=== PATIENT | male | born 1950 | race Caucasian/White ===

== ENCOUNTER → 2017-02-09 | Outpatient (CLI) | payer OTHER ==
--- NOTE | 2017-02-11 10:32 | P.ARTDOP ---
Arterial Doppler LOWER EXTREMITY ARTERIAL DOPPLER: DATE OF SERVICE: 02/09/2017 Reason for study: Suspected PVD. Status post revascularization effort of the left leg.. Doppler waveforms: Multiphasic bilaterally throughout. Pulse volume recording: Normal configuration to the ankle level. Some blunting at the toe level.. Pressure gradients: Only at the foot level. Ankle-brachial indices: Greater than 1 bilaterally. Toe pressures: 65 on the right, 68 on the left Impression: Normal from the ankle up. Possible mild distal disease. Perfusion pressures suspected to be adequate for healing..
== END | disposition home or self-care (01) ==
LOC: RADUSWWP 07:00
PROVIDERS: ATTEND Family Medicine
DX: I73.9 Peripheral vascular disease, unspecified (principal)
CPT/HCPCS: 93923

== ENCOUNTER → 2018-07-12 | Outpatient (CLI) | payer OTHER ==
[2018-07-12 13:06] LABS: Blood Urea Nitrogen 11 mg/dL (9-20)
--- NOTE | 2018-07-12 15:00 | CT ---
EXAMINATION TYPE: CT angio abdomen DATE OF EXAM: 07/12/2018 COMPARISON: None HISTORY: Abdominal aortic aneurysm. CT DLP: 1327.7 mGycm, Automated Exposure Control for Dose Reduction was Utilized. CONTRAST: CTA scan of the abdomen and pelvis is performed without oral and without and with IV Contrast, patien t injected with 100ml mL of Isovue 370. Three-D reconstructed images are created on independent works tation and reviewed. FINDINGS: VASCULAR: There is an infrarenal abdominal aortic aneurysm measuring up to 5.0 cm AP diameter by 4.9 cm transversely axial image 46. Extensive mural thrombus is identified. Length of the aneurysm is rou ghly 6 to 7 cm on coronal sagittal images. No extension into common iliac arteries is identified. The re is focal aneurysm in the left common iliac artery shortly after origin however axial image 56 ami uring up to 2.3 cm. There is focal aneurysm mid segment of the right common iliac artery measuring 1. 8 cm on axial image 58. Fairly moderate to severe mixed plaque in the left common iliac artery is not ed. There is stent graft seen distal to this which is likely patent. There is occlusion of the left i nternal iliac artery at its origin. Patency distal to this is noted. There is patency of the bilatera l external iliac arteries. There is moderate plaque in the right internal iliac artery without signif icant stenosis. There is patency common femoral artery level bilaterally with mild calcified plaque. Left groin clips are noted. There is patent celiac axis, SMA, and bilateral single renal arteries whi ch have mild to moderate calcified plaque noted at origin. Patent IGLESIA is identified. Patent posterior lumbar vessel is seen near axial image 44 through intramural thrombus. LUNG BASES: Dependent atelectasis is present. There is 12 x 11 mm lingular nodule or nodular consolid ation axial image 5 favoring round atelectasis. Consider PET/CT to exclude malignancy LIVER/GB: No significant abnormality is appreciated. PANCREAS: No significant abnormality is seen. SPLEEN: No significant abnormality is seen. ADRENALS: No significant abnormality is seen. KIDNEYS: There is simple appearing 2.2 cm cyst posterior laterally mid to lower pole level right kidn ey axial series 8 image 36. BOWEL: There is dilated distal esophagus with air-fluid level. Small hiatal hernia is seen distal to this PROSTATE/SEMINAL VESICLES: Prostate gland is mildly enlarged in size bulging on bladder base, underly ing BPH is felt present. LYMPH NODES: No greater than 1cm abdominal or pelvic lymph nodes are appreciated. OSSEOUS STRUCTURES: Some prominent multilevel spurring in the visualized lower thoracic spine is note d. OTHER: There is unusual earlier opacification of posterior aspect IVC due to opacified lumbar drainin g vessel to right of midline near axial images 27 through 32. Moderate sized fat-containing wide neck umbilical hernia is present axial image 48 series 8. IMPRESSION: 1. There is 5.0 cm infrarenal abdominal aortic aneurysm with extensive mural thrombus occupying up to 70% of vascular lumen, aneurysm is over 6 to 7.0 cm length. Additional focal aneurysm of the bilater al common iliac arteries is seen. There is patent left external iliac artery stent graft with occlusi on of the left internal iliac artery at its origin.
== END ==
LOC: RADCTMAIN 12:26
PROVIDERS: ATTEND Thoracic Surgery (Cardiothoracic Vascular Surgery)
DX: I71.4 Abdominal aortic aneurysm, without rupture (principal); Z95.828 Presence of other vascular implants and grafts
CPT/HCPCS: 82565; 84520; 74175; 36415; Q9967

== ENCOUNTER → 2019-03-09 | Outpatient (CLI) | payer OTHER ==
[2019-03-09 08:09] LABS: African American GFR (CKD) >90 (>60 ml/min/1.73 sqM); Blood Urea Nitrogen 14 mg/dL (9-20); Non-African American GFR(CKD) >90 (>60 ml/min/1.73 sqM)
--- NOTE | 2019-03-10 08:49 | CT ---
EXAMINATION TYPE: CT angio abd aorta w/Runoff DATE OF EXAM: 03/09/2019 12:50 PM COMPARISON: 07/12/2018 HISTORY: Aneurysm CT DLP: 2332.1 mGycm Automated exposure control for dose reduction was used. TECHNIQUE: Performed without and with IV Contrast, patient injected with 125 mL of Isovue 370. Axial, coronal and sagittal images before and after the use of intravenous contrast were performed of the abdomen and pelvis with runoff to the toes. FINDINGS: Noncontrast imaging shows a small amount of linear hyperattenuating material within the aneurysm sac along the right lateral and posterior aspect, which appears to be present on the prior exam. [place] tration of the infrarenal abdominal aortic aneurysm with aneurysmal sac measuring approximately 5.3 x 5.4 x 7.2 cm in AP by transverse by craniocaudad dimension. Previous aneurysm sac size on 07/12/2018 was measuring 5.0 x 4.9 cm in AP by transverse dimension. Redemonstration of extensive mural thrombu s measuring approximately to 7 cm in length. The neural thrombus along the left anterolateral portion of the sac has increased in size now measuring up to 0.7 cm and best seen on axial image 31. There i s redemonstration of posterior focal ulceration which is best seen on image 34. There is a new anteri or focal ulceration which is best seen on axial image 53. Redemonstration of bilateral focal aneurysm s in the proximal left common iliac artery and mid/distal right common iliac artery measuring 2.3 and 1.8 cm, respectively, and similar in size when compared to prior exam. Redemonstration of stent with in the left common iliac artery which is patent. Celiac artery, superior mesenteric artery, bilateral renal arteries and inferior mesenteric artery ar e patent. Bilateral external iliac arteries are patent with a few calcified atherosclerotic plaques. Stable focal aneurysm in the proximal right internal iliac artery measuring up to 0.9 cm. Bilateral i nternal iliac arteries are patent. The common femoral artery, deep profunda artery, superficial femoral artery, popliteal artery and angie f vessels are patent with runoff to the ankles/toes. A few scattered atheromatous plaques are seen ne ar the bifurcation of the femoral artery, but no significant flow restrictive stenosis is identified. Previously identified left upper lobe lingular nodular consolidation is not imaged. Reflux of contrast within the hepatic veins immediately basis of right heart failure. Liver, spleen, adrenal glands, pancreas appear grossly unremarkable. Symmetric perfusion the bilateral kidneys with midpole renal cyst measuring up to 2.5 cm Small hiatal hernia. Bowel gas pattern is nonobstructive. Pelvic structures appear grossly unremarkable. Redemonstration of small umbilical hernia measuring up to 1.8 cm. No evidence of osteolytic or osteoblastic lesions. IMPRESSION: INCREASING SIZE OF ABDOMINAL AORTIC ANEURYSM WHICH NOW MEASURES UP TO 5.4 CM WITH PREVIOUS MEASUREMEN T OF 5.0 CM. NEW FOCAL ULCERATION IN THE ANTEROLATERAL WALL MID INFRARENAL ABDOMINAL AORTIC ANEURYSM WITH INCREASE SIZE ALONG THE LEFT ANTEROLATERAL ASPECT OF THE MURAL THROMBUS. SURGICAL CONSULTATION I S RECOMMENDED. LEFT COMMON ILIAC STENT IS PATENT. PATENCY OF THE ARTERIAL VASCULATURE WITHIN THE BILATERAL LOWER EXTREMITIES WITHOUT EVIDENCE OF FLOW R ESTRICTIVE STENOSIS. STABLE BILATERAL COMMON ILIAC ARTERY ANEURYSMS. These findings were discussed with Dr. Coreas by Dr. Rueda at 8:43 AM on 03/10/2019.
== END | disposition home or self-care (01) ==
LOC: RADCTMAIN 07:11
DX: I71.4 Abdominal aortic aneurysm, without rupture (principal)
CPT/HCPCS: 82565; 84520; 75635; 36415; Q9967

== ENCOUNTER → 2019-06-16 | Outpatient (CLI) | payer OTHER ==
[2019-06-16 09:12] LABS: Basophils # (A) 0.1 k/uL (0-0.2); Basophils % (A) 1 %; Eosinophils # (A) 0.6 k/uL (0-0.7); Eosinophils % (A) 8 %; HCT 48.9 % (39.0-53.0); HGB 16.2 gm/dL (13.0-17.5); Lymphocytes # (A) 1.7 k/uL (1.0-4.8); Lymphocytes % (A) 23 %; MCH 32.9 pg (25.0-35.0); MCHC 33.1 g/dL (31.0-37.0); MCV 99.4 fL (80.0-100.0); Mean Platelet Volume 6.2; Monocytes # (A) 0.5 k/uL (0-1.0); Monocytes % (A) 6 %; Neutrophils # (A) 4.4 k/uL (1.3-7.7); Neutrophils % (A) 59 %; Platelet Count 226 k/uL (150-450); RBC 4.92 m/uL (4.30-5.90); RDW 12.5 % (11.5-15.5); WBC 7.3 k/uL (3.8-10.6)
[2019-06-16 17:33] LABS: African American GFR (CKD) 110.8 (60.0-200.0); Anion Gap 5.3 mmol/L (4.00-12.00); Carbon Dioxide 26.7 mmol/L (21.6-31.8); Non-African American GFR(CKD) 95.6 (60.0-200.0); Potassium 4.6 mmol/L (3.5-5.5)
== END | disposition home or self-care (01) ==
LOC: LABWHC1 08:30
PROVIDERS: ATTEND Surgery
DX: Z01.812 Encounter for preprocedural laboratory examination (principal); I71.4 Abdominal aortic aneurysm, without rupture
CPT/HCPCS: 36415; 80051; 82565; 84520; 85025

== ENCOUNTER 2019-06-28 07:14 | Inpatient (IN) | payer OTHER ==
[2019-06-21 13:31] VITALS: BMI 25.1
[~2019-06-28 07:14] MED LIST: ALBUMIN HUMAN 5% 250 ML in EMPTY BAG 1 BAG IVPB ONE; CALCIUM CHLORIDE 100 MG/ML 10 ML SYRINGE IVP ONE; CHLORHEXIDINE GLUCONATE 15 ML CUP MUCOUS MEM ONE; EPINEPHrine 10 ML SYRINGE (0.1 MG/ML) IV ONE; HEPARIN SODIUM 1,000 UN/ML (10ML VL) IV ONE; NITROGLYCERIN-D5W PMX 50 MG in DEXTROSE/WATER 1 250ML.BAG IV ONE; NOREPINEPHRINE 4 MG in SODIUM CHLORIDE 0.9% 250 ML IV ONE; PHENYLEPHRINE 10 MG/ML VIAL IV ONE; SODIUM BICARB 8.4% 50 ML SYR (1 MEQ/ML) IV ONE
[2019-06-28] MEDS ORDERED: SODIUM CHLORIDE 0.9% 1,000 ML IV ONE (07:50)
[2019-06-28 08:00] LABS: Basophils % (A) 0 %; Eosinophils # (A) 0.9 k/uL (0-0.7); Eosinophils % (A) 14 %; HCT 49.9 % (39.0-53.0); HGB 16.4 gm/dL (13.0-17.5); Lymphocytes # (A) 1.8 k/uL (1.0-4.8); Lymphocytes % (A) 26 %; MCH 32.5 pg (25.0-35.0); MCHC 32.9 g/dL (31.0-37.0); MCV 98.5 fL (80.0-100.0); Mean Platelet Volume 6.3; Monocytes # (A) 0.4 k/uL (0-1.0); Monocytes % (A) 5 %; Neutrophils # (A) 3.6 k/uL (1.3-7.7); Neutrophils % (A) 53 %; Platelet Count 193 k/uL (150-450); RBC 5.06 m/uL (4.30-5.90); RDW 12.3 % (11.5-15.5); WBC 6.9 k/uL (3.8-10.6)
[2019-06-28 08:09] LABS: African American GFR (CKD) >90 (>60 ml/min/1.73 sqM); Anion Gap 7 mmol/L; Blood Urea Nitrogen 14 mg/dL (9-20); Calcium 9.5 mg/dL (8.4-10.2); Carbon Dioxide 28 mmol/L (22-30); Chloride 105 mmol/L (98-107); Glucose 83 mg/dL (74-99); Non-African American GFR(CKD) >90 (>60 ml/min/1.73 sqM); Potassium 4.7 mmol/L (3.5-5.1); Sodium 140 mmol/L (137-145)
[2019-06-28] MEDS ORDERED: MIDAZOLAM 1 MG/ML 5 ML VIAL IV STA (08:39)
[2019-06-28] MEDS ORDERED: GLYCOPYRROLATE 0.2 MG/ML 2 ML VIAL ONE (10:34)
[2019-06-28] MEDS ORDERED: ePHEDrine SULFATE/0.9% NACL/PF 50 MG/5 ML SYRINGE IV ONE (10:34)
[2019-06-28] MEDS ORDERED: ONDANSETRON 4 MG/2 ML VIAL ONE (10:34)
[2019-06-28] MEDS ORDERED: LABETALOL 5 MG/ML VIAL MDV ONE (10:34)
[2019-06-28] MEDS ORDERED: LIDOCAINE 1% INJ 10MG/ML (20 ML MDV) ONE (10:34)
[2019-06-28] MEDS ORDERED: fentaNYL (PF) 50 MCG/ML 2 ML AMP ONE (10:34)
[2019-06-28] MEDS ORDERED: ROCURONIUM BROMIDE 10 MG/ML 10 ML VIAL IV ONE (10:34)
[2019-06-28] MEDS ORDERED: PROPOFOL 10 MG/ML 20 ML VIAL IV ONE (10:34)
[2019-06-28] MEDS ORDERED: HEPARIN SODIUM,PORCINE 10,000 UNIT/ML 1 ML VIAL ONE (10:34)
[2019-06-28] MEDS ORDERED: NEOSTIGMINE 1 MG/ML 10 ML VIAL ONE (10:34)
[2019-06-28] MEDS ORDERED: LIDOCAINE 1% INJ 10MG/ML (20 ML MDV) SQ ONE (11:10)
[2019-06-28] MEDS ORDERED: IOPAMIDOL-300 100ML BTL INJ ONE ×2 (12:36→12:37)
[2019-06-28] MEDS ORDERED: IOPAMIDOL-370 50ML BTL INJ ONE (12:37)
--- NOTE | 2019-06-28 12:59 | P.OP ---
Date of Procedure: 06/28/19 Preoperative Diagnosis: Infrarenal abdominal aortic aneurysm measuring 5.5 cm with small infrarenal aortic dissection. Right common iliac artery ectasia. Postoperative Diagnosis: Same plus type II endoleak Procedure(s) Performed: 1. Endovascular aortic repair with ovation Ix graft 2. Intravascular ultrasound of the aorta, bilateral iliac arteries. 3. Ultrasound-guided access of bilateral common femoral arteries 4. Perclose closure device placement bilateral common femoral arteries. Anesthesia: OLIA Surgeon: Kwabena Ford Estimated Blood Loss (ml): 30 IV fluids (ml): 950 Urine output (ml): 150 Pathology: none sent Condition: stable Disposition: PACU Indications for Procedure: 69-year-old gentleman presents to the hospital for elective repair of infrarenal abdominal aortic aneurysm measuring 5.5 cm on recent CTA. On ultrasound it was noted to be greater than 5-1/2 cm. He also had a iliac ectasia. Operative Findings: Intravascular ultrasound demonstrated 5.5 cm aneurysm. Description of Procedure: After written informed consent was obtained the patient all risks benefits competitions were described the patient is brought to the Guidance Secretary laid in supine position. The area of the groins were prepped and draped in usual sterile fashion after appropriate anesthetic was performed per the anesthesiologist. A timeout was performed in normal fashion and antibiotics were administered prior to incision. Utilizing ultrasound the bilateral common femoral arteries were visualized shown to be patent without any significant calcification. Under ultrasound guidance and utilizing a multipurpose needle of the common femoral arteries were accessed bilaterally. 035 Glidewire were placed followed by Perclose closure devices 2 in each groin. A 7-Albanian she ath was then placed in normal fashion. 035 Glidewire was then placed into the aorta and 7-Albanian sheath was removed and a 10-Albanian sheath was placed followed by IVUS catheter. IVUS catheter was then placed at the L2 vertebra level to visualize the takeoff of the renal arteries bilaterally. At the 13 mm distal aspect of the renal arteries measurements were obtained on either this which were 20.5 x 21 mm. This therefore called for a 26 mm main body graft. IVUS catheter was then taken up above the renal arteries and wire was exchanged for a Lunderquist wire. A 26 mm main body graft was then placed over the Lunderquist wire after removal of the 7-Albanian sheath at the L2 vertebra level. Pigtail catheter was then placed up the left femoral sheath. Angiogram of the aorta and iliacs were then obtained demonstrating patent aorta and common iliacs with occluded internal iliac artery on the left with reconstitution. The main body was then deployed in normal fashion just distal to the renal arteries. Polymer was then placed under direct visualization of fluoroscopy in normal fashion. 035 Glidewire and pigtail catheter were withdrawn and the contralateral limb was cannulated with the 035 Glidewire and an angled glide catheter. Once into the gate the catheter was removed replaced with an IVUS catheter and gate cannulation was confirmed. Wire was then exchanged for a Lunderquist wire and retrograde angiogram was obtained delineating the internal iliac artery which was just distal to the existing stent in the common iliac artery. A 12 x 140 mm contralateral iliac limb was then deployed in normal fashion after removal of the existing sheath. Once completed attention was then placed back to the main body and final deployment was performed. Wire was once again replaced into the aorta and the deployment device was removed. IVUS catheter was once again placed up the ipsilateral limb and retrograde angiogram was obtained to delineate the internal iliac artery. A 22 x 140 mm brito bottom limb was then placed in the ipsilateral iliac in normal fashion. Utilizing a Q50 balloon balloon angioplasty was performed at the rings. Two 10 x 40 mm balloons were then placed in a kissing fashion along the areas of the overlapping grafts. Final angiogram was obtained via pigtail catheter which demonstrated no evidence of a type I, type III or type IV endoleak. There was a late type II endoleak from a sacral artery as well as the inferior mesenteric artery in a retrograde fashion. All guidewires and catheters were removed Perclose closure devices were secured for hemostasis. Hemostasis was achieved and dressings were placed. The patient all procedure well and was sent to PACU for recovery. He had palpable PT pulses at the conclusion of the procedure.
[2019-06-28 14:10] LABS: Glucose,Whole Blood 55 mg/dL (75-99)
[2019-06-28] MEDS ORDERED: DEXTROSE 10 % IN WATER 250 ML IV ONE (14:32)
[2019-06-28 14:50] LABS: Glucose,Whole Blood 61 mg/dL (75-99)
[2019-06-28 14:50] LABS: Glucose,Whole Blood 54 mg/dL (75-99)
[2019-06-28 14:57] LABS: Glucose,Whole Blood 66 mg/dL (75-99)
[2019-06-28 15:03] LABS: Basophils % (A) 0 %; Eosinophils # (A) 0.9 k/uL (0-0.7); Eosinophils % (A) 11 %; HCT 48.1 % (39.0-53.0); Lymphocytes # (A) 1.9 k/uL (1.0-4.8); Lymphocytes % (A) 23 %; MCH 32.7 pg (25.0-35.0); MCHC 33.3 g/dL (31.0-37.0); MCV 98.1 fL (80.0-100.0); Mean Platelet Volume 6.5; Monocytes # (A) 0.3 k/uL (0-1.0); Monocytes % (A) 4 %; Neutrophils # (A) 4.9 k/uL (1.3-7.7); Neutrophils % (A) 60 %; Platelet Count 174 k/uL (150-450); RDW 12.4 % (11.5-15.5); WBC 8.1 k/uL (3.8-10.6)
[2019-06-28] MEDS ORDERED: hydrALAZINE HCL 20 MG/ML 1 ML VIAL IVP STA (15:04)
[2019-06-28 15:09] LABS: Glucose,Whole Blood 102 mg/dL (75-99)
[2019-06-28 15:18] LABS: African American GFR (CKD) >90 (>60 ml/min/1.73 sqM); Anion Gap 6 mmol/L; Blood Urea Nitrogen 12 mg/dL (9-20); Calcium 8.8 mg/dL (8.4-10.2); Carbon Dioxide 20 mmol/L (22-30); Chloride 109 mmol/L (98-107); Glucose 212 mg/dL (74-99); Non-African American GFR(CKD) >90 (>60 ml/min/1.73 sqM); Potassium 4.5 mmol/L (3.5-5.1); Sodium 135 mmol/L (137-145)
[2019-06-28] MEDS ORDERED: CLEVIDIPINE BUTYRATE 25 MG in EMPTY BAG 1 BAG IV SCH (15:30)
--- NOTE | 2019-06-28 15:32 | P.CONS ---
History of Present Illness - Reason for Consult Consult date: 06/28/19 COPD Requesting physician: Kwabena Ford - Chief Complaint Abdominal aortic aneurysm - History of Present Illness patient is a 69-year-old male past medical history of tobacco abuse, dyslipidemia, GERD, and beginning stages of COPD presented for elective abdomin al aortic aneurysmrepair. He underwent endovascular aortic repair with placement of one graft. He has subsequently admitted to the ICU. He did not have any immediate postoperative complications. On arrival to the ICU he was hypertensive with a blood pressure of 168/86. patient seen and examined at bedside. He denies any lightheadedness, dizziness, nausea and vomiting, chest pain, or shortness of breath. He states that his normal state of health prior to surgery. He hasn't had any recent illnesses. He has not had any recent adjustment in his medications. He admits to being noncompliant with his cholesterol medications. He states that his aortic aneurysm was found 3 months ago on a routine screening exam ordered through the [place] and in [place]. Review of Systems Pertinent positives and negatives as discussed in HPI, a complete review of systems was performed and all other systems are negative. Past Medical History Past Medical History: COPD, GERD/Reflux, Pneumonia Additional Past Medical History / Comment(s): aortic aneurysm, dyslipidemia History of Any Multi-Drug Resistant Organisms: None Reported Past Surgical History: Appendectomy Additional Past Surgical History / Comment(s): iliac stent, aortic stent Past Anesthesia/Blood Transfusion Reactions: No Reported Reaction Smoking Status: Current every day smoker Past Alcohol Use History: Heavy Additional History: initial patient tells me he drinks 6 beers daily, but he changes it to 2-3 beers on the weekends, his story is rather inconsistent. He lives alone. He does not use any assistive devices. - Past Family History Mother Family Medical History: Liver Disease Additional Family Medical History / Comment(s): liver cirrhosis Brother(s) Family Medical History: Vascular Disorder Father Family Medical History: Myocardial Infarction (SD) Medications and Allergies Home Medications Medication Instructions Recorded Confirmed Type Albuterol Sulfate [Ventolin HFA] 1 - 2 puff INHALATION Q6H PRN 06/21/19 06/21/19 History Aspirin 81 mg PO DAILY 06/21/19 06/28/19 History Atorvastatin Calcium [Lipitor] 20 mg PO HS 06/21/19 06/28/19 History Budesonide-Formot 160-4.5 Mcg 2 puff INHALATION RT-BID 06/21/19 06/28/19 History [Symbicort 160-4.5 Mcg Inhaler (Bulk)] Ipratropium-Albuterol Nebulize 3 ml INHALATION Q6H PRN 06/21/19 06/21/19 History [Duoneb 0.5 mg-3 mg/3 ml Soln] Omeprazole 20 mg PO QAM 06/21/19 06/28/19 History Ranitidine HCl 150 mg PO HS 06/21/19 06/28/19 History Allergies Allergy/AdvReac Type Severity Reaction Status Date / Time tomato AdvReac acid reflux Verified 06/21/19 13:11 Physical Exam Osteopathic Statement: *. No significant issues noted on an osteopathic structural exam other than those noted in the History and Physical/Consult. Vitals: Vital Signs Temp Pulse Resp BP Pulse Ox 06/28/19 13:39 54 L 16 167/88 98 06/28/19 13:25 55 L 16 168/86 98 06/28/19 13:10 56 L 18 172/90 100 06/28/19 12:55 97 F L 62 16 165/79 94 L 06/28/19 07:41 97.8 F 62 16 161/71 97 Intake and Output 06/28/19 06/28/19 06/28/19 06:59 14:59 22:59 Intake Total 1075 Output Total 400 Balance 675 Intake: IV 1075 Output: Urine 400 Other: Weight 79.6 kg General: non toxic, no distress, appears at stated age, normal weight Derm: no unusual rashes/lesions no unusual ecchymoses, warm, dry Head: atraumatic, normocephalic, symmetric Eyes: EOMI, no lid lag, anicteric sclera, pupils equal round reactive to lightENT: Nose and ears atraumatic, no thrush, no pharyngeal erythema Neck: No thyromegaly, no cervical lymphadenopathy, trachea midline, supple Mouth: no lip lesion, mucus membranes moist Cardiovascular: S1S2 reg, no murmur, palpableherself pedis pulses on right foot, dopplerabledorsalis pedis pulse left foot, no edema, capillary refill less than 2 seconds Lungs: decreased breath sounds bilateral, no rhonchi, no rales , no accessory muscle use Abdominal: soft, nontender to palpation, no guarding, no appreciable organomegaly, normal bowel sounds Ext: no gross muscle atrophy, muscle strength 5 out of 5 in all 4 extremities grossly, no contractures, Neuro: CN II-XI grossly intact, light touch intact all 4 extremities, finger to nose within normal limits, Psych: Alert, oriented, appropriate affect Results CBC & Chem 7: 06/28/19 14:42 06/28/19 07:43 Labs: Abnormal Lab Results - Last 24 Hours (Table) 06/28/19 06/28/19 06/28/19 Range/Units 07:43 13:58 14:15 Eosinophils # 0.9 H (0-0.7) k/uL POC Glucose (mg/dL) 55 L 61 L (75-99) mg/dL 06/28/19 06/28/19 06/28/19 Range/Units 14:31 14:42 14:45 Eosinophils # 0.9 H (0-0.7) k/uL POC Glucose (mg/dL) 54 L 66 L (75-99) mg/dL Assessment and Plan Assessment: Elevated blood pressure without diagnosis of hypertension - IV hydralazine ordered by Vascular surgery - Follow BP - ? related tro ETOH w/d, trial dose of ativan - Clevidipine ordered by critical care HLD - statin therapy Tobacco abuse - cessation - nicotine replacement GERD - PPI and H2 veronica from home reordered Alcohol misuse - CIWI protocol - Thiamine and folic acid COPD without exacerbation - Resume more symbicort and prn duonebs - Pulmonary hygiene DVT prophylaxis: SCDs Discussed with: Patient, nursing, family Anticipated discharge: in AM Anticipated discharge place: home A total of 40 minutes was spent on the care of this complex patient more than 50% of the time was spent in counseling and care coordination. Patient's PCP apparently is typically seen by [facility] and we will transfer medical management to them in AM. D/W Dr. Stapleton.
--- NOTE | 2019-06-28 16:22 | P.CNPUL ---
History of Present Illness Consult date: 06/28/19 Reason for consult: other Chief complaint: Abdominal aortic aneurysm, status post endovascular repair History of present illness: This is a 69-year-old white male patient with has medical history of 48 years of smoking, GERD/reflux, dyslipidemia, who presented today on 06/28/2019 for elective repair of abdominal aortic aneurysm. Patient had endovascular aortic repair with placement of a graft. He was admitted to the intensive care unit in the postoperative period and we are consulted for intensive care management, requiring our evaluation patient is resting in bed in reverse Trendelenburg, awake and alert, in no acute distress other than some discomfort from the indwelling catheter. Denies any pain, denies any shortness of breath, no chest pain, he is a bit hypertensive with a systolic in the 160-170 range, afebrile, room air pulse ox is 98%, lung sounds are positive for a few scattered rhonchi and wheezing. Today's labs have been reviewed, no new chest x-ray. Review of Systems All systems: negative Constitutional: Denies chills, Denies fever Eyes: denies blurred vision, denies pain Ears, nose, mouth and throat: Denies headache, Denies sore throat Cardiovascular: Denies chest pain, Denies shortness of breath Respiratory: Denies cough Gastrointestinal: Denies abdominal pain, Denies diarrhea, Denies nausea, Denies vomiting Musculoskeletal: Denies myalgias Integumentary: Denies pruritus, Denies rash Neurological: Denies numbness, Denies weakness Psychiatric: Denies anxiety, Denies depression Endocrine: Denies fatigue, Denies weight change Past Medical History Past Medical History: COPD, GERD/Reflux, Pneumonia Additional Past Medical History / Comment(s): aortic aneurysm, dyslipidemia History of Any Multi-Drug Resistant Organisms: None Reported Past Surgical History: Appendectomy Additional Past Surgical History / Comment(s): iliac stent, aortic stent Past Anesthesia/Blood Transfusion Reactions: No Reported Reaction Smoking Status: Current every day smoker Past Alcohol Use History: Heavy - Past Family History Mother Family Medical History: Liver Disease Additional Family Medical History / Comment(s): liver cirrhosis Brother(s) Family Medical History: Vascular Disorder Father Family Medical History: Myocardial Infarction ([place]) Medications and Allergies Home Medications Medication Instructions Recorded Confirmed Type Albuterol Sulfate [Ventolin HFA] 1 - 2 puff INHALATION Q6H PRN 06/21/19 06/21/19 History Aspirin 81 mg PO DAILY 06/21/19 06/28/19 History Atorvastatin Calcium [Lipitor] 20 mg PO HS 06/21/19 06/28/19 History Budesonide-Formot 160-4.5 Mcg 2 puff INHALATION RT-BID 06/21/19 06/28/19 History [Symbicort 160-4.5 Mcg Inhaler (Bulk)] Ipratropium-Albuterol Nebulize 3 ml INHALATION Q6H PRN 06/21/19 06/21/19 History [Duoneb 0.5 mg-3 mg/3 ml Soln] Omeprazole 20 mg PO QAM 06/21/19 06/28/19 History Ranitidine HCl 150 mg PO HS 06/21/19 06/28/19 History Allergies Allergy/AdvReac Type Severity Reaction Status Date / Time tomato AdvReac acid reflux Verified 06/21/19 13:11 Physical Exam Vitals: Vital Signs Temp Pulse Resp BP Pulse Ox 06/28/19 13:39 54 L 16 167/88 98 06/28/19 13:25 55 L 16 168/86 98 06/28/19 13:10 56 L 18 172/90 100 06/28/19 12:55 97 F L 62 16 165/79 94 L 06/28/19 07:41 97.8 F 62 16 161/71 97 Intake and Output 06/28/19 06/28/19 06/28/19 06:59 14:59 22:59 Intake Total 1075 Output Total 400 Balance 675 Intake: IV 1075 Output: Urine 400 Other: Weight 79.6 kg GENERAL EXAM: Alert, very pleasant, 69-year-old white male, sitting in bed in the intensive care unit in reverse Trendelenburg comfortable in no apparent distress. HEAD: Normocephalic/atraumatic. EYES: Normal reaction of pupils, equal size. Conjunctiva pink, sclera white. NOSE: Clear with pink turbinates. THROAT: No erythema or exudates. NECK: No masses, no JVD, no thyroid enlargement, no adenopathy. CHEST: No chest wall deformity. Symmetrical expansion. LUNGS: Equal air entry with scattered wheezes and rhonchi CVS: Regular rate and rhythm, normal S1 and S2, no gallops, no murmurs, no rubs ABDOMEN: Soft, nontender. No hepatosplenomegaly, normal bowel sounds, no guarding or rigidity. EXTREMITIES: No clubbing, no edema, no cyanosis, 2+ pulses and upper and lower extremities. Bilateral groin incisions are clean dry and intact covered with surgical dressings MUSCULOSKELETAL: Muscle strength and tone normal. SPINE: No scoliosis or deformity SKIN: No rashes CENTRAL NERVOUS SYSTEM: Alert and oriented -3. No focal deficits, tone is normal in all 4 extremities. PSYCHIATRIC: Alert and oriented -3. Appropriate affect. Intact judgment and insight. Results - Laboratory Findings CBC and BMP: 06/28/19 14:42 06/28/19 14:42 Abnormal lab findings: Abnormal Labs 06/28/19 06/28/19 06/28/19 07:43 13:58 14:15 Eosinophils # 0.9 H Sodium Chloride Carbon Dioxide Creatinine Glucose POC Glucose (mg/dL) 55 L 61 L 06/28/19 06/28/19 06/28/19 14:31 14:42 14:42 Eosinophils # 0.9 H Sodium 135 L Chloride 109 H Carbon Dioxide 20 L Creatinine 0.65 L Glucose 212 H POC Glucose (mg/dL) 54 L 06/28/19 06/28/19 14:45 14:58 Eosinophils # Sodium Chloride Carbon Dioxide Creatinine Glucose POC Glucose (mg/dL) 66 L 102 H Assessment and Plan Plan: Assessment: #1. Abdominal aortic aneurysm measuring 5.5 cm with small infrarenal aortic dissection, and right common iliac artery ectasia, status post endovascular repair with stent placement, postop day 0 #2. Chronic tobacco abuse, patient carries at least 40+ some years of smoking #3. Dyslipidemia #4. Hypertension #5. Previous episode of pneumonia #6. EtOH abuse Plan: Start Cleviprex for blood pressure control to keep systolic under 150 mmHg. Continue breathing treatments. [facility] protocol for possibility of acute alcohol withdrawal. Close hemodynamic monitoring, antibiotics per surgery. We'll continue to follow I performed a history & physical examination of the patient and discussed their management with my nurse practitioner, Glenda Avila. I reviewed the nurse practitioner's note and agree with the documented findings and plan of care. Lung sounds are positive for diffuse wheezes throughout the lung franklin. The findings and the impression was discussed with the patient. I attest to the do cumentation by the nurse practitioner. Time with Patient: Greater than 30
[2019-06-28] MEDS: IPRATROPIUM-ALBUTEROL 3 ML NEB INHALATION PRN (17:35)
[2019-06-28] MEDS: SYMBICORT 160-4.5 MCG INHALER INHALATION SCH (19:36)
[2019-06-28] MEDS: SODIUM CHLORIDE 0.9% 1,000 ML IV SCH ×2 (20:26→20:35)
[2019-06-28 20:40] LABS: Glucose,Whole Blood 128 mg/dL (75-99)
[2019-06-28] MEDS ORDERED: FAMOTIDINE 20 MG TAB PO SCH (21:00)
[2019-06-28] MEDS ORDERED: ATORVASTATIN 20 MG TAB PO SCH (21:00)
[2019-06-28] MEDS ORDERED: PRAVASTATIN SODIUM 40 MG TAB PO SCH (21:00)
[2019-06-29 05:39] LABS: African American GFR (CKD) >90 (>60 ml/min/1.73 sqM); Non-African American GFR(CKD) >90 (>60 ml/min/1.73 sqM)
[2019-06-29] MEDS ORDERED: PANTOPRAZOLE 40 MG TABLET PO SCH (07:30)
[2019-06-29] MEDS: SYMBICORT 160-4.5 MCG INHALER INHALATION SCH (07:35)
[2019-06-29] MEDS: IPRATROPIUM-ALBUTEROL 3 ML NEB INHALATION PRN (07:35)
[2019-06-29] MEDS: SODIUM CHLORIDE 0.9% 1,000 ML IV SCH (08:26)
[2019-06-29] MEDS ORDERED: NICOTINE 14MG/24HR PATCH TRANSDERM SCH (09:00)
[2019-06-29] MEDS ORDERED: ASPIRIN 81 MG PO SCH (09:00)
[2019-06-29] MEDS ORDERED: FOLIC ACID 1 MG TAB PO SCH (09:00)
[2019-06-29] MEDS ORDERED: THIAMINE 100 MG TAB PO SCH (09:00)
[2019-06-29 09:02] LABS: HCT 46.6 % (39.0-53.0); HGB 15.9 gm/dL (13.0-17.5); MCH 33.1 pg (25.0-35.0); MCHC 34.1 g/dL (31.0-37.0); MCV 97.1 fL (80.0-100.0); Mean Platelet Volume 6.1; Platelet Count 184 k/uL (150-450); RDW 12.5 % (11.5-15.5); WBC 10.5 k/uL (3.8-10.6)
[2019-06-29 09:14] LABS: African American GFR (CKD) >90 (>60 ml/min/1.73 sqM); Anion Gap 9 mmol/L; Blood Urea Nitrogen 11 mg/dL (9-20); Calcium 9.4 mg/dL (8.4-10.2); Carbon Dioxide 21 mmol/L (22-30); Chloride 109 mmol/L (98-107); Glucose 190 mg/dL (74-99); Non-African American GFR(CKD) >90 (>60 ml/min/1.73 sqM); Potassium 4.2 mmol/L (3.5-5.1); Sodium 139 mmol/L (137-145)
--- NOTE | 2019-06-29 11:24 | P.PN ---
Subjective Progress Note Date: 06/29/19 Principal diagnosis: Abdominal aortic aneurysm, status post endovascular repair postoperative day #1 This is a 69-year-old white male patient with has medical history of 48 years of smoking, GERD/reflux, dyslipidemia, who presented today on 06/28/2019 for elective repair of abdominal aortic aneurysm. Patient had endovascular aortic repair with placement of a graft. He was admitted to the intensive care unit in the postoperative period and we are consulted for intensive care management, requiring our evaluation patient is resting in bed in reverse Trendelenburg, awake and alert, in no acute distress other than some discomfort from the indwelling catheter. Denies any pain, denies any shortness of breath, no chest pain, he is a bit hypertensive with a systolic in the 160-170 range, afebrile, room air pulse ox is 98%, lung sounds are positive for a few scattered rhonchi and wheezing. Today's labs have been reviewed, no new chest x-ray. Reevaluated today on 06/29/2019, patient is doing great, he is off clevidipine drip, he is hemodynamically stable, in no form of distress. CBC is relatively unremarkable today, a left lites are normal and renal profile is normal. Hence patient is being considered for discharge today. Objective - Vital Signs Vital signs: Vital Signs Temp 96.7 F L 06/29/19 08:00 Pulse 51 L 06/29/19 11:00 Resp 19 06/29/19 11:00 BP 104/78 06/29/19 11:00 Pulse Ox 95 06/29/19 11:00 Intake & Output 06/28/19 06/29/19 06/29/19 18:59 06:59 18:59 Intake Total 2245 1300 400 Output Total 1130 1320 250 Balance 1115 -20 150 Weight 79.6 kg 81 kg Intake: IV 1575 1100 400 Sodium Chloride 0.9% 1, 500 1100 400 000 ml @ 100 mls/hr IV . Q10H [facility] Rx#:[id number] Oral 670 200 Output: Urine 1130 1320 250 Other: Voiding Method Indwelling Catheter Indwelling Catheter Indwelling Catheter ABP, PAP, CO, CI - Last Documented Arterial Blood Pressure 137/82 - Exam GENERAL EXAM: Alert, very pleasant, 69-year-old white male, and a bedside chair, on room air, in no distress. HEENT: PERRLA, EOMI, no active. No neck masses no JVD, no stridor. CHEST: No chest wall deformity. Symmetrical expansion. LUNGS: Equal air entry with scattered wheezes and rhonchi CVS: Regular rate and rhythm, normal S1 and S2, no gallops, no murmurs, no rubs ABDOMEN: Soft, nontender. No hepatosplenomegaly, normal bowel sounds, no guarding or rigidity. EXTREMITIES: No clubbing, no edema, no cyanosis, 2+ pulses and upper and lower extremities. Bilateral groin incisions are clean dry and intact covered with surgical dressings MUSCULOSKELETAL: Muscle strength and tone normal. SPINE: No scoliosis or deformity SKIN: No rashes CENTRAL NERVOUS SYSTEM: Alert and oriented -3. No focal deficits, tone is normal in all 4 extremities. PSYCHIATRIC: Alert and oriented -3. Appropriate affect. Intact judgment and insight. - Labs CBC & Chem 7: 06/29/19 08:43 06/29/19 08:43 Labs: Abnormal Lab Results - Last 24 Hours (Table) 06/28/19 06/28/19 06/28/19 Range/Units 13:58 14:15 14:31 Eosinophils # (0-0.7) k/uL Sodium (137-145) mmol/L Chloride (98-107) mmol/L Carbon Dioxide (22-30) mmol/L Creatinine (0.66-1.25) mg/dL Glucose (74-99) mg/dL POC Glucose (mg/dL) 55 L 61 L 54 L (75-99) mg/dL 06/28/19 06/28/19 06/28/19 Range/Units 14:42 14:42 14:45 Eosinophils # 0.9 H (0-0.7) k/uL Sodium 135 L (137-145) mmol/L Chloride 109 H (98-107) mmol/L Carbon Dioxide 20 L (22-30) mmol/L Creatinine 0.65 L (0.66-1.25) mg/dL Glucose 212 H (74-99) mg/dL POC Glucose (mg/dL) 66 L (75-99) mg/dL 06/28/19 06/28/19 06/29/19 Range/Units 14:58 20:29 05:04 Eosinophils # (0-0.7) k/uL Sodium (137-145) mmol/L Chloride (98-107) mmol/L Carbon Dioxide (22-30) mmol/L Creatinine 0.61 L (0.66-1.25) mg/dL Glucose (74-99) mg/dL POC Glucose (mg/dL) 102 H 128 H (75-99) mg/dL 06/29/19 Range/Units 08:43 Eosinophils # (0-0.7) k/uL Sodium (137-145) mmol/L Chloride 109 H (98-107) mmol/L Carbon Dioxide 21 L (22-30) mmol/L Creatinine 0.62 L (0.66-1.25) mg/dL Glucose 190 H (74-99) mg/dL POC Glucose (mg/dL) (75-99) mg/dL Assessment and Plan Assessment: #1. Abdominal aortic aneurysm measuring 5.5 cm with small infrarenal aortic dissection, and right common iliac artery ectasia, status post endovascular repair with stent placement, postoperative day #1. #2. Chronic tobacco abuse, patient carries at least 40+ some years of smoking however the patient has no active symptoms of shortness of breath. Counseled regarding smoking cessation. #3. Dyslipidemia #4. Hypertension #5. Previous episode of pneumonia #6. EtOH abuse Recommendation: Continue present treatment plan, resume home meds, clear from my perspective for discharge planning if cleared to go home by surgery. Patient can follow-up with me on outpatient basis if there is any concern about his pulmonary status in the future. Time with Patient: Less than 30
[2019-06-29 12:13] VITALS: TEMP 97.6
--- NOTE | 2019-06-29 13:19 | P.DS ---
Providers Date of admission: 06/28/19 07:14 Attending physician: Kwabena Ford DO Consults: 06/28/19 15:10 Consult Physician Routine Consulting Provider: Cameron Pollock Consult Reason/Comments: ICU Do you want consulting provider notified?: Already Contacted 06/29/19 07:49 Consult Physician Routine Consulting Provider: Delisa Viera Consult Reason/Comments: medical consult Do you want consulting provider notified?: Yes Primary care physician: [facility] Hospital Course: Patient is a 69-year-old gentleman who presented to the hospital yesterday for an elective repair of the infrarenal abdominal aortic aneurysm measuring 5.[address] Kwabena Ford. Patient seen and evaluated in the ICU. The patient was sitting up in a chair, with no complaints of shortness of breath or chest pa in. Patient denied any bleeding from the groins, denies any abdominal pain, has mild discomfort in right lateral groin. Patient tolerating diet, had Lopez catheter removed and up ambulating. Patient will follow up with Dr. Ford in the office in 2 weeks. Discuss with patient no heavy lifting, no tub bathing, may shower tomorrow, and increase activity as tolerated. General appearance: The patient is alert, oriented, in no acute distress. Heart: S1 S2. Regular rate and rhythm. Lungs: clear to auscultation with B/L lower expiratory wheezes Abdomen: Soft, nontender, nondistended with bowel sounds. Groin: Bilateral groins with dressing clean dry and intact. No evidence of hematoma. Extremities: Normal skin color and turgor. No cyanosis, rash, ulceration, clubbing, or edema. Radial and pedal pulses are 2/4 bilaterally. Neurological: No focal deficits. Strength and sensation are grossly intact. Assessment: Patient status post elective repair of infrarenal abdominal aortic aneurysm ovation Ix graft Right common iliac artery ectasia Perclose closure device placement bilateral common femoral arteries Procedures: 1. Endovascular aortic repair with ovation Ix graft 2. Intravascular ultrasound of the aorta, bilateral iliac arteries 3. Ultrasound-guided access of bilateral common femoral arteries 4. Perclose closure device placement bilateral common femoral arteries Patient Condition at Discharge: Good Plan - Discharge Summary Discharge Rx Participant: No New Discharge Prescriptions: New Thiamine [Vitamin B-1] 100 mg PO DAILY #30 tablet Continue Aspirin 81 mg PO DAILY Budesonide-Formot 160-4.5 Mcg [Symbicort 160-4.5 Mcg Inhaler (Bulk)] 2 puff INHALATION RT-BID Albuterol Sulfate [Ventolin HFA] 1 - 2 puff INHALATION Q6H PRN PRN Reason: sob Ranitidine HCl 150 mg PO HS Omeprazole 20 mg PO QAM Atorvastatin Calcium [Lipitor] 20 mg PO HS Ipratropium-Albuterol Nebulize [Duoneb 0.5 mg-3 mg/3 ml Soln] 3 ml INHALATION Q6H PRN PRN Reason: sob Discharge Medication List Albuterol Sulfate [Ventolin HFA] 1 - 2 puff INHALATION Q6H PRN 06/21/19 [History] Aspirin 81 mg PO DAILY 06/21/19 [History] Atorvastatin Calcium [Lipitor] 20 mg PO HS 06/21/19 [History] Budesonide-Formot 160-4.5 Mcg [Symbicort 160-4.5 Mcg Inhaler (Bulk)] 2 puff INHALATION RT-BID 06/21/19 [History] Ipratropium-Albuterol Nebulize [Duoneb 0.5 mg-3 mg/3 ml Soln] 3 ml INHALATION Q6H PRN 06/21/19 [History] Omeprazole 20 mg PO QAM 06/21/19 [History] Ranitidine HCl 150 mg PO HS 06/21/19 [History] Thiamine [Vitamin B-1] 100 mg PO DAILY #30 tablet 06/29/19 [Rx] Follow up Appointment(s)/Referral(s): Kwabena Ford DO [STAFF PHYSICIAN] - 2 Weeks (Appointment scheduled for 2018 at 2:45pm.) [facility] [Primary Care Provider] - 4 Weeks (Appointment scheduled for 2018 at 3:00pm. ) Patient Instructions/Handouts: Endovascular Aneurysm Repair of Abdominal Aorta ([place]) Activity/Diet/Wound Care/Special Instructions: Increase activity as tolerated. No tub bathing. May shower tomorrow 06/30/2019, no heavy lifting. Discharge Disposition: HOME SELF-CARE
[2019-06-29 13:43] VITALS: BP 141/96; PULSE 68; RESP 19
--- NOTE | 2019-06-29 15:21 | P.PN ---
Subjective No overnight events patient is being discharged today does have some wheezing on exam patient does have inhalers at home extensive nicotine cessation counseling was provided patient said he will try to quit smoking Constitutional: Denied any fatigue denied any fever. Cardio vascular: denied any chest pain, palpitations Gastrointestinal denied any nausea vomiting Pulmonary: Denied any shortness of breath cough Neurologic denied any new focal deficits All inpatient medications were reviewed and appropriate changes in these medications as dictated in the interval history and assessment and plan. Objective - Vital Signs Vital signs: Vital Signs Temp 97.6 F 06/29/19 12:00 Pulse 68 06/29/19 13:00 Resp 19 06/29/19 13:00 BP 141/96 06/29/19 13:00 Pulse Ox 92 L 06/29/19 13:00 Intake & Output 06/28/19 06/29/19 06/29/19 18:59 06:59 18:59 Intake Total 2245 1300 400 Output Total 1130 1320 825 Balance 1115 -20 -425 Weight 79.6 kg 81 kg Intake: IV 1575 1100 400 Sodium Chloride 0.9% 1, 500 1100 400 000 ml @ 100 mls/hr IV . Q10H [facility] Rx#:[id number] Oral 670 200 Output: Urine 1130 1320 825 Other: Voiding Method Indwelling Catheter Indwelling Catheter Indwelling Catheter # Voids 1 ABP, PAP, CO, CI - Last Documented Arterial Blood Pressure 137/82 - Exam PHYSICAL EXAMINATION: GENERAL: The patient is alert and oriented x3, not in any acute distress. Well developed, well nourished. HEENT: Pupils are round and equally reacting to light. EOMI. No scleral icterus. No conjunctival pallor. Normocephalic, atraumatic. No pharyngeal erythema. No thyromegaly. CARDIOVASCULAR: S1 and S2 present. No murmurs, rubs, or gallops. PULMONARY: Mild expiratory wheezing on exam. ABDOMEN: Soft, nontender, nondistended, normoactive bowel sounds. No palpable organomegaly. MUSCULOSKELETAL: No joint swelling or deformity. EXTREMITIES: No cyanosis, clubbing, or pedal edema. NEUROLOGICAL: Gross neurological examination did not reveal any focal deficits. SKIN: No rashes. - Labs CBC & Chem 7: 06/29/19 08:43 06/29/19 08:43 Labs: Abnormal Lab Results - Last 24 Hours (Table) 06/28/19 06/29/19 06/29/19 Range/Units 20:29 05:04 08:43 Chloride 109 H (98-107) mmol/L Carbon Dioxide 21 L (22-30) mmol/L Creatinine 0.61 L 0.62 L (0.66-1.25) mg/dL Glucose 190 H (74-99) mg/dL POC Glucose (mg/dL) 128 H (75-99) mg/dL Assessment and Plan Plan: Hypertension fairly controlled blood pressure at this time patient will continue his home regimen no additional medications are being added -COPD with mildly acute exacerbation (systemic steroids patient will resume his inhaled steroids inhalational treatments -Hyperlipidemia - Nicotine use extensive counseling regarding this was provided -Gastroesophageal reflux disease -Alcohol abuse: Counseling was provided patient doesn't have any withdrawals at this time patient is medically stable to discharge medication reconciliation upon discharge was reviewed.
--- NOTE | 2019-07-01 08:23 | IR ---
EXAMINATION TYPE: IR stent intravas non coronary DATE OF EXAM: 06/28/2019 COMPARISON: NONE HISTORY: Fluoroscopy time. Fluoroscopy was provided to the referring clinician.
== END 2019-06-29 14:00 | disposition home or self-care (01) | DRG 269 ==
LOC: 2ORMAIN 07:14 → 2SICU 12:33
PROVIDERS: ADMIT Surgery; ATTEND Surgery
PROC: B44 Imaging, Lower Arteries, Ultrasonography (ICD-10-PCS; 2019-06-28)
PROC: 04V03DZ Restriction of Abdominal Aorta with Intraluminal Device, Percutaneous Approach (ICD-10-PCS; principal; 2019-06-28 09:00)
PROC: B440ZZZ Ultrasonography of Abdominal Aorta (ICD-10-PCS; 2019-06-28 09:00)
DX: I71.03 Dissection of thoracoabdominal aorta (principal); T82.338A Leakage of other vascular grafts, initial encounter; E78.5 Hyperlipidemia, unspecified; F10.10 Alcohol abuse, uncomplicated; Z71.41 Alcohol abuse counseling and surveillance of alcoholic; Z71.6 Tobacco abuse counseling; F17.210 Nicotine dependence, cigarettes, uncomplicated; I10 Essential (primary) hypertension; J44.9 Chronic obstructive pulmonary disease, unspecified; K21.9 Gastro-esophageal reflux disease without esophagitis; Z79.51 Long term (current) use of inhaled steroids; Z79.82 Long term (current) use of aspirin; Z79.899 Other long term (current) drug therapy; Z82.49 Family history of ischemic heart disease and other diseases of the circulatory system; Z86.79 Personal history of other diseases of the circulatory system; T46.6X6A Underdosing of antihyperlipidemic and antiarteriosclerotic drugs, initial encounter; Z91.128 Patient's intentional underdosing of medication regimen for other reason; K74.60 Unspecified cirrhosis of liver; Z87.01 Personal history of pneumonia (recurrent); I25.2 Old myocardial infarction
CPT/HCPCS: 34705; 37252; 80048; 82565; 85025; 85027; 86850; 86900; 86901; 94640

== ENCOUNTER 2019-06-30 06:01 | Emergency (ER) | payer OTHER ==
[2019-06-30 06:09] VITALS: BP 145/84; PULSE 58; RESP 18; TEMP 97.3
--- NOTE | 2019-06-30 06:19 | ED ---
Recheck HPI - General Chief Complaint: Recheck/Abnormal Lab/Rx Stated Complaint: Post Op Rash Time Seen by Provider: 06/30/19 06:11 Source: patient, RN notes reviewed Mode of arrival: ambulatory Limitations: no limitations - History of Present Illness Initial Comments: 69-year-old male presented unresponsive chief complaint of wound recheck. Patient was discharged yesterday after an endovascular AAA repair. Patient states that he is doing well with he has mild discomfort in his groin. Patient states he was advised changes dressing today but he is worried as there is some discoloration. Patient denies any fevers chills dumping chest pain or shortness of breath. - Related Data Home Medications Medication Instructions Recorded Confirmed Albuterol Sulfate [Ventolin HFA] 1 - 2 puff INHALATION Q6H PRN 06/21/19 06/21/19 Aspirin 81 mg PO DAILY 06/21/19 06/28/19 Atorvastatin Calcium [Lipitor] 20 mg PO HS 06/21/19 06/28/19 Budesonide-Formot 160-4.5 Mcg 2 puff INHALATION RT-BID 06/21/19 06/28/19 [Symbicort 160-4.5 Mcg Inhaler (Bulk)] Ipratropium-Albuterol Nebulize 3 ml INHALATION Q6H PRN 06/21/19 06/21/19 [Duoneb 0.5 mg-3 mg/3 ml Soln] Omeprazole 20 mg PO QAM 06/21/19 06/28/19 Ranitidine HCl 150 mg PO HS 06/21/19 06/28/19 Previous Rx's Medication Instructions Recorded Thiamine [Vitamin B-1] 100 mg PO DAILY #30 tablet 06/29/19 Allergies Allergy/AdvReac Type Severity Reaction Status Date / Time tomato AdvReac acid reflux Verified 06/21/19 13:11 Review of Systems ROS Statement: Those systems with pertinent positive or pertinent negative responses have been documented in the HPI. ROS Other: All systems not noted in ROS Statement are negative. Past Medical History Past Medical History: COPD, GERD/Reflux, Pneumonia Additional Past Medical History / Comment(s): aortic aneurysm, dyslipidemia History of Any Multi-Drug Resistant Organisms: None Reported Past Surgical History: Appendectomy Additional Past Surgical History / Comment(s): AAA repair 06/28/19 iliac stent, aortic stent Past Anesthesia/Blood Transfusion Reactions: No Reported Reaction Past Psychological History: Anxiety, Depression Smoking Status: Current every day smoker Past Alcohol Use History: Heavy - Past Family History Mother Family Medical History: Liver Disease Additional Family Medical History / Comment(s): liver cirrhosis Brother(s) Family Medical History: Vascular Disorder Father Family Medical History: Myocardial Infarction ([place]) General Exam Limitations: no limitations General appearance: alert, in no apparent distress Head exam: Present: atraumatic, normocephalic, normal inspection Neck exam: Present: normal inspection. Absent: tenderness, meningismus, lymphadenopathy Respiratory exam: Present: normal lung sounds bilaterally. Absent: respiratory distress, wheezes, rales, rhonchi, stridor Cardiovascular Exam: Present: regular rate, normal rhythm, normal heart sounds. Absent: systolic murmur, diastolic murmur, rubs, gallop, clicks GI/Abdominal exam: Present: soft, normal bowel sounds. Absent: distended, tenderness, guarding, rebound, rigid Extremities exam: Present: other (Bilateral groin dressings are noted, they are removed there is mild ecchymosis no drainage or erythema minimally tender) Course Vital Signs 06/30/19 06:03 Temperature 97.3 F L Pulse Rate 58 L Respiratory 18 Rate Blood Pressure 145/84 O2 Sat by Pulse 96 Oximetry Medical Decision Making - Medical Decision Making Patient presented for concerns of rash after surgery, the area of rash is ecchymosis noted this is a normal finding. I did explain this to the patient patient was discharged in stable condition. Disposition Clinical Impression: Encounter for wound re-check, Postoperative ecchymosis Disposition: HOME SELF-CARE Condition: Stable Instructions (If sedation given, give patient instructions): Ecchymosis (ED) Additional Instructions: Please return to the Emergency Department if symptoms worsen or any other concerns. Is patient prescribed a controlled substance at d/c from ED?: No Referrals: [facility] [Primary Care Provider] - 1-2 days Time of Disposition: 06:19
== END 2019-06-30 06:36 | disposition home or self-care (01) ==
LOC: EC 06:01
DX: L76.22 Postprocedural hemorrhage of skin and subcutaneous tissue following other procedure (principal); Z48.00 Encounter for change or removal of nonsurgical wound dressing; J44.1 Chronic obstructive pulmonary disease with (acute) exacerbation; K21.9 Gastro-esophageal reflux disease without esophagitis; E78.5 Hyperlipidemia, unspecified; F17.200 Nicotine dependence, unspecified, uncomplicated; Z98.890 Other specified postprocedural states; Z79.51 Long term (current) use of inhaled steroids; Z79.82 Long term (current) use of aspirin; Z79.899 Other long term (current) drug therapy; Z91.018 Allergy to other foods; Z95.828 Presence of other vascular implants and grafts; Z86.79 Personal history of other diseases of the circulatory system
CPT/HCPCS: 99283

== ENCOUNTER → 2019-08-15 | Outpatient (CLI) | payer OTHER ==
[2019-08-15 13:40] LABS: African American GFR (CKD) >90 (>60 ml/min/1.73 sqM); Blood Urea Nitrogen 13 mg/dL (9-20); Non-African American GFR(CKD) >90 (>60 ml/min/1.73 sqM)
--- NOTE | 2019-08-15 15:32 | CT ---
EXAMINATION TYPE: CT angio abdomen pelvis DATE OF EXAM: 08/15/2019 COMPARISON: CT abdomen and pelvis March 09, 2019 and July 12, 2018. HISTORY: AAA with stent repair. Patient also complains of left upper quadrant pain from cough. CT DLP: 986.2 mGycm, Automated Exposure Control for Dose Reduction was Utilized. CONTRAST: CTA scan of the abdomen and pelvis is performed without oral and without and with IV Contrast, patien t injected with 100 mL of Isovue 370. Aneurysm protocol with 3-D reconstructed images created on an [employer] workstation and reviewed. FINDINGS: Vascular: Interval placement of aortobiiliac stent graft through AAA. Length of aneurysm roughly 8 cm similar to prior. LUNG BASES: Lung bases show occasional scattered blebs and mild areas of scarring. LIVER/GB: No significant abnormality is appreciated. PANCREAS: No significant abnormality is seen. SPLEEN: No significant abnormality is seen. ADRENALS: No significant abnormality is seen. KIDNEYS: There are simple appearing 2.4 cm thin-walled cyst right kidney midpole level posteriorly ax ial image 32 redemonstrated. Size of elem AAA up to 5.3 cm axial image 44 slightly larger from 5.1 to 5.2 cm prior study axial image 57. Postcontrast image shows shows successful enhancement of stent- graft without suspicious extraluminal enhancement. 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 BOWEL: No significant abnormality is seen. PROSTATE/SEMINAL VESICLES: Mildly enlarged prostate gland bulging on bladder base again seen. LYMPH NODES: No greater than 1cm abdominal or pelvic lymph nodes are appreciated. OSSEOUS STRUCTURES: Multilevel spurring in the visualized thoracic spine.. OTHER: Small umbilical hernia containing fat axial image 43 redemonstrated. IMPRESSION: New and patent aortobiiliac stent graft with fairly stable 5.3 cm AAA. No CTA evidence fo r endoleak.
== END | disposition home or self-care (01) ==
LOC: RADCTMAIN 12:56
PROVIDERS: ATTEND Surgery
DX: I71.4 Abdominal aortic aneurysm, without rupture (principal)
CPT/HCPCS: 82565; 84520; 36415; 74174; Q9967

== ENCOUNTER 2019-12-11 20:34 | Inpatient (IN) | payer OTHER ==
[2019-12-11] MEDS ORDERED: IPRATROPIUM-ALBUTEROL 3 ML NEB INHALATION STA (20:49)
[2019-12-11] MEDS ORDERED: methylPREDNISolone SOD SUCCI 125 MG/2 ML VIAL IV STA (20:49)
[2019-12-11] MEDS ORDERED: SODIUM CHLORIDE 0.9% 500 ML 500 ML IV STA (20:49)
[2019-12-11] MEDS ORDERED: ALBUTEROL NEB (CONC) 2.5 MG/0.5 ML INHALATION STA (20:50)
[2019-12-11 21:17] LABS: Basophils # (A) 0.1 k/uL (0-0.2); Basophils % (A) 1 %; Eosinophils # (A) 1.3 k/uL (0-0.7); Eosinophils % (A) 16 %; HCT 50.4 % (39.0-53.0); HGB 16.1 gm/dL (13.0-17.5); Lymphocytes # (A) 2.4 k/uL (1.0-4.8); Lymphocytes % (A) 29 %; MCH 31.5 pg (25.0-35.0); MCV 98.4 fL (80.0-100.0); Mean Platelet Volume 7.1; Monocytes # (A) 0.5 k/uL (0-1.0); Monocytes % (A) 5 %; Neutrophils % (A) 47 %; Platelet Count 209 k/uL (150-450); RBC 5.12 m/uL (4.30-5.90); RDW 13.5 % (11.5-15.5); WBC 8.5 k/uL (3.8-10.6)
[2019-12-11 21:21] LABS: Partial Thromboplastin Time 26.9 sec (22.0-30.0); Prothrombin Time 10.5 sec (9.0-12.0)
[2019-12-11 21:22] LABS: ALT 23 U/L (4-49); AST 28 U/L (17-59); African American GFR (CKD) >90 (>60 ml/min/1.73 sqM); Albumin 4.2 g/dL (3.5-5.0); Alkaline Phosphatase 99 U/L (38-126); Anion Gap 11 mmol/L; Blood Urea Nitrogen 10 mg/dL (9-20); Calcium 9.4 mg/dL (8.4-10.2); Carbon Dioxide 19 mmol/L (22-30); Chloride 107 mmol/L (98-107); Glucose 87 mg/dL (74-99); Magnesium 2.1 mg/dL (1.6-2.3); Non-African American GFR(CKD) >90 (>60 ml/min/1.73 sqM); Potassium 4.5 mmol/L (3.5-5.1); Sodium 137 mmol/L (137-145); Total Bilirubin 0.6 mg/dL (0.2-1.3); Total Protein 7.1 g/dL (6.3-8.2)
--- NOTE | 2019-12-11 21:26 | ED ---
SOB HPI - General Source: patient Mode of arrival: ambulatory Limitations: no limitations <Leisa Solis - Last Filed: 12/11/19 22:26> <Bart Shin - Last Filed: 12/11/19 22:31> - General Chief Complaint: Shortness of Breath Stated Complaint: SOB Time Seen by Provider: 12/11/19 20:42 - History of Present Illness Initial Comments: 77-year-old male patient presents to the emergency department today for evalu ation of shortness of breath and cough. Patient states that he has history of COPD as symptoms have been getting worse over the last week or so. Patient states he did have a similar episode last week that lasted about 3 days. States that he did see his primary doctor was given steroids. He states that he did complete the steroids and then started getting worse again today. He denies any fever or chills. States he is coughing up a small amount of sputum denies any hemoptysis. He denies any chest pain. Denies any dizziness or weakness. States symptoms worsen with activity. He does not wear oxygen at home. States he then 6 breathing treatments in the last 3 hours. Patient denies any recent rash, abdominal pain, nausea, vomiting, diarrhea, constipation, back pain, numbness, tingling, dizziness, weakness, hematuria, dysuria, urinary urgency, urinary frequency, headache, visual changes, or any other complaints. (Leisa Solis) - Related Data Home Medications Medication Instructions Recorded Confirmed Albuterol Sulfate [Ventolin HFA] 2 puff INHALATION RT-Q6H PRN 06/21/19 12/11/19 Budesonide-Formot 160-4.5 Mcg 2 puff INHALATION RT-BID 06/21/19 12/11/19 [Symbicort 160-4.5 Mcg Inhaler (Mhu)] Ipratropium-Albuterol Nebulize 3 ml INHALATION RT-QID 06/21/19 12/11/19 [Duoneb 0.5 mg-3 mg/3 ml Soln] Omeprazole 20 mg PO DAILY 06/21/19 12/11/19 Ammonium Lactate Cream [Lac-Hydrin 1 applic TOPICAL DAILY PRN 12/11/19 12/11/19 12% Cream] Aspirin EC [Ecotrin Low Dose] 81 mg PO DAILY 12/11/19 12/11/19 Atorvastatin [Lipitor] 40 mg PO HS 12/11/19 12/11/19 EPINEPHrine (Auto Inject) [Epipen] 0.3 mg IM ONCE PRN 12/11/19 12/11/19 Melatonin 3 mg PO HS 12/11/19 12/11/19 Nitroglycerin Sl Tabs [Nitrostat] 0.4 mg SUBLINGUAL Q5M PRN 12/11/19 12/11/19 Allergies Allergy/AdvReac Type Severity Reaction Status Date / Time bee venom protein (honey bee) Allergy Unknown Verified 12/11/19 22:24 bupropion [From Wellbutrin] Allergy Unknown Verified 12/11/19 22:24 simvastatin [From Zocor] Allergy Unknown Verified 12/11/19 22:24 Review of Systems ROS Other: All systems not noted in ROS Statement are negative. <Leisa Solis - Last Filed: 12/11/19 22:26> ROS Other: All systems not noted in ROS Statement are negative. <Bart Shin - Last Filed: 12/11/19 22:31> ROS Statement: Those systems with pertinent positive or pertinent negative responses have been documented in the HPI. Past Medical History Past Medical History: COPD, GERD/Reflux, Pneumonia Additional Past Medical History / Comment(s): aortic aneurysm, dyslipidemia History of Any Multi-Drug Resistant Organisms: None Reported Past Surgical History: Appendectomy Additional Past Surgical History / Comment(s): AAA repair 06/28/19 iliac stent, aortic stent Past Anesthesia/Blood Transfusion Reactions: No Reported Reaction Past Psychological History: Anxiety, Depression Smoking Status: Current every day smoker Past Alcohol Use History: Daily Past Drug Use History: None Reported - Past Family History Mother Family Medical History: Liver Disease Additional Family Medical History / Comment(s): liver cirrhosis Brother(s) Family Medical History: Vascular Disorder Father Family Medical History: Myocardial Infarction ([place]) <Leisa Solis - Last Filed: 12/11/19 22:26> General Exam Limitations: no limitations General appearance: alert, in no apparent distress, other (This is a well- developed, well-nourished elderly male patient in no acute distress. Vital signs upon presentation are temperature 97.6F, pulse 86, respirations 22, blood pressure 115/78, pulse ox 95% on room air.) Eye exam: Present: normal appearance, PERRL, EOMI. Absent: scleral icterus, conjunctival injection, periorbital swelling ENT exam: Present: normal exam, normal oropharynx, mucous membranes moist Respiratory exam: Present: respiratory distress (Mild), wheezes (Inspiratory and extremities noted in the posterior lung franklin), accessory muscle use (Abdominal), other (Able to do 3-5 word sentences only. Frequent cough noted.). Absent: normal lung sounds bilaterally, rales, rhonchi, stridor Cardiovascular Exam: Present: regular rate, normal rhythm, normal heart sounds. Absent: systolic murmur, diastolic murmur, rubs, gallop, clicks GI/Abdominal exam: Present: soft, normal bowel sounds. Absent: distended, tenderness, guarding, rebound, rigid Neurological exam: Present: alert, oriented X3, CN II-XII intact Psychiatric exam: Present: normal affect, normal mood Skin exam: Present: warm, dry, intact, normal color. Absent: rash <Leisa Solis - Last Filed: 12/11/19 22:26> Course <Bart Shin - Last Filed: 12/11/19 22:31> Vital Signs 12/11/19 12/11/19 12/11/19 20:36 21:16 21:22 Temperature 97.6 F Pulse Rate 86 86 88 Respiratory 22 Rate Blood Pressure 115/78 O2 Sat by Pulse 95 Oximetry 12/11/19 22:18 Temperature 97.4 F L Pulse Rate 71 Respiratory 19 Rate Blood Pressure 132/80 O2 Sat by Pulse 96 Oximetry - Reevaluation(s) Reevaluation #1: 12/11/19 22:30 TELEGRAPH OFFICE TELEPHONE CLERK supervision: I proceeded [id number] evaluation the patient did present with complaints of shortness of breath he did demonstrate diminished breath sounds with wheezing and exertional dyspnea. The presentation is consistent with COPD exacerbation the patient be admitted Dr. Sexton was contacted. I do agree with the assessment and plan. (Bart Shin) Medical Decision Making - Lab Data Result diagrams: 12/11/19 20:58 12/11/19 20:58 - EKG Data -: EKG Interpreted by Me - Radiology Data Radiology results: report reviewed, image reviewed <Leisa Solis - Last Filed: 12/11/19 22:26> - Lab Data Result diagrams: 12/11/19 20:58 12/11/19 20:58 <Bart Shin - Last Filed: 12/11/19 22:31> - Medical Decision Making 69-year-old male patient presents to the emergency department today for evaluation of shortness of breath, cough, sputum production. Patient states symptoms started about a week ago worsened today. States he did 6 breathing treatments and the 3 hours prior to arrival. Physical examination upon arrival did reveal inspiratory and expiratory wheezing in the posterior lung franklin. He was obviously short of breath with abdominal accessory muscle use and 3-5 word sentences. Chest x-ray showed no acute cardiopulmonary process. Labs reviewed and are relatively unremarkable. Patient did complete a course of steroids outpatient recently. We'll admit to the hospital for COPD exacerbation with fa iled outpatient treatment. He has no white blood cell count, no fever so antibiotics will not be started at this time. We'll consult pulmonology. (Leisa Solis) - Lab Data Lab Results 12/11/19 12/11/19 12/11/19 Range/Units 20:58 20:58 20:58 WBC 8.5 (3.8-10.6) k/uL RBC 5.12 (4.30-5.90) m/uL Hgb 16.1 (13.0-17.5) gm/dL Hct 50.4 (39.0-53.0) % MCV 98.4 (80.0-100.0) fL MCH 31.5 (25.0-35.0) pg MCHC 32.0 (31.0-37.0) g/dL RDW 13.5 (11.5-15.5) % Plt Count 209 (150-450) k/uL Neutrophils % 47 % Lymphocytes % 29 % Monocytes % 5 % Eosinophils % 16 % Basophils % 1 % Neutrophils # 4.0 (1.3-7.7) k/uL Lymphocytes # 2.4 (1.0-4.8) k/uL Monocytes # 0.5 (0-1.0) k/uL Eosinophils # 1.3 H (0-0.7) k/uL Basophils # 0.1 (0-0.2) k/uL PT 10.5 (9.0-12.0) sec INR 1.0 (<1.2) APTT 26.9 (22.0-30.0) sec Sodium 137 (137-145) mmol/L Potassium 4.5 (3.5-5.1) mmol/L Chloride 107 (98-107) mmol/L Carbon Dioxide 19 L (22-30) mmol/L Anion Gap 11 mmol/L BUN 10 (9-20) mg/dL Creatinine 0.71 (0.66-1.25) mg/dL Est GFR (CKD-EPI)AfAm >90 (>60 ml/min/1.73 sqM) Est GFR (CKD-EPI)NonAf >90 (>60 ml/min/1.73 sqM) Glucose 87 (74-99) mg/dL Plasma Lactic Acid Jae (0.7-2.0) mmol/L Calcium 9.4 (8.4-10.2) mg/dL Magnesium 2.1 (1.6-2.3) mg/dL Total Bilirubin 0.6 (0.2-1.3) mg/dL AST 28 (17-59) U/L ALT 23 (4-49) U/L Alkaline Phosphatase 99 (38-126) U/L Troponin I (0.000-0.034) ng/mL Total Protein 7.1 (6.3-8.2) g/dL Albumin 4.2 (3.5-5.0) g/dL 12/11/19 12/11/19 Range/Units 20:58 20:58 WBC (3.8-10.6) k/uL RBC (4.30-5.90) m/uL Hgb (13.0-17.5) gm/dL Hct (39.0-53.0) % MCV (80.0-100.0) fL MCH (25.0-35.0) pg MCHC (31.0-37.0) g/dL RDW (11.5-15.5) % Plt Count (150-450) k/uL Neutrophils % % Lymphocytes % % Monocytes % % Eosinophils % % Basophils % % Neutrophils # (1.3-7.7) k/uL Lymphocytes # (1.0-4.8) k/uL Monocytes # (0-1.0) k/uL Eosinophils # (0-0.7) k/uL Basophils # (0-0.2) k/uL PT (9.0-12.0) sec INR (<1.2) APTT (22.0-30.0) sec Sodium (137-145) mmol/L Potassium (3.5-5.1) mmol/L Chloride (98-107) mmol/L Carbon Dioxide (22-30) mmol/L Anion Gap mmol/L BUN (9-20) mg/dL Creatinine (0.66-1.25) mg/dL Est GFR (CKD-EPI)AfAm (>60 ml/min/1.73 sqM) Est GFR (CKD-EPI)NonAf (>60 ml/min/1.73 sqM) Glucose (74-99) mg/dL Plasma Lactic Acid Jae 1.0 (0.7-2.0) mmol/L Calcium (8.4-10.2) mg/dL Magnesium (1.6-2.3) mg/dL Total Bilirubin (0.2-1.3) mg/dL AST (17-59) U/L ALT (4-49) U/L Alkaline Phosphatase (38-126) U/L Troponin I <0.012 (0.000-0.034) ng/mL Total Protein (6.3-8.2) g/dL Albumin (3.5-5.0) g/dL - EKG Data EKG Comments: EKG obtained at 2109 shows normal sinus rhythm with a ventricular rate of 82, ND interval 182, QRS duration 86, QT 394, QTC 460. No evidence of ST elevation or depression. (Leisa Solis) - Radiology Data One view x-ray of the chest is obtained. Report was reviewed in its entirety. Impression by Dr. Ellis shows no active cardiopulmonary disease. Normal heart. No change. (Leisa Solis) Disposition Decision to Admit Reason: Admit from EC Decision Date: 12/11/19 Decision Time: 22:14 <Leisa Solis - Last Filed: 12/11/19 22:26> <Bart Shin - Last Filed: 12/11/19 22:31> Clinical Impression: COPD exacerbation Disposition: ADMITTED IP TO THIS [facility] Condition: Serious Referrals: [facility],Clinic [Primary Care Provider] - 1-2 days
--- NOTE | 2019-12-11 21:52 | XR ---
EXAMINATION TYPE: XR chest 1V portable DATE OF EXAM: 12/11/2019 COMPARISON: 03/14/2015 HISTORY: Short of breath. Cough. TECHNIQUE: Single view FINDINGS: Heart is normal. Lungs are clear of infiltrate. Costophrenic angles are clear. There are ch est leads. Bony thorax is intact. IMPRESSION: No active cardiopulmonary disease. Normal heart. No change.
[2019-12-11] MEDS ORDERED: IPRATROPIUM-ALBUTEROL 3 ML NEB INHALATION PRN (22:12)
[2019-12-12] MEDS: methylPREDNISolone SOD SUCCI 125 MG/2 ML VIAL IV SCH ×3 (00:06→12:47)
[2019-12-12] MEDS ORDERED: EPINEPHrine 1 MG/ML 1 ML AMP IM PRN (06:02)
[2019-12-12] MEDS: IPRATROPIUM-ALBUTEROL 3 ML NEB INHALATION SCH ×3 (08:21→15:49)
[2019-12-12] MEDS ORDERED: PANTOPRAZOLE 40 MG TABLET PO SCH (09:00)
[2019-12-12] MEDS ORDERED: ASPIRIN 81 MG PO SCH (09:00)
[2019-12-12] MEDS ORDERED: AMMONIUM LACTATE 12% CREAM 140 GM TUBE TOPICAL PRN (09:00)
[2019-12-12] MEDS ORDERED: NICOTINE 21MG/24HR PATCH TRANSDERM SCH (09:00)
[2019-12-12] MEDS ORDERED: DOXYCYCLINE 100 MG CAP PO SCH (12:15)
[2019-12-12] MEDS ORDERED: predniSONE 20 MG TAB PO SCH (12:15)
--- NOTE | 2019-12-12 14:22 | P.CNPUL ---
History of Present Illness Consult date: 12/12/19 Requesting physician: Sophia Sexton Reason for consult: dyspnea Chief complaint: Shortness of breath, cough, congestion History of present illness: This is a very pleasant 69-year-old gentleman who follows at the [facility] for his primary care needs. He has a history of chronic obstructive pulmonary disease, chronic tobacco dependence, hyperlipidemia, gastroesophageal reflux disease, abdominal aortic aneurysm status post repair with aortic stent, iliac stent in June 2019, anxiety/depression, daily alcohol use. He presented here to the emergency room yesterday with complaints of increasing shortness of breath, cough and congestion. He had been having symptoms that have been worsening over the past week. He was given steroids without significant improvement. He had been taking home breathing treatments without significant improvement. He is seen today in consultation on the regular medical floor. He is currently sitting up in a chair at the bedside. Awake and alert in no acute distress. He is breathing quite a bit better today compared to yesterday. He remains afebrile. Maintaining O2 saturations in the mid 90s on 2 L/m per nasal cannula. Chest x-ray revealed no acute pulmonary process. White count 8.5. Hemoglobin 16.1. Sodium 137. Potassium will 0.5. Bicarb 19. Creatinine 0.71. Troponin 0.012. Lactic acid 1.0. He had been initiated on DuoNeb inhalations, Symbicort, doxycycline, prednisone. Review of Systems REVIEW OF SYSTEMS: CONSTITUTIONAL: Denies any recent significant weight loss or weight gain. EYES: Denies change in vision. EARS, NOSE, MOUTH, THROAT: Denies headaches, denies sore throat. CARDIOVASCULAR: Denies chest pain, palpitations or syncopal episodes. RESPIRATORY: Positive for shortness of breath, cough, congestion no hemoptysis. GASTROINTESTINAL: Denies change in appetite, denies abdominal pain GENITOURINARY: Denies hematuria, denies infections. MUSKULOSKELETAL: Denies pain, denies swelling. INTEGUMENTARY: Denies rash, denies eczema. NEUROLOGICAL: Denies recent memory loss, no recent seizure activity. PSYCHIATRIC: Denies anxiety, denies depression. HEMATOLOGIC/LYMPHATIC: Denies anemia, denies enlarged lymph nodes. Past Medical History Past Medical History: COPD, GERD/Reflux, Pneumonia Additional Past Medical History / Comment(s): aortic aneurysm, dyslipidemia History of Any Multi-Drug Resistant Organisms: None Reported Past Surgical History: Appendectomy Additional Past Surgical History / Comment(s): AAA repair 06/28/19 iliac stent, aortic stent Past Anesthesia/Blood Transfusion Reactions: No Reported Reaction Past Psychological History: Anxiety, Depression Smoking Status: Current every day smoker Past Alcohol Use History: Daily Additional Past Alcohol Use History / Comment(s): drinks 4 bottles a beer per night,started smoking at age 15<1ppd Past Drug Use History: None Reported Additional Drug Use History / Comment(s): uses marijuana - Past Family History Mother Family Medical History: Liver Disease Additional Family Medical History / Comment(s): liver cirrhosis Brother(s) Family Medical History: Vascular Disorder Father Family Medical History: Myocardial Infarction ([place]) Medications and Allergies Home Medications Medication Instructions Recorded Confirmed Type Albuterol Sulfate [Ventolin HFA] 2 puff INHALATION RT-Q6H PRN 06/21/19 12/11/19 History Budesonide-Formot 160-4.5 Mcg 2 puff INHALATION RT-BID 06/21/19 12/11/19 History [Symbicort 160-4.5 Mcg Inhaler (Mhu)] Ipratropium-Albuterol Nebulize 3 ml INHALATION RT-QID 06/21/19 12/11/19 History [Duoneb 0.5 mg-3 mg/3 ml Soln] Omeprazole 20 mg PO DAILY 06/21/19 12/11/19 History Ammonium Lactate Cream [Lac-Hydrin 1 applic TOPICAL DAILY PRN 12/11/19 12/11/19 History 12% Cream] Aspirin EC [Ecotrin Low Dose] 81 mg PO DAILY 12/11/19 12/11/19 History Atorvastatin [Lipitor] 40 mg PO HS 12/11/19 12/11/19 History EPINEPHrine (Auto Inject) [Epipen] 0.3 mg IM ONCE PRN 12/11/19 12/11/19 History Melatonin 3 mg PO HS 12/11/19 12/11/19 History Nitroglycerin Sl Tabs [Nitrostat] 0.4 mg SUBLINGUAL Q5M PRN 12/11/19 12/11/19 History Allergies Allergy/AdvReac Type Severity Reaction Status Date / Time bee venom protein (honey bee) Allergy Unknown Verified 12/11/19 22:24 bupropion [From Wellbutrin] Allergy Unknown Verified 12/11/19 22:24 simvastatin [From Zocor] Allergy Unknown Verified 12/11/19 22:24 Physical Exam Vitals: Vital Signs Temp Pulse Pulse Resp BP BP Pulse Ox 12/12/19 11:31 88 12/12/19 11:26 80 12/12/19 08:29 84 12/12/19 08:23 80 12/12/19 07:00 97.7 F 83 15 114/65 96 12/12/19 06:00 88 12/12/19 05:43 84 12/12/19 01:20 97.5 F L 74 131/70 93 L 12/12/19 00:42 97.7 F 81 20 134/80 96 12/11/19 22:18 97.4 F L 71 19 132/80 96 12/11/19 21:22 88 12/11/19 21:16 86 12/11/19 20:36 97.6 F 86 22 115/78 95 Intake and Output 12/11/19 12/12/19 12/12/19 22:59 06:59 14:59 Intake Total 500 Balance 500 Intake: Oral 500 Other: Voiding Method Toilet Urinal # Voids 1 Weight 77.111 kg 77.111 kg GENERAL EXAM: Alert, active, pleasant 69-year-old gentleman, on 2 L nasal cannula comfortable in no apparent distress. HEAD: Normocephalic. EYES: Normal reaction of pupils, equal size. NOSE: Clear with pink turbinates. THROAT: No erythema or exudates. NECK: No masses, no JVD. CHEST: No chest wall deformity. LUNGS: Equal air entry with no crackles, wheeze, rhonchi or dullness. Diminish ed. CVS: S1 and S2 normal with no audible murmur, regular rhythm. ABDOMEN: No hepatosplenomegaly, normal bowel sounds, no guarding or rigidity. SPINE: No scoliosis or deformity SKIN: No rashes CENTRAL NERVOUS SYSTEM: No focal deficits, tone is normal in all 4 extremities. EXTREMITIES: There is no peripheral edema. No clubbing, no cyanosis. Peripheral pulses are intact. Results - Laboratory Findings CBC and BMP: 12/11/19 20:58 12/11/19 20:58 PT/INR, D-dimer PT 10.5 sec (9.0-12.0) 12/11/19 20:58 INR 1.0 (<1.2) 12/11/19 20:58 Abnormal lab findings: Abnormal Labs 12/11/19 12/11/19 20:58 20:58 Eosinophils # 1.3 H Carbon Dioxide 19 L - Diagnostic Findings Chest x-ray: image reviewed (No acute pulmonary process) Assessment and Plan Assessment: 1 Acute exacerbation of chronic obstructive pulmonary disease 2 Chronic and ongoing tobacco dependence 3 Daily alcohol use 4 Hyperlipidemia 5 Gastroesophageal reflux disease 6 History of abdominal aortic aneurysm status post repair/stenting in June 2019 Plan The patient was seen and evaluated by Dr. Pollock Chest x-ray and labs reviewed The patient is stable and requesting to go home Titrate down the FiO2, assure no need for home oxygen Complete a course of empiric antibiotics Continue Symbicort and DuoNeb inhalations Complete a prednisone burst and taper starting at 40 mg for 4 days Follow-up in our office in 1-2 weeks' time I, the cosigning physician, performed a history & physical examination of the patient. Lungs sounds are clear, diminished. Maintaining good O2 saturations in the 90s on 2 L/m nasal cannula. I discussed the assessment and plan of care with my nurse practitioner, Vivian Walton. I attest to the above consultation as dictated by her. Time with Patient: Greater than 30
[2019-12-12 14:24] VITALS: BP 133/72; RESP 17; TEMP 97.9
[2019-12-12] MEDS ORDERED: HEPARIN SODIUM,PORCINE 5,000 UNIT/ML 1 ML VIAL SQ SCH (16:00)
[2019-12-12 16:01] VITALS: PULSE 84
[2019-12-12] MEDS ORDERED: SYMBICORT 160-4.5 MCG INHALER INHALATION SCH (20:00)
[2019-12-12] MEDS ORDERED: ATORVASTATIN 40 MG TAB PO SCH (21:00)
== END 2019-12-12 16:48 | disposition home or self-care (01) | DRG 192 ==
LOC: EC 20:34 → 4SSUR 22:30
PROVIDERS: ADMIT Internal Medicine; ATTEND Internal Medicine
DX: J44.1 Chronic obstructive pulmonary disease with (acute) exacerbation (principal); Z20.828 Contact with and (suspected) exposure to other viral communicable diseases; K21.9 Gastro-esophageal reflux disease without esophagitis; E78.5 Hyperlipidemia, unspecified; F17.210 Nicotine dependence, cigarettes, uncomplicated; Z71.6 Tobacco abuse counseling; Z79.82 Long term (current) use of aspirin; Z79.51 Long term (current) use of inhaled steroids; Z79.899 Other long term (current) drug therapy; Z95.828 Presence of other vascular implants and grafts; Z86.79 Personal history of other diseases of the circulatory system; Z87.01 Personal history of pneumonia (recurrent); Z90.49 Acquired absence of other specified parts of digestive tract; Z98.890 Other specified postprocedural states; Z86.59 Personal history of other mental and behavioral disorders; Z88.8 Allergy status to other drugs, medicaments and biological substances; Z91.030 Bee allergy status; Z82.49 Family history of ischemic heart disease and other diseases of the circulatory system; Z83.79 Family history of other diseases of the digestive system
CPT/HCPCS: 36415; 71045; 80053; 83605; 83735; 84484; 85025; 85610; 85730; 87635; 93005; 94640; 96361; 96374; 96376; 99285

== ENCOUNTER 2020-02-09 11:57 | Inpatient (IN) | payer OTHER ==
[2020-02-09] MEDS ORDERED: IPRATROPIUM 0.5 MG/2.5 ML NEBU INHALATION STA (12:13)
[2020-02-09] MEDS ORDERED: ALBUTEROL NEBULIZED 2.5 MG/3 ML INHALATION STA (12:13)
[2020-02-09] MEDS ORDERED: methylPREDNISolone SOD SUCCI 125 MG/2 ML VIAL IV STA (12:13)
[2020-02-09 12:46] LABS: Basophils # (A) 0.1 k/uL (0-0.2); Basophils % (A) 1 %; Eosinophils # (A) 1.1 k/uL (0-0.7); Eosinophils % (A) 14 %; HCT 47.1 % (39.0-53.0); HGB 15.5 gm/dL (13.0-17.5); Lymphocytes # (A) 1.6 k/uL (1.0-4.8); Lymphocytes % (A) 20 %; MCH 32.3 pg (25.0-35.0); MCHC 32.9 g/dL (31.0-37.0); MCV 98.3 fL (80.0-100.0); Monocytes # (A) 0.5 k/uL (0-1.0); Monocytes % (A) 7 %; Neutrophils # (A) 4.2 k/uL (1.3-7.7); Neutrophils % (A) 55 %; Platelet Count 205 k/uL (150-450); RBC 4.79 m/uL (4.30-5.90); RDW 13.1 % (11.5-15.5); WBC 7.8 k/uL (3.8-10.6)
--- NOTE | 2020-02-09 12:54 | ED ---
General Adult HPI - General Chief complaint: Shortness of Breath Stated complaint: LIAT Time Seen by Provider: 02/09/20 12:00 Source: patient, EMS, RN notes reviewed, old records reviewed Mode of arrival: EMS Limitations: no limitations - History of Present Illness Initial comments: This is a 69-year-old male who presents to the emergency room with a history of COPD. Patient states he has had a chronic cough lately he denies any fever or chills.. Patient states she's taken 11 breathing treatments and none of which have helped him more than a half an hour. Patient denies chest pain or palpitations. Patient denies any abdominal pain. Patient denies any lightheadedness or dizziness. Patient denies headache patient denies numbness weakness. Patient denies any increased swelling to the legs or calf tenderness. - Related Data Home Medications Medication Instructions Recorded Confirmed Albuterol Sulfate [Ventolin HFA] 2 puff INHALATION RT-Q6H PRN 06/21/19 12/11/19 Budesonide-Formot 160-4.5 Mcg 2 puff INHALATION RT-BID 06/21/19 12/11/19 [Symbicort 160-4.5 Mcg Inhaler (Mhu)] Ipratropium-Albuterol Nebulize 3 ml INHALATION RT-QID 06/21/19 12/11/19 [Duoneb 0.5 mg-3 mg/3 ml Soln] Omeprazole 20 mg PO DAILY 06/21/19 12/11/19 Ammonium Lactate Cream [Lac-Hydrin 1 applic TOPICAL DAILY PRN 12/11/19 12/11/19 12% Cream] Aspirin EC [Ecotrin Low Dose] 81 mg PO DAILY 12/11/19 12/11/19 Atorvastatin [Lipitor] 40 mg PO HS 12/11/19 12/11/19 EPINEPHrine (Auto Inject) [Epipen] 0.3 mg IM ONCE PRN 12/11/19 12/11/19 Melatonin 3 mg PO HS 12/11/19 12/11/19 Nitroglycerin Sl Tabs [Nitrostat] 0.4 mg SUBLINGUAL Q5M PRN 12/11/19 12/11/19 Previous Rx's Medication Instructions Recorded Doxycycline [Vibramycin] 100 mg PO BID 5 Days #10 cap 12/12/19 predniSONE See Taper PO DIRECTED #30 tab 12/12/19 Allergies Allergy/AdvReac Type Severity Reaction Status Date / Time bee venom protein (honey bee) Allergy Unknown Verified 02/09/20 12:04 bupropion [From Wellbutrin] Allergy Unknown Verified 02/09/20 12:04 simvastatin [From Zocor] Allergy Unknown Verified 02/09/20 12:04 Review of Systems ROS Statement: Those systems with pertinent positive or pertinent negative responses have been documented in the HPI. ROS Other: All systems not noted in ROS Statement are negative. Past Medical History Past Medical History: COPD, GERD/Reflux, Pneumonia Additional Past Medical History / Comment(s): aortic aneurysm, dyslipidemia History of Any Multi-Drug Resistant Organisms: None Reported Past Surgical History: Appendectomy Additional Past Surgical History / Comment(s): AAA repair 06/28/19 iliac stent, aortic stent Past Anesthesia/Blood Transfusion Reactions: No Reported Reaction Past Psychological History: Anxiety, Depression Smoking Status: Current every day smoker Past Alcohol Use History: Daily Past Drug Use History: None Reported - Past Family History Mother Family Medical History: Liver Disease Additional Family Medical History / Comment(s): liver cirrhosis Brother(s) Family Medical History: Vascular Disorder Father Family Medical History: Myocardial Infarction ([place]) General Exam - General Exam Comments Initial Comments: GENERAL: Patient is well-developed and well-nourished. Patient is nontoxic and well- hydrated and is in moderate distress. ENT: Neck is soft and supple. No significant lymphadenopathy is noted. Oropharynx is clear. Moist mucous membranes. Neck has full range of motion without eliciting any pain. EYES: The sclera were anicteric and conjunctiva were pink and moist. Extraocular movements were intact and pupils were equal round and reactive to light. Eyelids were unremarkable. PULMONARY: Patient has expiratory wheezing diffusely and teeth decreased breath sounds. CARDIOVASCULAR: There is a regular rate and rhythm without any murmurs gallops or rubs. ABDOMEN: Soft and nontender with normal bowel sounds. No palpable organomegaly was noted. There is no palpable pulsatile mass. SKIN: Skin is clear with no lesions or rashes and otherwise unremarkable. NEUROLOGIC: Patient is alert and oriented x3. Cranial nerves II through XII are grossly intact. Motor and sensory are also intact. Normal speech, volume and content. Symmetrical smile. MUSCULOSKELETAL: Normal extremities with adequate strength and full range of motion. 1+ edema bilaterally LYMPHATICS: No significant lymphadenopathy is noted PSYCHIATRIC: Normal psychiatric evaluation. Limitations: no limitations Course Vital Signs 02/09/20 02/09/20 02/09/20 12:02 12:36 12:52 Temperature 97.5 F L Pulse Rate 85 87 83 Respiratory 28 H Rate Blood Pressure 139/81 O2 Sat by Pulse 98 Oximetry 02/09/20 02/09/20 13:14 14:00 Temperature Pulse Rate 80 76 Respiratory 20 22 Rate Blood Pressure 130/102 144/96 O2 Sat by Pulse 99 99 Oximetry Medical Decision Making - Medical Decision Making EKG shows normal sinus rhythm at 83 bpm [place] interval 276 QRS is 86 QT interval 368 QTC is 432. Patient is patient has Q waves in II, III, and F aVF. Chest x-ray shows no acute normalities. Patient was placed on BiPAP and when I went back into the room to reevaluate the patient he was doing considerably better. Patient received a breathing treatment of albuterol Atrovent here he did not get any more because he didn't let him at home he also received steroids while he was in the emergency department. I spoke with Dr. Polk he agreed to admit the patient admitted the patient I wrote admitting orders. - Lab Data Result diagrams: 02/09/20 12:24 02/09/20 12:24 Lab Results 02/09/20 02/09/20 02/09/20 Range/Units 12:24 12:24 12:24 WBC 7.8 (3.8-10.6) k/uL RBC 4.79 (4.30-5.90) m/uL Hgb 15.5 (13.0-17.5) gm/dL Hct 47.1 (39.0-53.0) % MCV 98.3 (80.0-100.0) fL MCH 32.3 (25.0-35.0) pg MCHC 32.9 (31.0-37.0) g/dL RDW 13.1 (11.5-15.5) % Plt Count 205 (150-450) k/uL Neutrophils % 55 % Lymphocytes % 20 % Monocytes % 7 % Eosinophils % 14 % Basophils % 1 % Neutrophils # 4.2 (1.3-7.7) k/uL Lymphocytes # 1.6 (1.0-4.8) k/uL Monocytes # 0.5 (0-1.0) k/uL Eosinophils # 1.1 H (0-0.7) k/uL Basophils # 0.1 (0-0.2) k/uL PT 10.1 (9.0-12.0) sec INR 1.0 (<1.2) APTT 27.2 (22.0-30.0) sec Sodium 134 L (137-145) mmol/L Potassium 4.6 (3.5-5.1) mmol/L Chloride 104 (98-107) mmol/L Carbon Dioxide 23 (22-30) mmol/L Anion Gap 7 mmol/L BUN 7 L (9-20) mg/dL Creatinine 0.52 L (0.66-1.25) mg/dL Est GFR (CKD-EPI)AfAm >90 (>60 ml/min/1.73 sqM) Est GFR (CKD-EPI)NonAf >90 (>60 ml/min/1.73 sqM) Glucose 113 H (74-99) mg/dL Plasma Lactic Acid Jae (0.7-2.0) mmol/L Calcium 9.2 (8.4-10.2) mg/dL Magnesium 2.1 (1.6-2.3) mg/dL Total Bilirubin 0.5 (0.2-1.3) mg/dL AST 23 (17-59) U/L ALT 18 (4-49) U/L Alkaline Phosphatase 75 (38-126) U/L Troponin I (0.000-0.034) ng/mL NT-Pro-B Natriuret Pep pg/mL Total Protein 6.3 (6.3-8.2) g/dL Albumin 4.0 (3.5-5.0) g/dL 02/09/20 02/09/20 02/09/20 Range/Units 12:24 12:24 12:24 WBC (3.8-10.6) k/uL RBC (4.30-5.90) m/uL Hgb (13.0-17.5) gm/dL Hct (39.0-53.0) % MCV (80.0-100.0) fL MCH (25.0-35.0) pg MCHC (31.0-37.0) g/dL RDW (11.5-15.5) % Plt Count (150-450) k/uL Neutrophils % % Lymphocytes % % Monocytes % % Eosinophils % % Basophils % % Neutrophils # (1.3-7.7) k/uL Lymphocytes # (1.0-4.8) k/uL Monocytes # (0-1.0) k/uL Eosinophils # (0-0.7) k/uL Basophils # (0-0.2) k/uL PT (9.0-12.0) sec INR (<1.2) APTT (22.0-30.0) sec Sodium (137-145) mmol/L Potassium (3.5-5.1) mmol/L Chloride (98-107) mmol/L Carbon Dioxide (22-30) mmol/L Anion Gap mmol/L BUN (9-20) mg/dL Creatinine (0.66-1.25) mg/dL Est GFR (CKD-EPI)AfAm (>60 ml/min/1.73 sqM) Est GFR (CKD-EPI)NonAf (>60 ml/min/1.73 sqM) Glucose (74-99) mg/dL Plasma Lactic Acid Jae 1.3 (0.7-2.0) mmol/L Calcium (8.4-10.2) mg/dL Magnesium (1.6-2.3) mg/dL Total Bilirubin (0.2-1.3) mg/dL AST (17-59) U/L ALT (4-49) U/L Alkaline Phosphatase (38-126) U/L Troponin I <0.012 (0.000-0.034) ng/mL NT-Pro-B Natriuret Pep 55 pg/mL Total Protein (6.3-8.2) g/dL Albumin (3.5-5.0) g/dL Critical Care Time Critical Care Time: Yes Total Critical Care Time: 35 Disposition Clinical Impression: Acute exacerbation of chronic obstructive pulmonary disease (COPD) Disposition: ADMITTED IP TO THIS [facility] Time of Disposition: 14:10
[2020-02-09 12:56] LABS: ALT 18 U/L (4-49); AST 23 U/L (17-59); African American GFR (CKD) >90 (>60 ml/min/1.73 sqM); Alkaline Phosphatase 75 U/L (38-126); Anion Gap 7 mmol/L; Blood Urea Nitrogen 7 mg/dL (9-20); Calcium 9.2 mg/dL (8.4-10.2); Carbon Dioxide 23 mmol/L (22-30); Chloride 104 mmol/L (98-107); Glucose 113 mg/dL (74-99); Magnesium 2.1 mg/dL (1.6-2.3); Non-African American GFR(CKD) >90 (>60 ml/min/1.73 sqM); Potassium 4.6 mmol/L (3.5-5.1); Sodium 134 mmol/L (137-145); Total Bilirubin 0.5 mg/dL (0.2-1.3); Total Protein 6.3 g/dL (6.3-8.2)
--- NOTE | 2020-02-09 13:12 | XR ---
EXAMINATION TYPE: XR chest 1V portable DATE OF EXAM: 02/09/2020 COMPARISON: Prior chest x-ray 12/11/2019 HISTORY: Shortness of breath TECHNIQUE: Single frontal view of the chest is obtained. FINDINGS: Prominent lung lines are consistent with underlying COPD. There are overlying artifacts. T here is no focal air space opacity, pleural effusion, or pneumothorax seen. The cardiac silhouette s ize is within normal limits. The osseous structures are intact. IMPRESSION: No acute process.
[2020-02-09 13:17] LABS: Partial Thromboplastin Time 27.2 sec (22.0-30.0); Prothrombin Time 10.1 sec (9.0-12.0)
[2020-02-09] MEDS: IPRATROPIUM-ALBUTEROL 3 ML NEB INHALATION SCH ×2 (15:04→19:05)
[2020-02-09] MEDS: methylPREDNISolone SOD SUCCI 125 MG/2 ML VIAL IV SCH (18:44)
[2020-02-09] MEDS: AZITHROMYCIN 500 MG TAB PO SCH (18:44)
[2020-02-09] MEDS: NICOTINE 14MG/24HR PATCH TRANSDERM SCH (18:49)
[2020-02-09] MEDS: FORMOTEROL FUMARATE 20 MCG/2 ML NEBU INHALATION SCH (19:04)
[2020-02-09] MEDS: BUDESONIDE 1 MG/2 ML NEBU INHALATION SCH (19:05)
[2020-02-09 20:21] LABS: Glucose,Whole Blood 247 mg/dL (75-99)
[2020-02-09] MEDS: INSULIN ASPART (NovoLOG) 100 UNIT/ML VIAL SQ SCH (20:35)
--- NOTE | 2020-02-09 23:41 | P.HPIM ---
History of Present Illness H&P Date: 02/09/20 Chief Complaint: LIAT Patient is a 69-year-old male with a known history of COPD, hyperlipidemia, AAA repair on 06/28/19, iliac stent aortic stent, anxiety/depression currently everyday smoker and daily alcohol use came to ER with complaints of worsening shortness of breath Since yesterday. Patient had nebulizer at home and he has taken 11 breathing treatments without much improvement. Patient presents to ER with worsening shortness of breath. Denied any chest pain. No palpitations. Denied any fever or chills. No headache or dizziness or lightheadedness. Denied any leg swelling or calf tenderness. Patient was placed on BiPAP in the ER. Patient was tachypneic with respiratory 28 and 98% on 100% nonrebreather on admission. Patient has been afebrile. Laboratory data showed WBC 7.8, hemoglobin 15.5 and platelets 205 Is noticed low 1.1 Sodium 134, potassium 4.6, BUN 7 and creatinine 0.52 proBNP 55 Troponin I 0.012 Liver enzymes are not elevated Chest x-ray showed no acute process EKG showed normal sinus rhythm. Review of Systems Constitutional: Patient denies any fever or chills . No generalized weakness or weight loss. Abdomen: Patient denied nausea vomiting and diarrhea and abdominal pain. Cardiovascular: Patient denies any chest pain or short of breath no palpitations. Respiratory: Patient does have cough without sputum production and shortness of breath Neurologic: Patient denied any numbness or tingling headache. Musculoskeletal: Patient denies any complaints of joint swelling or deformity. Skin: Negative Psychiatric: Negative Endocrine: No heat or cold intolerance. No recent weight gain. Genitourinary: No dysuria or hematuria. All other 14 point ROS negative except the above Past Medical History Past Medical History: COPD, GERD/Reflux, Pneumonia Additional Past Medical History / Comment(s): aortic aneurysm, dyslipidemia History of Any Multi-Drug Resistant Organisms: None Reported Past Surgical History: Appendectomy Additional Past Surgical History / Comment(s): AAA repair 06/28/19 iliac stent, aortic stent Past Anesthesia/Blood Transfusion Reactions: No Reported Reaction Past Psychological History: Anxiety, Depression Smoking Status: Current every day smoker Past Alcohol Use History: Daily Past Drug Use History: None Reported - Past Family History Mother Family Medical History: Liver Disease Additional Family Medical History / Comment(s): liver cirrhosis Brother(s) Family Medical History: Vascular Disorder Father Family Medical History: Myocardial Infarction ([place]) Medications and Allergies Home Medications Medication Instructions Recorded Confirmed Type Albuterol Sulfate [Ventolin HFA] 2 puff INHALATION RT-QID PRN 06/21/19 02/09/20 History Budesonide-Formot 160-4.5 Mcg 2 puff INHALATION RT-BID 06/21/19 02/09/20 History [Symbicort 160-4.5 Mcg Inhaler (Mhu)] Ipratropium-Albuterol Nebulize 3 ml INHALATION RT-QID 06/21/19 02/09/20 History [Duoneb 0.5 mg-3 mg/3 ml Soln] Omeprazole 20 mg PO DAILY 06/21/19 02/09/20 History Aspirin EC [Ecotrin Low Dose] 81 mg PO DAILY 12/11/19 02/09/20 History Atorvastatin [Lipitor] 40 mg PO HS 12/11/19 02/09/20 History EPINEPHrine (Auto Inject) [Epipen] 0.3 mg IM ONCE PRN 12/11/19 02/09/20 History Melatonin 3 mg PO HS 12/11/19 02/09/20 History Nitroglycerin Sl Tabs [Nitrostat] 0.4 mg SUBLINGUAL Q5M PRN 12/11/19 02/09/20 History Allergies Allergy/AdvReac Type Severity Reaction Status Date / Time bee venom protein (honey bee) Allergy Unknown Verified 02/09/20 15:56 bupropion [From Wellbutrin] Allergy Unknown Verified 02/09/20 15:56 simvastatin [From Zocor] Allergy Unknown Verified 02/09/20 15:56 Physical Exam Vitals: Vital Signs Temp Pulse Resp BP Pulse Ox 02/09/20 15:14 71 20 02/09/20 15:06 77 20 02/09/20 15:00 74 20 143/86 98 02/09/20 14:00 76 22 144/96 99 02/09/20 13:14 80 20 130/102 99 02/09/20 12:52 83 02/09/20 12:36 87 02/09/20 12:02 97.5 F L 85 28 H 139/81 98 Intake and Output 02/09/20 02/09/20 02/09/20 06:59 14:59 22:59 Other: Weight 74.843 kg PHYSICAL EXAMINATION: Patient is lying in the bed comfortably, no acute distress, awake alert and oriented.. HEENT: Normocephalic. Neck is supple. Pupils reactive. Nostrils clear. Oral cavity is moist. Ears reveal no drainage. Neck reveals no JVD, carotid bruits, or thyromegaly. CHEST EXAMINATION: Trachea is central. Symmetrical expansion. Bilateral diminished air entry and scattered rhonchi. Minimal wheezing. CARDIAC: Normal S1, S2 with no gallops. No murmurs ABDOMEN: Soft. Bowel sounds normal. No organomegaly. No abdominal bruits. Extremities: reveal no edema. No clubbing or cyanosis Neurologically awake, alert, oriented x3 with well-coordinated movements. No focal deficits noted Skin: No rash or skin lesions. Psychiatric: Coperative. Nonsuicidal Musculoskeletal: No joint swelling or deformity. Normal range of motion. Results CBC & Chem 7: 02/09/20 12:24 02/09/20 12:24 Labs: Abnormal Lab Results - Last 24 Hours (Table) 02/09/20 02/09/20 Range/Units 12:24 12:24 Eosinophils # 1.1 H (0-0.7) k/uL Sodium 134 L (137-145) mmol/L BUN 7 L (9-20) mg/dL Creatinine 0.52 L (0.66-1.25) mg/dL Glucose 113 H (74-99) mg/dL Assessment and Plan Assessment: Acute hypoxic respiratory failure. Secondary to COPD exacerbation Ongoing nicotine addiction Daily alcohol use Anxiety/depression Hyperlipidemia History of AAA repair 06/28/19 iliac stent, aortic stent DVT prophylaxis with heparin subcu GI prophylaxis Plan: Patient will be continued on BiPAP and gradually titrate down to oxygen via nasal cannula. Patient is not on home oxygen at baseline. Continue with IV st eroids and duo nebs and Symbicort. Continue with aspirin statins and home medications. Pulmonary was consulted. Continue to follow closely. Prognosis guarded. Smoking cessation has been counseled extensively.
[2020-02-10] MEDS: methylPREDNISolone SOD SUCCI 125 MG/2 ML VIAL IV SCH ×3 (00:11→12:40)
[2020-02-10 06:14] LABS: Glucose,Whole Blood 192 mg/dL (75-99)
[2020-02-10] MEDS: INSULIN ASPART (NovoLOG) 100 UNIT/ML VIAL SQ SCH ×2 (06:38→12:40)
[2020-02-10] MEDS ORDERED: PANTOPRAZOLE 40 MG TABLET PO SCH (07:30)
[2020-02-10] MEDS: IPRATROPIUM-ALBUTEROL 3 ML NEB INHALATION SCH ×2 (08:07→13:16)
[2020-02-10] MEDS: FORMOTEROL FUMARATE 20 MCG/2 ML NEBU INHALATION SCH (08:07)
[2020-02-10] MEDS: BUDESONIDE 1 MG/2 ML NEBU INHALATION SCH (08:07)
[2020-02-10] MEDS ORDERED: ASPIRIN 81 MG PO SCH (09:00)
[2020-02-10] MEDS: NICOTINE 14MG/24HR PATCH TRANSDERM SCH (09:49)
[2020-02-10] MEDS: AZITHROMYCIN 500 MG TAB PO SCH (09:56)
[2020-02-10 10:43] VITALS: RESP 20; TEMP 97.6
[2020-02-10 12:04] LABS: Glucose,Whole Blood 198 mg/dL (75-99)
[2020-02-10 12:19] VITALS: BP 130/85; PULSE 73
--- NOTE | 2020-02-10 12:30 | P.CNPUL ---
History of Present Illness Consult date: 02/09/20 Reason for consult: dyspnea Chief complaint: Shortness of breath History of present illness: 69-year-old white male patient who follows at the [facility] for his primary care needs with known history of COPD, chronic tobacco dependence, hyperlipidemia, GERD/reflux, abdominal aortic aneurysm status post repair with aortic and iliac stent in June 2019. Patient also has a history of daily alcohol use, and he continues to smoke. He carries a 48 [id number] smoking history. He was hospitalized in November 2023 acute exacerbation of COPD. Have previously seen the patient in consultation during his hospitalizations for abdominal aortic aneurysm repair with stenting, however patient never followed up in the office. Patient presented to the emergency department on 02/09/2020 with complaints of shortness of breath, chronic cough, denied any fever or chills. For the past several days patient spent a lot of time indoors by his air conditioning in view of hot and humid temperatures, and because of fluctuation in temperature he states his air conditioner was on and off and this may have triggered his shortness of breath. Patient did take multiple breathing treatments however the relief from dyspnea did not last longer than half an hour. Denied any chest pain or palpitations, no nausea vomiting diarrhea, no lightheadedness or dizziness. No increased leg swelling or calf tenderness. Chest x-ray shows no acute abnormalities, and EKG showed normal sinus rhythm with evidence of inferior infarct of undetermined age. Patient was placed on BiPAP support, breathing treatments and IV steroids have been started. COVID 19 test is pending, patient is afebrile. CBC is within normal limits, with a mildly elev ated he was seen neutrophils, coagulation profile is within normal limits, sodium is 134, the rest of electrolytes are within normal limits, BUN is 7, creatinine 0.52. LFTs are within normal limits, troponin is less than 0.012, proBNP is normal at 55. Patient required BiPAP support initially, he has been switched to nasal cannula at 3 L last night at 1900, he is breathing has significantly improved since admission. He has been up ambulating, his coronavirus PCR was negative Review of Systems All systems: negative Constitutional: Denies chills, Denies fever Eyes: denies blurred vision, denies pain Ears, nose, mouth and throat: Denies headache, Denies sore throat Cardiovascular: Denies chest pain, Denies shortness of breath Respiratory: Reports cough, Reports dyspnea, Reports respiratory infections, Reports wheezing Gastrointestinal: Denies abdominal pain, Denies diarrhea, Denies nausea, Denies vomiting Musculoskeletal: Denies myalgias Integumentary: Denies pruritus, Denies rash Neurological: Denies numbness, Denies weakness Psychiatric: Denies anxiety, Denies depression Endocrine: Denies fatigue, Denies weight change Past Medical History Past Medical History: COPD, GERD/Reflux, Myocardial Infarction ([place]), Pneumonia, Vascular Disorder Additional Past Medical History / Comment(s): Bronchitis, past respiratory failure, PVD, pt states SC per EKG, beginnings of bilateral cataracts. Last Myocardial Infarction Date:: 2009 per EKG History of Any Multi-Drug Resistant Organisms: None Reported Past Surgical History: Appendectomy Additional Past Surgical History / Comment(s): Endovascular aortic repair, L iliac stent, colonoscopy Past Anesthesia/Blood Transfusion Reactions: No Reported Reaction Smoking Status: Current every day smoker - Past Family History Mother Family Medical History: Liver Disease Additional Family Medical History / Comment(s): liver cirrhosis Brother(s) Family Medical History: Vascular Disorder Father Family Medical History: Myocardial Infarction ([place]) Medications and Allergies Home Medications Medication Instructions Recorded Confirmed Type Albuterol Sulfate [Ventolin HFA] 2 puff INHALATION RT-QID PRN 06/21/19 02/09/20 History Budesonide-Formot 160-4.5 Mcg 2 puff INHALATION RT-BID 06/21/19 02/09/20 History [Symbicort 160-4.5 Mcg Inhaler (Mhu)] Ipratropium-Albuterol Nebulize 3 ml INHALATION RT-QID 06/21/19 02/09/20 History [Duoneb 0.5 mg-3 mg/3 ml Soln] Omeprazole 20 mg PO DAILY 06/21/19 02/09/20 History Aspirin EC [Ecotrin Low Dose] 81 mg PO DAILY 12/11/19 02/09/20 History Atorvastatin [Lipitor] 40 mg PO HS 12/11/19 02/09/20 History EPINEPHrine (Auto Inject) [Epipen] 0.3 mg IM ONCE PRN 12/11/19 02/09/20 History Melatonin 3 mg PO HS 12/11/19 02/09/20 History Nitroglycerin Sl Tabs [Nitrostat] 0.4 mg SUBLINGUAL Q5M PRN 12/11/19 02/09/20 History Allergies Allergy/AdvReac Type Severity Reaction Status Date / Time bee venom protein (honey bee) Allergy Unknown Verified 02/09/20 15:56 bupropion [From Wellbutrin] Allergy Unknown Verified 02/09/20 15:56 simvastatin [From Zocor] Allergy Unknown Verified 02/09/20 15:56 Physical Exam Vitals: Vital Signs Temp Pulse Resp BP Pulse Ox 02/09/20 15:14 71 20 02/09/20 15:06 77 20 02/09/20 15:00 74 20 143/86 98 02/09/20 14:00 76 22 144/96 99 02/09/20 13:14 80 20 130/102 99 02/09/20 12:52 83 02/09/20 12:36 87 02/09/20 12:02 97.5 F L 85 28 H 139/81 98 Intake and Output 02/09/20 02/09/20 02/09/20 06:59 14:59 22:59 Other: Weight 74.843 kg 74.843 kg GENERAL EXAM: Alert, pleasant, 69-year-old white male, early on patient was on BiPAP support, with FiO2 of 30%, currently on nasal cannula at 3 L with a pulse ox of 95% comfortable in no apparent distress. HEAD: Normocephalic/atraumatic. EYES: Normal reaction of pupils, equal size. Conjunctiva pink, sclera white. NOSE: Clear with pink turbinates. THROAT: No erythema or exudates. NECK: No masses, no JVD, no thyroid enlargement, no adenopathy. CHEST: No chest wall deformity. Symmetrical expansion. LUNGS: Equal air entry with diminished breath sounds with diffuse end expiratory wheezes CVS: Regular rate and rhythm, normal S1 and S2, no gallops, no murmurs, no rubs ABDOMEN: Soft, nontender. No hepatosplenomegaly, normal bowel sounds, no guarding or rigidity. EXTREMITIES: No clubbing, no edema, no cyanosis, 2+ pulses and upper and lower extremities. MUSCULOSKELETAL: Muscle strength and tone normal. SPINE: No scoliosis or deformity SKIN: No rashes CENTRAL NERVOUS SYSTEM: Alert and oriented -3. No focal deficits, tone is normal in all 4 extremities. PSYCHIATRIC: Alert and oriented -3. Appropriate affect. Intact judgment and insight. Results - Laboratory Findings CBC and BMP: 02/09/20 12:24 02/09/20 12:24 PT/INR, D-dimer PT 10.1 sec (9.0-12.0) 02/09/20 12:24 INR 1.0 (<1.2) 02/09/20 12:24 Abnormal lab findings: Abnormal Labs 02/09/20 02/09/20 12:24 12:24 Eosinophils # 1.1 H Sodium 134 L BUN 7 L Creatinine 0.52 L Glucose 113 H - Diagnostic Findings Chest x-ray: report reviewed, image reviewed Additional studies: EKG reviewed Assessment and Plan Plan: Assessment: #1. Acute on chronic dyspnea related to acute exacerbation of chronic obstructive pulmonary disease, chest x-ray shows no evidence of acute pulmonary process. COVID 19 was negative #2. History of COPD, severity of which is unknown. Not oxygen dependent at baseline, patient never followed up in the outpatient setting in the pulmonary clinic #3. Previous history of pneumonia #4. Abdominal aortic aneurysm, status post surgical repair on 06/28/2019 with placement of aortic and iliac stent #5. Anxiety #6. Current every day smoker, carries a 40+-pack-year smoking history #7. Dyslipidemia #8. History of EtOH abuse Plan: Continue steroids, will continue bronchodilators, will and Pulmicort, Perforomi st, chest x-ray reviewed shows no clear evidence of pneumonia, patient did require BiPAP support initially, improved, he had since been switched to nasal cannula, COVID 19 PCR is negative, no fever or chills. Nicotine replacement patch. Patient has significantly improved since admission, tolerating ambulation, room air pulse ox 96%, smoking cessation has been advised, patient is requesting to go home today, from pulmonary perspective he can be considered for discharge home today on prednisone taper, breathing treatments, he is not requiring any oxygen, would like to see him in follow-up in the office with Dr. Zepeda in 7-10 days. I performed a history & physical examination of the patient and discussed their management with my nurse practitioner, Glenda Avila. I reviewed the nurse practitioner's note and agree with the documented findings and plan of care. Lung sounds are positive for diffuse wheezes throughout the lung franklin. The findings and the impression was discussed with the patient. I attest to the documentation by the nurse practitioner. Time with Patient: Greater than 30
[2020-02-10] MEDS ORDERED: MELATONIN 3 MG TABLET PO SCH (21:00)
== END 2020-02-10 13:29 | disposition left against medical advice (07) | DRG 190 ==
LOC: EC 11:57 → 3SCARD 14:11
PROVIDERS: ADMIT Internal Medicine; ATTEND Internal Medicine
PROC: 5A09357 Assistance with Respiratory Ventilation, Less than 24 Consecutive Hours, Continuous Positive Airway Pressure (ICD-10-PCS; principal; 2020-02-09)
DX: J44.1 Chronic obstructive pulmonary disease with (acute) exacerbation (principal); J96.01 Acute respiratory failure with hypoxia; K21.9 Gastro-esophageal reflux disease without esophagitis; F41.9 Anxiety disorder, unspecified; F32.9 Major depressive disorder, single episode, unspecified; F17.200 Nicotine dependence, unspecified, uncomplicated; E78.5 Hyperlipidemia, unspecified; Z20.828 Contact with and (suspected) exposure to other viral communicable diseases; I73.9 Peripheral vascular disease, unspecified; I71.4 Abdominal aortic aneurysm, without rupture; Z90.49 Acquired absence of other specified parts of digestive tract; Z87.01 Personal history of pneumonia (recurrent); Z79.899 Other long term (current) drug therapy; I25.2 Old myocardial infarction; Z79.82 Long term (current) use of aspirin; Z79.51 Long term (current) use of inhaled steroids; Z88.8 Allergy status to other drugs, medicaments and biological substances; Z91.030 Bee allergy status; Z83.79 Family history of other diseases of the digestive system; Z82.49 Family history of ischemic heart disease and other diseases of the circulatory system
CPT/HCPCS: 36415; 71045; 80053; 83605; 83735; 83880; 84484; 85025; 85610; 85730; 87040; 93005; 94640; 94660; 99291

== ENCOUNTER 2021-04-21 16:30 | Emergency (ER) | payer OTHER ==
[2021-04-21] MEDS ORDERED: SODIUM CHLORIDE 0.9% 1,000 ML IV STA (16:36)
[2021-04-21 16:55] VITALS: BP 154/93; PULSE 79; RESP 18; TEMP 97.8
[2021-04-21 16:56] LABS: Basophils % (A) 1 %; Eosinophils # (A) 0.2 k/uL (0-0.7); Eosinophils % (A) 3 %; HCT 45.2 % (39.0-53.0); HGB 15.6 gm/dL (13.0-17.5); Lymphocytes # (A) 1.2 k/uL (1.0-4.8); Lymphocytes % (A) 17 %; MCH 34.3 pg (25.0-35.0); MCHC 34.5 g/dL (31.0-37.0); MCV 99.2 fL (80.0-100.0); Mean Platelet Volume 6.9; Monocytes # (A) 0.4 k/uL (0-1.0); Monocytes % (A) 5 %; Neutrophils # (A) 5.3 k/uL (1.3-7.7); Neutrophils % (A) 71 %; Platelet Count 197 k/uL (150-450); RBC 4.56 m/uL (4.30-5.90); RDW 13.1 % (11.5-15.5); WBC 7.4 k/uL (3.8-10.6)
[2021-04-21 17:09] LABS: INR 0.9 (<1.2); Partial Thromboplastin Time 27.1 sec (22.0-30.0); Prothrombin Time 10.2 sec (9.0-12.0)
--- NOTE | 2021-04-21 17:10 | XR ---
EXAMINATION TYPE: XR chest 1V portable DATE OF EXAM: 04/21/2021 COMPARISON: 03/19/2020 HISTORY: Syncope TECHNIQUE: FINDINGS: Heart size is fairly normal. There is no heart failure. There is mild subsegmental atelecta sis at the lung bases. There is probably also some COPD. There are no hilar masses. IMPRESSION: Mild subsegmental atelectasis appears new compared to old exam. No heart failure.
[2021-04-21 17:14] LABS: ALT 18 U/L (4-49); AST 30 U/L (17-59); African American GFR (CKD) >90 (>60 ml/min/1.73 sqM); Albumin 4.2 g/dL (3.5-5.0); Alkaline Phosphatase 74 U/L (38-126); Anion Gap 12 mmol/L; Blood Urea Nitrogen 9 mg/dL (9-20); Calcium 8.5 mg/dL (8.4-10.2); Carbon Dioxide 18 mmol/L (22-30); Chloride 98 mmol/L (98-107); Creatine Kinase 189 U/L (55-170); Glucose 106 mg/dL (74-99); Magnesium 1.8 mg/dL (1.6-2.3); Non-African American GFR(CKD) >90 (>60 ml/min/1.73 sqM); Potassium 4.1 mmol/L (3.5-5.1); Sodium 128 mmol/L (137-145); Total Bilirubin 0.5 mg/dL (0.2-1.3); Total Protein 6.9 g/dL (6.3-8.2)
--- NOTE | 2021-04-21 17:20 | ED ---
Alcohol HPI - General Chief Complaint: Alcohol Stated Complaint: ETOH Time Seen by Provider: 04/21/21 16:30 Source: family, EMS, RN notes reviewed, old records reviewed Mode of arrival: EMS Limitations: altered mental status - History of Present Illness Initial Comments: 70-year-old with a history of COPD and post medic stress disorder who apparently was self-medicating today with alcohol he did have a total of 3 syncopal episodes to witnessed by paramedics. Patient was on a monitor to time no cardiac dysrhythmia noted. No injury reported. Patient does admit to drinking a lot of whiskey today. No other drugs reported. He denies any pain at this time. 2 episodes were witnessed lasted for perhaps 1-2 minutes the patient did respond to sternal rubs. MD Complaint: alcohol intoxication - Related Data Home Medications Medication Instructions Recorded Confirmed Albuterol Sulfate [Ventolin HFA] 2 puff INHALATION RT-QID PRN 06/21/19 02/09/20 Budesonide-Formot 160-4.5 Mcg 2 puff INHALATION RT-BID 06/21/19 02/09/20 [Symbicort 160-4.5 Mcg Inhaler (Mhu)] Ipratropium-Albuterol Nebulize 3 ml INHALATION RT-QID 06/21/19 02/09/20 [Duoneb 0.5 mg-3 mg/3 ml Soln] Omeprazole 20 mg PO DAILY 06/21/19 02/09/20 Aspirin EC [Ecotrin Low Dose] 81 mg PO DAILY 12/11/19 02/09/20 Atorvastatin [Lipitor] 40 mg PO HS 12/11/19 02/09/20 EPINEPHrine (Auto Inject) [Epipen] 0.3 mg IM ONCE PRN 12/11/19 02/09/20 Melatonin 3 mg PO HS 12/11/19 02/09/20 Nitroglycerin Sl Tabs [Nitrostat] 0.4 mg SUBLINGUAL Q5M PRN 12/11/19 02/09/20 Allergies Allergy/AdvReac Type Severity Reaction Status Date / Time bee venom protein (honey bee) Allergy Unknown Verified 02/09/20 15:56 bupropion [From Wellbutrin] Allergy Unknown Verified 02/09/20 15:56 simvastatin [From Zocor] Allergy Unknown Verified 02/09/20 15:56 Review of Systems ROS Statement: Those systems with pertinent positive or pertinent negative responses have been documented in the HPI. ROS Other: All systems not noted in ROS Statement are negative. Past Medical History Past Medical History: COPD, GERD/Reflux, Myocardial Infarction ([place]), Pneumonia, Vascular Disorder Additional Past Medical History / Comment(s): Bronchitis, past respiratory failure, PVD, pt states [place] per EKG, beginnings of bilateral cataracts. Last Myocardial Infarction Date:: 2009 per EKG History of Any Multi-Drug Resistant Organisms: None Reported Past Surgical History: Appendectomy Additional Past Surgical History / Comment(s): Endovascular aortic repair, L iliac stent, colonoscopy Past Anesthesia/Blood Transfusion Reactions: No Reported Reaction Past Psychological History: Anxiety, Depression, PTSD Smoking Status: Current every day smoker Past Alcohol Use History: Occasional Past Drug Use History: None Reported - Past Family History Mother Family Medical History: Liver Disease Additional Family Medical History / Comment(s): liver cirrhosis Brother(s) Family Medical History: Vascular Disorder Father Family Medical History: Myocardial Infarction ([place]) General Exam - General Exam Comments Initial Comments: This is a well-developed well-nourished awake alert but lethargic male with the smell of alcohol conjoiners on his breath Limitations: altered mental status General appearance: alert, lethargic Head exam: Present: atraumatic, normocephalic, normal inspection Eye exam: Present: normal appearance, PERRL, EOMI. Absent: scleral icterus, conjunctival injection, periorbital swelling ENT exam: Present: mucous membranes dry Neck exam: Present: normal inspection. Absent: tenderness, meningismus, lymphadenopathy Respiratory exam: Present: normal lung sounds bilaterally. Absent: respiratory distress, wheezes, rales, rhonchi, stridor Cardiovascular Exam: Present: regular rate, normal rhythm, normal heart sounds. Absent: systolic murmur, diastolic murmur, rubs, gallop, clicks GI/Abdominal exam: Present: soft, normal bowel sounds, other (Distended with epigastric discomfort to palpation no guarding rebound masses or bruits). Absent: distended, tenderness, guarding, rebound, rigid Rectal exam: Present: deferred Extremities exam: Present: normal inspection, full ROM, normal capillary refill. Absent: tenderness, pedal edema, joint swelling, calf tenderness Back exam: Present: normal inspection Neurological exam: Present: alert, oriented X3, CN II-XII intact Psychiatric exam: Present: normal affect, normal mood Skin exam: Present: warm, dry, intact, normal color. Absent: rash Course Vital Signs 04/21/21 16:36 Temperature 97.8 F Pulse Rate 79 Respiratory 18 Rate Blood Pressure 154/93 O2 Sat by Pulse 97 Oximetry - Reevaluation(s) Reevaluation #1: 04/21/21 20:10 Reevaluation patient finds in the awake alert oriented 3 no distress he denies any thoughts of hurting himself he is was a go home and sleep. He is demonstrating good his making capacity at this time. He'll be discharged home with a nephew Medical Decision Making - Medical Decision Making Patient will be discharged home with a nephew. Patient agrees not to drink anymore alcohol he is not demonstrating suicidal thoughts or ideation a harm to himself. He does realize he drank too much alcohol tonight. - Lab Data Result diagrams: 04/21/21 16:37 04/21/21 16:37 Lab Results 04/21/21 04/21/21 04/21/21 Range/Units 16:37 16:37 16:37 WBC 7.4 (3.8-10.6) k/uL RBC 4.56 (4.30-5.90) m/uL Hgb 15.6 (13.0-17.5) gm/dL Hct 45.2 (39.0-53.0) % MCV 99.2 (80.0-100.0) fL MCH 34.3 (25.0-35.0) pg MCHC 34.5 (31.0-37.0) g/dL RDW 13.1 (11.5-15.5) % Plt Count 197 (150-450) k/uL MPV 6.9 Neutrophils % 71 % Lymphocytes % 17 % Monocytes % 5 % Eosinophils % 3 % Basophils % 1 % Neutrophils # 5.3 (1.3-7.7) k/uL Lymphocytes # 1.2 (1.0-4.8) k/uL Monocytes # 0.4 (0-1.0) k/uL Eosinophils # 0.2 (0-0.7) k/uL Basophils # 0.0 (0-0.2) k/uL PT 10.2 (9.0-12.0) sec INR 0.9 (<1.2) APTT 27.1 (22.0-30.0) sec Sodium 128 L (137-145) mmol/L Potassium 4.1 (3.5-5.1) mmol/L Chloride 98 (98-107) mmol/L Carbon Dioxide 18 L (22-30) mmol/L Anion Gap 12 mmol/L BUN 9 (9-20) mg/dL Creatinine 0.66 (0.66-1.25) mg/dL Est GFR (CKD-EPI)AfAm >90 (>60 ml/min/1.73 sqM) Est GFR (CKD-EPI)NonAf >90 (>60 ml/min/1.73 sqM) Glucose 106 H (74-99) mg/dL Calcium 8.5 (8.4-10.2) mg/dL Magnesium 1.8 (1.6-2.3) mg/dL Total Bilirubin 0.5 (0.2-1.3) mg/dL AST 30 (17-59) U/L ALT 18 (4-49) U/L Alkaline Phosphatase 74 (38-126) U/L Ammonia (<30) umol/L Creatine Kinase 189 H (55-170) U/L Troponin I (0.000-0.034) ng/mL Total Protein 6.9 (6.3-8.2) g/dL Albumin 4.2 (3.5-5.0) g/dL Lipase 46 (23-300) U/L Urine Color Urine Appearance (Clear) Urine pH (5.0-8.0) Ur Specific [place] (1.001-1.035) Urine Protein (Negative) Urine Glucose (UA) (Negative) Urine Ketones (Negative) Urine Blood (Negative) Urine Nitrite (Negative) Urine Bilirubin (Negative) Urine Urobilinogen (<2.0) mg/dL Ur Leukocyte Esterase (Negative) Serum Alcohol 285 H* mg/dL 04/21/21 04/21/21 04/21/21 Range/Units 16:37 16:39 16:47 WBC (3.8-10.6) k/uL RBC (4.30-5.90) m/uL Hgb (13.0-17.5) gm/dL Hct (39.0-53.0) % MCV (80.0-100.0) fL MCH (25.0-35.0) pg MCHC (31.0-37.0) g/dL RDW (11.5-15.5) % Plt Count (150-450) k/uL MPV Neutrophils % % Lymphocytes % % Monocytes % % Eosinophils % % Basophils % % Neutrophils # (1.3-7.7) k/uL Lymphocytes # (1.0-4.8) k/uL Monocytes # (0-1.0) k/uL Eosinophils # (0-0.7) k/uL Basophils # (0-0.2) k/uL PT (9.0-12.0) sec INR (<1.2) APTT (22.0-30.0) sec Sodium (137-145) mmol/L Potassium (3.5-5.1) mmol/L Chloride (98-107) mmol/L Carbon Dioxide (22-30) mmol/L Anion Gap mmol/L BUN (9-20) mg/dL Creatinine (0.66-1.25) mg/dL Est GFR (CKD-EPI)AfAm (>60 ml/min/1.73 sqM) Est GFR (CKD-EPI)NonAf (>60 ml/min/1.73 sqM) Glucose (74-99) mg/dL Calcium (8.4-10.2) mg/dL Magnesium (1.6-2.3) mg/dL Total Bilirubin (0.2-1.3) mg/dL AST (17-59) U/L ALT (4-49) U/L Alkaline Phosphatase (38-126) U/L Ammonia <9 (<30) umol/L Creatine Kinase (55-170) U/L Troponin I <0.012 (0.000-0.034) ng/mL Total Protein (6.3-8.2) g/dL Albumin (3.5-5.0) g/dL Lipase (23-300) U/L Urine Color Light Yellow Urine Appearance Clear (Clear) Urine pH 6.0 (5.0-8.0) Ur Specific [place] 1.006 (1.001-1.035) Urine Protein Negative (Negative) Urine Glucose (UA) Negative (Negative) Urine Ketones Negative (Negative) Urine Blood Negative (Negative) Urine Nitrite Negative (Negative) Urine Bilirubin Negative (Negative) Urine Urobilinogen <2.0 (<2.0) mg/dL Ur Leukocyte Esterase Negative (Negative) Serum Alcohol mg/dL Disposition Clinical Impression: Alcoholic intoxication, History of posttraumatic stress disorder (PTSD) Disposition: HOME SELF-CARE Condition: Good Instructions (If sedation given, give patient instructions): Alcohol Intoxication (ED) Is patient prescribed a controlled substance at d/c from ED?: No Referrals: [facility],Clinic [Primary Care Provider] - 1-2 days
[2021-04-21 17:30] LABS: Lipase 46 U/L (23-300)
[2021-04-21 17:34] LABS: Alcohol 285 mg/dL
[2021-04-21 17:51] LABS: Appearance,Urine Clear (Clear); Bilirubin,Urine Negative (Negative); Blood,Urine Negative (Negative); Color,Urine Light Yellow; Glucose,Urine (UA) Negative (Negative); Ketones,Urine Negative (Negative); Leukocyte Esterase,Urine Negative (Negative); Nitrite,Urine Negative (Negative); Protein,Urine Negative (Negative); Specific Gravity,Urine 1.006 (1.001-1.035); Urobilinogen,Urine <2.0 mg/dL (<2.0)
--- NOTE | 2021-04-21 17:54 | CT ---
EXAMINATION TYPE: CT brain wo con DATE OF EXAM: 04/21/2021 COMPARISON: None HISTORY: Syncope. CT DLP: 1836.9 mGycm Automated exposure control for dose reduction was used. There is mild cerebral atrophy. There is no mass effect nor midline shift. There is no sign of intrac ranial hemorrhage. The calvarium is intact. There is some mucosal thickening in the right side spheno id sinus. Skull base is intact. IMPRESSION: Cerebral atrophy. No acute intracranial abnormality. Right side sphenoid sinusitis.
--- NOTE | 2021-04-21 17:55 | XR ---
EXAMINATION TYPE: XR KUB portable DATE OF EXAM: 04/21/2021 COMPARISON: NONE HISTORY: Abdominal pain TECHNIQUE: 2 views supine FINDINGS: Bowel gas pattern is normal. There is no sign of intestinal obstruction or pneumoperitoneum . Fecal pattern is normal. There is inferior vena cava filter. Lung bases are clear. There is no evid ence of a mass. There are iliac artery stents. IMPRESSION: Nonacute abdomen.
== END 2021-04-21 20:50 | disposition home or self-care (01) ==
LOC: EC 16:30
DX: F10.129 Alcohol abuse with intoxication, unspecified (principal); J44.9 Chronic obstructive pulmonary disease, unspecified; I25.2 Old myocardial infarction; K21.9 Gastro-esophageal reflux disease without esophagitis; F32.9 Major depressive disorder, single episode, unspecified; F41.9 Anxiety disorder, unspecified; F17.200 Nicotine dependence, unspecified, uncomplicated; Z86.59 Personal history of other mental and behavioral disorders; Z79.51 Long term (current) use of inhaled steroids; Z79.82 Long term (current) use of aspirin; Z90.49 Acquired absence of other specified parts of digestive tract; Y90.8 Blood alcohol level of 240 mg/100 ml or more
CPT/HCPCS: 36415; 70450; 71045; 74018; 80053; 80320; 81003; 82140; 82550; 83690; 83735; 84484; 85025; 85610; 85730; 93005; 96360; 99285

== ENCOUNTER 2021-12-08 04:25 | Observation (INO) | payer MEDICARE, OTHER ==
[2021-12-08 05:15] LABS: Basophils # (A) 0.1 k/uL (0-0.2); Basophils % (A) 0 %; Eosinophils # (A) 0.1 k/uL (0-0.7); Eosinophils % (A) 1 %; HCT 45.5 % (39.0-53.0); HGB 14.9 gm/dL (13.0-17.5); Lymphocytes # (A) 0.9 k/uL (1.0-4.8); Lymphocytes % (A) 7 %; MCH 32.1 pg (25.0-35.0); MCHC 32.9 g/dL (31.0-37.0); MCV 97.8 fL (80.0-100.0); Mean Platelet Volume 7.1; Monocytes # (A) 0.6 k/uL (0-1.0); Monocytes % (A) 5 %; Neutrophils # (A) 10.8 k/uL (1.3-7.7); Neutrophils % (A) 84 %; Platelet Count 227 k/uL (150-450); RBC 4.65 m/uL (4.30-5.90); RDW 13.1 % (11.5-15.5); WBC 12.8 k/uL (3.8-10.6)
--- NOTE | 2021-12-08 05:16 | XR ---
EXAMINATION TYPE: XR chest 2V DATE OF EXAM: 12/08/2021 COMPARISON: 04/21/2021 HISTORY: Chest pain TECHNIQUE: 2 views FINDINGS: There is airspace patchy consolidation in the anterior right upper lobe. The lung franklin ar e clear. Heart size is normal. No hilar mass. There is no pleural effusion. IMPRESSION: Right upper lobe pneumonia appears new compared to the old exam.
[2021-12-08 05:29] LABS: ALT 66 U/L (4-49); AST 52 U/L (17-59); African American GFR (CKD) >90 (>60 ml/min/1.73 sqM); Albumin 3.1 g/dL (3.5-5.0); Alkaline Phosphatase 141 U/L (38-126); Anion Gap 7 mmol/L; Blood Urea Nitrogen 15 mg/dL (9-20); Calcium 8.2 mg/dL (8.4-10.2); Carbon Dioxide 21 mmol/L (22-30); Chloride 100 mmol/L (98-107); Glucose 164 mg/dL (74-99); Magnesium 1.6 mg/dL (1.6-2.3); Non-African American GFR(CKD) >90 (>60 ml/min/1.73 sqM); Potassium 4.1 mmol/L (3.5-5.1); Sodium 128 mmol/L (137-145); Total Bilirubin 1.6 mg/dL (0.2-1.3); Total Protein 5.7 g/dL (6.3-8.2)
[2021-12-08] MEDS ORDERED: ALBUTEROL NEBULIZED 2.5 MG/3 ML INHALATION PRN (05:39)
[2021-12-08] MEDS ORDERED: ACETAMINOPHEN TAB 325 MG TAB PO PRN (05:39)
[2021-12-08] MEDS ORDERED: PNEUMONIA PROTOCOL UTILIZED 1 EACH MISC PO PRN (05:39)
[2021-12-08] MEDS ORDERED: NITROGLYCERIN SL TABS 0.4 MG TAB SUBLINGUAL PRN (05:44)
[2021-12-08 05:48] LABS: Partial Thromboplastin Time 29.2 sec (22.0-30.0); Prothrombin Time 10.9 sec (9.0-12.0)
--- NOTE | 2021-12-08 05:50 | ED ---
Chest Pain HPI - General Chief Complaint: Chest Pain Stated Complaint: chest pain Time Seen by Provider: 12/08/21 04:57 Source: police Mode of arrival: ambulatory - History of Present Illness Initial Comments: This patient is 71-year-old man with history of some underlying COPD who presents with chest pain that is been going on for approximately 3-4 days. He states that it is an aching pain that comes on mainly when he coughs. The patient states she has had a little bit of an increase in cough over his baseline. He is also feeling a little short of breath more than usual. He has not noted fever or chills. The cough is productive of some yellowish sputum. No hemoptysis. MD Complaint: chest pain Onset/Timin -: hour(s) Onset: during rest Pain Location: right chest Pain Radiation: none Severity: severe Quality: sharp Consistency: intermittent Worsens With: other (Coughing) Other Symptoms: cough Treatments Prior to Arrival: none - Related Data Home Medications Medication Instructions Recorded Confirmed Albuterol Sulfate [Ventolin HFA] 2 puff INHALATION RT-QID PRN 06/21/19 02/09/20 Budesonide-Formot 160-4.5 Mcg 2 puff INHALATION RT-BID 06/21/19 02/09/20 [Symbicort 160-4.5 Mcg Inhaler (Mhu)] Ipratropium-Albuterol Nebulize 3 ml INHALATION RT-QID 06/21/19 02/09/20 [Duoneb 0.5 mg-3 mg/3 ml Soln] Omeprazole 20 mg PO DAILY 06/21/19 02/09/20 Aspirin EC [Ecotrin Low Dose] 81 mg PO DAILY 12/11/19 02/09/20 Atorvastatin [Lipitor] 40 mg PO HS 12/11/19 02/09/20 EPINEPHrine (Auto Inject) [Epipen] 0.3 mg IM ONCE PRN 12/11/19 02/09/20 Melatonin 3 mg PO HS 12/11/19 02/09/20 Nitroglycerin Sl Tabs [Nitrostat] 0.4 mg SUBLINGUAL Q5M PRN 12/11/19 02/09/20 Allergies Allergy/AdvReac Type Severity Reaction Status Date / Time bee venom protein (honey bee) Allergy Unknown Verified 12/08/21 04:34 bupropion [From Wellbutrin] Allergy Unknown Verified 12/08/21 04:34 simvastatin [From Zocor] Allergy Unknown Verified 12/08/21 04:34 Review of Systems ROS Statement: Those systems with pertinent positive or pertinent negative responses have been documented in the HPI. ROS Other: All systems not noted in ROS Statement are negative. Constitutional: Denies: fever, chills, weakness Respiratory: Reports: as per HPI, cough, dyspnea. Denies: hemoptysis Cardiovascular: Reports: as per HPI, chest pain. Denies: palpitations, orthopnea, edema, syncope Gastrointestinal: Denies: abdominal pain, nausea, vomiting Genitourinary: Denies: urgency, dysuria, frequency Musculoskeletal: Denies: back pain Skin: Denies: rash Neurological: Denies: headache, weakness, numbness Past Medical History Past Medical History: COPD, GERD/Reflux, Myocardial Infarction ([place]), Pneumonia, Vascular Disorder Additional Past Medical History / Comment(s): Bronchitis, past respiratory failure, PVD, pt states [place] per EKG, beginnings of bilateral cataracts. Last Myocardial Infarction Date:: 2009 per EKG History of Any Multi-Drug Resistant Organisms: None Reported Past Surgical History: Appendectomy Additional Past Surgical History / Comment(s): Endovascular aortic repair, L iliac stent, colonoscopy Past Anesthesia/Blood Transfusion Reactions: No Reported Reaction Past Psychological History: Anxiety, Depression Smoking Status: Current some day smoker Past Alcohol Use History: Occasional Past Drug Use History: None Reported - Past Family History Mother Family Medical History: Liver Disease Additional Family Medical History / Comment(s): liver cirrhosis Brother(s) Family Medical History: Vascular Disorder Father Family Medical History: Myocardial Infarction ([place]) General Exam General appearance: alert, in no apparent distress Head exam: Present: atraumatic, normocephalic Eye exam: Present: normal appearance. Absent: scleral icterus, conjunctival injection ENT exam: Present: normal oropharynx Neck exam: Present: normal inspection, full ROM Respiratory exam: Present: rales (Right upper lung field). Absent: respiratory distress, wheezes, rhonchi, stridor, accessory muscle use, decreased breath sounds, prolonged expiratory Cardiovascular Exam: Present: regular rate, normal rhythm, normal heart sounds. Absent: systolic murmur, diastolic murmur, rubs, gallop GI/Abdominal exam: Present: soft. Absent: distended, tenderness, guarding, rebound, rigid, mass Extremities exam: Present: normal inspection, normal capillary refill. Absent: pedal edema, calf tenderness Back exam: Present: normal inspection. Absent: CVA tenderness (R), CVA tenderness (L) Neurological exam: Present: alert Skin exam: Present: warm, dry, intact, normal color. Absent: rash Course Vital Signs 12/08/21 12/08/21 12/08/21 04:29 04:34 06:24 Temperature 98.3 F Pulse Rate 100 93 87 Respiratory 19 17 Rate Blood Pressure 103/67 116/75 113/70 O2 Sat by Pulse 96 95 Oximetry Disposition Clinical Impression: Pneumonia Disposition: ADMITTED IP TO THIS HOSP Condition: Good Is patient prescribed a controlled substance at d/c from ED?: No
[2021-12-08] MEDS ORDERED: AZITHROMYCIN 500 MG in SODIUM CHLORIDE 0.9% 250 ML IVPB ONE (06:00)
[2021-12-08] MEDS: SODIUM CHLORIDE 0.9% 1,000 ML IV SCH ×3 (06:19→15:48)
[2021-12-08] MEDS: IPRATROPIUM-ALBUTEROL 3 ML NEB INHALATION SCH ×4 (08:10→20:31)
[2021-12-08] MEDS: SYMBICORT 160-4.5 MCG INHALER INHALATION SCH ×2 (08:11→20:31)
[2021-12-08] MEDS: HEPARIN SODIUM,PORCINE/PF 5,000 UNIT/0.5 ML SYRINGE SQ SCH ×3 (08:46→22:52)
[2021-12-08] MEDS: PANTOPRAZOLE 40 MG TABLET PO SCH (08:46)
[2021-12-08] MEDS: ASPIRIN 81 MG PO SCH (08:46)
[2021-12-08] MEDS ORDERED: NALOXONE 0.4 MG/ML 1 ML VIAL IV PRN (17:23)
--- NOTE | 2021-12-08 17:28 | P.HPIM ---
History of Present Illness H&P Date: 12/08/21 Chief Complaint: chest pain 71-year-old man with history of COPD who presents with chest pain that is been going on for approximately 3-4 days. Pain is located in the right upper chest area. He feels the pain mainly when he coughs. He has been having increasing cough over his baseline. The cough is productive of some yellowish sputum. No hemoptysis. No fevers or chills. No shortness of breath more than usual. He has not noted fever or chills. He states that he use nebulizer treatment for COPD. He continues to smoke. Evaluation in the emergency department with chest x-ray showed right upper lobe infiltrates. He tested negative for Covid. Sodium was 128 and that is chronic. He has mild leukocytosis of 12.8. He was subsequently admitted for further treatment. Review of Systems Complete review of system was performed, negative except for what is stated in HPI Past Medical History Past Medical History: COPD, GERD/Reflux, Myocardial Infarction ([place]), Pneumonia, Vascular Disorder Additional Past Medical History / Comment(s): Bronchitis, past respiratory failure, PVD, pt states [place] per EKG, beginnings of bilateral cataracts. Last Myocardial Infarction Date:: 2009 per EKG History of Any Multi-Drug Resistant Organisms: None Reported Past Surgical History: Appendectomy Additional Past Surgical History / Comment(s): Endovascular aortic repair, L iliac stent, colonoscopy Past Anesthesia/Blood Transfusion Reactions: No Reported Reaction Past Psychological History: Anxiety, Depression Smoking Status: Current some day smoker Past Alcohol Use History: Occasional Past Drug Use History: None Reported - Past Family History Mother Family Medical History: Liver Disease Additional Family Medical History / Comment(s): liver cirrhosis Brother(s) Family Medical History: Vascular Disorder Father Family Medical History: Myocardial Infarction ([place]) Medications and Allergies Home Medications Medication Instructions Recorded Confirmed Type Omeprazole 20 mg PO DAILY 06/21/19 12/08/21 History Aspirin EC [Ecotrin Low Dose] 81 mg PO DAILY 12/11/19 12/08/21 History Allergies Allergy/AdvReac Type Severity Reaction Status Date / Time bee venom protein (honey bee) Allergy Unknown Verified 12/08/21 12:16 bupropion [From Wellbutrin] Allergy Unknown Verified 12/08/21 12:16 simvastatin [From Zocor] Allergy Unknown Verified 12/08/21 12:16 Physical Exam Vitals: Vital Signs Temp Pulse Pulse Resp BP BP Pulse Ox 12/08/21 08:23 84 12/08/21 08:11 84 12/08/21 07:00 97.9 F 82 16 101/62 95 12/08/21 06:24 87 113/70 95 12/08/21 04:34 93 17 116/75 12/08/21 04:29 98.3 F 100 19 103/67 96 Intake and Output 12/07/21 12/08/21 12/08/21 22:59 06:59 14:59 Intake Total 358 Balance 358 Intake: Oral 358 Other: Weight 77.111 kg Constitutional: No acute distress, conversant, pleasant Eyes:Anicteric sclerae, moist conjunctiva, no lid-lag, PERRLA, ENMT: Oropharynx clear, no erythema, exudates Neck: Supple, FROM, no masses, or JVD, No carotid bruits, No thyromegaly Lungs: Clear to auscultation, Clear to percussion, Normal respiratory effort, no accessory muscle use Cardiovascular: Heart regular in rate and rhythm, No murmurs, gallops, or rubs, No peripheral edema Abdominal: Soft, Nontender, no guarding, rebound or rigidity, Normoactive bowel sounds, No hepatomegaly, No splenomegaly, No palpable mass Skin: Normal temperature, tone, texture, turgor, no induration, No subcutaneous nodules, No rash, lesions, No ulcers Extremities: No digital cyanosis, No clubbing, Pedal pulses intact and symmetrical, Radial pulses intact and symmetrical, No calf tenderness Psychiatric: Alert and oriented to person, place and time, appropriate affect, intact judgement Neuro: Muscles Strength 5/5 in all 4 extremities, Sensation to light touch grossly present throughout, Cranial nerves II-XII grossly intact, no focal sensory deficits Results CBC & Chem 7: 12/08/21 04:36 12/08/21 04:36 Labs: Abnormal Lab Results - Last 24 Hours (Table) 12/08/21 12/08/21 Range/Units 04:36 04:36 WBC 12.8 H (3.8-10.6) k/uL Neutrophils # 10.8 H (1.3-7.7) k/uL Lymphocytes # 0.9 L (1.0-4.8) k/uL Sodium 128 L (137-145) mmol/L Carbon Dioxide 21 L (22-30) mmol/L Glucose 164 H (74-99) mg/dL Calcium 8.2 L (8.4-10.2) mg/dL Total Bilirubin 1.6 H (0.2-1.3) mg/dL ALT 66 H (4-49) U/L Alkaline Phosphatase 141 H (38-126) U/L Total Protein 5.7 L (6.3-8.2) g/dL Albumin 3.1 L (3.5-5.0) g/dL Thrombosis Risk Factor Assmnt - Choose All That Apply Each Risk Factor Represents 2 Points: Age 61-74 years Each Risk Factor Represents 3 Points: History of DVT/PE Thrombosis Risk Factor Assessment Total Risk Factor Score: 5 Thrombosis Risk Factor Assessment Level: High Risk Assessment and Plan Plan: Community-acquired pneumonia Continue DuoNeb No need for steroids as he is not wheezing IV antibiotics treatment ceftriaxone and azithromycin. Chest pain secondary to pneumonia Tylenol when necessary for pain Hyponatremia Sodium was low back in March Unclear etiology Check urine and plasma osmolalities and urine sodium Check TSH Peripheral vascular disease GERD Stable Resume meds Admit to observation Anticipate discharge in a.m.
[2021-12-08] MEDS ORDERED: MELATONIN 3 MG TABLET PO SCH (21:00)
[2021-12-09 02:41] VITALS: RESP 18
[2021-12-09] MEDS: SYMBICORT 160-4.5 MCG INHALER INHALATION SCH (05:44)
[2021-12-09] MEDS: IPRATROPIUM-ALBUTEROL 3 ML NEB INHALATION SCH ×2 (06:07→11:31)
[2021-12-09] MEDS: SODIUM CHLORIDE 0.9% 1,000 ML IV SCH (06:28)
[2021-12-09 08:07] VITALS: BP 121/68; TEMP 97.6
[2021-12-09] MEDS ORDERED: AZITHROMYCIN 500 MG TAB PO SCH (09:00)
[2021-12-09] MEDS: HEPARIN SODIUM,PORCINE/PF 5,000 UNIT/0.5 ML SYRINGE SQ SCH (09:14)
[2021-12-09] MEDS: ASPIRIN 81 MG PO SCH (09:15)
[2021-12-09] MEDS: PANTOPRAZOLE 40 MG TABLET PO SCH (09:15)
[2021-12-09 09:45] LABS: Basophils # (A) 0.05 X 10*3/uL (0.00-0.10); Basophils % (A) 0.5 %; Eosinophils # (A) 0.15 X 10*3/uL (0.04-0.35); Eosinophils % (A) 1.5 %; HCT 39.5 % (39.6-50.0); HGB 13.4 g/dL (13.0-17.0); Immature Grans, Automated 0.9 %; Lymphocytes # (A) 1.09 X 10*3/uL (0.90-5.00); Lymphocytes % (A) 10.9 %; MCH 32.8 pg (27.0-32.0); MCHC 33.9 g/dL (32.0-37.0); MCV 96.6 fL (80.0-97.0); Mean Platelet Volume 9.6 fL (9.5-12.2); Monocytes # (A) 0.94 X 10*3/uL (0.20-1.00); Monocytes % (A) 9.4 %; NRBC Per 100 WBC 0 /100 WBCS (0.0-0.0); Neutrophils # (A) 7.65 X 10*3/uL (1.80-7.70); Neutrophils % (A) 76.8 %; Platelet Count 243 X 10*3/uL (140-440); RBC 4.09 X 10*6/uL (4.40-5.60); RDW 13.7 % (11.5-14.5); WBC 9.97 X 10*3/uL (4.50-10.00)
[2021-12-09 09:58] LABS: African American GFR (CKD) 109.3 (60.0-200.0); Albumin 2.9 g/dL (3.8-4.9); Albumin/Globulin Ratio 1.32 (1.60-3.17); Anion Gap 10.5 mmol/L (10.00-18.00); Blood Urea Nitrogen 13.3 mg/dL (9.0-27.0); Calcium 8.2 mg/dL (8.7-10.3); Carbon Dioxide 21.5 mmol/L (20.0-27.5); Globulin 2.2 g/dL (1.6-3.3); Non-African American GFR(CKD) 94.3 (60.0-200.0); Potassium 4.4 mmol/L (3.5-5.5); Total Bilirubin 0.7 mg/dL (0.30-1.20); Total Protein 5.1 g/dL (6.2-8.2)
--- NOTE | 2021-12-09 11:30 | P.DS ---
Providers Date of admission: 12/08/21 05:44 Expected date of discharge: 12/09/21 Attending physician: Ness Franco MD Primary care physician: [facility] Hospital Course: Discharge Diagnosis: Community-acquired pneumonia, patient discharged home on doxycycline 100 mg by mouth twice daily 5 days to complete a 7 day course of antibiotics for community-acquired pneumonia. COPD, refills provided for Symbicort and albuterol nebulizer treatments as patient requested Hyponatremia, resolved Elevated liver enzymes, unclear if acute vs chronic, pt asymptomatic. Patient being discharged home with prescription to have labs rechecked in one week status post completion of antibiotic treatment. Results to [facility] follow-up and management. Peripheral vascular disease GERD Hospital Course: Patient is a very pleasant 71-year-old male with a past medical history of COPD, peripheral vascular disease and GERD. He presented to the emergency department on 12/08/21 with a chief complaint of chest pain with productive cough 3-4 days accompanied by mild shortness of breath. He was seen and fully evaluated. He was initially found to have leukocytosis with WBC count of 12.8 and hyponatremia with sodium of 128. In addition patient was noted to have a low osmolality of 272 and transaminitis with total bili of 1.6, AST 52, ALT is 66, and alkaline phosphatase of 141. Troponin normal at 0.013. TSH also normal at 1.930. Urine osmolality and urine sodium normal findings. Covid PCR was negative. Chest x- ray revealing right upper lobe pneumonia. EKG showing normal sinus rhythm and 96 bpm with no noted T-wave or ST abnormalities. Patient was started on IV antibiotics and admitted under our services. He underwent a 2 day hospital course with IV antibiotics azithromycin and Rocephin. Patient reports feeling significantly better and requesting discharge home. His leukocytosis and hyponatremia has resolved. Hyperbilirubinemia also resolved, however patient continues to have mild elevation of liver enzymes with AST of 37, and ALT of 62 with alkaline phosphatase of 148. He is ambulatory and room and hallway maintaining SpO2 92-96%. Patient denies having shortness of breath with ambulation and reports significant improvement in his cough. Patient's sputum culture was positive for gram-negative bacilli, patient being placed on doxycycline upon discharge. Blood culture showing no growth after 24 hours. patient medically stable at this time and being discharged home. Patient to follow-up with [facility] as advised. Patient also sent home with a prescription to have repeat CMP in 1 week for evaluation of liver enzymes. Results to be sent to PCP for follow-up and management. Physical examination: Patient seen and examined at bedside. Patient reports significantly feeling better this morning with improvement in cough and denies feeling short of breath with and without ambulation. Patient denies having any chest pain, palpitations, nausea, or experiencing any numbness/tingling/weakness in his extremities. Patient very fidgety and states he is ready to get out of here! P atient is showing no signs of acute distress and is medically stable for discharge at this time. Vital signs reviewed and stable. General: Nontoxic, no distress and appears stated age. Derm: Skin warm and dry, normal coloration for ethnicity. Head: Atraumatic, normocephalic and symmetric. Eyes: EOMs intact, no lid lag, and anicteric sclera Mouth: no lip lesions, mucus membranes moist Cardiovascular: regular rate and rhythm with normal S1S2, no murmur, positive posterior tibial pulses bilaterally, and cap refill < 2 seconds. Lungs: Respirations even, regular, and unlabored on room air. Lungs CTA bilaterally with the exception of soft expiratory wheezes in right mid and upper lung. No noted crackles, rales, or rhonchi noted. No accessory muscle usage. Abdominal: soft, nontender to palpation, no guarding, no appreciable organomegaly Ext: ROM intact. No gross muscle atrophy, no edema, no contractures Neuro: Speech clear, face symmetrical and CN II-XII grossly intact with no noted focal neuro deficits Psych: Alert and oriented to person, place, time, and situation. Appropriate and pleasant affect. A total of 38 minutes of time were spent preparing this complex discharge summary. Pt was discharged on 12/09/21 11:17 AM. Patient Condition at Discharge: Stable Plan - Discharge Summary Discharge Rx Participant: No New Discharge Prescriptions: New Budesonide-Formot 160-4.5 Mcg [Symbicort 160-4.5 Mcg Inhaler] 2 puff INHALATION RT-BID #1 gm Doxycycline [Vibramycin] 100 mg PO BID 5 Days #10 capsule Albuterol Nebulized [Ventolin Nebulized] 2.5 mg INHALATION RT-Q4H PRN 14 Days #1 pack PRN Reason: Shortness Of Breath Or Wheezing Continue Omeprazole 20 mg PO DAILY Aspirin EC [Ecotrin Low Dose] 81 mg PO DAILY Discharge Medication List Omeprazole 20 mg PO DAILY 06/21/19 [History] Aspirin EC [Ecotrin Low Dose] 81 mg PO DAILY 12/11/19 [History] Albuterol Nebulized [Ventolin Nebulized] 2.5 mg INHALATION RT-Q4H PRN 14 Days #1 pack 12/09/21 [Rx] Budesonide-Formot 160-4.5 Mcg [Symbicort 160-4.5 Mcg Inhaler] 2 puff INHALATION RT-BID #1 gm 12/09/21 [Rx] Doxycycline [Vibramycin] 100 mg PO BID 5 Days #10 capsule 12/09/21 [Rx] Follow up Appointment(s)/Referral(s): [facility],Clinic [Primary Care Provider] - 1-2 days Ambulatory/Diagnostic Orders: Comprehensive Metabolic Panel [LAB.AMB] Time Frame: 1 Week, Location: None Selected Patient Instructions/Handouts: Community Acquired Pneumonia ([place]) Activity/Diet/Wound Care/Special Instructions: Activity: As tolerated. Take breaks as needed. Diet: Heart healthy and carb consistent diet. Avoid salts, or foods with hidden salts such as canned or boxed foods and frozen dinners. Extra salt makes your heart work harder and traps the fluid in your body for longer. Special Instructions: Take all of your medications as directed and remember to keep all of your doctor's appointments and follow-up as needed. Throughout your two days of hospitalization, you have had mild elevation of your liver enzymes. This is possibly secondary to your acute illness or chronic in nature (as it has been over a year since labs were drawn with [facility]) however, this could also represent other underlying issues. I have provided you with a prescription to have your liver enzymes rechecked in one week status post completion of your antibiotics for current infection. These results will be sent to [facility] for follow up. It is important to follow up with these results as additional testing may be warranted. Thank you for allowing us to participate in your care, it was truly a pleasure having you for our patient!!! Discharge Disposition: HOME SELF-CARE Pending Studies Pending Results: This documentation was completed by the Nurse Practitioner. History, physical examination including assessment and plan were only completed by Nurse Practitioner and was NOT evaluated by myself the attending physician including all plan of care including discharge planning and documentation. I did NOT participate or have any communication regarding the patient, including orders, imaging, diagnostic work up, consultations, communication with registered RN/lab animal technician and discharge planning/instructions. I will be co-signing this documentation as this is a requirement per [facility] [facility] and agreement.
[2021-12-09 11:46] VITALS: PULSE 85
== END 2021-12-09 11:50 | disposition home or self-care (01) ==
LOC: EC 04:25 → 6NMEDSUR 05:44
PROVIDERS: ADMIT Internal Medicine; ATTEND Internal Medicine
DX: J18.9 Pneumonia, unspecified organism (principal); J44.0 Chronic obstructive pulmonary disease with (acute) lower respiratory infection; Z20.822 Contact with and (suspected) exposure to COVID-19; E87.1 Hypo-osmolality and hyponatremia; R17 Unspecified jaundice; F17.200 Nicotine dependence, unspecified, uncomplicated; I25.2 Old myocardial infarction; R74.8 Abnormal levels of other serum enzymes; I73.9 Peripheral vascular disease, unspecified; K21.9 Gastro-esophageal reflux disease without esophagitis; F41.9 Anxiety disorder, unspecified; F32.A Depression, unspecified; H26.9 Unspecified cataract; Z79.899 Other long term (current) drug therapy; Z91.030 Bee allergy status; Z88.1 Allergy status to other antibiotic agents; Z88.8 Allergy status to other drugs, medicaments and biological substances; Z71.3 Dietary counseling and surveillance; Z79.51 Long term (current) use of inhaled steroids; Z79.82 Long term (current) use of aspirin; Z90.49 Acquired absence of other specified parts of digestive tract; Z82.49 Family history of ischemic heart disease and other diseases of the circulatory system; Z83.79 Family history of other diseases of the digestive system
CPT/HCPCS: 99285; 96361 ×2; 96365; 96366; 96372; 36415; 94640 ×4; 93005; 84300; 83930; 80053 ×2; 84443; 83735; 84484; 85025 ×2; 85610; 85730; 83935; 87040; 87070; 87205; 87077; 87186; 87635; 71046; G0378 ×2; J0456; J0696 ×2; J1644

== ENCOUNTER → 2022-03-05 | Outpatient (CLI) | payer OTHER ==
[2022-03-05 10:49] LABS: African American GFR (CKD) >90 (>60 ml/min/1.73 sqM); Blood Urea Nitrogen 12 mg/dL (9-20); Non-African American GFR(CKD) >90 (>60 ml/min/1.73 sqM)
--- NOTE | 2022-03-05 13:01 | CT ---
EXAMINATION TYPE: CT chest w con CT DLP: 278.6 mGycm, Automated exposure control for dose reduction was used. DATE OF EXAM: 03/05/2022 11:14 AM COMPARISON: Chest radiograph 12/08/2021, CTA abdomen and pelvis 08/15/2019. CLINICAL INDICATION:Male, 71 years old with history of R91.8 ABNORMAL FINDING OF LUNG FIELD; PHH, Abn ormal chest x-ray TECHNIQUE: Multiple axial images were obtained through the chest following the administration of 70 c c of Isovue 300. Coronal and sagittal reformats reviewed. FINDINGS: LUNGS/ PLEURA: No pneumothorax, pleural effusion, focal consolidation. Right apical spiculated mass m easuring 4.4 x 3.0 cm (series 4, image 11). There is associated bronchiectasis. Additional spiculated density measuring 9 mm along the right major fissure in the right apex (series 4, image 19). Stable left lower lobe 6 number pulmonary nodule dating back to 2019 (series 4, image 48). Mild centrilobula r emphysematous changes. AIRWAY: Patent and unremarkable. HEART: Size within normal limits. No pericardial effusion. Coronary artery calcifications.. MEDIASTINUM/HILUM: No pathologic adenopathy. VASCULATURE: Ascending thoracic aortic aneurysm measuring up to 4.2 cm. Aortic root measures up to 4 .0 cm. Descending thoracic aorta measures up to 3.3 cm. Atherosclerotic calcification of the aorta an d its branches. MUSCULOSKELETAL: Chronic appearing anterior wedge compression deformities of the T7 and L1 vertebral bodies without evidence of retropulsion. The L1 vertebral body compression deformity has progressed f rom 2019 examination. This demonstrates approximately 50% height loss. Remote right-sided rib fractur es. No aggressive osseous lesions. SOFT TISSUES/LYMPH NODES: Unremarkable. LOWER NECK: No significant findings. UPPER ABDOMEN: The esophagus is patulous. Partial visualization of abdominal aortic stent graft. Part ial visualization of stable right renal 3.0 cm cyst IMPRESSION: 1. Right apical spiculated mass measuring up to 4.4 cm. Additional spiculated density along the right major fissure in the right apex. Findings concerning for primary lung malignancy. Further evaluation is recommended with direct sampling. 2. Mild COPD changes. 3. Ascending thoracic aorta aneurysm measuring up to 4.2 cm. 4. Chronic appearing wedge compression deformity is of the T7 and L1 vertebral bodies without evidenc e of retropulsion. L1 compression deformity has progressed from 2020 exam. Correlation with point ten derness is recommended.
== END | disposition home or self-care (01) ==
LOC: RADCTMAIN 09:59
DX: R91.8 Other nonspecific abnormal finding of lung field (principal); J44.9 Chronic obstructive pulmonary disease, unspecified; I71.4 Abdominal aortic aneurysm, without rupture
CPT/HCPCS: 82565; 84520; 71260; 36415; Q9967

== ENCOUNTER 2022-07-15 15:47 | Inpatient (IN) | payer OTHER, MEDICARE ==
[2022-07-15] MEDS ORDERED: ALBUTEROL NEBULIZED 2.5 MG/3 ML INHALATION STA (16:21)
[2022-07-15] MEDS ORDERED: IPRATROPIUM 0.5 MG/2.5 ML NEBU INHALATION STA (16:21)
[2022-07-15] MEDS ORDERED: methylPREDNISolone SOD SUCCI 125 MG/2 ML VIAL IV STA (16:21)
--- NOTE | 2022-07-15 16:36 | ED ---
General Adult HPI - General Chief complaint: Shortness of Breath Stated complaint: sob Time Seen by Provider: 07/15/22 15:50 Source: patient, RN notes reviewed, old records reviewed Mode of arrival: EMS - History of Present Illness Initial comments: This is a 72-year-old male who presents emergency Department with a past medical history significant for COPD. Patient continues to smoke. Patient states the last 3 days he has been getting worse and worse cough. Patient also states his shortness of breath is getting exceedingly worse. Patient denies any chest pain patient denies palpitations. Patient denies abdominal pain patient denies nausea vomiting diarrhea. Patient denies any fever chills per patient denies headache patient denies numbness weakness. Patient denies lightheadedness or dizziness per patient denies any swelling to the legs or calf tenderness. - Related Data Home Medications Medication Instructions Recorded Confirmed Omeprazole 20 mg PO DAILY 06/21/19 12/08/21 Aspirin EC [Ecotrin Low Dose] 81 mg PO DAILY 12/11/19 12/08/21 Previous Rx's Medication Instructions Recorded Albuterol Nebulized [Ventolin 2.5 mg INHALATION RT-Q4H PRN 14 12/09/21 Nebulized] Days #1 pack Budesonide-Formot 160-4.5 Mcg 2 puff INHALATION RT-BID #1 gm 12/09/21 [Symbicort 160-4.5 Mcg Inhaler] Doxycycline [Vibramycin] 100 mg PO BID 5 Days #10 capsule 12/09/21 Amoxic-Pot Clav 875-125Mg 1 tab PO Q12HR 1 Days #20 tab 03/12/22 [Augmentin 875-125] predniSONE 50 mg PO DAILY #5 tab 03/12/22 methylPREDNISolone [Medrol Dose 4 mg PO DIRECTED #1 packet 03/23/22 Pack] Allergies Allergy/AdvReac Type Severity Reaction Status Date / Time bee venom protein (honey bee) Allergy Unknown Verified 07/15/22 16:01 bupropion [From Wellbutrin] Allergy Unknown Verified 07/15/22 16:01 simvastatin [From Zocor] Allergy Unknown Verified 07/15/22 16:01 Review of Systems ROS Statement: Those systems with pertinent positive or pertinent negative responses have been documented in the HPI. ROS Other: All systems not noted in ROS Statement are negative. Past Medical History Past Medical History: COPD, GERD/Reflux, Myocardial Infarction ([place]), Pneumonia, Vascular Disorder Additional Past Medical History / Comment(s): Bronchitis, past respiratory failure, PVD, pt states [place] per EKG, beginnings of bilateral cataracts. Mass on lung Last Myocardial Infarction Date:: 2009 per EKG History of Any Multi-Drug Resistant Organisms: None Reported Past Surgical History: Appendectomy Additional Past Surgical History / Comment(s): Endovascular aortic repair, L iliac stent, colonoscopy Past Anesthesia/Blood Transfusion Reactions: No Reported Reaction Past Psychological History: Anxiety, Depression Smoking Status: Current every day smoker Past Alcohol Use History: Occasional Past Drug Use History: None Reported - Past Family History Mother Family Medical History: Liver Disease Additional Family Medical History / Comment(s): liver cirrhosis Brother(s) Family Medical History: Vascular Disorder Father Family Medical History: Myocardial Infarction ([place]) General Exam - General Exam Comments Initial Comments: GENERAL: Patient is well-developed and well-nourished. Patient is nontoxic and well- hydrated and is in moderate distress. ENT: Neck is soft and supple. No significant lymphadenopathy is noted. Oropharynx is clear. Moist mucous membranes. Neck has full range of motion without eliciting any pain. EYES: The sclera were anicteric and conjunctiva were pink and moist. Extraocular movements were intact and pupils were equal round and reactive to light. Eyelids were unremarkable. PULMONARY: Patient has diffuse extra wheezing. CARDIOVASCULAR: There is a regular rate and rhythm without any murmurs gallops or rubs. ABDOMEN: Soft and nontender with normal bowel sounds. SKIN: Skin is clear with no lesions or rashes and otherwise unremarkable. NEUROLOGIC: Patient is alert and oriented x3. Cranial nerves II through XII are grossly intact. Motor and sensory are also intact. Normal speech, volume and content. Symmetrical smile. MUSCULOSKELETAL: Normal extremities with adequate strength and full range of motion. No lower extremity swelling or edema. No calf tenderness. LYMPHATICS: No significant lymphadenopathy is noted PSYCHIATRIC: Normal psychiatric evaluation. Course Vital Signs 07/15/22 07/15/22 15:52 17:06 Temperature 97 F L Pulse Rate 104 H 104 H Respiratory 24 Rate Blood Pressure 142/94 O2 Sat by Pulse 96 Oximetry Medical Decision Making - Medical Decision Making EKG was interpreted by me. EKG shows sinus tachycardia at 102 bpm MI was 210 QRS is 94 QT interval 344 QTC is 44 per patient's EKG shows no ST segment or depression. Chest x-ray was interpreted by me. Chest x-ray shows no acute abnormality. Patient was given Rocephin because of her consistent cough and a history of severe COPD. Patient received multiple breathing treatments in the emergency department and Solu-Medrol patient continued to wheeze diffusely. I spoke with Dr. Ramirez she agreed to admit the patient admitted the patient regarding her to continue albuterol steroids on the floor. - Lab Data Result diagrams: 07/15/22 16:44 07/15/22 16:44 Lab Results 07/15/22 07/15/22 07/15/22 Range/Units 16:44 16:44 16:44 WBC 8.0 (3.8-10.6) k/uL RBC 4.37 (4.30-5.90) m/uL Hgb 14.7 (13.0-17.5) gm/dL Hct 43.2 (39.0-53.0) % MCV 98.9 (80.0-100.0) fL MCH 33.7 (25.0-35.0) pg MCHC 34.1 (31.0-37.0) g/dL RDW 12.7 (11.5-15.5) % Plt Count 218 (150-450) k/uL MPV 7.4 Neutrophils % 54 % Lymphocytes % 23 % Monocytes % 6 % Eosinophils % 14 % Basophils % 1 % Neutrophils # 4.3 (1.3-7.7) k/uL Lymphocytes # 1.8 (1.0-4.8) k/uL Monocytes # 0.5 (0-1.0) k/uL Eosinophils # 1.1 H (0-0.7) k/uL Basophils # 0.1 (0-0.2) k/uL PT 10.0 (9.0-12.0) sec INR 0.9 (<1.2) APTT 27.1 (22.0-30.0) sec Sodium 138 (137-145) mmol/L Potassium 4.2 (3.5-5.1) mmol/L Chloride 110 H (98-107) mmol/L Carbon Dioxide 22 (22-30) mmol/L Anion Gap 6 mmol/L BUN 7 L (9-20) mg/dL Creatinine 0.62 L (0.66-1.25) mg/dL Est GFR (CKD-EPI)AfAm >90 (>60 ml/min/1.73 sqM) Est GFR (CKD-EPI)NonAf >90 (>60 ml/min/1.73 sqM) Glucose 89 (74-99) mg/dL Plasma Lactic Acid Jae (0.7-2.0) mmol/L Calcium 9.0 (8.4-10.2) mg/dL Magnesium 1.9 (1.6-2.3) mg/dL Total Bilirubin 0.4 (0.2-1.3) mg/dL AST 20 (17-59) U/L ALT 17 (4-49) U/L Alkaline Phosphatase 66 (38-126) U/L Troponin I (0.000-0.034) ng/mL Total Protein 6.2 L (6.3-8.2) g/dL Albumin 3.7 (3.5-5.0) g/dL 07/15/22 07/15/22 Range/Units 16:44 16:44 WBC (3.8-10.6) k/uL RBC (4.30-5.90) m/uL Hgb (13.0-17.5) gm/dL Hct (39.0-53.0) % MCV (80.0-100.0) fL MCH (25.0-35.0) pg MCHC (31.0-37.0) g/dL RDW (11.5-15.5) % Plt Count (150-450) k/uL MPV Neutrophils % % Lymphocytes % % Monocytes % % Eosinophils % % Basophils % % Neutrophils # (1.3-7.7) k/uL Lymphocytes # (1.0-4.8) k/uL Monocytes # (0-1.0) k/uL Eosinophils # (0-0.7) k/uL Basophils # (0-0.2) k/uL PT (9.0-12.0) sec INR (<1.2) APTT (22.0-30.0) sec Sodium (137-145) mmol/L Potassium (3.5-5.1) mmol/L Chloride (98-107) mmol/L Carbon Dioxide (22-30) mmol/L Anion Gap mmol/L BUN (9-20) mg/dL Creatinine (0.66-1.25) mg/dL Est GFR (CKD-EPI)AfAm (>60 ml/min/1.73 sqM) Est GFR (CKD-EPI)NonAf (>60 ml/min/1.73 sqM) Glucose (74-99) mg/dL Plasma Lactic Acid Jae 1.2 (0.7-2.0) mmol/L Calcium (8.4-10.2) mg/dL Magnesium (1.6-2.3) mg/dL Total Bilirubin (0.2-1.3) mg/dL AST (17-59) U/L ALT (4-49) U/L Alkaline Phosphatase (38-126) U/L Troponin I <0.012 (0.000-0.034) ng/mL Total Protein (6.3-8.2) g/dL Albumin (3.5-5.0) g/dL Critical Care Time Critical Care Time: Yes Total Critical Care Time: 35 Disposition Clinical Impression: Acute exacerbation of chronic obstructive pulmonary disease (COPD), Bronchitis Disposition: ADMITTED IP TO THIS HOSP Referrals: [facility],Clinic [Primary Care Provider] - 1-2 days Time of Disposition: 18:01
[2022-07-15 16:54] LABS: Basophils # (A) 0.1 k/uL (0-0.2); Basophils % (A) 1 %; Eosinophils # (A) 1.1 k/uL (0-0.7); Eosinophils % (A) 14 %; HCT 43.2 % (39.0-53.0); HGB 14.7 gm/dL (13.0-17.5); Lymphocytes # (A) 1.8 k/uL (1.0-4.8); Lymphocytes % (A) 23 %; MCH 33.7 pg (25.0-35.0); MCHC 34.1 g/dL (31.0-37.0); MCV 98.9 fL (80.0-100.0); Mean Platelet Volume 7.4; Monocytes # (A) 0.5 k/uL (0-1.0); Monocytes % (A) 6 %; Neutrophils # (A) 4.3 k/uL (1.3-7.7); Neutrophils % (A) 54 %; Platelet Count 218 k/uL (150-450); RBC 4.37 m/uL (4.30-5.90); RDW 12.7 % (11.5-15.5)
--- NOTE | 2022-07-15 17:09 | XR ---
EXAMINATION TYPE: XR chest 2V DATE OF EXAM: 07/15/2022 COMPARISON: Chest x-ray March 23, 2022 HISTORY: Shortness of breath. TECHNIQUE: Frontal and lateral views of the chest are obtained. FINDINGS: There is mild cardiomegaly with small to tiny right pleural effusion. No suspicious focal airspace opacity. The osseous structures are intact. IMPRESSION: Mild cardiomegaly with small to tiny right pleural effusion.
[2022-07-15 17:11] LABS: INR 0.9 (<1.2); Partial Thromboplastin Time 27.1 sec (22.0-30.0)
[2022-07-15 17:12] LABS: ALT 17 U/L (4-49); AST 20 U/L (17-59); African American GFR (CKD) >90 (>60 ml/min/1.73 sqM); Albumin 3.7 g/dL (3.5-5.0); Alkaline Phosphatase 66 U/L (38-126); Anion Gap 6 mmol/L; Blood Urea Nitrogen 7 mg/dL (9-20); Carbon Dioxide 22 mmol/L (22-30); Chloride 110 mmol/L (98-107); Glucose 89 mg/dL (74-99); Magnesium 1.9 mg/dL (1.6-2.3); Non-African American GFR(CKD) >90 (>60 ml/min/1.73 sqM); Potassium 4.2 mmol/L (3.5-5.1); Sodium 138 mmol/L (137-145); Total Bilirubin 0.4 mg/dL (0.2-1.3); Total Protein 6.2 g/dL (6.3-8.2)
[2022-07-15] MEDS ORDERED: NALOXONE 0.4 MG/ML 1 ML VIAL IVP PRN (18:02)
[2022-07-15] MEDS: IPRATROPIUM-ALBUTEROL 3 ML NEB INHALATION SCH (18:54)
[2022-07-15] MEDS ORDERED: AMOXIC-POT CLAV 875-125MG 1 EACH TAB PO SCH (21:00)
[2022-07-15] MEDS: methylPREDNISolone SOD SUCCI 125 MG/2 ML VIAL IV SCH (23:41)
[2022-07-15] MEDS ORDERED: IPRATROPIUM-ALBUTEROL 3 ML NEB INHALATION PRN (23:53)
--- NOTE | 2022-07-15 23:54 | P.HPIM ---
History of Present Illness H&P Date: 07/15/22 The patient is a 72-year-old male with a PMH of COPD who presents to the emergency room with complaints of gradually worsening shortness of breath with increased cough. Patient reports that his symptoms started roughly 3 days ago with cough immediately worse from baseline productive of white and care phlegm. He denied experiencing fever or chills. Also denied chest pain, nausea, vomiting, diaphoresis. Denied lower extremity swelling or pain. Reports attempting to use his nebulizer at home 10-15 times earlier in the day without much relief. Reports that his shortness of breath has improved significantly after medications received in the emergency room. Chest x-ray in the emergency room mild cardiomegaly with small to tiny right pleural effusion. EKG revealed sinus tachycardia with first-degree AV block at 102 bpm with poor R-wave progression. Review of systems: Pertinent positives and negatives as discussed in HPI, a complete review of systems was performed and all other systems are negative. Physical examination: General: non toxic, no distress, appears at stated age, normal weight Derm: no unusual rashes/lesions, warm Head: atraumatic, normocephalic, symmetric Eyes: EOMI, no lid lag, anicteric sclera, pupils equal round reactive to light ENT: Nose and ears atraumatic Neck: No cervical lymphadenopathy, trachea midline, supple Mouth: no lip lesion, mucus membranes moist Cardiovascular: S1S2 reg, no murmur, positive dorsalis pedis pulse bilateral, no edema Lungs: Diffuse expiratory wheezing noted, no rales or rhonchi, no accessory muscle use Abdominal: soft, nontender to palpation, no guarding Ext: muscle strength 5 out of 5 in all 4 extremities grossly, no gross muscle atrophy, no contractures, Neuro: CN II-XI grossly intact, no gross focal neuro deficits Psych: Alert, oriented, appropriate affect Assessment/plan Acute COPD exacerbation -Continue with Solumedrol -DuoNeb's -Obtain pro-calcitonin levels -Low suspicion for pneumonia -Hold off on antibiotics at this time DVT prophylaxis -Heparin subq The patient is admitted with an anticipated greater than 2 midnight stay for evaluation of acute COPD exacerbation CODE STATUS: Full Code Discussed with: Patient Anticipated discharge date: 2-[address]: Home Past Medical History Past Medical History: COPD, GERD/Reflux, Myocardial Infarction ([place]), Pneumonia, Vascular Disorder Additional Past Medical History / Comment(s): Bronchitis, past respiratory failure, PVD, pt states [place] per EKG, beginnings of bilateral cataracts. Mass on lung Last Myocardial Infarction Date:: 2009 per EKG History of Any Multi-Drug Resistant Organisms: None Reported Past Surgical History: Appendectomy Additional Past Surgical History / Comment(s): Endovascular aortic repair, L iliac stent, colonoscopy Past Anesthesia/Blood Transfusion Reactions: No Reported Reaction Past Psychological History: Anxiety, Depression Smoking Status: Current every day smoker Past Alcohol Use History: Occasional Past Drug Use History: None Reported - Past Family History Mother Family Medical History: Liver Disease Additional Family Medical History / Comment(s): liver cirrhosis Brother(s) Family Medical History: Vascular Disorder Father Family Medical History: Myocardial Infarction ([place]) Medications and Allergies Home Medications Medication Instructions Recorded Confirmed Type Omeprazole 20 mg PO DAILY 06/21/19 07/15/22 History Aspirin EC [Ecotrin Low Dose] 81 mg PO DAILY 12/11/19 07/15/22 History Allergies Allergy/AdvReac Type Severity Reaction Status Date / Time bee venom protein (honey bee) Allergy Unknown Verified 07/15/22 18:36 bupropion [From Wellbutrin] Allergy Unknown Verified 07/15/22 18:36 simvastatin [From Zocor] Allergy Unknown Verified 07/15/22 18:36 Physical Exam Vitals: Vital Signs Temp Pulse Pulse Resp BP BP Pulse Ox 07/15/22 19:58 97.3 F L 83 18 147/87 94 L 07/15/22 18:37 98.1 F 100 20 148/77 96 07/15/22 17:06 104 H 07/15/22 15:52 97 F L 104 H 24 142/94 96 Intake and Output 07/15/22 07/15/22 07/15/22 06:59 14:59 22:59 Other: Weight 77.111 kg Results CBC & Chem 7: 07/15/22 16:44 07/15/22 16:44 Labs: Abnormal Lab Results - Last 24 Hours (Table) 07/15/22 07/15/22 Range/Units 16:44 16:44 Eosinophils # 1.1 H (0-0.7) k/uL Chloride 110 H (98-107) mmol/L BUN 7 L (9-20) mg/dL Creatinine 0.62 L (0.66-1.25) mg/dL Total Protein 6.2 L (6.3-8.2) g/dL
[2022-07-16] MEDS: HEPARIN SODIUM,PORCINE/PF 5,000 UNIT/0.5 ML SYRINGE SQ SCH ×2 (00:09→08:15)
[2022-07-16 03:01] VITALS: PULSE 82
[2022-07-16] MEDS: methylPREDNISolone SOD SUCCI 125 MG/2 ML VIAL IV SCH (06:40)
[2022-07-16] MEDS ORDERED: PANTOPRAZOLE 40 MG TABLET PO SCH (07:30)
[2022-07-16 08:14] VITALS: BP 150/84; RESP 16; TEMP 97.6
[2022-07-16] MEDS: IPRATROPIUM-ALBUTEROL 3 ML NEB INHALATION SCH (08:37)
[2022-07-16] MEDS ORDERED: ASPIRIN 81 MG PO SCH (09:00)
--- NOTE | 2022-07-16 09:04 | P.DS ---
Providers Date of admission: 07/15/22 18:02 Expected date of discharge: 07/16/22 Attending physician: Praveena Ramirez DO Primary care physician: [facility] Hospital Course: The patient is a 72-year-old male with a PMH of COPD who presents to the emergency room with complaints of gradually worsening shortness of breath with increased cough. Patient reports that his symptoms started roughly 3 days ago with cough immediately worse from baseline productive of white and care phlegm. He denied experiencing fever or chills. Also denied chest pain, nausea, vomiting, diaphoresis. Denied lower extremity swelling or pain. Reports at tempting to use his nebulizer at home 10-15 times earlier in the day without much relief. Reports that his shortness of breath has improved significantly after medications received in the emergency room. Chest x-ray in the emergency room mild cardiomegaly with small to tiny right pleural effusion. EKG revealed sinus tachycardia with first-degree AV block at 102 bpm with poor R-wave progression. Patient left against medical advise prior to being seen. Pertinent studies include chest x-ray. Discharge diagnosis: #Acute COPD exacerbation Patient Condition at Discharge: Undetermined Plan - Discharge Summary Discharge Rx Participant: Yes New Discharge Prescriptions: No Action Omeprazole 20 mg PO DAILY Aspirin EC [Ecotrin Low Dose] 81 mg PO DAILY Discharge Medication List Omeprazole 20 mg PO DAILY 06/21/19 [History] Aspirin EC [Ecotrin Low Dose] 81 mg PO DAILY 12/11/19 [History] Follow up Appointment(s)/Referral(s): [facility],Clinic [Primary Care Provider] - 1-2 days Discharge Disposition: Left Against Medical Advice
== END 2022-07-16 08:25 | disposition left against medical advice (07) | DRG 192 ==
LOC: EC 15:47 → 4SSUR 18:02
PROVIDERS: ADMIT Internal Medicine; ATTEND Internal Medicine
DX: J44.1 Chronic obstructive pulmonary disease with (acute) exacerbation (principal); F17.210 Nicotine dependence, cigarettes, uncomplicated; R00.0 Tachycardia, unspecified; I44.0 Atrioventricular block, first degree; I51.7 Cardiomegaly; Z53.21 Procedure and treatment not carried out due to patient leaving prior to being seen by health care provider; Z95.820 Peripheral vascular angioplasty status with implants and grafts; Z79.82 Long term (current) use of aspirin; Z79.899 Other long term (current) drug therapy; Z79.51 Long term (current) use of inhaled steroids; Z79.52 Long term (current) use of systemic steroids; Z91.030 Bee allergy status; Z88.8 Allergy status to other drugs, medicaments and biological substances; I25.2 Old myocardial infarction; Z28.310 Unvaccinated for COVID-19
CPT/HCPCS: 36415; 71046; 80053; 83605; 83735; 84145; 84484; 85025; 85610; 85730; 87040; 93005; 94640; 96374; 96375; 99291

== ENCOUNTER 2022-10-12 17:34 | Inpatient (IN) | payer MEDICARE, OTHER ==
[2022-10-12] MEDS ORDERED: methylPREDNISolone SOD SUCCI 125 MG/2 ML VIAL IV STA (18:00)
[2022-10-12] MEDS ORDERED: MAGNESIUM SULFATE-D5W PMX 1 GM in DEXTROSE/WATER 1 100ML.BAG IVPB ONE (18:01)
[2022-10-12] MEDS ORDERED: ALBUTEROL NEBULIZED 2.5 MG/3 ML INHALATION STA (18:05)
[2022-10-12] MEDS ORDERED: IPRATROPIUM-ALBUTEROL 3 ML NEB INHALATION STA (18:05)
[2022-10-12 18:50] LABS: Basophils # (A) 0.1 k/uL (0-0.2); Basophils % (A) 1 %; Eosinophils # (A) 1.1 k/uL (0-0.7); Eosinophils % (A) 15 %; HCT 44.2 % (39.0-53.0); HGB 14.9 gm/dL (13.0-17.5); Lymphocytes # (A) 2.1 k/uL (1.0-4.8); Lymphocytes % (A) 30 %; MCH 33.3 pg (25.0-35.0); MCHC 33.7 g/dL (31.0-37.0); MCV 98.6 fL (80.0-100.0); Mean Platelet Volume 7.1; Monocytes # (A) 0.4 k/uL (0-1.0); Monocytes % (A) 6 %; Neutrophils # (A) 3.2 k/uL (1.3-7.7); Neutrophils % (A) 45 %; Platelet Count 184 k/uL (150-450); RBC 4.49 m/uL (4.30-5.90); RDW 13.2 % (11.5-15.5); WBC 7.1 k/uL (3.8-10.6)
[2022-10-12 19:01] LABS: ALT 41 U/L (4-49); AST 32 U/L (17-59); African American GFR (CKD) >90 (>60 ml/min/1.73 sqM); Alkaline Phosphatase 52 U/L (38-126); Anion Gap 8 mmol/L; Blood Urea Nitrogen 7 mg/dL (9-20); Calcium 8.8 mg/dL (8.4-10.2); Carbon Dioxide 20 mmol/L (22-30); Chloride 106 mmol/L (98-107); Glucose 85 mg/dL (74-99); Non-African American GFR(CKD) 82 (>60 ml/min/1.73 sqM); Potassium 4.4 mmol/L (3.5-5.1); Sodium 134 mmol/L (137-145); Total Bilirubin 0.6 mg/dL (0.2-1.3); Total Protein 6.3 g/dL (6.3-8.2)
[2022-10-12 19:07] LABS: Partial Thromboplastin Time 26.1 sec (22.0-30.0); Prothrombin Time 10.3 sec (9.0-12.0)
--- NOTE | 2022-10-12 19:07 | XR ---
EXAMINATION TYPE: XR chest 2V DATE OF EXAM: 10/12/2022 COMPARISON: 09/10/2022 HISTORY: Short of breath TECHNIQUE: 2 views FINDINGS: There is no heart failure nor confluent pneumonic infiltrate. Bony thorax is intact. No ple ural effusion. There are chest leads. There is pleural thickening right lung apex. IMPRESSION: There are some pleural and pulmonary scarring right upper lobe without change. Normal hea rt.
--- NOTE | 2022-10-12 19:44 | ED ---
SOB HPI - General Chief Complaint: Shortness of Breath Stated Complaint: LIAT Time Seen by Provider: 10/12/22 17:45 Source: patient Mode of arrival: ambulatory Limitations: no limitations - History of Present Illness Initial Comments: 72-year-old male with past history of COPD who still smokes presents to the emergency department with shortness of breath. States that for the past couple of days he has had worsening shortness of breath. He has to sleep in a chair to sleep or else he will wake up gasping for air. He does not wear oxygen at home. He does have a nebulizer and states that he took approximately 9-10 treatments. He denies any fevers or chills. Does admit to a productive cough. No sick contacts with similar symptoms. Denies any chest pain. Takes chronic steroids and follows with Dr. Pollock. No hemoptysis. No history of cardiac issues. No other alleviating, precipitating or modifying factors - Related Data Home Medications Medication Instructions Recorded Confirmed Omeprazole 20 mg PO DAILY 06/21/19 10/12/22 Aspirin EC [Ecotrin Low Dose] 81 mg PO DAILY 12/11/19 10/12/22 predniSONE 5 mg PO DAILY 10/12/22 10/12/22 Allergies Allergy/AdvReac Type Severity Reaction Status Date / Time bee venom protein (honey bee) Allergy Unknown Verified 10/12/22 19:05 bupropion [From Wellbutrin] Allergy Unknown Verified 10/12/22 19:05 simvastatin [From Zocor] Allergy Unknown Verified 10/12/22 19:05 Review of Systems ROS Statement: Those systems with pertinent positive or pertinent negative responses have been documented in the HPI. ROS Other: All systems not noted in ROS Statement are negative. Past Medical History Past Medical History: COPD, GERD/Reflux, Myocardial Infarction (NV), Pneumonia, Vascular Disorder Additional Past Medical History / Comment(s): Bronchitis, past respiratory failure, PVD, pt states NV per EKG, beginnings of bilateral cataracts. Mass on lung Last Myocardial Infarction Date:: 2009 per EKG History of Any Multi-Drug Resistant Organisms: None Reported Past Surgical History: Appendectomy Additional Past Surgical History / Comment(s): Endovascular aortic repair, L iliac stent, colonoscopy Past Anesthesia/Blood Transfusion Reactions: No Reported Reaction Past Psychological History: Anxiety, Depression Smoking Status: Current every day smoker Past Alcohol Use History: Occasional Past Drug Use History: None Reported - Past Family History Mother Family Medical History: Liver Disease Additional Family Medical History / Comment(s): liver cirrhosis Brother(s) Family Medical History: Vascular Disorder Father Family Medical History: Myocardial Infarction (NV) General Exam Limitations: no limitations General appearance: alert, in no apparent distress Head exam: Present: atraumatic, normocephalic, normal inspection Eye exam: Present: normal appearance, PERRL, EOMI. Absent: scleral icterus, conjunctival injection, periorbital swelling ENT exam: Present: normal exam, mucous membranes moist Neck exam: Present: normal inspection. Absent: tenderness, meningismus, lymphadenopathy Respiratory exam: Present: respiratory distress, wheezes, accessory muscle use, decreased breath sounds, other (tachypnia). Absent: rales, rhonchi, stridor Cardiovascular Exam: Present: regular rate, normal rhythm, normal heart sounds. Absent: systolic murmur, diastolic murmur, rubs, gallop, clicks GI/Abdominal exam: Present: soft, normal bowel sounds. Absent: distended, tenderness, guarding, rebound, rigid Extremities exam: Present: normal inspection, full ROM, normal capillary refill. Absent: tenderness, pedal edema, joint swelling, calf tenderness Back exam: Present: normal inspection Neurological exam: Present: alert, oriented X3, CN II-XII intact Psychiatric exam: Present: normal affect, normal mood Skin exam: Present: warm, dry, intact, normal color. Absent: rash Course Vital Signs 10/12/22 10/12/22 10/12/22 17:41 18:18 18:28 Temperature 98.2 F Pulse Rate 90 80 75 Pulse Rate [ Right Supine Pulse Oximetery ] Respiratory 26 H 19 Rate Blood Pressure 180/92 161/89 Blood Pressure [Right Arm Supine] O2 Sat by Pulse 94 L 100 Oximetry 10/12/22 10/12/22 10/12/22 18:31 20:03 21:00 Temperature 97.4 F L Pulse Rate 85 86 Pulse Rate [ 76 Right Supine Pulse Oximetery ] Respiratory 16 20 Rate Blood Pressure 177/96 Blood Pressure 161/84 [Right Arm Supine] O2 Sat by Pulse 94 L 93 L Oximetry 10/12/22 21:05 Temperature Pulse Rate Pulse Rate [ Right Supine Pulse Oximetery ] Respiratory 18 Rate Blood Pressure Blood Pressure [Right Arm Supine] O2 Sat by Pulse Oximetry Medical Decision Making - Medical Decision Making Was pt. sent in by a medical professional or institution (CONNIE Jones, ASSISTANT PRODUCTION MANAGER, urgent care, hospital, or fci...) When possible be specific @ -No Did you speak to anyone other than the patient for history (EMS, parent, family, police, friend...)? What history was obtained from this source @ -Son Did you review nursing and triage notes (agree or disagree)? Why? @ -I reviewed and agree with nursing and triage notes Were old charts reviewed (outside hosp., previous admission, EMS record, old EKG, old radiological studies, urgent care reports/EKG's, fci records)? Report findings @ -Recent admission records not reviewed Differential Diagnosis (chest pain, altered mental status, abdominal pain women, abdominal pain men, vaginal bleeding, weakness, fever, dyspnea, syncope, headache, dizziness, GI bleed, back pain, seizure, CVA, palpatations, mental health, musculoskeletal)? @ -COPD exacerbation, pulmonary fibrosis, chf exacerbation, pe EKG interpreted by me (3pts min.). @ -yes X-rays interpreted by me (1pt min.). @ -yes CT interpreted by me (1pt min.). @ -None done U/S interpreted by me (1pt. min.). @ -None done What testing was considered but not performed or refused? (CT, X-rays, U/S, labs)? Why? @ -None What meds were considered but not given or refused? Why? @ -None Did you discuss the management of the patient with other professionals (professionals i.e. CONNIE Jones, ASSISTANT PRODUCTION MANAGER, lab, RT, psych nurse, social media job titles, double backer, teacher, aboriginal home school liaison officer, field nurse case manager)? Give summary @ -Admitting physician Was smoking cessation discussed for >3mins.? @ -No Was critical care preformed (if so, how long)? @ -No Were there social determinants of health that impacted care today? How? (Homelessness, low income, unemployed, alcoholism, drug addiction, transportation, low edu. Level, literacy, decrease access to med. care, usp, rehab)? @ -No Was there de-escalation of care discussed even if they declined (Discuss DNR or withdrawal of care, Hospice)? DNR status @ -No What co-morbidities impacted this encounter? (DM, HTN, Smoking, COPD, CAD, Cancer, CVA, ARF, Chemo, Hep., AIDS, mental health diagnosis, sleep apnea, morbid obesity)? @ -COPD, NV Was patient admitted / discharged? Hospital course, mention meds given and route, prescriptions, significant lab abnormalities, going to OR and other pertinent info. @ -Upon arrival patient was placed into room 2. Thorough history and physical exam was performed. Patient is diffusely wheezy. He was given a DuoNeb breathi ng treatment followed by an albuterol treatment. Laboratory studies are conducted. Viral swab was performed. Chest x-ray was performed. Patient is reevaluated and continues to be wheezy. He is given a gram of magnesium and 125 of Solu-Medrol. I recommended admission for which the patient was agreeable. Pulmonology will be consulted Undiagnosed new problem with uncertain prognosis? @ -yes Drug Therapy requiring intensive monitoring for toxicity (Heparin, Nitro, Insulin, Cardizem)? @ -No Were any procedures done? @ -No Diagnosis/symptom? @ -acute/chronic resp insuff, copd exacerbation Acute, or Chronic, or Acute on Chronic? @ -acute Uncomplicated (without systemic symptoms) or Complicated (systemic symptoms)? @ -complicated Side effects of treatment? @ -No Exacerbation, Progression, or Severe Exacerbation? @ -yes Poses a threat to life or bodily function? How? (Chest pain, USA, NV, pneumonia, PE, COPD, DKA, ARF, appy, cholecystitis, CVA, Diverticulitis, Homicidal, Suicidal, threat to staff... and all critical care pts) @ -yes - Lab Data Result diagrams: 10/13/22 03:49 10/13/22 03:49 Lab Results 10/12/22 10/12/22 10/12/22 Range/Units 18:15 18:15 18:15 WBC 7.1 (3.8-10.6) k/uL RBC 4.49 (4.30-5.90) m/uL Hgb 14.9 (13.0-17.5) gm/dL Hct 44.2 (39.0-53.0) % MCV 98.6 (80.0-100.0) fL MCH 33.3 (25.0-35.0) pg MCHC 33.7 (31.0-37.0) g/dL RDW 13.2 (11.5-15.5) % Plt Count 184 (150-450) k/uL MPV 7.1 Neutrophils % 45 % Lymphocytes % 30 % Monocytes % 6 % Eosinophils % 15 % Basophils % 1 % Neutrophils # 3.2 (1.3-7.7) k/uL Lymphocytes # 2.1 (1.0-4.8) k/uL Monocytes # 0.4 (0-1.0) k/uL Eosinophils # 1.1 H (0-0.7) k/uL Basophils # 0.1 (0-0.2) k/uL PT 10.3 (9.0-12.0) sec INR 1.0 (<1.2) APTT 26.1 (22.0-30.0) sec Sodium 134 L (137-145) mmol/L Potassium 4.4 (3.5-5.1) mmol/L Chloride 106 (98-107) mmol/L Carbon Dioxide 20 L (22-30) mmol/L Anion Gap 8 mmol/L BUN 7 L (9-20) mg/dL Creatinine 0.92 (0.66-1.25) mg/dL Est GFR (CKD-EPI)AfAm >90 (>60 ml/min/1.73 sqM) Est GFR (CKD-EPI)NonAf 82 (>60 ml/min/1.73 sqM) Glucose 85 (74-99) mg/dL Plasma Lactic Acid Jae (0.7-2.0) mmol/L Calcium 8.8 (8.4-10.2) mg/dL Total Bilirubin 0.6 (0.2-1.3) mg/dL AST 32 (17-59) U/L ALT 41 (4-49) U/L Alkaline Phosphatase 52 (38-126) U/L Troponin I (0.000-0.034) ng/mL NT-Pro-B Natriuret Pep pg/mL Total Protein 6.3 (6.3-8.2) g/dL Albumin 4.0 (3.5-5.0) g/dL Influenza Type A (PCR) (Not Detectd) Influenza Type B (PCR) (Not Detectd) RSV (PCR) (Not Detectd) SARS-CoV-2 (PCR) (Not Detectd) 10/12/22 10/12/22 10/12/22 Range/Units 18:15 18:15 18:15 WBC (3.8-10.6) k/uL RBC (4.30-5.90) m/uL Hgb (13.0-17.5) gm/dL Hct (39.0-53.0) % MCV (80.0-100.0) fL MCH (25.0-35.0) pg MCHC (31.0-37.0) g/dL RDW (11.5-15.5) % Plt Count (150-450) k/uL MPV Neutrophils % % Lymphocytes % % Monocytes % % Eosinophils % % Basophils % % Neutrophils # (1.3-7.7) k/uL Lymphocytes # (1.0-4.8) k/uL Monocytes # (0-1.0) k/uL Eosinophils # (0-0.7) k/uL Basophils # (0-0.2) k/uL PT (9.0-12.0) sec INR (<1.2) APTT (22.0-30.0) sec Sodium (137-145) mmol/L Potassium (3.5-5.1) mmol/L Chloride (98-107) mmol/L Carbon Dioxide (22-30) mmol/L Anion Gap mmol/L BUN (9-20) mg/dL Creatinine (0.66-1.25) mg/dL Est GFR (CKD-EPI)AfAm (>60 ml/min/1.73 sqM) Est GFR (CKD-EPI)NonAf (>60 ml/min/1.73 sqM) Glucose (74-99) mg/dL Plasma Lactic Acid Jae 1.9 (0.7-2.0) mmol/L Calcium (8.4-10.2) mg/dL Total Bilirubin (0.2-1.3) mg/dL AST (17-59) U/L ALT (4-49) U/L Alkaline Phosphatase (38-126) U/L Troponin I <0.012 (0.000-0.034) ng/mL NT-Pro-B Natriuret Pep 165 pg/mL Total Protein (6.3-8.2) g/dL Albumin (3.5-5.0) g/dL Influenza Type A (PCR) (Not Detectd) Influenza Type B (PCR) (Not Detectd) RSV (PCR) (Not Detectd) SARS-CoV-2 (PCR) (Not Detectd) 10/12/22 Range/Units 18:15 WBC (3.8-10.6) k/uL RBC (4.30-5.90) m/uL Hgb (13.0-17.5) gm/dL Hct (39.0-53.0) % MCV (80.0-100.0) fL MCH (25.0-35.0) pg MCHC (31.0-37.0) g/dL RDW (11.5-15.5) % Plt Count (150-450) k/uL MPV Neutrophils % % Lymphocytes % % Monocytes % % Eosinophils % % Basophils % % Neutrophils # (1.3-7.7) k/uL Lymphocytes # (1.0-4.8) k/uL Monocytes # (0-1.0) k/uL Eosinophils # (0-0.7) k/uL Basophils # (0-0.2) k/uL PT (9.0-12.0) sec INR (<1.2) APTT (22.0-30.0) sec Sodium (137-145) mmol/L Potassium (3.5-5.1) mmol/L Chloride (98-107) mmol/L Carbon Dioxide (22-30) mmol/L Anion Gap mmol/L BUN (9-20) mg/dL Creatinine (0.66-1.25) mg/dL Est GFR (CKD-EPI)AfAm (>60 ml/min/1.73 sqM) Est GFR (CKD-EPI)NonAf (>60 ml/min/1.73 sqM) Glucose (74-99) mg/dL Plasma Lactic Acid Jae (0.7-2.0) mmol/L Calcium (8.4-10.2) mg/dL Total Bilirubin (0.2-1.3) mg/dL AST (17-59) U/L ALT (4-49) U/L Alkaline Phosphatase (38-126) U/L Troponin I (0.000-0.034) ng/mL NT-Pro-B Natriuret Pep pg/mL Total Protein (6.3-8.2) g/dL Albumin (3.5-5.0) g/dL Influenza Type A (PCR) Not Detected (Not Detectd) Influenza Type B (PCR) Not Detected (Not Detectd) RSV (PCR) Not Detected (Not Detectd) SARS-CoV-2 (PCR) Not Detected (Not Detectd) - EKG Data EKG Comments: EKG demonstrates sinus rhythm with rate of 87. MA interval 195. QRS 106. QTC 410. No acute ST segment elevations or depressions Disposition Clinical Impression: COPD exacerbation, Acute respiratory insufficiency Disposition: ADMITTED IP TO THIS [facility] Condition: Stable Is patient prescribed a controlled substance at d/c from ED?: No Time of Disposition: 19:44 Decision to Admit Reason: Admit from EC Decision Date: 10/12/22 Decision Time: 19:44
[2022-10-12] MEDS ORDERED: ACETAMINOPHEN TAB 325 MG TAB PO PRN (19:45)
[2022-10-12] MEDS ORDERED: NALOXONE 0.4 MG/ML 1 ML VIAL IV PRN (19:45)
[2022-10-12] MEDS ORDERED: IPRATROPIUM-ALBUTEROL 3 ML NEB INHALATION SCH (20:00)
[2022-10-12 21:27] VITALS: RESP 18
[2022-10-12] MEDS: ALBUTEROL NEBULIZED 2.5 MG/3 ML INHALATION SCH (21:27)
[2022-10-12] MEDS: IPRATROPIUM 0.5 MG/2.5 ML NEBU INHALATION SCH (21:27)
[2022-10-13] MEDS ORDERED: methylPREDNISolone SOD SUCCI 40 MG/ML 1 ML VIAL IV SCH
[2022-10-13] MEDS: IPRATROPIUM 0.5 MG/2.5 ML NEBU INHALATION SCH ×2 (00:47→04:50)
[2022-10-13] MEDS: ALBUTEROL NEBULIZED 2.5 MG/3 ML INHALATION SCH ×2 (00:47→04:50)
[2022-10-13 02:14] VITALS: BP 151/77; TEMP 97.7
--- NOTE | 2022-10-13 02:53 | P.HPIM ---
History of Present Illness H&P Date: 10/12/22 Chief Complaint: shortness of breath 72 year old male with COPD he is coming in due to progressive worsening of shortness of breath despite breathing treatment , he is not on home oxygen , but on chronic low dose steroids, he has been taking his medications but also admits to smoking , over past few days , he noticed worsening of his chronic cough productive of whitish sputum , no hemoptysis , along with diffuse wheezing , denies any weight loss, he continue to smoke . he is very short of breath that he can not walk around his house, he used his inhalers multiple times today without much benefit. denies any recent travel or hospital stay , denies any history of blood clots. he denies any fever, chills, sore throat, body aches, nausea or vomiting , abd pain , changes in bowel or urinary habits. he admits to tobacco smoking , denies illicit drugs or alcohol , he admits to drinking only on sundays every week Review of Systems Pertinent positives as noted in HPI. All other systems were reviewed and are negative Past Medical History Past Medical History: COPD, GERD/Reflux, Myocardial Infarction (ND), Pneumonia, Vascular Disorder Additional Past Medical History / Comment(s): Bronchitis, past respiratory failure, PVD, pt states ND per EKG, beginnings of bilateral cataracts. Mass on lung Last Myocardial Infarction Date:: 2009 per EKG History of Any Multi-Drug Resistant Organisms: None Reported Past Surgical History: Appendectomy Additional Past Surgical History / Comment(s): Endovascular aortic repair, L iliac stent, colonoscopy Past Anesthesia/Blood Transfusion Reactions: No Reported Reaction Past Psychological History: Anxiety, Depression Smoking Status: Current every day smoker Past Alcohol Use History: Occasional Past Drug Use History: None Reported - Past Family History Mother Family Medical History: Liver Disease Additional Family Medical History / Comment(s): liver cirrhosis Brother(s) Family Medical History: Vascular Disorder Father Family Medical History: Myocardial Infarction (ND) Medications and Allergies Home Medications Medication Instructions Recorded Confirmed Type Omeprazole 20 mg PO DAILY 06/21/19 10/12/22 History Aspirin EC [Ecotrin Low Dose] 81 mg PO DAILY 12/11/19 10/12/22 History predniSONE 5 mg PO DAILY 10/12/22 10/12/22 History Allergies Allergy/AdvReac Type Severity Reaction Status Date / Time bee venom protein (honey bee) Allergy Unknown Verified 10/12/22 19:05 bupropion [From Wellbutrin] Allergy Unknown Verified 10/12/22 19:05 simvastatin [From Zocor] Allergy Unknown Verified 10/12/22 19:05 Physical Exam Vitals: Vital Signs Temp Pulse Resp BP Pulse Ox 10/12/22 18:31 85 10/12/22 18:28 75 19 161/89 100 10/12/22 18:18 80 10/12/22 17:41 98.2 F 90 26 H 180/92 94 L Intake and Output 10/12/22 10/12/22 10/12/22 06:59 14:59 22:59 Other: Weight 77.111 kg Constitutional: No acute distress, conversant, pleasant Eyes: Anicteric sclerae, moist conjunctiva, Pupils equal round reactive to light ENMT: NC/AT Oropharynx clear, no erythema, or exudates Neck: Supple, no masses, or JVD No carotid bruits No thyromegaly Lungs: prolonged expiratory phase, with rhonchi Clear to percussion Normal respiratory effort, no accessory muscle use Cardiovascular: Heart regular in rate and rhythm, No murmurs, gallops, or rubs No peripheral edema Abdominal: Soft Nontender, no guarding, rebound or rigidity Abdomen moving with respiration Normoactive bowel sounds No hepatomegaly, No splenomegaly No palpable mass No abdominal wall hernia noted Skin: Normal temperature, tone, texture, turgor No induration No subcutaneous nodules No rash, lesions No ulcers Extremities: No digital cyanosis No clubbing Pedal pulses intact and symmetrical Radial pulses intact and symmetrical No calf tenderness Psychiatric: Alert and oriented to person, place and time Appropriate affect fair judgement Neuro Muscles Strength 5/5 in all 4 extremities Sensation to light touch grossly present throughout Cranial nerves II-XII grossly intact Lymphatics: no palpable cervical or supraclavicular lymph nodes Results CBC & Chem 7: 10/12/22 18:15 10/12/22 18:15 Labs: Abnormal Lab Results - Last 24 Hours (Table) 10/12/22 10/12/22 Range/Units 18:15 18:15 Eosinophils # 1.1 H (0-0.7) k/uL Sodium 134 L (137-145) mmol/L Carbon Dioxide 20 L (22-30) mmol/L BUN 7 L (9-20) mg/dL Assessment and Plan Assessment: 72 year old male with COPD presented due to worsening shortness of breath , I discussed the case with ED doc, patient only had slight improvement after multiple treatment in the ED, I accepted the admission with anticipated length of stay of > 2 midnights for acute COPD exacerbation management with parenteral steroids and breathing treatment acute COPD exacerbation tobacco smoking counseled to quit smoking duonebs q4 hours prn shortness of breath CXR no acute pathology acute respiratory viral panel negative systemic IV solumedrol 40 mg q8hrs doxycycline 100 mg BID PO supplemental oxygen as needed assess for home oxygen requirement prior to discharge pulmonary consultation blood work reviewed and unremarkable resume aspirin PO daily with vague history of CAD GERD resume omeprazole PO daily dvt ppx heparin sc tid full code
[2022-10-13] MEDS ORDERED: BENZONATATE 100 MG CAP PO PRN (02:55)
[2022-10-13 05:01] VITALS: PULSE 88
[2022-10-13] MEDS ORDERED: HEPARIN SODIUM,PORCINE/PF 5,000 UNIT/0.5 ML SYRINGE SQ SCH (08:00)
[2022-10-13] MEDS ORDERED: PANTOPRAZOLE 40 MG TABLET PO SCH (09:00)
[2022-10-13] MEDS ORDERED: DOXYCYCLINE 100 MG CAP PO SCH (09:00)
[2022-10-13] MEDS ORDERED: ASPIRIN 81 MG PO SCH (09:00)
[2022-10-13 09:15] LABS: African American GFR (CKD) 76.8 (60.0-200.0); Anion Gap 12.1 mmol/L (10.00-18.00); BUN/Creat Ratio 12.64 Ratio (12.00-20.00); Blood Urea Nitrogen 13.9 mg/dL (9.0-27.0); Calcium 9.3 mg/dL (8.7-10.3); Carbon Dioxide 19.9 mmol/L (20.0-27.5); Non-African American GFR(CKD) 66.2 (60.0-200.0); Potassium 4.6 mmol/L (3.5-5.5)
[2022-10-13 09:43] LABS: HCT 44.2 % (39.6-50.0); HGB 15.1 g/dL (13.0-17.0); MCH 32.8 pg (27.0-32.0); MCHC 34.2 g/dL (32.0-37.0); MCV 96.1 fL (80.0-97.0); Mean Platelet Volume 9.3 fL (9.5-12.2); NRBC Per 100 WBC 0 /100 WBCS (0.0-0.0); Platelet Count 185 X 10*3/uL (140-440); RDW 13.4 % (11.5-14.5); WBC 5.12 X 10*3/uL (4.50-10.00)
--- NOTE | 2022-10-13 10:53 | P.DS ---
Providers Date of admission: 10/12/22 19:45 Expected date of discharge: 10/13/22 Attending physician: Ness Franco MD Consults: 10/12/22 19:45 Consult Physician Urgent Consulting Provider: Cameron Pollock Consult Reason/Comments: copd exacerbation Do you want consulting provider notified?: Yes Primary care physician: [facility] Hospital Course: This patient left AGAINST MEDICAL ADVICE and was not seen by me. 72 year old male with COPD presents to the ED for progressive worsening of shortness of breath despite breathing treatments. He continues to smoke cigarettes. Patient was admitted for COPD exacerbation. He was started on bronchodilators and IV Solu-Medrol along with doxycycline by mouth. Patient left AGAINST MEDICAL ADVICE on 10/13 prior to being seen by me. No physical exam was performed. Pertinent studies include chest x-ray. Discharge diagnosis: #Acute COPD exacerbation #Tobacco smoking Patient Condition at Discharge: Stable Plan - Discharge Summary Discharge Rx Participant: No New Discharge Prescriptions: No Action Omeprazole 20 mg PO DAILY Aspirin EC [Ecotrin Low Dose] 81 mg PO DAILY predniSONE 5 mg PO DAILY Discharge Medication List Omeprazole 20 mg PO DAILY 06/21/19 [History] Aspirin EC [Ecotrin Low Dose] 81 mg PO DAILY 12/11/19 [History] predniSONE 5 mg PO DAILY 10/12/22 [History] Follow up Appointment(s)/Referral(s): [facility],Clinic [Primary Care Provider] - 1-2 days Discharge Disposition: Left Against Medical Advice
[2022-10-13 11:27] LABS: Basophils # (A) 0.02 X 10*3/uL (0.00-0.10); Basophils % (A) 0.4 %; Eosinophils # (A) 0 X 10*3/uL (0.04-0.35); Eosinophils % (A) 0 %; Immature Grans, Automated 0.4 %; Lymphocytes # (A) 0.39 X 10*3/uL (0.90-5.00); Lymphocytes % (A) 7.6 %; Monocytes # (A) 0.04 X 10*3/uL (0.20-1.00); Monocytes % (A) 0.8 %; Neutrophils # (A) 4.65 X 10*3/uL (1.80-7.70); Neutrophils % (A) 90.8 %
== END 2022-10-13 07:24 | disposition left against medical advice (07) | DRG 192 ==
LOC: EC 17:34 → 4SSUR 19:45 → 5NMEDONC 20:11
PROVIDERS: ADMIT Internal Medicine; ATTEND Internal Medicine
DX: J44.1 Chronic obstructive pulmonary disease with (acute) exacerbation (principal); K21.9 Gastro-esophageal reflux disease without esophagitis; I25.10 Atherosclerotic heart disease of native coronary artery without angina pectoris; F41.9 Anxiety disorder, unspecified; F32.A Depression, unspecified; F17.210 Nicotine dependence, cigarettes, uncomplicated; I73.9 Peripheral vascular disease, unspecified; Z20.822 Contact with and (suspected) exposure to COVID-19; Z79.82 Long term (current) use of aspirin; Z79.52 Long term (current) use of systemic steroids; I25.2 Old myocardial infarction; Z87.01 Personal history of pneumonia (recurrent); Z95.820 Peripheral vascular angioplasty status with implants and grafts; Z71.6 Tobacco abuse counseling
CPT/HCPCS: 36415; 71046; 80048; 80053; 83605; 83880; 84484; 85025; 85610; 85730; 87636; 93005; 94640; 94760; 96365; 96375; 96376; 99285

== ENCOUNTER 2023-08-20 09:25 | Emergency (ER) | payer MEDICARE, OTHER ==
[2023-08-20 09:37] VITALS: RESP 18
--- NOTE | 2023-08-20 09:48 | ED ---
Back Pain HPI - General Chief Complaint: Back Pain/Injury Stated Complaint: Back Pain Time Seen by Provider: 08/20/23 09:34 Source: patient, RN notes reviewed Limitations: no limitations - History of Present Illness Initial Comments: 73-year-old male presents emergency department chief complaint of back pain. Patient states that he was cleaning his bathroom floor 1 week ago when he states he went to get up but twisted at same time and felt pain in his thoracic to mid back. Patient states that he has pain when he presses on his back leans backwards or moves. He has no chest pain or shortness of breath no fever chills no cough or cold-like symptoms. - Related Data Home Medications Medication Instructions Recorded Confirmed Omeprazole 20 mg PO DAILY 06/21/19 10/12/22 Aspirin EC [Ecotrin Low Dose] 81 mg PO DAILY 12/11/19 10/12/22 predniSONE 5 mg PO DAILY 10/12/22 10/12/22 Previous Rx's Medication Instructions Recorded HYDROcodone/APAP 5-325MG [[place] 5] 1 each PO Q6HR PRN #12 tab 08/20/23 Allergies Allergy/AdvReac Type Severity Reaction Status Date / Time bee venom protein (honey bee) Allergy Unknown Verified 08/20/23 09:33 bupropion [From Wellbutrin] Allergy Unknown Verified 08/20/23 09:33 simvastatin [From Zocor] Allergy Unknown Verified 08/20/23 09:33 Review of Systems ROS Statement: Those systems with pertinent positive or pertinent negative responses have been documented in the HPI. ROS Other: All systems not noted in ROS Statement are negative. Past Medical History Past Medical History: COPD, GERD/Reflux, Myocardial Infarction ([place]), Pneumonia, Vascular Disorder Additional Past Medical History / Comment(s): Bronchitis, past respiratory failure, PVD, pt states [place] per EKG, beginnings of bilateral cataracts. Mass on lung Last Myocardial Infarction Date:: 2009 per EKG History of Any Multi-Drug Resistant Organisms: None Reported Past Surgical History: Appendectomy Additional Past Surgical History / Comment(s): Endovascular aortic repair, L iliac stent, colonoscopy Past Anesthesia/Blood Transfusion Reactions: No Reported Reaction Past Psychological History: Anxiety, Depression Smoking Status: Current every day smoker Past Alcohol Use History: Daily Past Drug Use History: None Reported - Past Family History Mother Family Medical History: Liver Disease Additional Family Medical History / Comment(s): liver cirrhosis Brother(s) Family Medical History: Vascular Disorder Father Family Medical History: Myocardial Infarction ([place]) General Exam Limitations: no limitations General appearance: alert, in no apparent distress Head exam: Present: atraumatic, normocephalic, normal inspection Neck exam: Present: normal inspection. Absent: tenderness, meningismus, lymphadenopathy Respiratory exam: Present: normal lung sounds bilaterally. Absent: respiratory distress, wheezes, rales, rhonchi, stridor Cardiovascular Exam: Present: regular rate, normal rhythm, normal heart sounds. Absent: systolic murmur, diastolic murmur, rubs, gallop, clicks GI/Abdominal exam: Present: soft, normal bowel sounds. Absent: distended, tenderness, guarding, rebound, rigid Extremities exam: Present: normal inspection, full ROM, normal capillary refill. Absent: tenderness, pedal edema, joint swelling, calf tenderness Back exam: Present: full ROM, tenderness, paraspinal tenderness, vertebral tenderness ( thoracic region) Neurological exam: Present: reflexes normal. Absent: motor sensory deficit Skin exam: Present: warm, dry, intact, normal color. Absent: rash Course Vital Signs 08/20/23 08/20/23 09:27 13:08 Temperature 98 F 98.2 F Pulse Rate 72 74 Respiratory 18 18 Rate Blood Pressure 189/89 154/89 O2 Sat by Pulse 98 98 Oximetry Medical Decision Making - Medical Decision Making Was pt. sent in by a medical professional or institution (CONNIE Jones, ART TRACER, urgent care, hospital, or custodial...) When possible be specific @ -No Did you speak to anyone other than the patient for history (EMS, parent, family, police, friend...)? What history was obtained from this source @ -No Did you review nursing and triage notes (agree or disagree)? Why? @ -I reviewed and agree with nursing and triage notes Were old charts reviewed (outside hosp., previous admission, EMS record, old EKG, old radiological studies, urgent care reports/EKG's, custodial records)? Report findings @ -No old charts were reviewed Differential Diagnosis (chest pain, altered mental status, abdominal pain women, abdominal pain men, vaginal bleeding, weakness, fever, dyspnea, syncope, headache, dizziness, GI bleed, back pain, seizure, CVA, palpatations, mental health, musculoskeletal)? @ -[Differential Back Pain: Strain, zoster, cauda equina syndrome, epidural abscess, vertebral osteomyelitis, discitis, fracture, subluxation, disc herniation, DJD, spinal stenosis, dissection, AAA, pancreatitis, peptic ulcer disease, pyelonephritis, kidney stone, this is not meant to be an all-inclusive list. EKG interpreted by me (3pts min.). @ -None X-rays interpreted by me (1pt min.). @ -X-ray thoracic spine showing old compression fracture CT interpreted by me (1pt min.). @ -[CT of the thoracic spine showing compression fracture L2, old compression fractures U/S interpreted by me (1pt. min.). @ -[None done What testing was considered but not performed or refused? (CT, X-rays, U/S, labs)? Why? @ -None What meds were considered but not given or refused? Why? @ -None Did you discuss the management of the patient with other professionals (professionals i.e. , PA, ART TRACER, lab, RT, psych nurse, social services coordinator, manager administration, teacher, senior administrative services officer, porter sample case)? Give summary @ -No Was smoking cessation discussed for >3mins.? @ -No Was critical care preformed (if so, how long)? @ -No Were there social determinants of health that impacted care today? How? (Homelessness, low income, unemployed, alcoholism, drug addiction, transportation, low edu. Level, literacy, decrease access to med. care, detention, rehab)? @ -No Was there de-escalation of care discussed even if they declined (Discuss DNR or withdrawal of care, Hospice)? DNR status @ -No What co-morbidities impacted this encounter? (DM, HTN, Smoking, COPD, CAD, Cancer, CVA, ARF, Chemo, Hep., AIDS, mental health diagnosis, sleep apnea, morbid obesity)? @ -None Was patient admitted / discharged? Hospital course, mention meds given and route, prescriptions, significant lab abnormalities, going to OR and other pertinent info. @ -[Discharge patient has no neurological symptoms. Patient does have compression fracture noted patient advised to have no lifting twisting bending will follow-up with orthopedics. Patient provided analgesics. We did discuss strict return parameters. Undiagnosed new problem with uncertain prognosis? @ -No Drug Therapy requiring intensive monitoring for toxicity (Heparin, Nitro, Insulin, Cardizem)? @ -No Were any procedures done? @ -No Diagnosis/symptom? @ -Vertebral compression fracture Acute, or Chronic, or Acute on Chronic? @ -[Acute Uncomplicated (without systemic symptoms) or Complicated (systemic symptoms)? @ -Uncomplicated Side effects of treatment? @ -No Exacerbation, Progression, or Severe Exacerbation? @ -No Poses a threat to life or bodily function? How? (Chest pain, [place], [place], pneumonia, PE, COPD, DKA, ARF, appy, cholecystitis, CVA, Diverticulitis, Homicidal, Suicidal, threat to staff... and all critical care pts) @ -No Disposition Clinical Impression: Vertebral compression fracture Disposition: HOME SELF-CARE Condition: Stable Instructions (If sedation given, give patient instructions): Vertebral Compression Fracture (ED) Additional Instructions: Please return to the Emergency Department if symptoms worsen or any other concerns. Prescriptions: HYDROcodone/APAP 5-325MG [[place] 5] 1 each PO Q6HR PRN #12 tab PRN Reason: Pain Is patient prescribed a controlled substance at d/c from ED?: Yes When asked, does pt state using other controlled substances?: No If prescribed controlled substance>3 days was MAPS reviewed?: Prescribed <3 Days If opioid is for acute pain is fill amount 7 days or less?: Yes If Rx opioid, was Start Talking consent form obtained?: Yes Referrals: [facility],Clinic [Primary Care Provider] - 1-2 days Rcoky Smith DO [Doctor of Osteopathic Medicine] - 1-2 days Sameer Oliva DO [Doctor of Osteopathic Medicine] - 1-2 days Time of Disposition: 12:44
--- NOTE | 2023-08-20 10:45 | XR ---
EXAMINATION TYPE: XR thoracic spine 3 views DATE OF EXAM: 08/20/2023 COMPARISON: CT chest 03/12/2022 HISTORY: 73-year-old male back pain for one week after twisting injury TECHNIQUE: 3 views FINDINGS: Osteopenia. 12 rib-bearing thoracic vertebral bodies. [facility] within the mid thoracic spine. M ild anterior wedge deformity L1 vertebral body remains unchanged back to the CT consumer loan manager of 03/12/2022. M inimal anterior wedging T7 also unchanged. Slight accentuated mid to lower thoracic kyphosis. Overall alignment is maintained. Partially visualized abdominal aorta endovascular stent graft. IMPRESSION: 1. DISH mid thoracic spine. 2. A couple levels of chronic mild compression deformities involving T7 and L1 vertebral bodies, unch anged back to 03/12/2022. 3. No new vertebral compression deformity or malalignment is seen.
--- NOTE | 2023-08-20 12:04 | CT ---
EXAMINATION TYPE: CT thoracic spine wo con DATE OF EXAM: 08/20/2023 COMPARISON: None HISTORY: Pain CT DLP: 686.9 mGycm Automated exposure control for dose reduction was used. Contrast: None Technique: Axial images 3 mm thick sections. Oral constructed images in the sagittal plane FINDINGS: Some mild inferior T8 endplate change is present. Some mild superior endplate changes present at T12. Mild compression of L2 is within the [id number]. Vertebral body heights are otherwise preserved. No posterior wall displacement is evident. No spinal canal stenosis is present. No focal disc hernia tions are identified. Note is made of some endplate changes in the lower cervical spine may has some anterior thecal sac compression. Abdominal aortic stenting is evident the upper abdomen. No spinal canal stenosis is present. Disc heights appear preserved. IMPRESSION: 1. MINIMAL ENDPLATE CHANGES T8 AND T12 OF INDETERMINATE AGE. 2. NO SPINAL CANAL STENOSIS.
[2023-08-20 13:26] VITALS: BP 154/89; PULSE 74; TEMP 98.2
== END 2023-08-20 13:20 | disposition home or self-care (01) ==
LOC: EC 09:25
DX: S22.000A Wedge compression fracture of unspecified thoracic vertebra, initial encounter for closed fracture (principal); J44.9 Chronic obstructive pulmonary disease, unspecified; K21.9 Gastro-esophageal reflux disease without esophagitis; I25.2 Old myocardial infarction; F17.200 Nicotine dependence, unspecified, uncomplicated; Z86.59 Personal history of other mental and behavioral disorders; Z79.899 Other long term (current) drug therapy; Z79.82 Long term (current) use of aspirin; Z91.030 Bee allergy status; Z88.8 Allergy status to other drugs, medicaments and biological substances; X50.1XXA Overexertion from prolonged static or awkward postures, initial encounter
CPT/HCPCS: 72070; 72128; 99283

== ENCOUNTER 2023-08-26 10:34 | Inpatient (IN) | payer MEDICARE, OTHER ==
--- NOTE | 2023-08-26 11:00 | ED ---
General Adult HPI - General Source: patient, RN notes reviewed Mode of arrival: wheelchair Limitations: no limitations <Analilia Gandhi - Last Filed: 08/26/23 10:59> <Tierra Rosario - Last Filed: 08/26/23 16:19> - General Chief complaint: Back Pain/Injury Stated complaint: abd and back pain Time Seen by Provider: 08/26/23 10:59 - History of Present Illness Initial comments: Patient is a 73-year-old male presented to the ER with chief complaint of back pain and abdominal pain. Patient reports he has several vertebral compression fractures. Patient also states that he has been having abdominal pain for the past couple days. Patient states he has not had a bowel movement in the past couple days. (Analilia Gandhi) - Related Data Home Medications Medication Instructions Recorded Confirmed Omeprazole 20 mg PO DAILY 06/21/19 08/26/23 Aspirin EC [Ecotrin Low Dose] 81 mg PO DAILY 12/11/19 08/26/23 predniSONE 5 mg PO DAILY 10/12/22 08/26/23 HYDROcodone/APAP 5-325MG [[place] 5] 1 tab PO Q6HR PRN 08/26/23 08/26/23 Allergies Allergy/AdvReac Type Severity Reaction Status Date / Time bee venom protein (honey bee) Allergy Unknown Verified 08/26/23 15:17 bupropion [From Wellbutrin] Allergy Unknown Verified 08/26/23 15:17 simvastatin [From Zocor] Allergy Unknown Verified 08/26/23 15:17 Review of Systems ROS Other: All systems not noted in ROS Statement are negative. <Analilia Gandhi - Last Filed: 08/26/23 10:59> ROS Other: All systems not noted in ROS Statement are negative. <Tierra Rosario - Last Filed: 08/26/23 16:19> ROS Statement: Those systems with pertinent positive or pertinent negative responses have been documented in the HPI. Past Medical History Past Medical History: COPD, GERD/Reflux, Myocardial Infarction ([place]), Pneumonia, Vascular Disorder Additional Past Medical History / Comment(s): Bronchitis, past respiratory failure, PVD, pt states [place] per EKG, beginnings of bilateral cataracts. Mass on lung Last Myocardial Infarction Date:: 2009 per EKG History of Any Multi-Drug Resistant Organisms: None Reported Past Surgical History: Appendectomy Additional Past Surgical History / Comment(s): Endovascular aortic repair, L iliac stent, colonoscopy Past Anesthesia/Blood Transfusion Reactions: No Reported Reaction Past Psychological History: Anxiety, Depression Smoking Status: Current every day smoker Past Alcohol Use History: Daily Past Drug Use History: None Reported - Past Family History Mother Family Medical History: Liver Disease Additional Family Medical History / Comment(s): liver cirrhosis Brother(s) Family Medical History: Vascular Disorder Father Family Medical History: Myocardial Infarction ([place]) <Analilia Gandhi - Last Filed: 08/26/23 10:59> General Exam Limitations: no limitations <Analilia Gandhi - Last Filed: 08/26/23 10:59> - General Exam Comments Initial Comments: Visual Physical Exam Vital signs reviewed General: Well-appearing, nontoxic, no acute distress. Head: Normocephalic, atraumatic Eyes: PERRLA, EOMI ENT: Airway patent Chest: Nonlabored breathing Skin: No visual rash, normal skin tone, abdomen appears distended Neuro: Alert and oriented 3 Musculoskeletal: No gross abnormalities (Analilia Gandhi) Course Vital Signs 08/26/23 10:47 Temperature 97.7 F Pulse Rate 57 L Respiratory 16 Rate Blood Pressure 157/91 O2 Sat by Pulse 94 L Oximetry Medical Decision Making <Analilia Gandhi - Last Filed: 08/26/23 10:59> - Lab Data Result diagrams: 08/26/23 12:14 08/26/23 12:14 <Tierra Rosario - Last Filed: 08/26/23 16:19> - Medical Decision Making I performed the quick note portion of the exam. Electronically signed by Analilia Gandhi PA-C (Analilia Gandhi) - Lab Data Lab Results 08/26/23 08/26/23 08/26/23 Range/Units 12:14 12:14 12:14 WBC 5.4 (3.8-10.6) k/uL RBC 5.22 (4.30-5.90) m/uL Hgb 17.7 H (13.0-17.5) gm/dL Hct 50.5 (39.0-53.0) % MCV 96.6 (80.0-100.0) fL MCH 33.8 (25.0-35.0) pg MCHC 35.0 (31.0-37.0) g/dL RDW 13.1 (11.5-15.5) % Plt Count 181 (150-450) k/uL MPV 7.9 Sodium 135 L (137-145) mmol/L Potassium 4.7 (3.5-5.1) mmol/L Chloride 103 (98-107) mmol/L Carbon Dioxide 19 L (22-30) mmol/L Anion Gap 13 mmol/L BUN 28 H (9-20) mg/dL Creatinine 1.04 (0.66-1.25) mg/dL Est GFR (CKD-EPI)AfAm 82 (>60 ml/min/1.73 sqM) Est GFR (CKD-EPI)NonAf 71 (>60 ml/min/1.73 sqM) Glucose 122 H (74-99) mg/dL Plasma Lactic Acid Jae 1.5 (0.7-2.0) mmol/L Calcium 9.7 (8.4-10.2) mg/dL Total Bilirubin 1.6 H (0.2-1.3) mg/dL AST 49 (17-59) U/L ALT 120 H (4-49) U/L Alkaline Phosphatase 142 H (38-126) U/L Total Protein 7.3 (6.3-8.2) g/dL Albumin 4.4 (3.5-5.0) g/dL Amylase 44 (30-110) U/L Lipase 15 L (23-300) U/L Disposition <Analilia Gandhi - Last Filed: 08/26/23 10:59> Is patient prescribed a controlled substance at d/c from ED?: No Time of Disposition: 16:19 Decision to Admit Reason: Admit from EC Decision Date: 08/26/23 Decision Time: 16:19 <Tierra Rosario - Last Filed: 08/26/23 16:19> Clinical Impression: Abdominal pain, Nausea and vomiting, Small bowel obstruction Disposition: ADMITTED IP TO THIS [facility] Condition: Stable Referrals: [facility],Clinic [Primary Care Provider] - 1-2 days
[2023-08-26 12:43] LABS: HCT 50.5 % (39.0-53.0); HGB 17.7 gm/dL (13.0-17.5); MCH 33.8 pg (25.0-35.0); MCV 96.6 fL (80.0-100.0); Mean Platelet Volume 7.9; Platelet Count 181 k/uL (150-450); RBC 5.22 m/uL (4.30-5.90); RDW 13.1 % (11.5-15.5); WBC 5.4 k/uL (3.8-10.6)
[2023-08-26 12:47] LABS: ALT 120 U/L (4-49); AST 49 U/L (17-59); African American GFR (CKD) 82 (>60 ml/min/1.73 sqM); Albumin 4.4 g/dL (3.5-5.0); Alkaline Phosphatase 142 U/L (38-126); Amylase 44 U/L (30-110); Anion Gap 13 mmol/L; Blood Urea Nitrogen 28 mg/dL (9-20); Calcium 9.7 mg/dL (8.4-10.2); Carbon Dioxide 19 mmol/L (22-30); Chloride 103 mmol/L (98-107); Glucose 122 mg/dL (74-99); Lipase 15 U/L (23-300); Non-African American GFR(CKD) 71 (>60 ml/min/1.73 sqM); Potassium 4.7 mmol/L (3.5-5.1); Sodium 135 mmol/L (137-145); Total Bilirubin 1.6 mg/dL (0.2-1.3); Total Protein 7.3 g/dL (6.3-8.2)
--- NOTE | 2023-08-26 13:52 | CT ---
EXAMINATION TYPE: CT abdomen pelvis wo con DATE OF EXAM: 08/26/2023 COMPARISON: 03/12/2022 INDICATION: abdominal pain, back pain DLP: 546.6 mGycm, Automated exposure control for dose reduction was used. CONTRAST: 0 mL of Isovue 300. Study performed without Oral Contrast TECHNIQUE: Axial images were obtained from above the diaphragm to the pubic rami in the axial plane a t 5 mm thick sections. Reconstructed images are reviewed on the computer in the coronal plane. FINDINGS: Limited CT sections are obtained the lung bases. Some thickening up to 0.7 cm may be within the lingu la at the left diaphragm base. Series 201 image 6. Punctate nodularity above the posterior left diaph ragm may remain present without enlargement, series 201 image 10 measuring 0.5 cm. Minimal pericardial effusion is present. Some coronary artery calcification is noted. Cardiomegaly is present. Hiatal hernia is present with an air-fluid level. CT ABDOMEN: A prominent retrocrural lymph node measuring 0.9 cm may be present. Liver: Normal Spleen: Normal Pancreas: Atrophic Adrenal glands: The adrenal glands are normal. Gallbladder: Normal Kidneys: No masses are evident. No hydronephrosis is present. There is a 3.7 cm cyst posterior late ral right kidney which is slightly enlarged from comparison. No obstructing renal or ureteral stones are evident. Aorta: Vascular calcification is within the aorta. There is an abdominal aortic aneurysm with stent graft repair. Distal right common iliac artery stent is prominent measuring 2.4 cm. Inferior vena cava: Normal. CT PELVIS: There are multiple fluid-filled dilated small bowel loops. Fecal debris is in the colon. A zone of tr ansition is not identified. Dilated small bowel loops extend to the right lower quadrant. Fecalizatio n within the ileum is not excluded. Appendix: Not identified. No dilated tubular structure or inflammatory changes are evident. Urinary bladder: Normal. Genitourinary structures: Prostate appears normal Osseous structures: No suspicious lytic or sclerotic lesions. IMPRESSION: 1. Dilated fluid-filled small bowel loops extending to the lower abdomen. Some fecal debris with may be within the dilated terminal ileum region. Fecal debris is through the ascending and transverse col on. No solid transition to identify the obstruction is evident. Findings however appears suspicious f or small bowel obstruction. Report was called to the ER by Dr. Hernandez by telephone at the time of in terpretation.
[2023-08-26] MEDS ORDERED: SODIUM CHLORIDE 0.9% 1,000 ML IV ONE (16:10)
[2023-08-26] MEDS ORDERED: ONDANSETRON 4 MG/2 ML VIAL IVP STA (16:10)
[2023-08-26] MEDS ORDERED: MORPHINE SULFATE 4 MG/ML SYRINGE IVP STA (16:10)
[2023-08-26] MEDS ORDERED: MORPHINE SULFATE 4 MG/ML SYRINGE IV PRN (16:20)
[2023-08-26] MEDS ORDERED: ONDANSETRON 4 MG/2 ML VIAL IVP PRN (16:20)
[2023-08-26] MEDS ORDERED: NALOXONE 0.4 MG/ML 1 ML VIAL IV PRN (16:20)
[2023-08-26] MEDS ORDERED: IPRATROPIUM-ALBUTEROL 3 ML NEB INHALATION PRN (17:26)
[2023-08-26] MEDS: SODIUM CHLORIDE 0.9% 1,000 ML IV SCH (17:30)
--- NOTE | 2023-08-26 17:30 | P.HPIM ---
History of Present Illness H&P Date: 08/26/23 Patient is a 73-year-old male with history of AAA with stent ,COPD, nicotine dependence, dyslipidemia, GERD presenting with back pain and abdominal pain. He claims that his back pain has been chronic, was recently evaluated. Orthospine 1 week ago. There was plan for further surgical interventions. However, 2 days ago the back pain worsened and often radiated down to his right lower extremity as well as to his abdomen. He also started noticing abdominal distention, and nausea. He denies any fevers or chills. He does have chronic cough, slightly worsening. Does use inhalers at home. He denies using any other medications other than his inhalers. He is not sure about which inhaler he uses. He does have some productive cough as well. He lives by himself, manages own medications. He continues to smoke 1 pack/day, drinks 1 beer per day, denies any illicit drug use. In the ED, temperature was 97.7, pulse 57, respiratory rate 16, blood pressure 157/91, saturating at 94% on room air. WBC 5.4, hemoglobin 17.7, sodium 135, bicarb 19, anion gap 13, lactate 1.5, creatinine 1.04, BUN 28, glucose 122, total bili 1.6, AST 49, ALT 120, ALP 142. Lipase was 15. CT abdomen pelvis showed dilated fluid-filled small bowel loops extending to the lower abdomen. Some fecal debris with may be dilated terminal ileum return. No solid transition point identified. Findings suspicious for small bowel obstruction. Patient being admitted for small bowel obstruction and COPD exacerbation. Pertinent positives and negatives as discussed in HPI, a complete review of systems was performed and all other systems are negative. Patient seen and examined at bedside. Vital signs reviewed General: nontoxic, no distress, appears at stated age Derm: warm, dry Head: atraumatic, normocephalic, symmetric Eyes: EOMI, no lid lag, anicteric sclera, pupils equal round reactive to light ENT: Nose and ears atraumatic Neck: No thyromegaly, supple Mouth: no lip lesion, mucus membranes moist Cardiovascular: S1S2 reg, no murmur, no edema Lungs: Scattered wheezing, no accessory muscle use Abdominal: soft, distended, tender to palpation in all quadrants, no guarding, no appreciable organomegaly Ext: no gross muscle atrophy, muscle strength muscle strength 5 out of 5 in all 4 extremities, no contractures, lumbar spine tender to palpation Neuro: CN II-XII grossly intact Psych: Alert, oriented, appropriate affect Assessment/Plan: Active: Small bowel obstruction Anion gap metabolic acidosis Prerenal azotemia Mild hyponatremia Transaminitis -Continue supportive care -Normal saline at 75 cc an hour -Pain control with IV morphine as needed -Zofran as needed -General surgery consulted -NG tube placement -Keep n.p.o. -Repeat CMP tomorrow Acute on chronic back pain -Orthospine consulted Mild COPD exacerbation -DuoNeb scheduled and as needed -Solu-Medrol 40 IV every 6 hours, monitor mentation -Chest x-ray ordered Chronic: AAA with stent Nicotine dependence, counseled regarding smoking cessation Dyslipidemia, not on medications GERD The patient is admitted with an anticipated greater than 2 midnight stay as inpatient status for evaluation of SBO. Surrogate decision-maker: Sibling CODE STATUS: Full code DVT prophylaxis: heparin Sq Anticipated discharge date: Pending clinical course Anticipated discharge place: Pending clinical course A total of 55 minutes was spent on the care of this complex patient more than 50% of the time was spent in counseling and care coordination. Past Medical History Past Medical History: COPD, GERD/Reflux, Myocardial Infarction ([place]), Pneumonia, Vascular Disorder Additional Past Medical History / Comment(s): Bronchitis, past respiratory failure, PVD, pt states [place] per EKG, beginnings of bilateral cataracts. Mass on lung Last Myocardial Infarction Date:: 2009 per EKG History of Any Multi-Drug Resistant Organisms: None Reported Past Surgical History: Appendectomy Additional Past Surgical History / Comment(s): Endovascular aortic repair, L iliac stent, colonoscopy Past Anesthesia/Blood Transfusion Reactions: No Reported Reaction Past Psychological History: Anxiety, Depression Smoking Status: Current every day smoker Past Alcohol Use History: Daily Past Drug Use History: None Reported - Past Family History Mother Family Medical History: Liver Disease Additional Family Medical History / Comment(s): liver cirrhosis Brother(s) Family Medical History: Vascular Disorder Father Family Medical History: Myocardial Infarction ([place]) Medications and Allergies Home Medications Medication Instructions Recorded Confirmed Type Omeprazole 20 mg PO DAILY 06/21/19 08/26/23 History Aspirin EC [Ecotrin Low Dose] 81 mg PO DAILY 12/11/19 08/26/23 History predniSONE 5 mg PO DAILY 10/12/22 08/26/23 History HYDROcodone/APAP 5-325MG [[place] 5] 1 tab PO Q6HR PRN 08/26/23 08/26/23 History Allergies Allergy/AdvReac Type Severity Reaction Status Date / Time bee venom protein (honey bee) Allergy Unknown Verified 08/26/23 15:17 bupropion [From Wellbutrin] Allergy Unknown Verified 08/26/23 15:17 simvastatin [From Zocor] Allergy Unknown Verified 08/26/23 15:17 Physical Exam Vitals: Vital Signs Temp Pulse Resp BP Pulse Ox 08/26/23 10:47 97.7 F 57 L 16 157/91 94 L Intake and Output 08/26/23 08/26/23 08/26/23 06:59 14:59 22:59 Other: Weight 74.843 kg Results CBC & Chem 7: 08/26/23 12:14 08/26/23 12:14 Labs: Abnormal Lab Results - Last 24 Hours (Table) 08/26/23 08/26/23 Range/Units 12:14 12:14 Hgb 17.7 H (13.0-17.5) gm/dL Sodium 135 L (137-145) mmol/L Carbon Dioxide 19 L (22-30) mmol/L BUN 28 H (9-20) mg/dL Glucose 122 H (74-99) mg/dL Total Bilirubin 1.6 H (0.2-1.3) mg/dL ALT 120 H (4-49) U/L Alkaline Phosphatase 142 H (38-126) U/L Lipase 15 L (23-300) U/L
[2023-08-26 18:05] LABS: Appearance,Urine Cloudy (Clear); Bilirubin,Urine 1+ (Negative); Blood,Urine Negative (Negative); Color,Urine Dark Brown; Glucose,Urine (UA) Negative (Negative); Ketones,Urine 2+ (Negative); Leukocyte Esterase,Urine Negative (Negative); Mucus,Urine Few /hpf; Nitrite,Urine Negative (Negative); PH, Urine 5.5 (5.0-8.0); Protein,Urine 1+ (Negative); RBC,Urine 1 /hpf (0-5); Specific Gravity,Urine 1.033 (1.001-1.035); Squamous Epithelial Cell,Urine <1 /hpf (0-4); WBC,Urine 1 /hpf (0-5)
--- NOTE | 2023-08-26 18:12 | XR ---
EXAMINATION TYPE: XR chest 1V portable DATE OF EXAM: 08/26/2023 5:50 PM CLINICAL INDICATION:Male, 73 years old with history of COPD; [facility] COMPARISON: Chest radiographs from 10/12/2022 TECHNIQUE: XR chest 1V portable Frontal view of the chest. FINDINGS: Lungs/Pleura: There is no evidence of pleural effusion, focal consolidation, or pneumothorax. Pulmonary vascularity: Unremarkable. Heart/mediastinum: Cardiomediastinal silhouette is prominent in size. Musculoskeletal: No acute osseous pathology. Other findings: None IMPRESSION: No acute cardiopulmonary disease/process.
[2023-08-26] MEDS: methylPREDNISolone SOD SUCCI 40 MG/ML 1 ML VIAL IV SCH ×2 (20:05→23:50)
[2023-08-26] MEDS: PANTOPRAZOLE 40 MG/10 ML VIAL IVP SCH (20:05)
[2023-08-26] MEDS: IPRATROPIUM-ALBUTEROL 3 ML NEB INHALATION SCH (20:09)
[2023-08-26 20:52] VITALS: RESP 18
[2023-08-26] MEDS: HEPARIN SODIUM,PORCINE 5,000 UNIT/ML 1 ML VIAL SQ SCH (23:50)
[2023-08-27] MEDS ORDERED: PANTOPRAZOLE 40 MG TABLET PO SCH (07:30)
[2023-08-27] MEDS: IPRATROPIUM-ALBUTEROL 3 ML NEB INHALATION SCH ×2 (07:31→11:08)
[2023-08-27] MEDS: methylPREDNISolone SOD SUCCI 40 MG/ML 1 ML VIAL IV SCH (07:37)
[2023-08-27] MEDS: SODIUM CHLORIDE 0.9% 1,000 ML IV SCH (07:39)
[2023-08-27 07:43] VITALS: BP 163/74; TEMP 97.4
[2023-08-27] MEDS: HEPARIN SODIUM,PORCINE 5,000 UNIT/ML 1 ML VIAL SQ SCH (08:35)
[2023-08-27] MEDS: PANTOPRAZOLE 40 MG/10 ML VIAL IVP SCH (08:35)
[2023-08-27 08:59] LABS: Basophils # (A) 0.01 X 10*3/uL (0.00-0.10); Basophils % (A) 0.3 %; Eosinophils # (A) 0 X 10*3/uL (0.04-0.35); Eosinophils % (A) 0 %; HCT 42.3 % (39.6-50.0); HGB 14.3 g/dL (13.0-17.0); Lymphocytes # (A) 0.41 X 10*3/uL (0.90-5.00); Lymphocytes % (A) 13.4 %; MCHC 33.8 g/dL (32.0-37.0); MCV 94.6 FL (80.0-97.0); Mean Platelet Volume 9.9 FL (9.5-12.2); Monocytes # (A) 0.07 X 10*3/uL (0.20-1.00); Monocytes % (A) 2.3 %; NRBC Per 100 WBC 0 X 10*3/uL (0.00-0.01); Neutrophils # (A) 2.57 X 10*3/uL (1.80-7.70); Neutrophils % (A) 83.7 %; Platelet Count 182 X 10*3/uL (140-440); RBC 4.47 X 10*6/uL (4.40-5.60); RDW 13.2 % (11.5-14.5); WBC 3.07 X 10*3/uL (4.50-10.00)
--- NOTE | 2023-08-27 09:08 | P.CNOR ---
History of Present Illness - [facility] Consult date: 08/27/23 Requesting physician: Eduardo Singh Consult reason: back pain History of present illness: History of Presenting Illness Patient is a pleasant 73-year-old male who presented to the ER with complaint of back pain and abdominal pain. Mr. Vasques has been admitted to the [facility] due to abdominal pain. Our services have been consulted due to increased back pain. Patient reports he has several known vertebral compression fractures. He reports he has episodes of increased back pain with activity. He has scheduled an initial visit with our office on 09/01/23. Patient states approximately 1 week ago he was scrubbing and polishing his bathroom and kitchen floor on his hands and knees and shoveling snow when he had an increase of mid- back pain and was unable to relief his pain and had difficulty getting around the house. Patient states he lives alone and is independent. He does state his brother is close by. Patient seen and examined this morning. He reports that his symptoms of back pain has resolved since his admission. He denies any radicular symptoms or numbness/tingling to his lower extremities. Patient denies any TTP of the spine. He is able to perform bed exercises without difficulty. Patient states he has been ambulatory within room independently. Review of Systems Pertinent positives and negatives as discussed in HPI, a complete review of systems was performed and all other systems are negative. Physical Examination Inspection: Negative for any open fractures, ecchymosis, significant erythema/ulcers. Sensation: Sensation is equal, symmetric, bilaterally intact throughout the upper and lower extremities Palpation: Nontender to palpation throughout bilateral upper and lower extremities and throughout spine exam Range of motion: Patient does have full range of motion bilateral upper and lower extremities on exam Motor: 5/5 in all major motor groups in the bilateral upper and lower extremities Special tests: Negative Homans bilaterally. Negative Nikunj bilaterally. Negative clonus bilaterally. Neurovascular: Radial pulse intact, 2+ bilaterally. Cap refill under 3 seconds in digits upper extremities. Assessment and Plan CT of the Thoracic spine taken on 08/20/23 and Abd/Pelvis taken on 08/26/23 have been reviewed. Lumbar spondylosis T7, T8, T11, L1 Chronic compression fractures Mechanical mid back pain Multiple comorbidities At this time we do not recommend any emergent/urgent orthopedic surgical intervention. Patient may follow-up with Dr. Oliva office for further evaluation as needed. Orthopedics is signing off at this time. Please do not hesitate to contact us for any further questions. 2. Appreciate medical management 3. Pain management -Continue with conservative treatment, patient may benefit from muscle relaxant. 4. GI prophylaxis -Protonix 5. DVT prophylaxis -Mechanical 6. PT/OT - weightbearing as tolerated with a walker as needed. 7. Appreciate consult I reviewed and discussed this case with my attending Dr. Oliva, whom has reviewed this chart and films and is in agreement with assessment and plan of care as outlined above. I have personally seen and examined the patient, performed the documentation and the assessment and plan as written. Number of minutes spent on the visit: 20m. Past Medical History Past Medical History: COPD, GERD/Reflux, Myocardial Infarction ([place]), Pneumonia, Vascular Disorder Additional Past Medical History / Comment(s): Bronchitis, past respiratory failu re, PVD, pt states CA per EKG, beginnings of bilateral cataracts. Mass on lung, agent orange from [place]. Last Myocardial Infarction Date:: 2009 per EKG History of Any Multi-Drug Resistant Organisms: None Reported Past Surgical History: Appendectomy Additional Past Surgical History / Comment(s): Endovascular aortic repair, L iliac stent, colonoscopy Past Anesthesia/Blood Transfusion Reactions: No Reported Reaction Past Psychological History: Anxiety, Depression Additional Psychological History / Comment(s): Pt resides alone. He has a nebulizer. He drives. Smoking Status: Current every day smoker Past Alcohol Use History: Daily Additional Past Alcohol Use History / Comment(s): Patient has been smoking since 15 years old, claims to drink about 5-6 beers a day and smokes one pack a day. Smoking cessation refused. Past Drug Use History: None Reported Additional Drug Use History / Comment(s): Pt states he used marijuana in the past. Does not smoke it daily. - Past Family History Mother Family Medical History: Liver Disease Additional Family Medical History / Comment(s): liver cirrhosis Brother(s) Family Medical History: Vascular Disorder Father Family Medical History: Myocardial Infarction ([place]) Medications and Allergies Home Medications Medication Instructions Recorded Confirmed Type Omeprazole 20 mg PO DAILY 06/21/19 08/26/23 History Aspirin EC [Ecotrin Low Dose] 81 mg PO DAILY 12/11/19 08/26/23 History predniSONE 5 mg PO DAILY 10/12/22 08/26/23 History HYDROcodone/APAP 5-325MG [[place] 5] 1 tab PO Q6HR PRN 08/26/23 08/26/23 History Allergies Allergy/AdvReac Type Severity Reaction Status Date / Time bee venom protein (honey bee) Allergy Unknown Verified 08/26/23 15:17 bupropion [From Wellbutrin] Allergy Unknown Verified 08/26/23 15:17 simvastatin [From Zocor] Allergy Unknown Verified 08/26/23 15:17 Results - Labs Labs: Abnormal Lab Results - Last 24 Hours (Table) 08/26/23 08/26/23 08/26/23 Range/Units 12:14 12:14 17:20 Hgb 17.7 H (13.0-17.5) gm/dL Sodium 135 L (137-145) mmol/L Carbon Dioxide 19 L (22-30) mmol/L BUN 28 H (9-20) mg/dL Glucose 122 H (74-99) mg/dL Total Bilirubin 1.6 H (0.2-1.3) mg/dL ALT 120 H (4-49) U/L Alkaline Phosphatase 142 H (38-126) U/L Lipase 15 L (23-300) U/L Urine Protein 1+ H (Negative) Urine Ketones 2+ H (Negative) Urine Bilirubin 1+ H (Negative) Urine Mucus Few H (None) /hpf H & H 08/26/23 Range/Units 12:14 Hgb 17.7 H (13.0-17.5) gm/dL Hct 50.5 (39.0-53.0) % Result Diagrams: 08/26/23 12:14 08/26/23 12:14
--- NOTE | 2023-08-27 11:28 | P.GSCN ---
History of Present Illness Consult date: 08/27/23 History of present illness: CHIEF COMPLAINT: Abdominal pain and distention HISTORY OF PRESENT ILLNESS: This is a 73-year-old male who presented to the hospital with complaints of abdominal pain across lower abdomen and right side of the abdomen that radiated to the back x 2 days. He denies any nausea or vomiting. Does have a known history of vertebral fractures. Past surgical history does include appendectomy. He has known history of daily alcohol use. Patient had CT scan abdomen and pelvis that reported dilated fluid-filled small bowel loops extending to the lower abdomen. Some fecal debris may be within the dilated terminal ileum region. Fecal debris is through the ascending and transverse colon. No solid transition to identify obstruction is evident. Findings however appear suspicious for small bowel obstruction. Patient reports having 2 large bowel movements. He reports improvement in his abdominal pain and abdominal distention. PAST MEDICAL HISTORY: See below PAST SURGICAL HISTORY: See below MEDICATIONS: See below ALLERGIES: See below SOCIAL HISTORY: No illicit drug use. REVIEW OF SYSTEMS: CONSTITUTIONAL: Denies fever or chills. HEENT: Denies blurred vision, vision changes, or eye pain. Denies hemoptysis CARDIOVASCULAR: Denies chest pain or pressure. RESPIRATORY: No shortness of breath. GASTROINTESTINAL: See HPI for pertinent findings HEMATOLOGIC: Denies bleeding disorders. GENITOURINARY: Denies any blood in urine or increased urinary frequency. SKIN: Denies pruitis. Denies rash. PHYSICAL EXAM: VITAL SIGNS: Reviewed GENERAL: Well-developed in no acute distress. ABDOMEN: Soft. Nondistended. Nontender. Umbilical hernia reducible NEUROLOGIC: Alert and oriented. Cranial nerves II through XII grossly intact. LABORATORY DATA: WBC 3.07 HGB 14.3 plt 182 Na 135 K 4.7 Cr 1.04 Lactic acid 1.5 Total bilirubin 1.6 AST 49 ALT 120 alk phos 142 Lipase 15 Urinalysis urine color dark brown IMAGING: CT scan abdomen pelvis as stated above ASSESSMENT: 1. Abdominal pain and abdominal distention likely due to constipation. CT scan abdomen reported evidence of dilated fluid-filled small bowel loops extending into the lower abdomen. Some fecal debris with a dilated terminal ileum region and through the ascending and transverse colon. Suspicious for small bowel obstruction. PLAN: -Advance diet to low fiber -Encourage patient to ambulate -Patient to continue good bowel regimen at home -Further recommendations forthcoming per surgeon Physician Client Administrator note has been reviewed by physician. Signing provider agrees with the documented findings, assessment, and plan of care. Past Medical History Past Medical History: COPD, GERD/Reflux, Myocardial Infarction ([place]), Pneumonia, Vascular Disorder Additional Past Medical History / Comment(s): Bronchitis, past respiratory failure, PVD, pt states [place] per EKG, beginnings of bilateral cataracts. Mass on lung, agent orange from [place]. Last Myocardial Infarction Date:: 2009 per EKG History of Any Multi-Drug Resistant Organisms: None Reported Past Surgical History: Appendectomy Additional Past Surgical History / Comment(s): Endovascular aortic repair, L iliac stent, colonoscopy Past Anesthesia/Blood Transfusion Reactions: No Reported Reaction Past Psychological History: Anxiety, Depression Additional Psychological History / Comment(s): Pt resides alone. He has a nebulizer. He drives. Smoking Status: Current every day smoker Past Alcohol Use History: Daily Additional Past Alcohol Use History / Comment(s): Patient has been smoking since 15 years old, claims to drink about 5-6 beers a day and smokes one pack a day. Smoking cessation refused. Past Drug Use History: None Reported Additional Drug Use History / Comment(s): Pt states he used marijuana in the past. Does not smoke it daily. - Past Family History Mother Family Medical History: Liver Disease Additional Family Medical History / Comment(s): liver cirrhosis Brother(s) Family Medical History: Vascular Disorder Father Family Medical History: Myocardial Infarction ([place]) Medications and Allergies Home Medications Medication Instructions Recorded Confirmed Type Omeprazole 20 mg PO DAILY 06/21/19 08/26/23 History Aspirin EC [Ecotrin Low Dose] 81 mg PO DAILY 12/11/19 08/26/23 History HYDROcodone/APAP 5-325MG [[place] 1 tab PO Q6HR PRN 08/26/23 08/26/23 History 5-325] Tiotropium [place] [Spiriva] 1 puff IH DAILY #30 each 08/27/23 Rx polyethylene glycoL 3350 [Miralax] 17 gm PO DAILY #527 gm 08/27/23 Rx predniSONE [Deltasone] 40 mg PO DAILY #8 tab 08/27/23 Rx Allergies Allergy/AdvReac Type Severity Reaction Status Date / Time bee venom protein (honey bee) Allergy Unknown Verified 08/26/23 15:17 bupropion [From Wellbutrin] Allergy Unknown Verified 08/26/23 15:17 simvastatin [From Zocor] Allergy Unknown Verified 08/26/23 15:17 Surgical - Exam Vital Signs Temp Pulse Resp BP Pulse Ox 97.7 F 57 L 16 157/91 94 L 08/26/23 10:47 08/26/23 10:47 08/26/23 10:47 08/26/23 10:47 08/26/23 10:47 Results - Labs 08/27/23 04:05 08/26/23 12:14 Abnormal Lab Results - Last 24 Hours (Table) 08/26/23 08/26/23 08/26/23 Range/Units 12:14 12:14 17:20 WBC (4.50-10.00) X 10*3/uL Hgb 17.7 H (13.0-17.5) gm/dL Lymphocytes # (0.90-5.00) X 10*3/uL Monocytes # (0.20-1.00) X 10*3/uL Eosinophils # (0.04-0.35) X 10*3/uL Sodium 135 L (137-145) mmol/L Carbon Dioxide 19 L (22-30) mmol/L BUN 28 H (9-20) mg/dL Glucose 122 H (74-99) mg/dL Total Bilirubin 1.6 H (0.2-1.3) mg/dL ALT 120 H (4-49) U/L Alkaline Phosphatase 142 H (38-126) U/L Lipase 15 L (23-300) U/L Urine Protein 1+ H (Negative) Urine Ketones 2+ H (Negative) Urine Bilirubin 1+ H (Negative) Urine Mucus Few H (None) /hpf 08/27/23 Range/Units 04:05 WBC 3.07 L (4.50-10.00) X 10*3/uL Hgb (13.0-17.5) gm/dL Lymphocytes # 0.41 L (0.90-5.00) X 10*3/uL Monocytes # 0.07 L (0.20-1.00) X 10*3/uL Eosinophils # 0 L (0.04-0.35) X 10*3/uL Sodium (137-145) mmol/L Carbon Dioxide (22-30) mmol/L BUN (9-20) mg/dL Glucose (74-99) mg/dL Total Bilirubin (0.2-1.3) mg/dL ALT (4-49) U/L Alkaline Phosphatase (38-126) U/L Lipase (23-300) U/L Urine Protein (Negative) Urine Ketones (Negative) Urine Bilirubin (Negative) Urine Mucus (None) /hpf Diabetes panel 08/26/23 Range/Units 12:14 Sodium 135 L (137-145) mmol/L Potassium 4.7 (3.5-5.1) mmol/L Chloride 103 (98-107) mmol/L Carbon Dioxide 19 L (22-30) mmol/L BUN 28 H (9-20) mg/dL Creatinine 1.04 (0.66-1.25) mg/dL Glucose 122 H (74-99) mg/dL Calcium 9.7 (8.4-10.2) mg/dL AST 49 (17-59) U/L ALT 120 H (4-49) U/L Alkaline Phosphatase 142 H (38-126) U/L Total Protein 7.3 (6.3-8.2) g/dL Albumin 4.4 (3.5-5.0) g/dL Calcium panel 08/26/23 Range/Units 12:14 Calcium 9.7 (8.4-10.2) mg/dL Albumin 4.4 (3.5-5.0) g/dL Pituitary panel 08/26/23 Range/Units 12:14 Sodium 135 L (137-145) mmol/L Potassium 4.7 (3.5-5.1) mmol/L Chloride 103 (98-107) mmol/L Carbon Dioxide 19 L (22-30) mmol/L BUN 28 H (9-20) mg/dL Creatinine 1.04 (0.66-1.25) mg/dL Glucose 122 H (74-99) mg/dL Calcium 9.7 (8.4-10.2) mg/dL Adrenal panel 08/26/23 Range/Units 12:14 Sodium 135 L (137-145) mmol/L Potassium 4.7 (3.5-5.1) mmol/L Chloride 103 (98-107) mmol/L Carbon Dioxide 19 L (22-30) mmol/L BUN 28 H (9-20) mg/dL Creatinine 1.04 (0.66-1.25) mg/dL Glucose 122 H (74-99) mg/dL Calcium 9.7 (8.4-10.2) mg/dL Total Bilirubin 1.6 H (0.2-1.3) mg/dL AST 49 (17-59) U/L ALT 120 H (4-49) U/L Alkaline Phosphatase 142 H (38-126) U/L Total Protein 7.3 (6.3-8.2) g/dL Albumin 4.4 (3.5-5.0) g/dL
[2023-08-27 11:51] VITALS: PULSE 86
--- NOTE | 2023-08-27 12:27 | P.DS ---
Providers Date of admission: 08/26/23 16:29 Expected date of discharge: 08/27/23 Attending physician: Eduardo Singh MD Consults: 08/26/23 16:20 Consult Physician Urgent Consulting Provider: Gael Diaz Consult Reason/Comments: small bowel obstruction Do you want consulting provider notified?: Yes 08/26/23 17:28 Consult Physician Routine Consulting Provider: Sameer Oliva Consult Reason/Comments: back pain, patient seen in the office 1 week ago Do you want consulting provider notified?: Yes Primary care physician: [facility] Hospital Course: Discharge Diagnosis: Small bowel obstruction Anion gap metabolic acidosis Prerenal azotemia Mild hyponatremia Mild COPD exacerbation Acute on chronic back pain Hospital Course: 73-year-old male with history of AAA with stent ,COPD, nicotine dependence, dyslipidemia, GERD presenting with back pain and abdominal pain. In the ED, temperature was 97.7, pulse 57, respiratory rate 16, blood pressure 157/91, saturating at 94% on room air. WBC 5.4, hemoglobin 17.7, sodium 135, bicarb 19, anion gap 13, lactate 1.5, creatinine 1.04, BUN 28, glucose 122, total bili 1.6, AST 49, ALT 120, ALP 142. Lipase was 15. CT abdomen pelvis showed dilated fluid-filled small bowel loops extending to the lower abdomen. Some fecal debris with may be dilated terminal ileum return. No solid transition point identified. Findings suspicious for small bowel obstruction. Patient being admitted for small bowel obstruction and COPD exacerbation. General surgery was consulted. Patient had 2 large bowel movements the next morning. Able to tolerate oral intake. Will be sent home on MiraLAX. Patient did not want to wait to be seen by general surgeon. For his mild COPD exacerbation, patient will be sent on Spiriva as well as oral prednisone. Orthospine was also consulted, recommended outpatient follow-up. Patient seen and examined at bedside. Vital signs reviewed and stable. General: Nontoxic, no distress, appears at stated age Derm: Warm, dry Head: Atraumatic, normocephalic, symmetric Eyes: EOMI, no lid lag, anicteric sclera Mouth: No lip lesion, mucus membranes moist Cardiovascular: S1S2 reg, no murmur Lungs: CTA bilateral, no rhonchi, no rales, no accessory muscle use Abdominal: Soft, nontender to palpation, no guarding, no appreciable organomegaly Ext: No gross muscle atrophy, no edema, no contractures Neuro: CN II-XI grossly intact, no focal neuro deficits Psych: Alert, oriented, appropriate affect A total of 36 minutes of time were spent preparing this complex discharge summary. Patient was discharged on 08/27/2023 at 12: 24. Patient Condition at Discharge: Stable Plan - Discharge Summary Discharge Rx Participant: Yes New Discharge Prescriptions: New polyethylene glycoL 3350 [Miralax] 17 gm PO DAILY #527 gm predniSONE [Deltasone] 40 mg PO DAILY #8 tab Tiotropium [place] [Spiriva] 1 puff IH DAILY #30 each Continue Omeprazole 20 mg PO DAILY Aspirin EC [Ecotrin Low Dose] 81 mg PO DAILY HYDROcodone/APAP 5-325MG [[place] 5-325] 1 tab PO Q6HR PRN PRN Reason: Pain Discontinued predniSONE 5 mg PO DAILY Discharge Medication List Omeprazole 20 mg PO DAILY 06/21/19 [History] Aspirin EC [Ecotrin Low Dose] 81 mg PO DAILY 12/11/19 [History] HYDROcodone/APAP 5-325MG [[place] 5-325] 1 tab PO Q6HR PRN 08/26/23 [History] Tiotropium [place] [Spiriva] 1 puff IH DAILY #30 each 08/27/23 [Rx] polyethylene glycoL 3350 [Miralax] 17 gm PO DAILY #527 gm 08/27/23 [Rx] predniSONE [Deltasone] 40 mg PO DAILY #8 tab 08/27/23 [Rx] Follow up Appointment(s)/Referral(s): Sameer Oliva DO [Doctor of Osteopathic Medicine] - 09/01/23 10:50 am [facility]Clinic [Primary Care Provider] - 1-2 days Patient Instructions/Handouts: Prednisone (By mouth), Polyethylene Glycol 3350 (By mouth), Tiotropium (By breathing), COPD (Chronic Obstructive Pulmonary Disease) (DC), Bowel Obstruction (DC) Activity/Diet/Wound Care/Special Instructions: Please see your PCP and orthospine surgery. Discharge Disposition: HOME SELF-CARE
[2023-08-27 15:33] LABS: ALT 75 U/L (4-49); AST 37 U/L (17-59); African American GFR (CKD) >90 (>60 ml/min/1.73 sqM); Albumin 3.2 g/dL (3.5-5.0); Albumin/Globulin Ratio 1.4; Alkaline Phosphatase 112 U/L (38-126); Anion Gap 8 mmol/L; Blood Urea Nitrogen 31 mg/dL (9-20); Calcium 7.9 mg/dL (8.4-10.2); Carbon Dioxide 21 mmol/L (22-30); Chloride 109 mmol/L (98-107); Globulin 2.3 g/dL; Glucose 128 mg/dL (74-99); Non-African American GFR(CKD) 79 (>60 ml/min/1.73 sqM); Sodium 138 mmol/L (137-145); Total Bilirubin 0.9 mg/dL (0.2-1.3); Total Protein 5.5 g/dL (6.3-8.2)
== END 2023-08-27 13:01 | disposition home or self-care (01) | DRG 389 ==
LOC: EC 10:34 → 5NMEDONC 16:29
PROVIDERS: ADMIT Student in an Organized Health Care Education/Training Program; ATTEND Student in an Organized Health Care Education/Training Program
DX: K56.609 Unspecified intestinal obstruction, unspecified as to partial versus complete obstruction (principal); E87.1 Hypo-osmolality and hyponatremia; E87.20 Acidosis, unspecified; J44.1 Chronic obstructive pulmonary disease with (acute) exacerbation; M48.56XA Collapsed vertebra, not elsewhere classified, lumbar region, initial encounter for fracture; M54.50 Low back pain, unspecified; K21.9 Gastro-esophageal reflux disease without esophagitis; E78.5 Hyperlipidemia, unspecified; I71.40 Abdominal aortic aneurysm, without rupture, unspecified; F17.210 Nicotine dependence, cigarettes, uncomplicated; M47.816 Spondylosis without myelopathy or radiculopathy, lumbar region; F32.A Depression, unspecified; I25.2 Old myocardial infarction; F41.9 Anxiety disorder, unspecified; G89.29 Other chronic pain; R74.01 Elevation of levels of liver transaminase levels; Z79.82 Long term (current) use of aspirin; I73.9 Peripheral vascular disease, unspecified; Z82.49 Family history of ischemic heart disease and other diseases of the circulatory system; Z86.79 Personal history of other diseases of the circulatory system; Z88.6 Allergy status to analgesic agent; Z91.030 Bee allergy status; Z87.19 Personal history of other diseases of the digestive system
CPT/HCPCS: 36415; 71045; 74176; 80053; 81001; 82150; 83605; 83690; 85025; 85027; 94640; 96361; 96374; 96375; 99285

== ENCOUNTER 2023-09-14 15:08 | Inpatient (IN) | payer OTHER, MEDICARE ==
--- NOTE | 2023-09-14 16:08 | ED ---
General Adult HPI - General Chief complaint: Shortness of Breath Stated complaint: SOB Time Seen by Provider: 09/14/23 15:15 Source: patient, RN notes reviewed, old records reviewed Mode of arrival: ambulatory Limitations: no limitations - History of Present Illness Initial comments: This is a 73-year-old male who presents to the emergency department complaints of difficulty breathing. Patient is a smoker. Patient states he has been coughing and thinks he might have pneumonia because he is now coughing up green sputum. Patient denies any fever chills. Patient denies any exposure to COVID or influenza that he knows of. Patient denies chest pain at rest however he states when he coughs hard he has some sharp chest pain that lasts only as long as he is coughing. Patient denies any palpitations.. Patient denies back pain. Patient denies any abdominal pain patient denies has nausea vomiting diarrhea. - Related Data Home Medications Medication Instructions Recorded Confirmed Omeprazole 20 mg PO DAILY PRN 06/21/19 09/14/23 Aspirin EC [Ecotrin Low Dose] 81 mg PO DAILY@0630 12/11/19 09/14/23 Albuterol Sulfate [Albuterol 2 puff INHALATION RT-Q6H PRN 09/14/23 09/14/23 Sulfate Hfa] predniSONE 5 mg PO DAILY@0600 09/14/23 09/14/23 Allergies Allergy/AdvReac Type Severity Reaction Status Date / Time bee venom protein (honey bee) Allergy Unknown Verified 09/14/23 18:57 bupropion [From Wellbutrin] Allergy Unknown Verified 09/14/23 18:57 simvastatin [From Zocor] Allergy Unknown Verified 09/14/23 18:57 Review of Systems ROS Statement: Those systems with pertinent positive or pertinent negative responses have been documented in the HPI. ROS Other: All systems not noted in ROS Statement are negative. Past Medical History Past Medical History: COPD, GERD/Reflux, Myocardial Infarction (HI), Pneumonia, Vascular Disorder Additional Past Medical History / Comment(s): Bronchitis, past respiratory failure, PVD, pt states HI per EKG, beginnings of bilateral cataracts. Mass on lung, agent orange from [place]. Last Myocardial Infarction Date:: 2009 per EKG History of Any Multi-Drug Resistant Organisms: None Reported Past Surgical History: Appendectomy Additional Past Surgical History / Comment(s): Endovascular aortic repair, L iliac stent, colonoscopy Past Anesthesia/Blood Transfusion Reactions: No Reported Reaction Past Psychological History: Anxiety, Depression Smoking Status: Current every day smoker Past Alcohol Use History: Daily Past Drug Use History: None Reported - Past Family History Mother Family Medical History: Liver Disease Additional Family Medical History / Comment(s): liver cirrhosis Brother(s) Family Medical History: Vascular Disorder Father Family Medical History: Myocardial Infarction ([place]) General Exam - General Exam Comments Initial Comments: GENERAL: Patient is well-developed and well-nourished. Patient is nontoxic and well- hydrated and is in no acute distress. Patient is very intoxicated ENT: Neck is soft and supple. No significant lymphadenopathy is noted. Oropharynx is clear. Moist mucous membranes. Neck has full range of motion without eliciting any pain. EYES: The sclera were anicteric and conjunctiva were pink and moist. Extraocular movements were intact and pupils were equal round and reactive to light. Eyelids were unremarkable. PULMONARY: Unlabored respirations. Good breath sounds bilaterally. No audible rales rhon chi or wheezing was noted. CARDIOVASCULAR: There is a regular rate and rhythm without any murmurs gallops or rubs. ABDOMEN: Soft and nontender with normal bowel sounds. SKIN: Skin is clear with no lesions or rashes and otherwise unremarkable. NEUROLOGIC: Patient is alert and oriented x3. Cranial nerves II through XII are grossly intact. Motor and sensory are also intact. Normal speech, volume and content. Symmetrical smile. MUSCULOSKELETAL: Normal extremities with adequate strength and full range of motion. LYMPHATICS: No significant lymphadenopathy is noted PSYCHIATRIC: Normal psychiatric evaluation. Limitations: no limitations Course Vital Signs 09/14/23 09/14/23 09/14/23 15:12 15:22 17:16 Temperature 97.9 F Pulse Rate 84 76 Respiratory 18 24 Rate Blood Pressure 139/78 O2 Sat by Pulse 98 Oximetry 09/14/23 09/14/23 09/14/23 17:40 18:01 19:48 Temperature Pulse Rate 80 72 72 Respiratory 18 Rate Blood Pressure 160/83 O2 Sat by Pulse 93 L Oximetry 09/14/23 19:56 Temperature Pulse Rate 76 Respiratory Rate Blood Pressure O2 Sat by Pulse Oximetry Medical Decision Making - Medical Decision Making EKG is interpreted by myself but EKG shows sinus rhythm at 80 bpm NC was 212 QRS of 98 QT interval 383 QTc is 419. Patient EKG shows no ST segment ovation or depression. Was pt. sent in by a medical professional or institution ([facility]NIE Jones, [employer], urgent ca re, hospital, or fci...) When possible be specific @ -No Did you speak to anyone other than the patient for history (EMS, parent, family, police, friend...)? What history was obtained from this source @ -No Did you review nursing and triage notes (agree or disagree)? Why? @ -I reviewed and agree with nursing and triage notes Were old charts reviewed (outside hosp., previous admission, EMS record, old EKG, old radiological studies, urgent care reports/EKG's, fci records)? Report findings @ -No old charts were reviewed Differential Diagnosis (chest pain, altered mental status, abdominal pain women, abdominal pain men, vaginal bleeding, weakness, fever, dyspnea, syncope, he adache, dizziness, GI bleed, back pain, seizure, CVA, palpatations, mental health, musculoskeletal)? @ -Differential Dyspnea: Coronary syndrome, arrhythmia, tamponade, asthma, COPD, pulmonary embolism, pneumonia, pneumothorax, pulmonary effusion, anaphylaxis, diabetic ketoacidosis, flailed chest, pulmonary contusion, diaphragmatic rupture, anemia, neuromuscular, this is not meant to be an all-inclusive list. EKG interpreted by me (3pts min.). @ -As above X-rays interpreted by me (1pt min.). @ -Chest x-ray shows right lower lobe pneumonia CT interpreted by me (1pt min.). @ -None done U/S interpreted by me (1pt. min.). @ -None done What testing was considered but not performed or refused? (CT, X-rays, U/S, labs)? Why? @ -None What meds were considered but not given or refused? Why? @ -None Did you discuss the management of the patient with other professionals (professionals i.e. CONNIE Jones, [employer], lab, RT, psych nurse, social work job titles, air conditioning mechanic, teacher, community service patrol officer, case preparer and liner)? Give summary @ -I spoke with sound physicians they agreed to admit the patient admit the patient wrote admitting orders Was smoking cessation discussed for >3mins.? @ -No Was critical care preformed (if so, how long)? @ -No Were there social determinants of health that impacted care today? How? (Homelessness, low income, unemployed, alcoholism, drug addiction, transportation, low edu. Level, literacy, decrease access to med. care, intermediate, rehab)? @ -No Was there de-escalation of care discussed even if they declined (Discuss DNR or withdrawal of care, Hospice)? DNR status @ -No What co-morbidities impacted this encounter? (DM, HTN, Smoking, COPD, CAD, Cancer, CVA, ARF, Chemo, Hep., AIDS, mental health diagnosis, sleep apnea, morbid obesity)? @ -None Was patient admitted / discharged? Hospital course, mention meds given and route, prescriptions, significant lab abnormalities, going to OR and other pe rtinent info. @ -Patient has pneumonia on x-ray I did cover him with antibiotics even though it is likely to be a viral pneumonia from RSV. Undiagnosed new problem with uncertain prognosis? @ -No Drug Therapy requiring intensive monitoring for toxicity (Heparin, Nitro, Insulin, Cardizem)? @ -No Were any procedures done? @ -No Diagnosis/symptom? @ -RSV Acute, or Chronic, or Acute on Chronic? @ -Acute Uncomplicated (without systemic symptoms) or Complicated (systemic symptoms)? @ -Complicate Side effects of treatment? @ -No Exacerbation, Progression, or Severe Exacerbation? @ -No Poses a threat to life or bodily function? How? (Chest pain, [place], HI, pneumonia, PE, COPD, DKA, ARF, appy, cholecystitis, CVA, Diverticulitis, Homicidal, Suicidal, threat to staff... and all critical care pts) @ -No Diagnosis/symptom? @ -Pneumonia Acute, or Chronic, or Acute on Chronic? @ -Acute Uncomplicated (without systemic symptoms) or Complicated (systemic symptoms)? @ -Complicated Side effects of treatment? @ -None Exacerbation, Progression, or Severe Exacerbation] @ -No Poses a threat to life or bodily function? @ -Yes this can lead to hypoxia and endorgan dysfunction - Lab Data Result diagrams: 09/14/23 16:00 09/14/23 16:00 Lab Results 09/14/23 09/14/23 09/14/23 Range/Units 16:00 16:00 16:00 WBC 7.6 (3.8-10.6) k/uL RBC 4.43 (4.30-5.90) m/uL Hgb 14.1 D (13.0-17.5) gm/dL Hct 42.5 (39.0-53.0) % MCV 95.8 (80.0-100.0) fL MCH 31.8 (25.0-35.0) pg MCHC 33.2 (31.0-37.0) g/dL RDW 12.9 (11.5-15.5) % Plt Count 245 (150-450) k/uL MPV 7.2 Neutrophils % 72 % Lymphocytes % 20 % Monocytes % 5 % Eosinophils % 1 % Basophils % 0 % Neutrophils # 5.5 (1.3-7.7) k/uL Lymphocytes # 1.5 (1.0-4.8) k/uL Monocytes # 0.4 (0-1.0) k/uL Eosinophils # 0.1 (0-0.7) k/uL Basophils # 0.0 (0-0.2) k/uL PT 10.3 (10.0-12.5) sec INR 0.9 (<1.2) APTT 26.8 (22.0-30.0) sec D-Dimer 2.50 H (<0.60) mg/L FEU Sodium 134 L (137-145) mmol/L Potassium 4.5 (3.5-5.1) mmol/L Chloride 106 (98-107) mmol/L Carbon Dioxide 20 L (22-30) mmol/L Anion Gap 8 mmol/L BUN 17 (9-20) mg/dL Creatinine 0.75 (0.66-1.25) mg/dL Est GFR (CKD-EPI)AfAm >90 (>60 ml/min/1.73 sqM) Est GFR (CKD-EPI)NonAf >90 (>60 ml/min/1.73 sqM) Glucose 113 H (74-99) mg/dL Lactic Ac Sepsis Rflx Plasma Lactic Acid Jae (0.7-2.0) mmol/L Calcium 8.9 (8.4-10.2) mg/dL Magnesium 1.7 (1.6-2.3) mg/dL Total Bilirubin 0.7 (0.2-1.3) mg/dL AST 27 (17-59) U/L ALT 53 H (4-49) U/L Alkaline Phosphatase 123 (38-126) U/L Troponin I (0.000-0.034) ng/mL Total Protein 6.0 L (6.3-8.2) g/dL Albumin 3.4 L (3.5-5.0) g/dL Influenza Type A (PCR) (Not Detectd) Influenza Type B (PCR) (Not Detectd) RSV (PCR) (Not Detectd) SARS-CoV-2 (PCR) (Not Detectd) 09/14/23 09/14/23 09/14/23 Range/Units 16:00 16:00 16:20 WBC (3.8-10.6) k/uL RBC (4.30-5.90) m/uL Hgb (13.0-17.5) gm/dL Hct (39.0-53.0) % MCV (80.0-100.0) fL MCH (25.0-35.0) pg MCHC (31.0-37.0) g/dL RDW (11.5-15.5) % Plt Count (150-450) k/uL MPV Neutrophils % % Lymphocytes % % Monocytes % % Eosinophils % % Basophils % % Neutrophils # (1.3-7.7) k/uL Lymphocytes # (1.0-4.8) k/uL Monocytes # (0-1.0) k/uL Eosinophils # (0-0.7) k/uL Basophils # (0-0.2) k/uL PT (10.0-12.5) sec INR (<1.2) APTT (22.0-30.0) sec D-Dimer (<0.60) mg/L FEU Sodium (137-145) mmol/L Potassium (3.5-5.1) mmol/L Chloride (98-107) mmol/L Carbon Dioxide (22-30) mmol/L Anion Gap mmol/L BUN (9-20) mg/dL Creatinine (0.66-1.25) mg/dL Est GFR (CKD-EPI)AfAm (>60 ml/min/1.73 sqM) Est GFR (CKD-EPI)NonAf (>60 ml/min/1.73 sqM) Glucose (74-99) mg/dL Lactic Ac Sepsis Rflx Plasma Lactic Acid Jae 2.2 H* (0.7-2.0) mmol/L Calcium (8.4-10.2) mg/dL Magnesium (1.6-2.3) mg/dL Total Bilirubin (0.2-1.3) mg/dL AST (17-59) U/L ALT (4-49) U/L Alkaline Phosphatase (38-126) U/L Troponin I 0.018 (0.000-0.034) ng/mL Total Protein (6.3-8.2) g/dL Albumin (3.5-5.0) g/dL Influenza Type A (PCR) Not Detected (Not Detectd) Influenza Type B (PCR) Not Detected (Not Detectd) RSV (PCR) Detected A (Not Detectd) SARS-CoV-2 (PCR) Not Detected (Not Detectd) 09/14/23 09/14/23 Range/Units 16:36 19:06 WBC (3.8-10.6) k/uL RBC (4.30-5.90) m/uL Hgb (13.0-17.5) gm/dL Hct (39.0-53.0) % MCV (80.0-100.0) fL MCH (25.0-35.0) pg MCHC (31.0-37.0) g/dL RDW (11.5-15.5) % Plt Count (150-450) k/uL MPV Neutrophils % % Lymphocytes % % Monocytes % % Eosinophils % % Basophils % % Neutrophils # (1.3-7.7) k/uL Lymphocytes # (1.0-4.8) k/uL Monocytes # (0-1.0) k/uL Eosinophils # (0-0.7) k/uL Basophils # (0-0.2) k/uL PT (10.0-12.5) sec INR (<1.2) APTT (22.0-30.0) sec D-Dimer (<0.60) mg/L FEU Sodium (137-145) mmol/L Potassium (3.5-5.1) mmol/L Chloride (98-107) mmol/L Carbon Dioxide (22-30) mmol/L Anion Gap mmol/L BUN (9-20) mg/dL Creatinine (0.66-1.25) mg/dL Est GFR (CKD-EPI)AfAm (>60 ml/min/1.73 sqM) Est GFR (CKD-EPI)NonAf (>60 ml/min/1.73 sqM) Glucose (74-99) mg/dL Lactic Ac Sepsis Rflx Y Plasma Lactic Acid Jae 1.1 (0.7-2.0) mmol/L Calcium (8.4-10.2) mg/dL Magnesium (1.6-2.3) mg/dL Total Bilirubin (0.2-1.3) mg/dL AST (17-59) U/L ALT (4-49) U/L Alkaline Phosphatase (38-126) U/L Troponin I (0.000-0.034) ng/mL Total Protein (6.3-8.2) g/dL Albumin (3.5-5.0) g/dL Influenza Type A (PCR) (Not Detectd) Influenza Type B (PCR) (Not Detectd) RSV (PCR) (Not Detectd) SARS-CoV-2 (PCR) (Not Detectd) Disposition Clinical Impression: RSV (acute bronchiolitis due to respiratory syncytial virus), Pneumonia Disposition: ADMITTED IP TO THIS HOSP Referrals: [facility] [Primary Care Provider] - 1-2 days Time of Disposition: 20:26
[2023-09-14 16:34] LABS: ALT 53 U/L (4-49); AST 27 U/L (17-59); African American GFR (CKD) >90 (>60 ml/min/1.73 sqM); Albumin 3.4 g/dL (3.5-5.0); Alkaline Phosphatase 123 U/L (38-126); Anion Gap 8 mmol/L; Blood Urea Nitrogen 17 mg/dL (9-20); Calcium 8.9 mg/dL (8.4-10.2); Carbon Dioxide 20 mmol/L (22-30); Chloride 106 mmol/L (98-107); Glucose 113 mg/dL (74-99); Magnesium 1.7 mg/dL (1.6-2.3); Non-African American GFR(CKD) >90 (>60 ml/min/1.73 sqM); Potassium 4.5 mmol/L (3.5-5.1); Sodium 134 mmol/L (137-145); Total Bilirubin 0.7 mg/dL (0.2-1.3)
[2023-09-14 16:36] LABS: INR 0.9 (<1.2)
[2023-09-14 16:37] LABS: Partial Thromboplastin Time 26.8 sec (22.0-30.0); Prothrombin Time 10.3 sec (10.0-12.5)
[2023-09-14 16:40] LABS: Basophils % (A) 0 %; Eosinophils # (A) 0.1 k/uL (0-0.7); Eosinophils % (A) 1 %; HCT 42.5 % (39.0-53.0); Lymphocytes # (A) 1.5 k/uL (1.0-4.8); Lymphocytes % (A) 20 %; MCH 31.8 pg (25.0-35.0); MCHC 33.2 g/dL (31.0-37.0); MCV 95.8 fL (80.0-100.0); Mean Platelet Volume 7.2; Monocytes # (A) 0.4 k/uL (0-1.0); Monocytes % (A) 5 %; Neutrophils # (A) 5.5 k/uL (1.3-7.7); Neutrophils % (A) 72 %; Platelet Count 245 k/uL (150-450); RBC 4.43 m/uL (4.30-5.90); RDW 12.9 % (11.5-15.5); WBC 7.6 k/uL (3.8-10.6)
[2023-09-14 16:43] LABS: HGB 14.1 gm/dL (13.0-17.5)
--- NOTE | 2023-09-14 16:59 | XR ---
EXAMINATION: XR chest 2V: 09/14/2023 4:40 PM CLINICAL INDICATION: difficulty breathing TECHNIQUE: Departmental protocol COMPARISON: 08/26/2023 FINDINGS/IMPRESSION: There is a 6 cm ill-defined consolidation in the right lower lung zone consistent with a clinical iker gnosis of bronchopneumonia, for which six-week follow-up PA and lateral chest radiograph or CT is rec ommended to prove resolution of the abdomen only. In addition there are a few scattered subcentimeter ill-defined areas of added opacity not seen on th e prior study, in both the right lung and left lung, etiology unclear. Attention on follow-up will ad d specificity. The pleural spaces are negative. The cardiac silhouette appears enlarged, stable. Tortuous thoracic aorta redemonstrated. The skeletal structures and soft tissues are negative for acute findings.
[2023-09-14] MEDS: IPRATROPIUM 0.5 MG/2.5 ML NEBU INHALATION STA (17:16)
[2023-09-14] MEDS: ALBUTEROL NEBULIZED 2.5 MG/3 ML INHALATION STA (17:16)
[2023-09-14] MEDS ORDERED: HYDROcodone/APAP 5-325MG 1 EACH TAB PO PRN (18:00)
[2023-09-14] MEDS: cefTRIAXone IN SWFI 1,000 MG/10 ML SYRINGE IVP STA (18:02)
[2023-09-14] MEDS ORDERED: ACETAMINOPHEN TAB 325 MG TAB PO PRN (18:03)
[2023-09-14] MEDS ORDERED: MELATONIN 3 MG TABLET PO PRN (18:03)
[2023-09-14] MEDS: methylPREDNISolone SOD SUCCI 125 MG/2 ML VIAL IV STA (18:03)
[2023-09-14] MEDS ORDERED: DOCUSATE 100 MG CAP PO PRN (18:03)
[2023-09-14] MEDS ORDERED: NALOXONE 0.4 MG/ML 1 ML VIAL IV PRN (18:03)
[2023-09-14] MEDS ORDERED: ONDANSETRON 4 MG/2 ML VIAL IVP PRN (18:03)
[2023-09-14] MEDS ORDERED: PNEUMONIA PROTOCOL UTILIZED 1 EACH MISC PO PRN (18:09)
--- NOTE | 2023-09-14 18:16 | P.HPIM ---
History of Present Illness H&P Date: 09/14/23 73 year old M with PMH of COPD, GERD, CAD, PVD, L iliac stent, Anxiety and Depression, Smoker presents to the ED. He was eating a bag of chips this morning when he started to have severe coughing fit. He became extremely short of breath which prompted him to come to the ED. States he was turning blue. Attempted nebulized treatments without success. Smokes 1-2 cigarettes daily. Reports history of exposure to agent orange. Denies any chest pain, palpitations, lightheadedness. He was told in the past he requires home O2 but states he is not ready for it yet. In the ED he underwent extensive evaluation. BP 139/78 HR 84 RR 18 98% on RA 97.9F CBC and Coag panel unremarkable. D-Dimer 2.50. CMP Na 134, bicarb 20, glu 113, ALT 53, alb 3.4. Lactic acid 2.2. RSV + EKG sinus rhythm with Q waves in anterior leads CXR RLL conslidation General: non toxic, no distress, appears at stated age, frail Derm: warm, dry Head: atraumatic, normocephalic Eyes: EOMI, no lid lag, anicteric sclera Cardiovascular: S1S2 reg, no murmur Lungs: Decreased BS bilateral with expiratory wheezing, no rhonchi, no rales , no accessory muscle use Ext: no gross muscle atrophy, no edema, no contractures Neuro: no focal neuro deficits Psych: Alert, oriented, appropriate affect Based on my assessment of this patient, this patient meets a high complexity level of care. Patient has an acute diagnosis of COPD exacerbation with pneumonia that poses a threat to life or bodily function. Acute on chronic COPD exacerbation: DuoNeb QID and Q2H PRN for SOB/wheezing. SoluMedrol 60 mg IV Q6H. Symbicort 2 puff BID. Pulmonary consult. Community acquired PNA: Start Rocephin 2g IV QD and Azithromycin 500 mg PO QD. Obtain Pro-angie. BCx. Sputum Cx. Repeat CXR tomorrow morning. RSV pneumonia: Supportive management in addition to above. Elevated D-Dimer: CTA chest to rule out PE. Smoker: Encouraged to quit. Nicotine patch offered. Lactic acidosis: Encourage hydration by mouth. Trend until negative. Chronic conditions: GERD, CAD, PVD, L iliac stent, Anxiety and Depression CODE STATUS: FULL CODE DVT Prophylaxis: Lovenox SQ GI Prophylaxis: Protonix PO Designated medical POA if patient is not able to make medical decisions for themselves: Brother I have reviewed the following senior application security consultant notes: I have reviewed the results of the following tests: As above. I have ordered the following tests: As above. I have discussed the care of this patient with the following independent historian: I have independently interpreted the following test below: EKG. CXR. I have discussed the management of this patient with the following physician: ED provider in detail. Past Medical History Past Medical History: COPD, GERD/Reflux, Myocardial Infarction (DC), Pneumonia, Vascular Disorder Additional Past Medical History / Comment(s): Bronchitis, past respiratory fa ilure, PVD, pt states DC per EKG, beginnings of bilateral cataracts. Mass on lung, agent orange from [place]. Last Myocardial Infarction Date:: 2009 per EKG History of Any Multi-Drug Resistant Organisms: None Reported Past Surgical History: Appendectomy Additional Past Surgical History / Comment(s): Endovascular aortic repair, L iliac stent, colonoscopy Past Anesthesia/Blood Transfusion Reactions: No Reported Reaction Past Psychological History: Anxiety, Depression Smoking Status: Current every day smoker Past Alcohol Use History: Daily Past Drug Use History: None Reported - Past Family History Mother Family Medical History: Liver Disease Additional Family Medical History / Comment(s): liver cirrhosis Brother(s) Family Medical History: Vascular Disorder Father Family Medical History: Myocardial Infarction (DC) Medications and Allergies Home Medications Medication Instructions Recorded Confirmed Type Omeprazole 20 mg PO DAILY 06/21/19 08/26/23 History Aspirin EC [Ecotrin Low Dose] 81 mg PO DAILY 12/11/19 08/26/23 History HYDROcodone/APAP 5-325MG [Renick 1 tab PO Q6HR PRN 08/26/23 08/26/23 History 5-325] Tiotropium [place] [Spiriva] 1 puff IH DAILY #30 each 08/27/23 Rx polyethylene glycoL 3350 [Miralax] 17 gm PO DAILY #527 gm 08/27/23 Rx predniSONE [Deltasone] 40 mg PO DAILY #8 tab 08/27/23 Rx Allergies Allergy/AdvReac Type Severity Reaction Status Date / Time bee venom protein (honey bee) Allergy Unknown Verified 08/26/23 15:17 bupropion [From Wellbutrin] Allergy Unknown Verified 08/26/23 15:17 simvastatin [From Zocor] Allergy Unknown Verified 08/26/23 15:17 Physical Exam Vitals: Vital Signs Temp Pulse Resp BP Pulse Ox 09/14/23 18:01 72 18 160/83 93 L 09/14/23 17:40 80 09/14/23 17:16 76 09/14/23 15:22 24 09/14/23 15:12 97.9 F 84 18 139/78 98 Intake and Output 09/14/23 09/14/23 09/14/23 06:59 14:59 22:59 Other: Weight 74.843 kg Results CBC & Chem 7: 09/14/23 16:00 09/14/23 16:00 Labs: Abnormal Lab Results - Last 24 Hours (Table) 09/14/23 09/14/23 09/14/23 Range/Units 16:00 16:00 16:00 D-Dimer 2.50 H (<0.60) mg/L FEU Sodium 134 L (137-145) mmol/L Carbon Dioxide 20 L (22-30) mmol/L Glucose 113 H (74-99) mg/dL Plasma Lactic Acid Jae 2.2 H* (0.7-2.0) mmol/L ALT 53 H (4-49) U/L Total Protein 6.0 L (6.3-8.2) g/dL Albumin 3.4 L (3.5-5.0) g/dL RSV (PCR) (Not Detectd) 09/14/23 Range/Units 16:20 D-Dimer (<0.60) mg/L FEU Sodium (137-145) mmol/L Carbon Dioxide (22-30) mmol/L Glucose (74-99) mg/dL Plasma Lactic Acid Jae (0.7-2.0) mmol/L ALT (4-49) U/L Total Protein (6.3-8.2) g/dL Albumin (3.5-5.0) g/dL RSV (PCR) Detected A (Not Detectd)
--- NOTE | 2023-09-14 19:33 | CT ---
EXAMINATION TYPE: CT chest angio for PE DATE OF EXAM: 09/14/2023 COMPARISON: 03/12/2022 HISTORY: LIAT CT DLP: 273.3 mGycm. Automated Exposure Control for Dose Reduction was Utilized. CONTRAST: CTA scan of the thorax is performed with IV Contrast, patient injected with 100 ml mL of Is ovue 370. MIP Images are created on CT scanner and reviewed. 3D reconstructed images are created on an independent workstation and reviewed. FINDINGS: LUNGS/PLEURAL SPACES: There are multifocal ill-defined pulmonary opacities involving the lung bases, right midlung zone and right apex. There is diffuse logical bronchiectasis with bronchial wall thicke mariya, most prominent in the lung bases. There is no pleural effusion or pneumothorax. MEDIASTINUM: There is satisfactory enhancement of the pulmonary artery and its branches, and there is no CT evidence for pulmonary embolism. There is no acute aortic process, but the ascending aorta is mildly dilated, measuring up to 4.5 cm caliber. There is mild cardiomegaly without pericardial effus ion. Prominent left and right coronary calcifications are noted, in addition to aortic valve calcific ations. The esophagus is gas/fluid distended throughout its extent. There are no greater than 1 cm hilar or mediastinal lymph nodes. OTHER: No additional significant abnormality is seen. IMPRESSION: Negative for pulmonary embolism. Multifocal pulmonary findings can correlate with a clinical diagnosis of multifocal bronchopneumonia. Recommend 9 week follow-up CT to prove resolution of the findings. Prominent left and right coronary calcifications, aortic valve calcifications, and mild dilation of t he ascending aorta.
[2023-09-14] MEDS: IPRATROPIUM-ALBUTEROL 3 ML NEB INHALATION SCH (19:48)
[2023-09-14] MEDS ORDERED: BUDESONIDE 0.5 MG/2 ML NEBU INHALATION SCH (20:00)
[2023-09-14] MEDS ORDERED: FORMOTEROL FUMARATE 20 MCG/2 ML NEBU INHALATION SCH (20:00)
[2023-09-14] MEDS: AZITHROMYCIN 500 MG in SODIUM CHLORIDE 0.9% 250 ML IVPB STA (20:06)
[2023-09-14] MEDS ORDERED: DOXYCYCLINE 100 MG CAP PO SCH (21:00)
[2023-09-14] MEDS: SYMBICORT 80-4.5 MCG INHALER INHALATION SCH (21:07)
[2023-09-14] MEDS: methylPREDNISolone SOD SUCCI 125 MG/2 ML VIAL IV SCH (23:56)
[2023-09-14] MEDS ORDERED: BENZONATATE 100 MG CAP PO PRN (23:56)
--- NOTE | 2023-09-15 04:13 | P.CNPUL ---
History of Present Illness Consult date: 09/15/23 Requesting physician: Jeb Lui Reason for consult: COPD, other (RSV) Chief complaint: Shortness of breath and cough History of present illness: I am seeing this patient in consultation today September 15, 2023 in the emergency room for acute hypoxemic respiratory failure. Patient is a 73-year-old white male with past medical history significant for COPD, chronic tobacco dependence, AAA status post aortoiliac stent, hyperlipidemia, hypertension, alcoholism, among other things. Follows with a primary care provider out of the [facility] clinic. He has been seen in the pulmonary office in the past by Dr. Pollock. Patient is known to have moderate COPD with an FEV1 52% of predicted. Patient presented to the emergency room yesterday afternoon complaining of progressively worsening shortness of breath over the last 3 days. He denies any sick contacts. He lives alone. He endorses an associated cough that was originally productive with green sputum and is now nonproductive. De nies any fevers. Admits substernal chest pain that occurs with coughing. Described as sore. Nonradiating. No heart palpitations, syncopal events, or lower extremity swelling. Patient did test positive for RSV on arrival. Chest x-ray identified a right lower lobe opacity with few other scattered subcentimeter ill-defined areas of added opacity bilaterally. A follow-up chest CTA was done which was negative for pulmonary embolism. It did show multifocal pulmonary opacities consistent with bronchopneumonia. There is probable right apical scarring. CBC on arrival unremarkable. No leukocytosis. BMP on arrival: Sodium 134, potassium 4.5, chloride 106, serum bicarb 20, BUN 17, creatinine 0.75, glucose 113. Lactic acid level was 2.2 and is down to 1.1. Troponin 0.018. Patient empirically placed on a combination of azithromycin and ceftriaxone. Currently afebrile. Patient sitting up in bed, on room air, in no acute distress. Does not appear toxic or hemodynamically unstable. Review of Systems REVIEW OF SYSTEMS: CONSTITUTIONAL: Denies any recent significant weight loss or weight gain. EYES: Denies change in vision. EARS, NOSE, MOUTH, THROAT: Denies headaches, denies sore throat. CARDIOVASCULAR: Denies chest pain, palpitations or syncopal episodes. RESPIRATORY: see HPI. GASTROINTESTINAL: Denies change in appetite, abdominal pain, vomiting, or iekr rrhea. Admits intermittent nausea. GENITOURINARY: Denies hematuria, denies infections. MUSKULOSKELETAL: Denies pain, denies swelling. INTEGUMENTARY: Denies rash, denies eczema. NEUROLOGICAL: Denies recent memory loss, no recent seizure activity. PSYCHIATRIC: Denies anxiety, denies depression. HEMATOLOGIC/LYMPHATIC: Denies anemia, denies enlarged lymph node Past Medical History Past Medical History: COPD, GERD/Reflux, Myocardial Infarction ([place]), Pneumonia, Vascular Disorder Additional Past Medical History / Comment(s): Bronchitis, past respiratory failure, PVD, pt states [place] per EKG, beginnings of bilateral cataracts. Mass on l cla[place], agent orange from [place]. Last Myocardial Infarction Date:: 2009 per EKG History of Any Multi-Drug Resistant Organisms: None Reported Past Surgical History: Appendectomy Additional Past Surgical History / Comment(s): Endovascular aortic repair, L iliac stent, colonoscopy Past Anesthesia/Blood Transfusion Reactions: No Reported Reaction Past Psychological History: Anxiety, Depression Smoking Status: Current every day smoker Past Alcohol Use History: Daily Past Drug Use History: None Reported - Past Family History Mother Family Medical History: Liver Disease Additional Family Medical History / Comment(s): liver cirrhosis Brother(s) Family Medical History: Vascular Disorder Father Family Medical History: Myocardial Infarction ([place]) Medications and Allergies Home Medications Medication Instructions Recorded Confirmed Type Omeprazole 20 mg PO DAILY PRN 06/21/19 09/14/23 History Aspirin EC [Ecotrin Low Dose] 81 mg PO DAILY@0630 12/11/19 09/14/23 History Albuterol Sulfate [Albuterol 2 puff INHALATION RT-Q6H PRN 09/14/23 09/14/23 History Sulfate Hfa] predniSONE 5 mg PO DAILY@0600 09/14/23 09/14/23 History Allergies Allergy/AdvReac Type Severity Reaction Status Date / Time bee venom protein (honey bee) Allergy Unknown Verified 09/14/23 18:57 bupropion [From Wellbutrin] Allergy Unknown Verified 09/14/23 18:57 simvastatin [From Zocor] Allergy Unknown Verified 09/14/23 18:57 Physical Exam Vitals: Vital Signs Temp Pulse Resp BP Pulse Ox 09/14/23 19:56 76 09/14/23 19:48 72 09/14/23 18:01 72 18 160/83 93 L 09/14/23 17:40 80 09/14/23 17:16 76 09/14/23 15:22 24 09/14/23 15:12 97.9 F 84 18 139/78 98 Intake and Output 09/14/23 09/14/23 09/15/23 14:59 22:59 06:59 Other: Weight 74.843 kg GENERAL EXAM: Alert, 73-year-old white male, well-nourished and talkative, comfortable in no apparent distress. HEAD: Normocephalic and atraumatic EYES: Normal reaction of pupils, equal size. NOSE: Clear with pink turbinates. THROAT: No erythema or exudates. NECK: No masses, no JVD. CHEST: No chest wall deformity. LUNGS: Equal air entry with diffuse expiratory wheezes and rhonchi bilaterally and throughout. On room air. No conversational dyspnea or accessory muscle use while at rest.. CVS: S1 and S2 normal with no audible murmur, regular rhythm. No extra heart sounds ABDOMEN: No hepatosplenomegaly, active bowel sounds, no guarding or rigidity. Umbilical hernia, reducible SPINE: No scoliosis or deformity SKIN: No rashes CENTRAL NERVOUS SYSTEM: No focal deficits, tone is normal in all 4 extremities. EXTREMITIES: There is no peripheral edema, clubbing, or cyanosis. Peripheral pulses are intact. Results - Laboratory Findings CBC and BMP: 09/14/23 16:00 09/14/23 16:00 PT/INR, D-dimer PT 10.3 sec (10.0-12.5) 09/14/23 16:00 INR 0.9 (<1.2) 09/14/23 16:00 D-Dimer 2.50 mg/L FEU (<0.60) H 09/14/23 16:00 Abnormal lab findings: Abnormal Labs 09/14/23 09/14/23 09/14/23 16:00 16:00 16:00 D-Dimer 2.50 H Sodium 134 L Carbon Dioxide 20 L Glucose 113 H Plasma Lactic Acid Jae 2.2 H* ALT 53 H Total Protein 6.0 L Albumin 3.4 L RSV (PCR) 09/14/23 16:20 D-Dimer Sodium Carbon Dioxide Glucose Plasma Lactic Acid Jae ALT Total Protein Albumin RSV (PCR) Detected A - Diagnostic Findings Chest x-ray: image reviewed Assessment and Plan Assessment: Acute COPD exacerbation secondary to acute RSV infection and multifocal community acquired pneumonia. Chest CTA was done which was negative for pulmonary embolism. It did show multifocal pulmonary opacities consistent with bronchopneumonia and chronic opacity in the right upper lobe, likely scarring. Acute on chronic dyspnea, secondary to above Chronic ongoing tobacco dependence, down to approximately 1 cigarette/week History of hyperlipidemia Hypertension History of aortic abdominal aneurysm status post aortoiliac stent History of alcoholism Plan: Patient's medications, labs, imaging were reviewed. Currently on room air Continue empiric antibiotics in the form of azithromycin and Rocephin. Start patient on combination of DuoNebs, Symbicort inhaler, and IV Solu-Medrol. Tessalon Perles added as as needed antitussive Protonix for GI prophylaxis and Lovenox for DVT prophylaxis We will continue to follow, and further recommendations are forthcoming I have personally seen and examined the patient, performed the documentation and the assessment and plan as written. Number of minutes spent on the visit:20 Time with Patient: Greater than 30
[2023-09-15] MEDS: PANTOPRAZOLE 40 MG TABLET PO SCH (06:32)
[2023-09-15] MEDS: AZITHROMYCIN 500 MG TAB PO SCH (08:05)
[2023-09-15] MEDS: ASPIRIN 81 MG PO SCH (08:05)
[2023-09-15] MEDS: ENOXAPARIN 40 MG/0.4 ML SYRINGE SQ SCH (08:06)
[2023-09-15] MEDS: SYMBICORT 160-4.5 MCG INHALER INHALATION SCH (08:16)
--- NOTE | 2023-09-15 09:01 | XR ---
EXAMINATION TYPE: XR chest 1V portable DATE OF EXAM: 09/15/2023 Comparison: 09/14/2023 Clinical History: 73-year-old male pneumonia/covid/flu precautions Findings: Heart borderline in size. Hyperinflation. Focal right basilar patchy opacity persists. Background mil d interstitial densities similar. No sizable pleural effusion. Impression: COPD with borderline heart size and ongoing right basilar pneumonia.
[2023-09-15] MEDS: CALCIUM CARBONATE 500 MG CHEWABLE PO PRN (10:29)
[2023-09-15 12:37] LABS: HCT 40.5 % (39.0-53.0); HGB 13.5 gm/dL (13.0-17.5); MCHC 33.4 g/dL (31.0-37.0); MCV 95.9 fL (80.0-100.0); Mean Platelet Volume 7.2; Platelet Count 257 k/uL (150-450); RBC 4.22 m/uL (4.30-5.90); RDW 12.8 % (11.5-15.5); WBC 4.5 k/uL (3.8-10.6)
[2023-09-15 12:48] LABS: African American GFR (CKD) >90 (>60 ml/min/1.73 sqM); Anion Gap 11 mmol/L; Blood Urea Nitrogen 19 mg/dL (9-20); Calcium 8.9 mg/dL (8.4-10.2); Carbon Dioxide 21 mmol/L (22-30); Chloride 101 mmol/L (98-107); Glucose 146 mg/dL (74-99); Non-African American GFR(CKD) >90 (>60 ml/min/1.73 sqM); Potassium 4.3 mmol/L (3.5-5.1); Sodium 133 mmol/L (137-145)
[2023-09-15 13:15] VITALS: RESP 20
--- NOTE | 2023-09-15 15:12 | P.PN ---
Subjective Progress Note Date: 09/15/23 73 year old M with PMH of COPD, GERD, CAD, PVD, L iliac stent, Anxiety and Depression, Smoker presents to the ED. He was eating a bag of chips this morning when he started to have severe coughing fit. He became extremely short of breath which prompted him to come to the ED. States he was turning blue. Attempted nebulized treatments without success. Smokes 1-2 cigarettes daily. Reports history of exposure to agent orange. Denies any chest pain, palpitations, lightheadedness. He was told in the past he requires home O2 but states he is not ready for it yet. In the ED he underwent extensive evaluation. BP 139/78 HR 84 RR 18 98% on RA 97.9F CBC and Coag panel unremarkable. D-Dimer 2.50. CMP Na 134, bicarb 20, glu 113, ALT 53, alb 3.4. Lactic acid 2.2. RSV + EKG sinus rhythm with Q waves in anterior leads CXR RLL conslidation Patient was admitted for PNA and COPD exacerbation. Started on Rocephin/Azithromycin for treatment of pneumonia. Started on bronchodilators and SoluMedrol. Pulmonary consulted. 09/15 Patient was seen and examined. Slight improvement in breathing. Still feeling SOB with dry cough. On 2L NC. CTA chest no PE, multifocal bronchopneumonia. CBC RBC 4.22. BMP Ca 133, bicarb 21, glu 146. CXR shows RLL consolidation. General: non toxic, no distress, appears at stated age, frail, dyspenic speaking 2 word sentences Derm: warm, dry Head: atraumatic, normocephalic Eyes: EOMI, no lid lag, anicteric sclera Cardiovascular: S1S2 reg, no murmur Lungs: Decreased BS bilateral with expiratory wheezing, no rhonchi, no rales , no accessory muscle use Ext: no gross muscle atrophy, no edema, no contractures Neuro: no focal neuro deficits Psych: Alert, oriented, appropriate affect Based on my assessment of this patient, this patient meets a high complexity level of care. Patient has an acute diagnosis of COPD exacerbation with pneumonia that poses a threat to life or bodily function. Acute on chronic COPD exacerbation: DuoNeb QID and Q2H PRN for SOB/wheezing. SoluMedrol 60 mg IV Q6H. Symbicort 2 puff BID. Pulmonary on board. Multifocal PNA: Rocephin 2g IV QD (D2) and Azithromycin 500 mg PO QD (D2). Obtain Pro-angie. BCx. Sputum Cx. Legionella Ag. RSV pneumonia: Supportive management in addition to above. Elevated D-Dimer: PE ruled out. Smoker: Encouraged to quit. Nicotine patch offered. Resolved: Lactic acidosis Chronic conditions: GERD, CAD, PVD, L iliac stent, Anxiety and Depression CODE STATUS: FULL CODE DVT Prophylaxis: Lovenox SQ GI Prophylaxis: Protonix PO Designated medical POA if patient is not able to make medical decisions for themselves: Brother I have reviewed the following customer experience consultant notes: Pulmonary note. I have reviewed the results of the following tests: CBC, BMP, CTA chest. I have ordered the following tests: Pending: Sputum Cx, Legionella Ag, Pro-angie, BCx CBC and BMP ordered for tomorrow morning. I have discussed the care of this patient with the following independent historian: I have independently interpreted the following test below: CXR. I have discussed the management of this patient with the following physician: Objective - Vital Signs Vital signs: Vital Signs Temp 97.6 F 09/15/23 13:06 Pulse 86 09/15/23 13:06 Resp 20 09/15/23 13:06 BP 145/98 09/15/23 13:06 Pulse Ox 97 09/15/23 13:06 FiO2 Intake & Output 09/14/23 09/15/23 09/15/23 18:59 06:59 18:59 Weight 74.843 kg - Labs CBC & Chem 7: 09/15/23 12:10 09/15/23 12:10 Labs: Abnormal Lab Results - Last 24 Hours (Table) 09/14/23 09/14/23 09/14/23 Range/Units 16:00 16:00 16:00 RBC (4.30-5.90) m/uL D-Dimer 2.50 H (<0.60) mg/L FEU Sodium 134 L (137-145) mmol/L Carbon Dioxide 20 L (22-30) mmol/L Glucose 113 H (74-99) mg/dL Plasma Lactic Acid Jae 2.2 H* (0.7-2.0) mmol/L ALT 53 H (4-49) U/L Total Protein 6.0 L (6.3-8.2) g/dL Albumin 3.4 L (3.5-5.0) g/dL RSV (PCR) (Not Detectd) 09/14/23 09/15/23 09/15/23 Range/Units 16:20 12:10 12:10 RBC 4.22 L (4.30-5.90) m/uL D-Dimer (<0.60) mg/L FEU Sodium 133 L (137-145) mmol/L Carbon Dioxide 21 L (22-30) mmol/L Glucose 146 H (74-99) mg/dL Plasma Lactic Acid Jae (0.7-2.0) mmol/L ALT (4-49) U/L Total Protein (6.3-8.2) g/dL Albumin (3.5-5.0) g/dL RSV (PCR) Detected A (Not Detectd)
[2023-09-16] MEDS: IPRATROPIUM-ALBUTEROL 3 ML NEB INHALATION PRN (00:22)
[2023-09-16 07:29] LABS: HCT 40.1 % (39.0-53.0); HGB 13.3 gm/dL (13.0-17.5); MCH 31.8 pg (25.0-35.0); MCHC 33.1 g/dL (31.0-37.0); MCV 96.1 fL (80.0-100.0); Mean Platelet Volume 7.3; Platelet Count 270 k/uL (150-450); RBC 4.17 m/uL (4.30-5.90); RDW 12.9 % (11.5-15.5); WBC 7.1 k/uL (3.8-10.6)
[2023-09-16 07:36] LABS: African American GFR (CKD) >90 (>60 ml/min/1.73 sqM); Anion Gap 4 mmol/L; Blood Urea Nitrogen 23 mg/dL (9-20); Carbon Dioxide 23 mmol/L (22-30); Chloride 105 mmol/L (98-107); Glucose 139 mg/dL (74-99); Non-African American GFR(CKD) 85 (>60 ml/min/1.73 sqM); Potassium 4.7 mmol/L (3.5-5.1); Sodium 132 mmol/L (137-145)
[2023-09-16 09:31] VITALS: BP 152/94; TEMP 97.6
[2023-09-16 10:33] VITALS: PULSE 76
--- NOTE | 2023-09-16 10:44 | P.PN ---
Subjective Progress Note Date: 09/16/23 Discharge Diagnosis: Acute exacerbation of COPD Acute hypoxic respiratory failure. Now chronic and related to his COPD. Patient will require oxygen 16/02 on discharge for oxygen saturation of 86% on room air with exercise RSV pneumonia Tobacco abuse Hospital Course: Patient is a 73-year-old male with COPD, GERD, CAD, PVD, and multiple other comorbid conditions who presented to the emergency department due to extreme shortness of breath and coughing fits. In the ER he underwent extensive evaluation. On arrival his vital signs were within normal limits. Laboratory analysis was remarkable for sodium 134, carbon dioxide 20. Patient did test positive for influenza. Chest x-ray demonstrated scattered subsegmental areas ill-defined areas possible pneumonia. Patient was subsequently started on Rocephin, Zithromax, steroids, and bronchodilators. He was admitted. He underwent CTA of the chest due to an elevated D-dimer. This demonstrated no evidence of pulmonary embolism but multifocal bronchopneumonia with recommended 9-week follow-up CT. He continued to improve. His procalcitonin came back normal. His antibiotics were discontinued. His wheezing had resolved and he was determined stable for discharge. Home O2 eval did reveal oxygenation with ambulation of 86%. He was subsequently discharged with home oxygen. Follow-up: Dr. Pollock in 1 week, [facility] in 1 to 2 days. Patient will complete a 10-day steroid taper, this is due to multiple recurrent hospitalizations for difficulty breathing. Arrangements were made for home O2. Patient seen and examined at bedside. He is feeling much better. Wheezing has resolved. He is asking to be discharged home. Vital signs reviewed and stable. General: Nontoxic, no distress, appears at stated age Cardiovascular: S1S2 reg, no murmur, positive posterior tibial pulse bilateral, Lungs: Coarse breath sounds bilateral, no rhonchi, no rales, no accessory muscle use Abdominal: Soft, nontender to palpation, no guarding, no appreciable organomegaly Ext: No gross muscle atrophy, no edema b/l lower extremities, no contractures Neuro: CN II-XI grossly intact, no focal neuro deficits Psych: Alert, oriented, appropriate affect A total of 25 minutes of time were spent preparing this complex discharge summary. Patient was discharged on 09/16/2023. This dictation was prepared using [employer] voice recognition software. Though every attempt is made to correct errors during dictation some may still exist. Objective - Vital Signs Vital signs: Vital Signs Temp 97.6 F 09/16/23 08:00 Pulse 76 09/16/23 10:16 Resp 20 09/16/23 02:00 BP 152/94 09/16/23 08:00 Pulse Ox 95 09/16/23 10:16 FiO2 Intake & Output 09/15/23 09/16/23 09/16/23 18:59 06:59 18:59 Intake Total 350 240 180 Balance 350 240 180 Weight 74.843 kg Intake: Oral 350 240 180 Other: Voiding Method Toilet Urinal # Voids 2 1 1 - Labs CBC & Chem 7: 09/16/23 06:37 09/16/23 06:37 Labs: Abnormal Lab Results - Last 24 Hours (Table) 09/15/23 09/15/23 09/16/23 Range/Units 12:10 12:10 06:37 RBC 4.22 L 4.17 L (4.30-5.90) m/uL Sodium 133 L (137-145) mmol/L Carbon Dioxide 21 L (22-30) mmol/L BUN (9-20) mg/dL Glucose 146 H (74-99) mg/dL 09/16/23 Range/Units 06:37 RBC (4.30-5.90) m/uL Sodium 132 L (137-145) mmol/L Carbon Dioxide (22-30) mmol/L BUN 23 H (9-20) mg/dL Glucose 139 H (74-99) mg/dL Microbiology - Last 24 Hours (Table) 09/15/23 15:41 Gram Stain - Preliminary Sputum 09/14/23 16:57 Blood Culture - Preliminary Blood
--- NOTE | 2023-09-16 12:00 | P.DS ---
Providers Date of admission: 09/14/23 18:03 Attending physician: Jeb Lui MD Consults: 09/14/23 18:04 Consult Physician Routine Consulting Provider: Cameron Pollock Consult Reason/Comments: COPD RSV Do you want consulting provider notified?: Yes Primary care physician: [facility] Hospital Course: Discharge Diagnosis: Acute exacerbation of COPD Acute hypoxic respiratory failure. Now chronic and related to his COPD. Patient will require oxygen 16/02 on discharge for oxygen saturation of 86% on room air with exercise RSV pneumonia Tobacco abuse Hospital Course: Patient is a 73-year-old male with COPD, GERD, CAD, PVD, and multiple other comorbid conditions who presented to the emergency department due to extreme shortness of breath and coughing fits. In the ER he underwent extensive evaluation. On arrival his vital signs were within normal limits. Laboratory analysis was remarkable for sodium 134, carbon dioxide 20. Patient did test po sitive for influenza. Chest x-ray demonstrated scattered subsegmental areas ill-defined areas possible pneumonia. Patient was subsequently started on Rocephin, Zithromax, steroids, and bronchodilators. He was admitted. He underwent CTA of the chest due to an elevated D-dimer. This demonstrated no evidence of pulmonary embolism but multifocal bronchopneumonia with recommended 9-week follow-up CT. He continued to improve. His procalcitonin came back normal. His antibiotics were discontinued. His wheezing had resolved and he was determined stable for discharge. Home O2 eval did reveal oxygenation with ambulation of 86%. He was subsequently discharged with home oxygen. Follow-up: Dr. Pollock in 1 week, [facility] in 1 to 2 days. Patient will complete a 10-day steroid taper, this is due to multiple recurrent hospitalizations for difficulty breathing. Arrangements were made for home O2. Patient seen and examined at bedside. He is feeling much better. Wheezing has resolved. He is asking to be discharged home. Vital signs reviewed and stable. General: Nontoxic, no distress, appears at stated age Cardiovascular: S1S2 reg, no murmur, positive posterior tibial pulse bilateral, Lungs: Coarse breath sounds bilateral, no rhonchi, no rales, no accessory muscle use Abdominal: Soft, nontender to palpation, no guarding, no appreciable organomegaly Ext: No gross muscle atrophy, no edema b/l lower extremities, no contractures Neuro: CN II-XI grossly intact, no focal neuro deficits Psych: Alert, oriented, appropriate affect A total of 25 minutes of time were spent preparing this complex discharge summary. Patient was discharged on 09/16/2023. This dictation was prepared using [employer] voice recognition software. Though every attempt is made to correct errors during dictation some may still exist. Plan - Discharge Summary Discharge Rx Participant: Yes New Discharge Prescriptions: New predniSONE [Deltasone] 0 mg PO DIRECTED #13 tab Benzonatate [Tessalon Perles] 100 mg PO TID PRN #20 cap PRN Reason: Cough Continue Omeprazole 20 mg PO DAILY PRN PRN Reason: Gerd Aspirin EC [Ecotrin Low Dose] 81 mg PO DAILY@0630 Albuterol Sulfate [Albuterol Sulfate Hfa] 2 puff INHALATION RT-Q6H PRN PRN Reason: Shortness Of Breath predniSONE 5 mg PO DAILY@0600 Discharge Medication List Omeprazole 20 mg PO DAILY PRN 06/21/19 [History] Aspirin EC [Ecotrin Low Dose] 81 mg PO DAILY@0630 12/11/19 [History] Albuterol Sulfate [Albuterol Sulfate Hfa] 2 puff INHALATION RT-Q6H PRN 09/14/23 [History] predniSONE 5 mg PO DAILY@0600 09/14/23 [History] Benzonatate [Tessalon Perles] 100 mg PO TID PRN #20 cap 09/16/23 [Rx] predniSONE [Deltasone] 0 mg PO DIRECTED #13 tab 09/16/23 [Rx] Follow up Appointment(s)/Referral(s): Cameron Pollock MD [STAFF PHYSICIAN] - 09/25/23 10:00 am [facility],Equipment [NON-STAFF] - 1 Week (Call [facility] when you get home and they will deliver your oxygen concentrator. ) [facility] [Primary Care Provider] - 1-2 days Patient Instructions/Handouts: Using Oxygen at Home (DC) Activity/Diet/Wound Care/Special Instructions: Activity: as tolerated Diet: regular Special Instructions: Resume your prior home inhaler regiment For the next 4 days please use your nebulizer with duoneb 4 times dailly while awake, and then resume your prior regiment Do not smoke or use an open flame with your oxygen Discharge Disposition: HOME SELF-CARE
--- NOTE | 2023-09-16 12:14 | P.PN ---
Subjective Progress Note Date: 09/16/23 I am seeing this patient in consultation today September 15, 2023 in the emergency room for acute hypoxemic respiratory failure. Patient is a 73-year-old white male with past medical history significant for COPD, chronic tobacco dependence, AAA status post aortoiliac stent, hyperlipidemia, hypertension, alcoholism, among other things. Follows with a primary care provider out of the [facility]. He has been seen in the pulmonary office in the past by Dr. Pollock. Patient is known to have moderate COPD with an FEV1 52% of predicted. Patient presented to the emergency room yesterday afternoon com plaining of progressively worsening shortness of breath over the last 3 days. He denies any sick contacts. He lives alone. He endorses an associated cough that was originally productive with green sputum and is now nonproductive. Denies any fevers. Admits substernal chest pain that occurs with coughing. Described as sore. Nonradiating. No heart palpitations, syncopal events, or lower extremity swelling. Patient did test positive for RSV on arrival. Chest x-ray identified a right lower lobe opacity with few other scattered subcentimeter ill-defined areas of added opacity bilaterally. A follow-up chest CTA was done which was negative for pulmonary embolism. It did show multifocal pulmonary opacities consistent with bronchopneumonia. There is probable right apical scarring. CBC on arrival unremarkable. No leukocytosis. BMP on arrival: Sodium 134, potassium 4.5, chloride 106, serum bicarb 20, BUN 17, creatinine 0.75, glucose 113. Lactic acid level was 2.2 and is down to 1.1. Troponin 0.018. Patient empirically placed on a combination of azithromycin and ceftriaxone. Currently afebrile. Patient sitting up in bed, on room air, in no acute distress. Does not appear toxic or hemodynamically unstable. The patient is seen today September 16, 2023 and follow-up on the regular medical floor. He is up ambulating in his room. Awake and alert in no acute distress. He is maintaining O2 saturations in the 90s on 2 L/min per nasal cannula. He continues with a loose nonproductive cough. No fever or chills. Blood cultures revealed no growth. Sputum cultures reveal no growth. White count 7.1. Hemoglobin 13.3. Platelets 270. Sodium 132. Potassium 4.7. Bicarb 23. BUN 23. Creatinine 0.88. Glucose 139. Procalcitonin was 0.06. He is continued on DuoNeb ventilations, Symbicort, Solu-Medrol. Antibiotics in the form of ceftriaxone. Lovenox for DVT prophylaxis. Objective - Vital Signs Vital signs: Vital Signs Temp 97.6 F 09/16/23 08:00 Pulse 76 09/16/23 10:16 Resp 20 09/16/23 02:00 BP 152/94 09/16/23 08:00 Pulse Ox 95 09/16/23 10:16 FiO2 Intake & Output 09/15/23 09/16/23 09/16/23 18:59 06:59 18:59 Intake Total 350 240 180 Output Total 200 Balance 350 240 -20 Weight 74.843 kg Intake: Oral 350 240 180 Output: Urine 200 Other: Voiding Method Toilet Urinal # Voids 2 1 1 - Exam GENERAL EXAM: Alert, 73-year-old male, on 2 L nasal cannula, comfortable in no apparent distress. HEAD: Normocephalic and atraumatic EYES: Normal reaction of pupils, equal size. NOSE: Clear with pink turbinates. THROAT: No erythema or exudates. NECK: No masses, no JVD. CHEST: No chest wall deformity. LUNGS: Equal air entry with diffuse expiratory wheezes and rhonchi bilaterally and throughout. No conversational dyspnea. CVS: S1 and S2 normal with no audible murmur, regular rhythm. No extra heart sounds ABDOMEN: No hepatosplenomegaly, active bowel sounds, no guarding or rigidity. Umbilical hernia, reducible SPINE: No scoliosis or deformity SKIN: No rashes CENTRAL NERVOUS SYSTEM: No focal deficits, tone is normal in all 4 extremities. EXTREMITIES: There is no peripheral edema, clubbing, or cyanosis. Peripheral pulses are intact. - Labs CBC & Chem 7: 09/16/23 06:37 09/16/23 06:37 Labs: Abnormal Lab Results - Last 24 Hours (Table) 09/15/23 09/15/23 09/16/23 Range/Units 12:10 12:10 06:37 RBC 4.22 L 4.17 L (4.30-5.90) m/uL Sodium 133 L (137-145) mmol/L Carbon Dioxide 21 L (22-30) mmol/L BUN (9-20) mg/dL Glucose 146 H (74-99) mg/dL 09/16/23 Range/Units 06:37 RBC (4.30-5.90) m/uL Sodium 132 L (137-145) mmol/L Carbon Dioxide (22-30) mmol/L BUN 23 H (9-20) mg/dL Glucose 139 H (74-99) mg/dL Microbiology - Last 24 Hours (Table) 09/15/23 15:41 Gram Stain - Preliminary Sputum 09/14/23 16:57 Blood Culture - Preliminary Blood Assessment and Plan Assessment: Acute COPD exacerbation secondary to acute RSV infection. Chest CTA was done whi ch was negative for pulmonary embolism. It did show multifocal pulmonary opacities consistent with chronic opacity in the right upper lobe, likely scarring. Acute on chronic dyspnea, secondary to above Chronic ongoing tobacco dependence, down to approximately 1 cigarette/week History of hyperlipidemia Hypertension History of aortic abdominal aneurysm status post aortoiliac stent History of alcoholism Plan: The patient was seen and evaluated Labs and medications reviewed Anxious to go home Evaluate for possible home oxygen Continue bronchodilators, prednisone taper Procalcitonin was negative No need for antibiotics Follow-up in our office in 1 week I have personally seen and examined the patient, performed the documentation and the assessment and plan as written. Number of minutes spent on the visit: 10.
== END 2023-09-16 14:13 | disposition home or self-care (01) | DRG 193 ==
LOC: EC 15:08 → 4SSUR 18:03
PROVIDERS: ADMIT Family Medicine; ATTEND Family Medicine
DX: J12.1 Respiratory syncytial virus pneumonia (principal); J96.21 Acute and chronic respiratory failure with hypoxia; E87.20 Acidosis, unspecified; J44.0 Chronic obstructive pulmonary disease with (acute) lower respiratory infection; J44.1 Chronic obstructive pulmonary disease with (acute) exacerbation; I73.9 Peripheral vascular disease, unspecified; I10 Essential (primary) hypertension; F10.229 Alcohol dependence with intoxication, unspecified; F32.A Depression, unspecified; J11.08 Influenza due to unidentified influenza virus with specified pneumonia; Z99.81 Dependence on supplemental oxygen; I25.10 Atherosclerotic heart disease of native coronary artery without angina pectoris; K21.9 Gastro-esophageal reflux disease without esophagitis; F17.210 Nicotine dependence, cigarettes, uncomplicated; I25.2 Old myocardial infarction; E78.5 Hyperlipidemia, unspecified; F41.9 Anxiety disorder, unspecified; R79.89 Other specified abnormal findings of blood chemistry; R91.8 Other nonspecific abnormal finding of lung field; Z77.29 Contact with and (suspected) exposure to other hazardous substances; Z95.820 Peripheral vascular angioplasty status with implants and grafts; Z11.52 Encounter for screening for COVID-19; Z79.51 Long term (current) use of inhaled steroids; Z79.82 Long term (current) use of aspirin; Z79.52 Long term (current) use of systemic steroids; Z86.79 Personal history of other diseases of the circulatory system; Z79.899 Other long term (current) drug therapy; Z91.030 Bee allergy status; Z88.8 Allergy status to other drugs, medicaments and biological substances
CPT/HCPCS: 36415; 71045; 71046; 71275; 80048; 80053; 83605; 83735; 84145; 84484; 85025; 85027; 85379; 85610; 85730; 87040; 87070; 87205; 87636; 93005; 94640; 94760; 96365; 96366; 96367; 96372; 96375; 96376; 99285

== ENCOUNTER 2023-09-25 20:28 | Emergency (ER) | payer OTHER, MEDICARE ==
--- NOTE | 2023-09-25 20:36 | ED ---
Chest Pain HPI - General Source: patient Mode of arrival: ambulatory Limitations: no limitations <Irena Gandhi - Last Filed: 09/25/23 20:35> - General Source: patient, RN notes reviewed, old records reviewed <Sunday Gutierrez - Last Filed: 09/26/23 04:46> - General Stated Complaint: CHEST PAIN Time Seen by Provider: 09/25/23 20:35 - History of Present Illness Initial Comments: Patient is 73-year-old male presented ER chief complaint chest pain. Started this morning. Also is endorsing radiation to left arm and shortness of breath. (Irena Gandhi) Patient originally seen as a quick note. Presents for chest pain. Denies any radiation of the pain. States he believes it is likely secondary to his chronic back pain as he notices have a known compression fracture in the thoracic spine. States his pain seems to radiate from his mid back around the sides like a belt towards his front. It is worse with movement as well as when laying down in certain positions. Is somewhat chronic, mildly worse today. Presents for further evaluation at this time. Denies any shortness of breath, fevers, chills, cough. States he has a history of a thoracic aneurysm. (Sunday Gutierrez) - Related Data Home Medications Medication Instructions Recorded Confirmed Omeprazole 20 mg PO DAILY PRN 06/21/19 09/14/23 Aspirin EC [Ecotrin Low Dose] 81 mg PO DAILY@0630 12/11/19 09/14/23 Albuterol Sulfate [Albuterol 2 puff INHALATION RT-Q6H PRN 09/14/23 09/14/23 Sulfate Hfa] predniSONE 5 mg PO DAILY@0600 09/14/23 09/14/23 Previous Rx's Medication Instructions Recorded Benzonatate [Tessalon Perles] 100 mg PO TID PRN #20 cap 09/16/23 predniSONE [Deltasone] 0 mg PO DIRECTED #13 tab 09/16/23 Lidocaine 5% Patch [Lidoderm 5% 1 patch TOPICAL DAILY PRN 14 Days 09/26/23 Patch] #14 patch Allergies Allergy/AdvReac Type Severity Reaction Status Date / Time bee venom protein (honey bee) Allergy Unknown Verified 09/14/23 18:57 bupropion [From Wellbutrin] Allergy Unknown Verified 09/14/23 18:57 simvastatin [From Zocor] Allergy Unknown Verified 09/14/23 18:57 Review of Systems ROS Other: All systems not noted in ROS Statement are negative. <OksanaIrena - Last Filed: 09/25/23 20:35> ROS Other: All systems not noted in ROS Statement are negative. <Sunday Gutierrez - Last Filed: 09/26/23 04:46> ROS Statement: Those systems with pertinent positive or pertinent negative responses have been documented in the HPI. Review of Systems: CONST: Denies fever EYES: Denies blurry vision ENT: Denies nasal congestion C/V: Endorses chest pain RESP: Denies shortness of breath GI: Denies abdominal pain : Denies dysuria SKIN: Denies rash. MSK: Denies joint pain. NEURO: Denies headache (Sunday Gutierrez) EKG Findings - EKG Comments: EKG Findings:: 12-lead Electrocardiogram Interpretation Note. EKG was reviewed and interpreted by myself. 12-lead ECG performed at 2038 is interpreted by me as revealing sinus rhythm with incomplete right bundle branch block at a rate of 73 beats per minute. Indeterminate axis. IL interval is 188 ms, QRS duration is 102 ms, QTc is 442 ms. Chronic T wave inversion in V6 and aVL as well as chronic very subtle ST segment depressions in III and aVF seen on prior EKGs from at least September 2022.. There were no obvious acute ST or T wave abnormalities to suggest myocardial ischemia or injury. R wave progression across the precordium was satisfactory. By my interpretation this EKG is non- diagnostic for acute ischemia. 12-lead Electrocardiogram Interpretation Note. EKG was reviewed and interpreted by myself. 12-lead ECG performed at 2341 is interpreted by me as revealing normal sinus rhythm with incomplete right bundle branch block at a rate of 65 beats per minute. Indeterminate axis. IL interval is 208 ms, QRS duration is 102 ms, QTc is [address] segment depressions in lead III and aVF as well as redemonstrated chronic T wave inversion in V6. aVL also has chronic T wave inversion.. There were no obvious acute ST or T wave abnormalities to suggest myocardial ischemia or injury. R wave progression across the precordium was satisfactory. By my interpretation this EKG is non-diagnostic for acute ischemia. - EKG Results: EKG: interpreted by ERMD <Sunday Gutierrez - Last Filed: 09/26/23 04:46> Past Medical History Past Medical History: COPD, GERD/Reflux, Myocardial Infarction (NM), Pneumonia, Vascular Disorder Additional Past Medical History / Comment(s): Bronchitis, past respiratory failure, PVD, pt states NM per EKG, beginnings of bilateral cataracts. Mass on lung, agent orange from [place]. Last Myocardial Infarction Date:: 2009 per EKG History of Any Multi-Drug Resistant Organisms: None Reported Past Surgical History: Appendectomy Additional Past Surgical History / Comment(s): Endovascular aortic repair, L iliac stent, colonoscopy Past Anesthesia/Blood Transfusion Reactions: No Reported Reaction Past Psychological History: Anxiety, Depression Smoking Status: Former smoker Past Alcohol Use History: Daily Past Drug Use History: None Reported - Past Family History Mother Family Medical History: Liver Disease Additional Family Medical History / Comment(s): liver cirrhosis Brother(s) Family Medical History: Vascular Disorder Father Family Medical History: Myocardial Infarction (NM) <Irena Gandhi - Last Filed: 09/25/23 20:35> General Exam Limitations: no limitations <Irena Gandhi - Last Filed: 09/25/23 20:35> <Sunday Gutierrez - Last Filed: 09/26/23 04:46> - General Exam Comments Initial Comments: Visual Physical Exam Vital signs reviewed General: Well-appearing, nontoxic, no acute distress. Head: Normocephalic, atraumatic Eyes: PERRLA, EOMI ENT: Airway patent Chest: Nonlabored breathing Skin: No visual rash, normal skin tone Neuro: Alert and oriented 3 Musculoskeletal: No gross abnormalities (Irena Gandhi) General: Appears in no acute distress. HEAD: Normal with no signs of head trauma. EYES: PERRLA, EOMI, conjunctiva normal, no discharge. ENT: Hearing grossly intact, normal oropharynx. RESPIRATORY: Clear breath sounds bilaterally. No wheezes, rales, or rhonchi. C/V: Regular rate and rhythm. S1 and S2 auscultated, no edema, peripheral pulses 2+ and intact throughout. Chest pain is reproducible on palpation of the rib spaces as well as the mid thoracic spine. Reproducible on movement as well. ABD: Abd is soft, nontender, nondistended EXT: Normal range of motion, no obvious deformity SKIN: No rashes or lesions observed on exposed skin. NEURO: Alert and oriented x 4. (Sunday Gutierrez) Course Vital Signs 09/25/23 09/25/23 09/26/23 20:31 23:47 03:49 Temperature 98 F Pulse Rate 76 67 64 Respiratory 18 17 18 Rate Blood Pressure 167/84 148/82 150/83 O2 Sat by Pulse 98 99 95 Oximetry Chest Pain MDM <Irena Gandhi - Last Filed: 09/25/23 20:35> <Sunday Gutierrez - Last Filed: 09/26/23 04:46> - MDM I performed the quick note portion of the exam. Electronically signed by Irena Gandhi PA-C (Irena Gandhi) Was pt. sent in by a medical professional or institution (CONNIE Jones, SPECIAL PROGRAMS DIRECTOR, urgent care, hospital, or intermediate...) When possible be specific @ -No Did you speak to anyone other than the patient for history (EMS, parent, family, police, friend...)? What history was obtained from this source @ -No Did you review nursing and triage notes (agree or disagree)? Why? @ -I reviewed and agree with nursing and triage notes, except patient denies radiation of the left shoulder, but rather endorses radiation from the back around the sides of his chest wall towards the front of his chest. Were old charts reviewed (outside hosp., previous admission, EMS record, old EKG, old radiological studies, urgent care reports/EKG's, intermediate records)? Report findings @ -Old charts reviewed Differential Diagnosis (chest pain, altered mental status, abdominal pain women, abdominal pain men, vaginal bleeding, weakness, fever, dyspnea, syncope, headache, dizziness, GI bleed, back pain, seizure, CVA, palpatations, mental health, musculoskeletal)? @ -Differential Chest Pain: Stable Angina, Unstable Angina, STEMI, NSTEMI Aortic Dissection, Pneumothorax, Musculoskeletal, Esophageal Spasm GERD, Cholecystitis, Pancreatitis, Zoster, this is not meant to be an all-inclusive list. EKG interpreted by me (3pts min.). @ -As above X-rays interpreted by me (1pt min.). @ -Chest x-ray reveals no obvious acute cardiopulmonary process. CT interpreted by me (1pt min.). @ -CT imaging of the thoracic and abdominal aorta reveals no obvious acute findings. Patient does have the known compression fractures of L1 as well as in the thoracic spine. AAA repair is stable. U/S interpreted by me (1pt. min.). @ -None done What testing was considered but not performed or refused? (CT, X-rays, U/S, labs)? Why? @ -None What meds were considered but not given or refused? Why? @ -None Did you discuss the management of the patient with other professionals (professionals i.e. , PA, SPECIAL PROGRAMS DIRECTOR, lab, RT, psych nurse, social media designer, senior dentist, teacher, quality officer, block and case maker)? Give summary @ -No Was smoking cessation discussed for >3mins.? @ -No Was critical care preformed (if so, how long)? @ -No Were there social determinants of health that impacted care today? How? (Homelessness, low income, unemployed, alcoholism, drug addiction, transportation, low edu. Level, literacy, decrease access to med. care, care home, rehab)? @ -No Was there de-escalation of care discussed even if they declined (Discuss DNR or withdrawal of care, Hospice)? DNR status @ -No What co-morbidities impacted this encounter? (DM, HTN, Smoking, COPD, CAD, Cancer, CVA, ARF, Chemo, Hep., AIDS, mental health diagnosis, sleep apnea, morbid obesity)? @ -None Was patient admitted / discharged? Hospital course, mention meds given and route, prescriptions, significant lab abnormalities, going to OR and other pe rtinent info. @ -Patient presents for what appears to be musculoskeletal chest wall pain likely secondary to compression fractures in the T-spine however he states he has a history of a thoracic aneurysm. We will obtain CT angiogram to further evaluate as well as cardiac workup. Pain all seems to be chest wall and musculoskeletal in nature. Worse with movement and on palpation. Having radiculopathy along the intercostal spaces. Patient was in agreement with this assessment. He declines analgesia medications at this time. Vital signs are within acceptable limits. EKG shows chronic findings. CT imaging and chest x-ray revealed no obvious acute findings other than the compression fractures which are known to the patient. Troponins are unremarkable. Remainder of labs within acceptable limits. At this time, I discussed the results with the patient. He was in agreement with discharge home with close follow-up. I did offer him admission but he would prefer to be discharged and agrees that this is likely chest wall pain. He will be discharged home with lidocaine patches as well as a starter pack of Tylenol 3. I instructed the patient to follow up with their PCP in the next 1-3 days. I explained that the patient should return to the emergency department if they experience any worsening symptoms. Strict return precautions were discussed with the patient. The patient expressed understanding of these instructions. I answered all questions that the patient had. The patient was discharged home in good condition with their prescriptions and follow up information. Undiagnosed new problem with uncertain prognosis? @ -No Drug Therapy requiring intensive monitoring for toxicity (Heparin, Nitro, Insulin, Cardizem)? @ -No Were any procedures done? @ -No Diagnosis/symptom? @ -Chest wall pain, thoracic spine compression fracture, radiculopathy Acute, or Chronic, or Acute on Chronic? @ -Acute Uncomplicated (without systemic symptoms) or Complicated (systemic symptoms)? @ -Complicated Side effects of treatment? @ -No Exacerbation, Progression, or Severe Exacerbation? @ -No Poses a threat to life or bodily function? How? (Chest pain, [place], NM, pneumonia, PE, COPD, DKA, ARF, appy, cholecystitis, CVA, Diverticulitis, Homicidal, Suicidal, threat to staff... and all critical care pts) @ -Unlikely (Sunday Gutierrez) Disposition <Irena Gandhi - Last Filed: 09/25/23 20:35> Is patient prescribed a controlled substance at d/c from ED?: No Time of Disposition: 03:15 <Sunday Gutierrez - Last Filed: 09/26/23 04:46> Clinical Impression: Radiculopathy, Thoracic spine fracture, Chest wall pain Disposition: HOME SELF-CARE Condition: Good Instructions (If sedation given, give patient instructions): Thoracic Pain (ED) Prescriptions: Lidocaine 5% Patch [Lidoderm 5% Patch] 1 patch TOPICAL DAILY PRN 14 Days #14 patch PRN Reason: Pain Referrals: None,Stated [REFERRING] - 1-2 days
[2023-09-25 20:41] VITALS: TEMP 98
[2023-09-25 20:54] LABS: Basophils % (A) 0 %; Eosinophils # (A) 0.2 k/uL (0-0.7); Eosinophils % (A) 3 %; HCT 42.2 % (39.0-53.0); Lymphocytes # (A) 2.1 k/uL (1.0-4.8); Lymphocytes % (A) 25 %; MCHC 33.1 g/dL (31.0-37.0); MCV 96.7 fL (80.0-100.0); Mean Platelet Volume 6.8; Monocytes # (A) 0.5 k/uL (0-1.0); Monocytes % (A) 6 %; Neutrophils # (A) 5.5 k/uL (1.3-7.7); Neutrophils % (A) 65 %; Platelet Count 215 k/uL (150-450); RBC 4.36 m/uL (4.30-5.90); RDW 13.4 % (11.5-15.5); WBC 8.4 k/uL (3.8-10.6)
[2023-09-25 21:06] LABS: ALT 37 U/L (4-49); AST 21 U/L (17-59); African American GFR (CKD) >90 (>60 ml/min/1.73 sqM); Alkaline Phosphatase 85 U/L (38-126); Anion Gap 3 mmol/L; Blood Urea Nitrogen 16 mg/dL (9-20); Calcium 8.5 mg/dL (8.4-10.2); Carbon Dioxide 26 mmol/L (22-30); Chloride 105 mmol/L (98-107); Glucose 84 mg/dL (74-99); Magnesium 1.9 mg/dL (1.6-2.3); Non-African American GFR(CKD) 90 (>60 ml/min/1.73 sqM); Potassium 4.4 mmol/L (3.5-5.1); Sodium 134 mmol/L (137-145); Total Bilirubin 0.5 mg/dL (0.2-1.3); Total Protein 5.3 g/dL (6.3-8.2)
[2023-09-25 21:09] LABS: INR 0.9 (<1.2); Partial Thromboplastin Time 24.6 sec (22.0-30.0); Prothrombin Time 10.3 sec (10.0-12.5)
--- NOTE | 2023-09-25 21:37 | XR ---
EXAMINATION TYPE: XR chest 2V DATE OF EXAM: 09/25/2023 9:28 PM CLINICAL INDICATION:Male, 73 years old with history of Chest Pain; COMPARISON: Chest radiographs from 09/15/2023 TECHNIQUE: XR chest 2V Frontal and lateral views of the chest. FINDINGS: Lungs/Pleura: Right basilar airspace opacities. There is flattening of the diaphragm with increased l ucency of the lungs. No evidence of pneumothorax, pleural effusion or focal consolidation. Pulmonary vascularity: Unremarkable. Heart/mediastinum: Cardiomediastinal silhouette is unremarkable. Musculoskeletal: No acute osseous pathology. IMPRESSION: 1. Improved aeration of the right basilar airspace opacities as seen on prior. 2. COPD changes.
--- NOTE | 2023-09-26 02:57 | CT ---
EXAM: CT Angiography Chest Without and With Intravenous Contrast CLINICAL HISTORY: ITS.REASON CT Reason: chest pain, known thoracic aneurysm TECHNIQUE: Axial computed tomographic angiography images of the chest without and with intravenous contrast. CTDI is 67.63 mGy and DLP is 629.8 mGy-cm. This CT exam was performed using one or more of the following dose reduction techniques: automated exposure control, adjustment of the mA and/or kV according to patient size, and/or use of iterative reconstruction technique. MIP reconstructed images were created and reviewed. COMPARISON: No relevant prior studies available. FINDINGS: Thyroid gland is unremarkable as visualized. There is no mediastinal, hilar, or axillary lymphadenopathy. There is atherosclerosis of the thoracic aorta without intramural hematoma, aneurysm, or dissection. Aorta measures 4.3 cm at the root, 3. 6 cm in the mid-ascending portion, 3.6 cm at the arch, and 3.4 cm in the mid-descending portion. Main pulmonary artery is normal in caliber. There is no evidence of acute pulmonary embolism. Heart is mildly enlarged. Coronary arteries are calcified. There is a small anterior pericardial effusion. Some retained fluid in the esophagus may be due to reflux. There is a small sliding-type hiatal hernia. Lungs demonstrate moderate emphysema with pleural-parenchymal scarring at the right lung apex and in the medial right middle lobe. There is no consolidation or mass. There is no pleural effusion or pneumothorax. Bones are osteopenic. Bowing deformity of the sternal body may represent an old, healed fracture. There are chronic compression fractures at T7 and T11. There is an acute/subacute 30% T8 compression fracture without retropulsion. IMPRESSION: 1. Acute/subacute 30% T8 compression fracture without retropulsion. 2. No aortic aneurysm or dissection. No pulmonary embolism. 3. Emphysema. 4. Small hiatal hernia. Fluid in the esophagus may be on the basis of reflux. EXAM: CT Angiography Abdomen and Pelvis Without and With Intravenous Contrast CLINICAL HISTORY: ITS.REASON CT Reason: chest pain, known thoracic aneurysm TECHNIQUE: Axial computed tomographic angiography images of the abdomen and pelvis without and with intravenous contrast. CTDI is 67.63 mGy and DLP is 629. 8 mGy-cm. This CT exam was performed using one or more of the following dose reduction techniques: automated exposure control, adjustment of the mA and/or kV according to patient size, and/or use of iterative reconstruction technique. MIP reconstructed images were created and reviewed. COMPARISON: No relevant prior studies available. FINDINGS: Patient has undergone previous aortic aneurysm repair with placement of bifurcated stent graft in the infrarenal aorta extending to the bilateral common iliac arteries. Excluded aneurysm measures 5.6 x 5.9 cm. There is no evidence of endoleak. An additional vascular stent is noted in the left common iliac artery. There is aneurysmal dilatation of the right common iliac artery, including the stented portion, measuring 2.4 cm. Right common, internal, and external iliac arteries are patent. Left common and external iliac arteries are patent. 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 Celiac artery, SMA, and bilateral renal arteries are patent. IGLESIA is not visualized and may be occluded. Liver, gallbladder, spleen, pancreas, and adrenal glands are unremarkable. Kidneys enhance symmetrically. There is no hydronephrosis. Simple cortical cyst of the right kidney measures 3.5 cm; no further follow-up is required. There is no adenopathy, free fluid, or free air. There are small fat-containing umbilical and inguinal hernias. Urinary bladder and prostate are unremarkable. There are fluid distended loops of small bowel without evidence of bowel obstruction. There is a large volume of retained stool in the colon. Appendix is not identified. There is an L1 compression fracture with 50% height loss, possibly acute- on-chronic. No other fractures are visualized. IMPRESSION: 1. 50% L1 compression fracture without retropulsion, possibly acute-on- chronic. 2. Constipation. 3. Fluid distended small bowel loops without obstruction, favored to represent ileus/slow GI transit. Enteritis is a differential consideration. 4. Previous stent grafting of abdominal aortic aneurysm. Excluded aneurysm sac measures 5.6 x 5.9 cm. No evidence of endoleak. 5. 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
[2023-09-26] MEDS: ACET/COD 300 MG/30 MG STARTER PACK 6 TAB BTL PO STA (03:43)
[2023-09-26] MEDS: LIDOCAINE 4% PATCH TOPICAL ONE (03:43)
[2023-09-26 04:25] VITALS: BP 150/83; PULSE 64; RESP 18
== END 2023-09-26 03:50 | disposition home or self-care (01) ==
LOC: EC 20:28
DX: S22.060A Wedge compression fracture of T7-T8 vertebra, initial encounter for closed fracture (principal); M54.14 Radiculopathy, thoracic region; I25.2 Old myocardial infarction; J44.9 Chronic obstructive pulmonary disease, unspecified; K21.9 Gastro-esophageal reflux disease without esophagitis; Z79.82 Long term (current) use of aspirin; Z79.52 Long term (current) use of systemic steroids; Z79.899 Other long term (current) drug therapy; Z88.8 Allergy status to other drugs, medicaments and biological substances; Z91.030 Bee allergy status; Z87.891 Personal history of nicotine dependence; Z90.49 Acquired absence of other specified parts of digestive tract; X58.XXXA Exposure to other specified factors, initial encounter
CPT/HCPCS: 36415; 93005; 80053; 83735; 84484; 85025; 85610; 85730; 71046; 71275; 74174; 99285; Q9967

== ENCOUNTER 2023-11-21 18:08 | Emergency (ER) | payer MEDICARE, OTHER ==
[2023-11-21 18:52] VITALS: RESP 18; TEMP 99.7
[2023-11-21 22:23] LABS: Appearance,Urine Clear (Clear); Bilirubin,Urine Negative (Negative); Blood,Urine Negative (Negative); Color,Urine Colorless; Glucose,Urine (UA) Negative (Negative); Ketones,Urine Negative (Negative); Leukocyte Esterase,Urine Negative (Negative); Nitrite,Urine Negative (Negative); PH, Urine 5.5 (5.0-8.0); Protein,Urine Negative (Negative); Specific Gravity,Urine 1.003 (1.001-1.035); Urobilinogen,Urine <2.0 mg/dL (<2.0)
[2023-11-21 22:49] VITALS: BP 156/95; PULSE 70
[2023-11-21] MEDS ORDERED: MAGNESIUM CITRATE 296 ML BOTTLE PO ONE (22:55)
--- NOTE | 2023-11-21 22:55 | ED ---
Abdominal Pain HPI - General Chief Complaint: Abdominal Pain Stated Complaint: constipation kidney pain Time Seen by Provider: 11/21/23 18:36 Source: patient Mode of arrival: ambulatory Limitations: no limitations - History of Present Illness Initial Comments: 73-year-old male presenting with chief complaint of constipation. States that his last bowel movement was about a week ago. He has tried [id number] stool softeners and a suppository which have not helped alleviate his symptoms. He admits to bloating. No abdominal pain. No nausea or vomiting. States that time he has had blood. Patient has a hernia repair scheduled for next month. He is having no pain around his hernia and the hernia is easily reducible. No fevers or chills. - Related Data Home Medications Medication Instructions Recorded Confirmed Omeprazole 20 mg PO DAILY PRN 06/21/19 10/05/23 Aspirin EC [Ecotrin Low Dose] 81 mg PO DAILY@0630 12/11/19 10/05/23 Albuterol Sulfate [Albuterol 2 puff INHALATION RT-Q6H PRN 09/14/23 10/05/23 Sulfate Hfa] Metoprolol (Unk) 1 tab PO BID 10/05/23 10/05/23 traMADol HCL 50 mg PO Q12H PRN 10/05/23 10/05/23 Allergies Allergy/AdvReac Type Severity Reaction Status Date / Time bee venom protein (honey bee) Allergy Unknown Verified 10/05/23 13:29 bupropion [From Wellbutrin] Allergy Unknown Verified 10/05/23 13:29 simvastatin [From Zocor] Allergy Unknown Verified 10/05/23 13:29 Review of Systems ROS Statement: Those systems with pertinent positive or pertinent negative responses have been documented in the HPI. ROS Other: All systems not noted in ROS Statement are negative. Past Medical History Past Medical History: COPD, GERD/Reflux, Myocardial Infarction (MO), Pneumonia, Vascular Disorder Additional Past Medical History / Comment(s): Bronchitis, past respiratory failure, PVD, pt states MO per EKG, beginnings of bilateral cataracts. Mass on lung, agent orange from [place]. Last Myocardial Infarction Date:: 2009 per EKG History of Any Multi-Drug Resistant Organisms: None Reported Past Surgical History: Appendectomy Additional Past Surgical History / Comment(s): Endovascular aortic repair, L iliac stent, colonoscopy Past Anesthesia/Blood Transfusion Reactions: No Reported Reaction Past Psychological History: Anxiety, Depression Smoking Status: Current some day smoker Past Alcohol Use History: Rare Past Drug Use History: None Reported - Past Family History Mother Family Medical History: Liver Disease Additional Family Medical History / Comment(s): liver cirrhosis Brother(s) Family Medical History: Vascular Disorder Father Family Medical History: Myocardial Infarction ([place]) General Exam Limitations: no limitations General appearance: alert, in no apparent distress Head exam: Present: atraumatic, normocephalic Eye exam: Present: normal appearance, EOMI Neck exam: Present: normal inspection. Absent: meningismus Respiratory exam: Present: normal lung sounds bilaterally. Absent: respiratory distress, wheezes, rales, rhonchi, stridor Cardiovascular Exam: Present: regular rate, normal rhythm, normal heart sounds. Absent: systolic murmur, diastolic murmur, rubs, gallop, clicks GI/Abdominal exam: Present: soft, distended, hernia (Easily reducible umbilical hernia). Absent: tenderness, guarding, rebound, rigid Neurological exam: Present: alert, oriented X3 Psychiatric exam: Present: normal affect, normal mood Skin exam: Present: warm, dry Course Vital Signs 11/21/23 11/21/23 11/21/23 18:15 20:00 22:45 Temperature 99.7 F H Pulse Rate 80 76 70 Respiratory 18 18 18 Rate Blood Pressure 144/83 174/97 156/95 O2 Sat by Pulse 97 Oximetry Medical Decision Making - Medical Decision Making Was pt. sent in by a medical professional or institution (, PA, [facility], urgent care, hospital, or half-way...) When possible be specific @ -No Did you speak to anyone other than the patient for history (EMS, parent, family, police, friend...)? What history was obtained from this source @ -No Did you review nursing and triage notes (agree or disagree)? Why? @ -I reviewed and agree with nursing and triage notes Were old charts reviewed (outside hosp., previous admission, EMS record, old E KG, old radiological studies, urgent care reports/EKG's, half-way records)? Report findings @ -No old charts were reviewed Differential Diagnosis (chest pain, altered mental status, abdominal pain women, abdominal pain men, vaginal bleeding, weakness, fever, dyspnea, syncope, headache, dizziness, GI bleed, back pain, seizure, CVA, palpatations, mental health, musculoskeletal)? @ -Differential includes constipation, bowel obstruction, ileus, this is not an all-inclusive list EKG interpreted by me (3pts min.). @ -As above X-rays interpreted by me (1pt min.). @ -KUB x-ray shows nonspecific bowel gas pattern, could relate to constipation with fecal stasis. Also consider ileus. Unlikely to be obstructive. No free air detected. CT interpreted by me (1pt min.). @ -None done U/S interpreted by me (1pt. min.). @ -None done What testing was considered but not performed or refused? (CT, X-rays, U/S, labs)? Why? @ -None What meds were considered but not given or refused? Why? @ -None Did you discuss the management of the patient with other professionals (professionals i.e. Dr., PA, [facility], lab, RT, psych nurse, elementary school social worker, customer support engineer, teacher, security flex officer, case fitter)? Give summary @ -No Was smoking cessation discussed for >3mins.? @ -No Was critical care preformed (if so, how long)? @ -No Were there social determinants of health that impacted care today? How? (Homelessness, low income, unemployed, alcoholism, drug addiction, transportation, low edu. Level, literacy, decrease access to med. care, shelter, rehab)? @ -No Was there de-escalation of care discussed even if they declined (Discuss DNR or withdrawal of care, Hospice)? DNR status @ -No What co-morbidities impacted this encounter? (DM, HTN, Smoking, COPD, CAD, Cancer, CVA, ARF, Chemo, Hep., AIDS, mental health diagnosis, sleep apnea, morbid obesity)? @ -None Was patient admitted / discharged? Hospital course, mention meds given and route, prescriptions, significant lab abnormalities, going to OR and other pertinent info. @ -73-year-old male presenting chief complaint of constipation. Has not had a bowel movement in 1 week. History and physical exam are conducted. Abdomen is distended, no abdominal pain. Patient has an easily reducible umbilical hernia. KUB x-ray is consistent with constipation. Patient is given enema, he is able to have bowel movement and reports significant improvement in his symptoms afterwards. Urine shows no evidence of UTI. Patient is educated on supportive management and prevention of constipation at home. Advised to take magnesium citrate for constipation as needed. Discharged home. Follow-up with PCP. Report back to ER with any new or worsening symptoms. Discussed return parameters and answered all questions. Patient conveyed verbal understanding and agreed to the plan. I discussed this case in detail with my attending Dr. Burns Undiagnosed new problem with uncertain prognosis? @ -No Drug Therapy requiring intensive monitoring for toxicity (Heparin, Nitro, Insulin, Cardizem)? @ -No Were any procedures done? @ -No Diagnosis/symptom? @ -Constipation Acute, or Chronic, or Acute on Chronic? @ -Acute Uncomplicated (without systemic symptoms) or Complicated (systemic symptoms)? @ -Uncomplicated Side effects of treatment? @ -No Exacerbation, Progression, or Severe Exacerbation? @ -No Poses a threat to life or bodily function? How? (Chest pain, USA, MO, pneumonia, PE, COPD, DKA, ARF, appy, cholecystitis, CVA, Diverticulitis, Homicidal, Suicidal, threat to staff... and all critical care pts) @ -No - Lab Data Lab Results 11/21/23 Range/Units 21:57 Urine Color Colorless Urine Appearance Clear (Clear) Urine pH 5.5 (5.0-8.0) Ur Specific Floweree 1.003 (1.001-1.035) Urine Protein Negative (Negative) Urine Glucose (UA) Negative (Negative) Urine Ketones Negative (Negative) Urine Blood Negative (Negative) Urine Nitrite Negative (Negative) Urine Bilirubin Negative (Negative) Urine Urobilinogen <2.0 (<2.0) mg/dL Ur Leukocyte Esterase Negative (Negative) Disposition Clinical Impression: Constipation Disposition: HOME SELF-CARE Condition: Good Instructions (If sedation given, give patient instructions): Constipation (ED), High Fiber Diet (ED) Additional Instructions: Follow-up with your PCP. Report back to ER with any new or worsening symptoms. Take magnesium citrate if needed Is patient prescribed a controlled substance at d/c from ED?: No Referrals: [facility],Clinic [Primary Care Provider] - 1-2 days Time of Disposition: 22:55
--- NOTE | 2023-11-22 01:33 | XR ---
EXAMINATION TYPE: XR KUB DATE OF EXAM: 11/21/2023 8:09 PM CLINICAL INDICATION:Male, 73 years old with history of constipation; [facility] COMPARISON: CT 09/26/2023 TECHNIQUE: Upright radiographic view/s of the abdomen/pelvis obtained. FINDINGS: There is mild to moderate gaseous prominence throughout the small and large bowel, with a moderate am ount of stool also through the colon to the rectum. There are a couple of air-fluid levels in the sma ll bowel. No definite free intraperitoneal air. No pathologic calcifications can be seen. There are multiple vascular stents seen, likely aortic and bilateral iliac. Surgical clips over the p kiersten and left inguinal region. Generalized osteopenia and moderate degenerative changes of the spine. IMPRESSION: 1. Nonspecific bowel gas pattern, could relate to constipation with fecal stasis. Also consider ileus. Unlikely to be obstructive. 2. No free air detected. 3. If there is persistent clinical concern, follow-up radiographs or CT may be obtained for better ev aluation.
== END 2023-11-21 23:35 | disposition home or self-care (01) ==
LOC: EC 18:08
DX: K59.00 Constipation, unspecified (principal); F17.200 Nicotine dependence, unspecified, uncomplicated; Z88.8 Allergy status to other drugs, medicaments and biological substances; Z91.030 Bee allergy status
CPT/HCPCS: 51798; 74018; 81003; 99284

== ENCOUNTER 2023-11-29 10:46 | Emergency (ER) | payer MEDICARE, OTHER ==
[2023-11-29 11:05] VITALS: BP 146/73; PULSE 83; RESP 16; TEMP 98
--- NOTE | 2023-11-29 12:45 | ED ---
Abdominal Pain HPI - General Chief Complaint: Abdominal Pain Stated Complaint: RECTAL PAIN Time Seen by Provider: 11/29/23 11:30 Source: patient, RN notes reviewed Mode of arrival: ambulatory Limitations: no limitations - History of Present Illness Initial Comments: 73-year-old male with history of constipation presenting to the ER with chief complaint of rectal pain x 2 days. Patient said he felt bumps near his rectum. He takes stool softeners for chronic constipation but states he has not had a bowel movement in 2 days. Denies fever, abdominal pain, rectal bleeding, black stools. - Related Data Home Medications Medication Instructions Recorded Confirmed Omeprazole 20 mg PO DAILY PRN 06/21/19 10/05/23 Aspirin EC [Ecotrin Low Dose] 81 mg PO DAILY@0630 12/11/19 10/05/23 Albuterol Sulfate [Albuterol 2 puff INHALATION RT-Q6H PRN 09/14/23 10/05/23 Sulfate Hfa] Metoprolol (Unk) 1 tab PO BID 10/05/23 10/05/23 traMADol HCL 50 mg PO Q12H PRN 10/05/23 10/05/23 Previous Rx's Medication Instructions Recorded Hydrocortisone [Anusol-Hc] 1 applic RECTAL BID PRN #30 gm 11/29/23 Allergies Allergy/AdvReac Type Severity Reaction Status Date / Time bee venom protein (honey bee) Allergy Unknown Verified 10/05/23 13:29 bupropion [From Wellbutrin] Allergy Unknown Verified 10/05/23 13:29 simvastatin [From Zocor] Allergy Unknown Verified 10/05/23 13:29 Review of Systems ROS Statement: Those systems with pertinent positive or pertinent negative responses have been documented in the HPI. ROS Other: All systems not noted in ROS Statement are negative. Past Medical History Past Medical History: COPD, GERD/Reflux, Myocardial Infarction ([place]), Pneumonia, Vascular Disorder Additional Past Medical History / Comment(s): Bronchitis, past respiratory failure, PVD, pt states MO per EKG, beginnings of bilateral cataracts. Mass on lung, agent orange from [place]. Last Myocardial Infarction Date:: 2009 per EKG History of Any Multi-Drug Resistant Organisms: None Reported Past Surgical History: Appendectomy Additional Past Surgical History / Comment(s): Endovascular aortic repair, L iliac stent, colonoscopy Past Anesthesia/Blood Transfusion Reactions: No Reported Reaction Past Psychological History: Anxiety, Depression Smoking Status: Current some day smoker Past Alcohol Use History: Rare Past Drug Use History: None Reported - Past Family History Mother Family Medical History: Liver Disease Additional Family Medical History / Comment(s): liver cirrhosis Brother(s) Family Medical History: Vascular Disorder Father Family Medical History: Myocardial Infarction ([place]) General Exam Limitations: no limitations General appearance: alert, in no apparent distress Respiratory exam: Present: normal lung sounds bilaterally. Absent: respiratory distress, wheezes, rales, rhonchi, stridor Cardiovascular Exam: Present: regular rate, normal rhythm, normal heart sounds. Absent: systolic murmur, diastolic murmur, rubs, gallop, clicks GI/Abdominal exam: Present: soft, normal bowel sounds. Absent: distended, tenderness, guarding, rebound, rigid Rectal exam: Present: normal rectal tone, hemorrhoids, tenderness, other (Director Of Perioperative Services present for rectal exam. Tender, blueberry sized external hemorrhoid present. There is no erythema or signs of strangulation.) Psychiatric exam: Present: normal affect, normal mood Skin exam: Present: warm, dry, intact, normal color. Absent: rash Course Vital Signs 11/29/23 10:58 Temperature 98 F Pulse Rate 83 Respiratory 16 Rate Blood Pressure 146/73 O2 Sat by Pulse 98 Oximetry Medical Decision Making - Medical Decision Making Was pt. sent in by a medical professional or institution ([facility], [facility], urgent care, hospital, or assisted...) When possible be specific @ -No Did you speak to anyone other than the patient for history (EMS, parent, family, police, friend...)? What history was obtained from this source @ -No Did you review nursing and triage notes (agree or disagree)? Why? @ -I reviewed and agree with nursing and triage notes Were old charts reviewed (outside hosp., previous admission, EMS record, old EKG, old radiological studies, urgent care reports/EKG's, assisted records)? Report findings @ -No old charts were reviewed Differential Diagnosis (chest pain, altered mental status, abdominal pain women, abdominal pain men, vaginal bleeding, weakness, fever, dyspnea, syncope, headache, dizziness, GI bleed, back pain, seizure, CVA, palpatations, mental health, musculoskeletal)? @ -Hemorrhoid, strangulated hemorrhoid, anal fissure, constipation, prostatitis EKG interpreted by me (3pts min.). @ -None X-rays interpreted by me (1pt min.). @ -None done CT interpreted by me (1pt min.). @ -None done U/S interpreted by me (1pt. min.). @ -None done What testing was considered but not performed or refused? (CT, X-rays, U/S, labs)? Why? @ -Recommended KUB for assessment of constipation however patient declined What meds were considered but not given or refused? Why? @ -None Did you discuss the management of the patient with other professionals (professionals i.e. , PA, [facility], lab, RT, psych nurse, social media executive, head host/hostess, teacher, business development officer, case maker)? Give summary @ -No Was smoking cessation discussed for >3mins.? @ -No Was critical care preformed (if so, how long)? @ -No Were there social determinants of health that impacted care today? How? (Homelessness, low income, unemployed, alcoholism, drug addiction, tra nsportation, low edu. Level, literacy, decrease access to med. care, halfway, rehab)? @ -No Was there de-escalation of care discussed even if they declined (Discuss DNR or withdrawal of care, Hospice)? DNR status @ -No What co-morbidities impacted this encounter? (DM, HTN, Smoking, COPD, CAD, Cancer, CVA, ARF, Chemo, Hep., AIDS, mental health diagnosis, sleep apnea, morbid obesity)? @ -None Was patient admitted / discharged? Hospital course, mention meds given and route, prescriptions, significant lab abnormalities, going to OR and other pertinent info. @ -Patient was discharged. Patient was seen and evaluated for rectal pain for 2 days. Rectal exam revealed nonstrangulated hemorrhoid. No red flag symptoms present. Discussed with patient hemorrhoid is likely due to constipation. Supportive care discussed. Strict return/alarm symptoms discussed with patient in detail and patient shows understanding and agrees. Follow-up with PCP in 1 to 3 days. Prescribed Anusol cream. Patient discharged in stable condition. Case discussed with Dr. Fuller. Undiagnosed new problem with uncertain prognosis? @ -No Drug Therapy requiring intensive monitoring for toxicity (Heparin, Nitro, Insulin, Cardizem)? @ -No Were any procedures done? @ -No Diagnosis/symptom? @ -Nonstrangulated hemorrhoid Acute, or Chronic, or Acute on Chronic? @ -Acute Uncomplicated (without systemic symptoms) or Complicated (systemic symptoms)? @ -Uncomplicated Side effects of treatment? @ -No Exacerbation, Progression, or Severe Exacerbation? @ -No Poses a threat to life or bodily function? How? (Chest pain, USA, MO, pneumonia, PE, COPD, DKA, ARF, appy, cholecystitis, CVA, Diverticulitis, Homicidal, Suicidal, threat to staff... and all critical care pts) @ -No Disposition Clinical Impression: Hemorrhoid Disposition: HOME SELF-CARE Condition: Stable Instructions (If sedation given, give patient instructions): Hemorrhoids (ED) Additional Instructions: Please follow-up with PCP in 1 to 3 days. Please return to the Emergency Department if symptoms worsen or any other concerns. Prescriptions: Hydrocortisone [Anusol-Hc] 1 applic RECTAL BID PRN #30 gm PRN Reason: Pain Is patient prescribed a controlled substance at d/c from ED?: No Referrals: [facility],Clinic [Primary Care Provider] - 1-2 days Time of Disposition: 12:44
== END 2023-11-29 13:05 | disposition home or self-care (01) ==
LOC: EC 10:46
DX: K64.4 Residual hemorrhoidal skin tags (principal); F17.200 Nicotine dependence, unspecified, uncomplicated; Z91.030 Bee allergy status; Z88.8 Allergy status to other drugs, medicaments and biological substances
CPT/HCPCS: 99283

== ENCOUNTER → 2023-12-09 | Outpatient (CLI) | payer MEDICARE, OTHER ==
[2023-12-09 08:05] LABS: African American GFR (CKD) >90 (>60 ml/min/1.73 sqM); Blood Urea Nitrogen 11 mg/dL (9-20); Non-African American GFR(CKD) >90 (>60 ml/min/1.73 sqM)
--- NOTE | 2023-12-09 18:31 | CT ---
EXAMINATION TYPE: CT chest w con CT DLP: 388 mGycm, Automated exposure control for dose reduction was used. DATE OF EXAM: 12/09/2023 8:35 AM COMPARISON: CT chest 09/14/2023. Thoracoabdominal pelvis aorta 09/26/23 CLINICAL INDICATION:Male, 73 years old with history of R91.8 OTHER NONSPECIFIC ABNORMAL FINDING OF BELL NG F; PHH, f/u lung nodule TECHNIQUE: Multiple axial images were obtained through the chest following the administration of 100 cc of Isovue 300. . Coronal and sagittal reformats reviewed. FINDINGS: LUNGS/ PLEURA: Mild centrilobular emphysematous changes. Some linear scarring or atelectasis within t he anterior right middle lobe. No pleural effusions. No pneumothorax. Increased spiculated thickening identified within the right upper lobe measuring 4.3 x 1.1 cm (series 4, image 18). Surrounding sca rring and pleural parenchymal thickening identified. AIRWAY: Patent and unremarkable.. HEART: Size within normal limits.Increased density within the coronary arteries may relate to scleros is versus vascular stents.. MEDIASTINUM: No gross evidence of adenopathy. VASCULATURE: No thoracic aortic aneurysm. Partial visualization of abdominal aortic stent graft Athe rosclerotic calcification of the aorta and its branches. MUSCULOSKELETAL: Subacute compression fracture with sclerosis involving the T6 vertebral body with ap proximately 10% height loss. Subacute to chronic compression fracture involving the T8 vertebral body with sclerosis demonstrated. Approximately 30% height loss. Chronic compression deformity of the L1 vertebral body with approximately 30% height loss. Increase in Schmorl's node involving the inferior endplate. Subacute appearing compression fracture with sclerosis involving the L4 vertebral body with approximately 20% diameter loss. No overall significant retropulsion identified. Remote sternal frac ture suggested. SOFT TISSUES/LYMPH NODES: Unremarkable. LOWER NECK: No significant findings. UPPER ABDOMEN: Debris/fluid demonstrated within the distal esophagus. Small sliding-type hiatal herni a. Partial visualization of right renal cyst measuring up to 3.9 cm. IMPRESSION: 1. Increased spiculated thickening identified within the right upper lobe with surrounding scarring demonstrated. Raises concern for developing lung neoplasm. Consider further evaluation with PET/CT. 2. Chronic compression deformity of T8 and L1 vertebral bodies with subacute compression deformities of the T6 and L4 vertebral bodies. 3. Mild COPD. 4. Debris/fluid identified within the distal esophagus with small hiatal hernia. May represent reflu x.
== END | disposition home or self-care (01) ==
LOC: RADCTMAIN 07:27
PROVIDERS: ATTEND Internal Medicine
DX: M48.54XA Collapsed vertebra, not elsewhere classified, thoracic region, initial encounter for fracture (principal); M48.56XA Collapsed vertebra, not elsewhere classified, lumbar region, initial encounter for fracture; J44.9 Chronic obstructive pulmonary disease, unspecified; K44.9 Diaphragmatic hernia without obstruction or gangrene; R91.8 Other nonspecific abnormal finding of lung field
CPT/HCPCS: 82565; 84520; 71260; 36415; Q9967

== ENCOUNTER 2023-12-16 11:29 | Day surgery (SDC) | payer MEDICARE, OTHER ==
[2023-12-11 16:08] VITALS: BMI 24.3
[~2023-12-16 11:29] MED LIST changes: -ALBUMIN HUMAN 5% 250 ML in EMPTY BAG 1 BAG IVPB ONE; -CALCIUM CHLORIDE 100 MG/ML 10 ML SYRINGE IVP ONE; -CHLORHEXIDINE GLUCONATE 15 ML CUP MUCOUS MEM ONE; -EPINEPHrine 10 ML SYRINGE (0.1 MG/ML) IV ONE; -HEPARIN SODIUM 1,000 UN/ML (10ML VL) IV ONE; +LIDOCAINE 1% (10MG/ML) FOR IV START INTRADERMA PRN; -NITROGLYCERIN-D5W PMX 50 MG in DEXTROSE/WATER 1 250ML.BAG IV ONE; -NOREPINEPHRINE 4 MG in SODIUM CHLORIDE 0.9% 250 ML IV ONE; -PHENYLEPHRINE 10 MG/ML VIAL IV ONE; -SODIUM BICARB 8.4% 50 ML SYR (1 MEQ/ML) IV ONE
[2023-12-16] MEDS: NA PHOS,M-B/NA PHOS,DI-BA 133 ML ENEMA RECTAL ONE (12:20)
[2023-12-16] MEDS: LACTATED RINGERS 1,000 ML IV SCH (12:34)
[2023-12-16 12:35] LABS: Glucose,Whole Blood 80 mg/dL (70-110)
[2023-12-16 12:36] VITALS: TEMP 98.2
[2023-12-16] MEDS ORDERED: PROPOFOL 10 MG/ML 20 ML VIAL IV ONE (12:59)
--- NOTE | 2023-12-16 13:31 | P.PCN ---
Date of Procedure: 12/16/23 Procedure(s) Performed: BRIEF HISTORY: Patient is a 73-year-old pleasant white male scheduled for an elective colonoscopy as a part of evaluation of patient bowel habits and hronic constipation for the last 3 months duration. PROCEDURE PERFORMED: Colonoscopy with snare polypectomy. PREOPERATIVE DIAGNOSIS: Change in bowel habits a few months duration. IV sedation per Anesthesia. PROCEDURE: After informed consent was obtained, the patient, was brought into the endoscopy unit. IV sedation was administered by Anesthesia under continuous monitoring. Digital rectal examination was normal. Initially the Olympus CF-160 flexible video colonoscope was then inserted in the rectum, gradually advanced into the cecum without any difficulty. Careful examination was performed as the scope was gradually being withdrawn. Ileocecal valve and the appendiceal orifice were visualized and appeared normal. Prep was poor in several areas of the colon.. Mucosa of the cecum 1 cm polyp removed by snare polypectomy. Rest of the, ascending colon, transverse colon, descending colon, sigmoid colon, and rectum appeared normal. Sigmoid colon there was a 5 mm polyp removed by snare polypectomy. Retroflexion was performed in the rectum and no lesions were seen. The patient tolerated the procedure well. IMPRESSION: 1 cm cecal polyp status post snare polypectomy 7 mm sigmoid polyp status post polypectomy RECOMMENDATIONS: Findings of this examination were discussed with the patient as well as his family. He was advised to follow-up with the biopsy results. Continue with osmotic laxatives and high-fiber diet.. The biopsy was adenoma recommended repeat colonoscopy in 5 years
[2023-12-16 14:36] VITALS: BP 159/94; PULSE 87; RESP 20
== END 2023-12-16 14:30 | disposition home or self-care (01) ==
LOC: ORWHC2ENDO 11:29
PROVIDERS: ATTEND Internal Medicine Gastroenterology
DX: K59.00 Constipation, unspecified (principal); J44.9 Chronic obstructive pulmonary disease, unspecified; I73.9 Peripheral vascular disease, unspecified; K21.9 Gastro-esophageal reflux disease without esophagitis; Z79.82 Long term (current) use of aspirin; Z79.899 Other long term (current) drug therapy; Z90.49 Acquired absence of other specified parts of digestive tract; Z90.89 Acquired absence of other organs; Z98.890 Other specified postprocedural states
CPT/HCPCS: 88305; 45385; J2704

== ENCOUNTER → 2023-12-27 | Outpatient (CLI) | payer OTHER ==
--- NOTE | 2023-12-28 13:39 | PE ---
EXAMINATION TYPE: PET CT fusion skull to thigh DATE OF EXAM: 12/27/2023 COMPARISON: 12/09/2023 Prior PET/CT: None HISTORY: Lung mass TECHNIQUE: Following the intravenous administration of 12.58 mCi of F-18 FDG, whole body images are performed from the skull base to the midthigh. Images are reviewed on the computer in the coronal, a xial, and sagittal planes. Reconstructed rotating images are created on independent workstation and reviewed on the computer. A localization and attenuation correction CT is performed in conjunction with the PET scan. DLP: 3-6.04 mGycm SCAN: Initial Blood glucose: 107 mg/dL Average Mediastinum SUV: 1.52 Average Liver SUV: 1.59 FINDINGS: NECK: There is a focal uptake within the left neck, image 50, SUV 3.52. There is a focal area of uptake in the right supraclavicular region, image 76, SUV 3.55. Milder uptak e is within additional nodules on the right, example image 77, SUV 2.68. THORAX: There is intense uptake within the right posterior lateral apical mass, example image 91, SUV 4.88. Intense activity is along the medial aspect of this mass, image 93, SUV 6.17. Along the inferior ante rior lateral margin this has an SUV of 6.21, example image 93. Uptake within the aortopulmonic window, image 104 has an SUV of 3.25. A left suprahilar uptake image 107 has an SUV of 2.71. Uptake is in the infrahilar regions, example image 120, SUV 3.05 on the left. SUV 3.09 on the right. There is intense uptake within a small density at the cardiac apex level within the lingula, image 13 4, SUV 5.29 Note is made of mild uptake within the anterior lateral right mid lung, image 111, SUV 1.44. Addition al mild uptake is in the anterior right lung base. These are nonspecific and could be related to infl ammatory change. Early metastatic disease could be considered ABDOMEN: No abnormal uptake PELVIS: No abnormal uptake OSSEOUS STRUCTURES: No abnormal uptake LOCALIZATION CT: Prior abdominal aortic aneurysm repair is evident. COMPARISON: Findings appear similar IMPRESSION: 1. Focal areas of increased uptake within the right upper lobe masslike density suspicious for neopla sm. 2. There are scattered hilar and mediastinal areas of uptake suspicious for small metastatic lymph no beth. 3. Right supraclavicular and left neck foci of uptake suspicious for possible metastasis. 4. There is some mild uptake within the right mid and lower lung franklin not clearly evident on lung windows. Mild inflammatory changes are favored. Early metastasis is considered less likely.
== END | disposition home or self-care (01) ==
LOC: RADPETMAIN 08:49
PROVIDERS: ATTEND Internal Medicine
DX: R91.8 Other nonspecific abnormal finding of lung field (principal); J98.4 Other disorders of lung
CPT/HCPCS: 78815; A9552

== ENCOUNTER 2023-12-29 11:10 | Emergency (ER) | payer OTHER, MEDICARE ==
[2023-12-29 11:24] VITALS: BP 121/72; TEMP 98.9
--- NOTE | 2023-12-29 13:17 | XR ---
EXAMINATION TYPE: XR chest 2V DATE OF EXAM: 12/29/2023 COMPARISON: 09/25/2023 HISTORY: 73-year-old male with cough and shortness of breath TECHNIQUE: PA and lateral views FINDINGS: Heart normal size. Aorta within normal limits. Hyperinflation. Improved aeration at the medial right base. Increasing irregular opacity at the right apex. Patchy opacity also increasing at the retrocard iac region. Partially visualized upper abdominal aorto endovascular stent graft. No pleural effusion. IMPRESSION: COPD with increasing irregular opacity at the right apex (neoplasm and/or pneumonia; refer to recent PET/CT 12/27/2023) and increasing patchy left basilar opacity, possible pneumonia.
--- NOTE | 2023-12-29 13:20 | ED ---
General Adult HPI - General Chief complaint: Shortness of Breath Stated complaint: Pneumonia Time Seen by Provider: 12/29/23 12:40 Source: patient, RN notes reviewed, old records reviewed Mode of arrival: ambulatory Limitations: no limitations - History of Present Illness Initial comments: This is a 73-year-old male who presents to the emergency department complaining of a cough for the last few days and very short of breath. Patient states he is a smoker he continues to smoke. Patient has been diagnosed with COPD. Patient states he is not coughing anything up but he feels like he needs to. Patient denies any fever or chills. Patient states he has sharp chest pain. Patient denies any abdominal pain patient has nausea vomiting diarrhea. Patient has lightheadedness or dizziness. Patient [place] any numbness weakness - Related Data Home Medications Medication Instructions Recorded Confirmed Aspirin EC [Ecotrin Low Dose] 81 mg PO DAILY 12/11/19 12/29/23 Dextromethorphan Polistirex 60 mg PO Q12H 12/29/23 12/29/23 [Delsym] polyethylene glycoL 3350 [Miralax] 17 gm PO DAILY 12/29/23 12/29/23 Previous Rx's Medication Instructions Recorded Albuterol Inhaler [Ventolin Hfa 1 - 2 puff INHALATION Q6HR PRN #2 12/29/23 Inhaler] each Levofloxacin [Levaquin] 750 mg PO DAILY #10 tab 12/29/23 predniSONE [Deltasone] 40 mg PO DAILY #8 tab 12/29/23 Allergies Allergy/AdvReac Type Severity Reaction Status Date / Time bee venom protein (honey bee) Allergy Unknown Verified 12/29/23 13:18 tape AdvReac Rash/Hives Uncoded 12/29/23 13:18 Review of Systems ROS Statement: Those systems with pertinent positive or pertinent negative responses have been documented in the HPI. ROS Other: All systems not noted in ROS Statement are negative. Past Medical History Past Medical History: COPD, GERD/Reflux, Myocardial Infarction ([place]), Pneumonia, Vascular Disorder Additional Past Medical History / Comment(s): Bronchitis, past respiratory failure, PVD, pt states [place] per EKG, beginnings of bilateral cataracts. Mass on lung, agent orange from [place]. Last Myocardial Infarction Date:: 2009 per EKG History of Any Multi-Drug Resistant Organisms: None Reported Past Surgical History: Appendectomy Additional Past Surgical History / Comment(s): Endovascular aortic repair, L iliac stent, colonoscopy Past Anesthesia/Blood Transfusion Reactions: No Reported Reaction Additional Past Anesthesia/Blood Transfusion Reaction / Comment(s): no blood transfusion Past Psychological History: Anxiety, Depression Smoking Status: Current every day smoker Past Alcohol Use History: None Reported Past Drug Use History: None Reported - Past Family History Mother Family Medical History: Liver Disease Additional Family Medical History / Comment(s): liver cirrhosis Brother(s) Family Medical History: Vascular Disorder Father Family Medical History: Myocardial Infarction ([place]) General Exam - General Exam Comments Initial Comments: GENERAL: Patient is well-developed and well-nourished. Patient is nontoxic and well- hydrated and is in mild distress. ENT: Neck is soft and supple. No significant lymphadenopathy is noted. Oropharynx is clear. Moist mucous membranes. Neck has full range of motion without eliciting any pain. EYES: The sclera were anicteric and conjunctiva were pink and moist. Extraocular movements were intact and pupils were equal round and reactive to light. Eyelids were unremarkable. PULMONARY: Patient has expiratory wheezing. Patient also is coughing quite a bit CARDIOVASCULAR: There is a regular rate and rhythm without any murmurs gallops or rubs. ABDOMEN: Soft and nontender with normal bowel sounds. No palpable organomegaly was noted. There is no palpable pulsatile mass. SKIN: Skin is clear with no lesions or rashes and otherwise unremarkable. NEUROLOGIC: Patient is alert and oriented x3. Cranial nerves II through XII are grossly intact. Motor and sensory are also intact. Normal speech, volume and content. Symmetrical smile. MUSCULOSKELETAL: Normal extremities with adequate strength and full range of motion. No lower extremity swelling or edema. No calf tenderness. LYMPHATICS: No significant lymphadenopathy is noted PSYCHIATRIC: Normal psychiatric evaluation. Limitations: no limitations Course Vital Signs 12/29/23 12/29/23 12/29/23 11:22 12:40 14:08 Temperature 98.9 F Pulse Rate 81 87 Respiratory 24 16 Rate Blood Pressure 121/72 O2 Sat by Pulse 98 Oximetry Medical Decision Making - Medical Decision Making EKG is interpreted by myself EKG shows a sinus rhythm at 65 bpm parables 220 QRS is 104 QT interval is 420 QTc is 431. Patient's EKG shows no ST segment ovation or depression. Was pt. sent in by a medical professional or institution (CONNIE Jones, AIR FORCE SENIOR OFFICER, urgent care, hospital, or fci...) When possible be specific @ -No Did you speak to anyone other than the patient for history (EMS, parent, family, police, friend...)? What history was obtained from this source @ -No Did you review nursing and triage notes (agree or disagree)? Why? @ -I reviewed and agree with nursing and triage notes Were old charts reviewed (outside hosp., previous admission, EMS record, old EKG, old radiological studies, urgent care reports/EKG's, fci records)? Report findings @ -I reviewed a prior chest x-ray from a prior admission to the hospital and a new infiltrate in comparison to the old x-ray patient had scarring that was similar to that x-ray. Differential Diagnosis (chest pain, altered mental status, abdominal pain women, abdominal pain men, vaginal bleeding, weakness, fever, dyspnea, syncope, headache, dizziness, GI bleed, back pain, seizure, CVA, palpatations, mental health, musculoskeletal)? @ -Differential Dyspnea: Coronary syndrome, arrhythmia, tamponade, asthma, COPD, pulmonary embolism, pneumonia, pneumothorax, pulmonary effusion, anaphylaxis, diabetic ketoacidosis, flailed chest, pulmonary contusion, diaphragmatic rupture, anemia, neuromuscular, this is not meant to be an all-inclusive list. EKG interpreted by me (3pts min.). @ -As above X-rays interpreted by me (1pt min.). @ -Chest x-ray shows an infiltrate left lower lobe CT interpreted by me (1pt min.). @ -CT scan shows no pulmonary embolism but does show a left lower lobe infiltrate U/S interpreted by me (1pt. min.). @ -None done What testing was considered but not performed or refused? (CT, X-rays, U/S, labs)? Why? @ -None What meds were considered but not given or refused? Why? @ -None Did you discuss the management of the patient with other professionals (professionals i.e. CONNIE Jones, AIR FORCE SENIOR OFFICER, lab, RT, psych nurse, secondary social studies teacher, bulk tank car unloader, teacher, guest relations officer, comp field case manager)? Give summary @ -No Was smoking cessation discussed for >3mins.? @ -No Was critical care preformed (if so, how long)? @ -No Were there social determinants of health that impacted care today? How? (Homelessness, low income, unemployed, alcoholism, drug addiction, transportation, low edu. Level, literacy, decrease access to med. care, longterm, rehab)? @ -No Was there de-escalation of care discussed even if they declined (Discuss DNR or withdrawal of care, Hospice)? DNR status @ -No What co-morbidities impacted this encounter? (DM, HTN, Smoking, COPD, CAD, Cancer, CVA, ARF, Chemo, Hep., AIDS, mental health diagnosis, sleep apnea, morbid obesity)? @ -None Was patient admitted / discharged? Hospital course, mention meds given and route, prescriptions, significant lab abnormalities, going to OR and other pertinent info. @ -Patient left AMA after he had a couple breathing treatments and did not wait for his results from the CAT scan so I will call the patient's meds into the pharmacy left Undiagnosed new problem with uncertain prognosis? @ -No Drug Therapy requiring intensive monitoring for toxicity (Heparin, Nitro, Insulin, Cardizem)? @ -No Were any procedures done? @ -No Diagnosis/symptom? @ -Pneumonia Acute, or Chronic, or Acute on Chronic? @ -Acute Uncomplicated (without systemic symptoms) or Complicated (systemic symptoms)? @ -Complicated Side effects of treatment? @ -No Exacerbation, Progression, or Severe Exacerbation? @ -No Poses a threat to life or bodily function? How? (Chest pain, [place], [place], pneumonia, PE, COPD, DKA, ARF, appy, cholecystitis, CVA, Diverticulitis, Homicidal, Suicidal, threat to staff... and all critical care pts) @ -Yes this could lead to sepsis and endorgan dysfunction - Lab Data Result diagrams: 12/29/23 13:41 12/29/23 13:41 Lab Results 12/29/23 12/29/23 12/29/23 Range/Units 13:41 13:41 13:41 WBC 6.8 (3.8-10.6) k/uL RBC 3.83 L (4.30-5.90) m/uL Hgb 12.4 L (13.0-17.5) gm/dL Hct 38.0 L (39.0-53.0) % MCV 99.3 (80.0-100.0) fL MCH 32.4 (25.0-35.0) pg MCHC 32.7 (31.0-37.0) g/dL RDW 14.6 (11.5-15.5) % Plt Count 228 (150-450) k/uL MPV 7.2 Neutrophils % 80 % Lymphocytes % 13 % Monocytes % 5 % Eosinophils % 0 % Basophils % 0 % Neutrophils # 5.4 (1.3-7.7) k/uL Lymphocytes # 0.9 L (1.0-4.8) k/uL Monocytes # 0.4 (0-1.0) k/uL Eosinophils # 0.0 (0-0.7) k/uL Basophils # 0.0 (0-0.2) k/uL PT 10.5 (10.0-12.5) sec INR 0.9 (<1.2) APTT 29.3 (22.0-30.0) sec D-Dimer 3.47 H (<0.60) mg/L FEU Sodium 132 L (137-145) mmol/L Potassium 3.9 (3.5-5.1) mmol/L Chloride 104 (98-107) mmol/L Carbon Dioxide 25 (22-30) mmol/L Anion Gap 3 mmol/L BUN 16 (9-20) mg/dL Creatinine 0.68 (0.66-1.25) mg/dL Est GFR (CKD-EPI)AfAm >90 (>60 ml/min/1.73 sqM) Est GFR (CKD-EPI)NonAf >90 (>60 ml/min/1.73 sqM) Glucose 110 H (74-99) mg/dL Plasma Lactic Acid Jae (0.7-2.0) mmol/L Calcium 8.9 (8.4-10.2) mg/dL Magnesium 2.0 (1.6-2.3) mg/dL Total Bilirubin 0.8 (0.2-1.3) mg/dL AST 16 L (17-59) U/L ALT 17 (4-49) U/L Alkaline Phosphatase 96 (38-126) U/L Troponin I (0.000-0.034) ng/mL Total Protein 5.8 L (6.3-8.2) g/dL Albumin 3.3 L (3.5-5.0) g/dL 06/04/24 06/04/24 Range/Units 13:41 13:41 WBC (3.8-10.6) k/uL RBC (4.30-5.90) m/uL Hgb (13.0-17.5) gm/dL Hct (39.0-53.0) % MCV (80.0-100.0) fL MCH (25.0-35.0) pg MCHC (31.0-37.0) g/dL RDW (11.5-15.5) % Plt Count (150-450) k/uL MPV Neutrophils % % Lymphocytes % % Monocytes % % Eosinophils % % Basophils % % Neutrophils # (1.3-7.7) k/uL Lymphocytes # (1.0-4.8) k/uL Monocytes # (0-1.0) k/uL Eosinophils # (0-0.7) k/uL Basophils # (0-0.2) k/uL PT (10.0-12.5) sec INR (<1.2) APTT (22.0-30.0) sec D-Dimer (<0.60) mg/L FEU Sodium (137-145) mmol/L Potassium (3.5-5.1) mmol/L Chloride (98-107) mmol/L Carbon Dioxide (22-30) mmol/L Anion Gap mmol/L BUN (9-20) mg/dL Creatinine (0.66-1.25) mg/dL Est GFR (CKD-EPI)AfAm (>60 ml/min/1.73 sqM) Est GFR (CKD-EPI)NonAf (>60 ml/min/1.73 sqM) Glucose (74-99) mg/dL Plasma Lactic Acid Jae 1.7 (0.7-2.0) mmol/L Calcium (8.4-10.2) mg/dL Magnesium (1.6-2.3) mg/dL Total Bilirubin (0.2-1.3) mg/dL AST (17-59) U/L ALT (4-49) U/L Alkaline Phosphatase (38-126) U/L Troponin I <0.012 (0.000-0.034) ng/mL Total Protein (6.3-8.2) g/dL Albumin (3.5-5.0) g/dL Disposition Clinical Impression: Pneumonia Disposition: LEFT AGAINST MEDICAL ADVICE Prescriptions: predniSONE [Deltasone] 40 mg PO DAILY #8 tab Levofloxacin [Levaquin] 750 mg PO DAILY #10 tab Albuterol Inhaler [Ventolin Hfa Inhaler] 1 - 2 puff INHALATION Q6HR PRN #2 each PRN Reason: Difficulty breathing Is patient prescribed a controlled substance at d/c from ED?: No Referrals: [facility],Clinic [Primary Care Provider] - 1-2 days Time of Disposition: 16:26
[2023-12-29] MEDS: SODIUM CHLORIDE 0.9% 500 ML 500 ML IV STA (13:35)
[2023-12-29] MEDS: methylPREDNISolone SOD SUCCI 125 MG/2 ML VIAL IV STA (13:36)
[2023-12-29] MEDS: cefTRIAXone IN SWFI 1,000 MG/10 ML SYRINGE IVP STA ×2 (13:36→13:39)
[2023-12-29] MEDS: ALBUTEROL NEBULIZED 2.5 MG/3 ML INHALATION STA (13:45)
[2023-12-29] MEDS: IPRATROPIUM 0.5 MG/2.5 ML NEBU INHALATION STA (13:45)
[2023-12-29 13:58] LABS: Basophils % (A) 0 %; Eosinophils % (A) 0 %; HGB 12.4 gm/dL (13.0-17.5); Lymphocytes # (A) 0.9 k/uL (1.0-4.8); Lymphocytes % (A) 13 %; MCH 32.4 pg (25.0-35.0); MCHC 32.7 g/dL (31.0-37.0); MCV 99.3 fL (80.0-100.0); Mean Platelet Volume 7.2; Monocytes # (A) 0.4 k/uL (0-1.0); Monocytes % (A) 5 %; Neutrophils # (A) 5.4 k/uL (1.3-7.7); Neutrophils % (A) 80 %; Platelet Count 228 k/uL (150-450); RBC 3.83 m/uL (4.30-5.90); RDW 14.6 % (11.5-15.5); WBC 6.8 k/uL (3.8-10.6)
[2023-12-29 14:09] VITALS: PULSE 87
[2023-12-29 14:20] LABS: INR 0.9 (<1.2); Partial Thromboplastin Time 29.3 sec (22.0-30.0); Prothrombin Time 10.5 sec (10.0-12.5)
[2023-12-29 14:21] LABS: ALT 17 U/L (4-49); AST 16 U/L (17-59); African American GFR (CKD) >90 (>60 ml/min/1.73 sqM); Albumin 3.3 g/dL (3.5-5.0); Alkaline Phosphatase 96 U/L (38-126); Anion Gap 3 mmol/L; Blood Urea Nitrogen 16 mg/dL (9-20); Calcium 8.9 mg/dL (8.4-10.2); Carbon Dioxide 25 mmol/L (22-30); Chloride 104 mmol/L (98-107); Glucose 110 mg/dL (74-99); Non-African American GFR(CKD) >90 (>60 ml/min/1.73 sqM); Potassium 3.9 mmol/L (3.5-5.1); Sodium 132 mmol/L (137-145); Total Bilirubin 0.8 mg/dL (0.2-1.3); Total Protein 5.8 g/dL (6.3-8.2)
[2023-12-29] MEDS: SODIUM CHLORIDE 0.9% 1,000 ML IV ONE (14:52)
[2023-12-29 15:46] VITALS: RESP 16
--- NOTE | 2023-12-29 15:59 | CT ---
EXAMINATION TYPE: CT chest angio for PE CT DLP: 257.9 mGycm, Automated exposure control for dose reduction was used. DATE OF EXAM: 12/29/2023 3:17 PM COMPARISON: CT chest 0 1923. CLINICAL INDICATION:Male, 73 years old with history of Elevated D-dimer; emphysema, shortness of derrick th and pneumonia on the prior exam. Previous negative PE TECHNIQUE/CONTRAST: CTA scan of the thorax is performed with IV Contrast, patient injected with 100 ml mL of Isovue 370, MIP images are created and reviewed these are created on a separate workstation.. FINDINGS: Pulmonary Artery: There is no evidence for a filling defect within the pulmonary vasculature to sugge st acute pulmonary embolism. The pulmonary artery is of normal size. Lungs/Pleura: Patchy areas of scarring are present. Scarring in the right upper lobe now appears to have associated post obstruction pneumonia. Bronchiol itis obliterans with organizing pneumonia is another possibility. Other etiologies are not excluded.. Previous right middle lobe and right lower lobe airspace consolidation has resolved. Groundglass air space disease in the left lower lobe is new and moderate in size. Airway: Large airways are patent. Heart: Upper limits normal in size. Moderately pronounced calcific coronary artery disease. Vasculature: Ascending aorta is dilated. 4.5 cm. Mediastinum: No gross evidence of adenopathy.. Dilated esophagus throughout. Questionable previous ga stric pull-through or extensive hiatal hernia Musculoskeletal: No acute osseous abnormalities Soft Tissues: Unremarkable. Lower neck: No significant findings. Upper Abdomen: No significant findings. IMPRESSION: 1. No evidence of pulmonary embolism. 2. Right upper lobe scarring and scar related pneumonia, left lower lobe pneumonia
== END 2023-12-29 15:40 | disposition left against medical advice (07) ==
LOC: EC 11:10
DX: J18.9 Pneumonia, unspecified organism (principal); F17.200 Nicotine dependence, unspecified, uncomplicated; Z91.030 Bee allergy status; Z53.29 Procedure and treatment not carried out because of patient's decision for other reasons; Z91.048 Other nonmedicinal substance allergy status
CPT/HCPCS: 36415; 94640; 93005; 85379; 80053; 83605; 83735; 84484; 85025; 85610; 85730; 87040; 71046; 71275; 99285; 96374; 96375; 96376; 96361 ×2; J0696; Q9967; J2919

== ENCOUNTER 2024-03-02 16:23 | Inpatient (IN) | payer OTHER, MEDICARE ==
[~2024-03-02 16:23] MED LIST changes: +IPRATROPIUM-ALBUTEROL 3 ML NEB ONE; -LIDOCAINE 1% (10MG/ML) FOR IV START INTRADERMA PRN; +MORPHINE SULFATE 4 MG/ML SYRINGE ONE
[2024-03-02] MEDS ORDERED: methylPREDNISolone SOD SUCCI 125 MG/2 ML VIAL ONE (16:33)
[2024-03-02] MEDS ORDERED: lisinopriL 10 MG TAB ONE (18:15)
--- NOTE | 2024-04-01 14:51 | XR ---
EXAMINATION TYPE: XR chest 2V DATE OF EXAM: 03/02/2024 COMPARISON: Chest radiographs from 02/16/2024 TECHNIQUE: XR chest 2V Frontal and lateral views of the chest. CLINICAL INDICATION:Male, 73 years old with history of SOB; FINDINGS: Lungs/Pleura: No pleural effusion or pneumothorax. Stable right apical pleural-based opacity from [place] or examination. Flattening of the hemidiaphragms. Pulmonary vascularity: Unremarkable. Heart/mediastinum: Cardiomediastinal silhouette is unremarkable. Musculoskeletal: Multiple level degenerative disc disease changes seen throughout the spine. IMPRESSION: 1. No acute cardiopulmonary disease/process. 2. COPD with stable right apical pleural-based opacity from prior exam. Correlate for history of mal ignancy.
--- NOTE | 2024-04-01 14:56 | XR ---
EXAMINATION TYPE: XR KUB DATE OF EXAM: 04/01/2024 COMPARISON: PET CT 12/27/23, KUB radiograph 11/21/2023 HISTORY: Pain TECHNIQUE: Single upright KUB image of the abdomen is obtained FINDINGS: Moderate amount stool is present throughout the colon. Few air-fluid levels within the small bowel. No convincing evidence for pneumoperitoneum. No unusual calcifications. Abdominal aortic stent graft with bilateral iliac stents. Additional surg ical clips in the left inguinal region. The lung bases are clear. The osseous structures are intact. IMPRESSION: Nonspecific bowel gas pattern with moderate colonic stool burden.
--- NOTE | 2024-04-05 15:13 | CT ---
EXAM: CT abdomen and pelvis with contrast DATE OF EXAM: 03/02/24 INDICATION: Patient age:RENEE PICHARDO : 1950 Reason for study: Small Bowel Obstruction Suspected, COMPARISON: None, please note PACS downtime occurred during the radiologist interpretation of these i mages with limited priors/reports.. TECHNIQUE: CT abdomen pelvis with axial imaging and sagittal and coronal reformats following the administration of 100 cc of Omnipaque 350 IV contrast material.. One or more CT dose reduction strategies were utili zed during this examination. Total DLP administered was 730.1 mGycm. FINDINGS: LOWER CHEST: Circumferential wall thickening of the distal esophagus with layering debris. ABDOMEN LIVER: Unremarkable GALLBLADDER AND BILE DUCTS: Unremarkable. PANCREAS: Unremarkable. SPLEEN: Unremarkable. ADRENAL GLANDS: Unremarkable. KIDNEYS AND URETERS: No evidence of hydronephrosis or renal calculus. The ureters are unremarkable. R ight renal cortical simple appearing cyst. PELVIS BLADDER: Distended urinary bladder. REPRODUCTIVE: Unremarkable. ABDOMEN & PELVIS STOMACH AND BOWEL: Large stool burden throughout the colon. Large fecaloma in the rectum measuring up to 7.9 cm. Stomach and duodenum are unremarkable. No evidence of bowel obstruction. PERITONEUM: No evidence of pneumoperitoneum or free fluid. VASCULATURE: Atherosclerosis of the arterial vasculature with stent graft present which is patent. Ad ditional bilateral common iliac artery stent grafts are present and patent. MUSCULOSKELETAL: No acute osseous abnormalities LYMPH NODES: No gross evidence for lymphadenopathy. SOFT TISSUE/ABDOMINAL WALL: Unremarkable IMPRESSION: 1. Large amount of stool in the colon and rectum correlate for constipation/fecal impaction. No evid ence for small bowel obstruction. 2. Circumferential thickening of the distal esophagus with layering debris correlate for esophagitis with reflux and/or esophageal dysmotility. 3. Pain abdominal aorta and bilateral common iliac stent grafts. 4. Distended urinary bladder which impresses upon the sigmoid colon possibly contributing to obstruc tion of the colon consider voiding and/or catheters insertion.
== END 2024-03-03 09:59 | disposition left against medical advice (07) | DRG 192 ==
LOC: 4SSUR 16:23
PROVIDERS: ADMIT Internal Medicine; ATTEND Internal Medicine
DX: J44.1 Chronic obstructive pulmonary disease with (acute) exacerbation (principal); Z53.29 Procedure and treatment not carried out because of patient's decision for other reasons; K59.00 Constipation, unspecified; R33.8 Other retention of urine; I10 Essential (primary) hypertension; N28.1 Cyst of kidney, acquired; E78.5 Hyperlipidemia, unspecified; Z86.79 Personal history of other diseases of the circulatory system
CPT/HCPCS: 71046; 74018; 74177; 80048; 80053; 83735; 83880; 84484; 85025; 94640; 96374; 96375; 99285

== ENCOUNTER 2024-04-04 10:37 | Inpatient (IN) | payer OTHER, MEDICARE ==
[2024-04-04 11:32] LABS: Basophils % (A) 1 %; Eosinophils # (A) 0.3 k/uL (0-0.7); Eosinophils % (A) 4 %; HCT 35.5 % (39.0-53.0); HGB 12.1 gm/dL (13.0-17.5); Lymphocytes # (A) 1.3 k/uL (1.0-4.8); Lymphocytes % (A) 18 %; MCH 33.4 pg (25.0-35.0); MCHC 34.1 g/dL (31.0-37.0); Monocytes # (A) 0.3 k/uL (0-1.0); Monocytes % (A) 5 %; Neutrophils # (A) 5.5 k/uL (1.3-7.7); Neutrophils % (A) 72 %; Platelet Count 189 k/uL (150-450); RBC 3.62 m/uL (4.30-5.90); RDW 13.3 % (11.5-15.5); WBC 7.7 k/uL (3.8-10.6)
--- NOTE | 2024-04-04 11:41 | XR ---
EXAMINATION TYPE: XR chest 2V DATE OF EXAM: 04/04/2024 11:38 AM CLINICAL INDICATION: Male, 73 years old with history of syncope; H COMPARISON: Chest radiographs from 03/02/2024 TECHNIQUE: XR chest 2V Frontal view of the chest. FINDINGS: Lungs/Pleura: Prominent interstitial lung markings are seen scattered throughout the lungs and most p ronounced right upper lung. No evidence of focal consolidation, pneumothorax or pleural effusion. Pulmonary vascularity: Unremarkable. Heart/mediastinum: Cardiomediastinal silhouette is unremarkable. Musculoskeletal: No acute osseous pathology. IMPRESSION: Chronic changes without acute pulmonary process. No significant change from prior.
[2024-04-04 11:45] LABS: ALT 16 U/L (4-49); African American GFR (CKD) >90 (>60 ml/min/1.73 sqM); Albumin 3.4 g/dL (3.5-5.0); Anion Gap 7 mmol/L; Blood Urea Nitrogen 24 mg/dL (9-20); Calcium 8.8 mg/dL (8.4-10.2); Carbon Dioxide 23 mmol/L (22-30); Chloride 100 mmol/L (98-107); Glucose 145 mg/dL (74-99); Non-African American GFR(CKD) >90 (>60 ml/min/1.73 sqM); Sodium 130 mmol/L (137-145); Total Bilirubin 0.7 mg/dL (0.2-1.3); Total Protein 5.7 g/dL (6.3-8.2)
[2024-04-04 11:49] LABS: Partial Thromboplastin Time 25.7 sec (22.0-30.0); Prothrombin Time 11.3 sec (10.0-12.5)
[2024-04-04] MEDS: SODIUM CHLORIDE 0.9% 500 ML 500 ML IV STA ×2 (11:49→14:49)
[2024-04-04 11:51] LABS: AST 24 U/L (17-59); Alkaline Phosphatase 43 U/L (38-126); Magnesium 1.5 mg/dL (1.6-2.3); Potassium 5.7 mmol/L (3.5-5.1)
[2024-04-04] MEDS: IPRATROPIUM-ALBUTEROL 3 ML NEB INHALATION STA ×2 (11:51→15:49)
--- NOTE | 2024-04-04 12:11 | ED ---
Syncope HPI - General Source: patient, RN notes reviewed Mode of arrival: wheelchair Limitations: no limitations <Renae Ryan - Last Filed: 04/05/24 07:14> <Tierra Rosario - Last Filed: 04/24/24 22:51> - General Chief Complaint: Syncope Stated Complaint: Diarrhea/Dizziness Time Seen by Provider: 04/04/24 11:04 - History of Present Illness Initial Comments: This is a 73-year-old male who presents to the emergency department for a syncopal episode. States that this morning he started to feel dizzy and lighthe aded, and then had some sweating. He then had diarrhea, shortly after the diarrhea he had a syncopal episode. Does not believe he was out for very long. States that he hit the back of his head which is mildly bothersome. He also has small abrasions to his right arm and left knee. Tetanus vaccine is up-to-date. Not taking any blood thinners. States that he has had syncopal episodes before, but cannot recall when or why. (Renae Ryan) - Related Data Home Medications Medication Instructions Recorded Confirmed Aspirin EC [Ecotrin Low Dose] 81 mg PO DAILY 12/11/19 04/04/24 Albuterol Inhaler [Ventolin Hfa 2 puff INHALATION RT-Q6H PRN 04/04/24 04/04/24 Inhaler] Atorvastatin [Lipitor] 40 mg PO HS 04/04/24 04/04/24 Formoterol Fumarate [Perforomist] 20 mcg INHALATION RT-BID 04/04/24 04/04/24 Ipratropium Nebulized [Atrovent 0.5 mg INHALATION RT-QID PRN 04/04/24 04/04/24 Nebulized 0.2 MG/ML] Ketoconazole 2% Cream [Nizoral 2%] 1 applic TOPICAL DAILY PRN 04/04/24 04/04/24 Mometasone/Formoterol [Dulera 200 2 puff INHALATION RT-BID 04/04/24 04/04/24 Mcg-5 Mcg Inhaler] Omeprazole [PriLOSEC] 20 mg PO DAILY 04/04/24 04/04/24 Tiotropium 2.5 Mcg/Puff [Spiriva 2 puff INHALATION RT-DAILY 04/04/24 04/04/24 Respimat 2.5 Mcg] lisinopriL [Zestril] 10 mg PO DAILY 04/04/24 04/04/24 predniSONE 5 mg PO DAILY 04/04/24 04/04/24 traMADol HCL 100 mg PO Q8H PRN 04/04/24 04/04/24 Allergies Allergy/AdvReac Type Severity Reaction Status Date / Time bee venom protein (honey bee) Allergy Unknown Verified 04/04/24 16:10 tape AdvReac Rash/Hives Uncoded 04/04/24 16:10 Review of Systems ROS Other: All systems not noted in ROS Statement are negative. <Renae Ryan - Last Filed: 04/05/24 07:14> ROS Other: All systems not noted in ROS Statement are negative. <Tierra Rosario - Last Filed: 04/24/24 22:51> ROS Statement: Those systems with pertinent positive or pertinent negative responses have been documented in the HPI. Past Medical History Past Medical History: COPD, GERD/Reflux, Myocardial Infarction ([place]), Pneumonia, Vascular Disorder Additional Past Medical History / Comment(s): Bronchitis, past respiratory failure, PVD, pt states AZ per EKG, beginnings of bilateral cataracts. Mass on lung, agent orange from [place]. Last Myocardial Infarction Date:: 2009 per EKG History of Any Multi-Drug Resistant Organisms: None Reported Past Surgical History: Appendectomy Additional Past Surgical History / Comment(s): Endovascular aortic repair, L iliac stent, colonoscopy Past Anesthesia/Blood Transfusion Reactions: No Reported Reaction Additional Past Anesthesia/Blood Transfusion Reaction / Comment(s): no blood transfusion Past Psychological History: Anxiety, Depression Smoking Status: Current every day smoker Past Alcohol Use History: None Reported Past Drug Use History: None Reported - Past Family History Mother Family Medical History: Liver Disease Additional Family Medical History / Comment(s): liver cirrhosis Brother(s) Family Medical History: Vascular Disorder Father Family Medical History: Myocardial Infarction ([place]) <Renae Ryan - Last Filed: 04/05/24 07:14> General Exam Limitations: no limitations General appearance: alert, in no apparent distress Head exam: Present: atraumatic, normocephalic, normal inspection Eye exam: Present: normal appearance, PERRL, EOMI. Absent: scleral icterus, conjunctival injection, periorbital swelling Respiratory exam: Present: normal lung sounds bilaterally. Absent: respiratory distress, wheezes, rales, rhonchi, stridor Cardiovascular Exam: Present: regular rate, normal rhythm, normal heart sounds. Absent: systolic murmur, diastolic murmur, rubs, gallop, clicks Neurological exam: Present: alert, oriented X3, CN II-XII intact Psychiatric exam: Present: normal affect, normal mood Skin exam: Present: warm, dry, intact, normal color. Absent: rash <Renae Ryan - Last Filed: 04/05/24 07:14> Course <Tierra Rosario - Last Filed: 04/24/24 22:51> Vital Signs 04/04/24 04/04/24 04/04/24 10:40 11:51 11:59 Temperature 97.4 F L Pulse Rate 86 78 80 Pulse Rate [ Brass Wind Instrument Maker ] Respiratory 18 18 18 Rate Blood Pressure 83/60 Blood Pressure [Left Arm Sitting] Blood Pressure [Left Arm Standing] Blood Pressure [Right Arm Supine] O2 Sat by Pulse 80 L Oximetry Fraction of Inspired Oxygen (FIO2) 04/04/24 04/04/24 04/04/24 12:17 14:18 14:37 Temperature 98.0 F Pulse Rate 80 98 Pulse Rate [ 112 H Brass Wind Instrument Maker ] Respiratory 18 18 18 Rate Blood Pressure 129/81 107/71 Blood Pressure 104/60 [Left Arm Sitting] Blood Pressure 60/53 [Left Arm Standing] Blood Pressure 104/60 [Right Arm Supine] O2 Sat by Pulse 99 98 100 Oximetry Fraction of Inspired Oxygen (FIO2) 04/04/24 04/04/24 04/04/24 15:49 15:56 16:30 Temperature Pulse Rate 104 H 107 H Pulse Rate [ Brass Wind Instrument Maker ] Respiratory 22 20 Rate Blood Pressure 70/56 Blood Pressure [Left Arm Sitting] Blood Pressure [Left Arm Standing] Blood Pressure [Right Arm Supine] O2 Sat by Pulse Oximetry Fraction of Inspired Oxygen (FIO2) 04/04/24 04/04/24 04/04/24 16:31 16:34 16:36 Temperature Pulse Rate Pulse Rate [ Brass Wind Instrument Maker ] Respiratory Rate Blood Pressure 71/50 79/58 69/53 Blood Pressure [Left Arm Sitting] Blood Pressure [Left Arm Standing] Blood Pressure [Right Arm Supine] O2 Sat by Pulse Oximetry Fraction of Inspired Oxygen (FIO2) 04/04/24 04/04/24 04/04/24 16:39 16:43 16:50 Temperature Pulse Rate 120 H 114 H Pulse Rate [ Brass Wind Instrument Maker ] Respiratory Rate Blood Pressure 91/64 91/64 73/32 Blood Pressure [Left Arm Sitting] Blood Pressure [Left Arm Standing] Blood Pressure [Right Arm Supine] O2 Sat by Pulse Oximetry Fraction of Inspired Oxygen (FIO2) 04/04/24 04/04/24 04/04/24 16:51 16:56 17:00 Temperature 98.2 F Pulse Rate 114 H 120 H Pulse Rate [ 102 H Brass Wind Instrument Maker ] Respiratory 22 24 Rate Blood Pressure 73/32 99/65 Blood Pressure [Left Arm Sitting] Blood Pressure [Left Arm Standing] Blood Pressure [Right Arm Supine] O2 Sat by Pulse 99 Oximetry Fraction of 50 50 Inspired Oxygen (FIO2) 04/04/24 04/04/24 04/04/24 17:05 17:06 17:10 Temperature 98.0 F Pulse Rate 118 H 105 H Pulse Rate [ Brass Wind Instrument Maker ] Respiratory 18 24 Rate Blood Pressure 106/67 106/67 106/67 Blood Pressure [Left Arm Sitting] Blood Pressure [Left Arm Standing] Blood Pressure [Right Arm Supine] O2 Sat by Pulse 98 Oximetry Fraction of Inspired Oxygen (FIO2) 04/04/24 04/04/24 04/04/24 17:15 17:20 17:21 Temperature 36.4 F L Pulse Rate 111 H 112 H Pulse Rate [ Brass Wind Instrument Maker ] Respiratory 22 20 Rate Blood Pressure 114/67 114/67 122/86 Blood Pressure [Left Arm Sitting] Blood Pressure [Left Arm Standing] Blood Pressure [Right Arm Supine] O2 Sat by Pulse 97 Oximetry Fraction of Inspired Oxygen (FIO2) 04/04/24 04/04/24 17:35 17:40 Temperature Pulse Rate 117 H Pulse Rate [ Brass Wind Instrument Maker ] Respiratory 27 H 22 Rate Blood Pressure 108/98 108/98 Blood Pressure [Left Arm Sitting] Blood Pressure [Left Arm Standing] Blood Pressure [Right Arm Supine] O2 Sat by Pulse 97 Oximetry Fraction of Inspired Oxygen (FIO2) - Reevaluation(s) Reevaluation #1: Spoke with Dr. Pollock - accepted to ICU 04/04/24 16:31 (Tierra Rosario) Medical Decision Making - Lab Data Result diagrams: 04/05/24 04:06 04/05/24 04:06 - Radiology Data Radiology results: report reviewed, image reviewed <Renae Ryan - Last Filed: 04/05/24 07:14> - Lab Data Result diagrams: 04/08/24 06:00 04/08/24 14:30 <Tierra Rosario Gorge - Last Filed: 04/24/24 22:51> - Medical Decision Making This is a 73 year old male who presents to the emergency department for a syncopal episode. Was pt. sent in by a medical professional or institution? @ -No Did you speak to anyone other than the patient for history? @ -No Did you review nursing and triage notes? @ -Yes, and I agree, it is accurate with regards to the patient's symptoms. Were old charts reviewed? @ -No Differential Diagnosis? @ -Differential Syncope: Valvular disease, hypertrophic cardiomyopathy, pulmonary embolism, tamponade, tachycardia, bradycardia, [place], hypovolemia, hemorrhage, dissection, anemia, intracranial hemorrhage, seizure, hypoglycemia, carbon monoxide poisoning, this is not meant to be an all-inclusive list. EKG interpreted by me (3pts min.)? @ -EKG interpreted by me demonstrating the following: Sinus rhythm. Ventricular rate 86 bpm, AZ interval 218 ms, QRS duration 103 ms, QTc 405 ms. X-rays interpreted by me (1pt min.)? @ -Chest x-ray obtained, my interpretation identifies no localized consolidations or infiltrates. CT interpreted by me (1pt min.)? @ -Computed tomography scan of the brain and c-spine obtained. My interpretation identifies no evidence of an acute intracranial hemorrhage, skull fracture, or cervical spine fracture. CT scan of the chest, abdomen, and pelvis obtained. My interpretation identifies extravasation of contrast into the right colon and transverse colon. U/S interpreted by me (1pt. min.)? @ -Not obtained What testing was considered but not performed? (CT, X-rays, U/S, labs)? Why? @ -None What meds were considered but not given? Why? @ -None Did you discuss the management of the patient with other professionals? @ -Yes, Dr. Rojas GI, who advised ICU management. Dr. Lui with [facility] accepts the patient for admission. Case also discussed with Rodrigo ocampo NP with [facility]. Did you reconcile home meds? @ -Yes Was smoking cessation discussed for >3mins.? @ -I discussed smoking cessation for greater than 3 minutes. The risk of smoking were discussed with the patient including but not limited to risks of cancer, stroke, coronary artery disease and COPD. Also discussed with patient were multiple methods of quitting smoking. Lastly we discussed the financial cost of smoking. Was critical care preformed (if so, how long)? @ -Yes, >35 minutes Were there social determinants of health that impacted care today? How? (Homelessness, low income, unemployed, alcoholism, drug addiction, transportation, low edu. Level, literacy, decrease access to med. care, correction, rehab)? @ -No Was there de-escalation of care discussed even if they declined? (Discuss DNR or withdrawal of care, Hospice)? @ -Yes, patient's wishes were discussed and he wishes to remain full code at this time. What co-morbidities impacted this encounter? (DM, HTN, Smoking, COPD, CAD, Cancer, CVA, Hep., AIDS, mental health diagnosis, sleep apnea, morbid obesity)? @ -COPD, smoking Was patient admitted / discharged? @ -Admitted. Lab work was initially relatively unremarkable. He had some signs of dehydration as well as hypomagnesemia of 1.5. 400mg of magnesium oxide was administered. This was hemolyzed. Hyperkalemia of 5.[address] scan of the brain and C-spine obtained due to the injury he sustained. This was negative for any acute process. Chest x-ray was also unremarkable. Urinalysis negative for signs of infection. We had initially planned on discharging the patient, however while in the emergency department he started to feel dizzy again and said that he needed to have a bowel movement. Nursing staff went to help change the patient and he was covered in a very large amount of maroon- colored blood and and clots. Patient states that he also started to feel more dizzy and very unwell. We subsequent proceeded with a CT scan of the abdomen and pelvis. Chest was included as well as the patient was wheezing fairly significantly and feeling increasingly short of breath. CT scan of the abdomen and pelvis obtained demonstrating extravasation of contrast into the right colon and transverse colon consistent with acute hemorrhage/GI bleed. CBC was re peated as well demonstrating a drop in hemoglobin from 12.1 to 9.4. ED attending, Dr. Rosario, spoke with Dr. Pollock, who advised ICU care due to active bleeding. Case discussed with Dr. Rojas, GI as well. She also advised ICU care due to active bleed and dropping hemoglobin. Due to patient's respiratory distress he was started on a BiPAP for comfort as well. Patient did start to decompensate and become hypotensive. He was subsequently transfused with 2 units of PRBCs for symptomatic acute bleed and blood pressure did start to stabilize afterwards before being moved to the ICU. Case discussed with ED attending Dr. Rosario. Undiagnosed new problem with uncertain prognosis? @ -None Drug Therapy requiring intensive monitoring for toxicity (Heparin, Nitro, Insulin, Cardizem)? @ -None Were any procedures done? @ -None Diagnosis/symptom? @ -Syncope, GI bleed Acute, or Chronic, or Acute on Chronic? @ -Acute Uncomplicated (without systemic symptoms) or Complicated (systemic symptoms)? @ -Complicated Side effects of treatment? @ -None Exacerbation, Progression, or Severe Exacerbation] @ -Not applicable Poses a threat to life or bodily function? @ -Yes, can lead to further blood loss, which can be life-threatening (Renae Ryan) - Lab Data Lab Results 04/04/24 04/04/24 04/04/24 Range/Units 11:19 11:19 11:19 WBC 7.7 (3.8-10.6) k/uL RBC 3.62 L (4.30-5.90) m/uL Hgb 12.1 L (13.0-17.5) gm/dL Hct 35.5 L (39.0-53.0) % MCV 98.0 (80.0-100.0) fL MCH 33.4 (25.0-35.0) pg MCHC 34.1 (31.0-37.0) g/dL RDW 13.3 (11.5-15.5) % Plt Count 189 (150-450) k/uL MPV 7.0 Neutrophils % 72 % Lymphocytes % 18 % Monocytes % 5 % Eosinophils % 4 % Basophils % 1 % Neutrophils # 5.5 (1.3-7.7) k/uL Lymphocytes # 1.3 (1.0-4.8) k/uL Monocytes # 0.3 (0-1.0) k/uL Eosinophils # 0.3 (0-0.7) k/uL Basophils # 0.0 (0-0.2) k/uL PT 11.3 (10.0-12.5) sec INR 1.0 (<1.2) APTT 25.7 (22.0-30.0) sec Sodium (137-145) mmol/L Potassium (3.5-5.1) mmol/L Chloride (98-107) mmol/L Carbon Dioxide (22-30) mmol/L Anion Gap mmol/L BUN (9-20) mg/dL Creatinine (0.66-1.25) mg/dL Est GFR (CKD-EPI)AfAm (>60 ml/min/1.73 sqM) Est GFR (CKD-EPI)NonAf (>60 ml/min/1.73 sqM) Glucose (74-99) mg/dL Calcium (8.4-10.2) mg/dL Magnesium (1.6-2.3) mg/dL Total Bilirubin (0.2-1.3) mg/dL AST (17-59) U/L ALT (4-49) U/L Alkaline Phosphatase (38-126) U/L Troponin I (0.000-0.034) ng/mL Total Protein (6.3-8.2) g/dL Albumin (3.5-5.0) g/dL Urine Color Colorless Urine Appearance Clear (Clear) Urine pH 6.5 (5.0-8.0) Ur Specific Morrow 1.012 (1.001-1.035) Urine Protein Negative (Negative) Urine Glucose (UA) Negative (Negative) Urine Ketones Negative (Negative) Urine Blood Negative (Negative) Urine Nitrite Negative (Negative) Urine Bilirubin Negative (Negative) Urine Urobilinogen <2.0 (<2.0) mg/dL Ur Leukocyte Esterase Negative (Negative) 04/04/24 04/04/24 04/04/24 Range/Units 11:19 11:19 15:04 WBC 5.7 (3.8-10.6) k/uL RBC 2.85 L (4.30-5.90) m/uL Hgb 9.4 L D (13.0-17.5) gm/dL Hct 27.7 L (39.0-53.0) % MCV 97.3 (80.0-100.0) fL MCH 33.1 (25.0-35.0) pg MCHC 34.0 (31.0-37.0) g/dL RDW 13.6 (11.5-15.5) % Plt Count 156 (150-450) k/uL MPV 7.6 Neutrophils % 63 % Lymphocytes % 28 % Monocytes % 5 % Eosinophils % 2 % Basophils % 1 % Neutrophils # 3.6 (1.3-7.7) k/uL Lymphocytes # 1.6 (1.0-4.8) k/uL Monocytes # 0.3 (0-1.0) k/uL Eosinophils # 0.1 (0-0.7) k/uL Basophils # 0.0 (0-0.2) k/uL PT (10.0-12.5) sec INR (<1.2) APTT (22.0-30.0) sec Sodium 130 L (137-145) mmol/L Potassium 5.7 H (3.5-5.1) mmol/L Chloride 100 (98-107) mmol/L Carbon Dioxide 23 (22-30) mmol/L Anion Gap 7 mmol/L BUN 24 H (9-20) mg/dL Creatinine 0.69 (0.66-1.25) mg/dL Est GFR (CKD-EPI)AfAm >90 (>60 ml/min/1.73 sqM) Est GFR (CKD-EPI)NonAf >90 (>60 ml/min/1.73 sqM) Glucose 145 H (74-99) mg/dL Calcium 8.8 (8.4-10.2) mg/dL Magnesium 1.5 L (1.6-2.3) mg/dL Total Bilirubin 0.7 (0.2-1.3) mg/dL AST 24 (17-59) U/L ALT 16 (4-49) U/L Alkaline Phosphatase 43 (38-126) U/L Troponin I <0.012 (0.000-0.034) ng/mL Total Protein 5.7 L (6.3-8.2) g/dL Albumin 3.4 L (3.5-5.0) g/dL Urine Color Urine Appearance (Clear) Urine pH (5.0-8.0) Ur Specific Morrow (1.001-1.035) Urine Protein (Negative) Urine Glucose (UA) (Negative) Urine Ketones (Negative) Urine Blood (Negative) Urine Nitrite (Negative) Urine Bilirubin (Negative) Urine Urobilinogen (<2.0) mg/dL Ur Leukocyte Esterase (Negative) Critical Care Time Critical Care Time: Yes <Renae Ryan - Last Filed: 04/05/24 07:14> Critical Care Time: >35 minutes (Renae Ryan) Disposition Time of Disposition: 14:29 <Renae Ryan - Last Filed: 04/05/24 07:14> <Tierra Rosario - Last Filed: 04/24/24 22:51> Clinical Impression: Syncope, GI bleed, Nicotine dependence Disposition: ADMITTED IP TO THIS HOSP Condition: Critical
--- NOTE | 2024-04-04 12:14 | CT ---
EXAMINATION TYPE: CT brain cspine wo con CT DLP: 1366.7 mGycm, Automated exposure control for dose reduction was used. DATE OF EXAM: 04/04/2024 11:52 AM COMPARISON: Pet/CT 12/27/2023.. CLINICAL INDICATION: Male, 73 years old with history of syncope, head injury; Syncope, Head injury TECHNIQUE: Brain: Multiple axial CT images of the brain were obtained without IV contrast. Cspine: Axial CT images from the skull base to the inferior aspect of T2 we obtained without intraven ous contrast. Coronal and sagittal reformatted images were also reviewed. . FINDINGS: Brain: Extra-axial spaces: No abnormal extra-axial fluid collections. Ventricular system: Dilatation in proportion to cerebral atrophy. Cerebral parenchyma: Cerebral atrophy. No acute intraparenchymal hemorrhage or mass effect. The grimm -white junction is well differentiated. Scattered hypoattenuating areas are seen within the white mat ter. Cerebellum: Unremarkable. Mass effect: No evidence of midline shift. Intracranial vasculature: Atherosclerotic calcifications of the intracranial vessels. Soft tissues: Normal. Calvarium/osseous structures: No depressed skull fracture. Paranasal sinuses and mastoid air cells: Clear. Visualized orbits: Bilateral aphakia Cervical spine: Fracture: None. Osseous structures: Multilevel degenerative disc disease changes with endplate spurring and disc oste ophyte complex's. Vertebral alignment: Within normal limits. Spinal canal/Neural Foramina: No evidence of significant spinal canal narrowing. No evidence for sign ificant neural foraminal stenosis. Neck soft tissues: Prevertebral soft tissues are within normal limits. Other: The airway is patent. Scarring/atelectasis in the right upper lung superimposed on COPD/emphys william.. Atherosclerosis of the carotid bifurcations. IMPRESSION: 1. No acute intracranial process. 2. Nonspecific white matter changes, likely secondary to chronic small vessel ischemic disease. 3. No evidence of cervical spine fracture. 4. Mild multilevel degenerative disc disease. 5. Right upper lung scarring/atelectasis with superimposed emphysema. Similar to prior PET 12/27/2023.
[2024-04-04] MEDS: MAGNESIUM OXIDE 400 MG TAB PO STA (12:16)
[2024-04-04 13:40] LABS: Appearance,Urine Clear (Clear); Bilirubin,Urine Negative (Negative); Blood,Urine Negative (Negative); Color,Urine Colorless; Glucose,Urine (UA) Negative (Negative); Ketones,Urine Negative (Negative); Leukocyte Esterase,Urine Negative (Negative); Nitrite,Urine Negative (Negative); PH, Urine 6.5 (5.0-8.0); Protein,Urine Negative (Negative); Specific Gravity,Urine 1.012 (1.001-1.035); Urobilinogen,Urine <2.0 mg/dL (<2.0)
[2024-04-04] MEDS: DIPHENOX-ATROP 2.5-0.025 MG 1 EACH TAB PO STA (14:49)
[2024-04-04] MEDS: ONDANSETRON 4 MG/2 ML VIAL IVP STA (14:49)
[2024-04-04 15:43] LABS: Basophils % (A) 1 %; Eosinophils # (A) 0.1 k/uL (0-0.7); Eosinophils % (A) 2 %; HCT 27.7 % (39.0-53.0); Lymphocytes # (A) 1.6 k/uL (1.0-4.8); Lymphocytes % (A) 28 %; MCH 33.1 pg (25.0-35.0); MCV 97.3 fL (80.0-100.0); Mean Platelet Volume 7.6; Monocytes # (A) 0.3 k/uL (0-1.0); Monocytes % (A) 5 %; Neutrophils # (A) 3.6 k/uL (1.3-7.7); Neutrophils % (A) 63 %; Platelet Count 156 k/uL (150-450); RBC 2.85 m/uL (4.30-5.90); RDW 13.6 % (11.5-15.5); WBC 5.7 k/uL (3.8-10.6)
[2024-04-04 15:45] LABS: HGB 9.4 gm/dL (13.0-17.5)
--- NOTE | 2024-04-04 16:00 | CT ---
EXAMINATION TYPE: CT ChestAbdPelvis w con DATE OF EXAM: 04/04/2024 COMPARISON: CT chest dated 12/09/2023 HISTORY: Wheeze and rectal bleeding CT DLP: 719.9 mGycm Automated exposure control for dose reduction was used. CONTRAST: CT scan of the chest, abdomen and pelvis is performed without Oral Contrast and with IV Contrast, pat ient injected with 100 cc mL of Isovue 300. FINDINGS: CT chest: 4.3 x 3 cm spiculated mass in right upper lobe has essentially resolved. In the same location there i s now severe pleural parenchymal scarring. There is no new or suspicious lung mass or nodule. There is no airspace consolidation. There is persistent 4.2-4.3 cm aneurysmal dilatation of the ascending thoracic aorta. There is no ple ural effusion, pleural thickening or pneumothorax. There is no mediastinal, hilar or axillary adenopathy. No focal osseous lesions are seen. CT abdomen and pelvis: Gallbladder is normal without distention, pericholecystic fluid, wall thickening or gallstone. There is no biliary ductal dilatation. There is no focal mass or organomegaly involving the liver, pancreas, spleen or adrenal glands.. There is no solid renal mass or hydronephrosis. There is a aortobiiliac stent grafts. The kwethluk aneurysm is 6.6 x 5.8 cm. There is no evidence of en doleak or retroperitoneal hemorrhage. There is active extravasation of contrast within the region of the right colon extending into the tra nsverse colon consistent with acute hemorrhage. There is no free intracranial air or fluid. There is no pelvic mass or adenopathy. There is no free fluid within the pelvis. No focal osseous lesions are seen. Soft tissue the abdomen and pelvis are normal. IMPRESSION: 1. Resolution of the large spiculated mass seen on the prior CT chest dated 03/05/2022. Is been replac ed by severe pleural-parenchymal scarring but no suspicious mass. 2. Stable 4.2-4.3 cm aneurysmal dilatation ascending thoracic aorta. 3. Extravasation of contrast into the right colon and transverse colon consistent with acute hemorrha ge/GI bleed. 4. Aortic stent graft with large kwethluk aneurysm as described above. No evidence of endoleak.
[2024-04-04] MEDS: PANTOPRAZOLE 40 MG/10 ML VIAL IVP STA (16:04)
[2024-04-04] MEDS ORDERED: NALOXONE 0.4 MG/ML 1 ML VIAL IV PRN (16:45)
--- NOTE | 2024-04-04 16:55 | P.CNPUL ---
History of Present Illness Consult date: 04/04/24 Requesting physician: Renae Ryan Reason for consult: COPD, other (GI bleeding and anemia) Chief complaint: Passing out episode History of present illness: This is a 73-year-old white male familiar to my service, known history of severe COPD, patient was seen in the ER today, he was brought in with feeling lightheaded and dizzy and diaphoresis. Apparently since earlier today the patient has been experiencing diarrhea and he may have had according to him a syncopal episode. Does not believe that he was out for very long, patient fell, sustained a small abrasion on the right arm and left knee, patient has also been complaining of bright red blood per rectum baseline hemoglobin was 12.1 at 11:15 AM, follow-up hemoglobin at 3 PM was down to 9.4 in addition to her GI symptoms, patient is complaining of coughing wheezing and shortness of breath. GI has been consulted, I saw the patient done in the ER, and I recommended admitting the patient to the ICU. In the meantime the patient may need to have further evaluation for his GI bleeding, he will need to be placed on bronchodilators for his COPD, and will need to be closely monitored, hence I am recommending ICU admission. Patient is known to have history of severe COPD, chronic tobacco dependence, history of abdominal aortic aneurysm and had previous aortoiliac stents, he is also known to have history of hypertension, alcoholism, and his primary care physician is at the [facility]. Baseline FEV1 is in the range of 52%, patient is known to have history of chronic right apical scarring, underlying malignancy is not entirely ruled out, patient is being followed closely on outpatient basis for his abnormal CT of the chest. Chest x-ray on this admission showed mostly right apical scarring, chronic, and evidence of COPD, otherwise no evidence of acute process. CT of the head and cervical spine, showed no acute intracranial process. Review of Systems REVIEW OF SYSTEMS: CONSTITUTIONAL: Feels generally weak and tired, no fever and chills. Feels extremely lightheaded. EYES: Denies change in vision. EARS, NOSE, MOUTH, THROAT: Denies headaches, denies sore throat. CARDIOVASCULAR: Denies chest pain, palpitations or syncopal episodes. RESPIRATORY: Cough wheezing shortness of breath GASTROINTESTINAL: Bloody stools/bright red blood per rectum with diarrhea GENITOURINARY: Denies hematuria, denies infections. MUSKULOSKELETAL: Denies pain, denies swelling. INTEGUMENTARY: Denies rash, denies eczema. NEUROLOGICAL: Lightheadedness and possibly a syncopal episode PSYCHIATRIC: Denies anxiety, denies depression. HEMATOLOGIC/LYMPHATIC: Denies anemia, denies enlarged lymph node Past Medical History Past Medical History: COPD, GERD/Reflux, Myocardial Infarction ([place]), Pneumonia, Vascular Disorder Additional Past Medical History / Comment(s): Bronchitis, past respiratory failure, PVD, pt states [place] per EKG, beginnings of bilateral cataracts. Mass on lung, agent [place] from [place]. Last Myocardial Infarction Date:: 2009 per EKG History of Any Multi-Drug Resistant Organisms: None Reported Past Surgical History: Appendectomy Additional Past Surgical History / Comment(s): Endovascular aortic repair, L iliac stent, colonoscopy Past Anesthesia/Blood Transfusion Reactions: No Reported Reaction Additional Past Anesthesia/Blood Transfusion Reaction / Comment(s): no blood transfusion Past Psychological History: Anxiety, Depression Smoking Status: Current every day smoker Past Alcohol Use History: None Reported Past Drug Use History: None Reported - Past Family History Mother Family Medical History: Liver Disease Additional Family Medical History / Comment(s): liver cirrhosis Brother(s) Family Medical History: Vascular Disorder Father Family Medical History: Myocardial Infarction ([place]) Medications and Allergies Home Medications Medication Instructions Recorded Confirmed Type Aspirin EC [Ecotrin Low Dose] 81 mg PO DAILY 12/11/19 04/04/24 History Albuterol Inhaler [Ventolin Hfa 2 puff INHALATION RT-Q6H PRN 04/04/24 04/04/24 History Inhaler] Atorvastatin [Lipitor] 40 mg PO HS 04/04/24 04/04/24 History Formoterol Fumarate [Perforomist] 20 mcg INHALATION RT-BID 04/04/24 04/04/24 History Ipratropium Nebulized [Atrovent 0.5 mg INHALATION RT-QID PRN 04/04/24 04/04/24 History Nebulized 0.2 MG/ML] Ketoconazole 2% Cream [Nizoral 2%] 1 applic TOPICAL DAILY PRN 04/04/24 04/04/24 History Mometasone/Formoterol [Dulera 200 2 puff INHALATION RT-BID 04/04/24 04/04/24 History Mcg-5 Mcg Inhaler] Omeprazole [PriLOSEC] 20 mg PO DAILY 04/04/24 04/04/24 History Tiotropium 2.5 Mcg/Puff [Spiriva 2 puff INHALATION RT-DAILY 04/04/24 04/04/24 History Respimat 2.5 Mcg] lisinopriL [Zestril] 10 mg PO DAILY 04/04/24 04/04/24 History predniSONE 5 mg PO DAILY 04/04/24 04/04/24 History traMADol HCL 100 mg PO Q8H PRN 04/04/24 04/04/24 History Allergies Allergy/AdvReac Type Severity Reaction Status Date / Time bee venom protein (honey bee) Allergy Unknown Verified 04/04/24 16:10 tape AdvReac Rash/Hives Uncoded 04/04/24 16:10 Physical Exam Vitals: Vital Signs Temp Pulse Pulse Resp BP BP BP 04/04/24 15:56 107 H 20 04/04/24 15:49 104 H 22 04/04/24 14:37 98.0 F 112 H 18 104/60 60/53 04/04/24 14:18 98 18 107/71 04/04/24 12:17 80 18 129/81 04/04/24 11:59 80 18 04/04/24 11:51 78 18 04/04/24 10:40 97.4 F L 86 18 83/60 BP Pulse Ox 04/04/24 15:56 04/04/24 15:49 04/04/24 14:37 104/60 100 04/04/24 14:18 98 04/04/24 12:17 99 04/04/24 11:59 04/04/24 11:51 04/04/24 10:40 80 L Intake and Output 04/04/24 04/04/24 04/04/24 06:59 14:59 22:59 Other: Weight 63.503 kg GENERAL EXAM: Reveals 73-year-old white male frail looking, chronically ill, in mild respiratory distress. HEAD: Normocephalic and atraumatic EYES: Normal reaction of pupils, equal size. Pale conjunctivae, nonicteric NOSE: Clear with pink turbinates. THROAT: No erythema or exudates. NECK: No masses, no JVD. CHEST: No chest wall deformity. LUNGS: Diffuse rhonchi and wheezes noted bilaterally. CVS: S1 and S2 normal with no audible murmur, regular rhythm. No extra heart sounds ABDOMEN: No hepatosplenomegaly, active bowel sounds, no guarding or rigidity. Umbilical hernia, reducible SKIN: No rashes CENTRAL NERVOUS SYSTEM: No focal deficits, tone is normal in all 4 extremities. EXTREMITIES: There is no peripheral edema, clubbing, or cyanosis. Peripheral pulses are intact. Results - Laboratory Findings CBC and BMP: 04/04/24 15:04 04/04/24 11:19 PT/INR, D-dimer PT 11.3 sec (10.0-12.5) 04/04/24 11:19 INR 1.0 (<1.2) 04/04/24 11:19 Abnormal lab findings: Abnormal Labs 04/04/24 04/04/24 04/04/24 11:19 11:19 15:04 RBC 3.62 L 2.85 L Hgb 12.1 L 9.4 L D Hct 35.5 L 27.7 L Sodium 130 L Potassium 5.7 H BUN 24 H Glucose 145 H Magnesium 1.5 L Total Protein 5.7 L Albumin 3.4 L - Diagnostic Findings Chest x-ray: image reviewed (As noted in HPI) Assessment and Plan Assessment: Impression: Acute GI bleeding exact source is not clear could be upper GI or could be lower GI in nature Acute exacerbation of COPD Acute blood loss anemia Chronic right apical scarring History of alcoholism but no previous history of esophageal varices History of abdominal aortic aneurysm status post aortoiliac stent Benign essential hypertension Ongoing tobacco dependence Chronic right upper lobe scarring, underlying malignancy is not entirely ruled out but felt to be less likely Recommendation: Admit patient to ICU Continue to monitor hemoglobin hematocrit and transfuse for hemoglobin below 7 Patient needs to have type and hold at least 3 to 4 units of blood Patient needs to be placed on bronchodilators including DuoNeb, Symbicort, and Solu-Medrol. Stat GI consultation on this patient patient may need EGD and/or colonoscopy Treat patient with Protonix empirically. Patient is critically ill Hence I am recommending transfer to ICU from the ER. Critical care time is over 30 minutes Time with Patient: Greater than 30
[2024-04-04] MEDS ORDERED: LORazepam 2 MG/ML INJ IV PRN (16:59)
[2024-04-04] MEDS ORDERED: traMADol 50 MG TAB PO PRN (17:00)
[2024-04-04] MEDS ORDERED: NON FORMULARY DRUG (Albuterol Inhaler 90 MCG Puff) INHALATION PRN (17:00)
[2024-04-04] MEDS ORDERED: IPRATROPIUM 0.5 MG/2.5 ML NEBU INHALATION PRN (17:00)
[2024-04-04] MEDS: ACETAMINOPHEN IV (For NPO) 1,000 MG in SALINE 1 100ML.BAG IVPB ONE (17:00)
[2024-04-04] MEDS ORDERED: CLOTRIMAZOLE 1% CREAM 30 GM TUBE TOPICAL PRN (17:00)
[2024-04-04] MEDS ORDERED: methylPREDNISolone SOD SUCCI 40 MG/ML 1 ML VIAL IV SCH (17:00)
[2024-04-04] MEDS ORDERED: ACETAMINOPHEN IV (For NPO) 1,000 MG in EMPTY BAG 1 BAG IVPB PRN (17:14)
--- NOTE | 2024-04-04 17:37 | P.HPIM ---
History of Present Illness H&P Date: 04/04/24 Patient is currently on BiPAP and appears to be in moderate distress, majority of history is obtained from charting and ER provider. 73 year old M with PMH of COPD, CAD, PVD, L iliac stent presented to the ED after a syncopal episode at home after an episode of diarrhea. In the ED he underwent extensive evaluation. BP 83/60, HR 86, T 97.4F, RR 18, 80% on RA?. CBC, Coag panel, CMP significant for RBC 3.62, Hg 12.1, Hct 35.5, Na 130, K 5.7, BUN 24, glu 145, alb 3.4. Mag 1.5. Troponin < 0.012. UA negative. CXR chronic changes. CT head and C-spine no acute process. EKG sinus rhythm with first de gree AV block. Initially plans for discharge home however patient had a large maroon colored bowel movement and a Hg drop to 9.4 while in the ED. 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 ER provider discussed the case with GI and arrangements were made for admission to ICU for C-scope tomorrow. General: Toxic, moderate distress, appears at stated age Derm: Warm, dry Head: Atraumatic, normocephalic, symmetric Eyes: EOMI, no lid lag, anicteric sclera Mouth: No lip lesion, mucus membranes moist Cardiovascular: S1 S2 tachy. No murmurs, rubs, gallops Lungs: Diffuse expiratory wheezing bilaterally, no accessory muscle use, BiPAP Abdominal: Soft, non distended, non TTP, umbillical hernia Ext: No gross muscle atrophy, no edema, no contractures Psych: Alert, oriented, appropriate affect Based on my assessment of this patient, this patient meets a high complexity level of care. Lower GI bleed: As seen on CT AP. Protonix 40 mg IV BID. 2 unit PRBC ordered. CBC Q4H. NPO. Transfuse if Hg < 7. Telemetry monitoring. Admit to ICU. GI consulted, plans for C-scope tomorrow. Acute hypoxic respiratory failure COPD exacerbation: DuoNeb QID scheduled and PRN for SOB/wheezing. Solumedrol 40 mg IV TID. Symbicort 2 INH BID. Performist 20 mcg INH BID. Pulmonary on board. Hyperkalemia: Hemolyzed specimen. Hypomagnesemia: Replaced. Repeat tomorrow. CAD, PVD, L iliac stent: Hold ASA Prognosis is guarded. CODE STATUS: FULL CODE DVT Prophylaxis: SCD GI Prophylaxis: Protonix IV Designated medical POA if patient is not able to make medical decisions for themselves: I have reviewed the following business information consultant notes: ED note I have reviewed the results of the following tests: As above. I have ordered the following tests: As above. I have discussed the care of this patient with the following independent historian: ISABEL. I have independently interpreted the following test below: CXR I have discussed the management of this patient with the following physician: Renae ROSALES Past Medical History Past Medical History: COPD, GERD/Reflux, Myocardial Infarction ([place]), Pneumonia, Vascular Disorder Additional Past Medical History / Comment(s): Bronchitis, past respiratory failure, PVD, pt states [place] per EKG, beginnings of bilateral cataracts. Mass on lung, agent [place] from [place]. Last Myocardial Infarction Date:: 2009 per EKG History of Any Multi-Drug Resistant Organisms: None Reported Past Surgical History: Appendectomy Additional Past Surgical History / Comment(s): Endovascular aortic repair, L lorenzo ac stent, colonoscopy Past Anesthesia/Blood Transfusion Reactions: No Reported Reaction Additional Past Anesthesia/Blood Transfusion Reaction / Comment(s): no blood transfusion Past Psychological History: Anxiety, Depression Smoking Status: Current every day smoker Past Alcohol Use History: None Reported Past Drug Use History: None Reported - Past Family History Mother Family Medical History: Liver Disease Additional Family Medical History / Comment(s): liver cirrhosis Brother(s) Family Medical History: Vascular Disorder Father Family Medical History: Myocardial Infarction ([place]) Medications and Allergies Home Medications Medication Instructions Recorded Confirmed Type Aspirin EC [Ecotrin Low Dose] 81 mg PO DAILY 12/11/19 04/04/24 History Albuterol Inhaler [Ventolin Hfa 2 puff INHALATION RT-Q6H PRN 04/04/24 04/04/24 History Inhaler] Atorvastatin [Lipitor] 40 mg PO HS 04/04/24 04/04/24 History Formoterol Fumarate [Perforomist] 20 mcg INHALATION RT-BID 04/04/24 04/04/24 History Ipratropium Nebulized [Atrovent 0.5 mg INHALATION RT-QID PRN 04/04/24 04/04/24 History Nebulized 0.2 MG/ML] Ketoconazole 2% Cream [Nizoral 2%] 1 applic TOPICAL DAILY PRN 04/04/24 04/04/24 History Mometasone/Formoterol [Dulera 200 2 puff INHALATION RT-BID 04/04/24 04/04/24 History Mcg-5 Mcg Inhaler] Omeprazole [PriLOSEC] 20 mg PO DAILY 04/04/24 04/04/24 History Tiotropium 2.5 Mcg/Puff [Spiriva 2 puff INHALATION RT-DAILY 04/04/24 04/04/24 History Respimat 2.5 Mcg] lisinopriL [Zestril] 10 mg PO DAILY 04/04/24 04/04/24 History predniSONE 5 mg PO DAILY 04/04/24 04/04/24 History traMADol HCL 100 mg PO Q8H PRN 04/04/24 04/04/24 History Allergies Allergy/AdvReac Type Severity Reaction Status Date / Time bee venom protein (honey bee) Allergy Unknown Verified 04/04/24 16:10 tape AdvReac Rash/Hives Uncoded 04/04/24 16:10 Physical Exam Vitals: Vital Signs Temp Pulse Pulse Resp BP BP BP 04/04/24 17:15 114/67 04/04/24 17:10 123/77 04/04/24 17:06 98.0 F 118 H 18 106/67 04/04/24 17:05 106/67 04/04/24 17:00 120 H 99/65 04/04/24 16:56 98.2 F 114 H 22 73/32 04/04/24 16:51 04/04/24 16:50 114 H 73/32 04/04/24 16:43 120 H 91/64 04/04/24 16:39 91/64 04/04/24 16:36 69/53 04/04/24 16:34 79/58 04/04/24 16:31 71/50 04/04/24 16:30 70/56 04/04/24 15:56 107 H 20 04/04/24 15:49 104 H 22 04/04/24 14:37 98.0 F 112 H 18 104/60 60/53 04/04/24 14:18 98 18 107/71 04/04/24 12:17 80 18 129/81 04/04/24 11:59 80 18 04/04/24 11:51 78 18 04/04/24 10:40 97.4 F L 86 18 83/60 BP Pulse Ox FiO2 04/04/24 17:15 04/04/24 17:10 04/04/24 17:06 98 04/04/24 17:05 04/04/24 17:00 04/04/24 16:56 99 04/04/24 16:51 50 04/04/24 16:50 04/04/24 16:43 04/04/24 16:39 04/04/24 16:36 04/04/24 16:34 04/04/24 16:31 04/04/24 16:30 04/04/24 15:56 04/04/24 15:49 04/04/24 14:37 104/60 100 04/04/24 14:18 98 04/04/24 12:17 99 04/04/24 11:59 04/04/24 11:51 04/04/24 10:40 80 L Intake and Output 04/04/24 04/04/24 04/04/24 06:59 14:59 22:59 Intake Total 310 Balance 310 Intake: Blood Product 310 Rc As-1 Unit 310 [id number] Other: Weight 63.503 kg Results CBC & Chem 7: 04/04/24 15:04 04/04/24 11:19 Labs: Abnormal Lab Results - Last 24 Hours (Table) 04/04/24 04/04/24 04/04/24 Range/Units 11:19 11:19 15:04 RBC 3.62 L 2.85 L (4.30-5.90) m/uL Hgb 12.1 L 9.4 L D (13.0-17.5) gm/dL Hct 35.5 L 27.7 L (39.0-53.0) % Sodium 130 L (137-145) mmol/L Potassium 5.7 H (3.5-5.1) mmol/L BUN 24 H (9-20) mg/dL Glucose 145 H (74-99) mg/dL Magnesium 1.5 L (1.6-2.3) mg/dL Total Protein 5.7 L (6.3-8.2) g/dL Albumin 3.4 L (3.5-5.0) g/dL
[2024-04-04] MEDS: SYMBICORT 160-4.5 MCG INHALER INHALATION STA (17:40)
[2024-04-04 17:48] LABS: Glucose,Whole Blood 91 mg/dL (70-110)
[2024-04-04 18:31] LABS: ABG Base Excess -8.5 mmol/L; ABG HCO3 16 mmol/L (21-25); ABG Oxygen Saturation 99.9 % (94-97); ABG PCO2 29 mmHg (35-45); ABG PH 7.36 (7.35-7.45); ABG PO2 245 mmHg (83-108); ABG TCO2 17 mmol/L (19-24); Allen Test Performed? Yes
[2024-04-04] MEDS: DEXTROSE 50% SYRINGE 50 ML IVP STA (18:55)
[2024-04-04] MEDS: SODIUM BICARB 8.4% 50 ML SYR (1 MEQ/ML) IV STA (18:55)
[2024-04-04] MEDS: INSULIN REGULAR 100 UNIT/ML VIAL (IV) IV ONE (18:55)
[2024-04-04] MEDS ORDERED: FORMOTEROL FUMARATE 20 MCG/2 ML NEBU INHALATION SCH (20:00)
[2024-04-04] MEDS: SODIUM BICARB 8.4% 50 ML SYR (1 MEQ/ML) IV ONE (20:02)
[2024-04-04 20:32] LABS: HCT 29.7 % (39.0-53.0); HGB 9.7 gm/dL (13.0-17.5); MCH 31.4 pg (25.0-35.0); MCHC 32.7 g/dL (31.0-37.0); MCV 96.2 fL (80.0-100.0); Platelet Count 100 k/uL (150-450); RBC 3.09 m/uL (4.30-5.90); WBC 8.5 k/uL (3.8-10.6)
[2024-04-04] MEDS: SYMBICORT 160-4.5 MCG INHALER INHALATION SCH (20:51)
--- NOTE | 2024-04-04 20:51 | P.CONS ---
History of Present Illness - Reason for Consult Consult date: 04/04/24 Requesting physician: Narinder eWir - History of Present Illness Patient is a 73-year-old pleasant white male came to the emergency room this afternoon after having 2 episodes of bloody bowel movements at home. He complained of some vague lower abdominal discomfort but no nausea vomiting. Came to the emergency room this afternoon and initially was noted to have a hemoglobin of 12.1 g/dL. However he was noted to be somewhat hypotensive and was resuscitated with fluids. While in the ER he had several large maroon- colored stools with large clots and continues remain hypertensive. He received 2 units of PRBC transfusion prior to which his hemoglobin dropped to 9.5 g/dL. He was transferred to the intensive care unit. Since being in the ICU he had another 2 episodes of large bloody bowel movements with dark clots. He denies any abdominal pain at this time. No nausea vomiting. He received 2 units of PRBC transfusion and repeat CBC is pending at this time. He denies being on any any anticoagulation. In the ER he did have CT abdomen and pelvis/angiogram performed which revealed active extravasation of the contrast into the right colon and transverse colon suggestive of active GI bleed. His last colonoscopy done in November of this year revealed 1 cm cecal polyp and a 5 mm transverse colon polyp that was removed. Review of Systems REVIEW OF SYSTEMS: CARDIOPULMONARY: No chest pain or with patient is complaining of severe shortness of breath and was started on BiPAP GENITOURINARY: No dysuria or hematuria. MUSCULOSKELETAL: Unremarkable. SKIN: Unremarkable. ENDOCRINE: Unremarkable. PSYCHIATRIC: Unremarkable. NEUROLOGY: Slightly confused ENT: Vision unremarkable. CONSTITUTIONAL: No recent weight loss. No fever, chills, night sweats. Past Medical History Past Medical History: COPD, GERD/Reflux, Myocardial Infarction (MD), Pneumonia, Vascular Disorder Additional Past Medical History / Comment(s): Bronchitis, past respiratory failure, PVD, pt states MD per EKG, beginnings of bilateral cataracts. Mass on lung, agent orange from [place]. Last Myocardial Infarction Date:: 2009 per EKG History of Any Multi-Drug Resistant Organisms: None Reported Past Surgical History: Appendectomy Additional Past Surgical History / Comment(s): Endovascular aortic repair, L iliac stent, colonoscopy Past Anesthesia/Blood Transfusion Reactions: No Reported Reaction Additional Past Anesthesia/Blood Transfusion Reaction / Comm: no blood trans fusion Past Psychological History: Anxiety, Depression Smoking Status: Current every day smoker Past Alcohol Use History: None Reported Past Drug Use History: None Reported - Past Family History Mother Family Medical History: Liver Disease Additional Family Medical History / Comment(s): liver cirrhosis Brother(s) Family Medical History: Vascular Disorder Father Family Medical History: Myocardial Infarction (MD) Medications and Allergies Home Medications Medication Instructions Recorded Confirmed Type Aspirin EC [Ecotrin Low Dose] 81 mg PO DAILY 12/11/19 04/04/24 History Albuterol Inhaler [Ventolin Hfa 2 puff INHALATION RT-Q6H PRN 04/04/24 04/04/24 History Inhaler] Atorvastatin [Lipitor] 40 mg PO HS 04/04/24 04/04/24 History Formoterol Fumarate [Perforomist] 20 mcg INHALATION RT-BID 04/04/24 04/04/24 History Ipratropium Nebulized [Atrovent 0.5 mg INHALATION RT-QID PRN 04/04/24 04/04/24 History Nebulized 0.2 MG/ML] Ketoconazole 2% Cream [Nizoral 2%] 1 applic TOPICAL DAILY PRN 04/04/24 04/04/24 History Mometasone/Formoterol [Dulera 200 2 puff INHALATION RT-BID 04/04/24 04/04/24 History Mcg-5 Mcg Inhaler] Omeprazole [PriLOSEC] 20 mg PO DAILY 04/04/24 04/04/24 History Tiotropium 2.5 Mcg/Puff [Spiriva 2 puff INHALATION RT-DAILY 04/04/24 04/04/24 History Respimat 2.5 Mcg] lisinopriL [Zestril] 10 mg PO DAILY 04/04/24 04/04/24 History predniSONE 5 mg PO DAILY 04/04/24 04/04/24 History traMADol HCL 100 mg PO Q8H PRN 04/04/24 04/04/24 History Allergies Allergy/AdvReac Type Severity Reaction Status Date / Time bee venom protein (honey bee) Allergy Unknown Verified 04/04/24 16:10 tape AdvReac Rash/Hives Uncoded 04/04/24 16:10 Physical Exam Vitals: Vital Signs Temp Pulse Pulse Resp BP BP BP 04/04/24 20:28 04/04/24 19:30 96.5 F L 110 H 22 67/46 04/04/24 19:20 114 H 24 144/103 04/04/24 19:10 108 H 26 H 122/86 04/04/24 19:00 106 H 21 101/55 04/04/24 18:50 106 H 20 101/55 04/04/24 18:40 101 H 21 104/92 04/04/24 18:30 108 H 20 106/83 04/04/24 18:20 108 H 20 106/83 04/04/24 18:10 108 H 23 106/45 04/04/24 18:00 36.2 F L 112 H 24 143/56 04/04/24 17:50 110 H 14 143/56 04/04/24 17:40 117 H 22 108/98 04/04/24 17:35 27 H 108/98 04/04/24 17:21 36.4 F L 112 H 20 122/86 04/04/24 17:20 111 H 22 114/67 04/04/24 17:15 114/67 04/04/24 17:10 105 H 24 106/67 04/04/24 17:06 98.0 F 118 H 18 106/67 04/04/24 17:05 106/67 04/04/24 17:00 120 H 102 H 24 99/65 04/04/24 16:56 98.2 F 114 H 22 73/32 04/04/24 16:51 04/04/24 16:50 114 H 73/32 04/04/24 16:43 120 H 91/64 04/04/24 16:39 91/64 04/04/24 16:36 69/53 04/04/24 16:34 79/58 04/04/24 16:31 71/50 04/04/24 16:30 70/56 04/04/24 15:56 107 H 20 04/04/24 15:49 104 H 22 04/04/24 14:37 98.0 F 112 H 18 104/60 60/53 04/04/24 14:18 98 18 107/71 04/04/24 12:17 80 18 129/81 04/04/24 11:59 80 18 04/04/24 11:51 78 18 04/04/24 10:40 97.4 F L 86 18 83/60 BP Pulse Ox FiO2 04/04/24 20:28 50 04/04/24 19:30 04/04/24 19:20 04/04/24 19:10 04/04/24 19:00 04/04/24 18:50 04/04/24 18:40 04/04/24 18:30 04/04/24 18:20 04/04/24 18:10 04/04/24 18:00 04/04/24 17:50 04/04/24 17:40 97 04/04/24 17:35 04/04/24 17:21 97 04/04/24 17:20 04/04/24 17:15 04/04/24 17:10 04/04/24 17:06 98 04/04/24 17:05 04/04/24 17:00 50 04/04/24 16:56 99 04/04/24 16:51 50 04/04/24 16:50 04/04/24 16:43 04/04/24 16:39 04/04/24 16:36 04/04/24 16:34 04/04/24 16:31 04/04/24 16:30 04/04/24 15:56 04/04/24 15:49 04/04/24 14:37 104/60 100 04/04/24 14:18 98 04/04/24 12:17 99 04/04/24 11:59 04/04/24 11:51 04/04/24 10:40 80 L Intake and Output 04/04/24 04/04/24 04/04/24 06:59 14:59 22:59 Intake Total 620 Output Total 300 Balance 320 Intake: Blood Product 620 Rc As-1 Unit 310 [id number] Rc As-1 Unit 310 [id number] Rc As-1 Unit 0 [id number] Output: Urine 300 Other: # Voids 1 # Bowel Movements 1 Weight 63.503 kg 63.503 kg HEENT examination unremarkable patient presently on BiPAP Neuro he is alert and oriented x 3 no focal deficits Conjunctiva pale, sclera anicteric Oral cavity no lesions or lymph node enlargement Chest decreased breath sounds bilaterally Heart regular rate and rhythm Abdomen was soft he was nontender nondistended pulses are positive Extremities no pedal edema Results CBC & Chem 7: 04/04/24 20:10 04/04/24 11:19 Labs: Abnormal Lab Results - Last 24 Hours (Table) 04/04/24 04/04/24 04/04/24 Range/Units 11:19 11:19 15:04 RBC 3.62 L 2.85 L (4.30-5.90) m/uL Hgb 12.1 L 9.4 L D (13.0-17.5) gm/dL Hct 35.5 L 27.7 L (39.0-53.0) % Plt Count (150-450) k/uL ABG pCO2 (35-45) mmHg ABG pO2 (83-108) mmHg ABG HCO3 (21-25) mmol/L ABG Total CO2 (19-24) mmol/L ABG O2 Saturation (94-97) % Sodium 130 L (137-145) mmol/L Potassium 5.7 H (3.5-5.1) mmol/L BUN 24 H (9-20) mg/dL Glucose 145 H (74-99) mg/dL Magnesium 1.5 L (1.6-2.3) mg/dL Total Protein 5.7 L (6.3-8.2) g/dL Albumin 3.4 L (3.5-5.0) g/dL Crossmatch 04/04/24 04/04/24 04/04/24 Range/Units 16:35 18:30 20:10 RBC 3.09 L (4.30-5.90) m/uL Hgb 9.7 L (13.0-17.5) gm/dL Hct 29.7 L (39.0-53.0) % Plt Count 100 L (150-450) k/uL ABG pCO2 29 L (35-45) mmHg ABG pO2 245 H (83-108) mmHg ABG HCO3 16 L (21-25) mmol/L ABG Total CO2 17 L (19-24) mmol/L ABG O2 Saturation 99.9 H (94-97) % Sodium (137-145) mmol/L Potassium (3.5-5.1) mmol/L BUN (9-20) mg/dL Glucose (74-99) mg/dL Magnesium (1.6-2.3) mg/dL Total Protein (6.3-8.2) g/dL Albumin (3.5-5.0) g/dL Crossmatch See Detail Assessment and Plan (1) GI bleed Narrative/Plan: Is a patient who presents with acute lower GI bleed. She started having maroon- colored stools with large clots since this morning came to the emergency room this afternoon and since then he had at least 3-4 large bloody bowel movements. Remains hypotensive. Was resuscitated with IV fluids and 2 mL of PRBC transfusion and repeat CBC still pending. Initial hemoglobin at the time of admission the hospital was 12.1 g/dL and repeat 1 prior to blood transfusion was 9.1 g/dL. Since being in the ICU he continues to remain hemodynamically un stable and passing large bloody bowel movements. On review of his records he did have a colonoscopy in November of this year that revealed 2 small polyps in the cecum and transverse colon that were removed. CT angiogram did reveal active extravasation of the contrast in the right colon and transverse colon consistent with active colonic bleed. Current Visit: Yes Status: Acute Code(s): K92.2 - GASTROINTESTINAL HEMORRHAGE, UNSPECIFIED SNOMED Code(s): 62307407 (2) COPD exacerbation Narrative/Plan: Presently on BiPAP. Current Visit: No Status: Acute Code(s): J44.1 - CHRONIC OBSTRUCTIVE PULMONARY DISEASE W (ACUTE) EXACERBATION SNOMED Code(s): 907951797 (3) AAA (abdominal aortic aneurysm) Narrative/Plan: Status post graft several years ago. Recent CT angiogram did not show any aorto enteric fistula. Current Visit: No Status: Acute Code(s): I71.4 - ABDOMINAL AORTIC ANEURYSM, WITHOUT RUPTURE * DO NOT USE * SNOMED Code(s): 985233445 Plan: 1. Continue resuscitating with blood products. Patient is s/p 2 units of PRBC transfusion and he will be transfused 2 more units as he continues to remain hemodynamically unstable. 2. Await CBC results 3. Discussed with patient as well as with Dr. Winslow, general surgeon on-call.. Given the fact that the patient remains hemodynamically unstable and continues to have active ongoing bleeding, he would be a candidate for either surgical intervention or angiography with embolization. Since the patient is not stable to be transferred to a tertiary center, we will continue with aggressive supportive measures and await further recommendations by the general surgery team. Thank you for this consultation. Will follow with you closely. Time with Patient: Greater than 30
[2024-04-04] MEDS: IPRATROPIUM-ALBUTEROL 3 ML NEB INHALATION SCH (20:52)
[2024-04-04] MEDS ORDERED: ATORVASTATIN 40 MG TAB PO SCH (21:00)
[2024-04-04] MEDS: SODIUM CHLORIDE 0.9% 1,000 ML IV ONE (21:00)
[2024-04-04] MEDS: CALCIUM GLUCONATE IN NACL 2 GM in SALINE 1 100ML.BAG IVPB ONE (21:31)
[2024-04-04] MEDS ORDERED: MIDAZOLAM 2 MG/2 ML VIAL ONE (21:43)
[2024-04-04] MEDS: SODIUM CHLORIDE 0.9% 500 ML 500 ML IV ONE ×2 (21:43→22:26)
[2024-04-04] MEDS: IV FLUID CONTINUATION 1,000 ML IV ONE (21:43)
[2024-04-04] MEDS ORDERED: PROPOFOL 10 MG/ML 20 ML VIAL IV ONE (21:43)
[2024-04-04] MEDS ORDERED: ROCURONIUM 10 MG/ML (5 ML VIAL) IV ONE (21:43)
[2024-04-04] MEDS ORDERED: fentaNYL (PF) 50 MCG/ML 2 ML AMP ONE (21:43)
[2024-04-04] MEDS ORDERED: HYDROmorphone (PF) 1 MG/ML ONE (21:43)
[2024-04-04] MEDS ORDERED: PHENYLEPHRINE 10 MG/ML VIAL ONE (21:43)
[2024-04-04] MEDS: SODIUM CHLORIDE 0.9% 100 ML with ceFAZolin 2,000 MG IV ONE (22:16)
--- NOTE | 2024-04-04 23:15 | P.ANPRN ---
Procedure Note - Anesthesia - Invasive Line Right Central Line Time Out Performed: Yes Date of Procedure: 04/04/24 Time of Procedure: 21:55 Location of Patient: OR Preparation: Sterile Prep, Sterile Dressing Central Line Location: Internal Jugular Ultrasound Used: No Purpose - Visualization and Identification of Vasculature: No Image Stored and Saved: No Narrative: Invasive line placement per sterile protocol utilized.
[2024-04-04] MEDS: DEXTROSE 50% SYRINGE 50 ML IVP ONE (23:55)
[2024-04-04 23:57] LABS: Glucose,Whole Blood 45 mg/dL (70-110)
[2024-04-05] MEDS: SODIUM CHLORIDE 0.9% 1,000 ML IV SCH
[2024-04-05] MEDS: propofoL 100 ML IV ONE
[2024-04-05] MEDS: IPRATROPIUM-ALBUTEROL 3 ML NEB INHALATION PRN
--- NOTE | 2024-04-05 00:05 | P.CON ---
Consult Note - . Consult date: 04/04/24 Assessment/Plan:: Patient is a 73-year-old pleasant white male came to the emergency room this afternoon after having 2 episodes of bloody bowel movements at home. He complained of some vague lower abdominal discomfort but no nausea vomiting. He came to the emergency room this afternoon and initially was noted to have a hemoglobin of 12.1 g/dL. However he was noted to be somewhat hypotensive and was resuscitated with fluids. While in the ER he had several large maroon- colored stools with large clots and continues remained hypotensive. He received 2 units of PRBC transfusion prior to which his hemoglobin dropped to 9.5 g/dL. He was transferred to the ICU. Since being in the ICU, he has had another 2 episodes of large bloody bowel movements with dark clots. He denies any abdominal pain at this time. No nausea vomiting. He received 2 units of PRBC transfusion and repeat CBC is pending at this time. He denies being on any any anticoagulation. In the ER he did have CT abdomen and pelvis/angiogram performed which revealed active extravasation of the contrast into the right colon and transverse colon suggestive of active GI bleed. Dr Sher contacted me due to the patient being hypotensive and requiring multiple transfusions that the patient may require surgical intervention. Review of Systems REVIEW OF SYSTEMS: CARDIOPULMONARY: No chest pain or with patient is complaining of severe shortness of breath and was started on BiPAP GENITOURINARY: No dysuria or hematuria. MUSCULOSKELETAL: Unremarkable. SKIN: Unremarkable. ENDOCRINE: Unremarkable. PSYCHIATRIC: Unremarkable. NEUROLOGY: Slightly confused ENT: Vision unremarkable. CONSTITUTIONAL: No recent weight loss. No fever, chills, night sweats. Past Medical History Past Medical History: COPD, GERD/Reflux, Myocardial Infarction ([place]), Pneumonia, Vascular Disorder Additional Past Medical History / Comment(s): Bronchitis, past respiratory failure, PVD, pt states [place] per EKG, beginnings of bilateral cataracts. Mass on lung, agent orange from [place]. Last Myocardial Infarction Date:: 2009 per EKG History of Any Multi-Drug Resistant Organisms: None Reported Past Surgical History: Appendectomy Additional Past Surgical History / Comment(s): Endovascular aortic repair, L iliac stent, colonoscopy Past Anesthesia/Blood Transfusion Reactions: No Reported Reaction Additional Past Anesthesia/Blood Transfusion Reaction / Comm: no blood transfusion Past Psychological History: Anxiety, Depression Smoking Status: Current every day smoker Past Alcohol Use History: None Reported Past Drug Use History: None Reported - Past Family History Mother Family Medical History: Liver Disease Additional Family Medical History / Comment(s): liver cirrhosis Brother(s) Family Medical History: Vascular Disorder Father Family Medical History: Myocardial Infarction ([place]) Physical Exam HEENT examination unremarkable patient presently on BiPAP Neuro he is alert and oriented x 3 no focal deficits Conjunctiva pale, sclera anicteric Oral cavity no lesions or lymph node enlargement Chest decreased breath sounds bilaterally Heart regular rate and rhythm Abdomen was soft he was nontender nondistended pulses are positive Extremities no pedal edema 73 year old with LGIB and is hypotensive requiring 4 units PRBCS -Case discussed with Legal Receptionist Dr Sher -Will take patient to OR for subtotal colectomy and end ileostomy -Transfuse PRBCs prn -ICU Care Pritesh Wing DO [facility] [phone]
[2024-04-05] MEDS: DEXTROSE 50% SYRINGE 50 ML IVP ONE (00:15)
[2024-04-05 00:16] LABS: Glucose,Whole Blood 39 mg/dL (70-110)
[2024-04-05] MEDS: methylPREDNISolone SOD SUCCI 40 MG/ML 1 ML VIAL IV SCH (00:28)
--- NOTE | 2024-04-05 00:28 | P.OP ---
Date of Procedure: 04/04/24 Preoperative Diagnosis: Lower Gastrointestinal Bleed Postoperative Diagnosis: Lower Gastrointestinal Bleed Procedure(s) Performed: 1. Exploratory Laparotomy 2. Subtotal Colectomy with End Ileostomy Anesthesia: MAC Surgeon: Pritesh Wing Estimated Blood Loss (ml): 50 Pathology: other (Colon) Condition: critical Disposition: ICU Indications for Procedure: This is a 73 year old man in the ICU with a Lower Gastrointestinal Bleed. He has had multiple bloody bowel movements with blood clots. He remains hypotensive and had received multiple units of Packed Red Blood Cells. He had a CT-AP which showed active bleeding in the right and transverse colon. He was evaluated by Gastroenterology and was noted to be too unstable for colonoscopy. Surgery was consulted for surgical intervention. Description of Procedure: The patient was taken to the operating suite and placed in the supine position. Endotracheal intubation was performed and anesthesia was given. Anesthesia, at this time, also inserted a central venous catheter and an arterial line. A sinclair catheter was placed. The patient was prepped and draped in the usual sterile fashion. A timeout was performed prior to starting the procedure. A #10 blade was used to make an incision from the subxiphoid area to just above the pubic rami. Bovie electrocautery was used to cauterize through the subcutaneous tissue, fascia, and into the peritoneal cavity. At this point, the small bowel was packed into the upper abdomen. The sigmoid colon was ran to the rectosigmoid junction. A mesenteric window was made at the rectosigmoid junction with bovie. An Endo BUTCH 60 mm purple load was then used to transect the colon. The white line of Toldt and the lateral attachments of the sigmoid, descending, and splenic flexure of the colon were taken down with cautery. The mesetery of this portion of the colon was taken down with a ligasure device. Once the splenic flexure was freed, bovie was used to male a window in the gastrocolic and this was taken down paying special attention to the stomach to make sure it was not injured. The mesentery of the transverse colon was taken down with a ligasure toward the hepatic flexure again making sure to avoid the duodenum. The duodeum was visualized the entire time and there was no injury to the duodeum noted. The lateral attachments of hepatic flexure, ascending colon, and cecum were then taken down cautery. The mesentery of this portion of the colon was taken down with a ligasure. There was also some mesentery of the terminal ileum which was taken down with a ligasure device. A mesenteric window was then made in the distal ileum and an Endo BUTCH 60 mm staple load was used to divide the ileum. The colon specimen was then passed off which included the sigmoid, descending, transverse colon and the cecum. The abdomen was thoroughly irrigated at this time with saline. A hemostatic timeout was performed and there was no active bleeding noted.. At the point, bovie electrocautery was used to male a circular incision in the right lower quadrant. This area was dissected through the skin, subcutaneous tissue, fascia, and into the peritoneal cavity and would be the location for the ileostomy. The ileum was then externalized through this incision. At the point, the midline fascia was closed with two #0 Looped PDS sutures in a running manner in opposite directions. A skin stapler was used to approximate the skin. Attention was turned the externalized ileum. #2-0 Vicryl was used to mature an ileostomy in the right lower quadrant. It should be noted that when the bowel was opened, there was a significant amount of old dark blood appreciated. Once the ileostomy was complete, and the abdomen was cleaned. An ostomy appliance was placed around the ileostomy and a sterile dressing was applied to the midline incision. All counts including sponge and needle counts were correct at the end of the case. This concluded the procedure and the patient was return to the ICU intubated in critical condition.
[2024-04-05] MEDS: MAGNESIUM SULFATE-D5W PMX 1 GM in DEXTROSE/WATER 1 100ML.BAG IVPB ONE ×2 (00:30→07:05)
[2024-04-05 00:32] LABS: ABG Base Excess -5.5 mmol/L; ABG HCO3 21 mmol/L (21-25); ABG Oxygen Saturation 100.2 % (94-97); ABG PCO2 45 mmHg (35-45); ABG PH 7.28 (7.35-7.45); ABG TCO2 22 mmol/L (19-24); Allen Test Performed? Yes
[2024-04-05 00:35] LABS: ABG PO2 >420 mmHg (83-108)
[2024-04-05] MEDS: MORPHINE SULFATE 4 MG/ML SYRINGE IV PRN (00:35)
[2024-04-05] MEDS: DEXMEDETOMIDINE/0.9% NACL(PMX) 400 MCG in EMPTY BAG 1 BAG IV SCH (00:36)
[2024-04-05 00:41] LABS: Glucose,Whole Blood 385 mg/dL (70-110)
[2024-04-05] MEDS: PANTOPRAZOLE 40 MG/10 ML VIAL IVP SCH (00:45)
[2024-04-05 00:52] LABS: HCT 25.6 % (39.0-53.0); HGB 8.7 gm/dL (13.0-17.5); MCH 31.6 pg (25.0-35.0); MCHC 33.9 g/dL (31.0-37.0); MCV 93.2 fL (80.0-100.0); Mean Platelet Volume 7.9; RBC 2.75 m/uL (4.30-5.90); RDW 15.3 % (11.5-15.5); WBC 4.9 k/uL (3.8-10.6)
[2024-04-05 00:53] LABS: Platelet Count 63 k/uL (150-450)
[2024-04-05] MEDS: SODIUM CHLORIDE 0.9% 500 ML 500 ML IV ONE ×2 (01:15→02:10)
[2024-04-05] MEDS: PIPERACILLIN-TAZOBACTAM 3.375 GM in SODIUM CHLORIDE 0.9% 100 ML IVPB SCH (02:03)
--- NOTE | 2024-04-05 02:04 | XR ---
EXAM: XR Chest, 1 View CLINICAL HISTORY: ITS.REASON XR Reason: Tube placement TECHNIQUE: Frontal view of the chest. COMPARISON: No relevant prior studies available. IMPRESSION: ET tube, right central line in good position. NG tube site port is above the diaphragm. Advance 5 cm. There appears to be air under the right hemidiaphragm.
[2024-04-05 02:08] LABS: Glucose,Whole Blood 277 mg/dL (70-110)
[2024-04-05] MEDS: SODIUM CHLORIDE 0.9% 1,000 ML IV ONE ×3 (03:30→17:48)
[2024-04-05] MEDS: NOREPINEPHRINE 4 MG in SODIUM CHLORIDE 0.9% 250 ML IV SCH (04:20)
[2024-04-05 04:46] LABS: ABG Base Excess -11.1 mmol/L; ABG HCO3 16 mmol/L (21-25); ABG Oxygen Saturation 98.5 % (94-97); ABG PCO2 41 mmHg (35-45); ABG PO2 123 mmHg (83-108); ABG TCO2 17 mmol/L (19-24); Allen Test Performed? Yes
[2024-04-05 05:09] LABS: HCT 25.5 % (39.0-53.0); HGB 8.7 gm/dL (13.0-17.5); MCH 31.7 pg (25.0-35.0); MCV 93.4 fL (80.0-100.0); Mean Platelet Volume 9.3; Platelet Count 77 k/uL (150-450); RBC 2.73 m/uL (4.30-5.90); RDW 15.7 % (11.5-15.5); WBC 10.3 k/uL (3.8-10.6)
[2024-04-05 05:27] LABS: Glucose,Whole Blood 200 mg/dL (70-110)
[2024-04-05 05:39] LABS: African American GFR (CKD) >90 (>60 ml/min/1.73 sqM); Anion Gap 2 mmol/L; Blood Urea Nitrogen 38 mg/dL (9-20); Calcium 7.2 mg/dL (8.4-10.2); Carbon Dioxide 16 mmol/L (22-30); Chloride 110 mmol/L (98-107); Glucose 190 mg/dL (74-99); Magnesium 1.8 mg/dL (1.6-2.3); Non-African American GFR(CKD) 79 (>60 ml/min/1.73 sqM); Potassium 5.1 mmol/L (3.5-5.1); Sodium 128 mmol/L (137-145)
[2024-04-05] MEDS: SODIUM BICARB 8.4% 50 ML SYR (1 MEQ/ML) ONE (05:40)
[2024-04-05] MEDS: DEXTROSE 5% IN WATER 1,000 ML with SODIUM BICARB (1 MEQ/ML) 150 ML IV SCH (06:01)
[2024-04-05] MEDS ORDERED: TIOTROPIUM 2.5 MCG INHALER INHALATION SCH (08:00)
[2024-04-05] MEDS ORDERED: BUDESONIDE 0.5 MG/2 ML NEBU INHALATION SCH (08:00)
[2024-04-05] MEDS: FORMOTEROL FUMARATE 20 MCG/2 ML NEBU INHALATION SCH (08:25)
[2024-04-05] MEDS: BUDESONIDE 1 MG/2 ML NEBU INHALATION SCH (08:25)
[2024-04-05] MEDS: CHLORHEXIDINE GLUCONATE 15 ML CUP MUCOUS MEM SCH (08:26)
--- NOTE | 2024-04-05 08:26 | XR ---
EXAMINATION TYPE: XR chest 1V portable DATE OF EXAM: 04/05/2024 COMPARISON: 04/05/2024 HISTORY: SOB, Follow Up FINDINGS: Indwelling tubes and catheters are unchanged. NG tube is seen coursing into the stomach. Right apical opacity persists unchanged. Stable appearance of the cardio-mediastinal structures at this time. Pneumoperitoneum again noted likely postoperative in nature. IMPRESSION: 1. Stable portable chest. Clinical correlation and follow up until resolution is recommended.
[2024-04-05] MEDS ORDERED: PANTOPRAZOLE 40 MG/10 ML VIAL IV SCH (09:00)
[2024-04-05] MEDS ORDERED: lisinopriL 10 MG TAB PO SCH (09:00)
[2024-04-05 09:58] LABS: ABG Base Excess -11.4 mmol/L; ABG HCO3 16 mmol/L (21-25); ABG Oxygen Saturation 98.6 % (94-97); ABG PCO2 43 mmHg (35-45); ABG PO2 129 mmHg (83-108); ABG TCO2 18 mmol/L (19-24)
[2024-04-05 09:59] LABS: ABG PH 7.18 (7.35-7.45); Allen Test Performed? no
[2024-04-05] MEDS: SODIUM BICARB 8.4% 50 ML SYR (1 MEQ/ML) IV STA ×2 (10:48→10:49)
[2024-04-05] MEDS: MORPHINE SULFATE 2 MG/ML SYRINGE IV PRN (10:57)
--- NOTE | 2024-04-05 11:47 | P.PN ---
Subjective Progress Note Date: 04/05/24 73 year old M with PMH of COPD, CAD, PVD, L iliac stent presented to the ED after a syncopal episode at home after an episode of diarrhea. In the ED he underwent extensive evaluation. BP 83/60, HR 86, T 97.4F, RR 18, 80% on RA?. CBC, Coag panel, CMP significant for RBC 3.62, Hg 12.1, Hct 35.5, Na 130, K 5.7, BUN 24, glu 145, alb 3.4. Mag 1.5. Troponin < 0.012. UA negative. CXR chronic changes. CT head and C-spine no acute process. EKG sinus rhythm with first degree AV block. Initially plans for discharge home however patient had a large maroon colored bowel movement and a Hg drop to 9.4 while in the ED. 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 ER provider discussed the case with GI and arrangements were made for admission to ICU for C-scope tomorrow. Transfused 4 units PRBC. GI evaluated the patient and recommended surgery consult. 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 04/05 Patient was seen and examined. Intubated sedated with Propofol at 25 mcg/kg/min. POD 0 subtotal colectomy with end ileostomy. Hypoglycemic as low as 39 overnight requiring D5. Currently on Levophed at 0.2 mcg/kg/min. Antibiotics include Zosyn 3.375g IV TID. CBC and BMP significant for RBC 2.73, Hg 8.7, Hct 25.5, Plt 77, Na 128, Cl 110, bicarb 16, BUN 38, glu 190, Ca 7.2. Mag 1.8. ABG pH 7.2, pCO2 41, pO2 123 FiO2 50. CXR shows ET tube, central line, NG tube, air under the right hemidiaphragm. General: Intubated Derm: Warm, dry Head: Atraumatic, normocephalic, symmetric Eyes: no lid lag, anicteric sclera Mouth: No lip lesion, mucus membranes moist Cardiovascular: S1 S2 tachy. No murmurs, rubs, gallops Lungs: Coarse breath sounds bilaterally, no accessory muscle use Abdominal: Soft, non distended, surgical scar intact dressing c/d/i Ext: No gross muscle atrophy, no edema, no contractures Psych: Intubated Based on my assessment of this patient, this patient meets a high complexity level of care. Lower GI bleed status post exploratory laparotomy and subtotal colectomy with end ileostomy on 04/05: As seen on CT AP. Protonix 40 mg IV BID. Status post 4 unit PRBC ordered. Transfuse if Hg < 7. Telemetry monitoring. Admit to ICU. Surgery on board. Hypovolemic shock: Maintain Levophed titrate to MAP > 65. Empirically on Zosyn 3.375g IV TID. D5W with NaHCO3 at 125 cc/hr. Obtain BCx, Sputum Cx. Acute hypoxic respiratory failure COPD exacerbation: DuoNeb QID scheduled and PRN for SOB/wheezing. Solumedrol 40 mg IV TID. Symbicort 2 INH BID. Performist 20 mcg INH BID. Pulmonary on board. Hypoglycemia: Improved with D5. Now hyperglycemic. Accuchecks A4H. Check A1c. Hyponatremia: Hypovolemic. IV hydration as above. Prerenal azotemia: IV hydration as above. Thrombocytopenia: Likely reactive in the setting of acute stressor. CAD, PVD, L iliac stent: Hold ASA Resolved: HyperK, HypoMag CODE STATUS: FULL CODE DVT Prophylaxis: SCD GI Prophylaxis: Protonix IV Designated medical POA if patient is not able to make medical decisions for themselves: I have reviewed the following skin care consultant notes: Surgery and GI note. I have reviewed the results of the following tests: As above. I have ordered the following tests: As above. I have discussed the care of this patient with the following independent historian: Family at bedside. I have independently interpreted the following test below: CXR I have discussed the management of this patient with the following physician: Objective - Vital Signs Vital signs: Vital Signs Temp 37.2 F L 04/05/24 05:00 Pulse 111 H 04/05/24 07:45 Resp 23 04/05/24 07:45 BP 174/69 04/04/24 23:59 Pulse Ox 99 04/05/24 04:30 FiO2 50 04/05/24 00:36 Intake & Output 04/04/24 04/05/24 04/05/24 18:59 06:59 18:59 Intake Total 310 5003.501 239.517 Output Total 200 1695 40 Balance 110 3308.501 199.517 Weight 63.503 kg 66.7 kg Intake: IV 3970 225 Calcium Gluconate in NaCl 120 2 gm In Saline 1 100ml. bag @ 100 mls/hr IVPB ONCE ONE Rx#:[id number] Dextrose 5% in Water 1, 125 125 000 ml @ 125 mls/hr IV . Q9H12M BOBBY with Sodium Bicarb (1 Meq/ml) 150 ml Rx#:[id number] Magnesium Sulfate-D5w Pmx 100 100 1 gm In Dextrose/Water 1 100ml.bag @ 100 mls/hr IVPB ONCE ONE Rx#: [id number] Sodium Chloride 0.9% 1, 225 000 ml @ 75 mls/hr IV . [id number] BOBBY Rx#:[id number] Sodium Chloride 0.9% 1, 2000 000 ml @ 999 mls/hr IV . Q1H1M ONE Rx#:[id number] Intake, IV Titration 103.501 14.517 Amount Norepinephrine 4 mg In 85.085 14.517 Sodium Chloride 0.9% 250 ml @ 0.03 MCG/KG/MIN 7. 258 mls/hr IV .Q24H BOBBY Rx#:[id number] propofoL 1,000 mg In 18.416 Empty Bag 1 bag @ 15 MCG/ KG/MIN 5.715 mls/hr IV . [id number] BOBBY Rx#:[id number] Blood Product 310 930 Rc As-1 Unit 310 [id number] Rc As-1 Unit 0 310 [id number] Rc As-1 Unit 310 [id number] Rc As-1 Unit 310 [id number] Output: Urine 200 1595 40 Estimated Blood Loss 100 Other: Voiding Method Indwelling Catheter # Voids 1 # Bowel Movements 1 ABP, PAP, CO, CI - Last Documented Arterial Blood Pressure 122/72 - Labs CBC & Chem 7: 04/05/24 04:06 04/05/24 04:06 Labs: Abnormal Lab Results - Last 24 Hours (Table) 04/04/24 04/04/24 04/04/24 Range/Units 11:19 11:19 15:04 RBC 3.62 L 2.85 L (4.30-5.90) m/uL Hgb 12.1 L 9.4 L D (13.0-17.5) gm/dL Hct 35.5 L 27.7 L (39.0-53.0) % RDW (11.5-15.5) % Plt Count (150-450) k/uL ABG pH (7.35-7.45) ABG pCO2 (35-45) mmHg ABG pO2 (83-108) mmHg ABG HCO3 (21-25) mmol/L ABG Total CO2 (19-24) mmol/L ABG O2 Saturation (94-97) % Sodium 130 L (137-145) mmol/L Potassium 5.7 H (3.5-5.1) mmol/L Chloride (98-107) mmol/L Carbon Dioxide (22-30) mmol/L BUN 24 H (9-20) mg/dL Glucose 145 H (74-99) mg/dL POC Glucose (mg/dL) (70-110) mg/dL Calcium (8.4-10.2) mg/dL Magnesium 1.5 L (1.6-2.3) mg/dL Total Protein 5.7 L (6.3-8.2) g/dL Albumin 3.4 L (3.5-5.0) g/dL Crossmatch 04/04/24 04/04/24 04/04/24 Range/Units 16:35 18:30 20:10 RBC 3.09 L (4.30-5.90) m/uL Hgb 9.7 L (13.0-17.5) gm/dL Hct 29.7 L (39.0-53.0) % RDW (11.5-15.5) % Plt Count 100 L (150-450) k/uL ABG pH (7.35-7.45) ABG pCO2 29 L (35-45) mmHg ABG pO2 245 H (83-108) mmHg ABG HCO3 16 L (21-25) mmol/L ABG Total CO2 17 L (19-24) mmol/L ABG O2 Saturation 99.9 H (94-97) % Sodium (137-145) mmol/L Potassium (3.5-5.1) mmol/L Chloride (98-107) mmol/L Carbon Dioxide (22-30) mmol/L BUN (9-20) mg/dL Glucose (74-99) mg/dL POC Glucose (mg/dL) (70-110) mg/dL Calcium (8.4-10.2) mg/dL Magnesium (1.6-2.3) mg/dL Total Protein (6.3-8.2) g/dL Albumin (3.5-5.0) g/dL Crossmatch See Detail 04/04/24 04/04/24 04/05/24 Range/Units 20:10 23:55 00:15 RBC (4.30-5.90) m/uL Hgb (13.0-17.5) gm/dL Hct (39.0-53.0) % RDW (11.5-15.5) % Plt Count (150-450) k/uL ABG pH (7.35-7.45) ABG pCO2 (35-45) mmHg ABG pO2 (83-108) mmHg ABG HCO3 (21-25) mmol/L ABG Total CO2 (19-24) mmol/L ABG O2 Saturation (94-97) % Sodium (137-145) mmol/L Potassium 6.0 H (3.5-5.1) mmol/L Chloride (98-107) mmol/L Carbon Dioxide (22-30) mmol/L BUN (9-20) mg/dL Glucose (74-99) mg/dL POC Glucose (mg/dL) 45 L* 39 L* (70-110) mg/dL Calcium (8.4-10.2) mg/dL Magnesium (1.6-2.3) mg/dL Total Protein (6.3-8.2) g/dL Albumin (3.5-5.0) g/dL Crossmatch 04/05/24 04/05/24 04/05/24 Range/Units 00:28 00:35 00:40 RBC 2.75 L (4.30-5.90) m/uL Hgb 8.7 L (13.0-17.5) gm/dL Hct 25.6 L (39.0-53.0) % RDW (11.5-15.5) % Plt Count 63 L (150-450) k/uL ABG pH 7.28 L (7.35-7.45) ABG pCO2 (35-45) mmHg ABG pO2 >420 H (83-108) mmHg ABG HCO3 (21-25) mmol/L ABG Total CO2 (19-24) mmol/L ABG O2 Saturation 100.2 H (94-97) % Sodium (137-145) mmol/L Potassium (3.5-5.1) mmol/L Chloride (98-107) mmol/L Carbon Dioxide (22-30) mmol/L BUN (9-20) mg/dL Glucose (74-99) mg/dL POC Glucose (mg/dL) 385 H (70-110) mg/dL Calcium (8.4-10.2) mg/dL Magnesium (1.6-2.3) mg/dL Total Protein (6.3-8.2) g/dL Albumin (3.5-5.0) g/dL Crossmatch 04/05/24 04/05/24 04/05/24 Range/Units 02:07 04:06 04:06 RBC 2.73 L (4.30-5.90) m/uL Hgb 8.7 L (13.0-17.5) gm/dL Hct 25.5 L (39.0-53.0) % RDW 15.7 H (11.5-15.5) % Plt Count 77 L (150-450) k/uL ABG pH (7.35-7.45) ABG pCO2 (35-45) mmHg ABG pO2 (83-108) mmHg ABG HCO3 (21-25) mmol/L ABG Total CO2 (19-24) mmol/L ABG O2 Saturation (94-97) % Sodium 128 L (137-145) mmol/L Potassium (3.5-5.1) mmol/L Chloride 110 H (98-107) mmol/L Carbon Dioxide 16 L (22-30) mmol/L BUN 38 H (9-20) mg/dL Glucose 190 H (74-99) mg/dL POC Glucose (mg/dL) 277 H (70-110) mg/dL Calcium 7.2 L (8.4-10.2) mg/dL Magnesium (1.6-2.3) mg/dL Total Protein (6.3-8.2) g/dL Albumin (3.5-5.0) g/dL Crossmatch 04/05/24 04/05/24 Range/Units 04:45 05:26 RBC (4.30-5.90) m/uL Hgb (13.0-17.5) gm/dL Hct (39.0-53.0) % RDW (11.5-15.5) % Plt Count (150-450) k/uL ABG pH 7.20 L (7.35-7.45) ABG pCO2 (35-45) mmHg ABG pO2 123 H (83-108) mmHg ABG HCO3 16 L (21-25) mmol/L ABG Total CO2 17 L (19-24) mmol/L ABG O2 Saturation 98.5 H (94-97) % Sodium (137-145) mmol/L Potassium (3.5-5.1) mmol/L Chloride (98-107) mmol/L Carbon Dioxide (22-30) mmol/L BUN (9-20) mg/dL Glucose (74-99) mg/dL POC Glucose (mg/dL) 200 H (70-110) mg/dL Calcium (8.4-10.2) mg/dL Magnesium (1.6-2.3) mg/dL Total Protein (6.3-8.2) g/dL Albumin (3.5-5.0) g/dL Crossmatch
[2024-04-05 11:51] LABS: Glucose,Whole Blood 222 mg/dL (70-110)
[2024-04-05 12:19] LABS: Anisocytosis Slight; HCT 24.9 % (39.0-53.0); HGB 8.3 gm/dL (13.0-17.5); MCH 31.5 pg (25.0-35.0); MCHC 33.2 g/dL (31.0-37.0); MCV 94.7 fL (80.0-100.0); Mean Platelet Volume 9.9; RBC 2.62 m/uL (4.30-5.90)
[2024-04-05 12:24] LABS: Platelet Count 73 k/uL (150-450)
--- NOTE | 2024-04-05 13:05 | P.PN ---
Subjective Progress Note Date: 04/05/24 Principal diagnosis: Patient is a 73-year-old pleasant white male came to the emergency room this afternoon after having 2 episodes of bloody bowel movements at home. He complained of some vague lower abdominal discomfort but no nausea vomiting. Came to the emergency room this afternoon and initially was noted to have a hemoglobin of 12.1 g/dL. However he was noted to be somewhat hypotensive and was resuscitated with fluids. While in the ER he had several large maroon-col ored stools with large clots and continues remain hypertensive. He received 2 units of PRBC transfusion prior to which his hemoglobin dropped to 9.5 g/dL. He was transferred to the intensive care unit. Since being in the ICU he had another 2 episodes of large bloody bowel movements with dark clots. He denies any abdominal pain at this time. No nausea vomiting. He received 2 units of PRBC transfusion and repeat CBC is pending at this time. He denies being on any any anticoagulation. In the ER he did have CT abdomen and pelvis/angiogram performed which revealed active extravasation of the contrast into the right colon and transverse colon suggestive of active GI bleed. His last colonoscopy done in November of this year revealed 1 cm cecal polyp and a 5 mm transverse colon polyp that was removed. 04/05/2024 Patient seen and examined today as a follow-up. He remains in the ICU. Yester day he he underwent exploratory laparotomy with subtotal colectomy with end ileostomy with general surgery. He remains sedated and intubated. He is on pressors, having some bloody output from ostomy. No rectal bleeding. He was transfused for total of 4 units yesterday. Repeat hemoglobin this morning is 8.7. Patient is a 73-year-old pleasant white male came to the emergency room this afternoon after having 2 episodes of bloody bowel movements at home. He complained of some vague lower abdominal discomfort but no nausea vomiting. Came to the emergency room this afternoon and initially was noted to have a hemoglobin of 12.1 g/dL. However he was noted to be somewhat hypotensive and was resuscitated with fluids. While in the ER he had several large maroon- colored stools with large clots and continues remain hypertensive. He received 2 units of PRBC transfusion prior to which his hemoglobin dropped to 9.5 g/dL. He was transferred to the intensive care unit. Since being in the ICU he had another 2 episodes of large bloody bowel movements with dark clots. He denies any abdominal pain at this time. No nausea vomiting. He received 2 units of PRBC transfusion and repeat CBC is pending at this time. He denies being on any any anticoagulation. In the ER he did have CT abdomen and pelvis/angiogram performed which revealed active extravasation of the contrast into the right colon and transverse colon suggestive of active GI bleed. His last colonoscopy done in November of this year revealed 1 cm cecal polyp and a 5 mm transverse colon polyp that was removed. 04/05/2024 Patient seen and examined today as a follow-up. He remains in the ICU. Yesterday he he underwent exploratory laparotomy with subtotal colectomy with end ileostomy with general surgery. He remains sedated and intubated. He is on pressors, having some bloody output from ostomy. No rectal bleeding. He was transfused for total of 4 units yesterday. Repeat hemoglobin this morning is 8.7, platelets 77,000. Patient continued to have further bleeding out of the ileostomy for total of 650 cc today. Objective - Vital Signs Vital signs: Vital Signs Temp 98.6 F 04/05/24 08:00 Pulse 114 H 04/05/24 08:36 Resp 25 H 04/05/24 08:00 BP 174/69 04/04/24 23:59 Pulse Ox 99 04/05/24 04:30 FiO2 50 04/05/24 08:00 Intake & Output 04/04/24 04/05/24 04/05/24 18:59 06:59 18:59 Intake Total 310 5003.501 288.470 Output Total 200 1695 40 Balance 110 3308.501 248.470 Weight 63.503 kg 66.7 kg Intake: IV 3970 225 Calcium Gluconate in NaCl 120 2 gm In Saline 1 100ml. bag @ 100 mls/hr IVPB ONCE ONE Rx#:[id number] Dextrose 5% in Water 1, 125 125 000 ml @ 125 mls/hr IV . Q9H12M BOBBY with Sodium Bicarb (1 Meq/ml) 150 ml Rx#:[id number] Magnesium Sulfate-D5w Pmx 100 100 1 gm In Dextrose/Water 1 100ml.bag @ 100 mls/hr IVPB ONCE ONE Rx#: [id number] Sodium Chloride 0.9% 1, 225 000 ml @ 75 mls/hr IV . [id number] BOBBY Rx#:[id number] Sodium Chloride 0.9% 1, 2000 000 ml @ 999 mls/hr IV . Q1H1M ONE Rx#:[id number] Intake, IV Titration 103.501 63.470 Amount Norepinephrine 4 mg In 85.085 63.470 Sodium Chloride 0.9% 250 ml @ 0.03 MCG/KG/MIN 7. 258 mls/hr IV .Q24H BOBBY Rx#:[id number] propofoL 1,000 mg In 18.416 Empty Bag 1 bag @ 15 MCG/ KG/MIN 5.715 mls/hr IV . [id number] BOBBY Rx#:[id number] Blood Product 310 930 Rc As-1 Unit 310 [id number] Rc As-1 Unit 0 310 [id number] Rc As-1 Unit 310 [id number] Rc As-1 Unit 310 [id number] Output: Urine 200 1595 40 Estimated Blood Loss 100 Other: Voiding Method Indwelling Catheter # Voids 1 # Bowel Movements 1 ABP, PAP, CO, CI - Last Documented Arterial Blood Pressure 139/76 - Exam General appearance: The patient is dated and intubated. HET: Head is normocephalic and atraumatic. Conjunctiva pink. Sclera anicteric. Neck: Supple without lymphadenopathy. Abdomen: Soft, nontender, nondistended, right ileostomy with bloody output. Extremities: Normal skin color and turgor. No pedal edema Skin: No rashes, no jaundice Neurological: Sedated and intubated. - Labs CBC & Chem 7: 04/05/24 11:50 04/05/24 04:06 Labs: Abnormal Lab Results - Last 24 Hours (Table) 04/04/24 04/04/24 04/04/24 Range/Units 11:19 11:19 15:04 RBC 3.62 L 2.85 L (4.30-5.90) m/uL Hgb 12.1 L 9.4 L D (13.0-17.5) gm/dL Hct 35.5 L 27.7 L (39.0-53.0) % RDW (11.5-15.5) % Plt Count (150-450) k/uL ABG pH (7.35-7.45) ABG pCO2 (35-45) mmHg ABG pO2 (83-108) mmHg ABG HCO3 (21-25) mmol/L ABG Total CO2 (19-24) mmol/L ABG O2 Saturation (94-97) % Sodium 130 L (137-145) mmol/L Potassium 5.7 H (3.5-5.1) mmol/L Chloride (98-107) mmol/L Carbon Dioxide (22-30) mmol/L BUN 24 H (9-20) mg/dL Glucose 145 H (74-99) mg/dL POC Glucose (mg/dL) (70-110) mg/dL Calcium (8.4-10.2) mg/dL Magnesium 1.5 L (1.6-2.3) mg/dL Total Protein 5.7 L (6.3-8.2) g/dL Albumin 3.4 L (3.5-5.0) g/dL Crossmatch 04/04/24 04/04/24 04/04/24 Range/Units 16:35 18:30 20:10 RBC 3.09 L (4.30-5.90) m/uL Hgb 9.7 L (13.0-17.5) gm/dL Hct 29.7 L (39.0-53.0) % RDW (11.5-15.5) % Plt Count 100 L (150-450) k/uL ABG pH (7.35-7.45) ABG pCO2 29 L (35-45) mmHg ABG pO2 245 H (83-108) mmHg ABG HCO3 16 L (21-25) mmol/L ABG Total CO2 17 L (19-24) mmol/L ABG O2 Saturation 99.9 H (94-97) % Sodium (137-145) mmol/L Potassium (3.5-5.1) mmol/L Chloride (98-107) mmol/L Carbon Dioxide (22-30) mmol/L BUN (9-20) mg/dL Glucose (74-99) mg/dL POC Glucose (mg/dL) (70-110) mg/dL Calcium (8.4-10.2) mg/dL Magnesium (1.6-2.3) mg/dL Total Protein (6.3-8.2) g/dL Albumin (3.5-5.0) g/dL Crossmatch See Detail 04/04/24 04/04/24 04/05/24 Range/Units 20:10 23:55 00:15 RBC (4.30-5.90) m/uL Hgb (13.0-17.5) gm/dL Hct (39.0-53.0) % RDW (11.5-15.5) % Plt Count (150-450) k/uL ABG pH (7.35-7.45) ABG pCO2 (35-45) mmHg ABG pO2 (83-108) mmHg ABG HCO3 (21-25) mmol/L ABG Total CO2 (19-24) mmol/L ABG O2 Saturation (94-97) % Sodium (137-145) mmol/L Potassium 6.0 H (3.5-5.1) mmol/L Chloride (98-107) mmol/L Carbon Dioxide (22-30) mmol/L BUN (9-20) mg/dL Glucose (74-99) mg/dL POC Glucose (mg/dL) 45 L* 39 L* (70-110) mg/dL Calcium (8.4-10.2) mg/dL Magnesium (1.6-2.3) mg/dL Total Protein (6.3-8.2) g/dL Albumin (3.5-5.0) g/dL Crossmatch 04/05/24 04/05/24 04/05/24 Range/Units 00:28 00:35 00:40 RBC 2.75 L (4.30-5.90) m/uL Hgb 8.7 L (13.0-17.5) gm/dL Hct 25.6 L (39.0-53.0) % RDW (11.5-15.5) % Plt Count 63 L (150-450) k/uL ABG pH 7.28 L (7.35-7.45) ABG pCO2 (35-45) mmHg ABG pO2 >420 H (83-108) mmHg ABG HCO3 (21-25) mmol/L ABG Total CO2 (19-24) mmol/L ABG O2 Saturation 100.2 H (94-97) % Sodium (137-145) mmol/L Potassium (3.5-5.1) mmol/L Chloride (98-107) mmol/L Carbon Dioxide (22-30) mmol/L BUN (9-20) mg/dL Glucose (74-99) mg/dL POC Glucose (mg/dL) 385 H (70-110) mg/dL Calcium (8.4-10.2) mg/dL Magnesium (1.6-2.3) mg/dL Total Protein (6.3-8.2) g/dL Albumin (3.5-5.0) g/dL Crossmatch 04/05/24 04/05/24 04/05/24 Range/Units 02:07 04:06 04:06 RBC 2.73 L (4.30-5.90) m/uL Hgb 8.7 L (13.0-17.5) gm/dL Hct 25.5 L (39.0-53.0) % RDW 15.7 H (11.5-15.5) % Plt Count 77 L (150-450) k/uL ABG pH (7.35-7.45) ABG pCO2 (35-45) mmHg ABG pO2 (83-108) mmHg ABG HCO3 (21-25) mmol/L ABG Total CO2 (19-24) mmol/L ABG O2 Saturation (94-97) % Sodium 128 L (137-145) mmol/L Potassium (3.5-5.1) mmol/L Chloride 110 H (98-107) mmol/L Carbon Dioxide 16 L (22-30) mmol/L BUN 38 H (9-20) mg/dL Glucose 190 H (74-99) mg/dL POC Glucose (mg/dL) 277 H (70-110) mg/dL Calcium 7.2 L (8.4-10.2) mg/dL Magnesium (1.6-2.3) mg/dL Total Protein (6.3-8.2) g/dL Albumin (3.5-5.0) g/dL Crossmatch 04/05/24 04/05/24 Range/Units 04:45 05:26 RBC (4.30-5.90) m/uL Hgb (13.0-17.5) gm/dL Hct (39.0-53.0) % RDW (11.5-15.5) % Plt Count (150-450) k/uL ABG pH 7.20 L (7.35-7.45) ABG pCO2 (35-45) mmHg ABG pO2 123 H (83-108) mmHg ABG HCO3 16 L (21-25) mmol/L ABG Total CO2 17 L (19-24) mmol/L ABG O2 Saturation 98.5 H (94-97) % Sodium (137-145) mmol/L Potassium (3.5-5.1) mmol/L Chloride (98-107) mmol/L Carbon Dioxide (22-30) mmol/L BUN (9-20) mg/dL Glucose (74-99) mg/dL POC Glucose (mg/dL) 200 H (70-110) mg/dL Calcium (8.4-10.2) mg/dL Magnesium (1.6-2.3) mg/dL Total Protein (6.3-8.2) g/dL Albumin (3.5-5.0) g/dL Crossmatch Assessment and Plan (1) GI bleed Narrative/Plan: 73-year-old patient who presents with acute lower GI bleed. She started having maroon-colored stools with large clots since this morning came to the emergency room this afternoon and since then he had at least 3-4 large bloody bowel movements. Remains hypotensive. Was resuscitated with IV fluids and 2 mL of PRBC transfusion and repeat CBC still pending. Initial hemoglobin at the time of admission the hospital was 12.1 g/dL and repeat 1 prior to blood transfusion was 9.1 g/dL. Since being in the ICU he continues to remain hemodynamically unstable and passing large bloody bowel movements. On review of his records he did have a colonoscopy in November of this year that revealed 2 small polyps in the cecum and transverse colon that were removed. CT angiogram did reveal active extravasation of the contrast in the right colon and transverse colon consistent with active colonic bleed. Was seen by general surgery and taken for exploratory laparotomy and subtotal colectomy with end ileostomy. Continue to monitor blood loss. Will plan for upper endoscopy for further evaluation of blood loss Current Visit: Yes Status: Acute Code(s): K92.2 - GASTROINTESTINAL HEMORRHAGE, UNSPECIFIED SNOMED Code(s): 80686786 (2) AAA (abdominal aortic aneurysm) Narrative/Plan: Status post graft several years ago. Current Visit: No Status: Acute Code(s): I71.4 - ABDOMINAL AORTIC ANEURYSM, WITHOUT RUPTURE * DO NOT USE * SNOMED Code(s): 724568920 (3) COPD exacerbation Current Visit: No Status: Acute Code(s): J44.1 - CHRONIC OBSTRUCTIVE PULMONARY DISEASE W (ACUTE) EXACERBATION SNOMED Code(s): 468711399 Plan: 1. Continue symptomatic and supportive care 2. Continue supportive care in the ICU 3. CBC every 6 hours, transfuse for hemoglobin less than 7 4. Protonix 40 mg IV for GI prophylaxis 5. Continue to monitor blood loss 6. Will plan for upper endoscopy 7. Continue with general surgery recommendations Thank you for this consultation, we will continue to follow closely. Dr. Dipesh Rojas I agree with the dictator's note, documented as a scribe by Yamileth Vásquez.
--- NOTE | 2024-04-05 13:51 | P.PN ---
Subjective Progress Note Date: 04/05/24 Patient seen and examined at bedside. Vented and sedated. On Levophed for pressor therapy. On bicarb drip. Nurse and family at bedside. Objective - Vital Signs Vital signs: Vital Signs Temp 98.2 F 04/05/24 12:00 Pulse 112 H 04/05/24 12:15 Resp 21 04/05/24 12:15 BP 174/69 04/04/24 23:59 Pulse Ox 99 04/05/24 12:15 FiO2 40 04/05/24 12:00 Intake & Output 04/04/24 04/05/24 04/05/24 18:59 06:59 18:59 Intake Total 310 5003.501 2109.571 Output Total 200 1695 380 Balance 110 3308.501 1729.571 Weight 63.503 kg 66.7 kg 66.7 kg Intake: IV 3970 1950 Calcium Gluconate in NaCl 120 2 gm In Saline 1 100ml. bag @ 100 mls/hr IVPB ONCE ONE Rx#:[id number] Dextrose 5% in Water 1, 125 750 000 ml @ 125 mls/hr IV . Q9H12M BOBBY with Sodium Bicarb (1 Meq/ml) 150 ml Rx#:[id number] Magnesium Sulfate-D5w Pmx 100 100 1 gm In Dextrose/Water 1 100ml.bag @ 100 mls/hr IVPB ONCE ONE Rx#: [id number] Piperacillin-Tazobactam 3 100 .375 gm In Sodium Chloride 0.9% 100 ml @ 25 mls/hr IVPB Q8H BOBBY Rx#: [id number] Sodium Chloride 0.9% 1, 225 000 ml @ 75 mls/hr IV . [id number] BOBBY Rx#:[id number] Sodium Chloride 0.9% 1, 2000 1000 000 ml @ 999 mls/hr IV . Q1H1M ONE Rx#:[id number] Intake, IV Titration 103.501 159.571 Amount Norepinephrine 4 mg In 85.085 103.310 Sodium Chloride 0.9% 250 ml @ 0.03 MCG/KG/MIN 7. 258 mls/hr IV .Q24H BOBBY Rx#:[id number] propofoL 1,000 mg In 18.416 56.261 Empty Bag 1 bag @ 15 MCG/ KG/MIN 5.715 mls/hr IV . [id number] BOBBY Rx#:[id number] Blood Product 310 930 Rc As-1 Unit 310 [id number] Rc As-1 Unit 0 310 [id number] Rc As-1 Unit 310 [id number] Rc As-1 Unit 310 [id number] Output: Urine 200 1595 80 Stool 300 Estimated Blood Loss 100 Other: Voiding Method Indwelling Catheter # Voids 1 # Bowel Movements 1 ABP, PAP, CO, CI - Last Documented Arterial Blood Pressure 88/51 - Constitutional Constitutional Comment(s): Vented, sedated - Respiratory Details: Oxygenating well on vent - Cardiovascular Details: Labile blood pressure - Gastrointestinal Gastrointestinal Comment(s): Soft, midline incision site with surgical dressing, ileostomy in place with mild bloody output - Labs CBC & Chem 7: 04/05/24 11:50 04/05/24 04:06 Labs: Abnormal Lab Results - Last 24 Hours (Table) 04/04/24 04/04/24 04/04/24 Range/Units 15:04 16:35 18:30 RBC 2.85 L (4.30-5.90) m/uL Hgb 9.4 L D (13.0-17.5) gm/dL Hct 27.7 L (39.0-53.0) % RDW (11.5-15.5) % Plt Count (150-450) k/uL ABG pH (7.35-7.45) ABG pCO2 29 L (35-45) mmHg ABG pO2 245 H (83-108) mmHg ABG HCO3 16 L (21-25) mmol/L ABG Total CO2 17 L (19-24) mmol/L ABG O2 Saturation 99.9 H (94-97) % Hemoglobin (13.0-17.5) gm/dL Sodium (137-145) mmol/L Potassium (3.5-5.1) mmol/L Chloride (98-107) mmol/L Carbon Dioxide (22-30) mmol/L BUN (9-20) mg/dL Glucose (74-99) mg/dL POC Glucose (mg/dL) (70-110) mg/dL Calcium (8.4-10.2) mg/dL Crossmatch See Detail 04/04/24 04/04/24 04/04/24 Range/Units 20:10 20:10 23:55 RBC 3.09 L (4.30-5.90) m/uL Hgb 9.7 L (13.0-17.5) gm/dL Hct 29.7 L (39.0-53.0) % RDW (11.5-15.5) % Plt Count 100 L (150-450) k/uL ABG pH (7.35-7.45) ABG pCO2 (35-45) mmHg ABG pO2 (83-108) mmHg ABG HCO3 (21-25) mmol/L ABG Total CO2 (19-24) mmol/L ABG O2 Saturation (94-97) % Hemoglobin (13.0-17.5) gm/dL Sodium (137-145) mmol/L Potassium 6.0 H (3.5-5.1) mmol/L Chloride (98-107) mmol/L Carbon Dioxide (22-30) mmol/L BUN (9-20) mg/dL Glucose (74-99) mg/dL POC Glucose (mg/dL) 45 L* (70-110) mg/dL Calcium (8.4-10.2) mg/dL Crossmatch 04/05/24 04/05/24 04/05/24 Range/Units 00:15 00:28 00:35 RBC 2.75 L (4.30-5.90) m/uL Hgb 8.7 L (13.0-17.5) gm/dL Hct 25.6 L (39.0-53.0) % RDW (11.5-15.5) % Plt Count 63 L (150-450) k/uL ABG pH 7.28 L (7.35-7.45) ABG pCO2 (35-45) mmHg ABG pO2 >420 H (83-108) mmHg ABG HCO3 (21-25) mmol/L ABG Total CO2 (19-24) mmol/L ABG O2 Saturation 100.2 H (94-97) % Hemoglobin (13.0-17.5) gm/dL Sodium (137-145) mmol/L Potassium (3.5-5.1) mmol/L Chloride (98-107) mmol/L Carbon Dioxide (22-30) mmol/L BUN (9-20) mg/dL Glucose (74-99) mg/dL POC Glucose (mg/dL) 39 L* (70-110) mg/dL Calcium (8.4-10.2) mg/dL Crossmatch 04/05/24 04/05/24 04/05/24 Range/Units 00:40 02:07 04:06 RBC 2.73 L (4.30-5.90) m/uL Hgb 8.7 L (13.0-17.5) gm/dL Hct 25.5 L (39.0-53.0) % RDW 15.7 H (11.5-15.5) % Plt Count 77 L (150-450) k/uL ABG pH (7.35-7.45) ABG pCO2 (35-45) mmHg ABG pO2 (83-108) mmHg ABG HCO3 (21-25) mmol/L ABG Total CO2 (19-24) mmol/L ABG O2 Saturation (94-97) % Hemoglobin (13.0-17.5) gm/dL Sodium (137-145) mmol/L Potassium (3.5-5.1) mmol/L Chloride (98-107) mmol/L Carbon Dioxide (22-30) mmol/L BUN (9-20) mg/dL Glucose (74-99) mg/dL POC Glucose (mg/dL) 385 H 277 H (70-110) mg/dL Calcium (8.4-10.2) mg/dL Crossmatch 04/05/24 04/05/24 04/05/24 Range/Units 04:06 04:45 05:26 RBC (4.30-5.90) m/uL Hgb (13.0-17.5) gm/dL Hct (39.0-53.0) % RDW (11.5-15.5) % Plt Count (150-450) k/uL ABG pH 7.20 L (7.35-7.45) ABG pCO2 (35-45) mmHg ABG pO2 123 H (83-108) mmHg ABG HCO3 16 L (21-25) mmol/L ABG Total CO2 17 L (19-24) mmol/L ABG O2 Saturation 98.5 H (94-97) % Hemoglobin (13.0-17.5) gm/dL Sodium 128 L (137-145) mmol/L Potassium (3.5-5.1) mmol/L Chloride 110 H (98-107) mmol/L Carbon Dioxide 16 L (22-30) mmol/L BUN 38 H (9-20) mg/dL Glucose 190 H (74-99) mg/dL POC Glucose (mg/dL) 200 H (70-110) mg/dL Calcium 7.2 L (8.4-10.2) mg/dL Crossmatch 04/05/24 04/05/24 04/05/24 Range/Units 09:56 11:50 11:50 RBC 2.62 L (4.30-5.90) m/uL Hgb 8.3 L (13.0-17.5) gm/dL Hct 24.9 L (39.0-53.0) % RDW 16.0 H (11.5-15.5) % Plt Count 73 L (150-450) k/uL ABG pH 7.18 L* (7.35-7.45) ABG pCO2 (35-45) mmHg ABG pO2 129 H (83-108) mmHg ABG HCO3 16 L (21-25) mmol/L ABG Total CO2 18 L (19-24) mmol/L ABG O2 Saturation 98.6 H (94-97) % Hemoglobin 9.0 L (13.0-17.5) gm/dL Sodium (137-145) mmol/L Potassium (3.5-5.1) mmol/L Chloride (98-107) mmol/L Carbon Dioxide (22-30) mmol/L BUN (9-20) mg/dL Glucose (74-99) mg/dL POC Glucose (mg/dL) 222 H (70-110) mg/dL Calcium (8.4-10.2) mg/dL Crossmatch Assessment and Plan Plan: 73-year-old male postoperative day #1, status post subtotal colectomy and end ileostomy creation secondary to unstable GI bleed. Currently on vent and sedated. Continue ICU management. Requiring pressor therapy at this time. Continue bicarb drip per ICU. No oral feeds at this time. Continue to monitor output from ileostomy. Hemoglobin today had been 8.7 and 8.3. Remaining stable.
--- NOTE | 2024-04-05 13:54 | P.PN ---
Subjective Progress Note Date: 04/05/24 Principal diagnosis: Acute lower GI bleeding This is a 73-year-old white male familiar to my service, known history of severe COPD, patient was seen in the ER today, he was brought in with feeling lightheaded and dizzy and diaphoresis. Apparently since earlier today the patient has been experiencing diarrhea and he may have had according to him a syncopal episode. Does not believe that he was out for very long, patient fell, sustained a small abrasion on the right arm and left knee, patient has also been complaining of bright red blood per rectum baseline hemoglobin was 12.1 at 11:15 AM, follow-up hemoglobin at 3 PM was down to 9.4 in addition to her GI symptoms, patient is complaining of coughing wheezing and shortness of breath. GI has been consulted, I saw the patient done in the ER, and I recommended admitting the patient to the ICU. In the meantime the patient may need to have further evaluation for his GI bleeding, he will need to be placed on bronchodilators for his COPD, and will need to be closely monitored, hence I am recommending ICU admission. Patient is known to have history of severe COPD, chronic tobacco dependence, history of abdominal aortic aneurysm and had previous aortoiliac stents, he is also known to have history of hypertension, alcoholism, and his primary care physician is at the [facility]. Baseline FEV1 is in the range of 52%, patient is known to have history of chronic right apical scarring, underlying malignancy is not entirely ruled out, patient is being followed closely on outpatient basis for his abnormal CT of the chest. Chest x-ray on this admission showed mostly right apical scarring, chronic, and evidence of C OPD, otherwise no evidence of acute process. CT of the head and cervical spine, showed no acute intracranial process. Patient evaluated today on 04/05/2024, patient was admitted yesterday to the ICU, and shortly after he arrived to the ICU, his GI bleeding became extremely more profound. Surgery was consulted by gastroenterology, and the patient underwent exploratory laparotomy and subtotal colectomy with end ileostomy. Patient was brought back to the ICU last night on mechanical ventilation, remains intubated mechanically ventilated. He is now on assist-control rate of 16 tidal volume 500 FiO2 50% and PEEP of 5. ABG showed a pO2 of 123 pCO2 41 pH of 7.20, patient remains on bicarb drip. His FiO2 was cut down to 40% tidal volume cut down to 450 and Titrate at 16. Patient is requiring norepinephrine at 0.2 mcg/kg/min he is also on IV fluid at 75 cc/h propofol at 20 mcg/kg/min D5W with 3 A of bicarb running at 125 cc/h patient is empirically on Zosyn, received a total of 4 units of packed RBCs since admission his hemoglobin today is 8.7. Urine output is marginal, 10 cc/h, more fluid boluses were given. Most recent ABG showed a pO2 of 129 pCO2 43 and pH of 7.18 hence more sodium bicarb was given. WBC count is 8.0 hemoglobin 8.3 platelets are 73,000 sodium 128 potassium 5.1 chloride 110 bicarb is 16 BUN is 38 creatinine 0.95. Objective - Vital Signs Vital signs: Vital Signs Temp 98.2 F 04/05/24 12:00 Pulse 112 H 04/05/24 12:15 Resp 21 04/05/24 12:15 BP 174/69 04/04/24 23:59 Pulse Ox 99 04/05/24 12:15 FiO2 40 04/05/24 12:00 Intake & Output 04/04/24 04/05/24 04/05/24 18:59 06:59 18:59 Intake Total 310 5003.501 2109.571 Output Total 200 1695 380 Balance 110 3308.501 1729.571 Weight 63.503 kg 66.7 kg 66.7 kg Intake: IV 3970 1950 Calcium Gluconate in NaCl 120 2 gm In Saline 1 100ml. bag @ 100 mls/hr IVPB ONCE ONE Rx#:[id number] Dextrose 5% in Water 1, 125 750 000 ml @ 125 mls/hr IV . Q9H12M BBOBY with Sodium Bicarb (1 Meq/ml) 150 ml Rx#:[id number] Magnesium Sulfate-D5w Pmx 100 100 1 gm In Dextrose/Water 1 100ml.bag @ 100 mls/hr IVPB ONCE ONE Rx#: [id number] Piperacillin-Tazobactam 3 100 .375 gm In Sodium Chloride 0.9% 100 ml @ 25 mls/hr IVPB Q8H BOBBY Rx#: [id number] Sodium Chloride 0.9% 1, 225 000 ml @ 75 mls/hr IV . [id number] BOBBY Rx#:[id number] Sodium Chloride 0.9% 1, 2000 1000 000 ml @ 999 mls/hr IV . Q1H1M ONE Rx#:[id number] Intake, IV Titration 103.501 159.571 Amount Norepinephrine 4 mg In 85.085 103.310 Sodium Chloride 0.9% 250 ml @ 0.03 MCG/KG/MIN 7. 258 mls/hr IV .Q24H BOBBY Rx#:[id number] propofoL 1,000 mg In 18.416 56.261 Empty Bag 1 bag @ 15 MCG/ KG/MIN 5.715 mls/hr IV . [id number] BOBBY Rx#:[id number] Blood Product 310 930 Rc As-1 Unit 310 [id number] Rc As-1 Unit 0 310 [id number] Rc As-1 Unit 310 [id number] Rc As-1 Unit 310 [id number] Output: Urine 200 1595 80 Stool 300 Estimated Blood Loss 100 Other: Voiding Method Indwelling Catheter # Voids 1 # Bowel Movements 1 ABP, PAP, CO, CI - Last Documented Arterial Blood Pressure 88/51 - Exam GENERAL EXAM: Reveals 73-year-old white male, intubated and mechanically ventilated. HEAD: Normocephalic and atraumatic, endotracheal tube and nasogastric tube intact. EYES: Normal reaction of pupils, equal size. Pale conjunctivae, nonicteric NOSE: Clear with pink turbinates. THROAT: No erythema or exudates. NECK: No masses, no JVD. CHEST: No chest wall deformity. LUNGS: Diminished breath sound crackles at the bases with some wheezing CVS: S1 and S2 normal with no audible murmur, regular rhythm. No extra heart sounds ABDOMEN: Postsurgical, ileostomy is noted SKIN: No rashes CENTRAL NERVOUS SYSTEM: Not assessed patient is sedated, on propofol for EXTREMITIES: There is no peripheral edema, clubbing, or cyanosis. Peripheral pulses are intact. - Labs CBC & Chem 7: 04/05/24 11:50 04/05/24 04:06 Labs: Abnormal Lab Results - Last 24 Hours (Table) 04/04/24 04/04/24 04/04/24 Range/Units 15:04 16:35 18:30 RBC 2.85 L (4.30-5.90) m/uL Hgb 9.4 L D (13.0-17.5) gm/dL Hct 27.7 L (39.0-53.0) % RDW (11.5-15.5) % Plt Count (150-450) k/uL ABG pH (7.35-7.45) ABG pCO2 29 L (35-45) mmHg ABG pO2 245 H (83-108) mmHg ABG HCO3 16 L (21-25) mmol/L ABG Total CO2 17 L (19-24) mmol/L ABG O2 Saturation 99.9 H (94-97) % Hemoglobin (13.0-17.5) gm/dL Sodium (137-145) mmol/L Potassium (3.5-5.1) mmol/L Chloride (98-107) mmol/L Carbon Dioxide (22-30) mmol/L BUN (9-20) mg/dL Glucose (74-99) mg/dL POC Glucose (mg/dL) (70-110) mg/dL Calcium (8.4-10.2) mg/dL Crossmatch See Detail 04/04/24 04/04/24 04/04/24 Range/Units 20:10 20:10 23:55 RBC 3.09 L (4.30-5.90) m/uL Hgb 9.7 L (13.0-17.5) gm/dL Hct 29.7 L (39.0-53.0) % RDW (11.5-15.5) % Plt Count 100 L (150-450) k/uL ABG pH (7.35-7.45) ABG pCO2 (35-45) mmHg ABG pO2 (83-108) mmHg ABG HCO3 (21-25) mmol/L ABG Total CO2 (19-24) mmol/L ABG O2 Saturation (94-97) % Hemoglobin (13.0-17.5) gm/dL Sodium (137-145) mmol/L Potassium 6.0 H (3.5-5.1) mmol/L Chloride (98-107) mmol/L Carbon Dioxide (22-30) mmol/L BUN (9-20) mg/dL Glucose (74-99) mg/dL POC Glucose (mg/dL) 45 L* (70-110) mg/dL Calcium (8.4-10.2) mg/dL Crossmatch 04/05/24 04/05/24 04/05/24 Range/Units 00:15 00:28 00:35 RBC 2.75 L (4.30-5.90) m/uL Hgb 8.7 L (13.0-17.5) gm/dL Hct 25.6 L (39.0-53.0) % RDW (11.5-15.5) % Plt Count 63 L (150-450) k/uL ABG pH 7.28 L (7.35-7.45) ABG pCO2 (35-45) mmHg ABG pO2 >420 H (83-108) mmHg ABG HCO3 (21-25) mmol/L ABG Total CO2 (19-24) mmol/L ABG O2 Saturation 100.2 H (94-97) % Hemoglobin (13.0-17.5) gm/dL Sodium (137-145) mmol/L Potassium (3.5-5.1) mmol/L Chloride (98-107) mmol/L Carbon Dioxide (22-30) mmol/L BUN (9-20) mg/dL Glucose (74-99) mg/dL POC Glucose (mg/dL) 39 L* (70-110) mg/dL Calcium (8.4-10.2) mg/dL Crossmatch 04/05/24 04/05/24 04/05/24 Range/Units 00:40 02:07 04:06 RBC 2.73 L (4.30-5.90) m/uL Hgb 8.7 L (13.0-17.5) gm/dL Hct 25.5 L (39.0-53.0) % RDW 15.7 H (11.5-15.5) % Plt Count 77 L (150-450) k/uL ABG pH (7.35-7.45) ABG pCO2 (35-45) mmHg ABG pO2 (83-108) mmHg ABG HCO3 (21-25) mmol/L ABG Total CO2 (19-24) mmol/L ABG O2 Saturation (94-97) % Hemoglobin (13.0-17.5) gm/dL Sodium (137-145) mmol/L Potassium (3.5-5.1) mmol/L Chloride (98-107) mmol/L Carbon Dioxide (22-30) mmol/L BUN (9-20) mg/dL Glucose (74-99) mg/dL POC Glucose (mg/dL) 385 H 277 H (70-110) mg/dL Calcium (8.4-10.2) mg/dL Crossmatch 04/05/24 04/05/24 04/05/24 Range/Units 04:06 04:45 05:26 RBC (4.30-5.90) m/uL Hgb (13.0-17.5) gm/dL Hct (39.0-53.0) % RDW (11.5-15.5) % Plt Count (150-450) k/uL ABG pH 7.20 L (7.35-7.45) ABG pCO2 (35-45) mmHg ABG pO2 123 H (83-108) mmHg ABG HCO3 16 L (21-25) mmol/L ABG Total CO2 17 L (19-24) mmol/L ABG O2 Saturation 98.5 H (94-97) % Hemoglobin (13.0-17.5) gm/dL Sodium 128 L (137-145) mmol/L Potassium (3.5-5.1) mmol/L Chloride 110 H (98-107) mmol/L Carbon Dioxide 16 L (22-30) mmol/L BUN 38 H (9-20) mg/dL Glucose 190 H (74-99) mg/dL POC Glucose (mg/dL) 200 H (70-110) mg/dL Calcium 7.2 L (8.4-10.2) mg/dL Crossmatch 04/05/24 04/05/24 04/05/24 Range/Units 09:56 11:50 11:50 RBC 2.62 L (4.30-5.90) m/uL Hgb 8.3 L (13.0-17.5) gm/dL Hct 24.9 L (39.0-53.0) % RDW 16.0 H (11.5-15.5) % Plt Count 73 L (150-450) k/uL ABG pH 7.18 L* (7.35-7.45) ABG pCO2 (35-45) mmHg ABG pO2 129 H (83-108) mmHg ABG HCO3 16 L (21-25) mmol/L ABG Total CO2 18 L (19-24) mmol/L ABG O2 Saturation 98.6 H (94-97) % Hemoglobin 9.0 L (13.0-17.5) gm/dL Sodium (137-145) mmol/L Potassium (3.5-5.1) mmol/L Chloride (98-107) mmol/L Carbon Dioxide (22-30) mmol/L BUN (9-20) mg/dL Glucose (74-99) mg/dL POC Glucose (mg/dL) 222 H (70-110) mg/dL Calcium (8.4-10.2) mg/dL Crossmatch Assessment and Plan Assessment: Impression: Massive lower GI bleeding, noted to be from right and transverse colon requiring exploratory laparotomy, subtotal colectomy, and ileostomy, postoperative day #1 Acute exacerbation of COPD Acute blood loss anemia, patient required 4 units of packed RBCs transfusion sin ce admission so far. Chronic right apical scarring History of alcoholism but no previous history of esophageal varices History of abdominal aortic aneurysm status post aortoiliac stent Benign essential hypertension Ongoing tobacco dependence Chronic right upper lobe scarring, underlying malignancy is not entirely ruled out but felt to be less likely Recommendation: Continue ventilatory support Continue hemodynamic support Continue Protonix/GI prophylaxis DVT prophylaxis/Venodyne boots, platelets are low for subcu heparin Continue to monitor hemoglobin hematocrit and transfuse for hemoglobin below 7 Continue bronchodilators including DuoNeb, Symbicort, and Solu-Medrol. Continue IV Zosyn Continue bicarb drip Patient is critically ill Patient may require TPN for nutritional support Prognosis is guarded considering his multiple comorbidities. Critical care time is over 30 minutes Time with Patient: Greater than 30
[2024-04-05 15:24] LABS: Albumin 1.6 g/dL (3.5-5.0); Phosphorus 3.7 mg/dL (2.5-4.5)
[2024-04-05] MEDS ORDERED: PHENYLEPHRINE-0.9% NACL SYG 1,000 MCG/10 ML SYRINGE ONE (15:30)
[2024-04-05] MEDS ORDERED: ROCURONIUM 10 MG/ML (5 ML VIAL) IV ONE (15:30)
--- NOTE | 2024-04-05 15:56 | P.PCN ---
Date of Procedure: 04/05/24 Procedure(s) Performed: BRIEF HISTORY: Patient is a 73-year-old, pleasant, white male who was seen in consultation yesterday for massive GI bleed. Patient presented to emergency room with multiple episodes of maroon-colored stools and bright red blood per rectum and CT angiogram revealed active bleeding in the right colon/transverse colon. He was hemodynamically unstable. Surgery was consulted. He underwent subtotal colectomy last night. This morning he started having active bleeding from the ileostomy and had approximately 600 cc this afternoon. Hemoglobin is at 8.3 g/dL. NG lavage was performed and there was some coffee-ground material that was aspirated through the NGT. Hence an upper endoscopy is being performed to evaluate for upper GI source of bleeding.. PROCEDURE PERFORMED: Esophagogastroduodenoscopy. PREOPERATIVE DIAGNOSIS: Acute GI bleed. IV sedation per anesthesia. PROCEDURE: After informed consent was obtained, the patient family no procedure was performed at the bedside in the intensive care unit.. Initially the Olympus GIF-140 video endoscope was inserted into the mouth. Esophagus intubated without any difficulty. It was gradually advanced into the stomach and duodenum and carefully examined. The bulb and the second part of the duodenum had some old blood identified. Irrigation was performed. No obvious source of bleeding identified in this area. At this time the scope was advanced into the third part of the duodenum and as I was suctioning there was some dilated fresh blood that was aspirated. Despite multiple attempts I was not able to advance the scope any further into the fourth part of the duodenum. I performed thorough suction of the duodenum and the antrum there was some changes in these areas where there was ischemic appearing mucosa but no obvious signs of active bleeding. The scope at this time was withdrawn to the stomach, adequately insufflated with air, and upon careful examination, mucosa of the antrum, had multiple scattered erosions along the greater curvature probably from recent NG tube placement and some trauma related to it. Mucosa of the cardia and the fundus appeared normal. The scope was then withdrawn into the esophagus. The GE junction was located at 39 cm from the incisors. The esophagus appeared normal. The patient tolerated the procedure well. IMPRESSION: 1. Some old blood noted in the stomach and duodenum. 2. Gastritis and duodenitis seen 3. Some fresh dilated blood seen in the third portion of the duodenum as suctioning was being performed but no obvious mucosal lesion i or ulcers dentified in this area. Rule out small bowel source of bleeding and rule out hiatal enteric fistula. RECOMMENDATIONS: The findings of this examination were discussed with Dr. East. At this time possibility of small bowel source of bleeding/aortoenteric fistula cannot be entirely excluded. Recommend vascular consultation and repeat CTA of the abdomen. Continue symptomatic and supportive care. Transfuse as needed.
[2024-04-05 16:52] LABS: Anisocytosis Slight; HCT 25.6 % (39.0-53.0); MCH 31.9 pg (25.0-35.0); MCHC 33.6 g/dL (31.0-37.0); MCV 94.7 fL (80.0-100.0); Mean Platelet Volume 9.9; RDW 16.1 % (11.5-15.5); WBC 11.8 k/uL (3.8-10.6)
[2024-04-05 16:54] LABS: HGB 8.6 gm/dL (13.0-17.5)
[2024-04-05] MEDS: INSULIN ASPART (NovoLOG) 100 UNIT/ML VIAL SQ SCH (17:46)
[2024-04-05 18:00] LABS: Platelet Count 78 k/uL (150-450)
[2024-04-05] MEDS: MVI, ADULT NO.4 WITH VIT K 10 ML, TRACE (CONC-1ML/DOSE) 1 ML, SODIUM ACETATE 30 MEQ, MA... IV ONE (18:07)
[2024-04-05 18:20] LABS: Glucose,Whole Blood 248 mg/dL (70-110)
[2024-04-05 18:22] LABS: ABG Base Excess -8.1 mmol/L; ABG HCO3 18 mmol/L (21-25); ABG Oxygen Saturation 96.6 % (94-97); ABG PCO2 39 mmHg (35-45); ABG PH 7.27 (7.35-7.45); ABG PO2 88 mmHg (83-108); ABG TCO2 19 mmol/L (19-24)
[2024-04-05 18:23] LABS: Allen Test Performed? no
[2024-04-05] MEDS: VASOPRESSIN 60 UNIT in SODIUM CHLORIDE 0.9% 150 ML IV SCH (18:41)
[2024-04-05] MEDS: CISATRACURIUM 2 MG/ML 5 ML VIAL IV ONE (18:48)
[2024-04-05] MEDS: CISATRACURIUM 200 MG in SODIUM CHLORIDE 0.9% 180 ML IV SCH (20:00)
[2024-04-05] MEDS: SODIUM CHLORIDE 0.9% 80 ML with fentaNYL (PF) 1,000 MCG IV SCH (20:39)
--- NOTE | 2024-04-05 21:30 | XR ---
EXAMINATION TYPE: XR chest 1V confirm line [facility] DATE OF EXAM: 04/05/2024 COMPARISON: 04/05/2024 INDICATION: OGT placement TECHNIQUE: Single frontal view of the chest is obtained. FINDINGS: The heart size is normal. The pulmonary vasculature is normal. There is thickening in the right apex. Pneumonia and mass and within the differential. Follow-up is r ecommended. Right central venous catheter is present with the tip in the superior vena cava right atrial junction . Endotracheal tube tip is above the tracy. Nasogastric tube transverses the thorax with the tip in the left upper quadrant of the abdomen. There is a stent at the epigastric region. Surgical skin nicolas are present over the epigastric yeny on. IMPRESSION: 1. Focal density within the upper outer right apex. Neoplasm is not excluded. 2. Lines and catheters discussed above.
[2024-04-05 21:43] LABS: Glucose,Whole Blood 329 mg/dL (70-110)
[2024-04-05 21:56] LABS: HCT 22.9 % (39.0-53.0); HGB 7.5 gm/dL (13.0-17.5); Hypochromasia Slight; MCV 97.1 fL (80.0-100.0); Mean Platelet Volume 9.4; RBC 2.36 m/uL (4.30-5.90); RDW 15.8 % (11.5-15.5); WBC 12.8 k/uL (3.8-10.6)
[2024-04-05 22:43] LABS: Platelet Count 77 k/uL (150-450)
[2024-04-05 23:06] LABS: Glucose,Whole Blood 111 mg/dL (70-110)
[2024-04-05 23:24] LABS: Glucose,Whole Blood 373 mg/dL (70-110)
[2024-04-06] LABS: African American GFR (CKD) 37 (>60 ml/min/1.73 sqM); Anion Gap 6 mmol/L; Blood Urea Nitrogen 49 mg/dL (9-20); Carbon Dioxide 22 mmol/L (22-30); Chloride 106 mmol/L (98-107); Glucose 299 mg/dL (74-99); Non-African American GFR(CKD) 32 (>60 ml/min/1.73 sqM); Potassium 5.2 mmol/L (3.5-5.1); Sodium 134 mmol/L (137-145)
[2024-04-06 02:50] LABS: HCT 22.7 % (39.0-53.0); HGB 7.4 gm/dL (13.0-17.5); Hypochromasia Slight; MCHC 32.8 g/dL (31.0-37.0); MCV 97.5 fL (80.0-100.0); Macrocytosis Slight; Mean Platelet Volume 9.6; RBC 2.33 m/uL (4.30-5.90); RDW 15.8 % (11.5-15.5); WBC 13.1 k/uL (3.8-10.6)
[2024-04-06 03:02] LABS: Platelet Count 71 k/uL (150-450)
[2024-04-06 04:44] LABS: ABG Base Excess -3.2 mmol/L; ABG HCO3 23 mmol/L (21-25); ABG Oxygen Saturation 94.2 % (94-97); ABG PCO2 45 mmHg (35-45); ABG PH 7.31 (7.35-7.45); ABG PO2 74 mmHg (83-108); ABG TCO2 24 mmol/L (19-24); Allen Test Performed? Yes
[2024-04-06] MEDS: SODIUM CHLORIDE 0.9% 1,000 ML IV ONE (05:09)
[2024-04-06 05:28] LABS: Ionized Calcium 4.2 mg/dL (4.5-5.3)
[2024-04-06 05:38] LABS: Anisocytosis Slight; MCH 32.8 pg (25.0-35.0); MCHC 34.5 g/dL (31.0-37.0); Mean Platelet Volume 9.6; RBC 1.94 m/uL (4.30-5.90); RDW 16.2 % (11.5-15.5)
[2024-04-06 05:46] LABS: HCT 18.5 % (39.0-53.0); HGB 6.4 gm/dL (13.0-17.5)
[2024-04-06 05:47] LABS: Platelet Count 56 k/uL (150-450)
[2024-04-06 06:01] LABS: African American GFR (CKD) 36 (>60 ml/min/1.73 sqM); Albumin 1.2 g/dL (3.5-5.0); Alkaline Phosphatase 26 U/L (38-126); Anion Gap 5 mmol/L; Blood Urea Nitrogen 52 mg/dL (9-20); Calcium 6.6 mg/dL (8.4-10.2); Carbon Dioxide 24 mmol/L (22-30); Chloride 107 mmol/L (98-107); Glucose 323 mg/dL (74-99); Magnesium 1.9 mg/dL (1.6-2.3); Non-African American GFR(CKD) 31 (>60 ml/min/1.73 sqM); Phosphorus 5.3 mg/dL (2.5-4.5); Potassium 4.2 mmol/L (3.5-5.1); Sodium 136 mmol/L (137-145); Total Bilirubin 0.5 mg/dL (0.2-1.3); Total Protein 2.5 g/dL (6.3-8.2)
[2024-04-06 06:48] LABS: ALT 2564 U/L (4-49); AST 2789 U/L (17-59)
--- NOTE | 2024-04-06 07:02 | CT ---
EXAM: CT Angiography Abdomen and Pelvis Without and With Intravenous Contrast CLINICAL HISTORY: ITS.REASON CT Reason: rule out aortoenteric fistula TECHNIQUE: Axial computed tomographic angiography images of the abdomen and pelvis without and with intravenous contrast. CTDI is 90.8 mGy and DLP is 920.3 mGy-cm. This CT exam was performed using one or more of the following dose reduction techniques: automated exposure control, adjustment of the mA and/or kV according to patient size, and/or use of iterative reconstruction technique. Imaging was obtained to the level of the sacrum. MIP reconstructed images were created and reviewed. COMPARISON: No relevant prior studies available. FINDINGS: Limitations: Limited examination given lack of history. Incomplete visualization of the pelvis limits evaluation. VASCULATURE: Aorta: Atherosclerotic disease. No abdominal aortic aneurysm. No dissection. Celiac trunk and mesenteric arteries: No acute findings. No occlusion or significant stenosis. Renal arteries: No acute findings. No occlusion or significant stenosis. 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 Hypodensity within the right iliac limb may relate to thrombus versus intimal hyperplasia. Lung bases: Unremarkable. No mass. No consolidation. ABDOMEN: Liver: Periportal edema in the liver which is a nonspecific finding. Gallbladder and bile ducts: Unremarkable. No calcified stones. No ductal dilation. Pancreas: Atrophic appearance of the pancreas. Pancreatic parenchymal calcifications can be seen with sequela of chronic pancreatitis. No ductal dilation. Spleen: Unremarkable. No splenomegaly. Adrenals: Unremarkable. No mass. Kidneys and ureters: Unremarkable. No obstructing stones. No hydronephrosis. No solid mass. Stomach and bowel: No evidence of bowel obstruction. Right lauren- abdominal and colostomy changes. No mucosal thickening. PELVIS: Appendix: No findings to suggest acute appendicitis. Bladder: Unremarkable. No stones. No mass. Reproductive: Unremarkable as visualized. ABDOMEN and PELVIS: Intraperitoneal space: Post surgical changes within the abdomen with free air. Findings may relate to recent surgery. No gross evidence of active intraluminal hemorrhage. Consider delayed imaging of or scintigraphic imaging if there is further concern. Mild mesenteric ascites. Bones/joints: Degenerative changes in the spine. No acute fracture. No dislocation. Soft tissues: See above. Lymph nodes: Unremarkable. No enlarged lymph nodes. Tubes, lines and devices: Gastric drainage tube in situ. Other findings: Geovanna pouch. IMPRESSION: 1. Limited examination given lack of history. 2. Post surgical changes within the abdomen with free air. Findings may relate to recent surgery. 3. Aortobiiliac endograft changes. The size of the excluded aneurysm measures up to 6.7 cm. 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 Hypodensity within the right iliac limb may relate to thrombus versus intimal hyperplasia. 4. No gross evidence of active intraluminal hemorrhage. Consider delayed imaging of or scintigraphic imaging if there is further concern. 5. Periportal edema in the liver which is a nonspecific finding. Correlation with any clinical signs of congestive heart failure or hepatitis may be helpful. 6. Other incidental findings as described.
[2024-04-06] MEDS ORDERED: DEXTROSE 50% SYRINGE 50 ML IVP PRN ×2 (07:42)
[2024-04-06 07:56] LABS: Glucose,Whole Blood 358 mg/dL (70-110)
--- NOTE | 2024-04-06 08:09 | P.PN ---
Subjective Progress Note Date: 04/06/24 Patient seen and examined at bedside. Vented, sedated Objective - Vital Signs Vital signs: Vital Signs Temp 35.5 F L 04/06/24 06:56 Pulse 99 04/06/24 07:30 Resp 20 04/06/24 07:30 BP 103/52 04/06/24 06:56 Pulse Ox 99 04/06/24 07:30 FiO2 40 04/06/24 04:17 Intake & Output 04/05/24 04/06/24 04/06/24 18:59 06:59 18:59 Intake Total 3962.514 3514.413 125 Output Total 795 590 60 Balance 3167.514 2924.413 65 Weight 66.7 kg 76.3 kg Intake: IV 3700 2700 125 Dextrose 5% in Water 1, 1500 1500 125 000 ml @ 125 mls/hr IV . Q9H12M [facility] with Sodium Bicarb (1 Meq/ml) 150 ml Rx#:[id number] Magnesium Sulfate-D5w Pmx 100 1 gm In Dextrose/Water 1 100ml.bag @ 100 mls/hr IVPB ONCE ONE Rx#: [id number] Piperacillin-Tazobactam 3 100 200 .375 gm In Sodium Chloride 0.9% 100 ml @ 25 mls/hr IVPB Q8H [facility] Rx#: [id number] Sodium Chloride 0.9% 1, 2000 1000 000 ml @ 999 mls/hr IV . Q1H1M ONE Rx#:[id number] Intake, IV Titration 262.514 814.413 0 Amount Cisatracurium 200 mg In 107.921 Sodium Chloride 0.9% 180 ml @ 1 MCG/KG/MIN 4.002 mls/hr IV .Q24H [facility] Rx#: [id number] Norepinephrine 4 mg In 173.754 467.845 0 Sodium Chloride 0.9% 250 ml @ 0.03 MCG/KG/MIN 7. 258 mls/hr IV .Q24H [facility] Rx#:[id number] Vasopressin 60 unit In 45.823 Sodium Chloride 0.9% 150 ml @ 0.03 UNITS/MIN 4.59 mls/hr IV .Q24H [facility] Rx#: [id number] propofoL 1,000 mg In 88.760 192.824 Empty Bag 1 bag @ 15 MCG/ KG/MIN 5.715 mls/hr IV . [id number] [facility] Rx#:[id number] Blood Product 0 Rc As-1 Unit 0 [id number] Output: Urine 145 430 60 Stool 650 160 Other: Voiding Method Indwelling Catheter Indwelling Catheter ABP, PAP, CO, CI - Last Documented Arterial Blood Pressure 108/51 - Constitutional Constitutional Comment(s): Vented, sedated - Respiratory Details: Vented - Gastrointestinal Gastrointestinal Comment(s): Midline incision site with surgical dressing in place, ileostomy patent with between 100 to 200 cc of dark output overnight. - Labs CBC & Chem 7: 04/06/24 04:50 04/06/24 04:50 Labs: Abnormal Lab Results - Last 24 Hours (Table) 04/04/24 04/05/24 04/05/24 Range/Units 16:35 04:06 09:56 WBC (3.8-10.6) k/uL RBC (4.30-5.90) m/uL Hgb (13.0-17.5) gm/dL Hct (39.0-53.0) % RDW (11.5-15.5) % Plt Count (150-450) k/uL ABG pH 7.18 L* (7.35-7.45) ABG pO2 129 H (83-108) mmHg ABG HCO3 16 L (21-25) mmol/L ABG Total CO2 18 L (19-24) mmol/L ABG O2 Saturation 98.6 H (94-97) % Hemoglobin 9.0 L (13.0-17.5) gm/dL Sodium (137-145) mmol/L Potassium (3.5-5.1) mmol/L BUN (9-20) mg/dL Creatinine (0.66-1.25) mg/dL Glucose (74-99) mg/dL POC Glucose (mg/dL) (70-110) mg/dL Plasma Lactic Acid Jae (0.7-2.0) mmol/L Calcium (8.4-10.2) mg/dL Ionized Calcium Antoni (4.5-5.3) mg/dL Phosphorus (2.5-4.5) mg/dL AST (17-59) U/L ALT (4-49) U/L Alkaline Phosphatase (38-126) U/L Total Protein (6.3-8.2) g/dL Albumin 1.6 L (3.5-5.0) g/dL Crossmatch See Detail 04/05/24 04/05/24 04/05/24 Range/Units 11:50 11:50 16:05 WBC 11.8 H (3.8-10.6) k/uL RBC 2.62 L 2.70 L (4.30-5.90) m/uL Hgb 8.3 L 8.6 L (13.0-17.5) gm/dL Hct 24.9 L 25.6 L (39.0-53.0) % RDW 16.0 H 16.1 H (11.5-15.5) % Plt Count 73 L 78 L (150-450) k/uL ABG pH (7.35-7.45) ABG pO2 (83-108) mmHg ABG HCO3 (21-25) mmol/L ABG Total CO2 (19-24) mmol/L ABG O2 Saturation (94-97) % Hemoglobin (13.0-17.5) gm/dL Sodium (137-145) mmol/L Potassium (3.5-5.1) mmol/L BUN (9-20) mg/dL Creatinine (0.66-1.25) mg/dL Glucose (74-99) mg/dL POC Glucose (mg/dL) 222 H (70-110) mg/dL Plasma Lactic Acid Jae (0.7-2.0) mmol/L Calcium (8.4-10.2) mg/dL Ionized Calcium Antoni (4.5-5.3) mg/dL Phosphorus (2.5-4.5) mg/dL AST (17-59) U/L ALT (4-49) U/L Alkaline Phosphatase (38-126) U/L Total Protein (6.3-8.2) g/dL Albumin (3.5-5.0) g/dL Crossmatch 04/05/24 04/05/24 04/05/24 Range/Units 18:19 18:21 21:41 WBC (3.8-10.6) k/uL RBC (4.30-5.90) m/uL Hgb (13.0-17.5) gm/dL Hct (39.0-53.0) % RDW (11.5-15.5) % Plt Count (150-450) k/uL ABG pH 7.27 L (7.35-7.45) ABG pO2 (83-108) mmHg ABG HCO3 18 L (21-25) mmol/L ABG Total CO2 (19-24) mmol/L ABG O2 Saturation (94-97) % Hemoglobin 7.8 L (13.0-17.5) gm/dL Sodium (137-145) mmol/L Potassium (3.5-5.1) mmol/L BUN (9-20) mg/dL Creatinine (0.66-1.25) mg/dL Glucose (74-99) mg/dL POC Glucose (mg/dL) 248 H 329 H (70-110) mg/dL Plasma Lactic Acid Jae (0.7-2.0) mmol/L Calcium (8.4-10.2) mg/dL Ionized Calcium Antoni (4.5-5.3) mg/dL Phosphorus (2.5-4.5) mg/dL AST (17-59) U/L ALT (4-49) U/L Alkaline Phosphatase (38-126) U/L Total Protein (6.3-8.2) g/dL Albumin (3.5-5.0) g/dL Crossmatch 04/05/24 04/05/24 04/05/24 Range/Units 21:50 23:05 23:20 WBC 12.8 H (3.8-10.6) k/uL RBC 2.36 L (4.30-5.90) m/uL Hgb 7.5 L (13.0-17.5) gm/dL Hct 22.9 L (39.0-53.0) % RDW 15.8 H (11.5-15.5) % Plt Count 77 L (150-450) k/uL ABG pH (7.35-7.45) ABG pO2 (83-108) mmHg ABG HCO3 (21-25) mmol/L ABG Total CO2 (19-24) mmol/L ABG O2 Saturation (94-97) % Hemoglobin (13.0-17.5) gm/dL Sodium 134 L (137-145) mmol/L Potassium 5.2 H (3.5-5.1) mmol/L BUN 49 H (9-20) mg/dL Creatinine 2.01 H (0.66-1.25) mg/dL Glucose 299 H (74-99) mg/dL POC Glucose (mg/dL) 111 H (70-110) mg/dL Plasma Lactic Acid Jae (0.7-2.0) mmol/L Calcium 7.0 L (8.4-10.2) mg/dL Ionized Calcium Antoni (4.5-5.3) mg/dL Phosphorus (2.5-4.5) mg/dL AST (17-59) U/L ALT (4-49) U/L Alkaline Phosphatase (38-126) U/L Total Protein (6.3-8.2) g/dL Albumin (3.5-5.0) g/dL Crossmatch 04/05/24 04/05/24 04/06/24 Range/Units 23:20 23:22 02:12 WBC 13.1 H (3.8-10.6) k/uL RBC 2.33 L (4.30-5.90) m/uL Hgb 7.4 L (13.0-17.5) gm/dL Hct 22.7 L (39.0-53.0) % RDW 15.8 H (11.5-15.5) % Plt Count 71 L (150-450) k/uL ABG pH (7.35-7.45) ABG pO2 (83-108) mmHg ABG HCO3 (21-25) mmol/L ABG Total CO2 (19-24) mmol/L ABG O2 Saturation (94-97) % Hemoglobin (13.0-17.5) gm/dL Sodium (137-145) mmol/L Potassium (3.5-5.1) mmol/L BUN (9-20) mg/dL Creatinine (0.66-1.25) mg/dL Glucose (74-99) mg/dL POC Glucose (mg/dL) 373 H (70-110) mg/dL Plasma Lactic Acid Jae 7.2 H* (0.7-2.0) mmol/L Calcium (8.4-10.2) mg/dL Ionized Calcium Antoni (4.5-5.3) mg/dL Phosphorus (2.5-4.5) mg/dL AST (17-59) U/L ALT (4-49) U/L Alkaline Phosphatase (38-126) U/L Total Protein (6.3-8.2) g/dL Albumin (3.5-5.0) g/dL Crossmatch 04/06/24 04/06/24 04/06/24 Range/Units 04:40 04:50 04:50 WBC (3.8-10.6) k/uL RBC 1.94 L (4.30-5.90) m/uL Hgb 6.4 L* (13.0-17.5) gm/dL Hct 18.5 L* (39.0-53.0) % RDW 16.2 H (11.5-15.5) % Plt Count 56 L (150-450) k/uL ABG pH 7.31 L (7.35-7.45) ABG pO2 74 L (83-108) mmHg ABG HCO3 (21-25) mmol/L ABG Total CO2 (19-24) mmol/L ABG O2 Saturation (94-97) % Hemoglobin 6.4 L* (13.0-17.5) gm/dL Sodium 136 L (137-145) mmol/L Potassium (3.5-5.1) mmol/L BUN 52 H (9-20) mg/dL Creatinine 2.03 H (0.66-1.25) mg/dL Glucose 323 H (74-99) mg/dL POC Glucose (mg/dL) (70-110) mg/dL Plasma Lactic Acid Jae (0.7-2.0) mmol/L Calcium 6.6 L (8.4-10.2) mg/dL Ionized Calcium Antoni (4.5-5.3) mg/dL Phosphorus 5.3 H (2.5-4.5) mg/dL AST 2789 H (17-59) U/L ALT 2564 H (4-49) U/L Alkaline Phosphatase 26 L (38-126) U/L Total Protein 2.5 L (6.3-8.2) g/dL Albumin 1.2 L (3.5-5.0) g/dL Crossmatch 04/06/24 04/06/24 Range/Units 04:50 07:55 WBC (3.8-10.6) k/uL RBC (4.30-5.90) m/uL Hgb (13.0-17.5) gm/dL Hct (39.0-53.0) % RDW (11.5-15.5) % Plt Count (150-450) k/uL ABG pH (7.35-7.45) ABG pO2 (83-108) mmHg ABG HCO3 (21-25) mmol/L ABG Total CO2 (19-24) mmol/L ABG O2 Saturation (94-97) % Hemoglobin (13.0-17.5) gm/dL Sodium (137-145) mmol/L Potassium (3.5-5.1) mmol/L BUN (9-20) mg/dL Creatinine (0.66-1.25) mg/dL Glucose (74-99) mg/dL POC Glucose (mg/dL) 358 H (70-110) mg/dL Plasma Lactic Acid Jae (0.7-2.0) mmol/L Calcium (8.4-10.2) mg/dL Ionized Calcium Antoni 4.2 L (4.5-5.3) mg/dL Phosphorus (2.5-4.5) mg/dL AST (17-59) U/L ALT (4-49) U/L Alkaline Phosphatase (38-126) U/L Total Protein (6.3-8.2) g/dL Albumin (3.5-5.0) g/dL Crossmatch Microbiology - Last 24 Hours (Table) 04/05/24 03:59 Gram Stain - Preliminary Sputum Assessment and Plan Plan: Postoperative day #2, subtotal colectomy secondary to massive GI hemorrhage. Patient received significant resuscitation overnight as CVP was 2. Currently, C [employer] has improved to 7. With fluid resuscitation, this morning hemoglobin is noted to be 6.4. He is receiving 1 unit of packed red blood cell. Overnight with fluid resuscitation, patient was able to be weaned from pressors, however Levophed was restarted this morning at minimal dose. Output from ostomy has been minimal. CTA was performed with no intraluminal extravasation noted. Patient with ischemic findings on blood work with liver enzymes significantly elevated above 2000. Continue with resuscitation. Continue ICU management. Case discussed with ICU nurses at bedside.
[2024-04-06 08:12] LABS: INR 1.8 (<1.2); Prothrombin Time 17.9 sec (10.0-12.5)
[2024-04-06] MEDS: INSULIN ASPART (NovoLOG) 100 UNIT/ML VIAL SQ SCH ×2 (08:12→08:13)
--- NOTE | 2024-04-06 09:25 | P.PN ---
Subjective Progress Note Date: 04/06/24 73 year old M with PMH of COPD, CAD, PVD, L iliac stent presented to the ED after a syncopal episode at home after an episode of diarrhea. In the ED he underwent extensive evaluation. BP 83/60, HR 86, T 97.4F, RR 18, 80% on RA?. CBC, Coag panel, CMP significant for RBC 3.62, Hg 12.1, Hct 35.5, Na 130, K 5.7, BUN 24, glu 145, alb 3.4. Mag 1.5. Troponin < 0.012. UA negative. CXR chronic changes. CT head and C-spine no acute process. EKG sinus rhythm with first degree AV block. Initially plans for discharge home however patient had a large maroon colored bowel movement and a Hg drop to 9.4 while in the ED. 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 ER provider discussed the case with GI and arrangements were made for admission to ICU for C-scope tomorrow. Transfused 4 units PRBC. GI evaluated the patient and recommended surgery consult. 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 Post operatively he had significant output from his ileostomy and hypotension requiring Levophed and multiple NS boluses. Underwent EGD which showed old blood in the stomach and duodenum, gastritis and duodenitis, fresh blood in the third portion of the duodenum with no mucosal lesions. Case discussed with Dr. Rojas recommending CTA Abd to rule out aortoenteric fistula. Case discussed with Dr. Ford. 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 04/05 Patient was seen and examined. Intubated sedated with Propofol at 50 mcg/kg/min + Nimbex at 2 mcg/kg/min + Fentanyl at 0.25 mcg/kg/min. POD 1 subtotal colectomy with end ileostomy. Currently on Levophed at 0.08 mcg/kg/min. Antibiotics include Zosyn 3.375g IV TID. Nutrition via TPN. Not much output from the ileostomy today per RN. CBC and CMP significant for RBC 1.94, Hg 6.4, Hct 18.5, Plt 56, Na 136, BUN 52, Cr 2.03, glu 323, Ca 6.6, alb 1.2, AST 2789, ALT 2564. Ionized Ca 4.2. Phos 5.3. Mag 1.8. ABG pH 7.31, pCO2 45, pO2 74 FiO2 40. INR 1.8, PT 17.9. Fibrinogen 217. General: Intubated Derm: Warm, dry Head: Atraumatic, normocephalic, symmetric Eyes: no lid lag, anicteric sclera Mouth: No lip lesion, mucus membranes moist Cardiovascular: S1 S2 tachy. No murmurs, rubs, gallops Lungs: Coarse breath sounds bilaterally, no accessory muscle use Abdominal: Soft, non distended, surgical scar intact dressing c/d/i, ileostomy without much output Ext: No gross muscle atrophy, no edema, no contractures Psych: Intubated Based on my assessment of this patient, this patient meets a high complexity level of care. Lower GI bleed status post exploratory laparotomy and subtotal colectomy with end ileostomy on 04/05: As seen on CT AP. Protonix 40 mg IV BID. 4 units PRBC transfused 04/04. 1 unit PRBC ordered this morning. Transfuse if Hg < 7. Telemetry monitoring. TPN for nutrition. Admit to ICU. Surgery on board. Hypovolemic versus septic shock: Maintain Levophed titrate to MAP > 65. Zosyn 3.375g IV TID (D2). D5W with NaHCO3 at 150 cc/hr. Obtain Echo. BCx, Sputum Cx pending. Thrombocytopenia + Supratherapeutic INR: Plt 56. INR 1.8, PT 17.9. Fibrinogen 217. Concerns for comsumptive coagulopathy. Obtain D-Dimer, PTT, LDH. Hematology consulted. Acute kidney injury: Hypovolemic. CT with no obstruction. Pressors and IV hydration as above. Shock Liver: Monitor LFTs. Pressors and IV hydration as above. Lactic acidosis likely due to above. Acute hypoxic respiratory failure COPD exacerbation: DuoNeb QID scheduled and PRN for SOB/wheezing. Solumedrol 40 mg IV TID. Symbicort 2 INH BID. Performist 20 mcg INH BID. Pulmonary on board. Hyperglycemia: From acute stressor and steroid induced. A1c 5.6. Add Novolog 8 units TID. ISS Q6H. Accuchecks Q6H. Hyponatremia: Hypovolemic. Improved. IV hydration as above. CAD, PVD, L iliac stent: Hold ASA Resolved: HyperK, HypoMag CODE STATUS: FULL CODE DVT Prophylaxis: SCD GI Prophylaxis: Protonix IV Designated medical POA if patient is not able to make medical decisions for themselves: I have reviewed the following microsoft dynamics consultant notes: Surgery, Pulmonary and GI note. EGD report. I have reviewed the results of the following tests: CTA Abd, CBC, CMP, Phos, Mag, Ionized Ca, ABG, Coag panel, Fibrinogen. I have ordered the following tests: D-Dimer, PTT, LDH, Echo I have discussed the care of this patient with the following independent historian: RN. I have independently interpreted the following test below: I have discussed the management of this patient with the following physician: Dr. Ford and Dr. Roajs 04/05. Dr. Pollock and Vivian GEOLOGICAL DRAFTER 04/06. Yamileth GEOLOGICAL DRAFTER 04/06. Objective - Vital Signs Vital signs: Vital Signs Temp 35.5 F L 04/06/24 06:56 Pulse 99 04/06/24 07:30 Resp 20 04/06/24 07:30 BP 103/52 04/06/24 06:56 Pulse Ox 99 04/06/24 07:30 FiO2 40 04/06/24 08:44 Intake & Output 04/05/24 04/06/24 04/06/24 18:59 06:59 18:59 Intake Total 3962.514 3514.413 250 Output Total 795 590 85 Balance 3167.514 2924.413 165 Weight 66.7 kg 76.3 kg Intake: IV 3700 2700 250 Dextrose 5% in Water 1, 1500 1500 250 000 ml @ 125 mls/hr IV . Q9H12M BOBBY with Sodium Bicarb (1 Meq/ml) 150 ml Rx#:[id number] Magnesium Sulfate-D5w Pmx 100 1 gm In Dextrose/Water 1 100ml.bag @ 100 mls/hr IVPB ONCE ONE Rx#: [id number] Piperacillin-Tazobactam 3 100 200 .375 gm In Sodium Chloride 0.9% 100 ml @ 25 mls/hr IVPB Q8H BOBBY Rx#: [id number] Sodium Chloride 0.9% 1, 2000 1000 000 ml @ 999 mls/hr IV . Q1H1M ONE Rx#:[id number] Intake, IV Titration 262.514 814.413 0 Amount Cisatracurium 200 mg In 107.921 Sodium Chloride 0.9% 180 ml @ 1 MCG/KG/MIN 4.002 mls/hr IV .Q24H BOBBY Rx#: [id number] Norepinephrine 4 mg In 173.754 467.845 0 Sodium Chloride 0.9% 250 ml @ 0.03 MCG/KG/MIN 7. 258 mls/hr IV .Q24H BOBBY Rx#:[id number] Vasopressin 60 unit In 45.823 Sodium Chloride 0.9% 150 ml @ 0.03 UNITS/MIN 4.59 mls/hr IV .Q24H BOBBY Rx#: [id number] propofoL 1,000 mg In 88.760 192.824 Empty Bag 1 bag @ 15 MCG/ KG/MIN 5.715 mls/hr IV . [id number] [facility] Rx#:[id number] Blood Product 0 Rc As-1 Unit 0 [id number] Output: Urine 145 430 85 Stool 650 160 Other: Voiding Method Indwelling Catheter Indwelling Catheter ABP, PAP, CO, CI - Last Documented Arterial Blood Pressure 108/51 - Labs CBC & Chem 7: 04/06/24 04:50 04/06/24 04:50 Labs: Abnormal Lab Results - Last 24 Hours (Table) 04/04/24 04/05/24 04/05/24 Range/Units 16:35 04:06 09:56 WBC (3.8-10.6) k/uL RBC (4.30-5.90) m/uL Hgb (13.0-17.5) gm/dL Hct (39.0-53.0) % RDW (11.5-15.5) % Plt Count (150-450) k/uL PT (10.0-12.5) sec INR (<1.2) ABG pH 7.18 L* (7.35-7.45) ABG pO2 129 H (83-108) mmHg ABG HCO3 16 L (21-25) mmol/L ABG Total CO2 18 L (19-24) mmol/L ABG O2 Saturation 98.6 H (94-97) % Hemoglobin 9.0 L (13.0-17.5) gm/dL Sodium (137-145) mmol/L Potassium (3.5-5.1) mmol/L BUN (9-20) mg/dL Creatinine (0.66-1.25) mg/dL Glucose (74-99) mg/dL POC Glucose (mg/dL) (70-110) mg/dL Plasma Lactic Acid Jae (0.7-2.0) mmol/L Calcium (8.4-10.2) mg/dL Ionized Calcium Antoni (4.5-5.3) mg/dL Phosphorus (2.5-4.5) mg/dL AST (17-59) U/L ALT (4-49) U/L Alkaline Phosphatase (38-126) U/L Total Protein (6.3-8.2) g/dL Albumin 1.6 L (3.5-5.0) g/dL Crossmatch See Detail 04/05/24 04/05/24 04/05/24 Range/Units 11:50 11:50 16:05 WBC 11.8 H (3.8-10.6) k/uL RBC 2.62 L 2.70 L (4.30-5.90) m/uL Hgb 8.3 L 8.6 L (13.0-17.5) gm/dL Hct 24.9 L 25.6 L (39.0-53.0) % RDW 16.0 H 16.1 H (11.5-15.5) % Plt Count 73 L 78 L (150-450) k/uL PT (10.0-12.5) sec INR (<1.2) ABG pH (7.35-7.45) ABG pO2 (83-108) mmHg ABG HCO3 (21-25) mmol/L ABG Total CO2 (19-24) mmol/L ABG O2 Saturation (94-97) % Hemoglobin (13.0-17.5) gm/dL Sodium (137-145) mmol/L Potassium (3.5-5.1) mmol/L BUN (9-20) mg/dL Creatinine (0.66-1.25) mg/dL Glucose (74-99) mg/dL POC Glucose (mg/dL) 222 H (70-110) mg/dL Plasma Lactic Acid Jae (0.7-2.0) mmol/L Calcium (8.4-10.2) mg/dL Ionized Calcium Antoni (4.5-5.3) mg/dL Phosphorus (2.5-4.5) mg/dL AST (17-59) U/L ALT (4-49) U/L Alkaline Phosphatase (38-126) U/L Total Protein (6.3-8.2) g/dL Albumin (3.5-5.0) g/dL Crossmatch 04/05/24 04/05/24 04/05/24 Range/Units 18:19 18:21 21:41 WBC (3.8-10.6) k/uL RBC (4.30-5.90) m/uL Hgb (13.0-17.5) gm/dL Hct (39.0-53.0) % RDW (11.5-15.5) % Plt Count (150-450) k/uL PT (10.0-12.5) sec INR (<1.2) ABG pH 7.27 L (7.35-7.45) ABG pO2 (83-108) mmHg ABG HCO3 18 L (21-25) mmol/L ABG Total CO2 (19-24) mmol/L ABG O2 Saturation (94-97) % Hemoglobin 7.8 L (13.0-17.5) gm/dL Sodium (137-145) mmol/L Potassium (3.5-5.1) mmol/L BUN (9-20) mg/dL Creatinine (0.66-1.25) mg/dL Glucose (74-99) mg/dL POC Glucose (mg/dL) 248 H 329 H (70-110) mg/dL Plasma Lactic Acid Jae (0.7-2.0) mmol/L Calcium (8.4-10.2) mg/dL Ionized Calcium Antoni (4.5-5.3) mg/dL Phosphorus (2.5-4.5) mg/dL AST (17-59) U/L ALT (4-49) U/L Alkaline Phosphatase (38-126) U/L Total Protein (6.3-8.2) g/dL Albumin (3.5-5.0) g/dL Crossmatch 04/05/24 04/05/24 04/05/24 Range/Units 21:50 23:05 23:20 WBC 12.8 H (3.8-10.6) k/uL RBC 2.36 L (4.30-5.90) m/uL Hgb 7.5 L (13.0-17.5) gm/dL Hct 22.9 L (39.0-53.0) % RDW 15.8 H (11.5-15.5) % Plt Count 77 L (150-450) k/uL PT (10.0-12.5) sec INR (<1.2) ABG pH (7.35-7.45) ABG pO2 (83-108) mmHg ABG HCO3 (21-25) mmol/L ABG Total CO2 (19-24) mmol/L ABG O2 Saturation (94-97) % Hemoglobin (13.0-17.5) gm/dL Sodium 134 L (137-145) mmol/L Potassium 5.2 H (3.5-5.1) mmol/L BUN 49 H (9-20) mg/dL Creatinine 2.01 H (0.66-1.25) mg/dL Glucose 299 H (74-99) mg/dL POC Glucose (mg/dL) 111 H (70-110) mg/dL Plasma Lactic Acid Jae (0.7-2.0) mmol/L Calcium 7.0 L (8.4-10.2) mg/dL Ionized Calcium Antoni (4.5-5.3) mg/dL Phosphorus (2.5-4.5) mg/dL AST (17-59) U/L ALT (4-49) U/L Alkaline Phosphatase (38-126) U/L Total Protein (6.3-8.2) g/dL Albumin (3.5-5.0) g/dL Crossmatch 04/05/24 04/05/24 04/06/24 Range/Units 23:20 23:22 02:12 WBC 13.1 H (3.8-10.6) k/uL RBC 2.33 L (4.30-5.90) m/uL Hgb 7.4 L (13.0-17.5) gm/dL Hct 22.7 L (39.0-53.0) % RDW 15.8 H (11.5-15.5) % Plt Count 71 L (150-450) k/uL PT (10.0-12.5) sec INR (<1.2) ABG pH (7.35-7.45) ABG pO2 (83-108) mmHg ABG HCO3 (21-25) mmol/L ABG Total CO2 (19-24) mmol/L ABG O2 Saturation (94-97) % Hemoglobin (13.0-17.5) gm/dL Sodium (137-145) mmol/L Potassium (3.5-5.1) mmol/L BUN (9-20) mg/dL Creatinine (0.66-1.25) mg/dL Glucose (74-99) mg/dL POC Glucose (mg/dL) 373 H (70-110) mg/dL Plasma Lactic Acid Jae 7.2 H* (0.7-2.0) mmol/L Calcium (8.4-10.2) mg/dL Ionized Calcium Antoni (4.5-5.3) mg/dL Phosphorus (2.5-4.5) mg/dL AST (17-59) U/L ALT (4-49) U/L Alkaline Phosphatase (38-126) U/L Total Protein (6.3-8.2) g/dL Albumin (3.5-5.0) g/dL Crossmatch 04/06/24 04/06/24 04/06/24 Range/Units 04:40 04:50 04:50 WBC (3.8-10.6) k/uL RBC 1.94 L (4.30-5.90) m/uL Hgb 6.4 L* (13.0-17.5) gm/dL Hct 18.5 L* (39.0-53.0) % RDW 16.2 H (11.5-15.5) % Plt Count 56 L (150-450) k/uL PT (10.0-12.5) sec INR (<1.2) ABG pH 7.31 L (7.35-7.45) ABG pO2 74 L (83-108) mmHg ABG HCO3 (21-25) mmol/L ABG Total CO2 (19-24) mmol/L ABG O2 Saturation (94-97) % Hemoglobin 6.4 L* (13.0-17.5) gm/dL Sodium 136 L (137-145) mmol/L Potassium (3.5-5.1) mmol/L BUN 52 H (9-20) mg/dL Creatinine 2.03 H (0.66-1.25) mg/dL Glucose 323 H (74-99) mg/dL POC Glucose (mg/dL) (70-110) mg/dL Plasma Lactic Acid Jae (0.7-2.0) mmol/L Calcium 6.6 L (8.4-10.2) mg/dL Ionized Calcium Antoni (4.5-5.3) mg/dL Phosphorus 5.3 H (2.5-4.5) mg/dL AST 2789 H (17-59) U/L ALT 2564 H (4-49) U/L Alkaline Phosphatase 26 L (38-126) U/L Total Protein 2.5 L (6.3-8.2) g/dL Albumin 1.2 L (3.5-5.0) g/dL Crossmatch 04/06/24 04/06/24 04/06/24 Range/Units 04:50 07:50 07:50 WBC (3.8-10.6) k/uL RBC (4.30-5.90) m/uL Hgb (13.0-17.5) gm/dL Hct (39.0-53.0) % RDW (11.5-15.5) % Plt Count (150-450) k/uL PT 17.9 H (10.0-12.5) sec INR 1.8 H (<1.2) ABG pH (7.35-7.45) ABG pO2 (83-108) mmHg ABG HCO3 (21-25) mmol/L ABG Total CO2 (19-24) mmol/L ABG O2 Saturation (94-97) % Hemoglobin (13.0-17.5) gm/dL Sodium (137-145) mmol/L Potassium (3.5-5.1) mmol/L BUN (9-20) mg/dL Creatinine (0.66-1.25) mg/dL Glucose (74-99) mg/dL POC Glucose (mg/dL) (70-110) mg/dL Plasma Lactic Acid Jae 4.1 H* (0.7-2.0) mmol/L Calcium (8.4-10.2) mg/dL Ionized Calcium Antoni 4.2 L (4.5-5.3) mg/dL Phosphorus (2.5-4.5) mg/dL AST (17-59) U/L ALT (4-49) U/L Alkaline Phosphatase (38-126) U/L Total Protein (6.3-8.2) g/dL Albumin (3.5-5.0) g/dL Crossmatch 04/06/24 Range/Units 07:55 WBC (3.8-10.6) k/uL RBC (4.30-5.90) m/uL Hgb (13.0-17.5) gm/dL Hct (39.0-53.0) % RDW (11.5-15.5) % Plt Count (150-450) k/uL PT (10.0-12.5) sec INR (<1.2) ABG pH (7.35-7.45) ABG pO2 (83-108) mmHg ABG HCO3 (21-25) mmol/L ABG Total CO2 (19-24) mmol/L ABG O2 Saturation (94-97) % Hemoglobin (13.0-17.5) gm/dL Sodium (137-145) mmol/L Potassium (3.5-5.1) mmol/L BUN (9-20) mg/dL Creatinine (0.66-1.25) mg/dL Glucose (74-99) mg/dL POC Glucose (mg/dL) 358 H (70-110) mg/dL Plasma Lactic Acid Jae (0.7-2.0) mmol/L Calcium (8.4-10.2) mg/dL Ionized Calcium Antoni (4.5-5.3) mg/dL Phosphorus (2.5-4.5) mg/dL AST (17-59) U/L ALT (4-49) U/L Alkaline Phosphatase (38-126) U/L Total Protein (6.3-8.2) g/dL Albumin (3.5-5.0) g/dL Crossmatch Microbiology - Last 24 Hours (Table) 04/05/24 03:59 Gram Stain - Preliminary Sputum
[2024-04-06 09:26] LABS: Partial Thromboplastin Time 43.7 sec (22.0-30.0)
[2024-04-06] MEDS: CALCIUM GLUCONATE IN NACL 1 GM in SALINE 1 100ML.BAG IVPB ONE (10:30)
--- NOTE | 2024-04-06 11:06 | CA ---
Transthoracic Echo Report Name: David Vasques Age: 73 Gender: M : 1950 Exam Date: 04/06/2024 08:24 Exam Location: [place] [facility] Ht (in): 68 Wt (lb): 168 Ordering Physician: Jeb Lui MD Attending/Referring Phys: Contract Accountant Celina Gonsales RDCS Procedure CPT: Indications: shock Cardiac Hx: Technical Quality: Fair Contrast 1: Total Dose (mL): Contrast 2: Total Dose (mL): MEASUREMENTS (Male / Female) Normal Values 2D ECHO LV Diastolic Diameter PLAX 3.5 cm 4.2 - 5.9 / 3.9 - 5.3 cm LV Systolic Diameter PLAX 2.5 cm IVS Diastolic Thickness 1.1 cm 0.6 - 1.0 / 0.6 - 0.9 cm LVPW Diastolic Thickness 1.5 cm 0.6 - 1.0 / 0.6 - 0.9 cm LV Relative Wall Thickness 0.7 LVOT Diameter 2.2 cm DOPPLER AV Peak Velocity 115.7 cm/s AV Peak Gradient 5.4 mmHg AV Mean Velocity 81.3 cm/s AV Mean Gradient 2.9 mmHg AV Velocity Time Integral 13.9 cm LVOT Peak Velocity 104.3 cm/s LVOT Peak Gradient 4.4 mmHg LVOT Velocity Time Integral 13.1 cm LVOT Stroke Volume 50.1 cm??? LVOT Stroke Volume Index 26.4 ml/m??? LVOT Cardiac Index 2525.6 cm???/min???m??? AV Area Cont Eq vti 3.6 cm??? AV Area Cont Eq pk 3.4 cm??? MV Area PHT 6.8 cm??? Mitral E Point Velocity 31.1 cm/s Mitral A Point Velocity 52.2 cm/s Mitral E to A Ratio 0.6 MV Deceleration Time 110.9 ms TR Peak Velocity 292.6 cm/s TR Peak Gradient 34.3 mmHg PV Peak Velocity 99.3 cm/s PV Peak Gradient 3.9 mmHg FINDINGS Left Ventricle Left ventricular ejection fraction is estimated at 55-60 %. Left ventricular cavity size normal. Left ventricular wall thickness normal. No obvious regional wall motion abnormalities. Right Ventricle Normal right ventricular size with reduced function. Right Atrium Right atrium not well visualized. Left Atrium Left atrium not well visualized. Mitral Valve Structurally normal mitral valve. No mitral stenosis. Trace mitral regurgitation. Aortic Valve Aortic valve not well visualized. No aortic stenosis. [id number] aortic regurgitation. May be underestimate due to limited imaging window. Tricuspid Valve Structurally normal tricuspid valve. No tricuspid stenosis. Moderate tricuspid regurgitation. Pulmonic Valve Pulmonic valve not well visualized. No pulmonic stenosis. Mild pulmonic regurgitation. Pericardium moderate anterior pericardial effusion. Aorta Severe aortic dilatation at the level of the sinuses of valsalva (root). Unable to exclude aortic dissection. (Clip 58). CONCLUSIONS Normal LV function Moderate pericardial effusion Mild to moderate aortic regurgitation Aneurysmal dilation of the aortic root not particularly well visualized consider computed tomography scan of the chest to rule out dissection Previewed by: Dr. Jp Rojas MD (Electronically Signed) Final Date: 06 April 2024 11:03
[2024-04-06 11:10] LABS: HCT 25.1 % (39.0-53.0); Hypochromasia Slight; MCH 31.4 pg (25.0-35.0); Mean Platelet Volume 9.8; RBC 2.64 m/uL (4.30-5.90); RDW 15.7 % (11.5-15.5); WBC 11.1 k/uL (3.8-10.6)
[2024-04-06 11:28] LABS: HGB 8.3 gm/dL (13.0-17.5)
[2024-04-06 11:29] LABS: Platelet Count 67 k/uL (150-450)
--- NOTE | 2024-04-06 11:33 | P.PN ---
Subjective Progress Note Date: 04/06/24 Principal diagnosis: Patient is a 73-year-old pleasant white male came to the emergency room this afternoon after having 2 episodes of bloody bowel movements at home. He complained of some vague lower abdominal discomfort but no nausea vomiting. Came to the emergency room this afternoon and initially was noted to have a hemoglobin of 12.1 g/dL. However he was noted to be somewhat hypotensive and was resuscitated with fluids. While in the ER he had several large maroon-col ored stools with large clots and continues remain hypertensive. He received 2 units of PRBC transfusion prior to which his hemoglobin dropped to 9.5 g/dL. He was transferred to the intensive care unit. Since being in the ICU he had another 2 episodes of large bloody bowel movements with dark clots. He denies any abdominal pain at this time. No nausea vomiting. He received 2 units of PRBC transfusion and repeat CBC is pending at this time. He denies being on any any anticoagulation. In the ER he did have CT abdomen and pelvis/angiogram performed which revealed active extravasation of the contrast into the right colon and transverse colon suggestive of active GI bleed. His last colonoscopy done in November of this year revealed 1 cm cecal polyp and a 5 mm transverse colon polyp that was removed. 04/05/2024 Patient seen and examined today as a follow-up. He remains in the ICU. Yester day he he underwent exploratory laparotomy with subtotal colectomy with end ileostomy with general surgery. He remains sedated and intubated. He is on pressors, having some bloody output from ostomy. No rectal bleeding. He was transfused for total of 4 units yesterday. Repeat hemoglobin this morning is 8.7. Patient is a 73-year-old pleasant white male came to the emergency room this afternoon after having 2 episodes of bloody bowel movements at home. He complained of some vague lower abdominal discomfort but no nausea vomiting. Came to the emergency room this afternoon and initially was noted to have a hemoglobin of 12.1 g/dL. However he was noted to be somewhat hypotensive and was resuscitated with fluids. While in the ER he had several large maroon- colored stools with large clots and continues remain hypertensive. He received 2 units of PRBC transfusion prior to which his hemoglobin dropped to 9.5 g/dL. He was transferred to the intensive care unit. Since being in the ICU he had another 2 episodes of large bloody bowel movements with dark clots. He denies any abdominal pain at this time. No nausea vomiting. He received 2 units of PRBC transfusion and repeat CBC is pending at this time. He denies being on any any anticoagulation. In the ER he did have CT abdomen and pelvis/angiogram performed which revealed active extravasation of the contrast into the right colon and transverse colon suggestive of active GI bleed. His last colonoscopy done in November of this year revealed 1 cm cecal polyp and a 5 mm transverse colon polyp that was removed. 04/05/2024 Patient seen and examined today as a follow-up. He remains in the ICU. Yesterday he he underwent exploratory laparotomy with subtotal colectomy with end ileostomy with general surgery. He remains sedated and intubated. He is on pressors, having some bloody output from ostomy. No rectal bleeding. He was transfused for total of 4 units yesterday. Repeat hemoglobin this morning is 8.7, platelets 77,000. Patient continued to have further bleeding out of the ileostomy for total of 650 cc today. 04/06/2024 Patient seen and examined in the ICU remains intubated and sedated. Had significant resuscitative measures through the night on pressors, bicarb and IV fluids. Yesterday he underwent upper endoscopy with old blood noted in the stomach and duodenum, gastritis and duodenitis with fresh dilated blood seen in the third portion of the duodenum but no obvious mucosal lesion or ulcers identified. Overnight bleeding has actually improved there wa about 100 cc dark blood in ileostomy bag and reportedly 200 out of OG tube. Hemoglobin this morning was 6.4. Was receiving current fifth unit of blood. Significantly elevated AST and ALT in the . CTA abdomen pelvis with no gross evidence of active intraluminal hemorrhage. Objective - Vital Signs Vital signs: Vital Signs Temp 35.5 F L 04/06/24 06:56 Pulse 99 04/06/24 07:30 Resp 20 04/06/24 07:30 BP 103/52 04/06/24 06:56 Pulse Ox 99 04/06/24 07:30 FiO2 40 04/06/24 04:17 Intake & Output 04/05/24 04/06/24 04/06/24 18:59 06:59 18:59 Intake Total 3962.514 3514.413 250 Output Total 795 590 85 Balance 3167.514 2924.413 165 Weight 66.7 kg 76.3 kg Intake: IV 3700 2700 250 Dextrose 5% in Water 1, 1500 1500 250 000 ml @ 125 mls/hr IV . Q9H12M BOBBY with Sodium Bicarb (1 Meq/ml) 150 ml Rx#:[id number] Magnesium Sulfate-D5w Pmx 100 1 gm In Dextrose/Water 1 100ml.bag @ 100 mls/hr IVPB ONCE ONE Rx#: [id number] Piperacillin-Tazobactam 3 100 200 .375 gm In Sodium Chloride 0.9% 100 ml @ 25 mls/hr IVPB Q8H [facility] Rx#: [id number] Sodium Chloride 0.9% 1, 2000 1000 000 ml @ 999 mls/hr IV . Q1H1M ONE Rx#:[id number] Intake, IV Titration 262.514 814.413 0 Amount Cisatracurium 200 mg In 107.921 Sodium Chloride 0.9% 180 ml @ 1 MCG/KG/MIN 4.002 mls/hr IV .Q24H [facility] Rx#: [id number] Norepinephrine 4 mg In 173.754 467.845 0 Sodium Chloride 0.9% 250 ml @ 0.03 MCG/KG/MIN 7. 258 mls/hr IV .Q24H [facility] Rx#:[id number] Vasopressin 60 unit In 45.823 Sodium Chloride 0.9% 150 ml @ 0.03 UNITS/MIN 4.59 mls/hr IV .Q24H [facility] Rx#: [id number] propofoL 1,000 mg In 88.760 192.824 Empty Bag 1 bag @ 15 MCG/ KG/MIN 5.715 mls/hr IV . [id number] [facility] Rx#:[id number] Blood Product 0 Rc As-1 Unit 0 [id number] Output: Urine 145 430 85 Stool 650 160 Other: Voiding Method Indwelling Catheter Indwelling Catheter ABP, PAP, CO, CI - Last Documented Arterial Blood Pressure 108/51 - Exam General appearance: The patient is dated and intubated. HET: Head is normocephalic and atraumatic. Neck: Supple without lymphadenopathy. Abdomen: Soft, nondistended, right ileostomy with small amount of dark bloody output. Extremities: Normal skin color and turgor. No pedal edema Skin: No rashes, no jaundice Neurological: Sedated and intubated. - Labs CBC & Chem 7: 04/06/24 04:50 04/06/24 04:50 Labs: Abnormal Lab Results - Last 24 Hours (Table) 04/04/24 04/05/24 04/05/24 Range/Units 16:35 04:06 09:56 WBC (3.8-10.6) k/uL RBC (4.30-5.90) m/uL Hgb (13.0-17.5) gm/dL Hct (39.0-53.0) % RDW (11.5-15.5) % Plt Count (150-450) k/uL PT (10.0-12.5) sec INR (<1.2) ABG pH 7.18 L* (7.35-7.45) ABG pO2 129 H (83-108) mmHg ABG HCO3 16 L (21-25) mmol/L ABG Total CO2 18 L (19-24) mmol/L ABG O2 Saturation 98.6 H (94-97) % Hemoglobin 9.0 L (13.0-17.5) gm/dL Sodium (137-145) mmol/L Potassium (3.5-5.1) mmol/L BUN (9-20) mg/dL Creatinine (0.66-1.25) mg/dL Glucose (74-99) mg/dL POC Glucose (mg/dL) (70-110) mg/dL Plasma Lactic Acid Jae (0.7-2.0) mmol/L Calcium (8.4-10.2) mg/dL Ionized Calcium Antoni (4.5-5.3) mg/dL Phosphorus (2.5-4.5) mg/dL AST (17-59) U/L ALT (4-49) U/L Alkaline Phosphatase (38-126) U/L Total Protein (6.3-8.2) g/dL Albumin 1.6 L (3.5-5.0) g/dL Crossmatch See Detail 04/05/24 04/05/24 04/05/24 Range/Units 11:50 11:50 16:05 WBC 11.8 H (3.8-10.6) k/uL RBC 2.62 L 2.70 L (4.30-5.90) m/uL Hgb 8.3 L 8.6 L (13.0-17.5) gm/dL Hct 24.9 L 25.6 L (39.0-53.0) % RDW 16.0 H 16.1 H (11.5-15.5) % Plt Count 73 L 78 L (150-450) k/uL PT (10.0-12.5) sec INR (<1.2) ABG pH (7.35-7.45) ABG pO2 (83-108) mmHg ABG HCO3 (21-25) mmol/L ABG Total CO2 (19-24) mmol/L ABG O2 Saturation (94-97) % Hemoglobin (13.0-17.5) gm/dL Sodium (137-145) mmol/L Potassium (3.5-5.1) mmol/L BUN (9-20) mg/dL Creatinine (0.66-1.25) mg/dL Glucose (74-99) mg/dL POC Glucose (mg/dL) 222 H (70-110) mg/dL Plasma Lactic Acid Jae (0.7-2.0) mmol/L Calcium (8.4-10.2) mg/dL Ionized Calcium Antoni (4.5-5.3) mg/dL Phosphorus (2.5-4.5) mg/dL AST (17-59) U/L ALT (4-49) U/L Alkaline Phosphatase (38-126) U/L Total Protein (6.3-8.2) g/dL Albumin (3.5-5.0) g/dL Crossmatch 04/05/24 04/05/24 04/05/24 Range/Units 18:19 18:21 21:41 WBC (3.8-10.6) k/uL RBC (4.30-5.90) m/uL Hgb (13.0-17.5) gm/dL Hct (39.0-53.0) % RDW (11.5-15.5) % Plt Count (150-450) k/uL PT (10.0-12.5) sec INR (<1.2) ABG pH 7.27 L (7.35-7.45) ABG pO2 (83-108) mmHg ABG HCO3 18 L (21-25) mmol/L ABG Total CO2 (19-24) mmol/L ABG O2 Saturation (94-97) % Hemoglobin 7.8 L (13.0-17.5) gm/dL Sodium (137-145) mmol/L Potassium (3.5-5.1) mmol/L BUN (9-20) mg/dL Creatinine (0.66-1.25) mg/dL Glucose (74-99) mg/dL POC Glucose (mg/dL) 248 H 329 H (70-110) mg/dL Plasma Lactic Acid Jae (0.7-2.0) mmol/L Calcium (8.4-10.2) mg/dL Ionized Calcium Antoni (4.5-5.3) mg/dL Phosphorus (2.5-4.5) mg/dL AST (17-59) U/L ALT (4-49) U/L Alkaline Phosphatase (38-126) U/L Total Protein (6.3-8.2) g/dL Albumin (3.5-5.0) g/dL Crossmatch 04/05/24 04/05/24 04/05/24 Range/Units 21:50 23:05 23:20 WBC 12.8 H (3.8-10.6) k/uL RBC 2.36 L (4.30-5.90) m/uL Hgb 7.5 L (13.0-17.5) gm/dL Hct 22.9 L (39.0-53.0) % RDW 15.8 H (11.5-15.5) % Plt Count 77 L (150-450) k/uL PT (10.0-12.5) sec INR (<1.2) ABG pH (7.35-7.45) ABG pO2 (83-108) mmHg ABG HCO3 (21-25) mmol/L ABG Total CO2 (19-24) mmol/L ABG O2 Saturation (94-97) % Hemoglobin (13.0-17.5) gm/dL Sodium 134 L (137-145) mmol/L Potassium 5.2 H (3.5-5.1) mmol/L BUN 49 H (9-20) mg/dL Creatinine 2.01 H (0.66-1.25) mg/dL Glucose 299 H (74-99) mg/dL POC Glucose (mg/dL) 111 H (70-110) mg/dL Plasma Lactic Acid Jae (0.7-2.0) mmol/L Calcium 7.0 L (8.4-10.2) mg/dL Ionized Calcium Antoni (4.5-5.3) mg/dL Phosphorus (2.5-4.5) mg/dL AST (17-59) U/L ALT (4-49) U/L Alkaline Phosphatase (38-126) U/L Total Protein (6.3-8.2) g/dL Albumin (3.5-5.0) g/dL Crossmatch 04/05/24 04/05/24 04/06/24 Range/Units 23:20 23:22 02:12 WBC 13.1 H (3.8-10.6) k/uL RBC 2.33 L (4.30-5.90) m/uL Hgb 7.4 L (13.0-17.5) gm/dL Hct 22.7 L (39.0-53.0) % RDW 15.8 H (11.5-15.5) % Plt Count 71 L (150-450) k/uL PT (10.0-12.5) sec INR (<1.2) ABG pH (7.35-7.45) ABG pO2 (83-108) mmHg ABG HCO3 (21-25) mmol/L ABG Total CO2 (19-24) mmol/L ABG O2 Saturation (94-97) % Hemoglobin (13.0-17.5) gm/dL Sodium (137-145) mmol/L Potassium (3.5-5.1) mmol/L BUN (9-20) mg/dL Creatinine (0.66-1.25) mg/dL Glucose (74-99) mg/dL POC Glucose (mg/dL) 373 H (70-110) mg/dL Plasma Lactic Acid Jae 7.2 H* (0.7-2.0) mmol/L Calcium (8.4-10.2) mg/dL Ionized Calcium Antoni (4.5-5.3) mg/dL Phosphorus (2.5-4.5) mg/dL AST (17-59) U/L ALT (4-49) U/L Alkaline Phosphatase (38-126) U/L Total Protein (6.3-8.2) g/dL Albumin (3.5-5.0) g/dL Crossmatch 04/06/24 04/06/24 04/06/24 Range/Units 04:40 04:50 04:50 WBC (3.8-10.6) k/uL RBC 1.94 L (4.30-5.90) m/uL Hgb 6.4 L* (13.0-17.5) gm/dL Hct 18.5 L* (39.0-53.0) % RDW 16.2 H (11.5-15.5) % Plt Count 56 L (150-450) k/uL PT (10.0-12.5) sec INR (<1.2) ABG pH 7.31 L (7.35-7.45) ABG pO2 74 L (83-108) mmHg ABG HCO3 (21-25) mmol/L ABG Total CO2 (19-24) mmol/L ABG O2 Saturation (94-97) % Hemoglobin 6.4 L* (13.0-17.5) gm/dL Sodium 136 L (137-145) mmol/L Potassium (3.5-5.1) mmol/L BUN 52 H (9-20) mg/dL Creatinine 2.03 H (0.66-1.25) mg/dL Glucose 323 H (74-99) mg/dL POC Glucose (mg/dL) (70-110) mg/dL Plasma Lactic Acid Jae (0.7-2.0) mmol/L Calcium 6.6 L (8.4-10.2) mg/dL Ionized Calcium Antoni (4.5-5.3) mg/dL Phosphorus 5.3 H (2.5-4.5) mg/dL AST 2789 H (17-59) U/L ALT 2564 H (4-49) U/L Alkaline Phosphatase 26 L (38-126) U/L Total Protein 2.5 L (6.3-8.2) g/dL Albumin 1.2 L (3.5-5.0) g/dL Crossmatch 04/06/24 04/06/24 04/06/24 Range/Units 04:50 07:50 07:55 WBC (3.8-10.6) k/uL RBC (4.30-5.90) m/uL Hgb (13.0-17.5) gm/dL Hct (39.0-53.0) % RDW (11.5-15.5) % Plt Count (150-450) k/uL PT 17.9 H (10.0-12.5) sec INR 1.8 H (<1.2) ABG pH (7.35-7.45) ABG pO2 (83-108) mmHg ABG HCO3 (21-25) mmol/L ABG Total CO2 (19-24) mmol/L ABG O2 Saturation (94-97) % Hemoglobin (13.0-17.5) gm/dL Sodium (137-145) mmol/L Potassium (3.5-5.1) mmol/L BUN (9-20) mg/dL Creatinine (0.66-1.25) mg/dL Glucose (74-99) mg/dL POC Glucose (mg/dL) 358 H (70-110) mg/dL Plasma Lactic Acid Jae (0.7-2.0) mmol/L Calcium (8.4-10.2) mg/dL Ionized Calcium Antoni 4.2 L (4.5-5.3) mg/dL Phosphorus (2.5-4.5) mg/dL AST (17-59) U/L ALT (4-49) U/L Alkaline Phosphatase (38-126) U/L Total Protein (6.3-8.2) g/dL Albumin (3.5-5.0) g/dL Crossmatch Microbiology - Last 24 Hours (Table) 04/05/24 03:59 Gram Stain - Preliminary Sputum Assessment and Plan (1) GI bleed Narrative/Plan: 73-year-old patient who presents with acute lower GI bleed. She started having maroon-colored stools with large clots since this morning came to the emergency room this afternoon and since then he had at least 3-4 large bloody bowel movements. Remains hypotensive. Was resuscitated with IV fluids and 2 mL of PRBC transfusion and repeat CBC still pending. Initial hemoglobin at the time of admission the hospital was 12.1 g/dL and repeat 1 prior to blood transfusion was 9.1 g/dL. Since being in the ICU he continues to remain hemodynamically unstable and passing large bloody bowel movements. On review of his records he did have a colonoscopy in November of this year that revealed 2 small polyps in the cecum and transverse colon that were removed. CT angiogram did reveal active extravasation of the contrast in the right colon and transverse colon consistent with active colonic bleed. Was seen by general surgery and taken for exploratory laparotomy and subtotal colectomy with end ileostomy. Continue to monitor blood loss. Upper endoscopy completed. CTA abdomen pelvis with no active intraluminal hemorrhage. Vascular surgery following who has reviewed and does not believe there is any aortoenteric fistula Continue with the supportive measures Current Visit: Yes Status: Acute Code(s): K92.2 - GASTROINTESTINAL HEMORRHAGE, UNSPECIFIED SNOMED Code(s): 71815692 (2) Elevated LFTs Narrative/Plan: Significantly elevated LFTs in the , acute ischemic hepatitis secondary to hypoperfusion/shock liver. No further workup indicated at this time continue to monitor LFTs. Current Visit: Yes Status: Acute Code(s): R79.89 - OTHER SPECIFIED ABNORMAL FINDINGS OF BLOOD CHEMISTRY SNOMED Code(s): 556699348 (3) AAA (abdominal aortic aneurysm) Narrative/Plan: Status post graft several years ago. No evidence of aortoenteric fistula per vascular surgery Current Visit: No Status: Acute Code(s): I71.4 - ABDOMINAL AORTIC ANEURYSM, WITHOUT RUPTURE * DO NOT USE * SNOMED Code(s): 283924397 (4) COPD exacerbation Current Visit: No Status: Acute Code(s): J44.1 - CHRONIC OBSTRUCTIVE PULMONARY DISEASE W (ACUTE) EXACERBATION SNOMED Code(s): 521717469 (5) Acute kidney injury Current Visit: Yes Status: Acute Code(s): N17.9 - ACUTE KIDNEY FAILURE, UNSPECIFIED SNOMED Code(s): 22927660 Plan: 1. Continue symptomatic and supportive care 2. Continue supportive care in the ICU 3. CBC every 6 hours, transfuse for hemoglobin less than 7 4. Protonix 40 mg IV for GI prophylaxis 5. Continue to monitor blood loss 6. Status post upper endoscopy 7. Daily CMP 8. Vascular surgery on consultation, no reported evidence of aortoenteric fistula 9. Continue with general surgery recommendations Thank you for this consultation, we will continue to follow closely. Dr. Dipesh Rojas I agree with the dictator's note, documented as a scribe by Yamileth Vásquez.
--- NOTE | 2024-04-06 11:35 | P.GSCN ---
History of Present Illness Consult date: 04/06/24 Reason for Consult: H/O infrarenal aortic graft rule out aortoenteric fistula Requesting physician: Jeb Lui History of present illness: History obtained from patient chart and nursing as patient is currently sedated and intubated. Patient is a 73-year-old white male came to the emergency room Thursday afternoon after having 2 episodes of bloody bowel movements at home. He has a past medical history including COPD, abdominal aortic aneurysm status post EVAR with aorta by iliac stent grafts in place, every day smoker, peripheral vascular disease and LA. He reportedly had complained of some vague lower abdominal discomfort but no nausea vomiting. Came to the emergency room and initially was noted to have a hemoglobin of 12.1 g/dL. However he was noted to be somewhat hypotensive and was resuscitated with fluids. While in the ER he had several large maroon-colored stools with large clots and continues remain hypertensive. He received 2 units of PRBC transfusion prior to which his hemoglobin dropped to 9.5 g/dL. He was transferred to the intensive care unit. Since being in the ICU he had another 2 episodes of large bloody bowel movements with dark clots. He denied any abdominal pain at this time. No nausea vomiting. In the ER he did have CT abdomen and pelvis/angiogram performed which revealed active extravasation of the contrast into the right colon and transverse colon suggestive of active GI bleed. He was brought back to the operating room with general surgery and underwent exploratory laparotomy with subtotal colectomy and end ileostomy. He remained sedated and intubated in the ICU continued on pressors with 650 mL of bloody output from ileostomy. He had OG is placed with suction however not much output, this was requested be flushed per gastroenterology at which time large amount of bloody output was noted. Subsequently he underwent an upper endoscopy at the bedside yesterday afternoon with old blood noted in the stomach and duodenum, gastritis and duodenitis seen, fresh dilated blood seen in the third portion of the duodenum but no obvious mucosal lesion or ulcers identified in that area gastroenterology recommended rule out small bowel source of bleeding and rule out hiatal and direct fistula. CTA abdomen/pelvis was ordered and vascular surgery was consulted to evaluate for possible aortoenteric fistula. He he is currently on his fifth unit of bloo d hemoglobin this morning 6.4 platelet count 56,000. Review of Systems ROS unobtainable: due to endotracheal tube Past Medical History Past Medical History: COPD, GERD/Reflux, Myocardial Infarction (LA), Pneumonia, Vascular Disorder Additional Past Medical History / Comment(s): Bronchitis, past respiratory failure, PVD, pt states LA per EKG, beginnings of bilateral cataracts. Mass on lung, agent orange from [place]. Last Myocardial Infarction Date:: 2009 per EKG History of Any Multi-Drug Resistant Organisms: None Reported Past Surgical History: Appendectomy Additional Past Surgical History / Comment(s): Endovascular aortic repair, L iliac stent, colonoscopy Past Anesthesia/Blood Transfusion Reactions: No Reported Reaction Additional Past Anesthesia/Blood Transfusion Reaction / Comm: no blood transfusion Past Psychological History: Anxiety, Depression Smoking Status: Current every day smoker Past Alcohol Use History: None Reported Past Drug Use History: None Reported - Past Family History Mother Family Medical History: Liver Disease Additional Family Medical History / Comment(s): liver cirrhosis Brother(s) Family Medical History: Vascular Disorder Father Family Medical History: Myocardial Infarction (LA) Medications and Allergies Home Medications Medication Instructions Recorded Confirmed Type Aspirin EC [Ecotrin Low Dose] 81 mg PO DAILY 12/11/19 04/04/24 History Albuterol Inhaler [Ventolin Hfa 2 puff INHALATION RT-Q6H PRN 04/04/24 04/04/24 History Inhaler] Atorvastatin [Lipitor] 40 mg PO HS 04/04/24 04/04/24 History Formoterol Fumarate [Perforomist] 20 mcg INHALATION RT-BID 04/04/24 04/04/24 History Ipratropium Nebulized [Atrovent 0.5 mg INHALATION RT-QID PRN 04/04/24 04/04/24 History Nebulized 0.2 MG/ML] Ketoconazole 2% Cream [Nizoral 2%] 1 applic TOPICAL DAILY PRN 04/04/24 04/04/24 History Mometasone/Formoterol [Dulera 200 2 puff INHALATION RT-BID 04/04/24 04/04/24 History Mcg-5 Mcg Inhaler] Omeprazole [PriLOSEC] 20 mg PO DAILY 04/04/24 04/04/24 History Tiotropium 2.5 Mcg/Puff [Spiriva 2 puff INHALATION RT-DAILY 04/04/24 04/04/24 History Respimat 2.5 Mcg] lisinopriL [Zestril] 10 mg PO DAILY 04/04/24 04/04/24 History predniSONE 5 mg PO DAILY 04/04/24 04/04/24 History traMADol HCL 100 mg PO Q8H PRN 04/04/24 04/04/24 History Allergies Allergy/AdvReac Type Severity Reaction Status Date / Time bee venom protein (honey bee) Allergy Unknown Verified 04/04/24 16:10 tape AdvReac Rash/Hives Uncoded 04/04/24 16:10 Surgical - Exam Vital Signs Temp Pulse Resp BP Pulse Ox 97.4 F L 86 18 83/60 80 L 04/04/24 10:40 04/04/24 10:40 04/04/24 10:40 04/04/24 10:40 04/04/24 10:40 General appearance: The patient is sedated and intubated. HET: Head is normocephalic and atraumatic. Neck: Supple. Heart: Regular. Lungs: Equal expansion, on mechanical ventilation. Abdomen: Soft, nondistended. Ileostomy with small amount of dark bloody drainage. Extremities: Normal skin color and turgor. Palpable femoral pulses Neurological: Sedated and intubated. Results - Labs 04/06/24 10:24 04/06/24 04:50 Abnormal Lab Results - Last 24 Hours (Table) 04/04/24 04/05/24 04/05/24 Range/Units 16:35 04:06 09:56 WBC (3.8-10.6) k/uL RBC (4.30-5.90) m/uL Hgb (13.0-17.5) gm/dL Hct (39.0-53.0) % RDW (11.5-15.5) % Plt Count (150-450) k/uL PT (10.0-12.5) sec INR (<1.2) ABG pH 7.18 L* (7.35-7.45) ABG pO2 129 H (83-108) mmHg ABG HCO3 16 L (21-25) mmol/L ABG Total CO2 18 L (19-24) mmol/L ABG O2 Saturation 98.6 H (94-97) % Hemoglobin 9.0 L (13.0-17.5) gm/dL Sodium (137-145) mmol/L Potassium (3.5-5.1) mmol/L BUN (9-20) mg/dL Creatinine (0.66-1.25) mg/dL Glucose (74-99) mg/dL POC Glucose (mg/dL) (70-110) mg/dL Plasma Lactic Acid Jae (0.7-2.0) mmol/L Calcium (8.4-10.2) mg/dL Ionized Calcium Antoni (4.5-5.3) mg/dL Phosphorus (2.5-4.5) mg/dL AST (17-59) U/L ALT (4-49) U/L Alkaline Phosphatase (38-126) U/L Total Protein (6.3-8.2) g/dL Albumin 1.6 L (3.5-5.0) g/dL Crossmatch See Detail 04/05/24 04/05/24 04/05/24 Range/Units 11:50 11:50 16:05 WBC 11.8 H (3.8-10.6) k/uL RBC 2.62 L 2.70 L (4.30-5.90) m/uL Hgb 8.3 L 8.6 L (13.0-17.5) gm/dL Hct 24.9 L 25.6 L (39.0-53.0) % RDW 16.0 H 16.1 H (11.5-15.5) % Plt Count 73 L 78 L (150-450) k/uL PT (10.0-12.5) sec INR (<1.2) ABG pH (7.35-7.45) ABG pO2 (83-108) mmHg ABG HCO3 (21-25) mmol/L ABG Total CO2 (19-24) mmol/L ABG O2 Saturation (94-97) % Hemoglobin (13.0-17.5) gm/dL Sodium (137-145) mmol/L Potassium (3.5-5.1) mmol/L BUN (9-20) mg/dL Creatinine (0.66-1.25) mg/dL Glucose (74-99) mg/dL POC Glucose (mg/dL) 222 H (70-110) mg/dL Plasma Lactic Acid Jae (0.7-2.0) mmol/L Calcium (8.4-10.2) mg/dL Ionized Calcium Antoni (4.5-5.3) mg/dL Phosphorus (2.5-4.5) mg/dL AST (17-59) U/L ALT (4-49) U/L Alkaline Phosphatase (38-126) U/L Total Protein (6.3-8.2) g/dL Albumin (3.5-5.0) g/dL Crossmatch 04/05/24 04/05/24 04/05/24 Range/Units 18:19 18:21 21:41 WBC (3.8-10.6) k/uL RBC (4.30-5.90) m/uL Hgb (13.0-17.5) gm/dL Hct (39.0-53.0) % RDW (11.5-15.5) % Plt Count (150-450) k/uL PT (10.0-12.5) sec INR (<1.2) ABG pH 7.27 L (7.35-7.45) ABG pO2 (83-108) mmHg ABG HCO3 18 L (21-25) mmol/L ABG Total CO2 (19-24) mmol/L ABG O2 Saturation (94-97) % Hemoglobin 7.8 L (13.0-17.5) gm/dL Sodium (137-145) mmol/L Potassium (3.5-5.1) mmol/L BUN (9-20) mg/dL Creatinine (0.66-1.25) mg/dL Glucose (74-99) mg/dL POC Glucose (mg/dL) 248 H 329 H (70-110) mg/dL Plasma Lactic Acid Jae (0.7-2.0) mmol/L Calcium (8.4-10.2) mg/dL Ionized Calcium Antoni (4.5-5.3) mg/dL Phosphorus (2.5-4.5) mg/dL AST (17-59) U/L ALT (4-49) U/L Alkaline Phosphatase (38-126) U/L Total Protein (6.3-8.2) g/dL Albumin (3.5-5.0) g/dL Crossmatch 04/05/24 04/05/24 04/05/24 Range/Units 21:50 23:05 23:20 WBC 12.8 H (3.8-10.6) k/uL RBC 2.36 L (4.30-5.90) m/uL Hgb 7.5 L (13.0-17.5) gm/dL Hct 22.9 L (39.0-53.0) % RDW 15.8 H (11.5-15.5) % Plt Count 77 L (150-450) k/uL PT (10.0-12.5) sec INR (<1.2) ABG pH (7.35-7.45) ABG pO2 (83-108) mmHg ABG HCO3 (21-25) mmol/L ABG Total CO2 (19-24) mmol/L ABG O2 Saturation (94-97) % Hemoglobin (13.0-17.5) gm/dL Sodium 134 L (137-145) mmol/L Potassium 5.2 H (3.5-5.1) mmol/L BUN 49 H (9-20) mg/dL Creatinine 2.01 H (0.66-1.25) mg/dL Glucose 299 H (74-99) mg/dL POC Glucose (mg/dL) 111 H (70-110) mg/dL Plasma Lactic Acid Jae (0.7-2.0) mmol/L Calcium 7.0 L (8.4-10.2) mg/dL Ionized Calcium Antoni (4.5-5.3) mg/dL Phosphorus (2.5-4.5) mg/dL AST (17-59) U/L ALT (4-49) U/L Alkaline Phosphatase (38-126) U/L Total Protein (6.3-8.2) g/dL Albumin (3.5-5.0) g/dL Crossmatch 04/05/24 04/05/24 04/06/24 Range/Units 23:20 23:22 02:12 WBC 13.1 H (3.8-10.6) k/uL RBC 2.33 L (4.30-5.90) m/uL Hgb 7.4 L (13.0-17.5) gm/dL Hct 22.7 L (39.0-53.0) % RDW 15.8 H (11.5-15.5) % Plt Count 71 L (150-450) k/uL PT (10.0-12.5) sec INR (<1.2) ABG pH (7.35-7.45) ABG pO2 (83-108) mmHg ABG HCO3 (21-25) mmol/L ABG Total CO2 (19-24) mmol/L ABG O2 Saturation (94-97) % Hemoglobin (13.0-17.5) gm/dL Sodium (137-145) mmol/L Potassium (3.5-5.1) mmol/L BUN (9-20) mg/dL Creatinine (0.66-1.25) mg/dL Glucose (74-99) mg/dL POC Glucose (mg/dL) 373 H (70-110) mg/dL Plasma Lactic Acid Jae 7.2 H* (0.7-2.0) mmol/L Calcium (8.4-10.2) mg/dL Ionized Calcium Antoni (4.5-5.3) mg/dL Phosphorus (2.5-4.5) mg/dL AST (17-59) U/L ALT (4-49) U/L Alkaline Phosphatase (38-126) U/L Total Protein (6.3-8.2) g/dL Albumin (3.5-5.0) g/dL Crossmatch 04/06/24 04/06/24 04/06/24 Range/Units 04:40 04:50 04:50 WBC (3.8-10.6) k/uL RBC 1.94 L (4.30-5.90) m/uL Hgb 6.4 L* (13.0-17.5) gm/dL Hct 18.5 L* (39.0-53.0) % RDW 16.2 H (11.5-15.5) % Plt Count 56 L (150-450) k/uL PT (10.0-12.5) sec INR (<1.2) ABG pH 7.31 L (7.35-7.45) ABG pO2 74 L (83-108) mmHg ABG HCO3 (21-25) mmol/L ABG Total CO2 (19-24) mmol/L ABG O2 Saturation (94-97) % Hemoglobin 6.4 L* (13.0-17.5) gm/dL Sodium 136 L (137-145) mmol/L Potassium (3.5-5.1) mmol/L BUN 52 H (9-20) mg/dL Creatinine 2.03 H (0.66-1.25) mg/dL Glucose 323 H (74-99) mg/dL POC Glucose (mg/dL) (70-110) mg/dL Plasma Lactic Acid Jae (0.7-2.0) mmol/L Calcium 6.6 L (8.4-10.2) mg/dL Ionized Calcium Antoni (4.5-5.3) mg/dL Phosphorus 5.3 H (2.5-4.5) mg/dL AST 2789 H (17-59) U/L ALT 2564 H (4-49) U/L Alkaline Phosphatase 26 L (38-126) U/L Total Protein 2.5 L (6.3-8.2) g/dL Albumin 1.2 L (3.5-5.0) g/dL Crossmatch 04/06/24 04/06/24 04/06/24 Range/Units 04:50 07:50 07:55 WBC (3.8-10.6) k/uL RBC (4.30-5.90) m/uL Hgb (13.0-17.5) gm/dL Hct (39.0-53.0) % RDW (11.5-15.5) % Plt Count (150-450) k/uL PT 17.9 H (10.0-12.5) sec INR 1.8 H (<1.2) ABG pH (7.35-7.45) ABG pO2 (83-108) mmHg ABG HCO3 (21-25) mmol/L ABG Total CO2 (19-24) mmol/L ABG O2 Saturation (94-97) % Hemoglobin (13.0-17.5) gm/dL Sodium (137-145) mmol/L Potassium (3.5-5.1) mmol/L BUN (9-20) mg/dL Creatinine (0.66-1.25) mg/dL Glucose (74-99) mg/dL POC Glucose (mg/dL) 358 H (70-110) mg/dL Plasma Lactic Acid Jae (0.7-2.0) mmol/L Calcium (8.4-10.2) mg/dL Ionized Calcium Antoni 4.2 L (4.5-5.3) mg/dL Phosphorus (2.5-4.5) mg/dL AST (17-59) U/L ALT (4-49) U/L Alkaline Phosphatase (38-126) U/L Total Protein (6.3-8.2) g/dL Albumin (3.5-5.0) g/dL Crossmatch Microbiology - Last 24 Hours (Table) 04/05/24 03:59 Gram Stain - Preliminary Sputum Diabetes panel 04/05/24 04/05/24 04/06/24 Range/Units 04:06 23:20 04:50 Sodium 134 L 136 L (137-145) mmol/L Potassium 5.2 H 4.2 (3.5-5.1) mmol/L Chloride 106 107 (98-107) mmol/L Carbon Dioxide 22 24 (22-30) mmol/L BUN 49 H 52 H (9-20) mg/dL Creatinine 2.01 H 2.03 H (0.66-1.25) mg/dL Glucose 299 H 323 H (74-99) mg/dL Calcium 7.0 L 6.6 L (8.4-10.2) mg/dL AST 2789 H (17-59) U/L ALT 2564 H (4-49) U/L Alkaline Phosphatase 26 L (38-126) U/L Total Protein 2.5 L (6.3-8.2) g/dL Albumin 1.6 L 1.2 L (3.5-5.0) g/dL Calcium panel 04/05/24 04/05/24 04/06/24 Range/Units 04:06 23:20 04:50 Calcium 7.0 L 6.6 L (8.4-10.2) mg/dL Ionized Calcium Antoni (4.5-5.3) mg/dL Phosphorus 3.7 5.3 H (2.5-4.5) mg/dL Albumin 1.6 L 1.2 L (3.5-5.0) g/dL 04/06/24 Range/Units 04:50 Calcium (8.4-10.2) mg/dL Ionized Calcium Antoni 4.2 L (4.5-5.3) mg/dL Phosphorus (2.5-4.5) mg/dL Albumin (3.5-5.0) g/dL Pituitary panel 04/05/24 04/06/24 Range/Units 23:20 04:50 Sodium 134 L 136 L (137-145) mmol/L Potassium 5.2 H 4.2 (3.5-5.1) mmol/L Chloride 106 107 (98-107) mmol/L Carbon Dioxide 22 24 (22-30) mmol/L BUN 49 H 52 H (9-20) mg/dL Creatinine 2.01 H 2.03 H (0.66-1.25) mg/dL Glucose 299 H 323 H (74-99) mg/dL Calcium 7.0 L 6.6 L (8.4-10.2) mg/dL Adrenal panel 04/05/24 04/05/24 04/06/24 Range/Units 04:06 23:20 04:50 Sodium 134 L 136 L (137-145) mmol/L Potassium 5.2 H 4.2 (3.5-5.1) mmol/L Chloride 106 107 (98-107) mmol/L Carbon Dioxide 22 24 (22-30) mmol/L BUN 49 H 52 H (9-20) mg/dL Creatinine 2.01 H 2.03 H (0.66-1.25) mg/dL Glucose 299 H 323 H (74-99) mg/dL Calcium 7.0 L 6.6 L (8.4-10.2) mg/dL Total Bilirubin 0.5 (0.2-1.3) mg/dL AST 2789 H (17-59) U/L ALT 2564 H (4-49) U/L Alkaline Phosphatase 26 L (38-126) U/L Total Protein 2.5 L (6.3-8.2) g/dL Albumin 1.6 L 1.2 L (3.5-5.0) g/dL - Imaging Comments: CT abdomen and pelvis/angiogram performed which revealed active extravasation of the contrast into the right colon and transverse colon suggestive of active GI bleed. CT angiogram abdomen and pelvis reports limited examination given lack of history. Postsurgical changes within the abdomen with free air. Findings may relate to recent surgery. Aorto by iliac endograft changes. The size of the excluded aneurysm measures up to 6.7 cm. 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 Hypodensity within the right iliac limb may relate to thrombus versus intimal hyperplasia. No gross evidence of active intraluminal hemorrhage. Consider delayed imaging or scintigraphic imaging if there is further concern. Periportal edema in the liver which is nonspecific finding. Correlation with any clinical signs of congestive heart failure hepatitis may be helpful. Other incidental findings as described. Chest x-ray reports focal density within the upper outer right apex. Neoplasm not excluded. Lines and catheters discussed as above Echocardiogram normal LV function, moderate pericardial effusion, mild to moderate aortic regurgitation, aneurysmal dilation of aortic root not particularly well-visualized consider CT scan of chest to rule out dissection Assessment and Plan Assessment: 1. Postop day #2 subtotal colectomy secondary to GI hemorrhage 2. Acute blood loss anemia 3. Acute kidney injury 4. Elevated LFTs secondary to shock liver 5. History of AAA status post endovascular aorta repair with aortobiiliac stents 6. COPD 7. Current everyday smoker Plan: CT angiogram abdomen pelvis independently reviewed by Dr. Lopez. No evidence of air in peritoneum and no evidence of aortoenteric fistula. There is no indication for any vascular surgical intervention at this time. Continue with recommendations from GI and general surgery. Continue supportive measures with in the ICU. Thank you for this consultation. Will sign off at this time. Please do not hesitate to call us back if needed. The impression and plan of care has been dictated as directed. I performed a history and examination of this patient, discussed the same with the dictator. I agree with the dictator's note ,documented as a scribe. Any additional findings or plans will be noted.
[2024-04-06 14:15] LABS: Glucose,Whole Blood 257 mg/dL (70-110)
--- NOTE | 2024-04-06 14:21 | P.PN ---
Subjective Progress Note Date: 04/06/24 Principal diagnosis: Acute lower GI bleeding This is a 73-year-old white male familiar to my service, known history of severe COPD, patient was seen in the ER today, he was brought in with feeling lightheaded and dizzy and diaphoresis. Apparently since earlier today the patient has been experiencing diarrhea and he may have had according to him a syncopal episode. Does not believe that he was out for very long, patient fell, sustained a small abrasion on the right arm and left knee, patient has also been complaining of bright red blood per rectum baseline hemoglobin was 12.1 at 11:15 AM, follow-up hemoglobin at 3 PM was down to 9.4 in addition to her GI symptoms, patient is complaining of coughing wheezing and shortness of breath. GI has been consulted, I saw the patient done in the ER, and I recommended admitting the patient to the ICU. In the meantime the patient may need to have further evaluation for his GI bleeding, he will need to be placed on bronchodilators for his COPD, and will need to be closely monitored, hence I am recommending ICU admission. Patient is known to have history of severe COPD, chronic tobacco dependence, history of abdominal aortic aneurysm and had previous aortoiliac stents, he is also known to have history of hypertension, alcoholism, and his primary care physician [facility]. Baseline FEV1 is in the range of 52%, patient is known to have history of chronic right apical scarring, underlying malignancy is not entirely ruled out, patient is being followed closely on outpatient basis for his abnormal CT of the chest. Chest x-ray on this admission showed mostly right apical scarring, chronic, and evidence of C OPD, otherwise no evidence of acute process. CT of the head and cervical spine, showed no acute intracranial process. Patient evaluated today on 04/05/2024, patient was admitted yesterday to the ICU, and shortly after he arrived to the ICU, his GI bleeding became extremely more profound. Surgery was consulted by gastroenterology, and the patient underwent exploratory laparotomy and subtotal colectomy with end ileostomy. Patient was brought back to the ICU last night on mechanical ventilation, remains intubated mechanically ventilated. He is now on assist-control rate of 16 tidal volume 500 FiO2 50% and PEEP of 5. ABG showed a pO2 of 123 pCO2 41 pH of 7.20, patient remains on bicarb drip. His FiO2 was cut down to 40% tidal volume cut down to 450 and Titrate at 16. Patient is requiring norepinephrine at 0.2 mcg/kg/min he is also on IV fluid at 75 cc/h propofol at 20 mcg/kg/min D5W with 3 A of bicarb running at 125 cc/h patient is empirically on Zosyn, received a total of 4 units of packed RBCs since admission his hemoglobin today is 8.7. Urine output is marginal, 10 cc/h, more fluid boluses were given. Most recent ABG showed a pO2 of 129 pCO2 43 and pH of 7.18 hence more sodium bicarb was given. WBC count is 8.0 hemoglobin 8.3 platelets are 73,000 sodium 128 potassium 5.1 chloride 110 bicarb is 16 BUN is 38 creatinine 0.95. Patient was evaluated today on 04/06/2024, remains in the ICU, intubated and mechanically ventilated. Patient is on assist-control rate of 20 tidal volume 450 FiO2 40% and PEEP of 5 ABG showed a pO2 of 74 pCO2 45 pH of 7.31. Patient required significant amount of fluids yesterday for low blood pressure and he is still requiring norepinephrine at 0.11 mcg/kg/min. Received a total of 5 units of packed RBCs since admission, his 6 unit will be given today for a hemoglobin of 6.4. Patient also received fresh frozen plasma as ordered by oncology. He seems to have elevated PTT, elevated PTT, and low platelets. Last night the patient was becoming more and more agitated and desaturating with his extreme agitation, hence added to propofol 50 mcg/kg/min I added Nimbex he is now on Nimbex drip at 2 mg/kg/min he is also on D5W with 3 A of bicarb running at 125 cc/h and this was cut down to 50 cc/h since his bicarb is improved today. Chilo woods is on TPN at 30 mL/h. And is also on fentanyl at 0.25 mcg/kg/h. Urine output is marginal about 10 to 20 cc/h being followed by nephrology. Patient is not receiving any heparin or any subcu heparin. Obviously the patient is critically ill, and his still receiving antibiotics.Zosyn for presumptive abdominal sepsis. Patient is also on methylprednisolone for his underlying COPD at 40 mg IV push every 8 hours. Patient has been seen by many consultants including general surgery, vascular surgery, hematology, nephrology, hematology seems to be concerned about possible ongoing blood loss, and recommending a tagged RBC study. Objective - Vital Signs Vital signs: Vital Signs Temp 98.1 F 04/06/24 13:00 Pulse 102 H 04/06/24 13:00 Resp 22 04/06/24 13:00 BP 114/52 04/06/24 13:00 Pulse Ox 96 04/06/24 13:00 FiO2 40 04/06/24 12:00 Intake & Output 04/05/24 04/06/24 04/06/24 18:59 06:59 18:59 Intake Total 3962.514 3514.413 1791.238 Output Total 795 590 150 Balance 3167.514 2924.413 1641.238 Weight 66.7 kg 76.3 kg Intake: IV 3700 2700 595 Dextrose 5% in Water 1, 1500 1500 475 000 ml @ 50 mls/hr IV . Q23H BBOBY with Sodium Bicarb (1 Meq/ml) 150 ml Rx#:[id number] Magnesium Sulfate-D5w Pmx 100 1 gm In Dextrose/Water 1 100ml.bag @ 100 mls/hr IVPB ONCE ONE Rx#: [id number] Piperacillin-Tazobactam 3 100 200 .375 gm In Sodium Chloride 0.9% 100 ml @ 25 mls/hr IVPB Q8H BOBBY Rx#: [id number] Sodium Chloride 0.9% 1, 2000 1000 000 ml @ 999 mls/hr IV . Q1H1M ONE Rx#:[id number] TPN 120 Intake, IV Titration 262.514 814.413 238.238 Amount Cisatracurium 200 mg In 107.921 60.43 Sodium Chloride 0.9% 180 ml @ 1 MCG/KG/MIN 4.002 mls/hr IV .Q24H BOBBY Rx#: [id number] Norepinephrine 4 mg In 173.754 467.845 92.385 Sodium Chloride 0.9% 250 ml @ 0.03 MCG/KG/MIN 7. 258 mls/hr IV .Q24H [facility]BY Rx#:[id number] Vasopressin 60 unit In 45.823 6.044 Sodium Chloride 0.9% 150 ml @ 0.03 UNITS/MIN 4.59 mls/hr IV .Q24H [facility]OBBY Rx#: [id number] propofoL 1,000 mg In 88.760 192.824 79.379 Empty Bag 1 bag @ 15 MCG/ KG/MIN 5.715 mls/hr IV . [id number] [facility] Rx#:[id number] Blood Product 0 958 Ffp 24 Cpd Unit 359 [id number] Rc As-1 Unit 0 310 [id number] Rc Pheresis 2 As3 Unit 289 [id number] Output: Urine 145 430 150 Stool 650 160 Other: Voiding Method Indwelling Catheter Indwelling Catheter Indwelling Catheter ABP, PAP, CO, CI - Last Documented Arterial Blood Pressure 118/53 - Exam GENERAL EXAM: Reveals 73-year-old white male, intubated and mechanically ventilated. Sedated and paralyzed HEAD: Normocephalic and atraumatic, endotracheal tube and nasogastric tube intact. EYES: Normal reaction of pupils, equal size. Pale conjunctivae, nonicteric NOSE: Clear with pink turbinates. THROAT: No erythema or exudates. NECK: No masses, no JVD. CHEST: No chest wall deformity. LUNGS: Diminished breath sound crackles at the bases with some wheezing CVS: S1 and S2 normal with no audible murmur, regular rhythm. No extra heart sounds ABDOMEN: Postsurgical, ileostomy is noted dark blood noted in the ileostomy bag. And the ileostomy mucosa seems to be dark. SKIN: No rashes CENTRAL NERVOUS SYSTEM: Not assessed patient is sedated, on propofol and Nimbex EXTREMITIES: There is no peripheral edema, clubbing, or cyanosis. Peripheral pulses are intact. - Labs CBC & Chem 7: 04/06/24 10:24 04/06/24 04:50 Labs: Abnormal Lab Results - Last 24 Hours (Table) 04/04/24 04/05/24 04/05/24 Range/Units 16:35 04:06 16:05 WBC 11.8 H (3.8-10.6) k/uL RBC 2.70 L (4.30-5.90) m/uL Hgb 8.6 L (13.0-17.5) gm/dL Hct 25.6 L (39.0-53.0) % RDW 16.1 H (11.5-15.5) % Plt Count 78 L (150-450) k/uL PT (10.0-12.5) sec INR (<1.2) APTT (22.0-30.0) sec D-Dimer (<0.60) mg/L FEU ABG pH (7.35-7.45) ABG pO2 (83-108) mmHg ABG HCO3 (21-25) mmol/L Hemoglobin (13.0-17.5) gm/dL Sodium (137-145) mmol/L Potassium (3.5-5.1) mmol/L BUN (9-20) mg/dL Creatinine (0.66-1.25) mg/dL Glucose (74-99) mg/dL POC Glucose (mg/dL) (70-110) mg/dL Plasma Lactic Acid Jae (0.7-2.0) mmol/L Calcium (8.4-10.2) mg/dL Ionized Calcium Antoni (4.5-5.3) mg/dL Phosphorus (2.5-4.5) mg/dL AST (17-59) U/L ALT (4-49) U/L Alkaline Phosphatase (38-126) U/L Lactate Dehydrogenase (120-246) U/L Total Protein (6.3-8.2) g/dL Albumin 1.6 L (3.5-5.0) g/dL Crossmatch See Detail 04/05/24 04/05/24 04/05/24 Range/Units 18:19 18:21 21:41 WBC (3.8-10.6) k/uL RBC (4.30-5.90) m/uL Hgb (13.0-17.5) gm/dL Hct (39.0-53.0) % RDW (11.5-15.5) % Plt Count (150-450) k/uL PT (10.0-12.5) sec INR (<1.2) APTT (22.0-30.0) sec D-Dimer (<0.60) mg/L FEU ABG pH 7.27 L (7.35-7.45) ABG pO2 (83-108) mmHg ABG HCO3 18 L (21-25) mmol/L Hemoglobin 7.8 L (13.0-17.5) gm/dL Sodium (137-145) mmol/L Potassium (3.5-5.1) mmol/L BUN (9-20) mg/dL Creatinine (0.66-1.25) mg/dL Glucose (74-99) mg/dL POC Glucose (mg/dL) 248 H 329 H (70-110) mg/dL Plasma Lactic Acid Jae (0.7-2.0) mmol/L Calcium (8.4-10.2) mg/dL Ionized Calcium Antoni (4.5-5.3) mg/dL Phosphorus (2.5-4.5) mg/dL AST (17-59) U/L ALT (4-49) U/L Alkaline Phosphatase (38-126) U/L Lactate Dehydrogenase (120-246) U/L Total Protein (6.3-8.2) g/dL Albumin (3.5-5.0) g/dL Crossmatch 04/05/24 04/05/24 04/05/24 Range/Units 21:50 23:05 23:20 WBC 12.8 H (3.8-10.6) k/uL RBC 2.36 L (4.30-5.90) m/uL Hgb 7.5 L (13.0-17.5) gm/dL Hct 22.9 L (39.0-53.0) % RDW 15.8 H (11.5-15.5) % Plt Count 77 L (150-450) k/uL PT (10.0-12.5) sec INR (<1.2) APTT (22.0-30.0) sec D-Dimer (<0.60) mg/L FEU ABG pH (7.35-7.45) ABG pO2 (83-108) mmHg ABG HCO3 (21-25) mmol/L Hemoglobin (13.0-17.5) gm/dL Sodium 134 L (137-145) mmol/L Potassium 5.2 H (3.5-5.1) mmol/L BUN 49 H (9-20) mg/dL Creatinine 2.01 H (0.66-1.25) mg/dL Glucose 299 H (74-99) mg/dL POC Glucose (mg/dL) 111 H (70-110) mg/dL Plasma Lactic Acid Jae (0.7-2.0) mmol/L Calcium 7.0 L (8.4-10.2) mg/dL Ionized Calcium Antoni (4.5-5.3) mg/dL Phosphorus (2.5-4.5) mg/dL AST (17-59) U/L ALT (4-49) U/L Alkaline Phosphatase (38-126) U/L Lactate Dehydrogenase (120-246) U/L Total Protein (6.3-8.2) g/dL Albumin (3.5-5.0) g/dL Crossmatch 04/05/24 04/05/24 04/06/24 Range/Units 23:20 23:22 02:12 WBC 13.1 H (3.8-10.6) k/uL RBC 2.33 L (4.30-5.90) m/uL Hgb 7.4 L (13.0-17.5) gm/dL Hct 22.7 L (39.0-53.0) % RDW 15.8 H (11.5-15.5) % Plt Count 71 L (150-450) k/uL PT (10.0-12.5) sec INR (<1.2) APTT (22.0-30.0) sec D-Dimer (<0.60) mg/L FEU ABG pH (7.35-7.45) ABG pO2 (83-108) mmHg ABG HCO3 (21-25) mmol/L Hemoglobin (13.0-17.5) gm/dL Sodium (137-145) mmol/L Potassium (3.5-5.1) mmol/L BUN (9-20) mg/dL Creatinine (0.66-1.25) mg/dL Glucose (74-99) mg/dL POC Glucose (mg/dL) 373 H (70-110) mg/dL Plasma Lactic Acid Jae 7.2 H* (0.7-2.0) mmol/L Calcium (8.4-10.2) mg/dL Ionized Calcium Antoni (4.5-5.3) mg/dL Phosphorus (2.5-4.5) mg/dL AST (17-59) U/L ALT (4-49) U/L Alkaline Phosphatase (38-126) U/L Lactate Dehydrogenase (120-246) U/L Total Protein (6.3-8.2) g/dL Albumin (3.5-5.0) g/dL Crossmatch 04/06/24 04/06/24 04/06/24 Range/Units 04:40 04:50 04:50 WBC (3.8-10.6) k/uL RBC 1.94 L (4.30-5.90) m/uL Hgb 6.4 L* (13.0-17.5) gm/dL Hct 18.5 L* (39.0-53.0) % RDW 16.2 H (11.5-15.5) % Plt Count 56 L (150-450) k/uL PT (10.0-12.5) sec INR (<1.2) APTT (22.0-30.0) sec D-Dimer (<0.60) mg/L FEU ABG pH 7.31 L (7.35-7.45) ABG pO2 74 L (83-108) mmHg ABG HCO3 (21-25) mmol/L Hemoglobin 6.4 L* (13.0-17.5) gm/dL Sodium 136 L (137-145) mmol/L Potassium (3.5-5.1) mmol/L BUN 52 H (9-20) mg/dL Creatinine 2.03 H (0.66-1.25) mg/dL Glucose 323 H (74-99) mg/dL POC Glucose (mg/dL) (70-110) mg/dL Plasma Lactic Acid Jae (0.7-2.0) mmol/L Calcium 6.6 L (8.4-10.2) mg/dL Ionized Calcium Antoni (4.5-5.3) mg/dL Phosphorus 5.3 H (2.5-4.5) mg/dL AST 2789 H (17-59) U/L ALT 2564 H (4-49) U/L Alkaline Phosphatase 26 L (38-126) U/L Lactate Dehydrogenase (120-246) U/L Total Protein 2.5 L (6.3-8.2) g/dL Albumin 1.2 L (3.5-5.0) g/dL Crossmatch 04/06/24 04/06/24 04/06/24 Range/Units 04:50 07:50 07:50 WBC (3.8-10.6) k/uL RBC (4.30-5.90) m/uL Hgb (13.0-17.5) gm/dL Hct (39.0-53.0) % RDW (11.5-15.5) % Plt Count (150-450) k/uL PT 17.9 H (10.0-12.5) sec INR 1.8 H (<1.2) APTT (22.0-30.0) sec D-Dimer (<0.60) mg/L FEU ABG pH (7.35-7.45) ABG pO2 (83-108) mmHg ABG HCO3 (21-25) mmol/L Hemoglobin (13.0-17.5) gm/dL Sodium (137-145) mmol/L Potassium (3.5-5.1) mmol/L BUN (9-20) mg/dL Creatinine (0.66-1.25) mg/dL Glucose (74-99) mg/dL POC Glucose (mg/dL) (70-110) mg/dL Plasma Lactic Acid Jae 4.1 H* (0.7-2.0) mmol/L Calcium (8.4-10.2) mg/dL Ionized Calcium Antoni 4.2 L (4.5-5.3) mg/dL Phosphorus (2.5-4.5) mg/dL AST (17-59) U/L ALT (4-49) U/L Alkaline Phosphatase (38-126) U/L Lactate Dehydrogenase (120-246) U/L Total Protein (6.3-8.2) g/dL Albumin (3.5-5.0) g/dL Crossmatch 04/06/24 04/06/24 04/06/24 Range/Units 07:50 07:55 10:24 WBC (3.8-10.6) k/uL RBC (4.30-5.90) m/uL Hgb (13.0-17.5) gm/dL Hct (39.0-53.0) % RDW (11.5-15.5) % Plt Count (150-450) k/uL PT (10.0-12.5) sec INR (<1.2) APTT 43.7 H (22.0-30.0) sec D-Dimer 19.58 H (<0.60) mg/L FEU ABG pH (7.35-7.45) ABG pO2 (83-108) mmHg ABG HCO3 (21-25) mmol/L Hemoglobin (13.0-17.5) gm/dL Sodium (137-145) mmol/L Potassium (3.5-5.1) mmol/L BUN (9-20) mg/dL Creatinine (0.66-1.25) mg/dL Glucose (74-99) mg/dL POC Glucose (mg/dL) 358 H (70-110) mg/dL Plasma Lactic Acid Jae (0.7-2.0) mmol/L Calcium (8.4-10.2) mg/dL Ionized Calcium Antoni (4.5-5.3) mg/dL Phosphorus (2.5-4.5) mg/dL AST (17-59) U/L ALT (4-49) U/L Alkaline Phosphatase (38-126) U/L Lactate Dehydrogenase 1097 H (120-246) U/L Total Protein (6.3-8.2) g/dL Albumin (3.5-5.0) g/dL Crossmatch 04/06/24 Range/Units 10:24 WBC 11.1 H (3.8-10.6) k/uL RBC 2.64 L (4.30-5.90) m/uL Hgb 8.3 L D (13.0-17.5) gm/dL Hct 25.1 L (39.0-53.0) % RDW 15.7 H (11.5-15.5) % Plt Count 67 L (150-450) k/uL PT (10.0-12.5) sec INR (<1.2) APTT (22.0-30.0) sec D-Dimer (<0.60) mg/L FEU ABG pH (7.35-7.45) ABG pO2 (83-108) mmHg ABG HCO3 (21-25) mmol/L Hemoglobin (13.0-17.5) gm/dL Sodium (137-145) mmol/L Potassium (3.5-5.1) mmol/L BUN (9-20) mg/dL Creatinine (0.66-1.25) mg/dL Glucose (74-99) mg/dL POC Glucose (mg/dL) (70-110) mg/dL Plasma Lactic Acid Jae (0.7-2.0) mmol/L Calcium (8.4-10.2) mg/dL Ionized Calcium Antoni (4.5-5.3) mg/dL Phosphorus (2.5-4.5) mg/dL AST (17-59) U/L ALT (4-49) U/L Alkaline Phosphatase (38-126) U/L Lactate Dehydrogenase (120-246) U/L Total Protein (6.3-8.2) g/dL Albumin (3.5-5.0) g/dL Crossmatch Microbiology - Last 24 Hours (Table) 04/05/24 03:59 Gram Stain - Preliminary Sputum Sputum Culture - Preliminary Gram Neg Bacilli Assessment and Plan Assessment: Impression: Massive lower GI bleeding, noted to be from right and transverse colon requiring exploratory laparotomy, subtotal colectomy, and ileostomy, postoperative day #2 Acute exacerbation of COPD Acute blood loss anemia, patient required 5 units of packed RBCs transfusion since admission so far. Chronic right apical scarring History of alcoholism History of abdominal aortic aneurysm status post aortoiliac stent Acute kidney injury most likely secondary to hypotension and acute tubular necrosis Shock liver with transaminitis Benign essential hypertension Ongoing tobacco dependence Chronic right upper lobe scarring, underlying malignancy is not entirely ruled out but felt to be less likely Thrombocytopenia with elevated pro time and elevated PTT but relatively normal fibrinogen, doubt DIC this could be more of a consumption coagulopathy, hematology is following Recommendation: Continue fluid resuscitation Continue blood products including packed RBCs and fresh frozen plasma Continue ventilatory support Continue sedation and paralysis/Nimbex as well as propofol and fentanyl. Continue hemodynamic support Continue Protonix/GI prophylaxis DVT prophylaxis/Venodyne boots, platelets are low for subcu heparin Continue to monitor hemoglobin hematocrit and transfuse for hemoglobin below 7 Continue bronchodilators including DuoNeb, Symbicort, and Solu-Medrol. Continue IV Zosyn Down on the bicarb drip since his bicarb seems to be improving Patient is critically ill Patient may require TPN for nutritional support Prognosis is guarded considering his multiple comorbidities. Critical care time is over 30 minutes Time with Patient: Greater than 30
[2024-04-06 14:48] LABS: INR 1.4 (<1.2); Partial Thromboplastin Time 34.8 sec (22.0-30.0); Prothrombin Time 14.6 sec (10.0-12.5)
[2024-04-06 16:15] LABS: Glucose,Whole Blood 229 mg/dL (70-110)
[2024-04-06 16:22] LABS: Anisocytosis Slight; HCT 25.8 % (39.0-53.0); HGB 8.9 gm/dL (13.0-17.5); MCH 31.2 pg (25.0-35.0); MCHC 34.6 g/dL (31.0-37.0); MCV 90.3 fL (80.0-100.0); Mean Platelet Volume 10.2; RBC 2.86 m/uL (4.30-5.90); RDW 16.3 % (11.5-15.5); WBC 10.2 k/uL (3.8-10.6)
[2024-04-06 16:27] LABS: Platelet Count 57 k/uL (150-450)
[2024-04-06] MEDS: FUROSEMIDE 10 MG/ML 4 ML VIAL IV STA (16:45)
[2024-04-06 21:06] LABS: Glucose,Whole Blood 283 mg/dL (70-110)
--- NOTE | 2024-04-06 21:53 | P.CONS ---
History of Present Illness - Reason for Consult Consult date: 04/06/24 coagulopathy Requesting physician: Jeb Lui - Chief Complaint rectal bleeding - History of Present Illness This is a 73-year-old white male with a significant history of severe COPD, tobacco dependance, abd aortic anuerysm with aortoiliac stents. Consult placed f or coagulopathy. Patent presented to the ER for lightheadedness and rectal bleeding. Patient is intubated so HPI unable to be obtained. Upon review of notes it appears patient had been experiencing diarrhea, and had bright red stools, and associated dizziness and syncopal episode. CT chest abdomen pelvis showed resolution of the large spiculated mass seen on prior CT chest dated 03/05/2022, been replaced by severe pleural parenchymal scarring but with no suspicious mass. Stable 4.2 x 4.3 cm aneurysmal dilatation ascending thoracic aorta. Extravasation of contrast into the right colon and transverse colon consistent with acute hemorrhage/GI bleed. Aortic stent graft with large [place] aneurysm. No evidence of endoleak. Patient underwent exploratory laparotomy on 04/04/2024 with subtotal colectomy with end ileostomy. He then underwent EGD on 04/05 which showed old blood noted in the stomach and duodenum. Gastritis and duodenitis noted. Some fresh blood seen in the third portion of the duodenum and suctioning was being performed with no obvious mucosal lesion or ulcers identified. Concern for small bowel source of bleeding and rule out aortoenteric fistula. Vascular surgery has been consulted was placed and CTA of the abdomen was obtained which showed postsurgical changes within the abdomen with free air. Aortobiiliac endograft changes. Size of the excluded aneurysm measures up to 6.7 cm. Additional stenting within the aneurysmal right common iliac artery measuring up to 2.5 cm with additional stenting of the left common iliac artery. Hypodensity within the right iliac l imb. No evidence of active intraluminal hemorrhage. Periorbital edema in the liver. Patient has been following with pulmonology lung mass and PET/CT obtained on 12/27/2023 was reviewed which showed focal areas of increased uptake within the right upper lobe masslike density. Scattered hilar and mediastinal areas of uptake suspicious. Right supraclavicular and left neck foci of uptake. Mild uptake within the right mid and lower lung [place] which favor mild inflammatory changes. Upon review of images, appeared to have uptake with abdomen, possibly in small bowel which was not reported on interpretation. On admit CBC showed WBC 10.3, hemoglobin 8.7, platelets 77,000. Patient is s/p 4 units PRBC since admit. Today hemoglobin noted at 6.4, platelets 56,000 and is receiving his 5th unit of blood. Creatinine 2.03, GFR 31. On admit PT/INR was within normal limits. Today PT 17.9, INR 1.8, fibrinogen 217. Patient has also had a significant increase in LFTs with AST 2789, ALT 2564. Bilirubin normal at 0.5. At today's visit, primary RN reported that patient's DPOA stated patient has had a 30 pound weight loss. There is coffee-ground emesis within OG tube as well as peter blood within ostomy. Review of Systems 10 point ROS is negative except as stated in the HPI Past Medical History Past Medical History: COPD, GERD/Reflux, Myocardial Infarction ([place]), Pneumonia, Vascular Disorder Additional Past Medical History / Comment(s): Bronchitis, past respiratory failure, PVD, pt states [place] per EKG, beginnings of bilateral cataracts. Mass on lung, agent orange from [place]. Last Myocardial Infarction Date:: 2009 per EKG History of Any Multi-Drug Resistant Organisms: None Reported Past Surgical History: Appendectomy Additional Past Surgical History / Comment(s): Endovascular aortic repair, L iliac stent, colonoscopy Past Anesthesia/Blood Transfusion Reactions: No Reported Reaction Additional Past Anesthesia/Blood Transfusion Reaction / Comm: no blood transfusion Past Psychological History: Anxiety, Depression Smoking Status: Current every day smoker Past Alcohol Use History: None Reported Past Drug Use History: None Reported - Past Family History Mother Family Medical History: Liver Disease Additional Family Medical History / Comment(s): liver cirrhosis Brother(s) Family Medical History: Vascular Disorder Father Family Medical History: Myocardial Infarction ([place]) Medications and Allergies Home Medications Medication Instructions Recorded Confirmed Type Aspirin EC [Ecotrin Low Dose] 81 mg PO DAILY 12/11/19 04/04/24 History Albuterol Inhaler [Ventolin Hfa 2 puff INHALATION RT-Q6H PRN 04/04/24 04/04/24 History Inhaler] Atorvastatin [Lipitor] 40 mg PO HS 04/04/24 04/04/24 History Formoterol Fumarate [Perforomist] 20 mcg INHALATION RT-BID 04/04/24 04/04/24 History Ipratropium Nebulized [Atrovent 0.5 mg INHALATION RT-QID PRN 04/04/24 04/04/24 History Nebulized 0.2 MG/ML] Ketoconazole 2% Cream [Nizoral 2%] 1 applic TOPICAL DAILY PRN 04/04/24 04/04/24 History Mometasone/Formoterol [Dulera 200 2 puff INHALATION RT-BID 04/04/24 04/04/24 History Mcg-5 Mcg Inhaler] Omeprazole [PriLOSEC] 20 mg PO DAILY 04/04/24 04/04/24 History Tiotropium 2.5 Mcg/Puff [Spiriva 2 puff INHALATION RT-DAILY 04/04/24 04/04/24 History Respimat 2.5 Mcg] lisinopriL [Zestril] 10 mg PO DAILY 04/04/24 04/04/24 History predniSONE 5 mg PO DAILY 04/04/24 04/04/24 History traMADol HCL 100 mg PO Q8H PRN 04/04/24 04/04/24 History Allergies Allergy/AdvReac Type Severity Reaction Status Date / Time bee venom protein (honey bee) Allergy Unknown Verified 04/04/24 16:10 tape AdvReac Rash/Hives Uncoded 04/04/24 16:10 Physical Exam Vitals: Vital Signs Temp Pulse Resp BP Pulse Ox FiO2 04/06/24 12:22 101 H 22 99 04/06/24 12:18 97.5 F L 101 H 22 116/51 98 04/06/24 12:04 98 04/06/24 12:00 97.5 F L 99 22 99 40 04/06/24 11:53 98 04/06/24 11:49 40 04/06/24 11:47 98 22 119/54 9 L 04/06/24 11:45 99 22 99 04/06/24 11:34 101 H 22 113/53 04/06/24 11:30 100 22 97 04/06/24 11:15 100 22 98 04/06/24 11:14 100 22 117/50 04/06/24 11:00 100 22 96 40 04/06/24 10:45 99 22 96 04/06/24 10:30 99 22 98 04/06/24 10:15 100 22 97 04/06/24 10:00 99 22 99 40 04/06/24 09:45 100 20 99 04/06/24 09:30 99 20 98 04/06/24 09:15 98 20 100 04/06/24 09:14 100 04/06/24 09:05 102 H 04/06/24 09:04 96.4 F L 98 20 103/51 99 04/06/24 09:00 98 20 100 40 04/06/24 08:54 96 04/06/24 08:45 98 20 100 04/06/24 08:44 40 04/06/24 08:30 98 20 100 04/06/24 08:15 98 20 100 04/06/24 08:00 95.9 F L 98 20 100 40 04/06/24 07:45 98 20 99 04/06/24 07:30 99 20 99 04/06/24 07:15 99 20 99 04/06/24 07:00 101 H 20 99 04/06/24 06:56 35.5 F L 100 20 103/52 04/06/24 06:46 97.9 F 101 H 20 102/48 04/06/24 06:45 101 H 20 98 04/06/24 06:30 100 20 95 04/06/24 06:15 100 20 99 04/06/24 06:00 98 20 97 04/06/24 05:45 96 20 97 04/06/24 05:30 20 04/06/24 05:15 20 04/06/24 05:00 96 20 100 04/06/24 04:45 95 20 99 04/06/24 04:30 97 20 87 L 04/06/24 04:17 40 04/06/24 04:15 103 H 20 100 04/06/24 04:00 97.9 F 104 H 20 100 40 04/06/24 03:45 104 H 20 100 04/06/24 03:30 104 H 20 100 04/06/24 03:15 104 H 20 100 04/06/24 03:00 104 H 20 100 04/06/24 02:45 104 H 20 100 04/06/24 02:30 104 H 20 100 04/06/24 02:15 105 H 20 100 04/06/24 02:00 104 H 20 92 L 04/06/24 01:45 104 H 20 93 L 04/06/24 01:30 104 H 20 94 L 04/06/24 01:27 40 04/06/24 01:15 105 H 20 93 L 04/06/24 01:00 104 H 20 94 L 04/06/24 00:45 104 H 20 04/06/24 00:30 104 H 20 04/06/24 00:15 104 H 20 04/06/24 00:00 98.1 F 103 H 20 99 40 04/05/24 23:45 105 H 20 04/05/24 23:30 105 H 20 98 04/05/24 23:15 105 H 20 99 04/05/24 23:00 105 H 20 04/05/24 22:45 104 H 20 98 04/05/24 22:30 105 H 20 99 04/05/24 22:15 105 H 20 04/05/24 22:00 106 H 20 04/05/24 21:45 105 H 20 04/05/24 21:30 105 H 20 04/05/24 21:15 106 H 20 99 04/05/24 21:00 105 H 20 98 04/05/24 20:45 106 H 20 100 04/05/24 20:31 106 H 04/05/24 20:30 106 H 20 100 04/05/24 20:16 105 H 04/05/24 20:15 105 H 20 100 04/05/24 20:14 40 04/05/24 20:00 98.6 F 105 H 20 100 40 04/05/24 19:45 106 H 20 100 04/05/24 19:30 106 H 20 100 04/05/24 19:15 107 H 20 04/05/24 19:00 106 H 20 100 04/05/24 18:45 110 H 20 96 04/05/24 18:30 110 H 20 100 04/05/24 18:15 112 H 20 93 L 04/05/24 18:00 112 H 20 99 04/05/24 17:45 112 H 20 04/05/24 17:30 111 H 20 04/05/24 17:15 110 H 20 100 04/05/24 17:00 108 H 20 04/05/24 16:45 107 H 18 95 04/05/24 16:30 105 H 20 99 04/05/24 16:23 106 H 04/05/24 16:15 105 H 20 99 04/05/24 16:14 105 H 04/05/24 16:10 40 04/05/24 16:00 107 H 20 100 40 04/05/24 15:45 105 H 20 04/05/24 15:30 110 H 20 04/05/24 15:15 111 H 19 100 04/05/24 15:00 112 H 19 99 04/05/24 14:45 111 H 21 04/05/24 14:30 111 H 21 04/05/24 14:15 111 H 21 04/05/24 14:00 111 H 22 99 04/05/24 13:45 111 H 22 04/05/24 13:30 112 H 21 04/05/24 13:15 112 H 04/05/24 13:00 112 H 21 Intake and Output 04/05/24 04/06/24 04/06/24 22:59 06:59 14:59 Intake Total 2273.160 2753.268 1502.238 Output Total 555 430 150 Balance 1146.535 9004.268 1352.238 Intake: IV 2100 2100 595 Dextrose 5% in Water 1, 1000 1000 475 000 ml @ 50 mls/hr IV . Q23H BOBBY with Sodium Bicarb (1 Meq/ml) 150 ml Rx#:[id number] Piperacillin-Tazobactam 3 100 100 .375 gm In Sodium Chloride 0.9% 100 ml @ 25 mls/hr IVPB Q8H BOBBY Rx#: [id number] Sodium Chloride 0.9% 1, 1000 1000 000 ml @ 999 mls/hr IV . Q1H1M ONE Rx#:[id number] TPN 120 Intake, IV Titration 173.160 653.268 238.238 Amount Cisatracurium 200 mg In 15.008 92.913 60.43 Sodium Chloride 0.9% 180 ml @ 1 MCG/KG/MIN 4.002 mls/hr IV .Q24H BOBBY Rx#: [id number] Norepinephrine 4 mg In 150.976 321.708 92.385 Sodium Chloride 0.9% 250 ml @ 0.03 MCG/KG/MIN 7. 258 mls/hr IV .Q24H BOBBY Rx#:[id number] Vasopressin 60 unit In 45.823 6.044 Sodium Chloride 0.9% 150 ml @ 0.03 UNITS/MIN 4.59 mls/hr IV .Q24H BOBBY Rx#: [id number] propofoL 1,000 mg In 7.176 192.824 79.379 Empty Bag 1 bag @ 15 MCG/ KG/MIN 5.715 mls/hr IV . [id number] BOBBY Rx#:[id number] Blood Product 0 669 Unit 0 Ffp 24 Cpd Unit 359 [id number] Rc As-1 Unit 0 310 [id number] Output: Urine 205 270 150 Stool 350 160 Other: Voiding Method Indwelling Catheter Indwelling Catheter Indwelling Catheter Weight 76.3 kg ABP, PAP, CO, CI - Last 8 Hours Arterial Blood Pressure 118/53 Arterial Blood Pressure 113/53 Arterial Blood Pressure 110/53 Arterial Blood Pressure 114/54 Arterial Blood Pressure 121/56 Arterial Blood Pressure 118/57 Arterial Blood Pressure 112/55 Arterial Blood Pressure 113/54 Arterial Blood Pressure 116/60 Arterial Blood Pressure 105/54 Arterial Blood Pressure 100/51 Arterial Blood Pressure 102/50 Arterial Blood Pressure 94/48 Arterial Blood Pressure 108/51 Arterial Blood Pressure 105/51 Arterial Blood Pressure 109/53 Arterial Blood Pressure 102/44 Arterial Blood Pressure 114/53 Arterial Blood Pressure 102/50 Arterial Blood Pressure 108/51 Arterial Blood Pressure 101/48 Arterial Blood Pressure 101/50 Arterial Blood Pressure 110/50 Arterial Blood Pressure 95/45 Arterial Blood Pressure 112/49 Arterial Blood Pressure 133/53 Arterial Blood Pressure 162/57 Arterial Blood Pressure 153/52 - Constitutional General appearance: no acute distress - Respiratory ventilated breath sounds - Gastrointestinal ostomy in situ with peter stool noted - Integumentary Integumentary: no cyanotic - Neurologic sedated Results CBC & Chem 7: 04/06/24 16:14 04/06/24 04:50 Labs: Abnormal Lab Results - Last 24 Hours (Table) 04/04/24 04/05/24 04/05/24 Range/Units 16:35 04:06 16:05 WBC 11.8 H (3.8-10.6) k/uL RBC 2.70 L (4.30-5.90) m/uL Hgb 8.6 L (13.0-17.5) gm/dL Hct 25.6 L (39.0-53.0) % RDW 16.1 H (11.5-15.5) % Plt Count 78 L (150-450) k/uL PT (10.0-12.5) sec INR (<1.2) APTT (22.0-30.0) sec D-Dimer (<0.60) mg/L FEU ABG pH (7.35-7.45) ABG pO2 (83-108) mmHg ABG HCO3 (21-25) mmol/L Hemoglobin (13.0-17.5) gm/dL Sodium (137-145) mmol/L Potassium (3.5-5.1) mmol/L BUN (9-20) mg/dL Creatinine (0.66-1.25) mg/dL Glucose (74-99) mg/dL POC Glucose (mg/dL) (70-110) mg/dL Plasma Lactic Acid Jae (0.7-2.0) mmol/L Calcium (8.4-10.2) mg/dL Ionized Calcium Antoni (4.5-5.3) mg/dL Phosphorus (2.5-4.5) mg/dL AST (17-59) U/L ALT (4-49) U/L Alkaline Phosphatase (38-126) U/L Lactate Dehydrogenase (120-246) U/L Total Protein (6.3-8.2) g/dL Albumin 1.6 L (3.5-5.0) g/dL Crossmatch See Detail 04/05/24 04/05/24 04/05/24 Range/Units 18:19 18:21 21:41 WBC (3.8-10.6) k/uL RBC (4.30-5.90) m/uL Hgb (13.0-17.5) gm/dL Hct (39.0-53.0) % RDW (11.5-15.5) % Plt Count (150-450) k/uL PT (10.0-12.5) sec INR (<1.2) APTT (22.0-30.0) sec D-Dimer (<0.60) mg/L FEU ABG pH 7.27 L (7.35-7.45) ABG pO2 (83-108) mmHg ABG HCO3 18 L (21-25) mmol/L Hemoglobin 7.8 L (13.0-17.5) gm/dL Sodium (137-145) mmol/L Potassium (3.5-5.1) mmol/L BUN (9-20) mg/dL Creatinine (0.66-1.25) mg/dL Glucose (74-99) mg/dL POC Glucose (mg/dL) 248 H 329 H (70-110) mg/dL Plasma Lactic Acid Jae (0.7-2.0) mmol/L Calcium (8.4-10.2) mg/dL Ionized Calcium Antoni (4.5-5.3) mg/dL Phosphorus (2.5-4.5) mg/dL AST (17-59) U/L ALT (4-49) U/L Alkaline Phosphatase (38-126) U/L Lactate Dehydrogenase (120-246) U/L Total Protein (6.3-8.2) g/dL Albumin (3.5-5.0) g/dL Crossmatch 04/05/24 04/05/24 04/05/24 Range/Units 21:50 23:05 23:20 WBC 12.8 H (3.8-10.6) k/uL RBC 2.36 L (4.30-5.90) m/uL Hgb 7.5 L (13.0-17.5) gm/dL Hct 22.9 L (39.0-53.0) % RDW 15.8 H (11.5-15.5) % Plt Count 77 L (150-450) k/uL PT (10.0-12.5) sec INR (<1.2) APTT (22.0-30.0) sec D-Dimer (<0.60) mg/L FEU ABG pH (7.35-7.45) ABG pO2 (83-108) mmHg ABG HCO3 (21-25) mmol/L Hemoglobin (13.0-17.5) gm/dL Sodium 134 L (137-145) mmol/L Potassium 5.2 H (3.5-5.1) mmol/L BUN 49 H (9-20) mg/dL Creatinine 2.01 H (0.66-1.25) mg/dL Glucose 299 H (74-99) mg/dL POC Glucose (mg/dL) 111 H (70-110) mg/dL Plasma Lactic Acid Jae (0.7-2.0) mmol/L Calcium 7.0 L (8.4-10.2) mg/dL Ionized Calcium Antoni (4.5-5.3) mg/dL Phosphorus (2.5-4.5) mg/dL AST (17-59) U/L ALT (4-49) U/L Alkaline Phosphatase (38-126) U/L Lactate Dehydrogenase (120-246) U/L Total Protein (6.3-8.2) g/dL Albumin (3.5-5.0) g/dL Crossmatch 04/05/24 04/05/24 04/06/24 Range/Units 23:20 23:22 02:12 WBC 13.1 H (3.8-10.6) k/uL RBC 2.33 L (4.30-5.90) m/uL Hgb 7.4 L (13.0-17.5) gm/dL Hct 22.7 L (39.0-53.0) % RDW 15.8 H (11.5-15.5) % Plt Count 71 L (150-450) k/uL PT (10.0-12.5) sec INR (<1.2) APTT (22.0-30.0) sec D-Dimer (<0.60) mg/L FEU ABG pH (7.35-7.45) ABG pO2 (83-108) mmHg ABG HCO3 (21-25) mmol/L Hemoglobin (13.0-17.5) gm/dL Sodium (137-145) mmol/L Potassium (3.5-5.1) mmol/L BUN (9-20) mg/dL Creatinine (0.66-1.25) mg/dL Glucose (74-99) mg/dL POC Glucose (mg/dL) 373 H (70-110) mg/dL Plasma Lactic Acid Jae 7.2 H* (0.7-2.0) mmol/L Calcium (8.4-10.2) mg/dL Ionized Calcium Antoni (4.5-5.3) mg/dL Phosphorus (2.5-4.5) mg/dL AST (17-59) U/L ALT (4-49) U/L Alkaline Phosphatase (38-126) U/L Lactate Dehydrogenase (120-246) U/L Total Protein (6.3-8.2) g/dL Albumin (3.5-5.0) g/dL Crossmatch 04/06/24 04/06/24 04/06/24 Range/Units 04:40 04:50 04:50 WBC (3.8-10.6) k/uL RBC 1.94 L (4.30-5.90) m/uL Hgb 6.4 L* (13.0-17.5) gm/dL Hct 18.5 L* (39.0-53.0) % RDW 16.2 H (11.5-15.5) % Plt Count 56 L (150-450) k/uL PT (10.0-12.5) sec INR (<1.2) APTT (22.0-30.0) sec D-Dimer (<0.60) mg/L FEU ABG pH 7.31 L (7.35-7.45) ABG pO2 74 L (83-108) mmHg ABG HCO3 (21-25) mmol/L Hemoglobin 6.4 L* (13.0-17.5) gm/dL Sodium 136 L (137-145) mmol/L Potassium (3.5-5.1) mmol/L BUN 52 H (9-20) mg/dL Creatinine 2.03 H (0.66-1.25) mg/dL Glucose 323 H (74-99) mg/dL POC Glucose (mg/dL) (70-110) mg/dL Plasma Lactic Acid Jae (0.7-2.0) mmol/L Calcium 6.6 L (8.4-10.2) mg/dL Ionized Calcium Antoni (4.5-5.3) mg/dL Phosphorus 5.3 H (2.5-4.5) mg/dL AST 2789 H (17-59) U/L ALT 2564 H (4-49) U/L Alkaline Phosphatase 26 L (38-126) U/L Lactate Dehydrogenase (120-246) U/L Total Protein 2.5 L (6.3-8.2) g/dL Albumin 1.2 L (3.5-5.0) g/dL Crossmatch 04/06/24 04/06/24 04/06/24 Range/Units 04:50 07:50 07:50 WBC (3.8-10.6) k/uL RBC (4.30-5.90) m/uL Hgb (13.0-17.5) gm/dL Hct (39.0-53.0) % RDW (11.5-15.5) % Plt Count (150-450) k/uL PT 17.9 H (10.0-12.5) sec INR 1.8 H (<1.2) APTT (22.0-30.0) sec D-Dimer (<0.60) mg/L FEU ABG pH (7.35-7.45) ABG pO2 (83-108) mmHg ABG HCO3 (21-25) mmol/L Hemoglobin (13.0-17.5) gm/dL Sodium (137-145) mmol/L Potassium (3.5-5.1) mmol/L BUN (9-20) mg/dL Creatinine (0.66-1.25) mg/dL Glucose (74-99) mg/dL POC Glucose (mg/dL) (70-110) mg/dL Plasma Lactic Acid Jae 4.1 H* (0.7-2.0) mmol/L Calcium (8.4-10.2) mg/dL Ionized Calcium Antoni 4.2 L (4.5-5.3) mg/dL Phosphorus (2.5-4.5) mg/dL AST (17-59) U/L ALT (4-49) U/L Alkaline Phosphatase (38-126) U/L Lactate Dehydrogenase (120-246) U/L Total Protein (6.3-8.2) g/dL Albumin (3.5-5.0) g/dL Crossmatch 04/06/24 04/06/24 04/06/24 Range/Units 07:50 07:55 10:24 WBC (3.8-10.6) k/uL RBC (4.30-5.90) m/uL Hgb (13.0-17.5) gm/dL Hct (39.0-53.0) % RDW (11.5-15.5) % Plt Count (150-450) k/uL PT (10.0-12.5) sec INR (<1.2) APTT 43.7 H (22.0-30.0) sec D-Dimer 19.58 H (<0.60) mg/L FEU ABG pH (7.35-7.45) ABG pO2 (83-108) mmHg ABG HCO3 (21-25) mmol/L Hemoglobin (13.0-17.5) gm/dL Sodium (137-145) mmol/L Potassium (3.5-5.1) mmol/L BUN (9-20) mg/dL Creatinine (0.66-1.25) mg/dL Glucose (74-99) mg/dL POC Glucose (mg/dL) 358 H (70-110) mg/dL Plasma Lactic Acid Jae (0.7-2.0) mmol/L Calcium (8.4-10.2) mg/dL Ionized Calcium Antoni (4.5-5.3) mg/dL Phosphorus (2.5-4.5) mg/dL AST (17-59) U/L ALT (4-49) U/L Alkaline Phosphatase (38-126) U/L Lactate Dehydrogenase 1097 H (120-246) U/L Total Protein (6.3-8.2) g/dL Albumin (3.5-5.0) g/dL Crossmatch 04/06/24 Range/Units 10:24 WBC 11.1 H (3.8-10.6) k/uL RBC 2.64 L (4.30-5.90) m/uL Hgb 8.3 L D (13.0-17.5) gm/dL Hct 25.1 L (39.0-53.0) % RDW 15.7 H (11.5-15.5) % Plt Count 67 L (150-450) k/uL PT (10.0-12.5) sec INR (<1.2) APTT (22.0-30.0) sec D-Dimer (<0.60) mg/L FEU ABG pH (7.35-7.45) ABG pO2 (83-108) mmHg ABG HCO3 (21-25) mmol/L Hemoglobin (13.0-17.5) gm/dL Sodium (137-145) mmol/L Potassium (3.5-5.1) mmol/L BUN (9-20) mg/dL Creatinine (0.66-1.25) mg/dL Glucose (74-99) mg/dL POC Glucose (mg/dL) (70-110) mg/dL Plasma Lactic Acid Jae (0.7-2.0) mmol/L Calcium (8.4-10.2) mg/dL Ionized Calcium Antoni (4.5-5.3) mg/dL Phosphorus (2.5-4.5) mg/dL AST (17-59) U/L ALT (4-49) U/L Alkaline Phosphatase (38-126) U/L Lactate Dehydrogenase (120-246) U/L Total Protein (6.3-8.2) g/dL Albumin (3.5-5.0) g/dL Crossmatch Microbiology - Last 24 Hours (Table) 04/05/24 03:59 Gram Stain - Preliminary Sputum Comments: PET CT reviewed CT scan - abdomen: report reviewed CT scan - chest: report reviewed CT scan - pelvis: report reviewed Assessment and Plan (1) Acute kidney injury Current Visit: Yes Status: Acute Priority: High Code(s): N17.9 - ACUTE KIDNEY FAILURE, UNSPECIFIED SNOMED Code(s): 45132503 (2) Elevated LFTs Current Visit: Yes Status: Acute Priority: High Code(s): R79.89 - OTHER SPECIFIED ABNORMAL FINDINGS OF BLOOD CHEMISTRY SNOMED Code(s): 411096202 (3) GI bleed Current Visit: Yes Status: Acute Priority: High Code(s): K92.2 - GASTROINTESTINAL HEMORRHAGE, UNSPECIFIED SNOMED Code(s): 23663407 (4) AAA (abdominal aortic aneurysm) Current Visit: Yes Status: Acute Priority: High Code(s): I71.4 - ABDOMINAL AORTIC ANEURYSM, WITHOUT RUPTURE * DO NOT USE * SNOMED Code(s): 376239451 (5) Coagulopathy Current Visit: Yes Status: Acute Priority: High Code(s): D68.9 - COAGULATION DEFECT, UNSPECIFIED SNOMED Code(s): 30834198 Plan: GI bleed, coagulopathy: Presented to the ER for lightheadedness and rectal bleeding. Upon review of notes it appears patient had been experiencing diarrhea, and had bright red stools, and associated dizziness and syncopal episode. -CT chest abdomen pelvis showed resolution of the large spiculated mass seen on prior CT chest dated 03/05/2022, been replaced by severe pleural parenchymal scarring but with no suspicious mass. Stable 4.2 x 4.3 cm aneurysmal dilatation ascending thoracic aorta. Extravasation of contrast into the right colon and transverse colon consistent with acute hemorrhage/GI bleed. Aortic stent graft with large [place] aneurysm. No evidence of endoleak. -Patient underwent exploratory laparotomy on 04/04/2024 with subtotal colectomy with end ileostomy. He then underwent EGD on 04/05 which showed old blood noted in the stomach and duodenum. Gastritis and duodenitis noted. Some fresh blood seen in the third portion of the duodenum and suctioning was being performed with no obvious mucosal lesion or ulcers identified. Concern for small bowel source of bleeding and rule out aortoenteric fistula. -Vascular surgery consulted -CTA of the abdomen was obtained which showed postsurgical changes within the abdomen with free air. Aortobiiliac endograft changes. Size of the excluded a neurysm measures up to 6.7 cm. Additional stenting within the aneurysmal right common iliac artery measuring up to 2.5 cm with additional stenting of the left common iliac artery. Hypodensity within the right iliac limb. No evidence of active intraluminal hemorrhage. Periorbital edema in the liver. -Patient has been following with pulmonology for previously noted lung mass and PET/CT obtained on 12/27/2023 was reviewed which showed focal areas of increased uptake within the right upper lobe masslike density. Scattered hilar and mediastinal areas of uptake suspicious. Right supraclavicular and left neck foci of uptake. Mild uptake within the right mid and lower lung [place] which favor mild inflammatory changes. Upon review of images, appeared to have uptake with abdomen, possibly in small bowel which was not reported on interpretation. -On admit CBC showed WBC 10.3, hemoglobin 8.7, platelets 77,000. Patient is s/p 4 units PRBC since admit. Today hemoglobin noted at 6.4, platelets 56,000 and is receiving his 5th unit of PRBCs -On admit PT/INR was within normal limits. Today PT 17.9, INR 1.8, fibrinogen 217. Patient has also had a significant increase in LFTs with AST 2789, ALT 2564. Bilirubin normal at 0.5. -Coagulopathy likely r/t shock liver due to GI hemorrhage -Will order 1 dose of FFP. Goal of INR less than 2.0 -Coags and CBC daily -Will obtain tagged RBC scan to identify source of GI bleed. Pending results may need to be considered for endovascular coiling Case discussed with ICU team attests: I have seen and examined patient, performed H&P, developed impression and plan of care. Discussed with dictator. Agree with documentation, dictated as a scribe Time with Patient: Greater than 30
[2024-04-07] MEDS: ARTIFICIAL TEARS-HYPROMELLOSE DROPS 15 ML BTL BOTH EYES SCH (00:30)
[2024-04-07 05:37] LABS: ABG Base Excess 3.5 mmol/L; ABG HCO3 30 mmol/L (21-25); ABG Oxygen Saturation 82.5 % (94-97); ABG PCO2 54 mmHg (35-45); ABG PH 7.35 (7.35-7.45); ABG TCO2 32 mmol/L (19-24); Allen Test Performed? Yes
[2024-04-07 06:03] LABS: ABG PO2 47 mmHg (83-108)
[2024-04-07 06:50] LABS: Anisocytosis Slight; HCT 26.3 % (39.0-53.0); MCH 31.3 pg (25.0-35.0); MCHC 34.2 g/dL (31.0-37.0); MCV 91.6 fL (80.0-100.0); Mean Platelet Volume 10.3; Poikilocytosis Slight; RBC 2.87 m/uL (4.30-5.90); RDW 16.9 % (11.5-15.5); WBC 11.9 k/uL (3.8-10.6)
[2024-04-07 06:52] LABS: Platelet Count 53 k/uL (150-450)
[2024-04-07 07:02] LABS: African American GFR (CKD) 31 (>60 ml/min/1.73 sqM); Albumin 1.7 g/dL (3.5-5.0); Alkaline Phosphatase 34 U/L (38-126); Anion Gap 6 mmol/L; Blood Urea Nitrogen 70 mg/dL (9-20); Calcium 7.3 mg/dL (8.4-10.2); Carbon Dioxide 27 mmol/L (22-30); Chloride 102 mmol/L (98-107); Glucose 225 mg/dL (74-99); Magnesium 2.1 mg/dL (1.6-2.3); Non-African American GFR(CKD) 27 (>60 ml/min/1.73 sqM); Potassium 4.1 mmol/L (3.5-5.1); Sodium 135 mmol/L (137-145); Total Protein 3.4 g/dL (6.3-8.2)
--- NOTE | 2024-04-07 07:08 | P.PCN ---
Date of Procedure: 04/07/24 Preoperative Diagnosis: Hypotension and shock Postoperative Diagnosis: Hypotension and shock Procedure(s) Performed: Insertion of a right radial arterial line Indications for Procedure: Continuous blood pressure monitoring and frequent blood draws Description of Procedure: Informed consent was obtained, and a procedural timeout was performed . The patient was placed in supine position. The right radial region was prepared in a sterile fashion, and a sterile drape was applied. The right radial artery was palpated, easily cannulated, and a guidewire was placed. A Cook catheter was inserted over the guidewire, and the guidewire was removed. There was good arterial blood flow, good arterial waveform, and no complications. The line was secured with using a 3-0 silk suture.
[2024-04-07 07:11] LABS: ALT 2159 U/L (4-49); AST 1205 U/L (17-59)
[2024-04-07 07:31] LABS: Anisocytosis (M) Present; Band Neutrophils % 10 %; Lymphocytes # (M) 1.07 k/uL (1.0-4.8); Metamyelocytes # (M) 0.48 k/uL (0); Metamyelocytes % 4 %; Myelocytes # (M) 0.12 k/uL (0); Myelocytes % 1 %; Neutrophils % (M) 73 %; Nucleated Red Blood Cells 0 /100 WBC (0-0); Total Cells Counted 200
--- NOTE | 2024-04-07 08:14 | XR ---
EXAMINATION TYPE: XR chest 1V portable DATE OF EXAM: 04/07/2024 COMPARISON: 04/05/2024 HISTORY: SOB, Follow Up FINDINGS: Indwelling tubes and catheters are unchanged. Increased opacity left lower lobe may reflect atelectasis and/or infiltrate with small effusion. Incr easing right apical density noted as well. Stable appearance of the cardio-mediastinal structures at this time. IMPRESSION: 1. Increased opacity left lower lobe may reflect atelectasis and/or infiltrate with small effusion. Increasing right apical density noted as well.
[2024-04-07 10:38] LABS: Glucose,Whole Blood 256 mg/dL (70-110)
[2024-04-07 13:12] LABS: Glucose,Whole Blood 186 mg/dL (70-110)
--- NOTE | 2024-04-07 13:16 | P.PN ---
Subjective Progress Note Date: 04/07/24 Principal diagnosis: Acute lower GI bleeding This is a 73-year-old white male familiar to my service, known history of severe COPD, patient was seen in the ER today, he was brought in with feeling lightheaded and dizzy and diaphoresis. Apparently since earlier today the patient has been experiencing diarrhea and he may have had according to him a syncopal episode. Does not believe that he was out for very long, patient fell, sustained a small abrasion on the right arm and left knee, patient has also been complaining of bright red blood per rectum baseline hemoglobin was 12.1 at 11:15 AM, follow-up hemoglobin at 3 PM was down to 9.4 in addition to her GI symptoms, patient is complaining of coughing wheezing and shortness of breath. GI has been consulted, I saw the patient done in the ER, and I recommended admitting the patient to the ICU. In the meantime the patient may need to have further evaluation for his GI bleeding, he will need to be placed on bronchodilators for his COPD, and will need to be closely monitored, hence I am recommending ICU admission. Patient is known to have history of severe COPD, chronic tobacco dependence, history of abdominal aortic aneurysm and had previous aortoiliac stents, he is also known to have history of hypertension, alcoholism, and his primary care physician is at the [facility]. Baseline FEV1 is in the range of 52%, patient is known to have history of chronic right apical scarring, underlying malignancy is not entirely ruled out, patient is being followed closely on outpatient basis for his abnormal CT of the chest. Chest x-ray on this admission showed mostly right apical scarring, chronic, and evidence of C OPD, otherwise no evidence of acute process. CT of the head and cervical spine, showed no acute intracranial process. Patient evaluated today on 04/05/2024, patient was admitted yesterday to the ICU, and shortly after he arrived to the ICU, his GI bleeding became extremely more profound. Surgery was consulted by gastroenterology, and the patient underwent exploratory laparotomy and subtotal colectomy with end ileostomy. Patient was brought back to the ICU last night on mechanical ventilation, remains intubated mechanically ventilated. He is now on assist-control rate of 16 tidal volume 500 FiO2 50% and PEEP of 5. ABG showed a pO2 of 123 pCO2 41 pH of 7.20, patient remains on bicarb drip. His FiO2 was cut down to 40% tidal volume cut down to 450 and Titrate at 16. Patient is requiring norepinephrine at 0.2 mcg/kg/min he is also on IV fluid at 75 cc/h propofol at 20 mcg/kg/min D5W with 3 A of bicarb running at 125 cc/h patient is empirically on Zosyn, received a total of 4 units of packed RBCs since admission his hemoglobin today is 8.7. Urine output is marginal, 10 cc/h, more fluid boluses were given. Most recent ABG showed a pO2 of 129 pCO2 43 and pH of 7.18 hence more sodium bicarb was given. WBC count is 8.0 hemoglobin 8.3 platelets are 73,000 sodium 128 potassium 5.1 chloride 110 bicarb is 16 BUN is 38 creatinine 0.95. Patient was evaluated today on 04/06/2024, remains in the ICU, intubated and mechanically ventilated. Patient is on assist-control rate of 20 tidal volume 450 FiO2 40% and PEEP of 5 ABG showed a pO2 of 74 pCO2 45 pH of 7.31. Patient required significant amount of fluids yesterday for low blood pressure and he is still requiring norepinephrine at 0.11 mcg/kg/min. Received a total of 5 units of packed RBCs since admission, his 6 unit will be given today for a hemoglobin of 6.4. Patient also received fresh frozen plasma as ordered by oncology. He seems to have elevated PTT, elevated PTT, and low platelets. Last night the patient was becoming more and more agitated and desaturating with his extreme agitation, hence added to propofol 50 mcg/kg/min I added Nimbex he is now on Nimbex drip at 2 mg/kg/min he is also on D5W with 3 A of bicarb running at 125 cc/h and this was cut down to 50 cc/h since his bicarb is improved today. Chilo woods is on TPN at 30 mL/h. And is also on fentanyl at 0.25 mcg/kg/h. Urine output is marginal about 10 to 20 cc/h being followed by nephrology. Patient is not receiving any heparin or any subcu heparin. Obviously the patient is critically ill, and his still receiving antibiotics.Zosyn for presumptive abdominal sepsis. Patient is also on methylprednisolone for his underlying COPD at 40 mg IV push every 8 hours. Patient has been seen by many consultants including general surgery, vascular surgery, hematology, nephrology, hematology seems to be concerned about possible ongoing blood loss, and recommending a tagged RBC study. Seen and evaluated today on 04/07/2024, patient remains in the ICU, critically ill. Remains intubated and mechanically ventilated, he is on assist-control rate of 22 tidal volume 450 FiO2 40% but this was increased up to 100% PEEP of 5 increased up to PEEP of 10. ABG earlier on 40% showed a pO2 of 47 pCO2 54 pH of 7.35, hands changes were made with mechanical ventilation with rate increased up to 24 PEEP increased up to 10 and FiO2 increased up to 100%. Patient remains on Nimbex remains on D5W with 3 A of bicarb at 25 cc/h, this will be discontinued today .remains on norepinephrine at 0.04 TPN at 85 mL/h propofol 50 mcg/kg/min vasopressin at 0.03 units/min. Hemoglobin today is 9, patient received a total of 6 units of packed RBCs since admission. Sputum is positive for Pseudomonas, remind you patient is on Zosyn. There is negative output from the ileostomy. Patient remains critically ill. Chest x-ray showed chronic right upper lobe changes, increased opacity in the left lower lobe, consistent with atelectasis, and/or possible infiltrate/pneumonia. Patient is empirically on antibiotics. WBC count today is 11.9 hemoglobin is 9, basic metabolic profile is normal bicarb is 27 BUN is 70 creatinine 2.33 Objective - Vital Signs Vital signs: Vital Signs Temp 98.4 F 04/07/24 07:15 Pulse 98 04/07/24 12:15 Resp 22 04/07/24 11:00 BP 91/53 04/07/24 11:00 Pulse Ox 100 04/07/24 11:00 FiO2 90 04/07/24 12:22 Intake & Output 04/06/24 04/07/24 04/07/24 18:59 06:59 18:59 Intake Total 2857.642 2245.730 1127.646 Output Total 415 1445 165 Balance 2442.642 800.730 962.646 Weight 81.7 kg Intake: IV 1210 1820 775 Dextrose 5% in Water 1, 825 600 250 000 ml @ 50 mls/hr IV . Q23H [facility] with Sodium Bicarb (1 Meq/ml) 150 ml Rx#:[id number] Piperacillin-Tazobactam 3 200 100 .375 gm In Sodium Chloride 0.9% 100 ml @ 25 mls/hr IVPB Q8H [facility] Rx#: [id number] TPN 385 1020 425 Intake, IV Titration 689.642 425.730 352.646 Amount Cisatracurium 200 mg In 60.43 188.894 Sodium Chloride 0.9% 180 ml @ 1 MCG/KG/MIN 4.002 mls/hr IV .Q24H [facility] Rx#: [id number] Mvi, Adult No.4 with Vit 248.5 K 10 ml Trace (Conc-1Ml/ Dose) 1 ml Sodium Acetate 40 meq Magnesium Sulfate gm 1 gm Calcium Gluconate 1 gm Potassium Acetate 10 meq In Amino Acid 5%-D15w 1,000 ml @ 85 mls/hr IV .BY DURATION [facility] Rx#:[id number] Norepinephrine 4 mg In 196.541 149.844 63.752 Sodium Chloride 0.9% 250 ml @ 0.03 MCG/KG/MIN 7. 258 mls/hr IV .Q24H [facility] Rx#:[id number] Vasopressin 60 unit In 6.044 0 Sodium Chloride 0.9% 150 ml @ 0.03 UNITS/MIN 4.59 mls/hr IV .Q24H [facility] Rx#: [id number] propofoL 1,000 mg In 178.127 275.886 100 Empty Bag 1 bag @ 15 MCG/ KG/MIN 5.715 mls/hr IV . [id number] [facility] Rx#:[id number] Blood Product 958 Ffp 24 Cpd Unit 359 [id number] As-1 Unit 310 [id number] Pheresis 2 As3 Unit 289 [id number] Output: Urine 415 1285 165 Stool 160 Other: Voiding Method Indwelling Catheter Indwelling Catheter ABP, PAP, CO, CI - Last Documented Arterial Blood Pressure 84/48 - Exam GENERAL EXAM: Reveals 73-year-old white male, intubated and mechanically ventilated. Sedated and paralyzed HEAD: Normocephalic and atraumatic, endotracheal tube and nasogastric tube intact. EYES: Normal reaction of pupils, equal size. Pale conjunctivae, nonicteric NOSE: Clear with pink turbinates. THROAT: No erythema or exudates. NECK: No masses, no JVD. CHEST: No chest wall deformity. LUNGS: Diminished breath sound crackles at the bases with some wheezing CVS: S1 and S2 normal with no audible murmur, regular rhythm. No extra heart sounds ABDOMEN: Postsurgical, ileostomy is noted dark remains dark, and hardly any output from the ileostomy this is being followed by surgery. SKIN: No rashes CENTRAL NERVOUS SYSTEM: Not assessed patient is sedated, on propofol and Nimbex EXTREMITIES: There is no peripheral edema, clubbing, or cyanosis. Peripheral pulses are intact. - Labs CBC & Chem 7: 04/07/24 06:20 04/07/24 06:20 Labs: Abnormal Lab Results - Last 24 Hours (Table) 04/04/24 04/06/24 04/06/24 Range/Units 16:35 14:12 14:15 WBC (3.8-10.6) k/uL RBC (4.30-5.90) m/uL Hgb (13.0-17.5) gm/dL Hct (39.0-53.0) % RDW (11.5-15.5) % Plt Count (150-450) k/uL Neutrophils # (Manual) (1.3-7.7) k/uL Metamyelocytes # (Man) (0) k/uL Myelocytes # (Manual) (0) k/uL PT (10.0-12.5) sec INR (<1.2) APTT (22.0-30.0) sec ABG pCO2 (35-45) mmHg ABG pO2 (83-108) mmHg ABG HCO3 (21-25) mmol/L ABG Total CO2 (19-24) mmol/L ABG O2 Saturation (94-97) % Hemoglobin (13.0-17.5) gm/dL Sodium (137-145) mmol/L BUN (9-20) mg/dL Creatinine (0.66-1.25) mg/dL Glucose (74-99) mg/dL POC Glucose (mg/dL) 257 H (70-110) mg/dL Plasma Lactic Acid Jae 2.8 H* (0.7-2.0) mmol/L Calcium (8.4-10.2) mg/dL Phosphorus (2.5-4.5) mg/dL AST (17-59) U/L ALT (4-49) U/L Alkaline Phosphatase (38-126) U/L Total Protein (6.3-8.2) g/dL Albumin (3.5-5.0) g/dL Crossmatch See Detail 04/06/24 04/06/24 04/06/24 Range/Units 14:15 16:13 16:14 WBC (3.8-10.6) k/uL RBC 2.86 L (4.30-5.90) m/uL Hgb 8.9 L (13.0-17.5) gm/dL Hct 25.8 L (39.0-53.0) % RDW 16.3 H (11.5-15.5) % Plt Count 57 L (150-450) k/uL Neutrophils # (Manual) (1.3-7.7) k/uL Metamyelocytes # (Man) (0) k/uL Myelocytes # (Manual) (0) k/uL PT 14.6 H (10.0-12.5) sec INR 1.4 H (<1.2) APTT 34.8 H (22.0-30.0) sec ABG pCO2 (35-45) mmHg ABG pO2 (83-108) mmHg ABG HCO3 (21-25) mmol/L ABG Total CO2 (19-24) mmol/L ABG O2 Saturation (94-97) % Hemoglobin (13.0-17.5) gm/dL Sodium (137-145) mmol/L BUN (9-20) mg/dL Creatinine (0.66-1.25) mg/dL Glucose (74-99) mg/dL POC Glucose (mg/dL) 229 H (70-110) mg/dL Plasma Lactic Acid Jae (0.7-2.0) mmol/L Calcium (8.4-10.2) mg/dL Phosphorus (2.5-4.5) mg/dL AST (17-59) U/L ALT (4-49) U/L Alkaline Phosphatase (38-126) U/L Total Protein (6.3-8.2) g/dL Albumin (3.5-5.0) g/dL Crossmatch 04/06/24 04/07/24 04/07/24 Range/Units 21:03 05:34 06:20 WBC (3.8-10.6) k/uL RBC (4.30-5.90) m/uL Hgb (13.0-17.5) gm/dL Hct (39.0-53.0) % RDW (11.5-15.5) % Plt Count (150-450) k/uL Neutrophils # (Manual) (1.3-7.7) k/uL Metamyelocytes # (Man) (0) k/uL Myelocytes # (Manual) (0) k/uL PT (10.0-12.5) sec INR (<1.2) APTT (22.0-30.0) sec ABG pCO2 54 H (35-45) mmHg ABG pO2 47 L* (83-108) mmHg ABG HCO3 30 H (21-25) mmol/L ABG Total CO2 32 H (19-24) mmol/L ABG O2 Saturation 82.5 L (94-97) % Hemoglobin 9.4 L (13.0-17.5) gm/dL Sodium 135 L (137-145) mmol/L BUN 70 H (9-20) mg/dL Creatinine 2.33 H (0.66-1.25) mg/dL Glucose 225 H (74-99) mg/dL POC Glucose (mg/dL) 283 H (70-110) mg/dL Plasma Lactic Acid Jae (0.7-2.0) mmol/L Calcium 7.3 L (8.4-10.2) mg/dL Phosphorus 5.0 H (2.5-4.5) mg/dL AST 1205 H (17-59) U/L ALT 2159 H (4-49) U/L Alkaline Phosphatase 34 L (38-126) U/L Total Protein 3.4 L (6.3-8.2) g/dL Albumin 1.7 L (3.5-5.0) g/dL Crossmatch 24 04/07/24 Range/Units 06:20 10:37 WBC 11.9 H (3.8-10.6) k/uL RBC 2.87 L (4.30-5.90) m/uL Hgb 9.0 L (13.0-17.5) gm/dL Hct 26.3 L (39.0-53.0) % RDW 16.9 H (11.5-15.5) % Plt Count 53 L (150-450) k/uL Neutrophils # (Manual) 9.80 H (1.3-7.7) k/uL Metamyelocytes # (Man) 0.48 H (0) k/uL Myelocytes # (Manual) 0.12 H (0) k/uL PT (10.0-12.5) sec INR (<1.2) APTT (22.0-30.0) sec ABG pCO2 (35-45) mmHg ABG pO2 (83-108) mmHg ABG HCO3 (21-25) mmol/L ABG Total CO2 (19-24) mmol/L ABG O2 Saturation (94-97) % Hemoglobin (13.0-17.5) gm/dL Sodium (137-145) mmol/L BUN (9-20) mg/dL Creatinine (0.66-1.25) mg/dL Glucose (74-99) mg/dL POC Glucose (mg/dL) 256 H (70-110) mg/dL Plasma Lactic Acid Jae (0.7-2.0) mmol/L Calcium (8.4-10.2) mg/dL Phosphorus (2.5-4.5) mg/dL AST (17-59) U/L ALT (4-49) U/L Alkaline Phosphatase (38-126) U/L Total Protein (6.3-8.2) g/dL Albumin (3.5-5.0) g/dL Crossmatch Microbiology - Last 24 Hours (Table) 04/05/24 03:59 Gram Stain - Final Sputum Sputum Culture - Final Pseudomonas aeruginosa 04/05/24 08:26 Blood Culture - Preliminary Blood Assessment and Plan Assessment: Impression: Massive lower GI bleeding, noted to be from right and transverse colon requiring exploratory laparotomy, subtotal colectomy, and ileostomy, postoperative day #3 Acute exacerbation of COPD Acute blood loss anemia, patient required 6 units of packed RBCs transfusion since admission, hemoglobin seems to be holding today. No active bleeding is noted Chronic right apical scarring History of alcoholism History of abdominal aortic aneurysm status post aortoiliac stent Acute kidney injury most likely secondary to hypotension and acute tubular necrosis creatinine today is 2.33 his baseline is 0.69 Shock liver with transaminitis, improvement is noted slightly in liver enzymes. Benign essential hypertension Ongoing tobacco dependence Chronic right upper lobe scarring, underlying malignancy is not entirely ruled out but felt to be less likely Thrombocytopenia with elevated pro time and elevated PTT but relatively normal fibrinogen Recommendation: Continue fluid resuscitation Discontinue bicarb drip Continue blood products including packed RBCs as needed for hemoglobin below 7 Continue ventilatory support Continue sedation and paralysis/Nimbex as well as propofol and fentanyl. Continue hemodynamic support Continue Protonix/GI prophylaxis Avoid heparin because of low platelets Continue to monitor hemoglobin hematocrit and transfuse for hemoglobin below 7 Continue bronchodilators including DuoNeb, Symbicort, and Solu-Medrol. Continue IV Zosyn Patient is critically ill TPN for nutritional support Prognosis is guarded considering his multiple comorbidities. Updated his brother and his granddaughter at bedside on his condition and made aware of his poor prognosis at this point. Family wishes DNR CODE STATUS, could consider comfort care measures in the next few days if his condition does not show improvement. Critical care time is over 30 minutes Time with Patient: Greater than 30
[2024-04-07 13:32] LABS: INR 1.1 (<1.2); Partial Thromboplastin Time 32.1 sec (22.0-30.0); Prothrombin Time 11.5 sec (10.0-12.5)
--- NOTE | 2024-04-07 13:34 | P.PN ---
Subjective Progress Note Date: 04/07/24 73 year old M with PMH of COPD, CAD, PVD, L iliac stent presented to the ED after a syncopal episode at home after an episode of diarrhea. In the ED he underwent extensive evaluation. BP 83/60, HR 86, T 97.4F, RR 18, 80% on RA?. CBC, Coag panel, CMP significant for RBC 3.62, Hg 12.1, Hct 35.5, Na 130, K 5.7, BUN 24, glu 145, alb 3.4. Mag 1.5. Troponin < 0.012. UA negative. CXR chronic changes. CT head and C-spine no acute process. EKG sinus rhythm with first degree AV block. Initially plans for discharge home however patient had a large maroon colored bowel movement and a Hg drop to 9.4 while in the ED. 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 ER provider discussed the case with GI and arrangements were made for admission to ICU for C-scope tomorrow. Transfused 4 units PRBC. GI evaluated the patient and recommended surgery consult. 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 Post operatively he had significant output from his ileostomy and hypotension requiring Levophed and multiple NS boluses. Underwent EGD which showed old blood in the stomach and duodenum, gastritis and duodenitis, fresh blood in the third portion of the duodenum with no mucosal lesions. Case discussed with Dr. Rojas recommending CTA Abd to rule out aortoenteric fistula. 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 Vascular Sx consulted noted no signs of aortoenteric fistula. Heme- Onc consulted for coagulopathy, likely due to shock liver, FFP and tagged RBC study ordered. Echo showed EF 55-60% with moderate pericardial effusion, Cardiology consulted. 04/07 Patient was seen and examined. Intubated sedated with Propofol at 50 mcg/kg/min + Nimbex at 2 mcg/kg/min. POD 2 subtotal colectomy with end ileostomy. Currently on Levophed at 0.04 mcg/kg/min and Vasopressin at 0.03 units/min. Antibiotics include Zosyn 3.375g IV TID. Nutrition via TPN. CBC and CMP significant for WBC 11.9, RBC 2.87, Hg 9, Hct 26.3, Plt 53, Na 135, BUN 70, Cr 2.33, glu 225, Ca 7.3, alb 1.7, AST 1205, ALT 2159. Phos 5. Mag 2.1. ABG pH 7.35, pCO2 54, pO2 47 FiO2 40. Lactic acid 2.8 down from 7.2. D-Dimer 19.58. Echo done yesterday shows EF 55-60% with moderate pericardial effusion. Sputum C x growing Pseudomonas. CXR done today shows LLL opacity. General: Intubated Derm: Warm, dry Head: Atraumatic, normocephalic, symmetric Eyes: no lid lag, anicteric sclera Mouth: No lip lesion, mucus membranes moist Cardiovascular: S1 S2 tachy. No murmurs, rubs, gallops Lungs: Coarse breath sounds bilaterally, no accessory muscle use Abdominal: Soft, non distended, surgical scar intact dressing c/d/i, ileostomy without much output Ext: No gross muscle atrophy, no edema, no contractures Psych: Intubated Based on my assessment of this patient, this patient meets a high complexity level of care. Lower GI bleed status post exploratory laparotomy and subtotal colectomy with end ileostomy on 04/05: As seen on CT AP. Protonix 40 mg IV BID. Status post 6 units PRBC and 1 FFP. Transfuse PRBC if Hg < 7 and Plt if < 94112. Telemetry monitoring. TPN for nutrition. Admit to ICU. Surgery and GI on board. Hypovolemic versus septic shock: Maintain Levophed and Vasopressin titrate to MAP > 65. Zosyn 3.375g IV TID (D3). D5W with NaHCO3 at 125 cc/hr. Sputum Cx growing Pseudomonas. BCx, final Sputum Cx pending. Coagulopathy: Plt 53. INR 1.4, PT 14.6. APTT 34.8. Fibrinogen 217. D-Dimer 19.58. LDH 1097. Concerns for comsumptive coagulopathy. Obtain D-Dimer, PTT, LDH. Hematology on board. Pericardial effusion: As seen on Echo. Cardiology consulted. Acute kidney injury: Hypovolemic. CT with no obstruction. Pressors and IV hydration as above. Shock Liver: Monitor LFTs. Pressors and IV hydration as above. Lactic acidosis likely due to above. Acute hypoxic respiratory failure COPD exacerbation: DuoNeb QID scheduled and PRN for SOB/wheezing. Solumedrol 40 mg IV TID. Pulmicort 1 mg INH BID. Performist 20 mcg INH BID. Pulmonary on board. Hyperglycemia: From acute stressor and steroid induced. A1c 5.6. Novolog 8 units TID. ISS Q6H. Accuchecks Q6H. Hyponatremia: Hypovolemic. Improved. IV hydration as above. CAD, PVD, L iliac stent: Hold ASA Resolved: HyperK, HypoMag CODE STATUS: FULL CODE DVT Prophylaxis: SCD GI Prophylaxis: Protonix IV Designated medical POA if patient is not able to make medical decisions for themselves: I have reviewed the following industrial rehabilitation consultant notes: Surgery, Pulmonary, GI note. I have reviewed the results of the following tests: CBC, CMP, Phos, Mag, ABG, Lactic acid, D-Dimer, Echo, Sputum Cx. I have ordered the following tests: CBC. I have discussed the care of this patient with the following independent historian: ISABEL. I have independently interpreted the following test below: CXR. I have discussed the management of this patient with the following physician: Objective - Vital Signs Vital signs: Vital Signs Temp 98.1 F 04/07/24 04:00 Pulse 101 H 04/07/24 08:08 Resp 22 04/07/24 07:00 BP 132/68 04/07/24 07:00 Pulse Ox 94 L 04/07/24 07:00 FiO2 60 04/07/24 07:58 Intake & Output 04/06/24 04/07/24 04/07/24 18:59 06:59 18:59 Intake Total 2857.642 2245.730 135 Output Total 415 1445 65 Balance 2442.642 800.730 70 Weight 81.7 kg Intake: IV 1210 1820 135 Dextrose 5% in Water 1, 825 600 50 000 ml @ 50 mls/hr IV . Q23H [facility] with Sodium Bicarb (1 Meq/ml) 150 ml Rx#:[id number] Piperacillin-Tazobactam 3 200 .375 gm In Sodium Chloride 0.9% 100 ml @ 25 mls/hr IVPB Q8H [facility] Rx#: [id number] TPN 385 1020 85 Intake, IV Titration 689.642 425.730 Amount Cisatracurium 200 mg In 60.43 Sodium Chloride 0.9% 180 ml @ 1 MCG/KG/MIN 4.002 mls/hr IV .Q24H [facility] Rx#: [id number] Mvi, Adult No.4 with Vit 248.5 K 10 ml Trace (Conc-1Ml/ Dose) 1 ml Sodium Acetate 40 meq Magnesium Sulfate gm 1 gm Calcium Gluconate 1 gm Potassium Acetate 10 meq In Amino Acid 5%-D15w 1,000 ml @ 85 mls/hr IV .BY DURATION [facility] Rx#:[id number] Norepinephrine 4 mg In 196.541 149.844 Sodium Chloride 0.9% 250 ml @ 0.03 MCG/KG/MIN 7. 258 mls/hr IV .Q24H [facility] Rx#:[id number] Vasopressin 60 unit In 6.044 0 Sodium Chloride 0.9% 150 ml @ 0.03 UNITS/MIN 4.59 mls/hr IV .Q24H [facility] Rx#: [id number] propofoL 1,000 mg In 178.127 275.886 Empty Bag 1 bag @ 15 MCG/ KG/MIN 5.715 mls/hr IV . [id number] [facility] Rx#:[id number] Blood Product 958 Ffp 24 Cpd Unit 359 [id number] As-1 Unit 310 [id number] Pheresis 2 As3 Unit 289 [id number] Output: Urine 415 1285 65 Stool 160 Other: Voiding Method Indwelling Catheter Indwelling Catheter ABP, PAP, CO, CI - Last Documented Arterial Blood Pressure 59/59 - Labs CBC & Chem 7: 04/07/24 06:20 04/07/24 06:20 Labs: Abnormal Lab Results - Last 24 Hours (Table) 04/04/24 04/06/24 04/06/24 Range/Units 16:35 07:50 07:50 WBC (3.8-10.6) k/uL RBC (4.30-5.90) m/uL Hgb (13.0-17.5) gm/dL Hct (39.0-53.0) % RDW (11.5-15.5) % Plt Count (150-450) k/uL Neutrophils # (Manual) (1.3-7.7) k/uL Metamyelocytes # (Man) (0) k/uL Myelocytes # (Manual) (0) k/uL PT 17.9 H (10.0-12.5) sec INR 1.8 H (<1.2) APTT (22.0-30.0) sec D-Dimer (<0.60) mg/L FEU ABG pCO2 (35-45) mmHg ABG pO2 (83-108) mmHg ABG HCO3 (21-25) mmol/L ABG Total CO2 (19-24) mmol/L ABG O2 Saturation (94-97) % Hemoglobin (13.0-17.5) gm/dL Sodium (137-145) mmol/L BUN (9-20) mg/dL Creatinine (0.66-1.25) mg/dL Glucose (74-99) mg/dL POC Glucose (mg/dL) (70-110) mg/dL Plasma Lactic Acid Jae 4.1 H* (0.7-2.0) mmol/L Calcium (8.4-10.2) mg/dL Phosphorus (2.5-4.5) mg/dL AST (17-59) U/L ALT (4-49) U/L Alkaline Phosphatase (38-126) U/L Lactate Dehydrogenase (120-246) U/L Total Protein (6.3-8.2) g/dL Albumin (3.5-5.0) g/dL Crossmatch See Detail 04/06/24 04/06/24 04/06/24 Range/Units 07:50 10:24 10:24 WBC 11.1 H (3.8-10.6) k/uL RBC 2.64 L (4.30-5.90) m/uL Hgb 8.3 L D (13.0-17.5) gm/dL Hct 25.1 L (39.0-53.0) % RDW 15.7 H (11.5-15.5) % Plt Count 67 L (150-450) k/uL Neutrophils # (Manual) (1.3-7.7) k/uL Metamyelocytes # (Man) (0) k/uL Myelocytes # (Manual) (0) k/uL PT (10.0-12.5) sec INR (<1.2) APTT 43.7 H (22.0-30.0) sec D-Dimer 19.58 H (<0.60) mg/L FEU ABG pCO2 (35-45) mmHg ABG pO2 (83-108) mmHg ABG HCO3 (21-25) mmol/L ABG Total CO2 (19-24) mmol/L ABG O2 Saturation (94-97) % Hemoglobin (13.0-17.5) gm/dL Sodium (137-145) mmol/L BUN (9-20) mg/dL Creatinine (0.66-1.25) mg/dL Glucose (74-99) mg/dL POC Glucose (mg/dL) (70-110) mg/dL Plasma Lactic Acid Jae (0.7-2.0) mmol/L Calcium (8.4-10.2) mg/dL Phosphorus (2.5-4.5) mg/dL AST (17-59) U/L ALT (4-49) U/L Alkaline Phosphatase (38-126) U/L Lactate Dehydrogenase 1097 H (120-246) U/L Total Protein (6.3-8.2) g/dL Albumin (3.5-5.0) g/dL Crossmatch 04/06/24 04/06/24 04/06/24 Range/Units 14:12 14:15 14:15 WBC (3.8-10.6) k/uL RBC (4.30-5.90) m/uL Hgb (13.0-17.5) gm/dL Hct (39.0-53.0) % RDW (11.5-15.5) % Plt Count (150-450) k/uL Neutrophils # (Manual) (1.3-7.7) k/uL Metamyelocytes # (Man) (0) k/uL Myelocytes # (Manual) (0) k/uL PT 14.6 H (10.0-12.5) sec INR 1.4 H (<1.2) APTT 34.8 H (22.0-30.0) sec D-Dimer (<0.60) mg/L FEU ABG pCO2 (35-45) mmHg ABG pO2 (83-108) mmHg ABG HCO3 (21-25) mmol/L ABG Total CO2 (19-24) mmol/L ABG O2 Saturation (94-97) % Hemoglobin (13.0-17.5) gm/dL Sodium (137-145) mmol/L BUN (9-20) mg/dL Creatinine (0.66-1.25) mg/dL Glucose (74-99) mg/dL POC Glucose (mg/dL) 257 H (70-110) mg/dL Plasma Lactic Acid Jae 2.8 H* (0.7-2.0) mmol/L Calcium (8.4-10.2) mg/dL Phosphorus (2.5-4.5) mg/dL AST (17-59) U/L ALT (4-49) U/L Alkaline Phosphatase (38-126) U/L Lactate Dehydrogenase (120-246) U/L Total Protein (6.3-8.2) g/dL Albumin (3.5-5.0) g/dL Crossmatch 04/06/24 04/06/24 04/06/24 Range/Units 16:13 16:14 21:03 WBC (3.8-10.6) k/uL RBC 2.86 L (4.30-5.90) m/uL Hgb 8.9 L (13.0-17.5) gm/dL Hct 25.8 L (39.0-53.0) % RDW 16.3 H (11.5-15.5) % Plt Count 57 L (150-450) k/uL Neutrophils # (Manual) (1.3-7.7) k/uL Metamyelocytes # (Man) (0) k/uL Myelocytes # (Manual) (0) k/uL PT (10.0-12.5) sec INR (<1.2) APTT (22.0-30.0) sec D-Dimer (<0.60) mg/L FEU ABG pCO2 (35-45) mmHg ABG pO2 (83-108) mmHg ABG HCO3 (21-25) mmol/L ABG Total CO2 (19-24) mmol/L ABG O2 Saturation (94-97) % Hemoglobin (13.0-17.5) gm/dL Sodium (137-145) mmol/L BUN (9-20) mg/dL Creatinine (0.66-1.25) mg/dL Glucose (74-99) mg/dL POC Glucose (mg/dL) 229 H 283 H (70-110) mg/dL Plasma Lactic Acid Jae (0.7-2.0) mmol/L Calcium (8.4-10.2) mg/dL Phosphorus (2.5-4.5) mg/dL AST (17-59) U/L ALT (4-49) U/L Alkaline Phosphatase (38-126) U/L Lactate Dehydrogenase (120-246) U/L Total Protein (6.3-8.2) g/dL Albumin (3.5-5.0) g/dL Crossmatch 04/07/24 04/07/24 04/07/24 Range/Units 05:34 06:20 06:20 WBC 11.9 H (3.8-10.6) k/uL RBC 2.87 L (4.30-5.90) m/uL Hgb 9.0 L (13.0-17.5) gm/dL Hct 26.3 L (39.0-53.0) % RDW 16.9 H (11.5-15.5) % Plt Count 53 L (150-450) k/uL Neutrophils # (Manual) 9.80 H (1.3-7.7) k/uL Metamyelocytes # (Man) 0.48 H (0) k/uL Myelocytes # (Manual) 0.12 H (0) k/uL PT (10.0-12.5) sec INR (<1.2) APTT (22.0-30.0) sec D-Dimer (<0.60) mg/L FEU ABG pCO2 54 H (35-45) mmHg ABG pO2 47 L* (83-108) mmHg ABG HCO3 30 H (21-25) mmol/L ABG Total CO2 32 H (19-24) mmol/L ABG O2 Saturation 82.5 L (94-97) % Hemoglobin 9.4 L (13.0-17.5) gm/dL Sodium 135 L (137-145) mmol/L BUN 70 H (9-20) mg/dL Creatinine 2.33 H (0.66-1.25) mg/dL Glucose 225 H (74-99) mg/dL POC Glucose (mg/dL) (70-110) mg/dL Plasma Lactic Acid Jae (0.7-2.0) mmol/L Calcium 7.3 L (8.4-10.2) mg/dL Phosphorus 5.0 H (2.5-4.5) mg/dL AST 1205 H (17-59) U/L ALT 2159 H (4-49) U/L Alkaline Phosphatase 34 L (38-126) U/L Lactate Dehydrogenase (120-246) U/L Total Protein 3.4 L (6.3-8.2) g/dL Albumin 1.7 L (3.5-5.0) g/dL Crossmatch Microbiology - Last 24 Hours (Table) 04/05/24 08:26 Blood Culture - Preliminary Blood 04/05/24 03:59 Gram Stain - Preliminary Sputum Sputum Culture - Preliminary Pseudomonas aeruginosa
--- NOTE | 2024-04-07 15:09 | P.CRDCN ---
History of Present Illness Consult date: 04/07/24 History of present illness: The patient is a 73-year-old gentleman with a past medical history significant for smoking and alcohol use and COPD as well as hypertension and dyslipidemia and history of abdominal aortic aneurysm with prior repair according to the charts we consulted to see for further evaluation of pericardial effusion. The patient currently is intubated and he is on mechanical ventilation and the history was taken from the chart. The patient presented to the hospital few days ago with dizziness and lightheadedness and possibly an episode of loss of consciousness as well as gastrointestinal bleeding. He was experiencing blood per rectum. Giving the severity of his symptoms he was admitted to the intensive care unit. General surgery service was consulted and recommended doing surgery giving that the GI bleeding was more profound. The patient underwent a colectomy. Subsequently he was brought back to the intensive care unit. He was intubated on mechanical ventilation and also he was hypotensive requiring norepinephrine. Also the patient was in acute renal failure. We consulted to see the patient because an echocardiogram was performed and showed moderate pericardial effusion with no evidence of tamponade physiology. The ejection fraction of the LV was within normal limits. Currently the patient is hemodynamically unstable and he is on norepinephrine. No prior cardiac history but according to his family ember he was diagnosed with thoracic aortic aneurysm which has been monitored regularly. Otherwise no history of coronary artery disease or congestive heart failure or cardiac arrhythmia. The EKG showed sinus mechanism with diffuse nonspecific ST and T wave abnormalities noted. The physical examination is remarkable for regular rhythm with a distant heart sounds and systolic murmur at the right upper sternal border with diminished breathing sounds bilaterally and no edema was noted in the lower extremities. Assessment Gastrointestinal bleeding Status post exploratory laparotomy and colectomy Anemia secondary to blood loss Renal failure Shock likely to be hypovolemic or multifactorial History of smoking History of alcohol use Pericardial effusion on recent echocardiogram Multiple comorbid conditions Plan Continue hemodynamic support Monitor the pericardial effusion and probably repeat the echo in the next 24 to 48 hours No evidence of tamponade physiology on the echocardiogram at this point Avoid any aggressive diuretics use Follow-up with the patient Past Medical History Past Medical History: COPD, GERD/Reflux, Myocardial Infarction ([place]), Pneumonia, Vascular Disorder Additional Past Medical History / Comment(s): Bronchitis, past respiratory failure, PVD, pt states [place] per EKG, beginnings of bilateral cataracts. Mass on lung, agent orange from [place]. Last Myocardial Infarction Date:: 2009 per EKG History of Any Multi-Drug Resistant Organisms: None Reported Past Surgical History: Appendectomy Additional Past Surgical History / Comment(s): Endovascular aortic repair, L iliac stent, colonoscopy Past Anesthesia/Blood Transfusion Reactions: No Reported Reaction Additional Past Anesthesia/Blood Transfusion Reaction / Comment(s): no blood transfusion Past Psychological History: Anxiety, Depression Smoking Status: Current every day smoker Past Alcohol Use History: None Reported Past Drug Use History: None Reported - Past Family History Mother Family Medical History: Liver Disease Additional Family Medical History / Comment(s): liver cirrhosis Brother(s) Family Medical History: Vascular Disorder Father Family Medical History: Myocardial Infarction ([place]) Medications and Allergies Home Medications Medication Instructions Recorded Confirmed Type Aspirin EC [Ecotrin Low Dose] 81 mg PO DAILY 12/11/19 04/04/24 History Albuterol Inhaler [Ventolin Hfa 2 puff INHALATION RT-Q6H PRN 04/04/24 04/04/24 History Inhaler] Atorvastatin [Lipitor] 40 mg PO HS 04/04/24 04/04/24 History Formoterol Fumarate [Perforomist] 20 mcg INHALATION RT-BID 04/04/24 04/04/24 History Ipratropium Nebulized [Atrovent 0.5 mg INHALATION RT-QID PRN 04/04/24 04/04/24 History Nebulized 0.2 MG/ML] Ketoconazole 2% Cream [Nizoral 2%] 1 applic TOPICAL DAILY PRN 04/04/24 04/04/24 History Mometasone/Formoterol [Dulera 200 2 puff INHALATION RT-BID 04/04/24 04/04/24 History Mcg-5 Mcg Inhaler] Omeprazole [PriLOSEC] 20 mg PO DAILY 04/04/24 04/04/24 History Tiotropium 2.5 Mcg/Puff [Spiriva 2 puff INHALATION RT-DAILY 04/04/24 04/04/24 History Respimat 2.5 Mcg] lisinopriL [Zestril] 10 mg PO DAILY 04/04/24 04/04/24 History predniSONE 5 mg PO DAILY 04/04/24 04/04/24 History traMADol HCL 100 mg PO Q8H PRN 04/04/24 04/04/24 History Allergies Allergy/AdvReac Type Severity Reaction Status Date / Time bee venom protein (honey bee) Allergy Unknown Verified 04/04/24 16:10 tape AdvReac Rash/Hives Uncoded 04/04/24 16:10 Physical Exam Vitals: Vital Signs Temp Pulse Resp BP Pulse Ox FiO2 04/07/24 14:00 96 24 97/58 92 L 04/07/24 13:58 97.9 F 96 24 95/49 92 L 04/07/24 13:48 97.9 F 104 H 24 90/49 92 L 04/07/24 13:45 98 24 94/54 95 04/07/24 13:30 98 24 83/55 95 04/07/24 13:15 99 24 93/55 96 04/07/24 13:00 99 24 95/63 98 04/07/24 12:45 99 24 94/62 100 04/07/24 12:30 97 24 100/58 100 04/07/24 12:22 90 04/07/24 12:15 99 24 103/58 100 04/07/24 12:05 98 04/07/24 12:00 97.9 F 99 24 100 90 04/07/24 11:59 100 04/07/24 11:45 100 24 93/62 100 04/07/24 11:30 100 24 95/53 100 04/07/24 11:15 101 H 24 85/60 100 04/07/24 11:00 101 H 22 91/53 100 04/07/24 10:45 101 H 24 92/61 100 04/07/24 10:30 103 H 24 97/64 100 04/07/24 10:15 104 H 24 92/59 100 04/07/24 10:00 104 H 24 96/56 98 04/07/24 09:45 104 H 24 91/55 97 04/07/24 09:30 104 H 22 89/60 88 L 100 04/07/24 09:15 105 H 22 74/53 89 L 04/07/24 09:00 105 H 22 84/55 88 L 04/07/24 08:45 104 H 22 87/55 88 L 04/07/24 08:30 104 H 22 98/58 89 L 04/07/24 08:21 104 H 04/07/24 08:15 103 H 22 96/61 91 L 04/07/24 08:08 101 H 09/12/24 08:07 101 H 04/07/24 08:00 101 H 22 106/60 91 L 04/07/24 07:58 60 04/07/24 07:45 99 22 102/60 92 L 04/07/24 07:30 100 22 111/64 95 04/07/24 07:15 98.4 F 98 22 124/64 94 L 60 04/07/24 07:00 95 22 132/68 94 L 04/07/24 06:52 60 04/07/24 06:45 93 22 130/67 95 04/07/24 06:30 93 22 138/64 92 L 04/07/24 06:15 93 22 136/69 94 L 04/07/24 06:00 93 22 129/61 91 L 04/07/24 05:45 93 22 127/62 93 L 70 04/07/24 05:30 94 22 111/59 87 L 04/07/24 05:15 95 0 L 130/66 89 L 04/07/24 05:00 95 18 130/67 91 L 04/07/24 04:45 96 6 L 139/67 92 L 04/07/24 04:30 97 0 L 135/66 93 L 04/07/24 04:15 97 0 L 139/67 93 L 04/07/24 04:00 98.1 F 96 22 138/68 92 L 40 04/07/24 03:45 97 22 132/65 92 L 04/07/24 03:30 97 22 131/66 94 L 04/07/24 03:29 40 04/07/24 03:15 98 22 132/69 94 L 04/07/24 03:00 98 22 135/67 94 L 04/07/24 02:45 98 22 138/67 94 L 04/07/24 02:30 99 22 134/68 95 04/07/24 02:15 99 22 134/68 93 L 04/07/24 02:00 99 22 132/63 93 L 04/07/24 01:45 100 22 132/68 94 L 04/07/24 01:30 101 H 22 124/69 92 L 04/07/24 01:15 101 H 22 135/68 93 L 04/07/24 01:00 101 H 22 139/68 94 L 04/07/24 00:45 102 H 22 143/75 94 L 04/07/24 00:30 102 H 22 145/72 92 L 04/07/24 00:15 98 22 136/69 97 04/07/24 00:11 40 04/07/24 00:00 98.1 F 98 22 134/65 97 40 04/06/24 23:45 98 22 134/64 97 04/06/24 23:30 98 22 136/69 97 04/06/24 23:24 98 18 136/69 98 04/06/24 23:15 99 22 131/65 97 04/06/24 23:00 99 17 129/69 98 04/06/24 22:45 99 22 125/70 98 04/06/24 22:30 99 15 119/66 97 04/06/24 22:15 94 15 124/65 96 04/06/24 22:00 98 22 129/70 98 04/06/24 21:45 96 22 121/68 97 04/06/24 21:35 100 04/06/24 21:30 93 22 125/69 98 04/06/24 21:26 100 04/06/24 21:25 100 04/06/24 21:15 95 22 125/69 98 04/06/24 21:10 96 04/06/24 21:08 40 04/06/24 21:00 96 22 121/65 98 04/06/24 20:45 96 22 112/69 99 04/06/24 20:30 98 22 108/70 98 04/06/24 20:15 98 22 116/66 97 04/06/24 20:00 98.2 F 98 22 121/67 98 40 04/06/24 19:45 99 22 122/70 98 04/06/24 19:30 99 22 113/69 98 04/06/24 19:15 100 22 115/68 98 04/06/24 19:00 100 22 118/70 98 40 04/06/24 18:45 100 22 119/71 99 04/06/24 18:30 101 H 22 98 04/06/24 18:15 102 H 22 115/71 98 04/06/24 18:00 101 H 22 110/69 98 40 04/06/24 17:45 102 H 22 115/68 98 04/06/24 17:30 102 H 22 124/74 99 04/06/24 17:15 101 H 22 119/69 99 04/06/24 17:00 102 H 22 124/70 98 40 04/06/24 16:45 103 H 22 124/68 99 04/06/24 16:30 104 H 22 108/63 98 04/06/24 16:22 102 H 04/06/24 16:15 102 H 22 95/56 98 04/06/24 16:14 102 H 04/06/24 16:09 40 04/06/24 16:00 99.1 F 103 H 22 97 40 04/06/24 15:45 104 H 22 97 04/06/24 15:30 103 H 22 97 04/06/24 15:15 103 H 22 97 Intake and Output 04/07/24 04/07/24 04/07/24 06:59 14:59 22:59 Intake Total 2305.230 1576.449 Output Total 1120 185 Balance 4554.611 1008.449 Intake: IV 1180 1130 Dextrose 5% in Water 1, 400 250 000 ml @ 50 mls/hr IV . Q23H [facility] with Sodium Bicarb (1 Meq/ml) 150 ml Rx#:[id number] Piperacillin-Tazobactam 3 100 200 .375 gm In Sodium Chloride 0.9% 100 ml @ 25 mls/hr IVPB Q8H [facility] Rx#: [id number] TPN 680 680 Intake, IV Titration 1125.230 446.449 Amount Cisatracurium 200 mg In 200.000 Sodium Chloride 0.9% 180 ml @ 1 MCG/KG/MIN 4.002 mls/hr IV .Q24H [facility] Rx#: [id number] Mvi, Adult No.4 with Vit 799.5 K 10 ml Trace (Conc-1Ml/ Dose) 1 ml Sodium Acetate 40 meq Magnesium Sulfate gm 1 gm Calcium Gluconate 1 gm Potassium Acetate 10 meq In Amino Acid 5%-D15w 1,000 ml @ 85 mls/hr IV .BY DURATION [facility] Rx#:[id number] Norepinephrine 4 mg In 149.844 63.752 Sodium Chloride 0.9% 250 ml @ 0.03 MCG/KG/MIN 7. 258 mls/hr IV .Q24H [facility] Rx#:[id number] Vasopressin 60 unit In 82.697 Sodium Chloride 0.9% 150 ml @ 0.03 UNITS/MIN 4.59 mls/hr IV .Q24H [facility] Rx#: [id number] propofoL 1,000 mg In 175.886 100 Empty Bag 1 bag @ 15 MCG/ KG/MIN 5.715 mls/hr IV . [id number] [facility] Rx#:[id number] Blood Product 0 Rc As-1 Unit 0 [id number] Output: Urine 960 185 Stool 160 Other: Voiding Method Indwelling Catheter Weight 81.7 kg ABP, PAP, CO, CI - Last 8 Hours Arterial Blood Pressure 94/49 Arterial Blood Pressure 83/47 Arterial Blood Pressure 77/44 Arterial Blood Pressure 80/45 Arterial Blood Pressure 78/45 Arterial Blood Pressure 82/46 Arterial Blood Pressure 81/48 Arterial Blood Pressure 85/48 Arterial Blood Pressure 87/48 Arterial Blood Pressure 87/48 Arterial Blood Pressure 88/47 Arterial Blood Pressure 83/47 Arterial Blood Pressure 84/48 Arterial Blood Pressure 89/49 Arterial Blood Pressure 83/51 Arterial Blood Pressure 94/53 Arterial Blood Pressure 85/51 Arterial Blood Pressure 92/52 Arterial Blood Pressure 78/48 Arterial Blood Pressure 84/49 Arterial Blood Pressure 75/48 Arterial Blood Pressure 80/48 Arterial Blood Pressure 82/50 Arterial Blood Pressure 87/51 Arterial Blood Pressure 91/51 Arterial Blood Pressure 94/54 Arterial Blood Pressure 79/68 Arterial Blood Pressure 98/66 Results 04/07/24 06:20 04/07/24 06:20 Cardiac Enzymes 04/07/24 Range/Units 06:20 AST 1205 H (17-59) U/L Coagulation 04/07/24 Range/Units 13:15 PT 11.5 (10.0-12.5) sec APTT 32.1 H (22.0-30.0) sec CBC 04/06/24 04/07/24 Range/Units 16:14 06:20 WBC 10.2 11.9 H (3.8-10.6) k/uL RBC 2.86 L 2.87 L (4.30-5.90) m/uL Hgb 8.9 L 9.0 L (13.0-17.5) gm/dL Hct 25.8 L 26.3 L (39.0-53.0) % Plt Count 57 L 53 L (150-450) k/uL Comprehensive Metabolic Panel 04/07/24 Range/Units 06:20 Sodium 135 L (137-145) mmol/L Potassium 4.1 (3.5-5.1) mmol/L Chloride 102 (98-107) mmol/L Carbon Dioxide 27 (22-30) mmol/L BUN 70 H (9-20) mg/dL Creatinine 2.33 H (0.66-1.25) mg/dL Glucose 225 H (74-99) mg/dL Calcium 7.3 L (8.4-10.2) mg/dL AST 1205 H (17-59) U/L ALT 2159 H (4-49) U/L Alkaline Phosphatase 34 L (38-126) U/L Total Protein 3.4 L (6.3-8.2) g/dL Albumin 1.7 L (3.5-5.0) g/dL Current Medications Generic Name Dose Route Start Last Admin Trade Name Freq PRN Reason Stop Dose Admin Albuterol/Ipratropium 3 ml 04/04/24 16:45 04/05/24 03:56 Ipratropium-Albuterol 3 Ml Neb INHALATION 3 ml RT-Q4H PRN Administration Shortness Of Breath Or Wheezing Albuterol/Ipratropium 3 ml 04/04/24 20:00 04/07/24 12:03 Ipratropium-Albuterol 3 Ml Neb INHALATION 3 ml RT-QID [facility] Administration Artificial Tears 2 drops 04/07/24 00:00 04/07/24 13:35 Artificial Tears-Hypromellose Drops 15 Ml Btl BOTH EYES 2 drops Q4HR [facility] Administration Budesonide 1 mg 04/05/24 08:00 04/07/24 08:00 Budesonide 1 Mg/2 Ml Nebu INHALATION 1 mg RT-BID [facility] Administration Chlorhexidine Gluconate 15 ml 04/05/24 09:00 04/07/24 10:52 Chlorhexidine Gluconate 15 Ml Cup MUCOUS MEM 15 ml BID [facility] Administration Clotrimazole 1 applic 04/04/24 17:00 Clotrimazole 1% Cream 30 Gm Tube TOPICAL DAILY PRN FEET Dextrose/Water 25 ml 04/06/24 07:42 Dextrose 50% Syringe 50 Ml IVP PER PROTOCOL PRN Hypoglycemia Protocol Dextrose/Water 50 ml 04/06/24 07:42 Dextrose 50% Syringe 50 Ml IVP PER PROTOCOL PRN Hypoglycemia Protocol Formoterol Fumarate 20 mcg 04/05/24 08:00 04/07/24 08:00 Formoterol Fumarate 20 Mcg/2 Ml Nebu INHALATION 20 mcg RT-BID [facility] Administration Piperacillin Sod/Tazobactam 100 mls @ 25 mls/hr 04/05/24 02:00 04/07/24 10:53 Sod 3.375 gm/ Sodium Chloride IVPB 25 mls/hr Q8H [facility] Administration Protocol Propofol 1,000 mg/ IV Solution 100 mls @ 5.715 mls/hr 04/05/24 01:15 04/07/24 10:53 IV 50 mcg/kg/min .[id number] [facility] 19.051 mls/hr Administration Protocol 15 MCG/KG/MIN Norepinephrine Bitartrate 4 mg 254 mls @ 7.258 mls/hr 04/05/24 04:30 04/07/24 09:30 / Sodium Chloride IV 0.12 mcg/kg/min .Q24H [facility] 29.034 mls/hr Titration Protocol 0.03 MCG/KG/MIN Vasopressin 60 unit/ Sodium 153 mls @ 4.59 mls/hr 04/05/24 06:30 04/07/24 13:31 Chloride IV 0.03 units/min .Q24H [facility] 4.59 mls/hr Titration Protocol 0.03 UNITS/MIN Parenteral Vitamin Supplement 1,048 mls @ 85 mls/hr 04/06/24 10:00 04/07/24 13:29 10 ml/ Zinc/Copper/Manganese/ IV 85 mls/hr Selenium 1 ml/ Sodium Acetate .BY DURATION [facility] Administration 40 meq/ Magnesium Sulfate 1 gm / Calcium Gluconate 1 gm/ Potassium Acetate 10 meq/ Amino Acids/Dextrose Sodium Acetate 40 meq/ 1,037 mls @ 85 mls/hr 04/06/24 10:00 04/07/24 01:34 Magnesium Sulfate 1 gm/ IV 85 mls/hr Calcium Gluconate 1 gm/ .BY DURATION [facility] Administration Potassium Acetate 10 meq/ Amino Acids/Dextrose Cisatracurium Besylate 200 mg/ 200 mls @ 4.002 mls/hr 04/05/24 19:00 04/07/24 13:00 Sodium Chloride IV 1.5 mcg/kg/min .Q24H [facility] 6.003 mls/hr Administration Protocol 1 MCG/KG/MIN Fentanyl Citrate 1,000 mcg/ 100 mls @ 1.668 mls/hr 04/05/24 20:15 04/07/24 03:32 Sodium Chloride IV Not Given .Q24H [facility] Protocol 0.25 MCG/KG/HR Insulin Aspart 8 unit 04/06/24 09:00 04/07/24 10:52 Insulin Aspart (Novolog) 100 Unit/Ml Vial 0.1 unit/kg (8 unit) 8 unit SQ Administration TID [facility] Insulin Aspart 0 unit 04/06/24 08:00 04/07/24 13:29 Insulin Aspart (Novolog) 100 Unit/Ml Vial SQ 2 unit Q6H [facility] Administration Protocol Ipratropium [place] 0.5 mg 04/04/24 17:00 Ipratropium 0.5 Mg/2.5 Ml Nebu INHALATION RT-QID PRN Shortness Of Breath Lorazepam 1 mg 04/04/24 16:59 Lorazepam 2 Mg/Ml Inj IV Q1HR PRN CIWA 10 to 15 Methylprednisolone Sodium Succinate 40 mg 04/05/24 00:00 04/07/24 10:52 Methylprednisolone Sod Succi 40 Mg/Ml 1 Ml Vial IV 40 mg Q8HR [facility] Administration Naloxone HCl 0.2 mg 04/04/24 16:45 Naloxone 0.4 Mg/Ml 1 Ml Vial IV Q2M PRN Opioid Reversal Pantoprazole Sodium 40 mg 04/05/24 00:00 04/07/24 10:52 Pantoprazole 40 Mg/10 Ml Vial IVP 40 mg BID [facility] Administration Intake and Output 04/07/24 04/07/24 04/07/24 06:59 14:59 22:59 Intake Total 2305.230 1576.449 Output Total 1120 185 Balance 8582.267 6187.449 Intake: IV 1180 1130 Dextrose 5% in Water 1, 400 250 000 ml @ 50 mls/hr IV . Q23H [facility] with Sodium Bicarb (1 Meq/ml) 150 ml Rx#:[id number] Piperacillin-Tazobactam 3 100 200 .375 gm In Sodium Chloride 0.9% 100 ml @ 25 mls/hr IVPB Q8H [facility] Rx#: [id number] TPN 680 680 Intake, IV Titration 1125.230 446.449 Amount Cisatracurium 200 mg In 200.000 Sodium Chloride 0.9% 180 ml @ 1 MCG/KG/MIN 4.002 mls/hr IV .Q24H [facility] Rx#: [id number] Mvi, Adult No.4 with Vit 799.5 K 10 ml Trace (Conc-1Ml/ Dose) 1 ml Sodium Acetate 40 meq Magnesium Sulfate gm 1 gm Calcium Gluconate 1 gm Potassium Acetate 10 meq In Amino Acid 5%-D15w 1,000 ml @ 85 mls/hr IV .BY DURATION [facility] Rx#:[id number] Norepinephrine 4 mg In 149.844 63.752 Sodium Chloride 0.9% 250 ml @ 0.03 MCG/KG/MIN 7. 258 mls/hr IV .Q24H [facility] Rx#:[id number] Vasopressin 60 unit In 82.697 Sodium Chloride 0.9% 150 ml @ 0.03 UNITS/MIN 4.59 mls/hr IV .Q24H [facility] Rx#: [id number] propofoL 1,000 mg In 175.886 100 Empty Bag 1 bag @ 15 MCG/ KG/MIN 5.715 mls/hr IV . [id number] [facility] Rx#:[id number] Blood Product 0 Rc As-1 Unit 0 [id number] Output: Urine 960 185 Stool 160 Other: Voiding Method Indwelling Catheter Weight 81.7 kg 04/07/24 06:20 04/07/24 06:20
--- NOTE | 2024-04-07 15:35 | P.PN ---
Subjective Progress Note Date: 04/07/24 Patient seen in ICU, remains in the ICU, ventilated and on pressors. Hgb stable, 9.0 today. Bloody output in OG and ostomy improving. LFTs improved Objective - Vital Signs Vital signs: Vital Signs Temp 98.4 F 04/07/24 07:15 Pulse 98 04/07/24 12:15 Resp 22 04/07/24 11:00 BP 91/53 04/07/24 11:00 Pulse Ox 100 04/07/24 11:00 FiO2 90 04/07/24 12:22 Intake & Output 04/06/24 04/07/24 04/07/24 18:59 06:59 18:59 Intake Total 2857.642 2245.730 1127.646 Output Total 415 1445 165 Balance 2442.642 800.730 962.646 Weight 81.7 kg Intake: IV 1210 1820 775 Dextrose 5% in Water 1, 825 600 250 000 ml @ 50 mls/hr IV . Q23H [facility] with Sodium Bicarb (1 Meq/ml) 150 ml Rx#:[id number] Piperacillin-Tazobactam 3 200 100 .375 gm In Sodium Chloride 0.9% 100 ml @ 25 mls/hr IVPB Q8H [facility] Rx#: [id number] TPN 385 1020 425 Intake, IV Titration 689.642 425.730 352.646 Amount Cisatracurium 200 mg In 60.43 188.894 Sodium Chloride 0.9% 180 ml @ 1 MCG/KG/MIN 4.002 mls/hr IV .Q24H [facility] Rx#: [id number] Mvi, Adult No.4 with Vit 248.5 K 10 ml Trace (Conc-1Ml/ Dose) 1 ml Sodium Acetate 40 meq Magnesium Sulfate gm 1 gm Calcium Gluconate 1 gm Potassium Acetate 10 meq In Amino Acid 5%-D15w 1,000 ml @ 85 mls/hr IV .BY DURATION [facility] Rx#:[id number] Norepinephrine 4 mg In 196.541 149.844 63.752 Sodium Chloride 0.9% 250 ml @ 0.03 MCG/KG/MIN 7. 258 mls/hr IV .Q24H [facility] Rx#:[id number] Vasopressin 60 unit In 6.044 0 Sodium Chloride 0.9% 150 ml @ 0.03 UNITS/MIN 4.59 mls/hr IV .Q24H [facility] Rx#: [id number] propofoL 1,000 mg In 178.127 275.886 100 Empty Bag 1 bag @ 15 MCG/ KG/MIN 5.715 mls/hr IV . [id number] [facility] Rx#:[id number] Blood Product 958 Ffp 24 Cpd Unit 359 [id number] Rc As-1 Unit 310 [id number] Rc Pheresis 2 As3 Unit 289 [id number] Output: Urine 415 1285 165 Stool 160 Other: Voiding Method Indwelling Catheter Indwelling Catheter ABP, PAP, CO, CI - Last Documented Arterial Blood Pressure 84/48 - Constitutional General appearance: Present: no acute distress - Respiratory Details: ventilated breath sounds - Cardiovascular Details: skin warm and dry - Integumentary Integumentary: Absent: cyanotic - Neurologic Neurologic Comment(s): sedated - Labs CBC & Chem 7: 04/07/24 06:20 04/07/24 06:20 Labs: Abnormal Lab Results - Last 24 Hours (Table) 04/04/24 04/06/24 04/06/24 Range/Units 16:35 14:12 14:15 WBC (3.8-10.6) k/uL RBC (4.30-5.90) m/uL Hgb (13.0-17.5) gm/dL Hct (39.0-53.0) % RDW (11.5-15.5) % Plt Count (150-450) k/uL Neutrophils # (Manual) (1.3-7.7) k/uL Metamyelocytes # (Man) (0) k/uL Myelocytes # (Manual) (0) k/uL PT (10.0-12.5) sec INR (<1.2) APTT (22.0-30.0) sec ABG pCO2 (35-45) mmHg ABG pO2 (83-108) mmHg ABG HCO3 (21-25) mmol/L ABG Total CO2 (19-24) mmol/L ABG O2 Saturation (94-97) % Hemoglobin (13.0-17.5) gm/dL Sodium (137-145) mmol/L BUN (9-20) mg/dL Creatinine (0.66-1.25) mg/dL Glucose (74-99) mg/dL POC Glucose (mg/dL) 257 H (70-110) mg/dL Plasma Lactic Acid Jae 2.8 H* (0.7-2.0) mmol/L Calcium (8.4-10.2) mg/dL Phosphorus (2.5-4.5) mg/dL AST (17-59) U/L ALT (4-49) U/L Alkaline Phosphatase (38-126) U/L Total Protein (6.3-8.2) g/dL Albumin (3.5-5.0) g/dL Crossmatch See Detail 04/06/24 04/06/24 04/06/24 Range/Units 14:15 16:13 16:14 WBC (3.8-10.6) k/uL RBC 2.86 L (4.30-5.90) m/uL Hgb 8.9 L (13.0-17.5) gm/dL Hct 25.8 L (39.0-53.0) % RDW 16.3 H (11.5-15.5) % Plt Count 57 L (150-450) k/uL Neutrophils # (Manual) (1.3-7.7) k/uL Metamyelocytes # (Man) (0) k/uL Myelocytes # (Manual) (0) k/uL PT 14.6 H (10.0-12.5) sec INR 1.4 H (<1.2) APTT 34.8 H (22.0-30.0) sec ABG pCO2 (35-45) mmHg ABG pO2 (83-108) mmHg ABG HCO3 (21-25) mmol/L ABG Total CO2 (19-24) mmol/L ABG O2 Saturation (94-97) % Hemoglobin (13.0-17.5) gm/dL Sodium (137-145) mmol/L BUN (9-20) mg/dL Creatinine (0.66-1.25) mg/dL Glucose (74-99) mg/dL POC Glucose (mg/dL) 229 H (70-110) mg/dL Plasma Lactic Acid Jae (0.7-2.0) mmol/L Calcium (8.4-10.2) mg/dL Phosphorus (2.5-4.5) mg/dL AST (17-59) U/L ALT (4-49) U/L Alkaline Phosphatase (38-126) U/L Total Protein (6.3-8.2) g/dL Albumin (3.5-5.0) g/dL Crossmatch 04/06/24 04/07/24 04/07/24 Range/Units 21:03 05:34 06:20 WBC (3.8-10.6) k/uL RBC (4.30-5.90) m/uL Hgb (13.0-17.5) gm/dL Hct (39.0-53.0) % RDW (11.5-15.5) % Plt Count (150-450) k/uL Neutrophils # (Manual) (1.3-7.7) k/uL Metamyelocytes # (Man) (0) k/uL Myelocytes # (Manual) (0) k/uL PT (10.0-12.5) sec INR (<1.2) APTT (22.0-30.0) sec ABG pCO2 54 H (35-45) mmHg ABG pO2 47 L* (83-108) mmHg ABG HCO3 30 H (21-25) mmol/L ABG Total CO2 32 H (19-24) mmol/L ABG O2 Saturation 82.5 L (94-97) % Hemoglobin 9.4 L (13.0-17.5) gm/dL Sodium 135 L (137-145) mmol/L BUN 70 H (9-20) mg/dL Creatinine 2.33 H (0.66-1.25) mg/dL Glucose 225 H (74-99) mg/dL POC Glucose (mg/dL) 283 H (70-110) mg/dL Plasma Lactic Acid Jae (0.7-2.0) mmol/L Calcium 7.3 L (8.4-10.2) mg/dL Phosphorus 5.0 H (2.5-4.5) mg/dL AST 1205 H (17-59) U/L ALT 2159 H (4-49) U/L Alkaline Phosphatase 34 L (38-126) U/L Total Protein 3.4 L (6.3-8.2) g/dL Albumin 1.7 L (3.5-5.0) g/dL Crossmatch 04/07/24 04/07/24 Range/Units 06:20 10:37 WBC 11.9 H (3.8-10.6) k/uL RBC 2.87 L (4.30-5.90) m/uL Hgb 9.0 L (13.0-17.5) gm/dL Hct 26.3 L (39.0-53.0) % RDW 16.9 H (11.5-15.5) % Plt Count 53 L (150-450) k/uL Neutrophils # (Manual) 9.80 H (1.3-7.7) k/uL Metamyelocytes # (Man) 0.48 H (0) k/uL Myelocytes # (Manual) 0.12 H (0) k/uL PT (10.0-12.5) sec INR (<1.2) APTT (22.0-30.0) sec ABG pCO2 (35-45) mmHg ABG pO2 (83-108) mmHg ABG HCO3 (21-25) mmol/L ABG Total CO2 (19-24) mmol/L ABG O2 Saturation (94-97) % Hemoglobin (13.0-17.5) gm/dL Sodium (137-145) mmol/L BUN (9-20) mg/dL Creatinine (0.66-1.25) mg/dL Glucose (74-99) mg/dL POC Glucose (mg/dL) 256 H (70-110) mg/dL Plasma Lactic Acid Jae (0.7-2.0) mmol/L Calcium (8.4-10.2) mg/dL Phosphorus (2.5-4.5) mg/dL AST (17-59) U/L ALT (4-49) U/L Alkaline Phosphatase (38-126) U/L Total Protein (6.3-8.2) g/dL Albumin (3.5-5.0) g/dL Crossmatch Microbiology - Last 24 Hours (Table) 04/05/24 03:59 Gram Stain - Final Sputum Sputum Culture - Final Pseudomonas aeruginosa 04/05/24 08:26 Blood Culture - Preliminary Blood Assessment and Plan (1) Acute kidney injury Current Visit: Yes Status: Acute Priority: High Code(s): N17.9 - ACUTE KIDNEY FAILURE, UNSPECIFIED SNOMED Code(s): 67301748 (2) Elevated LFTs Current Visit: Yes Status: Acute Priority: High Code(s): R79.89 - OTHER SPECIFIED ABNORMAL FINDINGS OF BLOOD CHEMISTRY SNOMED Code(s): 529904087 (3) GI bleed Current Visit: Yes Status: Acute Priority: High Code(s): K92.2 - GASTROINTESTINAL HEMORRHAGE, UNSPECIFIED SNOMED Code(s): 63192490 (4) AAA (abdominal aortic aneurysm) Current Visit: Yes Status: Acute Priority: High Code(s): I71.4 - ABDOMINAL AORTIC ANEURYSM, WITHOUT RUPTURE * DO NOT USE * SNOMED Code(s): 095222920 (5) Coagulopathy Current Visit: Yes Status: Acute Priority: High Code(s): D68.9 - COAGULATION DEFECT, UNSPECIFIED SNOMED Code(s): 42674852 Plan: GI bleed, coagulopathy: Presented to the ER for lightheadedness and rectal bleeding. Upon review of notes it appears patient had been experiencing diarrhea, and had bright red stools, and associated dizziness and syncopal episode. -CT chest abdomen pelvis showed resolution of the large spiculated mass seen on prior CT chest dated 03/05/2022, been replaced by severe pleural parenchymal scarring but with no suspicious mass. Stable 4.2 x 4.3 cm aneurysmal dilatation ascending thoracic aorta. Extravasation of contrast into the right colon and transverse colon consistent with acute hemorrhage/GI bleed. Aortic stent graft with large [place] aneurysm. No evidence of endoleak. -Patient underwent exploratory laparotomy on 04/04/2024 with subtotal colectomy with end ileostomy. He then underwent EGD on 04/05 which showed old blood noted in the stomach and duodenum. Gastritis and duodenitis noted. Some fresh blood seen in the third portion of the duodenum and suctioning was being performed with no obvious mucosal lesion or ulcers identified. Concern for small bowel source of bleeding and rule out aortoenteric fistula. -Vascular surgery consulted -CTA of the abdomen was obtained which showed postsurgical changes within the abdomen with free air. Aortobiiliac endograft changes. Size of the excluded aneurysm measures up to 6.7 cm. Additional stenting within the aneurysmal right common iliac artery measuring up to 2.5 cm with additional stenting of the left common iliac artery. Hypodensity within the right iliac limb. No evidence of active intraluminal hemorrhage. Periorbital edema in the liver. -Patient has been following with pulmonology for previously noted lung mass and PET/CT obtained on 12/27/2023 was reviewed which showed focal areas of increased uptake within the right upper lobe masslike density. Scattered hilar and mediastinal areas of uptake suspicious. Right supraclavicular and left neck foci of uptake. Mild uptake within the right mid and lower lung [place] which favor mild inflammatory changes. Upon review of images, appeared to have uptake with abdomen, possibly in small bowel which was not reported on interpretation. -On admit CBC showed WBC 10.3, hemoglobin 8.7, platelets 77,000. Patient is s/p 6 units PRBCs and 1 unit of FFP. Today hemoglobin stable at 9.0. Plts 53,000. -On admit PT/INR was within normal limits. Repeat coags showing PT 17.9, INR 1.8, fibrinogen 217. Patient has also had a significant increase in LFTs with AST 2789, ALT 2564. Bilirubin normal at 0.5. -Coagulopathy likely r/t shock liver due to GI hemorrhage -Goal of INR less than 2.0. S/p 1 unit of FFP. Coags today pending -Coags and CBC daily -Will obtain tagged RBC scan to identify source of GI bleed. Pending results may need to be considered for endovascular coiling attests: I have seen and examined patient, performed H&P, developed impression and plan of care. Discussed with dictator. Agree with documentation, dictated as a scribe
--- NOTE | 2024-04-07 15:56 | P.PN ---
Subjective Progress Note Date: 04/07/24 Principal diagnosis: GI bleed Patient is a 73-year-old pleasant white male came to the emergency room this afternoon after having 2 episodes of bloody bowel movements at home. He complained of some vague lower abdominal discomfort but no nausea vomiting. Came to the emergency room this afternoon and initially was noted to have a hemoglobin of 12.1 g/dL. However he was noted to be somewhat hypotensive and was resuscitated with fluids. While in the ER he had several large maroon- colored stools with large clots and continues remain hypertensive. He received 2 units of PRBC transfusion prior to which his hemoglobin dropped to 9.5 g/dL. He was transferred to the intensive care unit. Since being in the ICU he had another 2 episodes of large bloody bowel movements with dark clots. He denies any abdominal pain at this time. No nausea vomiting. He received 2 units of PRBC transfusion and repeat CBC is pending at this time. He denies being on any any anticoagulation. In the ER he did have CT abdomen and pelvis/angiogram performed which revealed active extravasation of the contrast into the right colon and transverse colon suggestive of active GI bleed. His last colonoscopy done in November of this year revealed 1 cm cecal polyp and a 5 mm transverse colon polyp that was removed. 04/05/2024 Patient seen and examined today as a follow-up. He remains in the ICU. Yesterday he he underwent exploratory laparotomy with subtotal colectomy with end ileostomy with general surgery. He remains sedated and intubated. He is on pressors, having some bloody output from ostomy. No rectal bleeding. He was transfused for total of 4 units yesterday. Repeat hemoglobin this morning is 8.7, platelets 77,000. Patient continued to have further bleeding out of the ileostomy for total of 650 cc today. 04/06/2024 Patient seen and examined in the ICU remains intubated and sedated. Had significant resuscitative measures through the night on pressors, bicarb and IV fluids. Yesterday he underwent upper endoscopy with old blood noted in the stomach and duodenum, gastritis and duodenitis with fresh dilated blood seen in the third portion of the duodenum but no obvious mucosal lesion or ulcers identified. Overnight bleeding has actually improved there wa about 100 cc dark blood in ileostomy bag and reportedly 200 out of OG tube. Hemoglobin this morning was 6.4. Was receiving current fifth unit of blood. Significantly elevated AST and ALT in the . CTA abdomen pelvis with no gross evidence of active intraluminal hemorrhage. 04/07/2024 Patient seen and examined in the ICU. He remains intubated and sedated. His family is at the bedside. Pressors have been decreased however patient ventilatory settings were increased. He has had decreased bloody output from his ileostomy and no output from his OG tube. Nursing reports approximately 30 to 60 mL of dark blood in ostomy bag. Hemoglobin stable at 9.0 Objective - Vital Signs Vital signs: Vital Signs Temp 98.1 F 04/07/24 04:00 Pulse 104 H 04/07/24 08:21 Resp 22 04/07/24 07:00 BP 132/68 04/07/24 07:00 Pulse Ox 94 L 04/07/24 07:00 FiO2 100 04/07/24 09:30 Intake & Output 04/06/24 04/07/24 04/07/24 18:59 06:59 18:59 Intake Total 2857.642 2245.730 387.646 Output Total 415 1445 65 Balance 2442.642 800.730 322.646 Weight 81.7 kg Intake: IV 1210 1820 135 Dextrose 5% in Water 1, 825 600 50 000 ml @ 50 mls/hr IV . Q23H [facility] with Sodium Bicarb (1 Meq/ml) 150 ml Rx#:[id number] Piperacillin-Tazobactam 3 200 .375 gm In Sodium Chloride 0.9% 100 ml @ 25 mls/hr IVPB Q8H [facility] Rx#: [id number] TPN 385 1020 85 Intake, IV Titration 689.642 425.730 252.646 Amount Cisatracurium 200 mg In 60.43 188.894 Sodium Chloride 0.9% 180 ml @ 1 MCG/KG/MIN 4.002 mls/hr IV .Q24H [facility] Rx#: [id number] Mvi, Adult No.4 with Vit 248.5 K 10 ml Trace (Conc-1Ml/ Dose) 1 ml Sodium Acetate 40 meq Magnesium Sulfate gm 1 gm Calcium Gluconate 1 gm Potassium Acetate 10 meq In Amino Acid 5%-D15w 1,000 ml @ 85 mls/hr IV .BY DURATION [facility] Rx#:[id number] Norepinephrine 4 mg In 196.541 149.844 63.752 Sodium Chloride 0.9% 250 ml @ 0.03 MCG/KG/MIN 7. 258 mls/hr IV .Q24H [facility] Rx#:[id number] Vasopressin 60 unit In 6.044 0 Sodium Chloride 0.9% 150 ml @ 0.03 UNITS/MIN 4.59 mls/hr IV .Q24H [facility] Rx#: [id number] propofoL 1,000 mg In 178.127 275.886 Empty Bag 1 bag @ 15 MCG/ KG/MIN 5.715 mls/hr IV . [id number] [facility] Rx#:[id number] Blood Product 958 Ffp 24 Cpd Unit 359 [id number] Rc As-1 Unit 310 [id number] Rc Pheresis 2 As3 Unit 289 [id number] Output: Urine 415 1285 65 Stool 160 Other: Voiding Method Indwelling Catheter Indwelling Catheter ABP, PAP, CO, CI - Last Documented Arterial Blood Pressure 59/59 - Exam General appearance: The patient is dated and intubated. HET: Head is normocephalic and atraumatic. Neck: Supple without lymphadenopathy. Abdomen: Soft, nondistended, right ileostomy with small amount of dark bloody output. Incision with dressing with marked drainage. Extremities: Normal skin color and turgor. No pedal edema. Bilateral hands and fingertips cool to the touch, mottled and purple. Bilateral feet cool to the touch with mottled toes. Skin: No rashes, no jaundice Neurological: Sedated and intubated. - Labs CBC & Chem 7: 04/07/24 06:20 04/07/24 06:20 Labs: Abnormal Lab Results - Last 24 Hours (Table) 04/04/24 04/06/24 04/06/24 Range/Units 16:35 10:24 10:24 WBC 11.1 H (3.8-10.6) k/uL RBC 2.64 L (4.30-5.90) m/uL Hgb 8.3 L D (13.0-17.5) gm/dL Hct 25.1 L (39.0-53.0) % RDW 15.7 H (11.5-15.5) % Plt Count 67 L (150-450) k/uL Neutrophils # (Manual) (1.3-7.7) k/uL Metamyelocytes # (Man) (0) k/uL Myelocytes # (Manual) (0) k/uL PT (10.0-12.5) sec INR (<1.2) APTT (22.0-30.0) sec ABG pCO2 (35-45) mmHg ABG pO2 (83-108) mmHg ABG HCO3 (21-25) mmol/L ABG Total CO2 (19-24) mmol/L ABG O2 Saturation (94-97) % Hemoglobin (13.0-17.5) gm/dL Sodium (137-145) mmol/L BUN (9-20) mg/dL Creatinine (0.66-1.25) mg/dL Glucose (74-99) mg/dL POC Glucose (mg/dL) (70-110) mg/dL Plasma Lactic Acid Jae (0.7-2.0) mmol/L Calcium (8.4-10.2) mg/dL Phosphorus (2.5-4.5) mg/dL AST (17-59) U/L ALT (4-49) U/L Alkaline Phosphatase (38-126) U/L Lactate Dehydrogenase 1097 H (120-246) U/L Total Protein (6.3-8.2) g/dL Albumin (3.5-5.0) g/dL Crossmatch See Detail 04/06/24 04/06/24 04/06/24 Range/Units 14:12 14:15 14:15 WBC (3.8-10.6) k/uL RBC (4.30-5.90) m/uL Hgb (13.0-17.5) gm/dL Hct (39.0-53.0) % RDW (11.5-15.5) % Plt Count (150-450) k/uL Neutrophils # (Manual) (1.3-7.7) k/uL Metamyelocytes # (Man) (0) k/uL Myelocytes # (Manual) (0) k/uL PT 14.6 H (10.0-12.5) sec INR 1.4 H (<1.2) APTT 34.8 H (22.0-30.0) sec ABG pCO2 (35-45) mmHg ABG pO2 (83-108) mmHg ABG HCO3 (21-25) mmol/L ABG Total CO2 (19-24) mmol/L ABG O2 Saturation (94-97) % Hemoglobin (13.0-17.5) gm/dL Sodium (137-145) mmol/L BUN (9-20) mg/dL Creatinine (0.66-1.25) mg/dL Glucose (74-99) mg/dL POC Glucose (mg/dL) 257 H (70-110) mg/dL Plasma Lactic Acid Jae 2.8 H* (0.7-2.0) mmol/L Calcium (8.4-10.2) mg/dL Phosphorus (2.5-4.5) mg/dL AST (17-59) U/L ALT (4-49) U/L Alkaline Phosphatase (38-126) U/L Lactate Dehydrogenase (120-246) U/L Total Protein (6.3-8.2) g/dL Albumin (3.5-5.0) g/dL Crossmatch 04/06/24 04/06/24 04/06/24 Range/Units 16:13 16:14 21:03 WBC (3.8-10.6) k/uL RBC 2.86 L (4.30-5.90) m/uL Hgb 8.9 L (13.0-17.5) gm/dL Hct 25.8 L (39.0-53.0) % RDW 16.3 H (11.5-15.5) % Plt Count 57 L (150-450) k/uL Neutrophils # (Manual) (1.3-7.7) k/uL Metamyelocytes # (Man) (0) k/uL Myelocytes # (Manual) (0) k/uL PT (10.0-12.5) sec INR (<1.2) APTT (22.0-30.0) sec ABG pCO2 (35-45) mmHg ABG pO2 (83-108) mmHg ABG HCO3 (21-25) mmol/L ABG Total CO2 (19-24) mmol/L ABG O2 Saturation (94-97) % Hemoglobin (13.0-17.5) gm/dL Sodium (137-145) mmol/L BUN (9-20) mg/dL Creatinine (0.66-1.25) mg/dL Glucose (74-99) mg/dL POC Glucose (mg/dL) 229 H 283 H (70-110) mg/dL Plasma Lactic Acid Jae (0.7-2.0) mmol/L Calcium (8.4-10.2) mg/dL Phosphorus (2.5-4.5) mg/dL AST (17-59) U/L ALT (4-49) U/L Alkaline Phosphatase (38-126) U/L Lactate Dehydrogenase (120-246) U/L Total Protein (6.3-8.2) g/dL Albumin (3.5-5.0) g/dL Crossmatch 04/07/24 04/07/24 04/07/24 Range/Units 05:34 06:20 06:20 WBC 11.9 H (3.8-10.6) k/uL RBC 2.87 L (4.30-5.90) m/uL Hgb 9.0 L (13.0-17.5) gm/dL Hct 26.3 L (39.0-53.0) % RDW 16.9 H (11.5-15.5) % Plt Count 53 L (150-450) k/uL Neutrophils # (Manual) 9.80 H (1.3-7.7) k/uL Metamyelocytes # (Man) 0.48 H (0) k/uL Myelocytes # (Manual) 0.12 H (0) k/uL PT (10.0-12.5) sec INR (<1.2) APTT (22.0-30.0) sec ABG pCO2 54 H (35-45) mmHg ABG pO2 47 L* (83-108) mmHg ABG HCO3 30 H (21-25) mmol/L ABG Total CO2 32 H (19-24) mmol/L ABG O2 Saturation 82.5 L (94-97) % Hemoglobin 9.4 L (13.0-17.5) gm/dL Sodium 135 L (137-145) mmol/L BUN 70 H (9-20) mg/dL Creatinine 2.33 H (0.66-1.25) mg/dL Glucose 225 H (74-99) mg/dL POC Glucose (mg/dL) (70-110) mg/dL Plasma Lactic Acid Jae (0.7-2.0) mmol/L Calcium 7.3 L (8.4-10.2) mg/dL Phosphorus 5.0 H (2.5-4.5) mg/dL AST 1205 H (17-59) U/L ALT 2159 H (4-49) U/L Alkaline Phosphatase 34 L (38-126) U/L Lactate Dehydrogenase (120-246) U/L Total Protein 3.4 L (6.3-8.2) g/dL Albumin 1.7 L (3.5-5.0) g/dL Crossmatch Microbiology - Last 24 Hours (Table) 04/05/24 03:59 Gram Stain - Final Sputum Sputum Culture - Final Pseudomonas aeruginosa 04/05/24 08:26 Blood Culture - Preliminary Blood Assessment and Plan (1) GI bleed Narrative/Plan: 73-year-old patient who presents with acute lower GI bleed. She started having maroon-colored stools with large clots since this morning came to the emergency room this afternoon and since then he had at least 3-4 large bloody bowel movements. Remains hypotensive. Was resuscitated with IV fluids and 2 mL of PRBC transfusion and repeat CBC still pending. Initial hemoglobin at the time of admission the hospital was 12.1 g/dL and repeat 1 prior to blood transfusion was 9.1 g/dL. Since being in the ICU he continues to remain hemodynamically unstable and passing large bloody bowel movements. On review of his records he did have a colonoscopy in November of this year that revealed 2 small polyps in the cecum and transverse colon that were removed. CT angiogram did reveal active extravasation of the contrast in the right colon and transverse colon consistent with active colonic bleed. Was seen by general surgery and taken for exploratory laparotomy and subtotal colectomy with end ileostomy. Continue to monitor blood loss. Upper endoscopy completed. CTA abdomen pelvis with no active intraluminal hemorrhage. Vascular surgery following who has reviewed and does not believe there is any aortoenteric fistula Continue with the supportive measures Current Visit: Yes Status: Acute Priority: High Code(s): K92.2 - GASTROINTESTINAL HEMORRHAGE, UNSPECIFIED SNOMED Code(s): 71396999 (2) AAA (abdominal aortic aneurysm) Narrative/Plan: Status post graft several years ago. No evidence of aortoenteric fistula per vascular surgery Current Visit: Yes Status: Acute Priority: High Code(s): I71.4 - ABDOMINAL AORTIC ANEURYSM, WITHOUT RUPTURE * DO NOT USE * SNOMED Code(s): 251192281 (3) Acute kidney injury Current Visit: Yes Status: Acute Priority: High Code(s): N17.9 - ACUTE KIDNEY FAILURE, UNSPECIFIED SNOMED Code(s): 90938491 (4) COPD exacerbation Current Visit: No Status: Acute Code(s): J44.1 - CHRONIC OBSTRUCTIVE PULMONARY DISEASE W (ACUTE) EXACERBATION SNOMED Code(s): 848747142 Plan: 1. Continue symptomatic and supportive care 2. Continue supportive care in the ICU 3. Daily CBC, transfuse for hemoglobin less than 7 4. Protonix 40 mg IV for GI prophylaxis 5. Continue to monitor blood loss 6. Status post upper endoscopy 7. Daily CMP 8. Vascular surgery on consultation, no reported evidence of aortoenteric fistula 9. Continue with general surgery recommendations Thank you for this consultation, we will continue to follow closely. Dr. Dipesh Rojas I agree with the dictator's note, documented as a scribe by Yamileth Vásquez.
[2024-04-07] MEDS: FUROSEMIDE 10 MG/ML 10 ML VIAL IV STA (17:52)
[2024-04-07 20:23] LABS: Glucose,Whole Blood 199 mg/dL (70-110)
[2024-04-07 20:24] LABS: Glucose,Whole Blood 226 mg/dL (70-110)
--- NOTE | 2024-04-07 22:39 | P.PN ---
Subjective Patient seen and evaluated at bedside, no acute events overnight.patient still critical/guarded prognosis. , Objective - Vital Signs Vital signs: Vital Signs Temp 97.5 F L 04/07/24 20:00 Pulse 89 04/07/24 21:30 Resp 22 04/07/24 21:30 BP 114/63 04/07/24 21:30 Pulse Ox 96 04/07/24 21:30 FiO2 85 04/07/24 20:07 Intake & Output 04/07/24 04/07/24 04/08/24 06:59 18:59 06:59 Intake Total 3045.230 2692.563 255 Output Total 1445 215 25 Balance 7015.497 2668.563 230 Weight 81.7 kg Intake: IV 1820 1570 255 Dextrose 5% in Water 1, 600 250 000 ml @ 50 mls/hr IV . Q23H BOBBY with Sodium Bicarb (1 Meq/ml) 150 ml Rx#:[id number] Piperacillin-Tazobactam 3 200 300 .375 gm In Sodium Chloride 0.9% 100 ml @ 25 mls/hr IVPB Q8H BOBBY Rx#: [id number] TPN 1020 1020 255 Intake, IV Titration 1225.230 812.563 Amount Cisatracurium 200 mg In 200.000 Sodium Chloride 0.9% 180 ml @ 1 MCG/KG/MIN 4.002 mls/hr IV .Q24H BOBBY Rx#: [id number] Mvi, Adult No.4 with Vit 799.5 K 10 ml Trace (Conc-1Ml/ Dose) 1 ml Sodium Acetate 40 meq Magnesium Sulfate gm 1 gm Calcium Gluconate 1 gm Potassium Acetate 10 meq In Amino Acid 5%-D15w 1,000 ml @ 85 mls/hr IV .BY DURATION BOBBY Rx#:[id number] Norepinephrine 4 mg In 149.844 254.000 Sodium Chloride 0.9% 250 ml @ 0.03 MCG/KG/MIN 7. 258 mls/hr IV .Q24H BOBBY Rx#:[id number] Sodium Chloride 0.9% 80 75.866 ml @ 0.25 MCG/KG/HR 1.668 mls/hr IV .Q24H BOBBY with fentaNYL (PF) 1,000 mcg Rx#:[id number] Vasopressin 60 unit In 0 82.697 Sodium Chloride 0.9% 150 ml @ 0.03 UNITS/MIN 4.59 mls/hr IV .Q24H BOBBY Rx#: [id number] propofoL 1,000 mg In 275.886 200 Empty Bag 1 bag @ 15 MCG/ KG/MIN 5.715 mls/hr IV . [id number] BOBBY Rx#:[id number] Blood Product 310 Rc As-1 Unit 310 [id number] Output: Urine 1285 215 25 Stool 160 Other: Voiding Method Indwelling Catheter Indwelling Catheter Indwelling Catheter ABP, PAP, CO, CI - Last Documented Arterial Blood Pressure 96/58 - Exam gen: nad, intubated cv: rrr pul: ventilated abd: soft, distended, non surgical abdomen/non peritoneal, surgical c/d/i - Labs CBC & Chem 7: 04/07/24 06:20 04/07/24 06:20 Labs: Abnormal Lab Results - Last 24 Hours (Table) 04/04/24 04/07/24 04/07/24 Range/Units 16:35 05:34 06:20 WBC (3.8-10.6) k/uL RBC (4.30-5.90) m/uL Hgb (13.0-17.5) gm/dL Hct (39.0-53.0) % RDW (11.5-15.5) % Plt Count (150-450) k/uL Neutrophils # (Manual) (1.3-7.7) k/uL Metamyelocytes # (Man) (0) k/uL Myelocytes # (Manual) (0) k/uL APTT (22.0-30.0) sec ABG pCO2 54 H (35-45) mmHg ABG pO2 47 L* (83-108) mmHg ABG HCO3 30 H (21-25) mmol/L ABG Total CO2 32 H (19-24) mmol/L ABG O2 Saturation 82.5 L (94-97) % Hemoglobin 9.4 L (13.0-17.5) gm/dL Sodium 135 L (137-145) mmol/L BUN 70 H (9-20) mg/dL Creatinine 2.33 H (0.66-1.25) mg/dL Glucose 225 H (74-99) mg/dL POC Glucose (mg/dL) (70-110) mg/dL Calcium 7.3 L (8.4-10.2) mg/dL Phosphorus 5.0 H (2.5-4.5) mg/dL AST 1205 H (17-59) U/L ALT 2159 H (4-49) U/L Alkaline Phosphatase 34 L (38-126) U/L Total Protein 3.4 L (6.3-8.2) g/dL Albumin 1.7 L (3.5-5.0) g/dL Crossmatch See Detail 04/07/24 04/07/24 04/07/24 Range/Units 06:20 10:37 13:11 WBC 11.9 H (3.8-10.6) k/uL RBC 2.87 L (4.30-5.90) m/uL Hgb 9.0 L (13.0-17.5) gm/dL Hct 26.3 L (39.0-53.0) % RDW 16.9 H (11.5-15.5) % Plt Count 53 L (150-450) k/uL Neutrophils # (Manual) 9.80 H (1.3-7.7) k/uL Metamyelocytes # (Man) 0.48 H (0) k/uL Myelocytes # (Manual) 0.12 H (0) k/uL APTT (22.0-30.0) sec ABG pCO2 (35-45) mmHg ABG pO2 (83-108) mmHg ABG HCO3 (21-25) mmol/L ABG Total CO2 (19-24) mmol/L ABG O2 Saturation (94-97) % Hemoglobin (13.0-17.5) gm/dL Sodium (137-145) mmol/L BUN (9-20) mg/dL Creatinine (0.66-1.25) mg/dL Glucose (74-99) mg/dL POC Glucose (mg/dL) 256 H 186 H (70-110) mg/dL Calcium (8.4-10.2) mg/dL Phosphorus (2.5-4.5) mg/dL AST (17-59) U/L ALT (4-49) U/L Alkaline Phosphatase (38-126) U/L Total Protein (6.3-8.2) g/dL Albumin (3.5-5.0) g/dL Crossmatch 04/07/24 04/07/24 04/07/24 Range/Units 13:15 20:19 20:22 WBC (3.8-10.6) k/uL RBC (4.30-5.90) m/uL Hgb (13.0-17.5) gm/dL Hct (39.0-53.0) % RDW (11.5-15.5) % Plt Count (150-450) k/uL Neutrophils # (Manual) (1.3-7.7) k/uL Metamyelocytes # (Man) (0) k/uL Myelocytes # (Manual) (0) k/uL APTT 32.1 H (22.0-30.0) sec ABG pCO2 (35-45) mmHg ABG pO2 (83-108) mmHg ABG HCO3 (21-25) mmol/L ABG Total CO2 (19-24) mmol/L ABG O2 Saturation (94-97) % Hemoglobin (13.0-17.5) gm/dL Sodium (137-145) mmol/L BUN (9-20) mg/dL Creatinine (0.66-1.25) mg/dL Glucose (74-99) mg/dL POC Glucose (mg/dL) 199 H 226 H (70-110) mg/dL Calcium (8.4-10.2) mg/dL Phosphorus (2.5-4.5) mg/dL AST (17-59) U/L ALT (4-49) U/L Alkaline Phosphatase (38-126) U/L Total Protein (6.3-8.2) g/dL Albumin (3.5-5.0) g/dL Crossmatch Microbiology - Last 24 Hours (Table) 04/05/24 08:26 Blood Culture - Preliminary Blood 04/05/24 03:59 Gram Stain - Final Sputum Sputum Culture - Final Pseudomonas aeruginosa Assessment and Plan Assessment: 73 yo male pod #3 s/p subtotal colectomy for massive bleeding -hypotensive/hypovolemic-tranfuse 1 unit of packed red blood cells -continue to monitor hgb Time with Patient: Less than 30
[2024-04-07 23:19] LABS: Anisocytosis Slight; HGB 10.9 gm/dL (13.0-17.5); MCH 31.3 pg (25.0-35.0); MCHC 33.1 g/dL (31.0-37.0); MCV 94.6 fL (80.0-100.0); Mean Platelet Volume 10.3; RBC 3.49 m/uL (4.30-5.90); RDW 16.1 % (11.5-15.5); WBC 18.6 k/uL (3.8-10.6)
[2024-04-07 23:26] LABS: Platelet Count 68 k/uL (150-450)
[2024-04-07 23:31] LABS: African American GFR (CKD) 24 (>60 ml/min/1.73 sqM); Anion Gap 3 mmol/L; Blood Urea Nitrogen 85 mg/dL (9-20); Calcium 7.8 mg/dL (8.4-10.2); Carbon Dioxide 30 mmol/L (22-30); Chloride 100 mmol/L (98-107); Glucose 194 mg/dL (74-99); Non-African American GFR(CKD) 21 (>60 ml/min/1.73 sqM); Potassium 4.7 mmol/L (3.5-5.1); Sodium 133 mmol/L (137-145)
[2024-04-07] MEDS: AMIODARONE 360 MG in DEXTROSE 5% IN WATER 200 ML IV ONE (23:52)
[2024-04-07] MEDS: DEXTROSE 5% IN WATER 100 ML with AMIODARONE 150 MG IV ONE (23:52)
[2024-04-08 00:43] LABS: Glucose,Whole Blood 206 mg/dL (70-110)
[2024-04-08 05:59] LABS: ABG Oxygen Saturation 99.4 % (94-97); ABG PO2 202 mmHg (83-108); Allen Test Performed? Yes
[2024-04-08] MEDS ORDERED: AMIODARONE 450 MG in DEXTROSE 5% IN WATER 250 ML IV SCH (06:00)
[2024-04-08 06:01] LABS: Glucose,Whole Blood 98 mg/dL (70-110)
[2024-04-08 06:01] LABS: ABG PCO2 >98 mmHg (35-45); ABG PH 7.05 (7.35-7.45)
[2024-04-08 06:19] LABS: HCT 36.3 % (39.0-53.0); HGB 11.3 gm/dL (13.0-17.5); Hypochromasia Marked; MCH 30.4 pg (25.0-35.0); MCHC 31.2 g/dL (31.0-37.0); MCV 97.4 fL (80.0-100.0); Mean Platelet Volume 9.1; RBC 3.73 m/uL (4.30-5.90); RDW 15.4 % (11.5-15.5); WBC 23.1 k/uL (3.8-10.6)
[2024-04-08 06:30] LABS: Platelet Count 84 k/uL (150-450)
[2024-04-08 06:41] LABS: AST 554 U/L (17-59); African American GFR (CKD) 22 (>60 ml/min/1.73 sqM); Albumin 2.1 g/dL (3.5-5.0); Alkaline Phosphatase 71 U/L (38-126); Anion Gap 5 mmol/L; Blood Urea Nitrogen 90 mg/dL (9-20); Calcium 7.9 mg/dL (8.4-10.2); Carbon Dioxide 29 mmol/L (22-30); Chloride 100 mmol/L (98-107); Glucose 86 mg/dL (74-99); Magnesium 2.5 mg/dL (1.6-2.3); Non-African American GFR(CKD) 19 (>60 ml/min/1.73 sqM); Phosphorus 7.3 mg/dL (2.5-4.5); Potassium 5.2 mmol/L (3.5-5.1); Sodium 134 mmol/L (137-145); Total Bilirubin 1.1 mg/dL (0.2-1.3)
[2024-04-08 06:51] VITALS: BP 100/62
[2024-04-08 06:59] LABS: ALT 1914 U/L (4-49)
--- NOTE | 2024-04-08 06:59 | P.PN ---
Subjective Progress Note Date: 04/08/24 The patient is a 73-year-old gentleman with a past medical history significant for smoking and alcohol use and COPD as well as hypertension and dyslipidemia and history of abdominal aortic aneurysm with prior repair according to the charts we consulted to see for further evaluation of pericardial effusion. The patient currently is intubated and he is on mechanical ventilation and the history was taken from the chart. The patient presented to the hospital few days ago with dizziness and lightheadedness and possibly an episode of loss of consciousness as well as gastrointestinal bleeding. He was experiencing blood per rectum. Giving the severity of his symptoms he was admitted to the intensive care unit. General surgery service was consulted and recommended doing surgery giving that the GI bleeding was more profound. The patient underwent a colectomy. Subsequently he was brought back to the intensive care unit. He was intubated on mechanical ventilation and also he was hypotensive requiring norepinephrine. Also the patient was in acute renal failure. We consulted to see the patient because an echocardiogram was performed and showed moderate pericardial effusion with no evidence of tamponade physiology. The ejection fraction of the LV was within normal limits. Currently the patient is hemodynamically unstable and he is on norepinephrine. No prior cardiac history but according to his family ember he was diagnosed with thoracic aortic aneurysm which has been monitored regularly. Otherwise no history of coronary artery disease or congestive heart failure or cardiac arrhythmia. The EKG showed sinus mechanism with diffuse nonspecific ST and T wave abnormalities noted. The physical examination is remarkable for regular rhythm with a distant heart sounds and systolic murmur at the right upper sternal border with diminished breathing sounds bilaterally and no edema was noted in the lower extremities. April 08 2024 The patient was seen and evaluated this morning with he continues to be intubated on mechanical ventilation but he is requiring more norepinephrine. Going to repeat the echo to assess for any change in the size of pericardial effusion. Meanwhile he went into atrial fibrillation with RVR and subsequently he was started on amiodarone and converted to normal sinus mechanism. The physical examination is remarkable for intubated patient on mechanical ventilation with regular rate and rhythm and distant heart sounds and diminished breathing sounds bilaterally. Assessment Gastrointestinal bleeding Status post exploratory laparotomy and colectomy Anemia secondary to blood loss Renal failure Shock likely to be hypovolemic or multifactorial History of smoking History of alcohol use Pericardial effusion on recent echocardiogram Paroxysmal atrial fibrillation currently in normal sinus mechanism Plan Continue hemodynamic support Monitor the pericardial effusion and obtain an echo this morning No evidence of tamponade physiology on the last echocardiogram Avoid any aggressive diuretics use Follow-up with the patient Objective - Vital Signs Vital signs: Vital Signs Temp 97.5 F L 04/07/24 20:00 Pulse 64 04/08/24 06:45 Resp 24 04/08/24 06:45 BP 100/62 04/08/24 05:15 Pulse Ox 99 04/08/24 06:45 FiO2 85 04/08/24 06:02 Intake & Output 04/07/24 04/07/24 04/08/24 06:59 18:59 06:59 Intake Total 3045.230 2692.563 2599.550 Output Total 1445 215 480 Balance 3895.313 8742.563 2119.550 Weight 81.7 kg 84.1 kg Intake: IV 1820 1570 1120 Dextrose 5% in Water 1, 600 250 000 ml @ 50 mls/hr IV . Q23H [facility]BY with Sodium Bicarb (1 Meq/ml) 150 ml Rx#:[id number] Piperacillin-Tazobactam 3 200 300 100 .375 gm In Sodium Chloride 0.9% 100 ml @ 25 mls/hr IVPB Q8H [facility]BY Rx#: [id number] TPN 1020 1020 1020 Intake, IV Titration 1225.230 332.657 3176.550 Amount Cisatracurium 200 mg In 200.000 Sodium Chloride 0.9% 180 ml @ 1 MCG/KG/MIN 4.002 mls/hr IV .Q24H [facility]BY Rx#: [id number] Mvi, Adult No.4 with Vit 799.5 1048 K 10 ml Trace (Conc-1Ml/ Dose) 1 ml Sodium Acetate 40 meq Magnesium Sulfate gm 1 gm Calcium Gluconate 1 gm Potassium Acetate 10 meq In Amino Acid 5%-D15w 1,000 ml @ 85 mls/hr IV .BY DURATION BOBBY Rx#:[id number] Norepinephrine 4 mg In 149.844 254.000 431.550 Sodium Chloride 0.9% 250 ml @ 0.03 MCG/KG/MIN 7. 258 mls/hr IV .Q24H [facility]BY Rx#:[id number] Sodium Chloride 0.9% 80 75.866 ml @ 0.25 MCG/KG/HR 1.668 mls/hr IV .Q24H [facility]BY with fentaNYL (PF) 1,000 mcg Rx#:[id number] Vasopressin 60 unit In 0 82.697 Sodium Chloride 0.9% 150 ml @ 0.03 UNITS/MIN 4.59 mls/hr IV .Q24H [facility]BY Rx#: [id number] propofoL 1,000 mg In 275.886 200 Empty Bag 1 bag @ 15 MCG/ KG/MIN 5.715 mls/hr IV . [id number] BOBBY Rx#:[id number] Blood Product 310 Rc As-1 Unit 310 [id number] Output: Gastric Drainage 50 Urine 1285 215 430 Stool 160 Other: Voiding Method Indwelling Catheter Indwelling Catheter Indwelling Catheter ABP, PAP, CO, CI - Last Documented Arterial Blood Pressure 113/46 - Labs CBC & Chem 7: 04/08/24 06:00 04/07/24 23:04 Labs: Abnormal Lab Results - Last 24 Hours (Table) 04/04/24 04/07/24 04/07/24 Range/Units 16:35 06:20 06:20 WBC (3.8-10.6) k/uL RBC (4.30-5.90) m/uL Hgb (13.0-17.5) gm/dL Hct (39.0-53.0) % RDW (11.5-15.5) % Plt Count (150-450) k/uL Neutrophils # (Manual) 9.80 H (1.3-7.7) k/uL Metamyelocytes # (Man) 0.48 H (0) k/uL Myelocytes # (Manual) 0.12 H (0) k/uL APTT (22.0-30.0) sec ABG pH (7.35-7.45) ABG pCO2 (35-45) mmHg ABG pO2 (83-108) mmHg ABG O2 Saturation (94-97) % Hemoglobin (13.0-17.5) gm/dL Sodium 135 L (137-145) mmol/L BUN 70 H (9-20) mg/dL Creatinine 2.33 H (0.66-1.25) mg/dL Glucose 225 H (74-99) mg/dL POC Glucose (mg/dL) (70-110) mg/dL Calcium 7.3 L (8.4-10.2) mg/dL Phosphorus 5.0 H (2.5-4.5) mg/dL AST 1205 H (17-59) U/L ALT 2159 H (4-49) U/L Alkaline Phosphatase 34 L (38-126) U/L Total Protein 3.4 L (6.3-8.2) g/dL Albumin 1.7 L (3.5-5.0) g/dL Crossmatch See Detail 04/07/24 04/07/24 04/07/24 Range/Units 10:37 13:11 13:15 WBC (3.8-10.6) k/uL RBC (4.30-5.90) m/uL Hgb (13.0-17.5) gm/dL Hct (39.0-53.0) % RDW (11.5-15.5) % Plt Count (150-450) k/uL Neutrophils # (Manual) (1.3-7.7) k/uL Metamyelocytes # (Man) (0) k/uL Myelocytes # (Manual) (0) k/uL APTT 32.1 H (22.0-30.0) sec ABG pH (7.35-7.45) ABG pCO2 (35-45) mmHg ABG pO2 (83-108) mmHg ABG O2 Saturation (94-97) % Hemoglobin (13.0-17.5) gm/dL Sodium (137-145) mmol/L BUN (9-20) mg/dL Creatinine (0.66-1.25) mg/dL Glucose (74-99) mg/dL POC Glucose (mg/dL) 256 H 186 H (70-110) mg/dL Calcium (8.4-10.2) mg/dL Phosphorus (2.5-4.5) mg/dL AST (17-59) U/L ALT (4-49) U/L Alkaline Phosphatase (38-126) U/L Total Protein (6.3-8.2) g/dL Albumin (3.5-5.0) g/dL Crossmatch 04/07/24 04/07/24 04/07/24 Range/Units 20:19 20:22 23:04 WBC 18.6 H (3.8-10.6) k/uL RBC 3.49 L (4.30-5.90) m/uL Hgb 10.9 L (13.0-17.5) gm/dL Hct 33.0 L (39.0-53.0) % RDW 16.1 H (11.5-15.5) % Plt Count 68 L (150-450) k/uL Neutrophils # (Manual) (1.3-7.7) k/uL Metamyelocytes # (Man) (0) k/uL Myelocytes # (Manual) (0) k/uL APTT (22.0-30.0) sec ABG pH (7.35-7.45) ABG pCO2 (35-45) mmHg ABG pO2 (83-108) mmHg ABG O2 Saturation (94-97) % Hemoglobin (13.0-17.5) gm/dL Sodium (137-145) mmol/L BUN (9-20) mg/dL Creatinine (0.66-1.25) mg/dL Glucose (74-99) mg/dL POC Glucose (mg/dL) 199 H 226 H (70-110) mg/dL Calcium (8.4-10.2) mg/dL Phosphorus (2.5-4.5) mg/dL AST (17-59) U/L ALT (4-49) U/L Alkaline Phosphatase (38-126) U/L Total Protein (6.3-8.2) g/dL Albumin (3.5-5.0) g/dL Crossmatch 04/07/24 04/08/24 04/08/24 Range/Units 23:04 00:41 05:55 WBC (3.8-10.6) k/uL RBC (4.30-5.90) m/uL Hgb (13.0-17.5) gm/dL Hct (39.0-53.0) % RDW (11.5-15.5) % Plt Count (150-450) k/uL Neutrophils # (Manual) (1.3-7.7) k/uL Metamyelocytes # (Man) (0) k/uL Myelocytes # (Manual) (0) k/uL APTT (22.0-30.0) sec ABG pH 7.05 L* (7.35-7.45) ABG pCO2 >98 H* (35-45) mmHg ABG pO2 202 H (83-108) mmHg ABG O2 Saturation 99.4 H (94-97) % Hemoglobin 11.5 L (13.0-17.5) gm/dL Sodium 133 L (137-145) mmol/L BUN 85 H (9-20) mg/dL Creatinine 2.87 H (0.66-1.25) mg/dL Glucose 194 H (74-99) mg/dL POC Glucose (mg/dL) 206 H (70-110) mg/dL Calcium 7.8 L (8.4-10.2) mg/dL Phosphorus (2.5-4.5) mg/dL AST (17-59) U/L ALT (4-49) U/L Alkaline Phosphatase (38-126) U/L Total Protein (6.3-8.2) g/dL Albumin (3.5-5.0) g/dL Crossmatch 04/08/24 Range/Units 06:00 WBC 23.1 H (3.8-10.6) k/uL RBC 3.73 L (4.30-5.90) m/uL Hgb 11.3 L (13.0-17.5) gm/dL Hct 36.3 L (39.0-53.0) % RDW (11.5-15.5) % Plt Count 84 L (150-450) k/uL Neutrophils # (Manual) (1.3-7.7) k/uL Metamyelocytes # (Man) (0) k/uL Myelocytes # (Manual) (0) k/uL APTT (22.0-30.0) sec ABG pH (7.35-7.45) ABG pCO2 (35-45) mmHg ABG pO2 (83-108) mmHg ABG O2 Saturation (94-97) % Hemoglobin (13.0-17.5) gm/dL Sodium (137-145) mmol/L BUN (9-20) mg/dL Creatinine (0.66-1.25) mg/dL Glucose (74-99) mg/dL POC Glucose (mg/dL) (70-110) mg/dL Calcium (8.4-10.2) mg/dL Phosphorus (2.5-4.5) mg/dL AST (17-59) U/L ALT (4-49) U/L Alkaline Phosphatase (38-126) U/L Total Protein (6.3-8.2) g/dL Albumin (3.5-5.0) g/dL Crossmatch Microbiology - Last 24 Hours (Table) 04/05/24 08:26 Blood Culture - Preliminary Blood 04/05/24 03:59 Gram Stain - Final Sputum Sputum Culture - Final Pseudomonas aeruginosa
--- NOTE | 2024-04-08 07:46 | XR ---
EXAMINATION TYPE: XR chest 1V portable DATE OF EXAM: 04/08/2024 COMPARISON: 04/07/2024 HISTORY: SOB, Follow Up FINDINGS: Indwelling tubes and catheters are unchanged. Persistent left lower lobe opacity with small effusion with improving aeration. Persistent patchy den sity right apical region. Stable appearance of the cardio-mediastinal structures at this time. Pleural effusion unchanged. IMPRESSION: 1. Persistent left lower lobe opacity with small effusion with improving aeration. Persistent patchy density right apical region.
--- NOTE | 2024-04-08 08:05 | P.PN ---
Subjective Progress Note Date: 04/08/24 Principal diagnosis: GI bleed Patient is a 73-year-old pleasant white male came to the emergency room this afternoon after having 2 episodes of bloody bowel movements at home. He complained of some vague lower abdominal discomfort but no nausea vomiting. Came to the emergency room this afternoon and initially was noted to have a hemoglobin of 12.1 g/dL. However he was noted to be somewhat hypotensive and was resuscitated with fluids. While in the ER he had several large maroon- colored stools with large clots and continues remain hypertensive. He received 2 units of PRBC transfusion prior to which his hemoglobin dropped to 9.5 g/dL. He was transferred to the intensive care unit. Since being in the ICU he had another 2 episodes of large bloody bowel movements with dark clots. He denies any abdominal pain at this time. No nausea vomiting. He received 2 units of PRBC transfusion and repeat CBC is pending at this time. He denies being on any any anticoagulation. In the ER he did have CT abdomen and pelvis/angiogram performed which revealed active extravasation of the contrast into the right colon and transverse colon suggestive of active GI bleed. His last colonoscopy done in November of this year revealed 1 cm cecal polyp and a 5 mm transverse colon polyp that was removed. 04/05/2024 Patient seen and examined today as a follow-up. He remains in the ICU. Yesterday he he underwent exploratory laparotomy with subtotal colectomy with end ileostomy with general surgery. He remains sedated and intubated. He is on pressors, having some bloody output from ostomy. No rectal bleeding. He was transfused for total of 4 units yesterday. Repeat hemoglobin this morning is 8.7, platelets 77,000. Patient continued to have further bleeding out of the ileostomy for total of 650 cc today. 04/06/2024 Patient seen and examined in the ICU remains intubated and sedated. Had significant resuscitative measures through the night on pressors, bicarb and IV fluids. Yesterday he underwent upper endoscopy with old blood noted in the stomach and duodenum, gastritis and duodenitis with fresh dilated blood seen in the third portion of the duodenum but no obvious mucosal lesion or ulcers identified. Overnight bleeding has actually improved there wa about 100 cc dark blood in ileostomy bag and reportedly 200 out of OG tube. Hemoglobin this morning was 6.4. Was receiving current fifth unit of blood. Significantly elevated AST and ALT in the . CTA abdomen pelvis with no gross evidence of active intraluminal hemorrhage. 04/07/2024 Patient seen and examined in the ICU. He remains intubated and sedated. His family is at the bedside. Pressors have been decreased however patient ventilatory settings were increased. He has had decreased bloody output from his ileostomy and no output from his OG tube. Nursing reports approximately 30 to 60 mL of dark blood in ostomy bag. Hemoglobin stable at 9.0 04/08/2024 Patient seen and examined in the ICU. He remains intubated and sedated. He had about 250 cc of bloody output through JASON through the night. Pressors were increased. He had a run of A-fib and cardiology was consulted. Diagnosed with pericardial effusion supposed to have a repeat echocardiogram done today. He received another unit of blood yesterday afternoon for hypotension. Today's repeat hemoglobin 11.3 platelet count 84,000 bilirubin 1.1 AST 554 ALT 1914 alk phos 71 Objective - Vital Signs Vital signs: Vital Signs Temp 97.5 F L 04/07/24 20:00 Pulse 64 04/08/24 07:15 Resp 24 04/08/24 07:15 BP 100/62 04/08/24 05:15 Pulse Ox 98 04/08/24 07:15 FiO2 85 04/08/24 06:02 Intake & Output 04/07/24 04/08/24 04/08/24 18:59 06:59 18:59 Intake Total 2692.563 2599.550 85 Output Total 215 480 10 Balance 2477.563 2119.550 75 Weight 84.1 kg Intake: IV 1570 1120 85 Dextrose 5% in Water 1, 250 000 ml @ 50 mls/hr IV . Q23H [facility] with Sodium Bicarb (1 Meq/ml) 150 ml Rx#:[id number] Piperacillin-Tazobactam 3 300 100 .375 gm In Sodium Chloride 0.9% 100 ml @ 25 mls/hr IVPB Q8H [facility] Rx#: [id number] TPN 1020 1020 85 Intake, IV Titration 144.695 8275.550 Amount Cisatracurium 200 mg In 200.000 Sodium Chloride 0.9% 180 ml @ 1 MCG/KG/MIN 4.002 mls/hr IV .Q24H [facility] Rx#: [id number] Mvi, Adult No.4 with Vit 1048 K 10 ml Trace (Conc-1Ml/ Dose) 1 ml Sodium Acetate 40 meq Magnesium Sulfate gm 1 gm Calcium Gluconate 1 gm Potassium Acetate 10 meq In Amino Acid 5%-D15w 1,000 ml @ 85 mls/hr IV .BY DURATION [facility] Rx#:[id number] Norepinephrine 4 mg In 254.000 431.550 Sodium Chloride 0.9% 250 ml @ 0.03 MCG/KG/MIN 7. 258 mls/hr IV .Q24H [facility] Rx#:[id number] Sodium Chloride 0.9% 80 75.866 ml @ 0.25 MCG/KG/HR 1.668 mls/hr IV .Q24H [facility] with fentaNYL (PF) 1,000 mcg Rx#:[id number] Vasopressin 60 unit In 82.697 Sodium Chloride 0.9% 150 ml @ 0.03 UNITS/MIN 4.59 mls/hr IV .Q24H [facility] Rx#: [id number] propofoL 1,000 mg In 200 Empty Bag 1 bag @ 15 MCG/ KG/MIN 5.715 mls/hr IV . [id number] [facility] Rx#:[id number] Blood Product 310 Rc As-1 Unit 310 [id number] Output: Gastric Drainage 50 Urine 215 430 10 Other: Voiding Method Indwelling Catheter Indwelling Catheter ABP, PAP, CO, CI - Last Documented Arterial Blood Pressure 115/46 - Exam General appearance: The patient is dated and intubated. HET: Head is normocephalic and atraumatic. Neck: Supple without lymphadenopathy. Abdomen: Soft, nondistended, right ileostomy with small amount of bloody output. Incision with dressing with marked drainage. Extremities: Normal skin color and turgor. No pedal edema. Bilateral hands and fingertips cool to the touch, mottled and purple. Bilateral feet cool to the touch with mottled toes. Skin: No rashes, no jaundice Neurological: Sedated and intubated. - Labs CBC & Chem 7: 04/08/24 06:00 04/08/24 06:00 Labs: Abnormal Lab Results - Last 24 Hours (Table) 04/04/24 04/07/24 04/07/24 Range/Units 16:35 10:37 13:11 WBC (3.8-10.6) k/uL RBC (4.30-5.90) m/uL Hgb (13.0-17.5) gm/dL Hct (39.0-53.0) % RDW (11.5-15.5) % Plt Count (150-450) k/uL APTT (22.0-30.0) sec ABG pH (7.35-7.45) ABG pCO2 (35-45) mmHg ABG pO2 (83-108) mmHg ABG O2 Saturation (94-97) % Hemoglobin (13.0-17.5) gm/dL Sodium (137-145) mmol/L Potassium (3.5-5.1) mmol/L BUN (9-20) mg/dL Creatinine (0.66-1.25) mg/dL Glucose (74-99) mg/dL POC Glucose (mg/dL) 256 H 186 H (70-110) mg/dL Calcium (8.4-10.2) mg/dL Phosphorus (2.5-4.5) mg/dL Magnesium (1.6-2.3) mg/dL AST (17-59) U/L ALT (4-49) U/L Total Protein (6.3-8.2) g/dL Albumin (3.5-5.0) g/dL Crossmatch See Detail 04/07/24 04/07/24 04/07/24 Range/Units 13:15 20:19 20:22 WBC (3.8-10.6) k/uL RBC (4.30-5.90) m/uL Hgb (13.0-17.5) gm/dL Hct (39.0-53.0) % RDW (11.5-15.5) % Plt Count (150-450) k/uL APTT 32.1 H (22.0-30.0) sec ABG pH (7.35-7.45) ABG pCO2 (35-45) mmHg ABG pO2 (83-108) mmHg ABG O2 Saturation (94-97) % Hemoglobin (13.0-17.5) gm/dL Sodium (137-145) mmol/L Potassium (3.5-5.1) mmol/L BUN (9-20) mg/dL Creatinine (0.66-1.25) mg/dL Glucose (74-99) mg/dL POC Glucose (mg/dL) 199 H 226 H (70-110) mg/dL Calcium (8.4-10.2) mg/dL Phosphorus (2.5-4.5) mg/dL Magnesium (1.6-2.3) mg/dL AST (17-59) U/L ALT (4-49) U/L Total Protein (6.3-8.2) g/dL Albumin (3.5-5.0) g/dL Crossmatch 04/07/24 04/07/24 04/08/24 Range/Units 23:04 23:04 00:41 WBC 18.6 H (3.8-10.6) k/uL RBC 3.49 L (4.30-5.90) m/uL Hgb 10.9 L (13.0-17.5) gm/dL Hct 33.0 L (39.0-53.0) % RDW 16.1 H (11.5-15.5) % Plt Count 68 L (150-450) k/uL APTT (22.0-30.0) sec ABG pH (7.35-7.45) ABG pCO2 (35-45) mmHg ABG pO2 (83-108) mmHg ABG O2 Saturation (94-97) % Hemoglobin (13.0-17.5) gm/dL Sodium 133 L (137-145) mmol/L Potassium (3.5-5.1) mmol/L BUN 85 H (9-20) mg/dL Creatinine 2.87 H (0.66-1.25) mg/dL Glucose 194 H (74-99) mg/dL POC Glucose (mg/dL) 206 H (70-110) mg/dL Calcium 7.8 L (8.4-10.2) mg/dL Phosphorus (2.5-4.5) mg/dL Magnesium (1.6-2.3) mg/dL AST (17-59) U/L ALT (4-49) U/L Total Protein (6.3-8.2) g/dL Albumin (3.5-5.0) g/dL Crossmatch 04/08/24 04/08/24 04/08/24 Range/Units 05:55 06:00 06:00 WBC 23.1 H (3.8-10.6) k/uL RBC 3.73 L (4.30-5.90) m/uL Hgb 11.3 L (13.0-17.5) gm/dL Hct 36.3 L (39.0-53.0) % RDW (11.5-15.5) % Plt Count 84 L (150-450) k/uL APTT (22.0-30.0) sec ABG pH 7.05 L* (7.35-7.45) ABG pCO2 >98 H* (35-45) mmHg ABG pO2 202 H (83-108) mmHg ABG O2 Saturation 99.4 H (94-97) % Hemoglobin 11.5 L (13.0-17.5) gm/dL Sodium 134 L (137-145) mmol/L Potassium 5.2 H (3.5-5.1) mmol/L BUN 90 H (9-20) mg/dL Creatinine 3.13 H (0.66-1.25) mg/dL Glucose (74-99) mg/dL POC Glucose (mg/dL) (70-110) mg/dL Calcium 7.9 L (8.4-10.2) mg/dL Phosphorus 7.3 H (2.5-4.5) mg/dL Magnesium 2.5 H (1.6-2.3) mg/dL AST 554 H (17-59) U/L ALT 1914 H (4-49) U/L Total Protein 4.0 L (6.3-8.2) g/dL Albumin 2.1 L (3.5-5.0) g/dL Crossmatch Microbiology - Last 24 Hours (Table) 04/05/24 08:26 Blood Culture - Preliminary Blood 04/05/24 03:59 Gram Stain - Final Sputum Sputum Culture - Final Pseudomonas aeruginosa Assessment and Plan (1) GI bleed Narrative/Plan: 73-year-old patient who presents with acute lower GI bleed. She started having maroon-colored stools with large clots since this morning came to the emergency room this afternoon and since then he had at least 3-4 large bloody bowel movements. Remains hypotensive. Was resuscitated with IV fluids and 2 mL of PRBC transfusion and repeat CBC still pending. Initial hemoglobin at the time of admission the hospital was 12.1 g/dL and repeat 1 prior to blood transfusion was 9.1 g/dL. Since being in the ICU he continues to remain hemodynamically un stable and passing large bloody bowel movements. On review of his records he did have a colonoscopy in November of this year that revealed 2 small polyps in the cecum and transverse colon that were removed. CT angiogram did reveal active extravasation of the contrast in the right colon and transverse colon consistent with active colonic bleed. Was seen by general surgery and taken for exploratory laparotomy and subtotal colectomy with end ileostomy. Continue to monitor blood loss. Upper endoscopy completed. CTA abdomen pelvis with no active intraluminal hemorrhage. Vascular surgery following who has reviewed and does not believe there is any aortoenteric fistula Continue with the supportive measures. Hemoglobin stabilized. Patient status post 7 units of blood and a unit of FFP. Current Visit: Yes Status: Acute Priority: High Code(s): K92.2 - GASTROINTESTINAL HEMORRHAGE, UNSPECIFIED SNOMED Code(s): 85805451 (2) AAA (abdominal aortic aneurysm) Narrative/Plan: Status post graft several years ago. No evidence of aortoenteric fistula per vascular surgery Current Visit: Yes Status: Acute Priority: High Code(s): I71.4 - ABDOMINAL AORTIC ANEURYSM, WITHOUT RUPTURE * DO NOT USE * SNOMED Code(s): 185806947 (3) Acute kidney injury Current Visit: Yes Status: Acute Priority: High Code(s): N17.9 - ACUTE KIDNEY FAILURE, UNSPECIFIED SNOMED Code(s): 57651459 (4) COPD exacerbation Current Visit: No Status: Acute Code(s): J44.1 - CHRONIC OBSTRUCTIVE PULMONARY DISEASE W (ACUTE) EXACERBATION SNOMED Code(s): 688965868 (5) Atrial fibrillation Current Visit: Yes Status: Acute Code(s): I48.91 - UNSPECIFIED ATRIAL FIBRILLATION SNOMED Code(s): 75290864 (6) Pericardial effusion Current Visit: Yes Status: Acute Code(s): I31.39 - OTHER PERICARDIAL EFFUSION (NONINFLAMMATORY) SNOMED Code(s): 015608619 (7) Elevated LFTs Narrative/Plan: Significantly elevated LFTs in the , acute ischemic hepatitis secondary to hypoperfusion/shock liver. No further workup indicated at this time continue to monitor LFTs. LFTs continue to improve and trend down Current Visit: Yes Status: Acute Priority: High Code(s): R79.89 - OTHER SPECIFIED ABNORMAL FINDINGS OF BLOOD CHEMISTRY SNOMED Code(s): 336710566 Plan: 1. Continue symptomatic and supportive care 2. Continue supportive care in the ICU 3. Protonix 40 mg IV for GI prophylaxis 4. Continue to monitor blood loss 6. Status post upper endoscopy 7. Vascular surgery on consultation, no reported evidence of aortoenteric fistula 8. Continue with general surgery recommendations Thank you for allowing us to participate in the care of the patient, the GI service will sign off, gastroenterology will not be available at the hospital this weekend and through next week. If further evaluation by gastroenterology is required the patient will need transfer as per the primary team's discretion. Dr. Dipesh Rojas I agree with the dictator's note, documented as a scribe by Yamileth Vásquez.
[2024-04-08 08:31] LABS: ABG Base Excess -3.8 mmol/L; ABG HCO3 27 mmol/L (21-25); ABG Oxygen Saturation 93.7 % (94-97); ABG PO2 74 mmHg (83-108); ABG TCO2 30 mmol/L (19-24)
[2024-04-08 08:34] LABS: ABG PCO2 88 mmHg (35-45)
[2024-04-08] MEDS: SODIUM BICARB 8.4% 50 ML SYR (1 MEQ/ML) IV STA ×2 (09:01→09:02)
--- NOTE | 2024-04-08 09:37 | P.PN ---
Subjective Progress Note Date: 04/08/24 73 year old M with PMH of COPD, CAD, PVD, L iliac stent presented to the ED after a syncopal episode at home after an episode of diarrhea. In the ED he underwent extensive evaluation. BP 83/60, HR 86, T 97.4F, RR 18, 80% on RA?. CBC, Coag panel, CMP significant for RBC 3.62, Hg 12.1, Hct 35.5, Na 130, K 5.7, BUN 24, glu 145, alb 3.4. Mag 1.5. Troponin < 0.012. UA negative. CXR chronic changes. CT head and C-spine no acute process. EKG sinus rhythm with first degree AV block. Initially plans for discharge home however patient had a large maroon colored bowel movement and a Hg drop to 9.4 while in the ED. 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 ER provider discussed the case with GI and arrangements were made for admission to ICU for C-scope tomorrow. Transfused 4 units PRBC. GI evaluated the patient and recommended surgery consult. 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 Post operatively he had significant output from his ileostomy and hypotension requiring Levophed, Vasopressin and multiple NS boluses. Underwent EGD which showed old blood in the stomach and duodenum, gastritis and duodenitis, fresh blood in the third portion of the duodenum with no mucosal lesions. Case discussed with Dr. Rojas recommending CTA Abd to rule out aortoenteric fistula. 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 Vascular Sx consulted noted no signs of aortoenteric fistula. Heme- Onc consulted for coagulopathy, likely due to shock liver, FFP and tagged RBC study ordered. Echo showed EF 55-60% with moderate pericardial effusion, Cardiology consulted, recommending no tamponade and repeat Echo for 04/08. 04/07 Patient was seen and examined. Intubated sedated with Propofol at 50 mcg/kg/min + Nimbex at 1.5 mcg/kg/min +Fentanyl at 0.25 mcg/kg/hr. POD 3 subt otal colectomy with end ileostomy. Currently on Levophed at 0.16 mcg/kg/min and Vasopressin at 0.03 units/min. Antibiotics include Zosyn 3.375g IV TID. Nutrition via TPN. He was transfused [address] Tamez recommendations. CBC and CMP significant for WBC 23.1, RBC 3.73, Hg 11.3, Hct 3 6.3, Plt 84, Na 134, K 5.2, BUN 90, Cr 3.13, Ca 7.9, alb 2.1, AST 554, ALT 1914. Phos 7.3. Mag 2.5. ABG pH 7.05, pCO2 >98, pO2 202 FiO2 100. CXR done today shows LLL opacity. General: Intubated Derm: Warm, dry Head: Atraumatic, normocephalic, symmetric Eyes: no lid lag, anicteric sclera Mouth: No lip lesion, mucus membranes moist Cardiovascular: S1 S2 reg. No murmurs, rubs, gallops Lungs: Coarse breath sounds bilaterally, no accessory muscle use Abdominal: Soft, non distended, surgical scar intact dressing c/d/i, ileostomy without much output Ext: No gross muscle atrophy, no edema, no contractures, ischemic changes in bilateral fingers and toes Psych: Intubated Based on my assessment of this patient, this patient meets a high complexity level of care. Lower GI bleed status post exploratory laparotomy and subtotal colectomy with end ileostomy on 04/05: As seen on CT AP. Protonix 40 mg IV BID. Telemetry monitoring. TPN for nutrition. Admit to ICU. Surgery and GI on board. Hypovolemic versus septic shock: Maintain Levophed and Vasopressin titrate to MAP > 65. Zosyn 3.375g IV TID (D4). Sputum Cx growing Pseudomonas. BCx negative at 48H. Coagulopathy: Plt 84. INR 1.1. APTT 32.1. Fibrinogen 373. D-Dimer 19.58. LDH 1097. Concerns for comsumptive coagulopathy. Status post 7 units PRBC and 1 FFP. Hematology recommendations appreciated, likely related to shock liver. Hematology on board. Pericardial effusion: As seen on Echo. No tamponade. Repeat Echo today. Cardiology consulted. Acute kidney injury: Hypovolemic. CT with no obstruction. Pressors and IV hydration as above. Nephrology consulted. Shock Liver: Improving. Monitor LFTs. Pressors and IV hydration as above. Lactic acidosis likely due to above. Acute hypoxic respiratory failure COPD exacerbation: DuoNeb QID scheduled and PRN for SOB/wheezing. Solumedrol 40 mg IV TID. Pulmicort 1 mg INH BID. Performist 20 mcg INH BID. Pulmonary on board. Hyperglycemia: From acute stressor and steroid induced. A1c 5.6. Novolog 8 units TID. ISS Q6H. Accuchecks Q6H. Hyponatremia: Hypovolemic. Improved. IV hydration as above. CAD, PVD, L iliac stent: Hold ASA Resolved: HyperK, HypoMag Patient is poor prognosis. Will attempt to discuss with family regarding comfort measures. CODE STATUS: FULL CODE DVT Prophylaxis: SCD GI Prophylaxis: Protonix IV Designated medical POA if patient is not able to make medical decisions for themselves: I have reviewed the following information security consultant notes: Surgery, Pulmonary, Cardiology, Hematology, GI note. I have reviewed the results of the following tests: CBC, CMP, Phos, Mag, ABG I have ordered the following tests: ABG I have discussed the care of this patient with the following independent h istorian: RN, repeat ABG ordered. I have independently interpreted the following test below: CXR. I have discussed the management of this patient with the following physician: Dr. Pollock Objective - Vital Signs Vital signs: Vital Signs Temp 97.5 F L 04/07/24 20:00 Pulse 64 04/08/24 07:15 Resp 24 04/08/24 07:15 BP 100/62 04/08/24 05:15 Pulse Ox 98 04/08/24 07:15 FiO2 85 04/08/24 06:02 Intake & Output 04/07/24 04/08/24 04/08/24 18:59 06:59 18:59 Intake Total 2692.563 2599.550 85 Output Total 215 480 10 Balance 2477.563 2119.550 75 Weight 84.1 kg Intake: IV 1570 1120 85 Dextrose 5% in Water 1, 250 000 ml @ 50 mls/hr IV . Q23H [facility] with Sodium Bicarb (1 Meq/ml) 150 ml Rx#:[id number] Piperacillin-Tazobactam 3 300 100 .375 gm In Sodium Chloride 0.9% 100 ml @ 25 mls/hr IVPB Q8H [facility] Rx#: [id number] TPN 1020 1020 85 Intake, IV Titration 249.637 7768.550 Amount Cisatracurium 200 mg In 200.000 Sodium Chloride 0.9% 180 ml @ 1 MCG/KG/MIN 4.002 mls/hr IV .Q24H [facility] Rx#: [id number] Mvi, Adult No.4 with Vit 1048 K 10 ml Trace (Conc-1Ml/ Dose) 1 ml Sodium Acetate 40 meq Magnesium Sulfate gm 1 gm Calcium Gluconate 1 gm Potassium Acetate 10 meq In Amino Acid 5%-D15w 1,000 ml @ 85 mls/hr IV .BY DURATION [facility] Rx#:[id number] Norepinephrine 4 mg In 254.000 431.550 Sodium Chloride 0.9% 250 ml @ 0.03 MCG/KG/MIN 7. 258 mls/hr IV .Q24H [facility] Rx#:[id number] Sodium Chloride 0.9% 80 75.866 ml @ 0.25 MCG/KG/HR 1.668 mls/hr IV .Q24H [facility] with fentaNYL (PF) 1,000 mcg Rx#:[id number] Vasopressin 60 unit In 82.697 Sodium Chloride 0.9% 150 ml @ 0.03 UNITS/MIN 4.59 mls/hr IV .Q24H [facility] Rx#: [id number] propofoL 1,000 mg In 200 Empty Bag 1 bag @ 15 MCG/ KG/MIN 5.715 mls/hr IV . [id number] [facility] Rx#:[id number] Blood Product 310 Rc As-1 Unit 310 [id number] Output: Gastric Drainage 50 Urine 215 430 10 Other: Voiding Method Indwelling Catheter Indwelling Catheter ABP, PAP, CO, CI - Last Documented Arterial Blood Pressure 115/46 - Labs CBC & Chem 7: 04/08/24 06:00 04/08/24 06:00 Labs: Abnormal Lab Results - Last 24 Hours (Table) 04/04/24 04/07/24 04/07/24 Range/Units 16:35 06:20 10:37 WBC (3.8-10.6) k/uL RBC (4.30-5.90) m/uL Hgb (13.0-17.5) gm/dL Hct (39.0-53.0) % RDW (11.5-15.5) % Plt Count (150-450) k/uL Neutrophils # (Manual) 9.80 H (1.3-7.7) k/uL Metamyelocytes # (Man) 0.48 H (0) k/uL Myelocytes # (Manual) 0.12 H (0) k/uL APTT (22.0-30.0) sec ABG pH (7.35-7.45) ABG pCO2 (35-45) mmHg ABG pO2 (83-108) mmHg ABG O2 Saturation (94-97) % Hemoglobin (13.0-17.5) gm/dL Sodium (137-145) mmol/L Potassium (3.5-5.1) mmol/L BUN (9-20) mg/dL Creatinine (0.66-1.25) mg/dL Glucose (74-99) mg/dL POC Glucose (mg/dL) 256 H (70-110) mg/dL Calcium (8.4-10.2) mg/dL Phosphorus (2.5-4.5) mg/dL Magnesium (1.6-2.3) mg/dL AST (17-59) U/L ALT (4-49) U/L Total Protein (6.3-8.2) g/dL Albumin (3.5-5.0) g/dL Crossmatch See Detail 04/07/24 04/07/24 04/07/24 Range/Units 13:11 13:15 20:19 WBC (3.8-10.6) k/uL RBC (4.30-5.90) m/uL Hgb (13.0-17.5) gm/dL Hct (39.0-53.0) % RDW (11.5-15.5) % Plt Count (150-450) k/uL Neutrophils # (Manual) (1.3-7.7) k/uL Metamyelocytes # (Man) (0) k/uL Myelocytes # (Manual) (0) k/uL APTT 32.1 H (22.0-30.0) sec ABG pH (7.35-7.45) ABG pCO2 (35-45) mmHg ABG pO2 (83-108) mmHg ABG O2 Saturation (94-97) % Hemoglobin (13.0-17.5) gm/dL Sodium (137-145) mmol/L Potassium (3.5-5.1) mmol/L BUN (9-20) mg/dL Creatinine (0.66-1.25) mg/dL Glucose (74-99) mg/dL POC Glucose (mg/dL) 186 H 199 H (70-110) mg/dL Calcium (8.4-10.2) mg/dL Phosphorus (2.5-4.5) mg/dL Magnesium (1.6-2.3) mg/dL AST (17-59) U/L ALT (4-49) U/L Total Protein (6.3-8.2) g/dL Albumin (3.5-5.0) g/dL Crossmatch 04/07/24 04/07/24 04/07/24 Range/Units 20:22 23:04 23:04 WBC 18.6 H (3.8-10.6) k/uL RBC 3.49 L (4.30-5.90) m/uL Hgb 10.9 L (13.0-17.5) gm/dL Hct 33.0 L (39.0-53.0) % RDW 16.1 H (11.5-15.5) % Plt Count 68 L (150-450) k/uL Neutrophils # (Manual) (1.3-7.7) k/uL Metamyelocytes # (Man) (0) k/uL Myelocytes # (Manual) (0) k/uL APTT (22.0-30.0) sec ABG pH (7.35-7.45) ABG pCO2 (35-45) mmHg ABG pO2 (83-108) mmHg ABG O2 Saturation (94-97) % Hemoglobin (13.0-17.5) gm/dL Sodium 133 L (137-145) mmol/L Potassium (3.5-5.1) mmol/L BUN 85 H (9-20) mg/dL Creatinine 2.87 H (0.66-1.25) mg/dL Glucose 194 H (74-99) mg/dL POC Glucose (mg/dL) 226 H (70-110) mg/dL Calcium 7.8 L (8.4-10.2) mg/dL Phosphorus (2.5-4.5) mg/dL Magnesium (1.6-2.3) mg/dL AST (17-59) U/L ALT (4-49) U/L Total Protein (6.3-8.2) g/dL Albumin (3.5-5.0) g/dL Crossmatch 04/08/24 04/08/24 04/08/24 Range/Units 00:41 05:55 06:00 WBC (3.8-10.6) k/uL RBC (4.30-5.90) m/uL Hgb (13.0-17.5) gm/dL Hct (39.0-53.0) % RDW (11.5-15.5) % Plt Count (150-450) k/uL Neutrophils # (Manual) (1.3-7.7) k/uL Metamyelocytes # (Man) (0) k/uL Myelocytes # (Manual) (0) k/uL APTT (22.0-30.0) sec ABG pH 7.05 L* (7.35-7.45) ABG pCO2 >98 H* (35-45) mmHg ABG pO2 202 H (83-108) mmHg ABG O2 Saturation 99.4 H (94-97) % Hemoglobin 11.5 L (13.0-17.5) gm/dL Sodium 134 L (137-145) mmol/L Potassium 5.2 H (3.5-5.1) mmol/L BUN 90 H (9-20) mg/dL Creatinine 3.13 H (0.66-1.25) mg/dL Glucose (74-99) mg/dL POC Glucose (mg/dL) 206 H (70-110) mg/dL Calcium 7.9 L (8.4-10.2) mg/dL Phosphorus 7.3 H (2.5-4.5) mg/dL Magnesium 2.5 H (1.6-2.3) mg/dL AST 554 H (17-59) U/L ALT 1914 H (4-49) U/L Total Protein 4.0 L (6.3-8.2) g/dL Albumin 2.1 L (3.5-5.0) g/dL Crossmatch 04/08/24 Range/Units 06:00 WBC 23.1 H (3.8-10.6) k/uL RBC 3.73 L (4.30-5.90) m/uL Hgb 11.3 L (13.0-17.5) gm/dL Hct 36.3 L (39.0-53.0) % RDW (11.5-15.5) % Plt Count 84 L (150-450) k/uL Neutrophils # (Manual) (1.3-7.7) k/uL Metamyelocytes # (Man) (0) k/uL Myelocytes # (Manual) (0) k/uL APTT (22.0-30.0) sec ABG pH (7.35-7.45) ABG pCO2 (35-45) mmHg ABG pO2 (83-108) mmHg ABG O2 Saturation (94-97) % Hemoglobin (13.0-17.5) gm/dL Sodium (137-145) mmol/L Potassium (3.5-5.1) mmol/L BUN (9-20) mg/dL Creatinine (0.66-1.25) mg/dL Glucose (74-99) mg/dL POC Glucose (mg/dL) (70-110) mg/dL Calcium (8.4-10.2) mg/dL Phosphorus (2.5-4.5) mg/dL Magnesium (1.6-2.3) mg/dL AST (17-59) U/L ALT (4-49) U/L Total Protein (6.3-8.2) g/dL Albumin (3.5-5.0) g/dL Crossmatch Microbiology - Last 24 Hours (Table) 04/05/24 08:26 Blood Culture - Preliminary Blood 04/05/24 03:59 Gram Stain - Final Sputum Sputum Culture - Final Pseudomonas aeruginosa
--- NOTE | 2024-04-08 10:18 | CA ---
Transthoracic Echo Report Name: David Vasques Age: 73 Gender: M : 1950 Exam Date: 04/08/2024 08:00 Exam Location: [facility] Ht (in): 68 Wt (lb): 185 Ordering Physician: Elias Urrutia MD ([id number]) Attending/Referring Phys: Services Tech Celina Gonsales RDCS Procedure CPT: Indications: eval pericardial effusion Cardiac Hx: Technical Quality: Fair Contrast 1: Total Dose (mL): Contrast 2: Total Dose (mL): MEASUREMENTS (Male / Female) Normal Values 2D ECHO LV Diastolic Diameter PLAX 4.1 cm 4.2 - 5.9 / 3.9 - 5.3 cm LV Systolic Diameter PLAX 2.6 cm IVS Diastolic Thickness 1.3 cm 0.6 - 1.0 / 0.6 - 0.9 cm LVPW Diastolic Thickness 1.3 cm 0.6 - 1.0 / 0.6 - 0.9 cm LV Relative Wall Thickness 0.6 FINDINGS Left Ventricle Left ventricular ejection fraction is estimated at 60-65 %. Mildly increased septal wall thickness. No obvious regional wall motion abnormalities. Right Ventricle Right Atrium Left Atrium Mitral Valve Aortic Valve Tricuspid Valve Pulmonic Valve Pericardium Small anterior pericardial effusion. Aorta CONCLUSIONS Normal LV systolic function Small pericardial effusion Previewed by: Dr. Jp Rojas MD (Electronically Signed) Final Date: 08 April 2024 10:17
--- NOTE | 2024-04-08 10:35 | P.NPCON ---
History of Present Illness - Reason for Consult acute renal failure - History of Present Illness Reason for consultation: Acute kidney injury History of present illness: Patient is a 73-year-old male seen in renal consultation for acute kidney injury. Creatinine was 0.69 on admission dated April 04, 2024 and is up to 3.13 today. Patient came to the hospital on April 04, 2024 due to syncopal episode. Patient felt dizzy and lightheaded and also had diaphoretic episodes. Patient was noted to have an acute GI bleed and received blood transfusions. He also underwent exploratory laparotomy with subtotal colectomy with end ileostomy on April 04, 2024. Patient is currently intubated. He is on Levophed and vasopressin. He did receive a dose of 80 mg IV Lasix yesterday with no improvement in urine output. Urine output has been about 10 cc an hour. He was also on amiodarone drip for A-fib but is now discontinued. He also received IV contrast dye on April 06, 2024 for an abdomen CTA. Echocardiogram from April 06, 2024 showed moderate pericardial effusion with mild to moderate aortic regurgitation. UA is noted to be benign. Vital signs are stable. On vasopressor support. General: Resting in bed. HEENT: Intubated. LUNGS: Scattered rhonchi. HEART: Rate and Rhythm are regular. ABDOMEN: Ileostomy with dark fluid in the bag noted. EXTREMITITES: No edema. Past Medical History Past Medical History: COPD, GERD/Reflux, Myocardial Infarction ([place]), Pneumonia, Vascular Disorder Additional Past Medical History / Comment(s): Bronchitis, past respiratory failure, PVD, pt states [place] per EKG, beginnings of bilateral cataracts. Mass on lung, agent orange from [place]. Last Myocardial Infarction Date:: 2009 per EKG History of Any Multi-Drug Resistant Organisms: None Reported Past Surgical History: Appendectomy Additional Past Surgical History / Comment(s): Endovascular aortic repair, L iliac stent, colonoscopy Past Anesthesia/Blood Transfusion Reactions: No Reported Reaction Additional Past Anesthesia/Blood Transfusion Reaction / Comment(s): no blood tra nsfusion Past Psychological History: Anxiety, Depression Smoking Status: Current every day smoker Past Alcohol Use History: None Reported Past Drug Use History: None Reported - Past Family History Mother Family Medical History: Liver Disease Additional Family Medical History / Comment(s): liver cirrhosis Brother(s) Family Medical History: Vascular Disorder Father Family Medical History: Myocardial Infarction ([place]) Medications and Allergies Home Medications Medication Instructions Recorded Confirmed Type Aspirin EC [Ecotrin Low Dose] 81 mg PO DAILY 12/11/19 04/04/24 History Albuterol Inhaler [Ventolin Hfa 2 puff INHALATION RT-Q6H PRN 04/04/24 04/04/24 History Inhaler] Atorvastatin [Lipitor] 40 mg PO HS 04/04/24 04/04/24 History Formoterol Fumarate [Perforomist] 20 mcg INHALATION RT-BID 04/04/24 04/04/24 History Ipratropium Nebulized [Atrovent 0.5 mg INHALATION RT-QID PRN 04/04/24 04/04/24 History Nebulized 0.2 MG/ML] Ketoconazole 2% Cream [Nizoral 2%] 1 applic TOPICAL DAILY PRN 04/04/24 04/04/24 History Mometasone/Formoterol [Dulera 200 2 puff INHALATION RT-BID 04/04/24 04/04/24 History Mcg-5 Mcg Inhaler] Omeprazole [PriLOSEC] 20 mg PO DAILY 04/04/24 04/04/24 History Tiotropium 2.5 Mcg/Puff [Spiriva 2 puff INHALATION RT-DAILY 04/04/24 04/04/24 History Respimat 2.5 Mcg] lisinopriL [Zestril] 10 mg PO DAILY 04/04/24 04/04/24 History predniSONE 5 mg PO DAILY 04/04/24 04/04/24 History traMADol HCL 100 mg PO Q8H PRN 04/04/24 04/04/24 History Allergies Allergy/AdvReac Type Severity Reaction Status Date / Time bee venom protein (honey bee) Allergy Unknown Verified 04/04/24 16:10 tape AdvReac Rash/Hives Uncoded 04/04/24 16:10 Physical Exam Vitals: Vital Signs Temp Pulse Resp BP Pulse Ox FiO2 04/08/24 09:40 60 04/08/24 08:33 65 04/08/24 08:25 60 04/08/24 08:15 65 04/08/24 08:14 85 04/08/24 07:15 64 24 98 04/08/24 07:00 64 24 98 04/08/24 06:45 64 24 99 04/08/24 06:30 64 24 100 04/08/24 06:15 64 24 100 04/08/24 06:02 85 04/08/24 06:00 65 24 100 04/08/24 05:45 66 24 100 04/08/24 05:30 68 24 100 04/08/24 05:15 69 24 100/62 100 04/08/24 05:00 70 24 100/62 100 04/08/24 04:45 72 24 100/62 100 04/08/24 04:30 74 24 100/62 100 04/08/24 04:15 76 24 100/62 100 04/08/24 04:00 79 24 100/62 100 85 04/08/24 03:45 80 24 110/75 100 04/08/24 03:37 100 04/08/24 03:30 82 24 117/57 100 04/08/24 03:15 85 24 108/59 100 04/08/24 03:00 85 24 110/59 100 04/08/24 02:45 86 24 110/62 100 04/08/24 02:30 86 24 108/60 100 04/08/24 02:15 87 24 110/62 100 04/08/24 02:00 88 24 111/63 100 04/08/24 01:45 89 24 109/65 100 04/08/24 01:30 89 24 106/61 100 04/08/24 01:15 87 24 100/77 100 04/08/24 01:00 113 H 24 94/67 99 04/08/24 00:45 124 H 24 98/71 100 04/08/24 00:30 112 H 24 106/69 99 04/08/24 00:15 128 H 24 100/76 98 04/08/24 00:00 117 H 24 96/66 97 100 04/07/24 23:45 118 H 24 106/64 96 04/07/24 23:30 126 H 24 117/67 93 L 04/07/24 23:25 100 04/07/24 23:15 117 H 24 112/77 90 L 04/07/24 23:00 129 H 0 L 106/61 91 L 04/07/24 22:45 89 24 106/57 92 L 04/07/24 22:30 89 24 110/61 95 04/07/24 22:15 89 24 107/63 95 04/07/24 22:00 89 24 115/64 97 04/07/24 21:45 89 24 113/65 97 04/07/24 21:38 89 24 113/65 96 04/07/24 21:30 89 22 114/63 96 04/07/24 21:15 89 22 102/61 96 04/07/24 21:00 89 22 107/64 98 04/07/24 20:45 88 22 107/62 96 04/07/24 20:30 88 22 111/61 96 04/07/24 20:21 88 04/07/24 20:18 88 04/07/24 20:17 88 04/07/24 20:15 88 22 107/61 95 04/07/24 20:07 85 04/07/24 20:04 87 04/07/24 20:00 97.5 F L 87 22 105/56 96 85 04/07/24 19:45 87 22 106/63 96 04/07/24 19:30 87 22 105/63 96 04/07/24 19:15 88 22 113/59 94 L 04/07/24 19:00 88 24 110/64 94 L 04/07/24 18:45 89 24 113/62 96 04/07/24 18:30 89 24 113/63 96 04/07/24 18:15 90 24 123/66 95 04/07/24 18:00 90 24 107/65 96 04/07/24 17:45 88 24 115/56 96 04/07/24 17:30 89 24 110/69 97 04/07/24 17:15 89 24 110/62 96 04/07/24 17:00 89 24 110/62 96 04/07/24 16:45 89 24 101/65 94 L 04/07/24 16:44 97.5 F L 90 24 117/54 94 L 04/07/24 16:30 90 24 106/63 96 04/07/24 16:15 89 24 104/62 94 L 85 04/07/24 16:00 97.5 F L 87 24 106/59 91 L 85 04/07/24 15:47 88 04/07/24 15:45 87 24 108/52 92 L 04/07/24 15:36 88 04/07/24 15:30 89 24 101/60 89 L 70 04/07/24 15:15 89 24 102/56 91 L 04/07/24 15:00 89 24 105/56 97 04/07/24 14:45 90 24 106/56 98 04/07/24 14:30 92 24 102/63 98 04/07/24 14:15 93 24 102/54 96 04/07/24 14:00 96 24 97/58 92 L 04/07/24 13:58 97.9 F 96 24 95/49 92 L 04/07/24 13:48 97.9 F 104 H 24 90/49 92 L 04/07/24 13:45 98 24 94/54 95 04/07/24 13:30 98 24 83/55 95 04/07/24 13:15 99 24 93/55 96 04/07/24 13:00 99 24 95/63 98 04/07/24 12:45 99 24 94/62 100 04/07/24 12:30 97 24 100/58 100 04/07/24 12:22 90 04/07/24 12:15 99 24 103/58 100 04/07/24 12:05 98 04/07/24 12:00 97.9 F 99 24 100 100 04/07/24 11:59 100 04/07/24 11:45 100 24 93/62 100 04/07/24 11:30 100 24 95/53 100 04/07/24 11:15 101 H 24 85/60 100 04/07/24 11:00 101 H 22 91/53 100 04/07/24 10:45 101 H 24 92/61 100 04/07/24 10:30 103 H 24 97/64 100 Intake and Output 04/07/24 04/08/24 04/08/24 22:59 06:59 14:59 Intake Total 0686.920 9378.159 531.967 Output Total 105 405 50 Balance 9664.232 2193.159 481.967 Intake: IV 780 780 255 Piperacillin-Tazobactam 3 100 100 .375 gm In Sodium Chloride 0.9% 100 ml @ 25 mls/hr IVPB Q8H [facility] Rx#: [id number] TPN 680 680 255 Intake, IV Titration 369.965 7042.159 276.967 Amount Cisatracurium 200 mg In 124.462 Sodium Chloride 0.9% 180 ml @ 1 MCG/KG/MIN 4.002 mls/hr IV .Q24H [facility] Rx#: [id number] Mvi, Adult No.4 with Vit 1048 K 10 ml Trace (Conc-1Ml/ Dose) 1 ml Sodium Acetate 40 meq Magnesium Sulfate gm 1 gm Calcium Gluconate 1 gm Potassium Acetate 10 meq In Amino Acid 5%-D15w 1,000 ml @ 85 mls/hr IV .BY DURATION [facility] Rx#:[id number] Norepinephrine 4 mg In 297.469 179.159 152.505 Sodium Chloride 0.9% 250 ml @ 0.03 MCG/KG/MIN 7. 258 mls/hr IV .Q24H [facility] Rx#:[id number] Sodium Chloride 0.9% 80 75.866 ml @ 0.25 MCG/KG/HR 1.668 mls/hr IV .Q24H [facility] with fentaNYL (PF) 1,000 mcg Rx#:[id number] propofoL 1,000 mg In 200 Empty Bag 1 bag @ 15 MCG/ KG/MIN 5.715 mls/hr IV . [id number] [facility] Rx#:[id number] Blood Product 310 Rc As-1 Unit 310 [id number] Output: Gastric Drainage 50 Urine 105 355 50 Other: Voiding Method Indwelling Catheter Indwelling Catheter Weight 84.1 kg ABP, PAP, CO, CI - Last 8 Hours Arterial Blood Pressure 115/46 Arterial Blood Pressure 113/46 Arterial Blood Pressure 113/46 Arterial Blood Pressure 101/46 Arterial Blood Pressure 107/49 Arterial Blood Pressure 86/45 Arterial Blood Pressure 100/48 Arterial Blood Pressure 104/49 Arterial Blood Pressure 100/48 Arterial Blood Pressure 100/49 Arterial Blood Pressure 101/49 Arterial Blood Pressure 104/49 Arterial Blood Pressure 106/50 Arterial Blood Pressure 102/50 Arterial Blood Pressure 101/57 Arterial Blood Pressure 101/52 Arterial Blood Pressure 113/54 Arterial Blood Pressure 103/53 Arterial Blood Pressure 106/53 Arterial Blood Pressure 106/52 Results - Lab Results Most recent lab results ABG pH 7.10 (7.35-7.45) L* 04/08/24 08:26 ABG pCO2 88 mmHg (35-45) H* 04/08/24 08:26 ABG pO2 74 mmHg (83-108) L 04/08/24 08:26 ABG HCO3 27 mmol/L (21-25) H 04/08/24 08:26 ABG O2 Saturation 93.7 % (94-97) L 04/08/24 08:26 Calcium 7.9 mg/dL (8.4-10.2) L 04/08/24 06:00 Phosphorus 7.3 mg/dL (2.5-4.5) H 04/08/24 06:00 Magnesium 2.5 mg/dL (1.6-2.3) H 04/08/24 06:00 04/08/24 06:00 04/08/24 06:00 Assessment and Plan Plan: Assessment: 1. Acute kidney injury secondary to ATN secondary to shock. Also received IV contrast on April 06, 2024. Baseline creatinine 0.7 and is up to 3.13 today. Oliguric. Status post IV Lasix April 07, 2024 with no response in urine output. UA benign. No hydronephrosis noted on abdomen CTA. 2. Pericardial effusion. Repeat echocardiogram from this morning showed mild pericardial effusion. EF preserved. 3. Shock maintained on Levophed and vasopressin. 4. Acute blood loss anemia status post blood transfusions. Status post exploratory laparotomy with subtotal colectomy with end ileostomy. Surgery following. 5. Acute hypercapnic and hypoxic respiratory failure. Intubated. 6. A-fib with RVR s/p amiodarone drip. Plan: Currently receiving TPN. Remove potassium from TPN. Wean FiO2 and vasopressors. Repeat BMP this afternoon. Prognosis guarded. Patient is DNR. Case discussed with capacity analyst who is going to have a family meeting again today. Comfort measures being considered. Continue to assess daily for need for renal placement therapy. No urgency at this time. Thank you for the consultation. I will continue to follow the patient with you during his hospital stay.
[2024-04-08 10:53] VITALS: BMI 28.1
[2024-04-08 11:07] LABS: Glucose,Whole Blood 191 mg/dL (70-110)
[2024-04-08 11:11] LABS: ABG Base Excess -0.7 mmol/L; ABG HCO3 29 mmol/L (21-25); ABG Oxygen Saturation 92.2 % (94-97); ABG PO2 66 mmHg (83-108); ABG TCO2 32 mmol/L (19-24)
[2024-04-08 11:24] LABS: ABG PCO2 80 mmHg (35-45); ABG PH 7.17 (7.35-7.45)
[2024-04-08 11:25] LABS: Partial Thromboplastin Time 31.9 sec (22.0-30.0); Prothrombin Time 10.9 sec (10.0-12.5)
[2024-04-08 11:33] VITALS: RESP 32
--- NOTE | 2024-04-08 12:55 | P.PN ---
Subjective Progress Note Date: 04/08/24 Principal diagnosis: Acute lower GI bleeding This is a 73-year-old white male familiar to my service, known history of severe COPD, patient was seen in the ER today, he was brought in with feeling lightheaded and dizzy and diaphoresis. Apparently since earlier today the patient has been experiencing diarrhea and he may have had according to him a syncopal episode. Does not believe that he was out for very long, patient fell, sustained a small abrasion on the right arm and left knee, patient has also been complaining of bright red blood per rectum baseline hemoglobin was 12.1 at 11:15 AM, follow-up hemoglobin at 3 PM was down to 9.4 in addition to her GI symptoms, patient is complaining of coughing wheezing and shortness of breath. GI has been consulted, I saw the patient done in the ER, and I recommended admitting the patient to the ICU. In the meantime the patient may need to have further evaluation for his GI bleeding, he will need to be placed on bronchodilators for his COPD, and will need to be closely monitored, hence I am recommending ICU admission. Patient is known to have history of severe COPD, chronic tobacco dependence, history of abdominal aortic aneurysm and had previous aortoiliac stents, he is also known to have history of hypertension, alcoholism, and his primary care physician is at the [facility]. Baseline FEV1 is in the range of 52%, patient is known to have history of chronic right apical scarring, underlying malignancy is not entirely ruled out, patient is being followed closely on outpatient basis for his abnormal CT of the chest. Chest x-ray on this admission showed mostly right apical scarring, chronic, and evidence of C OPD, otherwise no evidence of acute process. CT of the head and cervical spine, showed no acute intracranial process. Patient evaluated today on 04/05/2024, patient was admitted yesterday to the ICU, and shortly after he arrived to the ICU, his GI bleeding became extremely more profound. Surgery was consulted by gastroenterology, and the patient underwent exploratory laparotomy and subtotal colectomy with end ileostomy. Patient was brought back to the ICU last night on mechanical ventilation, remains intubated mechanically ventilated. He is now on assist-control rate of 16 tidal volume 500 FiO2 50% and PEEP of 5. ABG showed a pO2 of 123 pCO2 41 pH of 7.20, patient remains on bicarb drip. His FiO2 was cut down to 40% tidal volume cut down to 450 and Titrate at 16. Patient is requiring norepinephrine at 0.2 mcg/kg/min he is also on IV fluid at 75 cc/h propofol at 20 mcg/kg/min D5W with 3 A of bicarb running at 125 cc/h patient is empirically on Zosyn, received a total of 4 units of packed RBCs since admission his hemoglobin today is 8.7. Urine output is marginal, 10 cc/h, more fluid boluses were given. Most recent ABG showed a pO2 of 129 pCO2 43 and pH of 7.18 hence more sodium bicarb was given. WBC count is 8.0 hemoglobin 8.3 platelets are 73,000 sodium 128 potassium 5.1 chloride 110 bicarb is 16 BUN is 38 creatinine 0.95. Patient was evaluated today on 04/06/2024, remains in the ICU, intubated and mechanically ventilated. Patient is on assist-control rate of 20 tidal volume 450 FiO2 40% and PEEP of 5 ABG showed a pO2 of 74 pCO2 45 pH of 7.31. Patient required significant amount of fluids yesterday for low blood pressure and he is still requiring norepinephrine at 0.11 mcg/kg/min. Received a total of 5 units of packed RBCs since admission, his 6 unit will be given today for a hemoglobin of 6.4. Patient also received fresh frozen plasma as ordered by oncology. He seems to have elevated PTT, elevated PTT, and low platelets. Last night the patient was becoming more and more agitated and desaturating with his extreme agitation, hence added to propofol 50 mcg/kg/min I added Nimbex he is now on Nimbex drip at 2 mg/kg/min he is also on D5W with 3 A of bicarb running at 125 cc/h and this was cut down to 50 cc/h since his bicarb is improved today. Chilo woods is on TPN at 30 mL/h. And is also on fentanyl at 0.25 mcg/kg/h. Urine output is marginal about 10 to 20 cc/h being followed by nephrology. Patient is not receiving any heparin or any subcu heparin. Obviously the patient is critically ill, and his still receiving antibiotics.Zosyn for presumptive abdominal sepsis. Patient is also on methylprednisolone for his underlying COPD at 40 mg IV push every 8 hours. Patient has been seen by many consultants including general surgery, vascular surgery, hematology, nephrology, hematology seems to be concerned about possible ongoing blood loss, and recommending a tagged RBC study. Seen and evaluated today on 04/07/2024, patient remains in the ICU, critically ill. Remains intubated and mechanically ventilated, he is on assist-control rate of 22 tidal volume 450 FiO2 40% but this was increased up to 100% PEEP of 5 increased up to PEEP of 10. ABG earlier on 40% showed a pO2 of 47 pCO2 54 pH of 7.35, hands changes were made with mechanical ventilation with rate increased up to 24 PEEP increased up to 10 and FiO2 increased up to 100%. Patient remains on Nimbex remains on D5W with 3 A of bicarb at 25 cc/h, this will be discontinued today .remains on norepinephrine at 0.04 TPN at 85 mL/h propofol 50 mcg/kg/min vasopressin at 0.03 units/min. Hemoglobin today is 9, patient received a total of 6 units of packed RBCs since admission. Sputum is positive for Pseudomonas, remind you patient is on Zosyn. There is negative output from the ileostomy. Patient remains critically ill. Chest x-ray showed chronic right upper lobe changes, increased opacity in the left lower lobe, consistent with atelectasis, and/or possible infiltrate/pneumonia. Patient is empirically on antibiotics. WBC count today is 11.9 hemoglobin is 9, basic metabolic profile is normal bicarb is 27 BUN is 70 creatinine 2.33 Was evaluated today on 04/08/2024, patient seems to be getting worse his overall clinical status is definitely worse today compared to the last couple of days. Patient remains intubated and mechanically ventilated, his ABG is reflecting a significant hypercapnia with low pH, could not 6 the hypercapnia with hyperventilating the patient, obviously has a significant space. And his pH remains low with a pCO2 in the 80s high 80s, and I am recommending bicarb given IV push, I am also starting the patient on a bicarb drip. His vent settings were changed, now he is on pressure control mode of mechanical ventilation with pressure control of 25, rate is 30 inspiratory time is 0.8, and PEEP remains at 10. His last ABG showed a pO2 of 74 pCO2 88 pH of 7.10. His echocardiogram yesterday showed pericardial effusion, we are definitely concerned about tamponade, and a repeat echocardiogram is pending cardiology is on the case. Patient is developing worsening renal failure, very poor urine output no good response to diuretics, and nephrology is considering renal replacement therapy. Patient is on Nimbex, norepinephrine at 0.22, vasopressin at 0.03 units/min, patient is also on fentanyl 0.25 propofol at 50 receiving TPN at 85 he has received a total of 7 units of packed RBCs since admission and 1 unit of fresh frozen plasma. Remains empirically on Zosyn. His BUN today is 90 creatinine 3.13 bicarb is normal. Electrolytes are relatively normal except for potassium of 5.2. Chest x-ray continues to show persistent left lower lobe opacity with small pleural effusion, improving and he has a persistent density in the right apical region which is chronic. His echocardiogram today showed a small pericardial effusion and normal LV systolic function, hence the patient does not need any intervention/pericardiocentesis. Today I plan to update the family on his condition, and may even consider going to comfort care measures as his condition seems to be definitely getting worse. Will even discussed the option of dialysis with the family Objective - Vital Signs Vital signs: Vital Signs Temp 97.9 F 04/08/24 08:00 Pulse 70 04/08/24 12:02 Resp 32 H 04/08/24 11:30 BP 100/62 04/08/24 11:00 Pulse Ox 97 04/08/24 11:30 FiO2 85 04/08/24 11:53 Intake & Output 04/07/24 04/08/24 04/08/24 18:59 06:59 18:59 Intake Total 2692.563 2699.550 797.294 Output Total 215 480 225 Balance 2477.563 2219.550 572.294 Weight 84.1 kg 84.1 kg Intake: IV 1570 1120 425 Dextrose 5% in Water 1, 250 000 ml @ 50 mls/hr IV . Q23H [facility] with Sodium Bicarb (1 Meq/ml) 150 ml Rx#:[id number] Piperacillin-Tazobactam 3 300 100 .375 gm In Sodium Chloride 0.9% 100 ml @ 25 mls/hr IVPB Q8H [facility] Rx#: [id number] TPN 1020 1020 425 Intake, IV Titration 170.383 8219.550 372.294 Amount Cisatracurium 200 mg In 200.000 124.462 Sodium Chloride 0.9% 180 ml @ 1 MCG/KG/MIN 4.002 mls/hr IV .Q24H [facility] Rx#: [id number] Mvi, Adult No.4 with Vit 1048 K 10 ml Trace (Conc-1Ml/ Dose) 1 ml Sodium Acetate 40 meq Magnesium Sulfate gm 1 gm Calcium Gluconate 1 gm Potassium Acetate 10 meq In Amino Acid 5%-D15w 1,000 ml @ 85 mls/hr IV .BY DURATION [facility] Rx#:[id number] Norepinephrine 4 mg In 254.000 431.550 247.832 Sodium Chloride 0.9% 250 ml @ 0.03 MCG/KG/MIN 7. 258 mls/hr IV .Q24H [facility] Rx#:[id number] Sodium Chloride 0.9% 80 75.866 ml @ 0.25 MCG/KG/HR 1.668 mls/hr IV .Q24H [facility] with fentaNYL (PF) 1,000 mcg Rx#:[id number] Vasopressin 60 unit In 82.697 Sodium Chloride 0.9% 150 ml @ 0.03 UNITS/MIN 4.59 mls/hr IV .Q24H [facility] Rx#: [id number] propofoL 1,000 mg In 200 100 Empty Bag 1 bag @ 15 MCG/ KG/MIN 5.715 mls/hr IV . [id number] [facility] Rx#:[id number] Blood Product 310 Rc As-1 Unit 310 [id number] Output: Gastric Drainage 50 Urine 215 430 65 Stool 160 Other: Voiding Method Indwelling Catheter Indwelling Catheter Indwelling Catheter # Voids 1 ABP, PAP, CO, CI - Last Documented Arterial Blood Pressure 133/53 - Exam GENERAL EXAM: Reveals 73-year-old white male, intubated and mechanically ventilated. Sedated and paralyzed HEAD: Normocephalic and atraumatic, endotracheal tube and nasogastric tube intact. EYES: Normal reaction of pupils, equal size. Pale conjunctivae, nonicteric NOSE: Clear with pink turbinates. THROAT: No erythema or exudates. NECK: No masses, no JVD. CHEST: No chest wall deformity. LUNGS: Diminished breath sound crackles at the bases with some wheezing CVS: S1 and S2 normal with no audible murmur, regular rhythm. No extra heart sounds ABDOMEN: Postsurgical, ileostomy is noted dark remains dark, dark bloody output from the ileostomy this is being followed by surgery. SKIN: No rashes CENTRAL NERVOUS SYSTEM: Not assessed patient is sedated, on propofol and Nimbex EXTREMITIES: There is no peripheral edema, clubbing, or cyanosis. Peripheral pulses are intact. - Labs CBC & Chem 7: 04/08/24 06:00 04/08/24 06:00 Labs: Abnormal Lab Results - Last 24 Hours (Table) 04/04/24 04/07/24 04/07/24 Range/Units 16:35 13:11 13:15 WBC (3.8-10.6) k/uL RBC (4.30-5.90) m/uL Hgb (13.0-17.5) gm/dL Hct (39.0-53.0) % RDW (11.5-15.5) % Plt Count (150-450) k/uL APTT 32.1 H (22.0-30.0) sec ABG pH (7.35-7.45) ABG pCO2 (35-45) mmHg ABG pO2 (83-108) mmHg ABG HCO3 (21-25) mmol/L ABG Total CO2 (19-24) mmol/L ABG O2 Saturation (94-97) % Hemoglobin (13.0-17.5) gm/dL Sodium (137-145) mmol/L Potassium (3.5-5.1) mmol/L BUN (9-20) mg/dL Creatinine (0.66-1.25) mg/dL Glucose (74-99) mg/dL POC Glucose (mg/dL) 186 H (70-110) mg/dL Calcium (8.4-10.2) mg/dL Phosphorus (2.5-4.5) mg/dL Magnesium (1.6-2.3) mg/dL AST (17-59) U/L ALT (4-49) U/L Total Protein (6.3-8.2) g/dL Albumin (3.5-5.0) g/dL Crossmatch See Detail 04/07/24 04/07/24 04/07/24 Range/Units 20:19 20:22 23:04 WBC 18.6 H (3.8-10.6) k/uL RBC 3.49 L (4.30-5.90) m/uL Hgb 10.9 L (13.0-17.5) gm/dL Hct 33.0 L (39.0-53.0) % RDW 16.1 H (11.5-15.5) % Plt Count 68 L (150-450) k/uL APTT (22.0-30.0) sec ABG pH (7.35-7.45) ABG pCO2 (35-45) mmHg ABG pO2 (83-108) mmHg ABG HCO3 (21-25) mmol/L ABG Total CO2 (19-24) mmol/L ABG O2 Saturation (94-97) % Hemoglobin (13.0-17.5) gm/dL Sodium (137-145) mmol/L Potassium (3.5-5.1) mmol/L BUN (9-20) mg/dL Creatinine (0.66-1.25) mg/dL Glucose (74-99) mg/dL POC Glucose (mg/dL) 199 H 226 H (70-110) mg/dL Calcium (8.4-10.2) mg/dL Phosphorus (2.5-4.5) mg/dL Magnesium (1.6-2.3) mg/dL AST (17-59) U/L ALT (4-49) U/L Total Protein (6.3-8.2) g/dL Albumin (3.5-5.0) g/dL Crossmatch 04/07/24 04/08/24 04/08/24 Range/Units 23:04 00:41 05:55 WBC (3.8-10.6) k/uL RBC (4.30-5.90) m/uL Hgb (13.0-17.5) gm/dL Hct (39.0-53.0) % RDW (11.5-15.5) % Plt Count (150-450) k/uL APTT (22.0-30.0) sec ABG pH 7.05 L* (7.35-7.45) ABG pCO2 >98 H* (35-45) mmHg ABG pO2 202 H (83-108) mmHg ABG HCO3 (21-25) mmol/L ABG Total CO2 (19-24) mmol/L ABG O2 Saturation 99.4 H (94-97) % Hemoglobin 11.5 L (13.0-17.5) gm/dL Sodium 133 L (137-145) mmol/L Potassium (3.5-5.1) mmol/L BUN 85 H (9-20) mg/dL Creatinine 2.87 H (0.66-1.25) mg/dL Glucose 194 H (74-99) mg/dL POC Glucose (mg/dL) 206 H (70-110) mg/dL Calcium 7.8 L (8.4-10.2) mg/dL Phosphorus (2.5-4.5) mg/dL Magnesium (1.6-2.3) mg/dL AST (17-59) U/L ALT (4-49) U/L Total Protein (6.3-8.2) g/dL Albumin (3.5-5.0) g/dL Crossmatch 04/08/24 04/08/24 04/08/24 Range/Units 06:00 06:00 08:26 WBC 23.1 H (3.8-10.6) k/uL RBC 3.73 L (4.30-5.90) m/uL Hgb 11.3 L (13.0-17.5) gm/dL Hct 36.3 L (39.0-53.0) % RDW (11.5-15.5) % Plt Count 84 L (150-450) k/uL APTT (22.0-30.0) sec ABG pH 7.10 L* (7.35-7.45) ABG pCO2 88 H* (35-45) mmHg ABG pO2 74 L (83-108) mmHg ABG HCO3 27 H (21-25) mmol/L ABG Total CO2 30 H (19-24) mmol/L ABG O2 Saturation 93.7 L (94-97) % Hemoglobin 11.1 L (13.0-17.5) gm/dL Sodium 134 L (137-145) mmol/L Potassium 5.2 H (3.5-5.1) mmol/L BUN 90 H (9-20) mg/dL Creatinine 3.13 H (0.66-1.25) mg/dL Glucose (74-99) mg/dL POC Glucose (mg/dL) (70-110) mg/dL Calcium 7.9 L (8.4-10.2) mg/dL Phosphorus 7.3 H (2.5-4.5) mg/dL Magnesium 2.5 H (1.6-2.3) mg/dL AST 554 H (17-59) U/L ALT 1914 H (4-49) U/L Total Protein 4.0 L (6.3-8.2) g/dL Albumin 2.1 L (3.5-5.0) g/dL Crossmatch 04/08/24 04/08/24 04/08/24 Range/Units 11:00 11:05 11:07 WBC (3.8-10.6) k/uL RBC (4.30-5.90) m/uL Hgb (13.0-17.5) gm/dL Hct (39.0-53.0) % RDW (11.5-15.5) % Plt Count (150-450) k/uL APTT 31.9 H (22.0-30.0) sec ABG pH 7.17 L* (7.35-7.45) ABG pCO2 80 H* (35-45) mmHg ABG pO2 66 L (83-108) mmHg ABG HCO3 29 H (21-25) mmol/L ABG Total CO2 32 H (19-24) mmol/L ABG O2 Saturation 92.2 L (94-97) % Hemoglobin 10.7 L (13.0-17.5) gm/dL Sodium (137-145) mmol/L Potassium (3.5-5.1) mmol/L BUN (9-20) mg/dL Creatinine (0.66-1.25) mg/dL Glucose (74-99) mg/dL POC Glucose (mg/dL) 191 H (70-110) mg/dL Calcium (8.4-10.2) mg/dL Phosphorus (2.5-4.5) mg/dL Magnesium (1.6-2.3) mg/dL AST (17-59) U/L ALT (4-49) U/L Total Protein (6.3-8.2) g/dL Albumin (3.5-5.0) g/dL Crossmatch Microbiology - Last 24 Hours (Table) 04/05/24 08:26 Blood Culture - Preliminary Blood Assessment and Plan Assessment: Impression: Massive lower GI bleeding, noted to be from right and transverse colon requiring exploratory laparotomy, subtotal colectomy, and ileostomy, postoperative day #4 Acute exacerbation of COPD Pericardial effusion but no tamponade Acute blood loss anemia, patient required 7 units of packed RBCs transfusion since admission,, and 1 unit of fresh frozen plasma Chronic right apical scarring History of alcoholism History of abdominal aortic aneurysm status post aortoiliac stent Acute kidney injury most likely secondary to hypotension and acute tubular necrosis creatinine is worsening and considering his urine output, nephrology is considering hemodialysis Shock liver with transaminitis, improvement is noted slightly in liver enzymes. Benign essential hypertension Ongoing tobacco dependence Chronic right upper lobe scarring, underlying malignancy is not entirely ruled out but felt to be less likely Thrombocytopenia with elevated pro time and elevated PTT but relatively normal fibrinogen Recommendation: Continue fluid resuscitation Will restart bicarb drip today mostly because of his persistently low pH with hypercapnia which I could not adjust, patient is on maximal hyperventilation rate is now 32 and he is running a tidal volume anywhere between 450 up to 500 based on pressure control mode of mechanical ventilation, nonetheless continues to have hypercapnia Continue blood products including packed RBCs as needed for hemoglobin below 7 Continue ventilatory support Continue sedation and paralysis/Nimbex as well as propofol and fentanyl. Continue hemodynamic support Continue Protonix/GI prophylaxis Avoid heparin because of low platelets Continue to monitor hemoglobin hematocrit and transfuse for hemoglobin below 7 Continue bronchodilators including DuoNeb, Symbicort, and Solu-Medrol. Continue IV Zosyn Patient is becoming more critically ill and will discussed with the family the option of comfort care measures/terminal weaning otherwise patient may have to be considered for hemodialysis. TPN for nutritional support Poor prognosis Critical care time is over 30 minutes Time with Patient: Greater than 30
[2024-04-08 13:43] VITALS: TEMP 95.9
[2024-04-08] MEDS: DEXTROSE 5% IN WATER 1,000 ML with SODIUM BICARB (1 MEQ/ML) 150 ML IV SCH (13:47)
[2024-04-08 14:33] LABS: Glucose,Whole Blood 189 mg/dL (70-110)
--- NOTE | 2024-04-08 15:33 | P.PN ---
Subjective Progress Note Date: 04/08/24 Patient remains in the ICU, ventilated and on pressors. Went into a-fib RVR, amioadrone drip started. Hgb improved, 11.3. Plts 84,000. S/p 7 units PRBCs. LFTs improving, however kidney function has declined, creatinine 3.13, GFR 19. INR 1.0, DIC labs negative Objective - Vital Signs Vital signs: Vital Signs Temp 95.9 F L 04/08/24 12:00 Pulse 73 04/08/24 13:30 Resp 32 H 04/08/24 13:30 BP 100/62 04/08/24 13:30 Pulse Ox 94 L 04/08/24 13:30 FiO2 85 04/08/24 11:53 Intake & Output 04/07/24 04/08/24 04/08/24 18:59 06:59 18:59 Intake Total 2692.563 2699.550 827.309 Output Total 215 480 225 Balance 2477.563 2219.550 602.309 Weight 84.1 kg 84.1 kg Intake: IV 1570 1120 425 Dextrose 5% in Water 1, 250 000 ml @ 50 mls/hr IV . Q23H [facility] with Sodium Bicarb (1 Meq/ml) 150 ml Rx#:[id number] Piperacillin-Tazobactam 3 300 100 .375 gm In Sodium Chloride 0.9% 100 ml @ 25 mls/hr IVPB Q8H [facility] Rx#: [id number] TPN 1020 1020 425 Intake, IV Titration 690.919 0279.550 402.309 Amount Cisatracurium 200 mg In 200.000 154.477 Sodium Chloride 0.9% 180 ml @ 1 MCG/KG/MIN 4.002 mls/hr IV .Q24H [facility] Rx#: [id number] Mvi, Adult No.4 with Vit 1048 K 10 ml Trace (Conc-1Ml/ Dose) 1 ml Sodium Acetate 40 meq Magnesium Sulfate gm 1 gm Calcium Gluconate 1 gm Potassium Acetate 10 meq In Amino Acid 5%-D15w 1,000 ml @ 85 mls/hr IV .BY DURATION [facility] Rx#:[id number] Norepinephrine 4 mg In 254.000 431.550 247.832 Sodium Chloride 0.9% 250 ml @ 0.03 MCG/KG/MIN 7. 258 mls/hr IV .Q24H [facility] Rx#:[id number] Sodium Chloride 0.9% 80 75.866 ml @ 0.25 MCG/KG/HR 1.668 mls/hr IV .Q24H [facility] with fentaNYL (PF) 1,000 mcg Rx#:[id number] Vasopressin 60 unit In 82.697 Sodium Chloride 0.9% 150 ml @ 0.03 UNITS/MIN 4.59 mls/hr IV .Q24H [facility] Rx#: [id number] propofoL 1,000 mg In 200 100 Empty Bag 1 bag @ 15 MCG/ KG/MIN 5.715 mls/hr IV . [id number] [facility] Rx#:[id number] Blood Product 310 Rc As-1 Unit 310 [id number] Output: Gastric Drainage 50 Urine 215 430 65 Stool 160 Other: Voiding Method Indwelling Catheter Indwelling Catheter Indwelling Catheter # Voids 1 ABP, PAP, CO, CI - Last Documented Arterial Blood Pressure 115/53 - Constitutional General appearance: Present: no acute distress - Respiratory Details: ventilated breath sounds - Cardiovascular Details: skin warm and dry - Gastrointestinal Gastrointestinal Comment(s): ostomy in situ, outpt darker today, still have slight dark red color, improving - Integumentary Integumentary: Absent: cyanotic - Labs CBC & Chem 7: 04/08/24 06:00 04/08/24 14:30 Labs: Abnormal Lab Results - Last 24 Hours (Table) 04/04/24 04/07/24 04/07/24 Range/Units 16:35 20:19 20:22 WBC (3.8-10.6) k/uL RBC (4.30-5.90) m/uL Hgb (13.0-17.5) gm/dL Hct (39.0-53.0) % RDW (11.5-15.5) % Plt Count (150-450) k/uL APTT (22.0-30.0) sec ABG pH (7.35-7.45) ABG pCO2 (35-45) mmHg ABG pO2 (83-108) mmHg ABG HCO3 (21-25) mmol/L ABG Total CO2 (19-24) mmol/L ABG O2 Saturation (94-97) % Hemoglobin (13.0-17.5) gm/dL Sodium (137-145) mmol/L Potassium (3.5-5.1) mmol/L BUN (9-20) mg/dL Creatinine (0.66-1.25) mg/dL Glucose (74-99) mg/dL POC Glucose (mg/dL) 199 H 226 H (70-110) mg/dL Calcium (8.4-10.2) mg/dL Phosphorus (2.5-4.5) mg/dL Magnesium (1.6-2.3) mg/dL AST (17-59) U/L ALT (4-49) U/L Total Protein (6.3-8.2) g/dL Albumin (3.5-5.0) g/dL Crossmatch See Detail 04/07/24 04/07/24 04/08/24 Range/Units 23:04 23:04 00:41 WBC 18.6 H (3.8-10.6) k/uL RBC 3.49 L (4.30-5.90) m/uL Hgb 10.9 L (13.0-17.5) gm/dL Hct 33.0 L (39.0-53.0) % RDW 16.1 H (11.5-15.5) % Plt Count 68 L (150-450) k/uL APTT (22.0-30.0) sec ABG pH (7.35-7.45) ABG pCO2 (35-45) mmHg ABG pO2 (83-108) mmHg ABG HCO3 (21-25) mmol/L ABG Total CO2 (19-24) mmol/L ABG O2 Saturation (94-97) % Hemoglobin (13.0-17.5) gm/dL Sodium 133 L (137-145) mmol/L Potassium (3.5-5.1) mmol/L BUN 85 H (9-20) mg/dL Creatinine 2.87 H (0.66-1.25) mg/dL Glucose 194 H (74-99) mg/dL POC Glucose (mg/dL) 206 H (70-110) mg/dL Calcium 7.8 L (8.4-10.2) mg/dL Phosphorus (2.5-4.5) mg/dL Magnesium (1.6-2.3) mg/dL AST (17-59) U/L ALT (4-49) U/L Total Protein (6.3-8.2) g/dL Albumin (3.5-5.0) g/dL Crossmatch 04/08/24 04/08/24 04/08/24 Range/Units 05:55 06:00 06:00 WBC 23.1 H (3.8-10.6) k/uL RBC 3.73 L (4.30-5.90) m/uL Hgb 11.3 L (13.0-17.5) gm/dL Hct 36.3 L (39.0-53.0) % RDW (11.5-15.5) % Plt Count 84 L (150-450) k/uL APTT (22.0-30.0) sec ABG pH 7.05 L* (7.35-7.45) ABG pCO2 >98 H* (35-45) mmHg ABG pO2 202 H (83-108) mmHg ABG HCO3 (21-25) mmol/L ABG Total CO2 (19-24) mmol/L ABG O2 Saturation 99.4 H (94-97) % Hemoglobin 11.5 L (13.0-17.5) gm/dL Sodium 134 L (137-145) mmol/L Potassium 5.2 H (3.5-5.1) mmol/L BUN 90 H (9-20) mg/dL Creatinine 3.13 H (0.66-1.25) mg/dL Glucose (74-99) mg/dL POC Glucose (mg/dL) (70-110) mg/dL Calcium 7.9 L (8.4-10.2) mg/dL Phosphorus 7.3 H (2.5-4.5) mg/dL Magnesium 2.5 H (1.6-2.3) mg/dL AST 554 H (17-59) U/L ALT 1914 H (4-49) U/L Total Protein 4.0 L (6.3-8.2) g/dL Albumin 2.1 L (3.5-5.0) g/dL Crossmatch 04/08/24 04/08/24 04/08/24 Range/Units 08:26 11:00 11:05 WBC (3.8-10.6) k/uL RBC (4.30-5.90) m/uL Hgb (13.0-17.5) gm/dL Hct (39.0-53.0) % RDW (11.5-15.5) % Plt Count (150-450) k/uL APTT 31.9 H (22.0-30.0) sec ABG pH 7.10 L* (7.35-7.45) ABG pCO2 88 H* (35-45) mmHg ABG pO2 74 L (83-108) mmHg ABG HCO3 27 H (21-25) mmol/L ABG Total CO2 30 H (19-24) mmol/L ABG O2 Saturation 93.7 L (94-97) % Hemoglobin 11.1 L (13.0-17.5) gm/dL Sodium (137-145) mmol/L Potassium (3.5-5.1) mmol/L BUN (9-20) mg/dL Creatinine (0.66-1.25) mg/dL Glucose (74-99) mg/dL POC Glucose (mg/dL) 191 H (70-110) mg/dL Calcium (8.4-10.2) mg/dL Phosphorus (2.5-4.5) mg/dL Magnesium (1.6-2.3) mg/dL AST (17-59) U/L ALT (4-49) U/L Total Protein (6.3-8.2) g/dL Albumin (3.5-5.0) g/dL Crossmatch 04/08/24 Range/Units 11:07 WBC (3.8-10.6) k/uL RBC (4.30-5.90) m/uL Hgb (13.0-17.5) gm/dL Hct (39.0-53.0) % RDW (11.5-15.5) % Plt Count (150-450) k/uL APTT (22.0-30.0) sec ABG pH 7.17 L* (7.35-7.45) ABG pCO2 80 H* (35-45) mmHg ABG pO2 66 L (83-108) mmHg ABG HCO3 29 H (21-25) mmol/L ABG Total CO2 32 H (19-24) mmol/L ABG O2 Saturation 92.2 L (94-97) % Hemoglobin 10.7 L (13.0-17.5) gm/dL Sodium (137-145) mmol/L Potassium (3.5-5.1) mmol/L BUN (9-20) mg/dL Creatinine (0.66-1.25) mg/dL Glucose (74-99) mg/dL POC Glucose (mg/dL) (70-110) mg/dL Calcium (8.4-10.2) mg/dL Phosphorus (2.5-4.5) mg/dL Magnesium (1.6-2.3) mg/dL AST (17-59) U/L ALT (4-49) U/L Total Protein (6.3-8.2) g/dL Albumin (3.5-5.0) g/dL Crossmatch Microbiology - Last 24 Hours (Table) 04/05/24 08:26 Blood Culture - Preliminary Blood Assessment and Plan (1) Acute kidney injury Current Visit: Yes Status: Acute Priority: High Code(s): N17.9 - ACUTE KIDNEY FAILURE, UNSPECIFIED SNOMED Code(s): 66456637 (2) Elevated LFTs Current Visit: Yes Status: Acute Priority: High Code(s): R79.89 - OTHER SPECIFIED ABNORMAL FINDINGS OF BLOOD CHEMISTRY SNOMED Code(s): 755704346 (3) GI bleed Current Visit: Yes Status: Acute Priority: High Code(s): K92.2 - GASTROINTESTINAL HEMORRHAGE, UNSPECIFIED SNOMED Code(s): 03499821 (4) AAA (abdominal aortic aneurysm) Current Visit: Yes Status: Acute Priority: High Code(s): I71.4 - ABDOMINAL AORTIC ANEURYSM, WITHOUT RUPTURE * DO NOT USE * SNOMED Code(s): 092362029 (5) Coagulopathy Current Visit: Yes Status: Acute Priority: High Code(s): D68.9 - COAGULATI ON DEFECT, UNSPECIFIED SNOMED Code(s): 33702776 Plan: GI bleed, coagulopathy: Presented to the ER for lightheadedness and rectal bleeding. Upon review of notes it appears patient had been experiencing diarrhea, and had bright red stools, and associated dizziness and syncopal episode. -CT chest abdomen pelvis showed resolution of the large spiculated mass seen on prior CT chest dated 03/05/2022, been replaced by severe pleural parenchymal scarring but with no suspicious mass. Stable 4.2 x 4.3 cm aneurysmal dilatation ascending thoracic aorta. Extravasation of contrast into the right colon and transverse colon consistent with acute hemorrhage/GI bleed. Aortic stent graft with large [place] aneurysm. No evidence of endoleak. -Patient underwent exploratory laparotomy on 04/04/2024 with subtotal colectomy with end ileostomy. He then underwent EGD on 04/05 which showed old blood noted in the stomach and duodenum. Gastritis and duodenitis noted. Some fresh blood seen in the third portion of the duodenum and suctioning was being performed with no obvious mucosal lesion or ulcers identified. Concern for small bowel source of bleeding and rule out aortoenteric fistula. -Vascular surgery consulted -CTA of the abdomen was obtained which showed postsurgical changes within the abdomen with free air. Aortobiiliac endograft changes. Size of the excluded aneurysm measures up to 6.7 cm. Additional stenting within the aneurysmal right common iliac artery measuring up to 2.5 cm with additional stenting of the left common iliac artery. Hypodensity within the right iliac limb. No evidence of active intraluminal hemorrhage. Periorbital edema in the liver. -Patient has been following with pulmonology for previously noted lung mass and PET/CT obtained on 12/27/2023 was reviewed which showed focal areas of increased uptake within the right upper lobe masslike density. Scattered hilar and mediastinal areas of uptake suspicious. Right supraclavicular and left neck foci of uptake. Mild uptake within the right mid and lower lung franklin which favor mild inflammatory changes. Upon review of images, appeared to have uptake with abdomen, possibly in small bowel which was not reported on interpretation. -On admit CBC showed WBC 10.3, hemoglobin 8.7, platelets 77,000. Patient is s/p 6 units PRBCs and 1 unit of FFP. Today hemoglobin stable at 9.0. Plts 53,000. -On admit PT/INR was within normal limits. Repeat coags showing PT 17.9, INR 1.8, fibrinogen 217. Patient has also had a significant increase in LFTs with AST 2789, ALT 2564. Bilirubin normal at 0.5. -Coagulopathy likely r/t shock liver due to GI hemorrhage -Goal of INR less than 2.0. S/p 1 unit of FFP. INR 1.0 today, DIC labs negative -Hgb improved to 11.3 -Coags and CBC daily -Will obtain tagged RBC scan to identify source of GI bleed. Pending results may need to be considered for endovascular coiling attests: I have seen and examined patient, performed H&P, developed impression and plan of care. Discussed with dictator. Agree with doc clementina, dictated as a scribe
[2024-04-08 15:44] VITALS: PULSE 74
--- NOTE | 2024-04-08 16:36 | P.PN ---
Subjective patient seen and evaluated at bedside. Patient removed requiring more levo this a.m. and increase and ventilator settings Objective - Vital Signs Vital signs: Vital Signs Temp 95.9 F L 04/08/24 12:00 Pulse 74 04/08/24 15:43 Resp 32 H 04/08/24 13:30 BP 100/62 04/08/24 13:30 Pulse Ox 94 L 04/08/24 13:30 FiO2 85 04/08/24 15:36 Intake & Output 04/07/24 04/08/24 04/08/24 18:59 06:59 18:59 Intake Total 2692.563 2699.550 912.309 Output Total 215 480 240 Balance 2477.563 2219.550 672.309 Weight 84.1 kg 84.1 kg Intake: IV 1570 1120 510 Dextrose 5% in Water 1, 250 000 ml @ 50 mls/hr IV . Q23H [facility] with Sodium Bicarb (1 Meq/ml) 150 ml Rx#:[id number] Piperacillin-Tazobactam 3 300 100 .375 gm In Sodium Chloride 0.9% 100 ml @ 25 mls/hr IVPB Q8H [facility] Rx#: [id number] TPN 1020 1020 510 Intake, IV Titration 285.712 0353.550 402.309 Amount Cisatracurium 200 mg In 200.000 154.477 Sodium Chloride 0.9% 180 ml @ 1 MCG/KG/MIN 4.002 mls/hr IV .Q24H [facility] Rx#: [id number] Mvi, Adult No.4 with Vit 1048 K 10 ml Trace (Conc-1Ml/ Dose) 1 ml Sodium Acetate 40 meq Magnesium Sulfate gm 1 gm Calcium Gluconate 1 gm Potassium Acetate 10 meq In Amino Acid 5%-D15w 1,000 ml @ 85 mls/hr IV .BY DURATION [facility] Rx#:[id number] Norepinephrine 4 mg In 254.000 431.550 247.832 Sodium Chloride 0.9% 250 ml @ 0.03 MCG/KG/MIN 7. 258 mls/hr IV .Q24H [facility] Rx#:[id number] Sodium Chloride 0.9% 80 75.866 ml @ 0.25 MCG/KG/HR 1.668 mls/hr IV .Q24H [facility] with fentaNYL (PF) 1,000 mcg Rx#:[id number] Vasopressin 60 unit In 82.697 Sodium Chloride 0.9% 150 ml @ 0.03 UNITS/MIN 4.59 mls/hr IV .Q24H [facility] Rx#: [id number] propofoL 1,000 mg In 200 100 Empty Bag 1 bag @ 15 MCG/ KG/MIN 5.715 mls/hr IV . [id number] [facility] Rx#:[id number] Blood Product 310 Rc As-1 Unit 310 [id number] Output: Gastric Drainage 50 Urine 215 430 80 Stool 160 Other: Voiding Method Indwelling Catheter Indwelling Catheter Indwelling Catheter # Voids 1 ABP, PAP, CO, CI - Last Documented Arterial Blood Pressure 115/53 - Exam general no acute distress Cardiovascular tachycardic Pulmonary labored on ventilator with ventilator changes Abdomen is soft, nondistended, no guarding rebound tenderness incisions are clean dry and intact with dark output from ostomy - Labs CBC & Chem 7: 04/08/24 06:00 04/08/24 14:30 Labs: Abnormal Lab Results - Last 24 Hours (Table) 04/04/24 04/07/24 04/07/24 Range/Units 16:35 20:19 20:22 WBC (3.8-10.6) k/uL RBC (4.30-5.90) m/uL Hgb (13.0-17.5) gm/dL Hct (39.0-53.0) % RDW (11.5-15.5) % Plt Count (150-450) k/uL APTT (22.0-30.0) sec ABG pH (7.35-7.45) ABG pCO2 (35-45) mmHg ABG pO2 (83-108) mmHg ABG HCO3 (21-25) mmol/L ABG Total CO2 (19-24) mmol/L ABG O2 Saturation (94-97) % Hemoglobin (13.0-17.5) gm/dL Sodium (137-145) mmol/L Potassium (3.5-5.1) mmol/L BUN (9-20) mg/dL Creatinine (0.66-1.25) mg/dL Glucose (74-99) mg/dL POC Glucose (mg/dL) 199 H 226 H (70-110) mg/dL Calcium (8.4-10.2) mg/dL Phosphorus (2.5-4.5) mg/dL Magnesium (1.6-2.3) mg/dL AST (17-59) U/L ALT (4-49) U/L Total Protein (6.3-8.2) g/dL Albumin (3.5-5.0) g/dL Crossmatch See Detail 04/07/24 04/07/24 04/08/24 Range/Units 23:04 23:04 00:41 WBC 18.6 H (3.8-10.6) k/uL RBC 3.49 L (4.30-5.90) m/uL Hgb 10.9 L (13.0-17.5) gm/dL Hct 33.0 L (39.0-53.0) % RDW 16.1 H (11.5-15.5) % Plt Count 68 L (150-450) k/uL APTT (22.0-30.0) sec ABG pH (7.35-7.45) ABG pCO2 (35-45) mmHg ABG pO2 (83-108) mmHg ABG HCO3 (21-25) mmol/L ABG Total CO2 (19-24) mmol/L ABG O2 Saturation (94-97) % Hemoglobin (13.0-17.5) gm/dL Sodium 133 L (137-145) mmol/L Potassium (3.5-5.1) mmol/L BUN 85 H (9-20) mg/dL Creatinine 2.87 H (0.66-1.25) mg/dL Glucose 194 H (74-99) mg/dL POC Glucose (mg/dL) 206 H (70-110) mg/dL Calcium 7.8 L (8.4-10.2) mg/dL Phosphorus (2.5-4.5) mg/dL Magnesium (1.6-2.3) mg/dL AST (17-59) U/L ALT (4-49) U/L Total Protein (6.3-8.2) g/dL Albumin (3.5-5.0) g/dL Crossmatch 04/08/24 04/08/24 04/08/24 Range/Units 05:55 06:00 06:00 WBC 23.1 H (3.8-10.6) k/uL RBC 3.73 L (4.30-5.90) m/uL Hgb 11.3 L (13.0-17.5) gm/dL Hct 36.3 L (39.0-53.0) % RDW (11.5-15.5) % Plt Count 84 L (150-450) k/uL APTT (22.0-30.0) sec ABG pH 7.05 L* (7.35-7.45) ABG pCO2 >98 H* (35-45) mmHg ABG pO2 202 H (83-108) mmHg ABG HCO3 (21-25) mmol/L ABG Total CO2 (19-24) mmol/L ABG O2 Saturation 99.4 H (94-97) % Hemoglobin 11.5 L (13.0-17.5) gm/dL Sodium 134 L (137-145) mmol/L Potassium 5.2 H (3.5-5.1) mmol/L BUN 90 H (9-20) mg/dL Creatinine 3.13 H (0.66-1.25) mg/dL Glucose (74-99) mg/dL POC Glucose (mg/dL) (70-110) mg/dL Calcium 7.9 L (8.4-10.2) mg/dL Phosphorus 7.3 H (2.5-4.5) mg/dL Magnesium 2.5 H (1.6-2.3) mg/dL AST 554 H (17-59) U/L ALT 1914 H (4-49) U/L Total Protein 4.0 L (6.3-8.2) g/dL Albumin 2.1 L (3.5-5.0) g/dL Crossmatch 04/08/24 04/08/24 04/08/24 Range/Units 08:26 11:00 11:05 WBC (3.8-10.6) k/uL RBC (4.30-5.90) m/uL Hgb (13.0-17.5) gm/dL Hct (39.0-53.0) % RDW (11.5-15.5) % Plt Count (150-450) k/uL APTT 31.9 H (22.0-30.0) sec ABG pH 7.10 L* (7.35-7.45) ABG pCO2 88 H* (35-45) mmHg ABG pO2 74 L (83-108) mmHg ABG HCO3 27 H (21-25) mmol/L ABG Total CO2 30 H (19-24) mmol/L ABG O2 Saturation 93.7 L (94-97) % Hemoglobin 11.1 L (13.0-17.5) gm/dL Sodium (137-145) mmol/L Potassium (3.5-5.1) mmol/L BUN (9-20) mg/dL Creatinine (0.66-1.25) mg/dL Glucose (74-99) mg/dL POC Glucose (mg/dL) 191 H (70-110) mg/dL Calcium (8.4-10.2) mg/dL Phosphorus (2.5-4.5) mg/dL Magnesium (1.6-2.3) mg/dL AST (17-59) U/L ALT (4-49) U/L Total Protein (6.3-8.2) g/dL Albumin (3.5-5.0) g/dL Crossmatch 04/08/24 04/08/24 Range/Units 11:07 14:31 WBC (3.8-10.6) k/uL RBC (4.30-5.90) m/uL Hgb (13.0-17.5) gm/dL Hct (39.0-53.0) % RDW (11.5-15.5) % Plt Count (150-450) k/uL APTT (22.0-30.0) sec ABG pH 7.17 L* (7.35-7.45) ABG pCO2 80 H* (35-45) mmHg ABG pO2 66 L (83-108) mmHg ABG HCO3 29 H (21-25) mmol/L ABG Total CO2 32 H (19-24) mmol/L ABG O2 Saturation 92.2 L (94-97) % Hemoglobin 10.7 L (13.0-17.5) gm/dL Sodium (137-145) mmol/L Potassium (3.5-5.1) mmol/L BUN (9-20) mg/dL Creatinine (0.66-1.25) mg/dL Glucose (74-99) mg/dL POC Glucose (mg/dL) 189 H (70-110) mg/dL Calcium (8.4-10.2) mg/dL Phosphorus (2.5-4.5) mg/dL Magnesium (1.6-2.3) mg/dL AST (17-59) U/L ALT (4-49) U/L Total Protein (6.3-8.2) g/dL Albumin (3.5-5.0) g/dL Crossmatch Microbiology - Last 24 Hours (Table) 04/05/24 08:26 Blood Culture - Preliminary Blood Assessment and Plan Assessment: 73 yo male pod #4 s/p subtotal colectomy for massive bleeding -prognosis guarded -continue to monitor hgb Time with Patient: Less than 30
[2024-04-08] MEDS ORDERED: ONDANSETRON 4 MG/2 ML VIAL IVP PRN (17:10)
[2024-04-08] MEDS ORDERED: LORazepam 2 MG/ML INJ IV PRN (17:10)
[2024-04-08] MEDS ORDERED: MORPHINE SULFATE 2 MG/ML SYRINGE IV PRN (17:10)
[2024-04-08] MEDS: MORPHINE SULFATE 4 MG/ML SYRINGE IV PRN (17:52)
--- NOTE | 2024-04-09 06:38 | P.DS ---
Providers Date of admission: 04/04/24 16:24 Expected date of discharge: 04/08/24 Attending physician: Jeb Lui MD Consults: 04/04/24 16:04 Consult Physician Urgent Consulting Provider: Sarah Rojas Consult Reason/Comments: GI bleed Do you want consulting provider notified?: Yes 04/04/24 16:45 Consult Physician Urgent Consulting Provider: Cameron Pollock Consult Reason/Comments: ICU management Do you want consulting provider notified?: Yes 04/04/24 20:02 Consult Physician Urgent Consulting Provider: Jameel East Consult Reason/Comments: Acute GI bleeding with extravasation on imaging Do you want consulting provider notified?: Yes 04/06/24 09:16 Consult Physician Stat Consulting Provider: Eva Huerta Consult Reason/Comments: Coagulopathy Do you want consulting provider notified?: Yes 04/07/24 08:19 Consult Physician Stat Consulting Provider: Elias Urrutia Consult Reason/Comments: Pericardial effusion Do you want consulting provider notified?: Yes 04/08/24 07:50 Consult Physician Stat Consulting Provider: Nino Salgado Consult Reason/Comments: RAMSES Do you want consulting provider notified?: Yes Primary care physician: [facility] Hospital Course: note: 73 year old M with PMH of COPD, CAD, PVD, L iliac stent presented to the ED after a syncopal episode at home after an episode of diarrhea. In the ED he underwent extensive evaluation. BP 83/60, HR 86, T 97.4F, RR 18, 80% on RA?. CBC, Coag panel, CMP significant for RBC 3.62, Hg 12.1, Hct 35.5, Na 130, K 5.7, BUN 24, glu 145, alb 3.4. Mag 1.5. Troponin < 0.012. UA negative. CXR chronic changes. CT head and C-spine no acute process. EKG sinus rhythm with first degree AV block. Initially plans for discharge home however patient had a large maroon colored bowel movement and a Hg drop to 9.4 while in the ED. 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 ER provider discussed the case with GI and arrangements were made for admission to ICU for C-scope tomorrow. Transfused 4 units PRBC. GI evaluated the patient and recommended surgery consult. 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 Post operatively he had significant output from his ileostomy and hypotension requiring Levophed, Vasopressin and multiple NS boluses. Underwent EGD which showed old blood in the stomach and duodenum, ga stritis and duodenitis, fresh blood in the third portion of the duodenum with no mucosal lesions. Case discussed with Dr. Rojas recommending CTA Abd to rule out aortoenteric fistula. 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 Vascular Sx consulted noted no signs of aortoenteric fistula. Heme- Onc consulted for coagulopathy, likely due to shock liver, FFP and tagged RBC study ordered. Echo showed EF 55-60% with moderate pericardial effusion, Cardiology consulted, recommending no tamponade and repeat Echo for 04/08. 04/07 Patient was seen and examined. Intubated sedated with Propofol at 50 mcg/kg/min + Nimbex at 1.5 mcg/kg/min +Fentanyl at 0.25 mcg/kg/hr. POD 3 subtotal colectomy with end ileostomy. Currently on Levophed at 0.16 mcg/kg/min and Vasopressin at 0.03 units/min. Antibiotics include Zosyn 3.375g IV TID. Nutrition via TPN. He was transfused [address] Tamez recommendations. CBC and CMP significant for WBC 23.1, RBC 3.73, Hg 11.3, Hct 36.3, Plt 84, Na 134, K 5.2, BUN 90, Cr 3.13, Ca 7.9, alb 2.1, AST 554, ALT 1914. Phos 7.3. Mag 2.5. ABG pH 7.05, pCO2 >98, pO2 202 FiO2 100. CXR done today shows LLL opacity. The case was discussed extensively with family at bedside. Patient is extremely poor prognosis. He has shown evidence of end organ failure with his kidneys and liver. Family was agreeable for comfort measures. Nimbex was weaned off and patient was terminally weaned off the ventilator. He on 04/08. General: Intubated Derm: Warm, dry Head: Atraumatic, normocephalic, symmetric Eyes: no lid lag, anicteric sclera Mouth: No lip lesion, mucus membranes moist Cardiovascular: S1 S2 reg. 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/05 Hypovolemic versus septic shock Coagulopathy Pericardial effusion Acute kidney injury Shock Liver Lactic acidosis likely due to above Acute hypoxic respiratory failure COPD exacerbation Hyperglycemia Hyponatremia CAD, PVD, L iliac stent Resolved: HyperK, HypoMag Patient Condition at Discharge: Critical Plan - Discharge Summary Discharge Rx Participant: Yes New Discharge Prescriptions: No Action Aspirin EC [Ecotrin Low Dose] 81 mg PO DAILY Tiotropium 2.5 Mcg/Puff [Spiriva Respimat 2.5 Mcg] 2 puff INHALATION RT-DAILY Mometasone/Formoterol [Dulera 200 Mcg-5 Mcg Inhaler] 2 puff INHALATION RT-BID Ipratropium Nebulized [Atrovent Nebulized 0.2 MG/ML] 0.5 mg INHALATION RT-QID PRN PRN Reason: Shortness Of Breath Atorvastatin [Lipitor] 40 mg PO HS traMADol HCL 100 mg PO Q8H PRN PRN Reason: Pain predniSONE 5 mg PO DAILY Ketoconazole 2% Cream [Nizoral 2%] 1 applic TOPICAL DAILY PRN PRN Reason: FEET Formoterol Fumarate [Perforomist] 20 mcg INHALATION RT-BID Albuterol Inhaler [Ventolin Hfa Inhaler] 2 puff INHALATION RT-Q6H PRN PRN Reason: Shortness Of Breath lisinopriL [Zestril] 10 mg PO DAILY Omeprazole [PriLOSEC] 20 mg PO DAILY Discharge Medication List Aspirin EC [Ecotrin Low Dose] 81 mg PO DAILY 12/11/19 [History] Albuterol Inhaler [Ventolin Hfa Inhaler] 2 puff INHALATION RT-Q6H PRN 04/04/24 [History] Atorvastatin [Lipitor] 40 mg PO HS 04/04/24 [History] Formoterol Fumarate [Perforomist] 20 mcg INHALATION RT-BID 04/04/24 [History] Ipratropium Nebulized [Atrovent Nebulized 0.2 MG/ML] 0.5 mg INHALATION RT-QID PRN 04/04/24 [History] Ketoconazole 2% Cream [Nizoral 2%] 1 applic TOPICAL DAILY PRN 04/04/24 [History] Mometasone/Formoterol [Dulera 200 Mcg-5 Mcg Inhaler] 2 puff INHALATION RT-BID 04/04/24 [History] Omeprazole [PriLOSEC] 20 mg PO DAILY 04/04/24 [History] Tiotropium 2.5 Mcg/Puff [Spiriva Respimat 2.5 Mcg] 2 puff INHALATION RT-DAILY 04/04/24 [History] lisinopriL [Zestril] 10 mg PO DAILY 04/04/24 [History] predniSONE 5 mg PO DAILY 04/04/24 [History] traMADol HCL 100 mg PO Q8H PRN 04/04/24 [History] Follow up Appointment(s)/Referral(s): [facility],Clinic [Primary Care Provider] - 1-2 days Discharge Disposition: - Preliminary Cause of Preliminary Cause of : Hypovolemic versus septic shock
== END 2024-04-08 20:47 | disposition expired | DRG 329 ==
LOC: EC 10:37 → 2SICU 16:24
PROVIDERS: ADMIT Family Medicine; ATTEND Family Medicine
PROC: 0DBE0ZZ Excision of Large Intestine, Open Approach (ICD-10-PCS; 2024-04-04)
PROC: 30233K1 Transfusion of Nonautologous Frozen Plasma into Peripheral Vein, Percutaneous Approach (ICD-10-PCS; 2024-04-04)
PROC: 30233N1 Transfusion of Nonautologous Red Blood Cells into Peripheral Vein, Percutaneous Approach (ICD-10-PCS; 2024-04-04)
PROC: 0D1B0Z4 Bypass Ileum to Cutaneous, Open Approach (ICD-10-PCS; principal; 2024-04-04 21:30)
PROC: 0DJ08ZZ Inspection of Upper Intestinal Tract, Via Natural or Artificial Opening Endoscopic (ICD-10-PCS; 2024-04-05)
PROC: 3E043XZ Introduction of Vasopressor into Central Vein, Percutaneous Approach (ICD-10-PCS; 2024-04-05)
PROC: 5A1945Z Respiratory Ventilation, 24-96 Consecutive Hours (ICD-10-PCS; 2024-04-05)
PROC: 3E0436Z Introduction of Nutritional Substance into Central Vein, Percutaneous Approach (ICD-10-PCS; 2024-04-06)
PROC: 03HY32Z Insertion of Monitoring Device into Upper Artery, Percutaneous Approach (ICD-10-PCS; 2024-04-07)
PROC: 4A133B1 Monitoring of Arterial Pressure, Peripheral, Percutaneous Approach (ICD-10-PCS; 2024-04-07)
PROC: 4A133J1 Monitoring of Arterial Pulse, Peripheral, Percutaneous Approach (ICD-10-PCS; 2024-04-07)
DX: K92.2 Gastrointestinal hemorrhage, unspecified (principal); J18.9 Pneumonia, unspecified organism; J96.01 Acute respiratory failure with hypoxia; N17.0 Acute kidney failure with tubular necrosis; J96.02 Acute respiratory failure with hypercapnia; K72.00 Acute and subacute hepatic failure without coma; K65.1 Peritoneal abscess; D62 Acute posthemorrhagic anemia; D68.9 Coagulation defect, unspecified; E87.1 Hypo-osmolality and hyponatremia; E87.20 Acidosis, unspecified; I31.39 Other pericardial effusion (noninflammatory); J44.1 Chronic obstructive pulmonary disease with (acute) exacerbation; J44.0 Chronic obstructive pulmonary disease with (acute) lower respiratory infection; R57.1 Hypovolemic shock; E87.5 Hyperkalemia; I10 Essential (primary) hypertension; D69.6 Thrombocytopenia, unspecified; F32.A Depression, unspecified; I73.9 Peripheral vascular disease, unspecified; Z66 Do not resuscitate; Z51.5 Encounter for palliative care; I71.40 Abdominal aortic aneurysm, without rupture, unspecified; I48.0 Paroxysmal atrial fibrillation; I35.1 Nonrheumatic aortic (valve) insufficiency; I25.10 Atherosclerotic heart disease of native coronary artery without angina pectoris; K29.70 Gastritis, unspecified, without bleeding; K29.80 Duodenitis without bleeding; E78.5 Hyperlipidemia, unspecified; F17.200 Nicotine dependence, unspecified, uncomplicated; F41.9 Anxiety disorder, unspecified; E83.42 Hypomagnesemia; E86.1 Hypovolemia; E16.2 Hypoglycemia, unspecified; I44.0 Atrioventricular block, first degree; T38.0X5A Adverse effect of glucocorticoids and synthetic analogues, initial encounter; Z79.82 Long term (current) use of aspirin; Z79.899 Other long term (current) drug therapy; Z79.52 Long term (current) use of systemic steroids; Z79.51 Long term (current) use of inhaled steroids; I25.2 Old myocardial infarction; Z79.01 Long term (current) use of anticoagulants
CPT/HCPCS: 36415; 36430; 36600; 43235; 70450; 71045; 71046; 71260; 72125; 74175; 74177; 80048; 80053; 81003; 82040; 82330; 82805; 83036; 83605; 83615; 83735; 84100; 84132; 84478; 84484; 85025; 85027; 85379; 85384; 85610; 85730; 86850; 86900; 86901; 86920; 87040; 87070; 87077; 87186; 87205; 88309; 93005; 93306; 93308; 94002; 94003; 94640; 94660; 96365; 96375; 99291